=== PATIENT | male | born 1950 | race Caucasian/White ===

== ENCOUNTER → 2020-08-18 09:40 | Outpatient (BNVA) | payer MEDICARE, MEDICAID, SELFPAY | PROVIDERS: PCP Internal Medicine; Visit Provider Urology | DX: N40.1 Benign prostatic hyperplasia with lower urinary tract symptoms (principal); N13.8 Other obstructive and reflux uropathy; R39.14 Feeling of incomplete bladder emptying; R35.1 Nocturia | CPT/HCPCS: 99214 ==

== ENCOUNTER 2020-09-01 07:44 | Outpatient (REF) | payer MEDICARE, MEDICAID, SELFPAY ==
[2020-09-01 11:30] LABS: MANUAL DIFF FLAG NO
[2020-09-01 11:37] LABS: Basophils Percent Auto 0.2 % (0-2); Eosinophils Absolute Auto 0.2 X10*3/uL (0.0-0.4); Eosinophils Percent Auto 1.5 % (0-4); Hematocrit 47.6 % (42-52); Hemoglobin 15.4 g/dl (14.0-18.0); Imm Gran Abs Auto 0.43 X10*3/uL (0.00-0.03); Imm Gran Pct Auto 3.2 % (0.0-0.4); Lymphocytes Absolute Auto 1.4 X10*3/uL (1.2-4.9); Lymphocytes Percent Auto 10.8 % (20-40); Mean Corpuscular HGB Conc 32.4 g/dl (31.0-36.0); Mean Corpuscular Hemoglobin 28.8 pg (27.0-33.0); Mean Platelet Volume 10.9 fL (9.4-12.4); Monocytes Absolute Auto 0.8 X10*3/uL (0.1-1.2); Monocytes Percent Auto 5.9 % (2-11); Neutrophils Absolute Auto 10.5 X10*3/uL (2.0-8.3); Neutrophils Percent Auto 78.4 % (45-73); Platelet Count 184 X10*3/uL (160-400); Red Blood Count 5.35 X10*6/uL (4.60-5.80); Red Cell Distribution Width 16.2 % (11.0-16.0); White Blood Count 13.3 X10*3/uL (4.8-10.8)
[2020-09-01 11:54] LABS: Anion Gap 16 (12-20); Blood Urea Nitrogen 24 mg/dL (9-16); Calcium 8.4 mg/dL (8.4-10.2); Carbon Dioxide 27 mmol/L (22-29); Chloride 99 mmol/L (96-108); Estimated Glomerular Filt Rate > 60; Glucose Random 73 mg/dL (60-115); Potassium 4.4 mmol/l (3.3-5.1); Sodium 138 mmol/L (135-145)
== END 2020-09-01 07:45 | disposition home or self-care (01) ==
LOC: HO.HMGCLDS 07:44
PROVIDERS: PCP Internal Medicine; Visit Provider Psychiatry & Neurology Neurology
DX: G70.00 Myasthenia gravis without (acute) exacerbation (principal)
CPT/HCPCS: 36415; 80048; 85025

== ENCOUNTER → 2020-09-21 08:36 | Outpatient (BNVA) | payer MEDICARE, MEDICAID, SELFPAY | PROVIDERS: PCP Internal Medicine; Referring Provider Internal Medicine; Visit Provider Internal Medicine | DX: E03.9 Hypothyroidism, unspecified (principal); E04.2 Nontoxic multinodular goiter; E27.49 Other adrenocortical insufficiency; Z79.899 Other long term (current) drug therapy | CPT/HCPCS: Q3014 ==

== ENCOUNTER 2020-09-23 10:43 | Outpatient (REF) | payer MEDICARE, MEDICAID, SELFPAY ==
[2020-09-23 14:48] LABS: Free T4 (Free Thyroxine) 0.86 ng/dL (0.71-1.85); Thyroid Stimulating Hormone 1.26 uIU/mL (0.32-4.0)
== END 2020-09-23 10:44 | disposition home or self-care (01) ==
LOC: HO.HMGCLDS 10:43
PROVIDERS: PCP Internal Medicine; Visit Provider Internal Medicine
DX: E03.9 Hypothyroidism, unspecified (principal); E04.2 Nontoxic multinodular goiter; I10 Essential (primary) hypertension; E78.5 Hyperlipidemia, unspecified
CPT/HCPCS: 84439; 84443

== ENCOUNTER 2020-09-29 07:49 | Outpatient (REF) | payer MEDICARE, MEDICAID, SELFPAY ==
--- NOTE | 2020-09-29 07:56 | CT_ITS ---
EXAMINATION: CT CHEST WITH CONTRAST CLINICAL INFORMATION: Myasthenia gravis COMPARISON: Previous chest x-rays most recent August 2018 TECHNIQUE: Multidetector volumetric CT imaging of the chest was obtained after the administration of 65mL of Omnipaque 350 intravenous contrast without immediate adverse reactions. Axial MIP volume rendering provided. Sagittal and coronal reformatted images were obtained. This CT examination was performed using dose optimization techniques as appropriate, variously including the following: *Automated exposure control *Adjustment of mA and/or kV according to patient size (this includes techniques or standardized protocols for targeted exams where dose is matched to indication/reason for exam; i.e. extremities or head) *Use of iterative reconstruction technique DLP: 218 mGy-cm FINDINGS: LUNGS: There is a 1.8 x 1.3 cm peripheral or subpleural right lower lobe nodule axial image 441 series 7. This has slightly spiculated margins and adjacent pleural thickening. There is a 2 mm peripheral or subpleural left lower lobe nodule axial image 289 series 7. There is a 2 mm right lower lobe nodule axial image 354 series 7. There is a 4 mm left lower lobe nodule axial image 457 series 7. There is linear scarring or subsegmental atelectasis at the lung bases. MEDIASTINUM: The thyroid gland is normal. No mediastinal mass is seen. There are small bilateral hilar and mediastinal lymph nodes. No enlarged hilar or mediastinal lymph nodes are seen. The heart does not appear enlarged. There is minimal coronary artery calcification. There is no pericardial effusion. The thoracic aorta is normal in caliber. PLEURA: There is no pleural effusion. There is minimal right pleural thickening adjacent to the right lower lobe nodule. AXILLA: No lymphadenopathy. UPPER ABDOMEN: The liver is low in attenuation suggestive of fatty infiltration. There is a calcification in the spleen. OSSEOUS STRUCTURES: There are degenerative changes of the spine. There is curvature of the upper lumbar spine to the right. CT/CT chest w con IMPRESSION: No mediastinal mass seen. 1.8 x 1.3 cm right lower lobe nodule suspicious for malignancy. PET/CT scan or tissue sampling should be considered. Small bilateral hilar and mediastinal lymph nodes. Mild coronary artery calcification. Fatty liver.
[2020-09-29] MEDS: iohexoL 350 MG/ML 100 ML INFUS..BTL IV (08:51)
== END 2020-09-29 07:50 | disposition home or self-care (01) ==
LOC: HO.CT 07:49
PROVIDERS: Visit Provider Psychiatry & Neurology Neurology
DX: G70.00 Myasthenia gravis without (acute) exacerbation (principal)
CPT/HCPCS: 71260

== ENCOUNTER 2020-10-08 09:03 | Outpatient (REF) | payer MEDICARE, MEDICAID, SELFPAY ==
[2020-10-08 12:04] LABS: Prostate Specific Antigen 0.49 ng/mL (<0.05-4.0)
[2020-10-08 12:15] LABS: Alanine Aminotransferase 76 U/L (0-40); Albumin Level 3.9 g/dL (3.5-5.0); Alkaline Phosphatase 65 U/L (39-117); Anion Gap 10 (12-20); Aspartate Amino Transferase 44 U/L (5-37); Bilirubin Total 0.6 mg/dL (0.0-1.0); Blood Urea Nitrogen 25 mg/dL (9-16); Calcium 8.6 mg/dL (8.4-10.2); Carbon Dioxide 28 mmol/L (22-29); Chloride 103 mmol/L (96-108); Estimated Glomerular Filt Rate > 60; Glucose Fasting 94 mg/dL (60-99); Potassium 4.4 mmol/l (3.3-5.1); Sodium 137 mmol/L (135-145); Total Protein 6.2 g/dL (6.5-8.0)
== END 2020-10-08 09:04 | disposition home or self-care (01) ==
LOC: HO.HMGCLDS 09:03
PROVIDERS: PCP Internal Medicine; Referring Provider Psychiatry & Neurology Neurology; Visit Provider Urology
DX: G70.00 Myasthenia gravis without (acute) exacerbation (principal); E03.9 Hypothyroidism, unspecified; I10 Essential (primary) hypertension; E04.2 Nontoxic multinodular goiter; E78.5 Hyperlipidemia, unspecified
CPT/HCPCS: 80048; 80053; 84153

== ENCOUNTER 2020-10-12 09:20 | Outpatient (REF) | payer MEDICARE, MEDICAID, SELFPAY ==
--- NOTE | 2020-10-12 09:34 | XR_ITS ---
EXAMINATION: XR PELVIS CLINICAL INFORMATION: Pain left hip. COMPARISON: AP pelvis 02/21/2019 TECHNIQUE: AP view of the pelvis. FINDINGS: There is a total right hip arthroplasty with prosthetic components in satisfactory alignment. There is mild loss of left hip joint space with periarticular spurring. No bony erosive changes. The SI joints are symmetrical and normal. The soft tissues are normal. XR/XR pelvis 1-2V IMPRESSION: Total right hip arthroplasty with prosthetic components in satisfactory alignment. Unremarkable left hip joint exam.
== END 2020-10-12 09:21 | disposition home or self-care (01) ==
LOC: HO.HOSX 09:20
PROVIDERS: PCP Internal Medicine; Referring Provider Internal Medicine; Visit Provider Orthopaedic Surgery
DX: M70.62 Trochanteric bursitis, left hip (principal); M25.559 Pain in unspecified hip; G70.00 Myasthenia gravis without (acute) exacerbation; Z96.641 Presence of right artificial hip joint
CPT/HCPCS: 72170; 99212

== ENCOUNTER → 2020-10-23 10:07 | Outpatient (BNVA) | payer MEDICARE, MEDICAID, SELFPAY | PROVIDERS: PCP Internal Medicine; Visit Provider Surgery | DX: R91.1 Solitary pulmonary nodule (principal); G70.00 Myasthenia gravis without (acute) exacerbation | CPT/HCPCS: 99205 ==

== ENCOUNTER 2020-10-26 08:14 | Outpatient (REF) | payer MEDICARE, MEDICAID, SELFPAY ==
--- NOTE | 2020-10-26 13:29 | PFT_ITS ---
Forced vital capacity moderately reduced. FEV1 and [id number] are markedly reduced and MVV slightly reduced. Bronchodilator challenge was not given as the patient had used the bronchodilator inhaler just before coming. Total lung capacity and residual volume are normal. Diffusion capacity moderately decreased. CONCLUSION: Moderately severe obstructive airway disorder. Compared to the results of 08/31/2018, FVC, FEV1, and [id number] are all slightly decreased. Diffusion capacity is also moderately decreased. Clinical correlation recommended. David Vizcaino MD MSB/MODL / [id number]
== END 2020-10-26 08:15 | disposition home or self-care (01) ==
LOC: HO.RESP 08:14
PROVIDERS: Visit Provider Surgery
DX: Z01.818 Encounter for other preprocedural examination (principal); R91.1 Solitary pulmonary nodule
CPT/HCPCS: 94010; 94727; 94729

== ENCOUNTER 2020-11-12 08:55 | Outpatient (REF) | payer MEDICARE, MEDICAID, SELFPAY ==
--- NOTE | 2020-11-12 09:00 | XR_ITS ---
EXAMINATION: XR CHEST CLINICAL INFORMATION: Unspecified abdominal pain. Right lower lobe nodule on CT. COMPARISON: Chest CT 09/29/2020, chest radiographs 08/16/2018 TECHNIQUE: Frontal and lateral views of the chest. FINDINGS: There is linear subsegmental atelectasis left lateral base. The lateral view also shows pleural-based density posteriorly in area previously noted nodule on CT 09/29/2020. Current finding may represent pleural-parenchymal scarring/postsurgical change. The vascularity is normal. The heart is normal in size. There is no lobar or segmental airspace consolidation or definite groundglass opacity. There are multilevel degenerative changes thoracic spine. No free air beneath the diaphragms. No pneumothorax. XR/XR chest 2V IMPRESSION: 1. Pleural-based postoperative scarring versus persistent pleural-based density right posterior lower lobe as noted on prior CT 09/29/2020. 2. Disc atelectasis left lateral base. 3. No pneumothorax. No pneumoperitoneum beneath the diaphragms.
--- NOTE | 2020-11-12 09:00 | XR_ITS ---
EXAMINATION: XR ABDOMEN COMPLETE CLINICAL INDICATION: Unspecified abdominal pain COMPARISON: Pelvic radiographs 10/12/2020 TECHNIQUE: Supine and upright views of the abdomen are obtained for a total of 4 views. FINDINGS: There is subcutaneous emphysema is suggested at the right lateral upper abdominal soft tissues near the thoracoabdominal junction. No pneumothorax demonstrated on today's chest radiograph. There is no free air beneath the diaphragm. There is no gaseous dilatation of bowel or differential air-fluid levels. No visible urinary tract calculi. There are multilevel degenerative changes thoracic and lumbosacral spine. Right hip replacement. XR/XR abdomen min 2V IMPRESSION: 1. Subcutaneous gas suggested upper right lateral abdominal wall near thoracoabdominal junction. 2. No bowel obstruction or pneumoperitoneum. No pneumothorax on today's chest x-ray.
[2020-11-12 11:36] LABS: Estimated Average Glucose 117 mg/dL; Hemoglobin A1c % 5.7 %
[2020-11-12 11:55] LABS: Creatinine Urine 69.05 mg/dL; Microalbum/Creatinine Ratio Ur 52.1 ug/mg cr
[2020-11-12 12:10] LABS: Alanine Aminotransferase 63 U/L (0-40); Albumin Level 4.2 g/dL (3.5-5.0); Alkaline Phosphatase 75 U/L (39-117); Anion Gap 15 (12-20); Aspartate Amino Transferase 48 U/L (5-37); Bilirubin Total 0.6 mg/dL (0.0-1.0); Blood Urea Nitrogen 26 mg/dL (9-16); Calcium 8.8 mg/dL (8.4-10.2); Carbon Dioxide 25 mmol/L (22-29); Chloride 102 mmol/L (96-108); Cholesterol 140 mg/dL; Estimated Glomerular Filt Rate > 60; Glucose Fasting 92 mg/dL (60-99); HDL Cholesterol 57 mg/dL; LDL Cholesterol Calculated 38 mg/dl; Potassium 4.4 mmol/l (3.3-5.1); Sodium 138 mmol/L (135-145); Total Protein 6.8 g/dL (6.5-8.0); Triglycerides 227 mg/dL
== END 2020-11-12 08:56 | disposition home or self-care (01) ==
LOC: HO.HMGCX 08:55
PROVIDERS: PCP Internal Medicine; Visit Provider Surgery
DX: R10.9 Unspecified abdominal pain (principal); R91.1 Solitary pulmonary nodule; E78.5 Hyperlipidemia, unspecified; I10 Essential (primary) hypertension; E03.9 Hypothyroidism, unspecified; E04.2 Nontoxic multinodular goiter
CPT/HCPCS: 36415; 71046; 74019; 80053; 80061; 82043; 83036

== ENCOUNTER → 2020-11-23 09:17 | Outpatient (BNVA) | payer MEDICARE, MEDICAID, SELFPAY | LOC: CF 15:47 | PROVIDERS: Absent Provider Internal Medicine; PCP Internal Medicine; Visit Provider Internal Medicine | DX: J44.9 Chronic obstructive pulmonary disease, unspecified (principal); R91.1 Solitary pulmonary nodule; G70.00 Myasthenia gravis without (acute) exacerbation | CPT/HCPCS: 99212 ==

== ENCOUNTER → 2020-11-24 08:22 | Outpatient (BNVA) | payer MEDICARE, MEDICAID, SELFPAY | PROVIDERS: PCP Internal Medicine; Visit Provider Urology | DX: N40.1 Benign prostatic hyperplasia with lower urinary tract symptoms (principal); R35.1 Nocturia | CPT/HCPCS: 81002; 99212 ==

== ENCOUNTER → 2020-11-27 09:06 | Outpatient (BNVA) | payer MEDICARE, MEDICAID, SELFPAY | PROVIDERS: PCP Internal Medicine; Visit Provider Surgery | DX: R91.1 Solitary pulmonary nodule (principal); Z09 Encounter for follow-up examination after completed treatment for conditions other than malignant neoplasm | CPT/HCPCS: 99212 ==

== ENCOUNTER 2020-12-30 09:16 | Outpatient (REF) | payer MEDICARE, MEDICAID, SELFPAY ==
--- NOTE | ~2020-12-30 | CT_ITS ---
EXAMINATION: CT CHEST WITHOUT CONTRAST CLINICAL INFORMATION: Follow-up pulmonary nodule COMPARISON: Previous chest CT September 2020 TECHNIQUE: Multidetector volumetric CT imaging of the chest was done. Axial MIP volume rendering provided. Sagittal and coronal reformatted images were obtained. This CT examination was performed using dose optimization techniques as appropriate, variously including the following: *Automated exposure control *Adjustment of mA and/or kV according to patient size (this includes techniques or standardized protocols for targeted exams where dose is matched to indication/reason for exam; i.e. extremities or head) *Use of iterative reconstruction technique DLP: 297 mGy-cm FINDINGS: LUNGS: There is a 2 mm peripheral calcified right upper lobe nodule axial image 204 series 7 that is stable. There is a irregularly-shaped 5 mm right middle lobe nodule axial image 329 series 7 that is stable. The previously identified peripheral or subpleural 1.5 cm right lower lobe nodule is no longer seen. There are postsurgical changes with surgical staple line in the right lower lobe and adjacent scarring or subsegmental atelectasis that is new. There is a 3 mm left lower lobe nodule axial image 113 series 8 that appears slightly decreased in size from 4 mm on previous exam. MEDIASTINUM: There is mild coronary artery calcification. The mediastinum is otherwise normal. PLEURA: There is no pleural effusion. No pleural mass or thickening. AXILLA: No lymphadenopathy. UPPER ABDOMEN: Unremarkable OSSEOUS STRUCTURES: There is scoliosis and degenerative change of the spine. CT/CT chest wo con IMPRESSION: New postsurgical change to the right lower lobe. Small pulmonary nodules are stable.
== END 2020-12-30 09:17 | disposition home or self-care (01) ==
LOC: HO.CT 09:16
PROVIDERS: PCP Internal Medicine; Visit Provider Surgery
DX: R91.1 Solitary pulmonary nodule (principal)
CPT/HCPCS: 71250

== ENCOUNTER → 2021-01-06 13:16 | Outpatient (BNVA) | payer MEDICARE, MEDICAID, SELFPAY | PROVIDERS: PCP Internal Medicine; Visit Provider Anesthesiology | DX: M51.36 Other intervertebral disc degeneration, lumbar region (principal); M47.817 Spondylosis without myelopathy or radiculopathy, lumbosacral region; G89.4 Chronic pain syndrome; Z79.899 Other long term (current) drug therapy | CPT/HCPCS: Q3014 ==

== ENCOUNTER → 2021-01-15 09:03 | Outpatient (BNVA) | payer MEDICARE, MEDICAID, SELFPAY | PROVIDERS: PCP Internal Medicine; Visit Provider Surgery | DX: R91.1 Solitary pulmonary nodule (principal); G35 Multiple sclerosis; Z79.899 Other long term (current) drug therapy | CPT/HCPCS: 99212 ==

== ENCOUNTER → 2021-01-27 09:34 | Outpatient (BNVA) | payer MEDICARE, MEDICAID, SELFPAY | PROVIDERS: PCP Internal Medicine; Visit Provider Internal Medicine Cardiovascular Disease | DX: I45.2 Bifascicular block (principal); R06.00 Dyspnea, unspecified | CPT/HCPCS: 93005; 99212 ==

== ENCOUNTER → 2021-02-18 09:28 | Outpatient (BNVA) | payer MEDICARE, MEDICAID, SELFPAY | PROVIDERS: PCP Internal Medicine; Visit Provider Internal Medicine | DX: R91.1 Solitary pulmonary nodule (principal); J44.9 Chronic obstructive pulmonary disease, unspecified; R06.00 Dyspnea, unspecified; Z79.899 Other long term (current) drug therapy | CPT/HCPCS: 99212 ==

== ENCOUNTER 2021-02-19 11:39 | Day surgery (SDC) | payer MEDICARE, MEDICAID, SELFPAY ==
[2021-02-17 10:08] VITALS: BMI 33.9
--- NOTE | 2021-02-17 13:08 | P.CONAN_ITS ---
Documented by User: Alexandria Cox 02/18/21 09:13 HPI - Anesthesia Eval Consult details Narrative: 71yo M for Lumbar Spinal Cord Simulation Trial *Myesthenia Gravis - daily pyridostigmine and prednisone* Cardiac cleared at [facility] without pending ECHO and 30 day YOLANDA (w/u for new l eft posterior fasicular block) s/p Davinci right lower lobe wedge resection on 11/10/2020 for a spiculated nodule at the base of the right lower lobe Case reviewed with Dr Namrata STANLEY Active Problems Active Problems: All Active Problems (Updated 02/17/21 @ 10:23 by Cece Maddox) BPH loc w urin obs/LUTS (Acute) Nocturia associated with benign prostatic hyperplasia (Acute) Incomplete emptying of bladder due to benign prostatic hyperplasia (Acute) Pulmonary nodule (Acute) Bifascicular block (Acute) JULIEN (dyspnea on exertion) (Acute) Chronic pain syndrome (Acute) Spondylosis of lumbosacral region (Acute) Disc degeneration, lumbar (Acute) Hyperglycemia (Acute) Abdominal pain (Acute) Myasthenia gravis (Acute) Hyperlipidemia (Acute) Hypertension (Acute) Toe ulcer (Acute) Iatrogenic adrenal insufficiency (Acute) Multinodular thyroid (Acute) Hypothyroid (Acute) COPD (chronic obstructive pulmonary disease) (Acute) Past Medical History Medical History Abdominal pain Arthritis Back pain Chronic pain syndrome COPD (chronic obstructive pulmonary disease) Degenerative disc disease, lumbar Diastolic dysfunction Disc degeneration, lumbar JULIEN (dyspnea on exertion) Emphysema of lung GERD (gastroesophageal reflux disease) Hyperglycemia Hyperlipidemia Hypertension Hypothyroid Iatrogenic adrenal insufficiency Iron deficiency anemia Leg cramps Lung nodule Multinodular thyroid Myasthenia gravis Osteoarthritis 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 Mother No problems noted. Surgical History Surgical History History of hydrocelectomy History of lung surgery History of total right hip arthroplasty Hx of colonoscopy Hx of tonsillectomy Social History Social History Are you a primary caregivers non medical to a significant other at home: No Do you presently have visiting nurse or other home services: No Smoking Status: Never smoker Second Hand Smoke Exposure: No Use of substances other than those prescribed or required for medical reasons: No Have you been hit, kicked, punched, or otherwise hurt by someone within the past year? If so, by whom?: No Advance Directives: No Advance Directives Information Provided: No Advance Directives on File: No Recently lost weight without trying: No Current occupational status: retired Current occupation: right handed Meds Allergies Allergy/AdvReac Type Severity Reaction Status Date / Time No Known Allergies Allergy Verified 02/17/21 09:49 [No Known Allergies*] Home Medications Medication Instructions Recorded Confirmed Last Taken Type albuterol sulfate 90 mcg/actuation 2 puff INHALATION Q4-6H PRN 08/18/20 02/17/21 Unknown History aerosol inhaler atorvastatin 20 mg tablet 20 mg PO DAILY 08/18/20 02/17/21 Unknown History clotrimazole-betamethasone 1 1 applic TOPICAL DAILY 08/18/20 02/17/21 Unknown History %-0.05 % topical cream levothyroxine 50 mcg tablet 50 mcg PO DAILY 08/18/20 02/17/21 02/19/21 History tamsulosin 0.4 mg capsule 0.4 mg PO DAILY 08/18/20 02/17/21 Unknown History acetaminophen [Tylenol] 650 mg PO Q6H PRN 08/28/20 02/17/21 02/19/21 History multivitamin 1 cap PO DAILY 08/28/20 02/17/21 Unknown History lisinopril 20 mg tablet 20 mg PO DAILY 09/21/20 02/17/21 Unknown History prednisone 10 mg tablet 5 mg PO TID tab 01/27/21 02/17/21 02/19/21 History pyridostigmine bromide 60 mg tablet 60 mg PO TID tab 01/27/21 02/17/21 02/19/21 History guaifenesin 600 mg tablet, 600 mg PO ONCE tab 02/18/21 Unknown History extended release 12 hr Exam Exam Date and Time: February 17, 2021 1308 Height,Weight and Vital Signs: Height 6 ft Weight 113.398 kg Pertinent Lab Results Pertinent Lab Results: Laboratory Tests 09/01/20 11/12/20 07:54 09:00 WBC 13.3 H Hgb 15.4 Hct 47.6 Plt Count 184 Sodium 138 Potassium 4.4 Chloride 102 Carbon Dioxide 25 BUN 26 H Creatinine 0.97 Narrative Narrative: EKG 01/2021 Sinus rhythm at 70 beats per minute, left posterior fascicular block, right bundle-branch block, PVC, poor R-wave progression. Inferior T-wave inversions (chronic). ECHO 2017 LV systolic function is normal EF 65-70% Mod increased LV wall thickness Grade 1-2 DD No obvious valve pathology Assessment and Plan Assessment Anesthesia Assessment: Chart Reviewed Documented by User: Zhanna Morgan 02/19/21 14:30 [facility] Past Medical History Medical History Abdominal pain Arthritis Back pain Chronic pain syndrome COPD (chronic obstructive pulmonary disease) Degenerative disc disease, lumbar Diastolic dysfunction Disc degeneration, lumbar JULIEN (dyspnea on exertion) Emphysema of lung GERD (gastroesophageal reflux disease) Hyperglycemia Hyperlipidemia Hypertension Hypothyroid Iatrogenic adrenal insufficiency Iron deficiency anemia Leg cramps Lung nodule Multinodular thyroid Myasthenia gravis Osteoarthritis 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 Mother No problems noted. Surgical History Surgical History History of hydrocelectomy History of lung surgery History of total right hip arthroplasty Hx of colonoscopy Hx of tonsillectomy Social History Social History Are you a primary caregivers non medical to a significant other at home: No Do you presently have visiting nurse or other home services: No Smoking Status: Never smoker Second Hand Smoke Exposure: No Use of substances other than those prescribed or required for medical reasons: No Have you been hit, kicked, punched, or otherwise hurt by someone within the past year? If so, by whom?: No Advance Directives: No Advance Directives Information Provided: No Advance Directives on File: No Recently lost weight without trying: No Current occupational status: retired Current occupation: right handed Meds Allergies Allergy/AdvReac Type Severity Reaction Status Date / Time No Known Allergies Allergy Verified 02/17/21 09:49 [No Known Allergies*] Home Medications Medication Instructions Recorded Confirmed Last Taken Type albuterol sulfate 90 mcg/actuation 2 puff INHALATION Q4-6H PRN 08/18/20 02/17/21 Unknown History aerosol inhaler atorvastatin 20 mg tablet 20 mg PO DAILY 08/18/20 02/17/21 Unknown History clotrimazole-betamethasone 1 1 applic TOPICAL DAILY 08/18/20 02/17/21 Unknown History %-0.05 % topical cream levothyroxine 50 mcg tablet 50 mcg PO DAILY 08/18/20 02/17/21 02/19/21 History tamsulosin 0.4 mg capsule 0.4 mg PO DAILY 08/18/20 02/17/21 Unknown History acetaminophen [Tylenol] 650 mg PO Q6H PRN 08/28/20 02/17/21 02/19/21 History multivitamin 1 cap PO DAILY 08/28/20 02/17/21 Unknown History lisinopril 20 mg tablet 20 mg PO DAILY 09/21/20 02/17/21 Unknown History prednisone 10 mg tablet 5 mg PO TID tab 01/27/21 02/17/21 02/19/21 History pyridostigmine bromide 60 mg tablet 60 mg PO TID tab 01/27/21 02/17/21 02/19/21 History guaifenesin 600 mg tablet, 600 mg PO ONCE tab 02/18/21 Unknown History extended release 12 hr Exam Airway Mallampati Class: III TM Dist: >3cm Neck ROM: Limited Heart: RRR Lungs: CTA Assessment and Plan Assessment Anesthesia Assessment: Anesthesia Plan Discussed and Chart Reviewed Final Anesthetic Review NPO: Yes ASA Class: III Final Preanesthetic Review: Meds/Allgs Chart Reviewed, Consent Obtained/Reviewed and Anes Risks/Benef Reviewed Patient Risk: Intermediate Procedure Risk: Intermediate Anesthetic Plan Anesthetic Plan: MAC: Disposition: Standard PACU
--- NOTE | ~2021-02-19 | FL_ITS ---
EXAMINATION: XR FLUOROSCOPY WITH IMAGES CLINICAL INFORMATION: Spinal stimulator trial COMPARISON: CT chest 12/30/2020, abdomen radiographs 11/12/2020 TECHNIQUE: Fluoroscopy performed by Dr. Fernie Bernstein. Fluoroscopy time: 7.1 minutes DAP: 72.2 Gycm2 Images: 2 FINDINGS: There is spinal stimulator electrode seen overlying the posterior thoracic spinal canal with electrode tip at level of T9. There are degenerative changes lower thoracic and upper lumbar spine with disc narrowing and asymmetric lateral bridging osteophytes. FL/FL guidance in OR IMPRESSION: Fluoroscopy for pain management procedure.
[2021-02-19 13:08] VITALS: BP 150/87; PULSE 68; RESP 19; TEMP 36.6; O2SAT 98; BMI 33.2
[2021-02-19] MEDS: Lactated Ringers 1,000 ML 50 ML IV (13:12)
--- NOTE | 2021-02-19 13:17 | PC.NURSE ---
question of cardiac clearance per Dr Morgan. Patient was seen by cardiology on 01/27/21
--- NOTE | 2021-02-19 13:20 | PC.NURSE ---
Per Dr Morgan she spoke to Dr Lares and mary to proceed with stimulator procedure
--- NOTE | 2021-02-19 13:52 | MHC.SHP ---
Pre-Procedural Eval Section A The patient is an INPATIENT: No Changes since office visit: Yes Patient answered all questions The History & Physical has been completed within 30 days and I have reviewed it.: No Section B Chief Complaint: Spondylosis of lubosacral region,disc degeneration Details of Present Illness: as above Relevant Family History (Specify if Yes): No Relevant Social History: None Present Medications: see Short Stay Collaborative assessment Medical History: Significant History History of Previous Operations: No relevant previous surgery Allergies: Allergies Allergy/AdvReac Type Severity Reaction Status Date / Time No Known Allergies Allergy Verified 02/17/21 09:49 [No Known Allergies*] Review of Systems Sugical H&P ROS: Negative: Cardiovascular, Respiratory, Neurological, Psychiatric, Hem-Onc, Allergic/Immunologic, Gastrointestinal, Genitourinary, Integumentary, Endocrine and Eyes/Ears/Nose/Throat and Yes, Specify: Constitution (morbid obesity) and Musculoskeletal (miastenia gravis) Exam Surgical H&P Exam: Normal: HEENT, Normal: Heart, Normal: Lungs, Normal: Extremities, Normal: Abdomen, Normal: Skin and Normal: Neurological Plan Diagnosis/Plan: Unchanged I have reviewed the history and physical and performed a pertinent physical examination on my patient. No changes have occurred unless specified.
--- NOTE | 2021-02-19 15:34 | PM.OP ---
Brief Operative Note Date of Service: 02/19/21 Pre-op diagnosis: Spondylosis lumbar spine disc degeneration scoliosis lumbar spine intractable lower back pain. Post-op diagnosis: same Procedure: Trial of Nevro spinal cord stimulator 1 lead only. Implants: None firm Surgeon: Fernie Bernstein MD Anesthesia: MAC Estimated blood loss (mL): 5 Pathology: none sent Condition: stable Disposition: PACU
--- NOTE | 2021-02-19 15:36 | W.PM.OPN ---
Operative Note Operative Note Date of Service: 02/19/21 Narrative: Mr. Leonard is very pleasant 71 years old gentleman who came today into the operating room for trial of spinal cord stimulator for the treatment of pain related to degenerative disc disease and chronic pain syndrome. Preoperatively patient received 2 g cefazolin _approximately 30 minutes before the procedure. After obtaining informed consent patient was brought to the operating room, he was positioned prone on operating table, [employer] [employer] monitors were applied and patient was deeply sedated. Time-out was performed delineating correct site, side, the nature of the procedure, patient's allergy, preoperative antibiotic. All operating room staff was participating in OR time-out procedure. Patient's entire back was prepped with ChloraPrep twice and draped with full body drape. Sterilely draped C-arm was brought over operating field and square picture of T12, L1, L2 vertebrae as were demonstrated on the screen. Severe scoliosis and severe spondylosis with multiple osteophytes some of those were kissing osteophytes were noted on the screen. . Attention FIRST was concentrated on the RIGHT T12-L1 epidural interspace. Very narrow distance between the vertebra is at L1-L2 levels and kissing osteophytes at this level were making impossible to advanced the needle into the epidural space at L1-L2. The same picture short of kissing osteophytes was at L2-L3 level. Most likely there were significant epidural adhesions at those levels which would prevent me to advance the electrode arrays to the thoracic level. The location of the projection of the right pedicle center of the L2 vertebra was found on the skin using C-arm. This location was injected with mixture of lidocaine 2% and Marcaine 0.5% 5 cc in approximate direction of needle advancement.. After that 10 cm 14 gauge straight introducer epidural needle was inserted through the fascia and advanced toward T12-L1 epidural interspace. The advancement of the needle was performed on anterior posterior and lateral views. Guitar wire and loss of resistance technique were used to locate epidural space. When guitar wire was spread in the epidural fashion, epidural lead was inserted through the skin and it was attempted to advance in the epidural space however unfortunately it deviated into the anterior epidural space and severe adhesions were preventing it to go to the right epidural space few mm above the needle tip. The decision was made to attempt insertion of the epidural needle on the left side and use the right side as a guide for the right epidural leads. Locationf the projection of the LEFT pedicle center of the L2 vertebra was found -using C-arm. This location was injected with mixture of lidocaine 2% and Marcaine 0.5% 5 cc.. . 10 cm 14 gauge curved introducer epidural needle was inserted through the skin and advanced to T12-L1 epidural interspace. The advancement of the needle was performed on anterior posterior and lateral views. Guitar wire and loss of resistance technique were used to locate epidural space. When guitar wire was spread in the epidural fashion, epidural lead was inserted through the needle and advanced to the T9 POSTERIOR EPIDURAL SPACE SLIGHTLY left to the midline. I was unable to advance the epidural leads any further T9 midlevel the epidural lead was bumping into the adhesions and looping inside of the epidural space patient was moving and he was clearly uncomfortable. The decision was made to keep this epidural lead at T9 level. After that 10 cm needle was removed from the projection of the L2 pedicle on the right and replaced with 15 cm coude needle. Attempts were made to advance this needle to the epidural space at T11-T12 level however the distance between the lamina as at this level was so small that I could not squeeze the needle through this interlaminar space. The decision made to remove the needle and attend the trial on 1 epidural lead. The lead was connected to the testing device and impedance was found appropriate. After that testing device was disconnected epidural needle was removed and anchoring device was dislodged on the needle. It was stitched to the skin with 2 silk sutures. Bacitracin ointment was applied to the level of the skin. Sterile dressing was applied. At this moment patient was awaken and transferred to the bed. He was recovering uneventfully in PACU.
[2021-02-19 15:40] VITALS: BP 123/79; PULSE 68; RESP 14; TEMP 36.7; O2SAT 94
[2021-02-19 15:55] VITALS: BP 142/84; PULSE 66; RESP 18; O2SAT 96
[2021-02-19 16:10] VITALS: BP 144/84; PULSE 64; RESP 17; O2SAT 95
== END 2021-02-19 16:50 | disposition home or self-care (01) ==
PROVIDERS: PCP Internal Medicine; Visit Provider Anesthesiology
PROC: (CPT 63650; principal; 2021-02-19 13:40)
DX: M47.817 Spondylosis without myelopathy or radiculopathy, lumbosacral region (principal); M51.36 Other intervertebral disc degeneration, lumbar region; G89.4 Chronic pain syndrome; G96.12 Meningeal adhesions (cerebral) (spinal); M25.78 Osteophyte, vertebrae; M48.26 Kissing spine, lumbar region; M41.9 Scoliosis, unspecified; G70.00 Myasthenia gravis without (acute) exacerbation; J44.9 Chronic obstructive pulmonary disease, unspecified; I10 Essential (primary) hypertension; E27.3 Drug-induced adrenocortical insufficiency; D50.9 Iron deficiency anemia, unspecified; Z79.52 Long term (current) use of systemic steroids; Z79.899 Other long term (current) drug therapy
CPT/HCPCS: 63650; C1897; J0690; J2250; J3010

== ENCOUNTER → 2021-02-25 10:23 | Outpatient (BNVA) | payer MEDICARE, MEDICAID, SELFPAY | PROVIDERS: PCP Internal Medicine; Visit Provider Anesthesiology | DX: M51.36 Other intervertebral disc degeneration, lumbar region (principal); M47.817 Spondylosis without myelopathy or radiculopathy, lumbosacral region; G89.4 Chronic pain syndrome | CPT/HCPCS: 99212 ==

== ENCOUNTER → 2021-03-15 12:55 | Outpatient (REF) | payer MEDICARE, MEDICAID, SELFPAY ==
--- NOTE | 2021-03-15 12:58 | HM_ITS ---
ENROLLMENT PERIOD: 03/15/2021 to 04/14/2021. Total period of 30 days. REASON FOR TEST: Other specified heart block. FINDINGS: Baseline rhythm is normal sinus rhythm with heart rate varying from 71 beats per minute to 81 beats per minute. Baseline IVCD was noted. Rare isolated PVCs were noted. The patient reported symptoms of dizziness and shortness of breath correlated with sinus rhythm. CONCLUSION: Cardiac event monitor is remarkable for: 1. Baseline normal sinus rhythm with isolated PVCs. 2. No significant tachy or bradyarrhythmias. 3. The patient reported events correlated with sinus rhythm. Magnus Avalos MD NRS/MODL / [id number]
== END ==
LOC: HO.CARD 12:55
PROVIDERS: PCP Internal Medicine; Visit Provider Internal Medicine Cardiovascular Disease
DX: I45.2 Bifascicular block (principal)
CPT/HCPCS: 93270; 93272

== ENCOUNTER → 2021-03-23 08:23 | Outpatient (REF) | payer MEDICARE, MEDICAID, SELFPAY ==
--- NOTE | 2021-03-23 08:28 | CA_ITS ---
Transthoracic Echocardiogram Patient (Last, First, Middle): Olegario Leonard C Gender: Male Date of : 1950 Age: 71 Procedure Date: 03/23/2021 Procedure Type: Transthoracic Echocardiogram Location: OP Height: 182. cm Weight: 113.4 kg BSA: 2.33 m2 Heart Rate: bpm BP: 124 / 80 mmHg Medical Support Assistant: Referring MD: Giorgio Lares MD Symptoms: R06.00 - Dyspnea, unspecified Study Quality: Good ECG Rhythm: Sinus Conclusions: - 1. Normal LV systolic function with moderate LVH with impaired relaxation filling pattern 2. Moderately dilated left atrium 3. Normal cardiac valvular Doppler 4. Normal RV systolic pressure 5. No pericardial effusion Findings Left Ventricle Normal left ventricular size and systolic function. There is moderately increased left ventricular wall thickness. The visually estimated ejection fraction is between 60-65%. Spectral Doppler is indicative of an impaired relaxation filling pattern. E/E prime ratio is between 8 and 15 consistent with indeterminate filling pressures. Right Ventricle Normal right ventricular cavity size and systolic function. Atria The left atrium is moderately dilated. There is no evidence of interatrial shunt. The right atrium is normal in size. Aortic Valve Normal aortic valve structure and function. There is no aortic valve stenosis. There is no aortic valve regurgitation. Mitral Valve Normal mitral valve structure and function. There is trace mitral valve regurgitation. There is no mitral valve stenosis. Pulmonic Valve The pulmonic valve is likely normal. Tricuspid Valve Normal tricuspid valve structure. There is trace tricuspid valve regurgitation. The right ventricular systolic pressure is normal. The right ventricular systolic pressure is 17 mmHg. Normal right atrial pressure. There is no evidence of pulmonary hypertension. Great Vessels All visible segments of the aorta are normal in size. The pulmonary artery was not well visualized. Venous The inferior vena cava is normal in size and collapses greater than 50% with inspiration. Pericardium/Pleural There is no evidence of pericardial effusion. Prior Study Comparison No significant change compared to prior study dated: 06/11/2018. Measurements 2D Linear Measurements IVSd: 1.49 0.6-0.9/0.6-1.0 cm LVIDd: 4.02 3.9-5.3/4.2-5.9 cm LVIDd Index: 1.73 2.4-3.2/2.2-3.1 cm/m2 LVIDs: 2.61 2.0-3.6 cm LVPWd: 1.53 0.7-1.1 cm Ao Root: 3.40 2.1-3.5 cm LA Diam: 4.40 2.7-3.8/3.0-4.0 cm LAIDs Index: 1.89 1.5-2.3 cm/m2 LV Mass: 332.05 67-162/88-224 g LV Mass Index: 142.51 43-95/49-115 g/m2 LVOT Diam: 2.10 3.0+(-)1.3 cm Mitral Valve MV Pk E: 0.64 MV PK A: 0.90 MV Decel Time: 165.00 E/A: 0.70 E'Lateral: 5.42 E'Medial: 3.96 E/E' Med: 16.00 E/E' Lat: 11.70 PHT: 48.00 MVA PHT: 4.58 Decel Bath: 3.84 Aortic Valve AoV Pk Van: 1.58 AoV Mn Van: 1.11 AoV VTI: 0.33 AoV Pk Grad: 10.00 Aov Mn Grad: 6.00 KATHIA Cont.VTI: 3.00 LVOT LVOT Pk Van: 1.53 LVOT Mn Van: 0.96 LVOT VTI: 0.29 LVOT Pk Grad: 9.00 LVOT Mn Grad: 5.00 LVOT Diam: 2.10 LVOT Area: 3.46 Diastolic Function MV Pk E: 0.64 MV Pk A: 0.90 E/A: 0.70 E'Medial: 3.96 E/E' Med: 16.00 E' Laterial: 5.42 E/E' Lat: 11.70 Tricuspid Valve TR Pk Van: 1.89 TR Pk Grad: 14.00 RA Press: 3.00 RVSP: 17.00 Great Vessels Aorta Ao Root-2D: 3.40 2.0-3.7 cm Ao Asc: 3.30 2.1-3.4 cm Pulmonary Valve PV Pk Van: 1.50 Peak PV Grad: 9.00 Updated in Other Vendor System with Status of Final Magnus Avalos MD electronically signed on 03/24/2021 9:13:13 AM with status of Final
== END ==
LOC: HO.CARD 08:23
PROVIDERS: Visit Provider Internal Medicine Cardiovascular Disease
DX: I45.2 Bifascicular block (principal); R06.00 Dyspnea, unspecified
CPT/HCPCS: 93306

== ENCOUNTER → 2021-03-26 08:20 | Day surgery (SDC) | payer MEDICARE, MEDICAID, SELFPAY ==
--- NOTE | 2021-03-25 09:14 | HO.ANESPROP2 ---
Documented by User: Alexandria Esquivelney 03/25/21 09:38 HPI - Anesthesia Eval Consult details Narrative: 71yo M for Lumbar Spinal Cord Simulation Implant s/p stim trial 02/19/21 with MAC *Myesthenia Gravis - daily pyridostigmine and prednisone* Cardiac cleared at [facility] without pending ECHO and 30 day YOLANDA (w/u for new left posterior fasicular block) - ECHO done s/p Davinci right lower lobe wedge resection on 11/10/2020 for a spiculated nodule at the base of the right lower lobe Case reviewed with Dr Ott / T/C between Dr Morgan and ZAY Jeronimo to proceed per cardiology [facility] Active Problems Active Problems: All Active Problems (Updated 02/18/21 @ 10:24 by David Vizcaino MD) GERD (gastroesophageal reflux disease) (Acute) BPH loc w urin obs/LUTS (Acute) Nocturia associated with benign prostatic hyperplasia (Acute) Incomplete emptying of bladder due to benign prostatic hyperplasia (Acute) Pulmonary nodule (Acute) Bifascicular block (Acute) JULIEN (dyspnea on exertion) (Acute) Chronic pain syndrome (Acute) Spondylosis of lumbosacral region (Acute) Disc degeneration, lumbar (Acute) Hyperglycemia (Acute) Abdominal pain (Acute) Myasthenia gravis (Acute) Hyperlipidemia (Acute) Hypertension (Acute) Toe ulcer (Acute) Iatrogenic adrenal insufficiency (Acute) Multinodular thyroid (Acute) Hypothyroid (Acute) COPD (chronic obstructive pulmonary disease) (Acute) Past Medical History Medical History Abdominal pain Arthritis Back pain Chronic pain syndrome COPD (chronic obstructive pulmonary disease) Degenerative disc disease, lumbar Diastolic dysfunction Disc degeneration, lumbar JULIEN (dyspnea on exertion) Emphysema of lung GERD (gastroesophageal reflux disease) Hyperglycemia Hyperlipidemia Hypertension Hypothyroid Iatrogenic adrenal insufficiency Iron deficiency anemia Leg cramps Lung nodule Multinodular thyroid Myasthenia gravis Osteoarthritis 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 Mother No problems noted. Surgical History Surgical History History of hydrocelectomy History of lung surgery History of total right hip arthroplasty Hx of colonoscopy Hx of tonsillectomy Social History Social History Smoking Status: Never smoker Second Hand Smoke Exposure: No Use of substances other than those prescribed or required for medical reasons: No Are you DNR?: No Advance Directives: No Advance Directives Information Provided: Yes Current occupational status: retired Current occupation: right handed Meds Allergies Allergy/AdvReac Type Severity Reaction Status Date / Time No Known Allergies Allergy Verified 03/08/21 11:54 [No Known Allergies*] Home Medications Medication Instructions Recorded Confirmed Last Taken Type albuterol sulfate 90 mcg/actuation 2 puff INHALATION Q4-6H PRN 08/18/20 03/08/21 Unknown History aerosol inhaler atorvastatin 20 mg tablet 20 mg PO DAILY 08/18/20 03/08/21 Unknown History clotrimazole-betamethasone 1 1 applic TOPICAL DAILY 08/18/20 03/08/21 Unknown History %-0.05 % topical cream levothyroxine 50 mcg tablet 50 mcg PO DAILY 08/18/20 03/08/21 02/19/21 History tamsulosin 0.4 mg capsule 0.4 mg PO DAILY 08/18/20 03/08/21 Unknown History acetaminophen [Tylenol] 650 mg PO Q6H PRN 08/28/20 03/08/21 02/19/21 History multivitamin 1 cap PO DAILY 08/28/20 03/08/21 Unknown History lisinopril 20 mg tablet 20 mg PO DAILY 09/21/20 03/08/21 Unknown History prednisone 10 mg tablet 5 mg PO TID tab 01/27/21 03/08/21 03/26/21 History pyridostigmine bromide 60 mg tablet 60 mg PO TID tab 01/27/21 03/08/21 03/26/21 History guaifenesin 600 mg tablet, 600 mg PO ONCE tab 02/18/21 03/08/21 Unknown History extended release 12 hr Exam Exam Date and Time: March 25, 2021 0914 Narrative Narrative: ECHO 03/2021 Conclusions: - 1. Normal LV systolic function with moderate LVH with impaired relaxation filling pattern 2. Moderately dilated left atrium 3. Normal cardiac valvular Doppler 4. Normal RV systolic pressure 5. No pericardial effusion EKG 01/2021 Sinus rhythm at 70 beats per minute, left posterior fascicular block, right bundle-branch block, PVC, poor R-wave progression. Inferior T-wave inversions (chronic). Stress MIBI 2017 Negative for ischemia Assessment and Plan Assessment Anesthesia Assessment: Chart Reviewed Documented by User: Awilda Winchester 03/26/21 10:13 [facility] Past Medical History Medical History Abdominal pain Arthritis Back pain Chronic pain syndrome COPD (chronic obstructive pulmonary disease) Degenerative disc disease, lumbar Diastolic dysfunction Disc degeneration, lumbar JULIEN (dyspnea on exertion) Emphysema of lung GERD (gastroesophageal reflux disease) Hyperglycemia Hyperlipidemia Hypertension Hypothyroid Iatrogenic adrenal insufficiency Iron deficiency anemia Leg cramps Lung nodule Multinodular thyroid Myasthenia gravis Osteoarthritis 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 Mother No problems noted. Family history of problems with anesthesia: No Surgical History Surgical History History of hydrocelectomy History of lung surgery History of total right hip arthroplasty Hx of colonoscopy Hx of tonsillectomy History of Problems with Anesthesia: No Social History Social History Smoking Status: Never smoker Second Hand Smoke Exposure: No Use of substances other than those prescribed or required for medical reasons: No Are you DNR?: No Advance Directives: No Advance Directives Information Provided: Yes Current occupational status: retired Current occupation: right handed Meds Allergies Allergy/AdvReac Type Severity Reaction Status Date / Time No Known Allergies Allergy Verified 03/08/21 11:54 [No Known Allergies*] Home Medications Medication Instructions Recorded Confirmed Last Taken Type albuterol sulfate 90 mcg/actuation 2 puff INHALATION Q4-6H PRN 08/18/20 03/08/21 Unknown History aerosol inhaler atorvastatin 20 mg tablet 20 mg PO DAILY 08/18/20 03/08/21 Unknown History clotrimazole-betamethasone 1 1 applic TOPICAL DAILY 08/18/20 03/08/21 Unknown History %-0.05 % topical cream levothyroxine 50 mcg tablet 50 mcg PO DAILY 08/18/20 03/08/21 02/19/21 History tamsulosin 0.4 mg capsule 0.4 mg PO DAILY 08/18/20 03/08/21 Unknown History acetaminophen [Tylenol] 650 mg PO Q6H PRN 08/28/20 03/08/21 02/19/21 History multivitamin 1 cap PO DAILY 08/28/20 03/08/21 Unknown History lisinopril 20 mg tablet 20 mg PO DAILY 09/21/20 03/08/21 Unknown History prednisone 10 mg tablet 5 mg PO TID tab 01/27/21 03/08/21 03/26/21 History pyridostigmine bromide 60 mg tablet 60 mg PO TID tab 01/27/21 03/08/21 03/26/21 History guaifenesin 600 mg tablet, 600 mg PO ONCE tab 02/18/21 03/08/21 Unknown History extended release 12 hr Exam Height,Weight and Vital Signs: Vital Signs Temp Pulse Resp BP Pulse Ox 03/26/21 08:50 98.7 F 68 16 140/89 H 96 Airway Mallampati Class: III TM Dist: >3cm Neck ROM: Full Heart: RRR Lungs: CTAB Assessment and Plan Assessment Anesthesia Assessment: Anesthesia Plan Discussed and Chart Reviewed Final Anesthetic Review NPO: Yes ASA Class: III Final Preanesthetic Review: No Changes in Pt Med Stat, Meds/Allgs Chart Reviewed, Consent Obtained/Reviewed and Anes Risks/Benef Reviewed Patient Risk: Intermediate Procedure Risk: Intermediate Assessment/Block/Sedation in SS: Assess/Block/Sedation-SS Anesthetic Plan Anesthetic Plan: GA (Patient with myasthenia gravis. Symptoms seem under control on daily meds. No recent change in meidcation or symptoms. No problems with anesthesia in the past. ? Difficult airway- Mallampati 3. Will intubate with a reduced dose of non-depolarizing muscle relaxant. Also dose of steroids) Disposition: Extended PACU
[2021-03-26] VITALS (11 sets, daily range): BP systolic 115–146; BP diastolic 63–89; PULSE 63–82; RESP 16–20; TEMP 36.7–37.1; O2SAT 94–99; BMI 33.9
--- NOTE | ~2021-03-26 | FL_ITS ---
EXAMINATION: XR FLUOROSCOPY WITH IMAGES CLINICAL INFORMATION: Spinal stimulator implant COMPARISON: Fluoroscopic spot images 02/19/2021, CT chest 12/30/2020 TECHNIQUE: Fluoroscopy performed by Dr. Fernie Bernstein. Fluoroscopy time: 0.9 minutes DAP: 16.2 Gycm2 Images: 2 FINDINGS: There is a spinal stimulator electrode seen overlying the posterior spinal canal with tip at approximately lateral lower aspect T9. There are multilevel degenerative changes with bridging osteophytes lower thoracic spine. FL/FL guidance in OR IMPRESSION: Fluoroscopy for pain management procedure.
[2021-03-26] MEDS: ceFAZolin Sodium/Dextrose,Iso 2 GM/50 ML PIGGYBACK IV (09:12)
--- NOTE | 2021-03-26 09:25 | MHC.SHP ---
Pre-Procedural Eval Section A The patient is an INPATIENT: No Changes since office visit: Yes Patient answered all questions The History & Physical has been completed within 30 days and I have reviewed it.: No Section B Chief Complaint: spondylosis Details of Present Illness: as above Relevant Family History (Specify if Yes): No Relevant Social History: None Present Medications: None Medical History: Significant History (miastenia gravis) History of Previous Operations: No relevant previous surgery Allergies: Allergies Allergy/AdvReac Type Severity Reaction Status Date / Time No Known Allergies Allergy Verified 03/08/21 11:54 [No Known Allergies*] Review of Systems Sugical H&P ROS: Negative: Cardiovascular, Respiratory, Neurological, Psychiatric, Hem-Onc, Allergic/Immunologic, Gastrointestinal, Genitourinary, Integumentary, Endocrine and Eyes/Ears/Nose/Throat and Yes, Specify: Constitution (morbid obesity) and Musculoskeletal (miastenia gravis) Exam Surgical H&P Exam: Normal: HEENT, Normal: Heart, Normal: Lungs, Normal: Extremities, Normal: Abdomen, Normal: Skin and Normal: Neurological Plan Diagnosis/Plan: Unchanged I have reviewed the history and physical and performed a pertinent physical examination on my patient. No changes have occurred unless specified.
--- NOTE | 2021-03-26 12:12 | PM.OP ---
Brief Operative Note Date of Service: 03/26/21 Pre-op diagnosis: spondylosis Lumbar spine, scolioisis thoracolumbar spine. Post-op diagnosis: same Procedure: implant of the SCS Nevro Implants: nevro epidural lead and a battery Surgeon: Fernie Bernstein MD Anesthesia: GETA Was an Welfare Eligibility Worker used for this Procedure?: No Estimated blood loss (mL): 16 Pathology: none sent Condition: stable Disposition: PACU
--- NOTE | 2021-03-26 12:19 | W.PM.OPN ---
Operative Note Operative Note Date of Service: 03/26/21 Narrative: Mr. Leonard is very pleasant 71 years old gentleman who came today into the operating room for implant of spinal cord stimulator for the treatment of pain related to degenerative disc disease, spondylosis and scoliosis of lumbar spine as well as chronic pain syndrome. Preoperatively patient received 2 g cefazolin _approximately 30 minutes before the procedure. After obtaining informed consent patient was brought to the operating room, he was positioned supine on the stretcher, [place] [employer] monitors were applied and patient was given general endotracheal anesthesia. After that the patient was transferred to operating table prone, all pressure points were protected. Time-out was performed delineating correct site, side, the nature of the procedure, patient's allergy, preoperative antibiotic. All operating room staff was participating in OR time-out procedure. Patient's entire back was prepped with ChloraPrep twice and draped with full body drape including Ioban film. Sterilely draped C-arm was brought over operating field and square picture of T12, L1, L2 vertebrae were demonstrated on the screen. Severe scoliosis and severe spondylosis with multiple osteophytes some of those were kissing osteophytes were again noted on the screen. Attention FIRST was concentrated on the T12-L1 epidural interspace. Very narrow distance between the vertebra is at L1-L2 levels and kissing osteophytes at this level were making impossible to advanced the needle into the epidural space at L1-L2. The same picture was at L2-L3 level. Most likely there were significant epidural adhesions at those levels which would prevent me to advance the electrode arrays to the thoracic level. The location of the projection of the left pedicle center of the L2 vertebra was found on the skin using C-arm. This location was injected with mixture of lidocaine 2% and Marcaine 0.5% 5 cc in approximate direction of needle advancement.. Small skin marya was made with a scalpel in the projection of the point of interest after that 14 gauge 10 cm coude needle was inserted through the scalpel marya and advanced toward T11-T12 epidural interspace under anterior posterior and lateral views. Guitar wire and loss of resistance technique were used to locate epidural space. When guitar wire was spread in the epidural fashion, epidural lead was inserted through the skin and it was advanced in the epidural space however it made resistance due to epidural adhesions in the epidural space. The epidural needle was withdrawn and blue sheath introducer was dislodged on the body of the catheter and that allowed me to advance the epidural lead to the bottom of T 9 vertebra. I was not able to advance it any further due to resistance the catheter would meet with advancement. We decided to keep this lead as it is. The decision was made to attempt insertion of the epidural needle on the left side and use the already inserted alactrode as a guide for the right epidural leads. Location the projection of the LEFT lowest point of the pedicle pedicle center of the L2 vertebra was found -using C-arm. This location was was attempted to advance toward T12-L1 epidural interspace. The epidural space was reached by using loss of resistance technique and on anterior posterior and lateral views. When loss of resistance felt guitar wire was inserted through the needle but it was failing to advance further than few mm beyond the needle tip. The introducer bougie was attempted to get inserted through the needle however it went inadvertently into the intrathecal space, the introducer bougie and coude needle were withdrawn at once. After that the decision was made to continue with 1 epidural lead at bottom T9 position. This epidural lead appeared to be in the center of the posterior epidural space. The wound in the projection of the L2 vertebra was extended and thorough hemostasis was obtained. Blue sheath introducer was withdrawn and care was taken not to dislodge the epidural lead. The anchoring device was dislodged on the body of the epidural lead and advanced to the level of the prevertebral fascia. It was stitched to the prevertebral fascia with 2 1.0 Tycron sutures and the anchoring screw was tight. Thorough hemostasis was checked and irrigation was performed in the wound. After that attention was concentrated on the left buttock were patient wanted to implant the battery. Local anesthetic was injected 3 cm below the top of the iliac crest in linear horizontal fashion. After that 6.5 cm incision was made on the skin using 10 blade scalpel. Thorough hemostasis was performed and after that using the dull and sharp dissection the pocket for the battery was formed and thorough hemostasis in the pocket was obtained. Thorough irrigation was performed after hemostasis. After that the tunneling device was used to connect the 2 wounds. The epidural lead was dislodged from midline wound to the side pocket wound and connected to the port in the battery. Anchoring sutures Tycron 1.0 were applied in most superior lateral and most superior medial corners of the wound. They were connected to the orifices on the body of the battery. After that the epidural lead was gathered benign the body of the battery and the battery and the leads were inserted into the pocket an mass. Thorough irrigation was repeated on both wounds, after that 0 Vicryl was used to close both wounds, and 2 0 Vicryl was used to approximate the level of the skin. Several skin mary alice were applied to both wounds. Bacitracin ointment was applied to the staple lines. After that sterile dressing using 4 sterile 4x4s were applied. Patient was taking outside of the operating room to PACU. His pacemaker defibrillator was interrogated by the [employer] novelties sales representative while the Nevro spinal cord stimulator is turned on. No malfunctioning of pacemaker/defibrillator was noted while interrogation. Bacitracin ointment was applied to the level of the skin. Sterile dressing was applied. At this moment patient was awaken and transferred to the bed. He was recovering uneventfully in PACU. Patient denied headache postoperative however he admitted pain radiating from the lumbar spine to the left lower extremity going into the pinky toe. He he denied any weakness or numbness in the lower extremity. He was able to urinate. He was released from PACU care and went home. He was instructed to go to an ER if any of the complications would progress or appear anew.
[2021-03-26] MEDS: Acetaminophen 325 MG TABLET 650 MG PO (12:48)
[2021-03-26] MEDS: oxyCODONE HCl Immed Release 5 MG TABLET PO (12:49)
--- NOTE | 2021-03-26 13:29 | PC.NURSE ---
VENDOR CAME TO BEDSIDE TO TURN OFF SIMULATOR TO SEE IF SIMULATOR HAS ANYTHING TO DO WITH PATIENT'S RIGHT 5TH TOE PAIN.
[2021-03-26] MEDS: dexAMETHasone sod phosphate/NS 12 MG/50 ML PIGGYBACK 200 MG IV (14:27)
--- NOTE | 2021-03-26 14:32 | PC.NURSE ---
PATIENT ASSISTED UP TO BATHROOM. PT VOIDED WITHOUT DIFFICULTY. PATIENT GIVEN DECADRON IV PER ORDER AT THIS TIME.
== END ==
PROVIDERS: PCP Internal Medicine; Visit Provider Anesthesiology
PROC: (CPT 63685; principal; 2021-03-26 09:40)
DX: M47.816 Spondylosis without myelopathy or radiculopathy, lumbar region (principal); M51.36 Other intervertebral disc degeneration, lumbar region; M41.85 Other forms of scoliosis, thoracolumbar region; M48.20 Kissing spine, site unspecified; G96.12 Meningeal adhesions (cerebral) (spinal); G95.89 Other specified diseases of spinal cord; Z95.810 Presence of automatic (implantable) cardiac defibrillator
CPT/HCPCS: 63685; 63650 ×2; C1713; C1778; C1816; J0690; J1100; J2250; J2405; J3010; J3370

== ENCOUNTER → 2021-03-31 13:28 | Outpatient (BNVA) | payer MEDICARE, MEDICAID, SELFPAY | PROVIDERS: PCP Internal Medicine; Visit Provider Anesthesiology | DX: M51.36 Other intervertebral disc degeneration, lumbar region (principal); M47.817 Spondylosis without myelopathy or radiculopathy, lumbosacral region; G89.4 Chronic pain syndrome | CPT/HCPCS: 99212 ==

== ENCOUNTER → 2021-04-08 12:40 | Outpatient (BNVA) | payer MEDICARE, MEDICAID, SELFPAY | PROVIDERS: PCP Internal Medicine; Visit Provider Anesthesiology | DX: M51.36 Other intervertebral disc degeneration, lumbar region (principal); M47.817 Spondylosis without myelopathy or radiculopathy, lumbosacral region; G89.4 Chronic pain syndrome | CPT/HCPCS: 99212 ==

== ENCOUNTER → 2021-04-21 10:50 | Outpatient (BNVA) | payer MEDICARE, MEDICAID, SELFPAY | PROVIDERS: PCP Internal Medicine; Visit Provider Internal Medicine Cardiovascular Disease | DX: I45.2 Bifascicular block (principal); I10 Essential (primary) hypertension; R06.00 Dyspnea, unspecified | CPT/HCPCS: 99212 ==

== ENCOUNTER → 2021-05-04 07:47 | Outpatient (REF) | payer MEDICARE, MEDICAID, SELFPAY ==
--- NOTE | ~2021-05-04 | NM_ITS ---
Lexiscan Myocardial perfusion study Indication: Shortness of breath, abnormal EKG, assess for coronary disease and ischemia Technique: The patient was brought in for a Lexiscan perfusion study on 05/04/2021 and was injected 0.4 mg of Lexiscan intravenously. Within a minute of this injection 35 mCi of sestamibi was given intravenously. Images were obtained using the SPECT gamma camera interlaced with the gating device. Images were obtained in supine position. Resting perfusion study was performed on 05/05/2021. Patient was administered 35 mCi of sestamibi intravenously at rest. Images were then obtained in supine position. Total DLP 151mGy-cm. Images were processed with the software and compared side to side in short axis, horizontal long axis and vertical long axis views. Findings: Raw acquisition was reviewed. Arms by the patient's side. The stress perfusion study showed mildly diminished tracer uptake along the basal inferior wall. With CT attenuation correction, there is improvement and hence suggestive of diaphragmatic attenuation artifact. The gated study shows mildly diminished LV systolic function with calculated LVEF of 48%. LV cavity is normal in size. Normal wall thickening. Resting study shows mildly diminished tracer uptake in the basal inferior wall. With CT attenuation correction, there is improvement suggesting diaphragmatic attenuation artifact. Gating at rest reveals normal wall motion with ejection fraction at 47%. The findings are consistent with no reversible defects. Fixed basal inferior defect suspected to be from diaphragmatic artifact. NM/NM cardiolite stress test Impression: 1. Myocardial perfusion imaging study shows no evidence of any ischemia or infarction. Likely normal perfusion. 2. Gated LVEF is 48% during stress and 47% during rest. Correlate with echocardiogram. 3. Transient ischemic dilatation not present. EKG component of the test reported separately.
--- NOTE | 2021-05-04 07:52 | CA_ITS ---
Acquisition Time: 2021-05-04 07:59:29 Total Exercise Time: 00:02:00 Test Indications: Dyspnea Medications: FUROSEMIDE OSOSORBIDE LEVOTHYROXINE LISINOPRIL PREDNISONE ATORVASTATIN FINASTERIDE ALBUTEROL STIOLTO RESPIMAT Protocol: LEXISCAN Max HR: 080 BPM 53% of Pred: 150 BPM Max BP: 130/080 mmHG Max Work Load: 1.0 METS Pharmacological stress test with Lexiscan injection, while sitting and kicking his legs, without anginal symptoms, without arrythmia, with normotensive response to injection, with nondiagnostic EKG for ischemia. Nuclear images pending. Test reviewed with Dr Avalos. Referred By: Giorgio Lares Overread By: BEATRIS DE LEON
== END ==
LOC: HO.CARD 07:47
PROVIDERS: Visit Provider Internal Medicine Cardiovascular Disease
DX: R06.00 Dyspnea, unspecified (principal)
CPT/HCPCS: 78452; 93017; A9500; J0280; J2785

== ENCOUNTER 2021-06-04 10:17 | Outpatient (REF) | payer MEDICARE, MEDICAID, SELFPAY ==
--- NOTE | ~2021-06-04 | CT_ITS ---
EXAMINATION: CT PELVIS WITHOUT CONTRAST CLINICAL INFORMATION: Inguinal hernia COMPARISON: None TECHNIQUE: Helical scanning was performed with submillimeter collimation through the pelvis. Sagittal and coronal multiplanar 2-D reconstructions were obtained. This CT examination was performed using dose optimization techniques as appropriate, variously including the following: *Automated exposure control *Adjustment of mA and/or kV according to patient size (this includes techniques or standardized protocols for targeted exams where dose is matched to indication/reason for exam; i.e. extremities or head) *Use of iterative reconstruction technique DLP: 738 mGy-cm FINDINGS: There is a small left inguinal hernia containing fat. There is fat in the right inguinal canal. There is a small umbilical hernia containing fat. There is left hydronephrosis versus peripelvic cysts. There is a 1.7 cm cyst in the lower pole the left kidney. There is diverticulosis of the colon. The appendix is normal appearing. The bladder and prostate gland are normal. No ascites or adenopathy is seen. Vascular structures are unremarkable. There is a right hip replacement. There is mild arthritis at the left hip joint. There is scoliosis and severe degenerative changes of the lower lumbar spine. There is a battery and lead seen in the left buttock. CT/CT pelvis wo con IMPRESSION: Small left inguinal hernia containing fat. Fat in the right inguinal canal. Small umbilical hernia containing fat.
== END 2021-06-04 10:18 | disposition home or self-care (01) ==
LOC: HO.CT 10:17
PROVIDERS: Visit Provider Hospitalist
DX: K40.90 Unilateral inguinal hernia, without obstruction or gangrene, not specified as recurrent (principal)
CPT/HCPCS: 72192

== ENCOUNTER 2021-06-16 08:00 | Outpatient (REF) | payer MEDICARE, MEDICAID, SELFPAY ==
[2021-06-16 12:25] LABS: Cholesterol 144 mg/dL; HDL Cholesterol 10 mg/dL; LDL Cholesterol Calculated 67 mg/dl; Triglycerides 337 mg/dL
[2021-06-16 12:30] LABS: Estimated Average Glucose 108 mg/dL; Hemoglobin A1c % 5.4 %
[2021-06-16 12:45] LABS: TSH reflex Free T4 2.67 uIU/mL (0.32-4.0)
[2021-06-16 13:54] LABS: Creatinine Urine 82.38 mg/dL; Microalbum/Creatinine Ratio Ur 20.6 ug/mg cr
== END 2021-06-16 08:01 | disposition home or self-care (01) ==
LOC: HO.HMGCLDS 08:00
PROVIDERS: PCP Internal Medicine; Visit Provider Internal Medicine
DX: R73.9 Hyperglycemia, unspecified (principal); E78.5 Hyperlipidemia, unspecified; G70.00 Myasthenia gravis without (acute) exacerbation; I10 Essential (primary) hypertension; E03.9 Hypothyroidism, unspecified
CPT/HCPCS: 36415; 80061; 82043; 83036; 84443

== ENCOUNTER → 2021-06-22 09:30 | Outpatient (BNVA) | payer MEDICARE, MEDICAID, SELFPAY | PROVIDERS: PCP Internal Medicine; Visit Provider Internal Medicine | DX: J44.9 Chronic obstructive pulmonary disease, unspecified (principal); G70.00 Myasthenia gravis without (acute) exacerbation; R06.00 Dyspnea, unspecified; R91.1 Solitary pulmonary nodule | CPT/HCPCS: 99212 ==

== ENCOUNTER → 2021-06-24 08:43 | Outpatient (BNVA) | payer MEDICARE, MEDICAID, SELFPAY | PROVIDERS: PCP Internal Medicine; Visit Provider Urology | DX: N40.1 Benign prostatic hyperplasia with lower urinary tract symptoms (principal) | CPT/HCPCS: 51798; 99212 ==

== ENCOUNTER → 2021-07-07 13:36 | Outpatient (BNVA) | payer MEDICARE, MEDICAID, SELFPAY | PROVIDERS: PCP Internal Medicine; Referring Provider Internal Medicine; Visit Provider Surgery | DX: K40.90 Unilateral inguinal hernia, without obstruction or gangrene, not specified as recurrent (principal); J44.9 Chronic obstructive pulmonary disease, unspecified; G89.4 Chronic pain syndrome; M51.36 Other intervertebral disc degeneration, lumbar region; I10 Essential (primary) hypertension; E78.5 Hyperlipidemia, unspecified; Z96.82 Presence of neurostimulator; Z79.52 Long term (current) use of systemic steroids; Z79.899 Other long term (current) drug therapy | CPT/HCPCS: 99202 ==

== ENCOUNTER → 2021-07-14 09:10 | Outpatient (BNVA) | payer MEDICARE, MEDICAID, SELFPAY | PROVIDERS: PCP Internal Medicine; Referring Provider Internal Medicine; Visit Provider Internal Medicine Cardiovascular Disease | DX: Z01.810 Encounter for preprocedural cardiovascular examination (principal); I10 Essential (primary) hypertension; R06.00 Dyspnea, unspecified | CPT/HCPCS: 99212 ==

== ENCOUNTER 2021-07-15 08:23 | Outpatient (REF) | payer MEDICARE, MEDICAID, SELFPAY ==
--- NOTE | ~2021-07-15 | CT_ITS ---
EXAMINATION: CT CHEST WITHOUT CONTRAST CLINICAL INFORMATION: Solitary pulmonary nodule COMPARISON: 12/30/2020 TECHNIQUE: Multidetector volumetric CT imaging of the chest was done. Axial MIP volume rendering provided. Sagittal and coronal reformatted images were obtained. This CT examination was performed using dose optimization techniques as appropriate, variously including the following: *Automated exposure control *Adjustment of mA and/or kV according to patient size (this includes techniques or standardized protocols for targeted exams where dose is matched to indication/reason for exam; i.e. extremities or head) *Use of iterative reconstruction technique DLP: 230 mGy-cm FINDINGS: LUNGS: A 5 mm basilar left lower lobe nodule on image [id number] is unchanged from prior. Redemonstrated right middle lobe nodule on image [id number] measuring up to 7 mm, without significant change from prior. Redemonstrated right lower lobe suture line. Interlobular septal thickening is noted, consistent with mild interstitial edema. MEDIASTINUM: The visualized thyroid gland is unremarkable. There are subcentimeter mediastinal lymph nodes within the range of normal variation. Cardiac size is within normal limits; trace pericardial effusion, increased from prior. Coronary artery calcifications are present. PLEURA: Small right pleural effusion, new from prior. AXILLA: No lymphadenopathy. UPPER ABDOMEN: Unremarkable. OSSEOUS STRUCTURES: Redemonstrated postoperative changes of the right ribs. There are changes of diffuse idiopathic skeletal hyperostosis in the spine. CT/CT chest wo con IMPRESSION: 1. Mild interstitial edema. Small right pleural effusion. 2. Trace pericardial fluid, increased from prior. 3. Stable appearance of previously identified lung nodules. 4. Coronary artery calcifications. Correlation with cardiac risk factors is recommended.
== END 2021-07-15 08:24 | disposition home or self-care (01) ==
LOC: HO.CT 08:23
PROVIDERS: Visit Provider Surgery
DX: R91.1 Solitary pulmonary nodule (principal)
CPT/HCPCS: 71250

== ENCOUNTER → 2021-07-23 08:57 | Outpatient (BNVA) | payer MEDICARE, MEDICAID, SELFPAY | PROVIDERS: PCP Internal Medicine; Visit Provider Surgery | DX: R91.8 Other nonspecific abnormal finding of lung field (principal); Z79.899 Other long term (current) drug therapy; Z90.2 Acquired absence of lung [part of] | CPT/HCPCS: 99212 ==

== ENCOUNTER 2021-09-20 11:00 | Outpatient (REF) | payer MEDICARE, MEDICAID, SELFPAY ==
[2021-09-20 13:16] LABS: Free T4 (Free Thyroxine) 1.03 ng/dL (0.71-1.85); Thyroid Stimulating Hormone 1.43 uIU/mL (0.32-4.0)
== END 2021-09-20 11:01 | disposition home or self-care (01) ==
LOC: HO.LAB 11:00
PROVIDERS: PCP Internal Medicine; Visit Provider Internal Medicine
DX: E03.9 Hypothyroidism, unspecified (principal); E04.2 Nontoxic multinodular goiter
CPT/HCPCS: 36415; 84439; 84443; 99212

== ENCOUNTER → 2021-10-18 09:24 | Outpatient (BNVA) | payer MEDICARE, MEDICAID, SELFPAY | PROVIDERS: PCP Internal Medicine; Referring Provider Internal Medicine; Visit Provider Internal Medicine Cardiovascular Disease | DX: Z01.810 Encounter for preprocedural cardiovascular examination (principal); I45.2 Bifascicular block; R06.00 Dyspnea, unspecified; J44.9 Chronic obstructive pulmonary disease, unspecified | CPT/HCPCS: 93005; 99212 ==

== ENCOUNTER → 2021-10-25 09:05 | Outpatient (BNVA) | payer MEDICARE, MEDICAID, SELFPAY | PROVIDERS: PCP Internal Medicine; Visit Provider Internal Medicine | DX: Z01.818 Encounter for other preprocedural examination (principal); J44.9 Chronic obstructive pulmonary disease, unspecified; R06.00 Dyspnea, unspecified; G70.00 Myasthenia gravis without (acute) exacerbation | CPT/HCPCS: 99212 ==

== ENCOUNTER 2021-10-26 08:57 | Day surgery (SDC) | payer MEDICARE, MEDICAID, SELFPAY ==
[2021-10-18 19:15] VITALS: BMI 32.5
--- NOTE | 2021-10-25 11:54 | P.CONAN_ITS ---
Documented by User: Alexandria Cox NP 10/25/21 12:43 HPI - Anesthesia Eval Consult details Narrative: 71yo M for Left Hernia Repair Inguinal with Mesh Pulmonary cleared FROM PULMONARY POINT OF VIEW HE IS STABLE AND, FIT TO UNDERGO SURGERY, WITH AVERAGE SURGICAL RISK. POSTOPERATIVELY SHOULD BE WATCH FOR ANY RESPIRATORY DISTRESS OR HYPOXEMIA. Cardiac cleared at intermediate risk Myesthenia Gravis - daily prednisone, pyridostigmine (to hold AM preop per Dr Ott) PMFSH Active Problems Active Problems: All Active Problems (Updated 10/25/21 @ 10:11 by David jara MD) BPH loc w urin obs/LUTS (Acute) Nocturia associated with benign prostatic hyperplasia (Acute) Incomplete emptying of bladder due to benign prostatic hyperplasia (Acute) Bifascicular block (Acute) JULIEN (dyspnea on exertion) (Acute) Preop cardiovascular exam (Acute) Pulmonary nodule (Acute) COPD (chronic obstructive pulmonary disease) (Acute) Vasovagal episode (Acute) Left inguinal hernia (Acute) GERD (gastroesophageal reflux disease) (Acute) Chronic pain syndrome (Acute) Spondylosis of lumbosacral region (Acute) Disc degeneration, lumbar (Acute) Hyperglycemia (Acute) Abdominal pain (Acute) Myasthenia gravis (Acute) Hyperlipidemia (Acute) Hypertension (Acute) Toe ulcer (Acute) Iatrogenic adrenal insufficiency (Acute) Multinodular thyroid (Acute) Hypothyroid (Acute) COPD (chronic obstructive pulmonary disease) (Acute) Past Medical History Medical History Abdominal pain Arthritis Back pain Chronic pain syndrome COPD (chronic obstructive pulmonary disease) COPD (chronic obstructive pulmonary disease) Degenerative disc disease, lumbar Diastolic dysfunction Disc degeneration, lumbar JULIEN (dyspnea on exertion) Emphysema of lung GERD (gastroesophageal reflux disease) Hyperglycemia Hyperlipidemia Hypertension Hypothyroid Iatrogenic adrenal insufficiency Iron deficiency anemia Left inguinal hernia Leg cramps Multinodular thyroid Myasthenia gravis Osteoarthritis Preop cardiovascular exam Pulmonary nodule 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 Mother No problems noted. Family history of problems with anesthesia: No Surgical History Surgical History History of colonoscopy History of hydrocelectomy History of lung surgery (~11/2020) History of total right hip arthroplasty (~02/2018) Hx of tonsillectomy S/P insertion of spinal cord stimulator History of Problems with Anesthesia: No Social History Social History Housing: House Are you a primary career transition specialist to a significant other at home: No Do you presently have visiting nurse or other home services: No Patient Tobacco Use Status: Never used Tobacco e-Cigarette/Vaping Use: Never Used Second Hand Smoke Exposure: No Use of substances other than those prescribed or required for medical reasons: No Are you DNR?: No Advance Directives: No Advance Directives Information Provided: No Advance Directives on File: No Recently lost weight without trying: No Nutrition Risks: No Nutritional Risk Current occupational status: retired Current occupation: right handed Meds Allergies Allergy/AdvReac Type Severity Reaction Status Date / Time No Known Allergies Allergy Verified 10/25/21 09:24 [No Known Allergies*] Home Medications Medication Instructions Recorded Confirmed Last Taken Type clotrimazole-betamethasone 1 1 applic TOPICAL DAILY 08/18/20 10/18/21 Unknown History %-0.05 % topical cream acetaminophen 325 mg tablet 650 mg PO Q6H PRN 08/28/20 10/18/21 02/19/21 History (Tylenol) multivitamin 1 cap PO DAILY 08/28/20 10/18/21 Unknown History pyridostigmine bromide 60 mg tablet 60 mg PO TID tab 01/27/21 10/18/21 03/26/21 History prednisone 10 mg tablet 7.5 mg PO DAILY tab 07/14/21 10/18/21 Unknown History lisinopril 5 mg tablet 7.5 mg PO DAILY tab 09/20/21 10/18/21 Unknown History docosahexaenoic acid (dha)-epa 1 cap PO DAILY 10/18/21 10/18/21 Unknown History capsule omeprazole 20 mg capsule,delayed 20 mg PO DAILY 10/18/21 10/18/21 Unknown History release Exam Exam Date and Time: October 25, 2021 1154 Height,Weight and Vital Signs: Height 6 ft Weight 108.862 kg Narrative Narrative: EKG 10/2021 NSR 78/min, RBBB, LPFB, inferior T-wave inversions, cannot rule out septal infarct, QTc 460 msec. NM cardiolite stress test 04/2021 Impression: ? 1.? Myocardial perfusion imaging study shows no evidence of any ischemia or infarction. Likely normal perfusion. 2.? Gated LVEF is 48% during stress and 47% during rest. Correlate with echocardiogram. 3. Transient ischemic dilatation not present. ? EKG component of the test reported separately. (nondiagnostc) ECHO 03/2021 Conclusions: - 1. Normal LV systolic function with moderate LVH with impaired relaxation filling pattern ? 2. Moderately dilated left atrium? 3. Normal cardiac valvular Doppler ? 4. Normal RV systolic pressure ? 5. No pericardial effusion ? ?? YOLANDA 30 day 03/2021 CONCLUSION:? Cardiac event monitor is remarkable for: 1. Baseline normal sinus rhythm with isolated PVCs. 2. No significant tachy or bradyarrhythmias. 3. The patient reported events correlated with sinus rhythm. Assessment and Plan Assessment Anesthesia Assessment: Chart Reviewed Final Anesthetic Review Family History of Problems with Anesthesia: No History of Problems with Anesthesia: No Documented by User: Nayeli Bowden MD 10/26/21 10:29 [facility]LY [facility], [facility] Past Medical History Medical History Abdominal pain Arthritis Back pain Chronic pain syndrome COPD (chronic obstructive pulmonary disease) COPD (chronic obstructive pulmonary disease) Degenerative disc disease, lumbar Diastolic dysfunction Disc degeneration, lumbar UJLIEN (dyspnea on exertion) Emphysema of lung GERD (gastroesophageal reflux disease) Hyperglycemia Hyperlipidemia Hypertension Hypothyroid Iatrogenic adrenal insufficiency Iron deficiency anemia Left inguinal hernia Leg cramps Multinodular thyroid Myasthenia gravis Osteoarthritis Preop cardiovascular exam Pulmonary nodule 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 Mother No problems noted. Surgical History Surgical History History of colonoscopy History of hydrocelectomy History of lung surgery (~11/2020) History of total right hip arthroplasty (~02/2018) Hx of tonsillectomy S/P insertion of spinal cord stimulator Social History Social History Housing: House Are you a primary career transition specialist to a significant other at home: No Do you presently have visiting nurse or other home services: No Patient Tobacco Use Status: Never used Tobacco e-Cigarette/Vaping Use: Never Used Second Hand Smoke Exposure: No Use of substances other than those prescribed or required for medical reasons: No Are you DNR?: No Advance Directives: No Advance Directives Information Provided: No Advance Directives on File: No Recently lost weight without trying: No Nutrition Risks: No Nutritional Risk Current occupational status: retired Current occupation: right handed Meds Allergies Allergy/AdvReac Type Severity Reaction Status Date / Time No Known Allergies Allergy Verified 10/25/21 09:24 [No Known Allergies*] Home Medications Medication Instructions Recorded Confirmed Last Taken Type clotrimazole-betamethasone 1 1 applic TOPICAL DAILY 08/18/20 10/18/21 Unknown History %-0.05 % topical cream acetaminophen 325 mg tablet 650 mg PO Q6H PRN 08/28/20 10/18/21 02/19/21 History (Tylenol) multivitamin 1 cap PO DAILY 08/28/20 10/18/21 Unknown History pyridostigmine bromide 60 mg tablet 60 mg PO TID tab 01/27/21 10/18/21 03/26/21 History prednisone 10 mg tablet 7.5 mg PO DAILY tab 07/14/21 10/18/21 Unknown History lisinopril 5 mg tablet 7.5 mg PO DAILY tab 09/20/21 10/18/21 Unknown History docosahexaenoic acid (dha)-epa 1 cap PO DAILY 10/18/21 10/18/21 Unknown History capsule omeprazole 20 mg capsule,delayed 20 mg PO DAILY 10/18/21 10/18/21 Unknown History release Exam Airway Mallampati Class: III TM Dist: >3cm Neck ROM: Full Heart: RRR Lungs: CTA Assessment and Plan Final Anesthetic Review NPO: Yes ASA Class: III Final Preanesthetic Review: No Changes in Pt Med Stat, Meds/Allgs Chart Re viewed, Consent Obtained/Reviewed and Anes Risks/Benef Reviewed Patient Risk: Intermediate Procedure Risk: Low Anesthetic Plan Anesthetic Plan: GA Disposition: Standard PACU
[2021-10-26] VITALS (15 sets, daily range): BP systolic 103–124; BP diastolic 54–67; PULSE 61–72; RESP 13–17; TEMP 36.4–37.2; O2SAT 94–96
[2021-10-26 09:44] LABS: Hemoglobin 14.4 g/dl (14.0-18.0); Mean Corpuscular Hemoglobin 27.2 pg (27.0-33.0); Mean Corpuscular Volume 85.1 fL (80.0-98.0); Mean Platelet Volume 10.2 fL (9.4-12.4); Platelet Count 231 X10*3/uL (160-400); Red Blood Count 5.29 X10*6/uL (4.60-5.80); Red Cell Distribution Width 15.3 % (11.0-16.0); White Blood Count 10.7 X10*3/uL (4.8-10.8)
[2021-10-26 10:06] LABS: Anion Gap 12 (12-20); Blood Urea Nitrogen 21 mg/dL (9-16); Calcium 9.1 mg/dL (8.4-10.2); Carbon Dioxide 25 mmol/L (22-29); Chloride 107 mmol/L (96-108); Creatinine Clr Calc Pharmacy 99.5; Estimated Glomerular Filt Rate > 60; Glucose Fasting 93 mg/dL (60-99); Potassium 4.4 mmol/L (3.3-5.1); Sodium 140 mmol/L (135-145)
[2021-10-26] MEDS: Lactated Ringers 1,000 ML 50 ML IVCONT (10:39)
--- NOTE | 2021-10-26 11:26 | MHC.SHP ---
Pre-Procedural Eval Section A Date of Service: 10/26/21 Section B Chief Complaint: Left Inguinal Hernia Details of Present Illness: He has the tubal left inguinal hernia and he wants to proceed with repair in view of discomfort Relevant Family History (Specify if Yes): No Relevant Social History: None Present Medications: see Short Stay Collaborative assessment Medical History: Significant History ( COPD, history of what resection of the lung, myasthenia gravis, hypothyroidism, BPH, bifascicular block) History of Previous Operations: Relevant previous surgery/procedure and date(s) Allergies: Allergies Allergy/AdvReac Type Severity Reaction Status Date / Time No Known Allergies Allergy Verified 10/25/21 09:24 [No Known Allergies*] Review of Systems Sugical H&P ROS: Negative: Constitution, Cardiovascular, Respiratory, Neurological, Psychiatric, Hem-Onc, Allergic/Immunologic, Gastrointestinal, Genitourinary, Musculoskeletal, Integumentary, Endocrine and Eyes/Ears/Nose/Throat Exam Surgical H&P Exam: Normal: HEENT, Normal: Heart, Normal: Lungs, Normal: Extremities, Normal: Skin and Normal: Neurological and Significant Findings: Abdomen ( left inguinal hernia) Plan Diagnosis/Plan: Unchanged I have reviewed the history and physical and performed a pertinent physical examination on my patient. No changes have occurred unless specified.
--- NOTE | 2021-10-26 12:27 | W.PM.OPN ---
Operative Note Operative Note Date of Service: 10/26/21 Narrative: Preop diagnosis: left Inguinal,hernia Postop diagnosis: Left inguinal hernia, indirect Procedure: Repair of left inguinal hernia with mesh Surgeon: Ludwin Romero MD rehabilitation assistant: SWATI Staples The patient is a 71-year-old male note of a reducible mass on the left groin consistent with a left inguinal hernia. In view of symptoms, he wanted to proceed with repair. He understood the technique of repair with mesh. He was aware of the risks, benefits, and alternatives . He was brought to the operating room and placed supine on the table under general anesthesia via laryngeal mask airway. The left groin was prepped and draped in the usual sterile fashion. A surgical time-out was done. The patient received cefazolin 2 g IV preoperatively. I infiltrated the planned line of incision with lidocaine 1%. I made a short incision on the skin near the inguinal clinically he is along an imaginary line from the superior iliac spine to the pubic ramus using blade 15. This was carried down through the full-thickness of the skin and subcutaneous fat with electrocautery until was able to reach the renal oblique aponeurosis. I bluntly dissected the external oblique aponeurosis using gauze to define the external ring. Once this was identified, opened up the roof of the inguinal canal by dividing the overlying external oblique aponeurosis with electrocautery. I applied hemostats on both edges of the divided aponeurosis. I bluntly dissected the underside with a finger to create a pocket for the mesh. I proceeded bluntly dissect the spermatic cord and its contents using my index finger until I was able to pass a Marielena drain around this. This Marielena drain was used for traction. I identified the vas deferens and accompanying vessels. I saw fat containing hernia anteromedial to this. I carefully dissected this off of the rest of the cord contents until was able to completely reduce this through the internal ring. This was therefore an indirect hernia. I reinforced this with a plug. The plug was secured with Prolene 2-0 sutures to the shelving edge of the inguinal laterally, and the internal oblique superiorly medially Prolene using the inner leaves of the plug . I reinforced the floor of the canal with a keyhole mesh. The tails of the mesh were passed around the cord at the level of the internal ring and were secured together using Prolene 2 sutures. I flattened the mesh on the floor of the canal. I secured this mesh with Prolene to suture to shelving edge of the inguinal ligament laterally, the internal oblique superiorly and medially as well as the pubic ramus inferomedially. I observed for hemostasis. Once hemostasis was ensured I proceeded to then remove the [place] drain. I closed the divided external oblique aponeurosis with a running Dexon 2-0 stitch to re-create the external ring. The subcutaneous layer was reapposed with Dexon 3-0 interrupted sutures. Skin closure was achieved with Dexon 4-0 subcuticular running stitch. Steri-Strips and dressings were applied. The incision was infiltrated with Marcaine 0.5% for postop analgesia. The procedure was then completed. The patient tolerated the procedure well. There were no complications noted. Initial and finalcounts of sponges and instruments were correct. Estimated blood loss was about 20 cc . The patient was extubated without difficulty and transferred to the recovery room with stable vital signs.
--- NOTE | 2021-10-26 12:35 | P.BOP_ITS ---
Brief Operative Note Date of Service: 10/26/21 Pre-op diagnosis: left inguinal hernia Post-op diagnosis: same Procedure: repair of left inguinal hernia Implants: mesh Surgeon: Ludwin Romero MD Anesthesia: GLMA Was an Facility Service Associate used for this Procedure?: No Facility Service Associate: Lelo Staples Estimated blood loss (mL): 25 Pathology: none sent Condition: stable Disposition: PACU
[2021-10-26] MEDS: oxyCODONE HCl Immed Release 5 MG TABLET PO (13:00)
[2021-10-26] MEDS: fentaNYL citrate/PF 100 MCG/2 ML VIAL 25 MCG IVPUSH ×4 (13:01→13:25)
[2021-10-26] MEDS: HYDROmorphone HCl 0.5 MG/0.5 ML SYRINGE 0.25 MG IVPUSH ×2 (13:30→13:38)
== END 2021-10-26 14:45 | disposition home or self-care (01) ==
PROVIDERS: Nurse Practitioner; PCP Internal Medicine; Visit Provider Surgery
PROC: (CPT 49505; principal; 2021-10-26 11:10)
DX: K40.90 Unilateral inguinal hernia, without obstruction or gangrene, not specified as recurrent (principal); G89.29 Other chronic pain; M51.36 Other intervertebral disc degeneration, lumbar region; J44.9 Chronic obstructive pulmonary disease, unspecified; I45.2 Bifascicular block; I45.10 Unspecified right bundle-branch block; Z79.899 Other long term (current) drug therapy; Z79.52 Long term (current) use of systemic steroids; Z79.51 Long term (current) use of inhaled steroids
CPT/HCPCS: 49505; 36415; 80048; 85027; C1781; J0131; J0690; J1100; J1170; J2250; J2370; J2405; J3010

== ENCOUNTER → 2021-11-08 09:10 | Outpatient (BNVA) | payer MEDICARE, MEDICAID, SELFPAY | PROVIDERS: PCP Internal Medicine; Referring Provider Internal Medicine; Visit Provider Surgery | DX: Z48.815 Encounter for surgical aftercare following surgery on the digestive system (principal); Z87.19 Personal history of other diseases of the digestive system | CPT/HCPCS: 99212 ==

== ENCOUNTER 2021-12-07 08:43 | Outpatient (REF) | payer MEDICARE, MEDICAID, SELFPAY ==
--- NOTE | ~2021-12-07 | US_ITS ---
EXAMINATION: US THYROID CLINICAL INFORMATION: Nontoxic multinodular goiter. COMPARISON: Thyroid ultrasound 05/18/2020 and 06/13/2019. Ultrasound-guided thyroid biopsy 11/29/2018. TECHNIQUE: Linear transducer grayscale and color Doppler examination with attention to the region of the thyroid. FINDINGS: SIZE: Measurements of the thyroid lobes and nodules are given in sagittal, anteroposterior and transverse dimensions respectively. Right Thyroid Lobe: 4.2 x 1.6 x 1.9 cm, volume 6.7 mL. Previously 4.8 x 2.0 x 1.9 cm, volume 9.0 mL. Parenchyma: The gland echotexture is heterogeneous. Thyroid vascularity is normal. Left Thyroid Lobe: 3.5 x 1.5 x 1.8 cm, volume 5.0 mL. Previously 4.1 x 1.7 x 1.8 cm, volume 6.3 mL. Parenchyma: The gland echotexture is heterogeneous. Thyroid vascularity is normal. Isthmus: 0.4 cm in maximum AP dimension. Previously 0.5 cm. Estimated total number of nodules greater than or equal to 1 cm: 1. Bilingual [employer] nodules are described as follows: 1. Location: Left mid pole. Size: 1.2 x 1.0 x 1.0 cm, volume 0.60 mL. Previously: 1.5 x 1.3 x 1.1 cm, volume 1.12 mL. Nodule characteristics: Composition: Solid (2). Echogenicity: Isoechoic (1). Shape: Taller than wide (3). Margins: Smooth (0). Echogenic Foci: Macrocalcifications (1). ACR TI-RADS total points: 7 ACR TI-RADS category: 5 Significant change in size (>/= 20% in 2 dimensions and minimal increase of 2 mm or 50% or greater increase in volume): Change in features: Change in ACR TI-RADS risk category: NODES: No lymphadenopathy is seen in the tissue surrounding the thyroid gland. US/US thyroid IMPRESSION: Heterogeneous thyroid gland decrease in size from previous exam. 1.2 x 1 x 1 cm left thyroid nodule with suspicious ultrasound features. Fine-needle aspiration recommended. Other previously identified nodules not appreciated. ACR TI-RADS RECOMMENDATION REFERENCE: Ultrasound-guided fine-needle aspiration, followup ultrasound, no further follow up. * TR1 (0 point) and TR 2 (2 points): No FNA or follow up * TR3 (3 points): FNA if more than or equal to 2.5 cm in maximum dimension, followup ultrasound in 1, 3 and 5 years if 1.5 to 2.4 cm in maximum dimension. * TR4 (4-6 points): FNA if more than or equal to 1.5 cm in maximum dimension, followup ultrasound in 1, 2, 3 and 5 years if 1 to 1.4 cm in maximum dimension. * TR5 (more than or equal to 7 points): FNA if more than or equal to 1 cm in maximum dimension, followup ultrasound every year for 5 years if 0.5 to 0.9 cm in maximum dimension. * TR3, TR4 or TR5 nodules that are below the size threshold for follow up receive no follow up.
== END 2021-12-07 08:44 | disposition home or self-care (01) ==
LOC: HO.US 08:43
PROVIDERS: Visit Provider Internal Medicine
DX: E04.2 Nontoxic multinodular goiter (principal)
CPT/HCPCS: 76536

== ENCOUNTER → 2021-12-30 09:03 | Outpatient (BNVA) | payer MEDICARE, MEDICAID, SELFPAY | PROVIDERS: PCP Internal Medicine; Visit Provider Urology | DX: N40.1 Benign prostatic hyperplasia with lower urinary tract symptoms (principal); N13.8 Other obstructive and reflux uropathy; N28.1 Cyst of kidney, acquired | CPT/HCPCS: 51798; 99212 ==

== ENCOUNTER → 2022-01-12 08:52 | Outpatient (BNVA) | payer MEDICARE, MEDICAID, SELFPAY | PROVIDERS: PCP Internal Medicine; Visit Provider Orthopaedic Surgery | DX: G56.01 Carpal tunnel syndrome, right upper limb (principal) | CPT/HCPCS: 99202 ==

== ENCOUNTER 2022-01-13 10:27 | Outpatient (REF) | payer MEDICARE, MEDICAID, SELFPAY ==
--- NOTE | ~2022-01-13 | US_ITS ---
EXAMINATION: US RETROPERITONEAL LIMITED (RENAL ONLY) CLINICAL INFORMATION: Cyst of kidney, acquired. COMPARISON: Pelvic CT 06/04/2021. X-ray abdomen 11/12/2020. Ultrasound kidneys and bladder 07/11/2018. TECHNIQUE: Real-time imaging of the kidneys. FINDINGS: RIGHT KIDNEY: 12.5 x 6.2 x 6.4 cm (SAG x AP x TRV). The kidney is normal in size, contour, and echogenicity. Renal cortical thickness is normal. No renal calculi or hydronephrosis. Midpole simple cyst measures 1.5 cm . Upper pole simple cyst measures 1.2 cm. LEFT KIDNEY: 11.7 x 6.2 x 5.5 cm (SAG x AP x TRV). The kidney is normal in size, contour, and echogenicity. Renal cortical thickness is normal. No renal calculi or hydronephrosis. Multiple parapelvic cysts are present. In addition there is a lateral midpole 2.4 cm cyst with thin internal septations. No Doppler vascularity. Adjacent to the left kidney there is possible small area of fluid. Cannot exclude a small hematoma. US/US renal BI IMPRESSION: Bilateral simple renal cysts for which no follow-up is recommended. On the left, there is abnormal echogenicity along the periphery of the kidney which could represent a small hematoma.
== END 2022-01-13 10:28 | disposition home or self-care (01) ==
LOC: HO.HMGCX 10:27
PROVIDERS: Visit Provider Urology
DX: N28.1 Cyst of kidney, acquired (principal)
CPT/HCPCS: 76775

== ENCOUNTER → 2022-01-26 08:58 | Outpatient (BNVA) | payer MEDICARE, MEDICAID, SELFPAY | PROVIDERS: PCP Internal Medicine; Visit Provider Urology | DX: N32.81 Overactive bladder (principal) | CPT/HCPCS: 52000; 99212 ==

== ENCOUNTER 2022-02-03 07:05 | Day surgery (SDC) | payer MEDICARE, MEDICAID, SELFPAY ==
[2022-02-03 07:49] VITALS: BMI 32.5
[2022-02-03 07:53] VITALS: BP 149/74; PULSE 69; RESP 18; TEMP 36.6; O2SAT 97
[2022-02-03 08:00] VITALS: BP 149/74; PULSE 69; RESP 18; TEMP 36.6; O2SAT 97
--- NOTE | 2022-02-03 08:34 | W.PM.OPN ---
Operative Note Operative Note Date of Service: 02/03/22 Narrative: Preop diagnosis: 1. Right Carpal tunnel syndrome Postop diagnosis: same Procedure: 1. Right Carpal tunnel release Surgeon: Catrina Collins MD Anesthesia: local block using 1% lidocaine with epinephrine Findings: Thickened transverse carpal ligament. EBL: Less than 5 mL Specimens: None Complications: None Disposition: Brought to recovery room in stable condition Plan: Follow-up for 10-14 days for wound check and suture removal Indications: The patient is 72 years old, with right carpal tunnel syndrome that has been unresponsive to nonoperative management. The risks and benefits of operative treatment including but not limited to risk of damage to blood vessels, nerves, tendons, infection, persistent pain, persistent symptoms, or possible need for additional surgery were discussed with the patient and the patient wishes to proceed with surgery. Procedure: Once consent was obtained a local block was performed using a combination of 1% lidocaine with epinephrine. The patient was then brought back to the operating suite and placed on the operative table in supine position. A tourniquet was applied to the proximal aspect of the right upper extremity and the limb was prepped and draped in a standard surgical fashion. Once assured that we had a good block, a 1.5 cm longitudinal incision was made centered over the carpal tunnel. The incision was made through the skin to the subcutaneous tissues using a #15 blade. Dissection was made down to the level of the transverse carpal ligament with care being taken to protect the palmar cutaneous nerve. Once the transverse carpal ligament was clearly visualized, a longitudinal incision was made in the transverse carpal ligament 1st using a #15 blade, then using tenotomy scissors under direct visualization. Care was taken to look for and protect the motor branch of the median nerve when seen in this area. Once satisfied with our carpal tunnel release the wound was copiously irrigated with normal saline and hemostasis was obtained with a brief period of local pressure. The skin edges were reapproximated with some 5.0 nylon suture material and a sterile dressing was applied. The patient appears to have tolerated the procedure well and with no complications. All digits were well vascularized at the conclusion of the case.
--- NOTE | 2022-02-03 09:54 | MHC.SHP ---
Pre-Procedural Eval Section A Date of Service: 02/03/22 The patient is an INPATIENT: No Changes since office visit: No Cold of Flu in the past 2 weeks, No New Medical Problems, No Changes in Medication and No Patient answered all questions The History & Physical has been completed within 30 days and I have reviewed it.: Yes Section B Chief Complaint: Carpal tunnel syndrome, right upper limb Allergies: Allergies Allergy/AdvReac Type Severity Reaction Status Date / Time No Known Allergies Allergy Verified 01/26/22 09:23 [No Known Allergies*] Plan I have reviewed the history and physical and performed a pertinent physical examination on my patient. No changes have occurred unless specified.
[2022-02-03 09:58] VITALS: BP 128/65; PULSE 60; RESP 16; TEMP 36.4; O2SAT 95
== END 2022-02-03 10:05 | disposition home or self-care (01) ==
PROVIDERS: PCP Internal Medicine; Visit Provider Orthopaedic Surgery
PROC: (CPT 64721; principal; 2022-02-03 10:10)
DX: G56.01 Carpal tunnel syndrome, right upper limb (principal); M79.641 Pain in right hand; G89.4 Chronic pain syndrome; R20.0 Anesthesia of skin; J44.9 Chronic obstructive pulmonary disease, unspecified; I10 Essential (primary) hypertension; R73.9 Hyperglycemia, unspecified; R55 Syncope and collapse; Z79.51 Long term (current) use of inhaled steroids; Z79.899 Other long term (current) drug therapy; Z96.641 Presence of right artificial hip joint; Z98.890 Other specified postprocedural states
CPT/HCPCS: 64721; J0171

== ENCOUNTER → 2022-02-07 09:11 | Outpatient (BNVA) | payer MEDICARE, MEDICAID, SELFPAY | PROVIDERS: PCP Internal Medicine; Referring Provider Internal Medicine; Visit Provider Internal Medicine Cardiovascular Disease | DX: I45.2 Bifascicular block (principal); R06.00 Dyspnea, unspecified; I11.9 Hypertensive heart disease without heart failure; J44.9 Chronic obstructive pulmonary disease, unspecified; G70.00 Myasthenia gravis without (acute) exacerbation | CPT/HCPCS: 99212 ==

== ENCOUNTER 2022-02-15 07:50 | Outpatient (REF) | payer MEDICARE, MEDICAID, SELFPAY ==
[2022-02-15 11:37] LABS: Hematocrit 47.2 % (42.0-52.0); Hemoglobin 15.2 g/dl (14.0-18.0); Mean Corpuscular HGB Conc 32.2 g/dl (31.0-36.0); Mean Corpuscular Volume 86.9 fL (80.0-98.0); Mean Platelet Volume 11.3 fL (9.4-12.4); Platelet Count 220 X10*3/uL (160-400); Red Blood Count 5.43 X10*6/uL (4.60-5.80); Red Cell Distribution Width 14.6 % (11.0-16.0); White Blood Count 8.7 X10*3/uL (4.8-10.8)
[2022-02-15 11:42] LABS: Estimated Average Glucose 114 mg/dL; Hemoglobin A1c % 5.6 %
[2022-02-15 11:59] LABS: Alanine Aminotransferase 27 U/L (0-40); Albumin Level 4.1 g/dL (3.5-5.0); Alkaline Phosphatase 95 U/L (39-117); Anion Gap 14 (12-20); Aspartate Amino Transferase 27 U/L (5-37); Bilirubin Total 0.6 mg/dL (0.0-1.0); Blood Urea Nitrogen 23 mg/dL (9-16); Calcium 9.3 mg/dL (8.4-10.2); Carbon Dioxide 21 mmol/L (22-29); Chloride 107 mmol/L (96-108); Cholesterol 130 mg/dL; Estimated Glomerular Filt Rate > 60; Glucose Fasting 96 mg/dL (60-99); HDL Cholesterol 38 mg/dL; LDL Cholesterol Calculated 63 mg/dl; Potassium 4.4 mmol/L (3.3-5.1); Sodium 138 mmol/L (135-145); Total Protein 6.9 g/dL (6.5-8.0); Triglycerides 148 mg/dL
[2022-02-15 12:02] LABS: TSH reflex Free T4 3.46 uIU/mL (0.32-4.0)
== END 2022-02-15 07:51 | disposition home or self-care (01) ==
LOC: HO.HMGCLDS 07:50
PROVIDERS: Visit Provider Internal Medicine
DX: I10 Essential (primary) hypertension (principal); R73.9 Hyperglycemia, unspecified; E03.9 Hypothyroidism, unspecified; E78.5 Hyperlipidemia, unspecified
CPT/HCPCS: 36415; 80053; 80061; 83036; 84443; 85027

== ENCOUNTER → 2022-02-16 13:41 | Outpatient (BNVA) | payer MEDICARE, MEDICAID, SELFPAY | PROVIDERS: PCP Internal Medicine; Visit Provider Orthopaedic Surgery | DX: Z47.89 Encounter for other orthopedic aftercare (principal); Z86.69 Personal history of other diseases of the nervous system and sense organs | CPT/HCPCS: 99212 ==

== ENCOUNTER 2022-03-24 12:24 | Outpatient (REF) | payer MEDICARE, MEDICAID, SELFPAY ==
--- NOTE | ~2022-03-24 | XR_ITS ---
EXAMINATION: XR HIP, LEFT CLINICAL INFORMATION: Pain left hip. COMPARISON: None TECHNIQUE: Two views of the left hip. 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 The left hip joint space is maintained normal. SI joints are symmetrical and normal. No visible acute fracture or dislocation seen. There is degenerative disc changes L3-L4, L4-L5 and L5/S1 disc levels. There is no visible acute fracture, dislocation or subluxation seen. There is a posterior epidural electrodes with the generator overlying the left pelvis. XR/XR hip LT w PEL1V IMPRESSION: Total right hip prosthesis in satisfactory alignment. No periprosthetic loosening or fracture seen. The left hip joint space is unremarkable.
== END 2022-03-24 12:25 | disposition home or self-care (01) ==
LOC: HO.HOSX 12:24
PROVIDERS: PCP Internal Medicine; Visit Provider Physician Assistant
DX: M70.62 Trochanteric bursitis, left hip (principal)
CPT/HCPCS: 20610; 73502; 99202; J1040

== ENCOUNTER → 2022-03-29 08:26 | Outpatient (BNVA) | payer MEDICARE, MEDICAID, SELFPAY | PROVIDERS: PCP Internal Medicine; Visit Provider Urology | DX: N40.1 Benign prostatic hyperplasia with lower urinary tract symptoms (principal); N32.81 Overactive bladder | CPT/HCPCS: 99212 ==

== ENCOUNTER → 2022-04-21 09:26 | Outpatient (BNVA) | payer MEDICARE, MEDICAID, SELFPAY | PROVIDERS: PCP Internal Medicine; Visit Provider Internal Medicine | DX: J44.9 Chronic obstructive pulmonary disease, unspecified (principal); R91.1 Solitary pulmonary nodule; R06.00 Dyspnea, unspecified; Z79.899 Other long term (current) drug therapy | CPT/HCPCS: 99212 ==

== ENCOUNTER → 2022-05-12 08:39 | Outpatient (BNVA) | payer MEDICARE, MEDICAID, SELFPAY | PROVIDERS: PCP Internal Medicine; Visit Provider Urology | DX: N32.81 Overactive bladder (principal); N39.41 Urge incontinence; R35.1 Nocturia; N28.1 Cyst of kidney, acquired | CPT/HCPCS: Q3014 ==

== ENCOUNTER → 2022-05-16 09:04 | Outpatient (BNVA) | payer MEDICARE, MEDICAID, SELFPAY | PROVIDERS: PCP Internal Medicine; Referring Provider Internal Medicine; Visit Provider Internal Medicine Cardiovascular Disease | DX: R06.00 Dyspnea, unspecified (principal) | CPT/HCPCS: 93005; 99212 ==

== ENCOUNTER → 2022-07-15 08:54 | Outpatient (BNVA) | payer MEDICARE, MEDICAID, SELFPAY | PROVIDERS: PCP Internal Medicine; Visit Provider Urology | DX: R35.1 Nocturia (principal); N32.81 Overactive bladder; Z79.899 Other long term (current) drug therapy | CPT/HCPCS: 99212; Q3014 ==

== ENCOUNTER 2022-08-01 09:13 | Outpatient (REF) | payer MEDICARE, MEDICAID, SELFPAY ==
--- NOTE | ~2022-08-01 | US_ITS ---
EXAMINATION: US THYROID CLINICAL INFORMATION: Nontoxic multinodular goiter. COMPARISON: Thyroid ultrasound 12/07/2021 and 05/18/2020. Ultrasound-guided thyroid biopsy 11/29/2018. TECHNIQUE: Linear transducer grayscale and color Doppler examination with attention to the region of the thyroid. FINDINGS: SIZE: Measurements of the thyroid lobes and nodules are given in sagittal, anteroposterior and transverse dimensions respectively. Right Thyroid Lobe: 4.4 x 1.7 x 1.9 cm, volume 7.4 mL. Previously 4.2 x 1.6 x 1.9 cm, volume 6.7 mL. Parenchyma: The gland echotexture is homogeneous. Thyroid vascularity is normal. Left Thyroid Lobe: 4.0 x 1.5 x 1.4 cm, volume 4.4 mL. Previously 3.5 x 1.5 x 1.8 cm, volume 5.0 mL. Parenchyma: The gland echotexture is homogeneous. Thyroid vascularity is normal. Isthmus: 0.3 cm in maximum AP dimension. Previously 0.4 cm. Estimated total number of nodules greater than or equal to 1 cm: 1. [employer] nodules are described as follows: 1. Location: Left mid pole. Size: 1.1 x 0.7 x 0.8 cm, volume 0.365 mL. Previously: 1.2 x 1.0 x 1.0 cm, volume 0.60 mL. Nodule characteristics: Composition: Solid (2). Echogenicity: Isoechoic (1). Shape: Taller than wide (3). Margins: Smooth (0). Echogenic Foci: Macrocalcifications (1). ACR TI-RADS total points: 7 Previous: 7 ACR TI-RADS category: 5 Previous: 5 Significant change in size (>/= 20% in 2 dimensions and minimal increase of 2 mm or 50% or greater increase in volume): No Change in features: No Change in ACR TI-RADS risk category: No 2. Location: Right upper pole. Size: 0.6 x 0.7 x 0.6 cm, volume 0.130 mL. Previously: 0.8 x 0.8 x 0.8 cm, volume 0.278 mL (May 2020). Nodule characteristics: Composition: Solid (2). Echogenicity: Isoechoic (1). Shape: Not taller than wide (0). Margins: Smooth (0). Echogenic Foci: None (0). ACR TI-RADS total points: 3 ACR TI-RADS category: 3 NODES: No lymphadenopathy is seen in the tissue surrounding the thyroid gland. US/US thyroid IMPRESSION: A 1.1 cm TR 5 left thyroid nodule slightly decreased in size. This was previously sampled in 2019, recommend correlation with prior pathology. A 0.7 cm TR 3 right thyroid nodule does not meet criteria for follow-up. ACR TI-RADS RECOMMENDATION REFERENCE: Ultrasound-guided fine-needle aspiration, followup ultrasound, no further follow up. * TR1 (0 point) and TR 2 (2 points): No FNA or follow up * TR3 (3 points): FNA if more than or equal to 2.5 cm in maximum dimension, followup ultrasound in 1, 3 and 5 years if 1.5 to 2.4 cm in maximum dimension. * TR4 (4-6 points): FNA if more than or equal to 1.5 cm in maximum dimension, followup ultrasound in 1, 2, 3 and 5 years if 1 to 1.4 cm in maximum dimension. * TR5 (more than or equal to 7 points): FNA if more than or equal to 1 cm in maximum dimension, followup ultrasound every year for 5 years if 0.5 to 0.9 cm in maximum dimension. * TR3, TR4 or TR5 nodules that are below the size threshold for follow up receive no follow up.
== END 2022-08-01 09:14 | disposition home or self-care (01) ==
LOC: HO.US 09:13
PROVIDERS: Visit Provider Internal Medicine
DX: E04.2 Nontoxic multinodular goiter (principal)
CPT/HCPCS: 76536

== ENCOUNTER → 2022-08-23 08:43 | Outpatient (BNVA) | payer MEDICARE, MEDICAID, SELFPAY | PROVIDERS: PCP Internal Medicine; Visit Provider Orthopaedic Surgery | DX: G56.02 Carpal tunnel syndrome, left upper limb (principal); Z98.890 Other specified postprocedural states | CPT/HCPCS: 99212 ==

== ENCOUNTER → 2022-09-01 09:04 | Outpatient (BNVA) | payer MEDICARE, MEDICAID, SELFPAY | PROVIDERS: PCP Internal Medicine; Referring Provider Internal Medicine; Visit Provider Internal Medicine Cardiovascular Disease | DX: I10 Essential (primary) hypertension (principal); R06.00 Dyspnea, unspecified | CPT/HCPCS: 99212 ==

== ENCOUNTER 2022-09-15 11:49 | Outpatient (REF) | payer MEDICARE, MEDICAID, SELFPAY ==
[2022-09-15 14:13] LABS: Anion Gap 18 (12-20); Blood Urea Nitrogen 22 mg/dL (9-16); Calcium 9.2 mg/dL (8.4-10.2); Carbon Dioxide 21 mmol/L (22-29); Chloride 104 mmol/L (96-108); Estimated Glomerular Filt Rate > 60; Glucose Random 96 mg/dL (60-115); Potassium 4.7 mmol/L (3.3-5.1); Sodium 138 mmol/L (135-145)
[2022-09-15 14:36] LABS: Thyroid Stimulating Hormone 3.57 uIU/mL (0.32-4.0)
[2022-09-15 14:37] LABS: Free T4 (Free Thyroxine) 0.99 ng/dL (0.71-1.85)
== END 2022-09-15 11:50 | disposition home or self-care (01) ==
LOC: HO.HMGCLDS 11:49
PROVIDERS: Absent Provider Internal Medicine Cardiovascular Disease; PCP Internal Medicine; Visit Provider Internal Medicine
DX: R06.00 Dyspnea, unspecified (principal); E04.2 Nontoxic multinodular goiter
CPT/HCPCS: 36415; 80048; 84439; 84443

== ENCOUNTER 2022-10-05 13:44 | Observation (INO) | payer MEDICARE, MEDICAID, SELFPAY ==
--- NOTE | ~2022-10-05 | CT_ITS ---
CT head/brain wo IV con CLINICAL INFORMATION: Reason for Exam Fall, head strike, on aspirin, rule out fracture, COMPARISON: Prior CT from 2019 TECHNIQUE: Department standard protocol. This CT examination was performed using dose optimization techniques as appropriate, variously including the following: *Automated exposure control *Adjustment of mA and/or kV according to patient size (this includes techniques or standardized protocols for targeted exams where dose is matched to indication/reason for exam; i.e. extremities or head) *Use of iterative reconstruction technique DLP: 1451 mGy-cm FINDINGS: CEREBRAL HEMISPHERES: There is no evidence of intra-axial or extra-axial mass, hemorrhage or acute infarct. BRAIN PARENCHYMA: Normal castanon-white matter differentiation. SUBDURAL SPACE: No bleed. BASAL GANGLIA AND PINEAL GLAND: Unremarkable VENTRICLES: Symmetric and normal in size. CEREBELLUM AND BRAINSTEM: No space-occupying mass, hemorrhage or acute infarct. CEREBELLOPONTINE ANGLES: No lesion found. ORBITS: No intraorbital mass. VESSELS: Unremarkable SKULL BASE: Unremarkable INCLUDED SINUSES AT SKULL BASE: Clear SKULL AND SKIN: Extracalvarial subcutaneous small hematoma along the right parietal measure roughly 1.3 x 0.5 cm underlying skull is intact. No associated intracranial hemorrhage. CT/CT head/brain wo IV con IMPRESSION: * Extracalvarial subcutaneous small hematoma along the right parietal bone. * No intracranial bleed. * No CT evidence of intracranial space-occupying mass, bleed or infarct.
--- NOTE | ~2022-10-05 | XR_ITS ---
EXAMINATION: XR CHEST CLINICAL INFORMATION: Cough COMPARISON: None TECHNIQUE: Frontal view of the chest was obtained. FINDINGS: No significant abnormality is noted involving the heart, lungs, mediastinum, bony thorax or soft tissues. XR/XR chest 1V IMPRESSION: Unremarkable examination.
--- NOTE | ~2022-10-05 | CT_ITS ---
EXAMINATION: CT CERVICAL SPINE WITHOUT CONTRAST CLINICAL INFORMATION: Fall. Neck pain. COMPARISON: None TECHNIQUE: Axial images obtained through cervical spine. Coronal and sagittal reformatted images are performed at CT scanner This CT examination was performed using dose optimization techniques as appropriate, variously including the following: *Automated exposure control *Adjustment of mA and/or kV according to patient size (this includes techniques or standardized protocols for targeted exams where dose is matched to indication/reason for exam; i.e. extremities or head) *Use of iterative reconstruction technique DLP: 588.43 mGy-cm FINDINGS: Cervical vertebrae have normal height and alignment. No fracture. No prevertebral soft tissue swelling. Advanced multilevel degenerative spondylosis. Significant disc height narrowing with vertebral endplate spurs C4-C5, C5-C6 and C6-C7. Moderate disc height narrowing and vertebral endplate spur at C3-C4 and C7-T1. Multilevel facet joint arthrosis. CT/CT cervical spine wo IV con IMPRESSION: 1. No acute abnormality. 2. Advanced multilevel degenerative spondylosis of cervical spine. Fleischner guidelines were followed.
[2022-10-05 16:31] VITALS: BP 118/66; PULSE 65; RESP 18; TEMP 36.2; O2SAT 99; BMI 31.1
--- NOTE | 2022-10-05 16:36 | ECG_ITS ---
Test Reason : CP Blood Pressure : / mmHG Vent. Rate : 065 BPM Atrial Rate : 065 BPM P-R Int : 206 ms QRS Dur : 136 ms QT Int : 464 ms P-R-T Axes : 015 115 -40 degrees QTc Int : 482 ms Normal sinus rhythm Non-specific intra-ventricular conduction block T wave abnormality, consider inferior ischemia Left posterior fascicular block Abnormal ECG When compared with ECG of 04-JAN-2018 10:24, Non-specific intra-ventricular conduction block has replaced Right bundle branch block Referred By: Emerson Palomino Electronically Signed By:Giorgio Lares
--- NOTE | 2022-10-05 16:36 | ED.FALL ---
HPI - Fall General Chief Complaint: Syncope <Emerson Palomino MD - Last Filed: 10/05/22 16:41> Stated Complaint: Fall 10/05/22 <Emerson Palomino MD - Last Filed: 10/05/22 16:41> Time Seen by Provider: 10/05/22 21:18 <Emerson Palomino MD - Last Filed: 10/05/22 16:41> Source: patient <Zhanna Bright MD - Last Filed: 10/05/22 22:29> Mode of arrival: ambulatory <Zhanna Bright MD - Last Filed: 10/05/22 22:29> History of Present Illness HPI Narrative: 72-year-old male who presents for near syncopal episode that he states occurred wall at home, he had taken his home blood pressure medication and was laying in bed when the home health person arrived and knocked on the door causing him to ?jump up and get out of bed and walk over to the door and then the patient states the next thing he knew he was on the ground but he was aware of everything that was going on at the time. Patient states that the incident was noted by the home health person. Patient states that he did not pass out and denies any prodrome symptoms such as dizziness/headache/shortness of breath/chest pain/palpitations and states that he had eaten breakfast but has not drank a lot of water. <Zhanna Bright MD - Last Filed: 10/05/22 22:29> Related Data Home Medications: Home Medications Medication Instructions Recorded Confirmed clotrimazole-betamethasone 1 1 applic topical DAILY 08/18/20 09/23/22 %-0.05 % topical cream acetaminophen 325 mg tablet 650 mg PO Q6H PRN Pain 08/28/20 09/23/22 (Tylenol) multivitamin 1 cap PO DAILY 08/28/20 09/23/22 pyridostigmine bromide 60 mg tablet 60 mg PO TID 01/27/21 09/23/22 docosahexaenoic acid (dha)-epa 1 cap PO DAILY 10/18/21 09/23/22 capsule prednisone 2.5 mg tablet mg PO 05/12/22 09/23/22 tolterodine 4 mg capsule,extended 4 mg PO DAILY 06/09/22 09/23/22 release 24 hr Previous Rx's Medication Instructions Recorded nitroglycerin 0.4 mg sublingual 0.4 mg sublingual Q5M PRN chest 09/30/20 tablet pain #30 tabs Ventolin HFA 90 mcg/actuation 2 puff inhalation Q4-6H PRN 06/01/21 aerosol inhaler (albuterol sulfate) Wheezing #18 grams ibuprofen 600 mg tablet 600 mg PO Q6H PRN pain #25 tabs 10/26/21 finasteride 5 mg tablet 5 mg PO DAILY 90 days #90 tabs 11/04/21 isosorbide mononitrate 30 mg 30 mg PO DAILY #90 tabs 01/17/22 tablet,extended release 24 hr levothyroxine 50 mcg tablet 50 mcg PO DAILY 30 days #30 tabs 06/16/22 cyclobenzaprine 10 mg tablet 10 mg PO BID PRN muscle spasm #20 06/20/22 tabs lisinopril 20 mg tablet 20 mg PO DAILY #90 tabs 06/21/22 imipramine HCl 25 mg tablet 25 mg PO BEDTIME 90 days #90 tabs 07/15/22 atorvastatin 20 mg tablet 20 mg PO DAILY #90 tabs 07/25/22 Stiolto Respimat 2.5 mcg-2.5 2 puff PO DAILY #4 grams 09/02/22 mcg/actuation solution for inhalation (tiotropium-olodaterol) omeprazole 20 mg capsule,delayed 20 mg PO DAILY #90 caps 09/06/22 release oxycodone 5 mg tablet 5 mg PO Q6H PRN pain #10 tabs 09/16/22 <Emerson Palomino MD - Last Filed: 10/05/22 16:41> Allergies/Adverse Reactions: Allergies Allergy/AdvReac Type Severity Reaction Status Date / Time No Known Allergies Allergy Verified 09/23/22 12:05 [No Known Allergies*] <Emerson Palomino MD - Last Filed: 10/05/22 16:41> Review of Systems Review of Systems: Pertinent positives and negatives as stated in HPI 10 point review of systems is otherwise negative. <Zhanna Bright MD - Last Filed: 10/05/22 22:29> PMFSH Past Medical History Source: nursing notes reviewed <Zhanna Bright MD - Last Filed: 10/05/22 22:29> Medical History: Medical History Abdominal pain Arthritis Back pain Chronic pain syndrome COPD (chronic obstructive pulmonary disease) COPD (chronic obstructive pulmonary disease) Degenerative disc disease, lumbar Diastolic dysfunction Disc degeneration, lumbar JULIEN (dyspnea on exertion) Emphysema of lung GERD (gastroesophageal reflux disease) Hyperglycemia Hyperlipidemia Hypertension Hypothyroid Iatrogenic adrenal insufficiency Iron deficiency anemia Left inguinal hernia Leg cramps Multinodular thyroid Myasthenia gravis Osteoarthritis Preop cardiovascular exam Pulmonary nodule 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 Mother No problems noted. <Emerson Palomino MD - Last Filed: 10/05/22 16:41> Social History Social History: Social History Housing: House Are you a primary primary care nurse practitioner to a significant other at home: No Do you presently have visiting nurse or other home services: No Alcohol intake: never Patient Tobacco Use Status: Never used Tobacco e-Cigarette/Vaping Use: Never Used Second Hand Smoke Exposure: No Advance Directives: No Advance Directives Information Provided: No Current occupational status: retired Current occupation: right handed <Emerson Palomino MD - Last Filed: 10/05/22 16:41> Physical Exam Vital Signs: Vital Signs: Last Vital Signs Temp 97.2 F 10/05/22 16:31 Pulse 67 11/30/22 21:41 Resp 16 10/05/22 21:13 BP 118/72 10/05/22 21:41 Pulse Ox 97 10/05/22 21:13 O2 Del Method 10/05/22 21:13 BMI result Body Mass Index 31.1 <Emerson Palomino MD - Last Filed: 10/05/22 16:41> Vital Signs: Last Vital Signs Temp 97.2 F 10/05/22 16:31 Pulse 67 10/05/22 21:41 Resp 16 10/05/22 21:13 BP 118/72 10/05/22 21:41 Pulse Ox 97 10/05/22 21:13 O2 Del Method 10/05/22 21:13 BMI result Body Mass Index 31.1 VITAL SIGNS: Reviewed. GENERAL: Well developed, well nourished, in no acute distress. HEAD: Normocephalic/atraumatic EYES: PERRLA, EOMI EARS: Ext canals without abnormality OROPHARYNX: no oral lesions noted, posterior pharynx clear NECK: Supple, no adenopathy LUNGS: Normal breath sounds. No adventitious sounds or accessory muscle use. SpO2<97> CARDIOVASCULAR: Regular rate and rhythm without noted murmurs, no JVD or lower extremity edema. ABDOMEN: Soft, non-tender, non-distended with bowel sounds. MUSCULOSKELETAL: No tenderness, deformities, or effusions noted on gross inspection. EXTREMITIES: No cyanosis, clubbing or edema. SKIN: Inspection of the skin reveals no rashes NEUROLOGIC: Alert and oriented x 4. Strength and sensation to light touch were grossly intact x 4, cranial nerves 2-12 are grossly intact <Zhanna Bright MD - Last Filed: 10/05/22 22:29> Course Course Course Narrative: RME: 72-year-old male with a history of COPD, degenerative disc disease lumbar area, hyperglycemia, myasthenia gravis, hyperlipidemia, hypertension, hypothyroidism presents emergency department for evaluation of injuries from fall. Patient states that he was at home and his 's visiting nurse came to the door. The patient got up to answer the door, he felt a little off balance, he then stumbled and struck his head on the door and and fell to the ground. Patient does not remember the event and is not certain if he had loss of consciousness. The visiting nurse told him that his blood pressure was low and that he should go to the emergency department for evaluation. Patient is on aspirin, denies headache, he is complaining of lower back pain. Vital signs were normal. Head is normal cephalic, he does have some tenderness palpation over the forehead but no hematoma. Pupils were equal round reactive light, sclera contact however normal, mouth revealed moist membranes, neck: Supple, he does have tenderness palpation of his cervical spine, lungs: Clear to auscultation breath sounds symmetric bilaterally. Heart: Regular rate rhythm, normal S1-S2, no murmurs rubs gallops. Abdomen: Soft, nontender, nondistended with normoactive bowel sounds. Extremities: No trauma. Neuro nonfocal. I ordered a CBC, CMP, COVID-19, influenza, PT INR, PTT, troponin, urinalysis, [address] scan of the patient's head and cervical spine. <Emerson Palomino MD - Last Filed: 10/05/22 16:41> RME: 72-year-old male with a history of COPD, degenerative disc disease lumbar area, hyperglycemia, myasthenia gravis, hyperlipidemia, hypertension, hypothyroidism presents emergency department for evaluation of injuries from fall. Patient states that he was at home and his 's visiting nurse came to the door. The patient got up to answer the door, he felt a little off balance, he then stumbled and struck his head on the door and and fell to the ground. Patient does not remember the event and is not certain if he had loss of consciousness. The visiting nurse told him that his blood pressure was low and that he should go to the emergency department for evaluation. Patient is on aspirin, denies headache, he is complaining of lower back pain. Vital signs were normal. Head is normal cephalic, he does have some tenderness palpation over the forehead but no hematoma. Pupils were equal round reactive light, sclera contact however normal, mouth revealed moist membranes, neck: Supple, he does have tenderness palpation of his cervical spine, lungs: Clear to auscultation breath sounds symmetric bilaterally. Heart: Regular rate rhythm, normal S1-S2, no murmurs rubs gallops. Abdomen: Soft, nontender, nondistended with normoactive bowel sounds. Extremities: No trauma. Neuro nonfocal. I ordered a CBC, CMP, COVID-19, influenza, PT INR, PTT, troponin, urinalysis, [address] scan of the patient's head and cervical spine. On review of all investigations after history and prior incident noted last year in June everything is consistent with syncopal likely vasovagal, but on review of cardiology notes patient has been having complaints of dyspnea on exertion and although he is noted to have a history of COPD the mild leukocytosis is felt to be attributed to the stress/reactive incident that occurred today with a syncopal episode. There is no evidence to suggest acute infection, anemia, electrolyte abnormality. In addition, although there is no comparison to serial troponins are mildly elevated and given patient's heart score and the syncopal episode feel that this patient should be admitted. I discussed the case with the inpatient hospitalist who accepts admission. All results, plans were discussed with the patient. <Zhanna Bright MD - Last Filed: 10/05/22 22:29> MDM - Fall Lab Data Result diagrams: : 10/05/22 17:04 10/05/22 17:04 <Emerson Palomino MD - Last Filed: 10/05/22 16:41> Labs: Lab Results 10/05/22 10/05/22 10/05/22 Range/Units 17:04 17:04 17:04 WBC 11.0 H (4.8-10.8) X10*3/uL RBC 5.12 (4.60-5.80) X10*6/uL Hgb 14.0 (14.0-18.0) g/dl Hct 42.8 (42.0-52.0) % MCV 83.6 (80.0-98.0) fL MCH 27.3 (27.0-33.0) pg MCHC 32.7 (31.0-36.0) g/dl RDW 14.2 (11.0-16.0) % Plt Count 262 (160-400) X10*3/uL MPV 10.2 (9.4-12.4) fL Immature Gran % (Auto) 0.5 H (0.0-0.4) % Neut % (Auto) 74.8 H (45-73) % Lymph % (Auto) 12.6 L (20-40) % [place] % (Auto) 7.9 (2-11) % Eos % (Auto) 3.7 (0-4) % Baso % (Auto) 0.5 (0-2) % Lymph # (Auto) 1.4 (1.2-4.9) X10*3/uL [place] # (Auto) 0.9 (0.1-1.2) X10*3/uL Eos # (Auto) 0.4 (0.0-0.4) X10*3/uL Baso # (Auto) 0.1 (0.0-0.2) X10*3/uL Abs Immat Gran (auto) 0.05 H (0.00-0.03) X10*3/uL Absolute Neuts (auto) 8.2 (2.0-8.3) x10*3/uL Absolute Nucleated RBC 0.000 (0.0-0.012) X10*3/uL Nucleated RBC % (auto) 0.0 (0.0-0.2) /100WBC PT 13.8 H (10.0-13.1) SEC INR 1.2 H (0.9-1.1) APTT 29.5 (26.0-36.4) SEC Sodium 133 L (135-145) mmol/L Potassium 4.5 (3.3-5.1) mmol/L Chloride 101 (96-108) mmol/L Carbon Dioxide 22 (22-29) mmol/L Anion Gap 15 (12-20) BUN 26 H (9-16) mg/dL Creatinine 1.14 (0.5-1.4) mg/dL Estim Creat Clear Calc 74.2 Estimated GFR > 60 Random Glucose 97 (60-115) mg/dL Calcium 9.0 (8.4-10.2) mg/dL Total Bilirubin 0.5 (0.0-1.0) mg/dL AST 27 (5-37) U/L ALT 23 (0-40) U/L Alkaline Phosphatase 115 (39-117) U/L Troponin I High Sens (<3.5-35.0) ng/L Total Protein 6.8 (6.5-8.0) g/dL Albumin 4.1 (3.5-5.0) g/dL Urine Color Urine Appearance Urine pH (5.0-9.0) Ur Specific [place] (1.005-1.025) Urine Protein (Neg-Trace) mg/dL Urine Glucose (UA) (Negative) mg/dL Urine Ketones (Negative) mg/dL Urine Blood (Negative) Urine Nitrite (Negative) Ur Leukocyte Esterase (Negative) COVID-19 (ZAKI) (Negative) COVID-19 Clin Com Influenza Type A (PARKER) (Negative) Influenza Type B (PARKER) (Negative) Influenza A & B Note 10/05/22 10/05/22 10/05/22 Range/Units 17:04 17:04 17:04 WBC (4.8-10.8) X10*3/uL RBC (4.60-5.80) X10*6/uL Hgb (14.0-18.0) g/dl Hct (42.0-52.0) % MCV (80.0-98.0) fL MCH (27.0-33.0) pg MCHC (31.0-36.0) g/dl RDW (11.0-16.0) % Plt Count (160-400) X10*3/uL MPV (9.4-12.4) fL Immature Gran % (Auto) (0.0-0.4) % Neut % (Auto) (45-73) % Lymph % (Auto) (20-40) % [place] % (Auto) (2-11) % Eos % (Auto) (0-4) % Baso % (Auto) (0-2) % Lymph # (Auto) (1.2-4.9) X10*3/uL [place] # (Auto) (0.1-1.2) X10*3/uL Eos # (Auto) (0.0-0.4) X10*3/uL Baso # (Auto) (0.0-0.2) X10*3/uL Abs Immat Gran (auto) (0.00-0.03) X10*3/uL Absolute Neuts (auto) (2.0-8.3) x10*3/uL Absolute Nucleated RBC (0.0-0.012) X10*3/uL Nucleated RBC % (auto) (0.0-0.2) /100WBC PT (10.0-13.1) SEC INR (0.9-1.1) APTT (26.0-36.4) SEC Sodium (135-145) mmol/L Potassium (3.3-5.1) mmol/L Chloride (96-108) mmol/L Carbon Dioxide (22-29) mmol/L Anion Gap (12-20) BUN (9-16) mg/dL Creatinine (0.5-1.4) mg/dL Estim Creat Clear Calc Estimated GFR Random Glucose (60-115) mg/dL Calcium (8.4-10.2) mg/dL Total Bilirubin (0.0-1.0) mg/dL AST (5-37) U/L ALT (0-40) U/L Alkaline Phosphatase (39-117) U/L Troponin I High Sens 57.0 H (<3.5-35.0) ng/L Total Protein (6.5-8.0) g/dL Albumin (3.5-5.0) g/dL Urine Color Urine Appearance Urine pH (5.0-9.0) Ur Specific [place] (1.005-1.025) Urine Protein (Neg-Trace) mg/dL Urine Glucose (UA) (Negative) mg/dL Urine Ketones (Negative) mg/dL Urine Blood (Negative) Urine Nitrite (Negative) Ur Leukocyte Esterase (Negative) COVID-19 (ZAKI) Negative (Negative) COVID-19 Clin Com See Note Influenza Type A (PARKER) Negative (Negative) Influenza Type B (PARKER) Negative (Negative) Influenza A & B Note See Note 10/05/22 10/05/22 Range/Units 21:09 21:41 WBC (4.8-10.8) X10*3/uL RBC (4.60-5.80) X10*6/uL Hgb (14.0-18.0) g/dl Hct (42.0-52.0) % MCV (80.0-98.0) fL MCH (27.0-33.0) pg MCHC (31.0-36.0) g/dl RDW (11.0-16.0) % Plt Count (160-400) X10*3/uL MPV (9.4-12.4) fL Immature Gran % (Auto) (0.0-0.4) % Neut % (Auto) (45-73) % Lymph % (Auto) (20-40) % [place] % (Auto) (2-11) % Eos % (Auto) (0-4) % Baso % (Auto) (0-2) % Lymph # (Auto) (1.2-4.9) X10*3/uL [place] # (Auto) (0.1-1.2) X10*3/uL Eos # (Auto) (0.0-0.4) X10*3/uL Baso # (Auto) (0.0-0.2) X10*3/uL Abs Immat Gran (auto) (0.00-0.03) X10*3/uL Absolute Neuts (auto) (2.0-8.3) x10*3/uL Absolute Nucleated RBC (0.0-0.012) X10*3/uL Nucleated RBC % (auto) (0.0-0.2) /100WBC PT (10.0-13.1) SEC INR (0.9-1.1) APTT (26.0-36.4) SEC Sodium (135-145) mmol/L Potassium (3.3-5.1) mmol/L Chloride (96-108) mmol/L Carbon Dioxide (22-29) mmol/L Anion Gap (12-20) BUN (9-16) mg/dL Creatinine (0.5-1.4) mg/dL Estim Creat Clear Calc Estimated GFR Random Glucose (60-115) mg/dL Calcium (8.4-10.2) mg/dL Total Bilirubin (0.0-1.0) mg/dL AST (5-37) U/L ALT (0-40) U/L Alkaline Phosphatase (39-117) U/L Troponin I High Sens 68.8 H (<3.5-35.0) ng/L Total Protein (6.5-8.0) g/dL Albumin (3.5-5.0) g/dL Urine Color Yellow Urine Appearance Clear Urine pH 5.5 (5.0-9.0) Ur Specific [place] 1.025 (1.005-1.025) Urine Protein Negative (Neg-Trace) mg/dL Urine Glucose (UA) Negative (Negative) mg/dL Urine Ketones Negative (Negative) mg/dL Urine Blood Negative (Negative) Urine Nitrite Negative (Negative) Ur Leukocyte Esterase Negative (Negative) COVID-19 (ZAKI) (Negative) COVID-19 Clin Com Influenza Type A (PARKER) (Negative) Influenza Type B (PARKER) (Negative) Influenza A & B Note <Emerson Palomino MD - Last Filed: 10/05/22 16:41> Lab Results 10/05/22 10/05/22 10/05/22 Range/Units 17:04 17:04 17:04 WBC 11.0 H (4.8-10.8) X10*3/uL RBC 5.12 (4.60-5.80) X10*6/uL Hgb 14.0 (14.0-18.0) g/dl Hct 42.8 (42.0-52.0) % MCV 83.6 (80.0-98.0) fL MCH 27.3 (27.0-33.0) pg MCHC 32.7 (31.0-36.0) g/dl RDW 14.2 (11.0-16.0) % Plt Count 262 (160-400) X10*3/uL MPV 10.2 (9.4-12.4) fL Immature Gran % (Auto) 0.5 H (0.0-0.4) % Neut % (Auto) 74.8 H (45-73) % Lymph % (Auto) 12.6 L (20-40) % [place] % (Auto) 7.9 (2-11) % Eos % (Auto) 3.7 (0-4) % Baso % (Auto) 0.5 (0-2) % Lymph # (Auto) 1.4 (1.2-4.9) X10*3/uL [place] # (Auto) 0.9 (0.1-1.2) X10*3/uL Eos # (Auto) 0.4 (0.0-0.4) X10*3/uL Baso # (Auto) 0.1 (0.0-0.2) X10*3/uL Abs Immat Gran (auto) 0.05 H (0.00-0.03) X10*3/uL Absolute Neuts (auto) 8.2 (2.0-8.3) x10*3/uL Absolute Nucleated RBC 0.000 (0.0-0.012) X10*3/uL Nucleated RBC % (auto) 0.0 (0.0-0.2) /100WBC PT 13.8 H (10.0-13.1) SEC INR 1.2 H (0.9-1.1) APTT 29.5 (26.0-36.4) SEC Sodium 133 L (135-145) mmol/L Potassium 4.5 (3.3-5.1) mmol/L Chloride 101 (96-108) mmol/L Carbon Dioxide 22 (22-29) mmol/L Anion Gap 15 (12-20) BUN 26 H (9-16) mg/dL Creatinine 1.14 (0.5-1.4) mg/dL Estim Creat Clear Calc 74.2 Estimated GFR > 60 Random Glucose 97 (60-115) mg/dL Calcium 9.0 (8.4-10.2) mg/dL Total Bilirubin 0.5 (0.0-1.0) mg/dL AST 27 (5-37) U/L ALT 23 (0-40) U/L Alkaline Phosphatase 115 (39-117) U/L Troponin I High Sens (<3.5-35.0) ng/L Total Protein 6.8 (6.5-8.0) g/dL Albumin 4.1 (3.5-5.0) g/dL Urine Color Urine Appearance Urine pH (5.0-9.0) Ur Specific [place] (1.005-1.025) Urine Protein (Neg-Trace) mg/dL Urine Glucose (UA) (Negative) mg/dL Urine Ketones (Negative) mg/dL Urine Blood (Negative) Urine Nitrite (Negative) Ur Leukocyte Esterase (Negative) COVID-19 (ZAKI) (Negative) COVID-19 Clin Com Influenza Type A (PARKER) (Negative) Influenza Type B (PARKER) (Negative) Influenza A & B Note 10/05/22 10/05/22 10/05/22 Range/Units 17:04 17:04 17:04 WBC (4.8-10.8) X10*3/uL RBC (4.60-5.80) X10*6/uL Hgb (14.0-18.0) g/dl Hct (42.0-52.0) % MCV (80.0-98.0) fL MCH (27.0-33.0) pg MCHC (31.0-36.0) g/dl RDW (11.0-16.0) % Plt Count (160-400) X10*3/uL MPV (9.4-12.4) fL Immature Gran % (Auto) (0.0-0.4) % Neut % (Auto) (45-73) % Lymph % (Auto) (20-40) % [place] % (Auto) (2-11) % Eos % (Auto) (0-4) % Baso % (Auto) (0-2) % Lymph # (Auto) (1.2-4.9) X10*3/uL [place] # (Auto) (0.1-1.2) X10*3/uL Eos # (Auto) (0.0-0.4) X10*3/uL Baso # (Auto) (0.0-0.2) X10*3/uL Abs Immat Gran (auto) (0.00-0.03) X10*3/uL Absolute Neuts (auto) (2.0-8.3) x10*3/uL Absolute Nucleated RBC (0.0-0.012) X10*3/uL Nucleated RBC % (auto) (0.0-0.2) /100WBC PT (10.0-13.1) SEC INR (0.9-1.1) APTT (26.0-36.4) SEC Sodium (135-145) mmol/L Potassium (3.3-5.1) mmol/L Chloride (96-108) mmol/L Carbon Dioxide (22-29) mmol/L Anion Gap (12-20) BUN (9-16) mg/dL Creatinine (0.5-1.4) mg/dL Estim Creat Clear Calc Estimated GFR Random Glucose (60-115) mg/dL Calcium (8.4-10.2) mg/dL Total Bilirubin (0.0-1.0) mg/dL AST (5-37) U/L ALT (0-40) U/L Alkaline Phosphatase (39-117) U/L Troponin I High Sens 57.0 H (<3.5-35.0) ng/L Total Protein (6.5-8.0) g/dL Albumin (3.5-5.0) g/dL Urine Color Urine Appearance Urine pH (5.0-9.0) Ur Specific [place] (1.005-1.025) Urine Protein (Neg-Trace) mg/dL Urine Glucose (UA) (Negative) mg/dL Urine Ketones (Negative) mg/dL Urine Blood (Negative) Urine Nitrite (Negative) Ur Leukocyte Esterase (Negative) COVID-19 (ZAKI) Negative (Negative) COVID-19 Clin Com See Note Influenza Type A (PARKER) Negative (Negative) Influenza Type B (PARKER) Negative (Negative) Influenza A & B Note See Note 10/05/22 10/05/22 Range/Units 21:09 21:41 WBC (4.8-10.8) X10*3/uL RBC (4.60-5.80) X10*6/uL Hgb (14.0-18.0) g/dl Hct (42.0-52.0) % MCV (80.0-98.0) fL MCH (27.0-33.0) pg MCHC (31.0-36.0) g/dl RDW (11.0-16.0) % Plt Count (160-400) X10*3/uL MPV (9.4-12.4) fL Immature Gran % (Auto) (0.0-0.4) % Neut % (Auto) (45-73) % Lymph % (Auto) (20-40) % [place] % (Auto) (2-11) % Eos % (Auto) (0-4) % Baso % (Auto) (0-2) % Lymph # (Auto) (1.2-4.9) X10*3/uL [place] # (Auto) (0.1-1.2) X10*3/uL Eos # (Auto) (0.0-0.4) X10*3/uL Baso # (Auto) (0.0-0.2) X10*3/uL Abs Immat Gran (auto) (0.00-0.03) X10*3/uL Absolute Neuts (auto) (2.0-8.3) x10*3/uL Absolute Nucleated RBC (0.0-0.012) X10*3/uL Nucleated RBC % (auto) (0.0-0.2) /100WBC PT (10.0-13.1) SEC INR (0.9-1.1) APTT (26.0-36.4) SEC Sodium (135-145) mmol/L Potassium (3.3-5.1) mmol/L Chloride (96-108) mmol/L Carbon Dioxide (22-29) mmol/L Anion Gap (12-20) BUN (9-16) mg/dL Creatinine (0.5-1.4) mg/dL Estim Creat Clear Calc Estimated GFR Random Glucose (60-115) mg/dL Calcium (8.4-10.2) mg/dL Total Bilirubin (0.0-1.0) mg/dL AST (5-37) U/L ALT (0-40) U/L Alkaline Phosphatase (39-117) U/L Troponin I High Sens 68.8 H (<3.5-35.0) ng/L Total Protein (6.5-8.0) g/dL Albumin (3.5-5.0) g/dL Urine Color Yellow Urine Appearance Clear Urine pH 5.5 (5.0-9.0) Ur Specific [place] 1.025 (1.005-1.025) Urine Protein Negative (Neg-Trace) mg/dL Urine Glucose (UA) Negative (Negative) mg/dL Urine Ketones Negative (Negative) mg/dL Urine Blood Negative (Negative) Urine Nitrite Negative (Negative) Ur Leukocyte Esterase Negative (Negative) COVID-19 (ZAKI) (Negative) COVID-19 Clin Com Influenza Type A (PARKER) (Negative) Influenza Type B (PARKER) (Negative) Influenza A & B Note <Zhanna Bright MD - Last Filed: 10/05/22 22:29> Discharge Plan Discharge Clinical Impression: Syncope, Elevated troponin <Emerson Palomino MD - Last Filed: 10/05/22 16:41> Patient Disposition: Admitted As Inpatient <Emerson Palomino MD - Last Filed: 10/05/22 16:41> Prescriptions: No Action nitroglycerin 0.4 mg tablet, sublingual 0.4 mg sublingual Q5M PRN (Reason: chest pain) Qty: 30 0RF Rx Instructions: do not exceed 3 doses per episode albuterol sulfate [Ventolin HFA] 90 mcg/actuation HFA aerosol inhaler 2 puff inhalation Q4-6H PRN (Reason: Wheezing) Qty: 18 0RF finasteride 5 mg tablet 5 mg PO DAILY 90 Days Qty: 90 2RF isosorbide mononitrate 30 mg tablet extended release 24 hr 30 mg PO DAILY Qty: 90 3RF levothyroxine 50 mcg tablet 50 mcg PO DAILY 30 Days Qty: 30 3RF lisinopril 20 mg tablet 20 mg PO DAILY Qty: 90 1RF atorvastatin 20 mg tablet 20 mg PO DAILY Qty: 90 3RF Stiolto Respimat 2.5-2.5 mcg/actuation mist 2 puff PO DAILY Qty: 4 3RF omeprazole 20 mg capsule,delayed release(DR/EC) 20 mg PO DAILY Qty: 90 1RF acetaminophen [Tylenol] 325 mg Tablet 650 mg PO Q6H PRN (Reason: Pain) multivitamin Capsule 1 cap PO DAILY Fish Oil (with DHA-EPA) Capsule 1 cap PO DAILY ibuprofen 600 mg tablet 600 mg PO Q6H PRN (Reason: pain) Qty: 25 0RF tolterodine 4 mg capsule,extended release 24hr 4 mg PO DAILY cyclobenzaprine 10 mg tablet 10 mg PO BID PRN (Reason: muscle spasm) Qty: 20 0RF oxycodone 5 mg tablet 5 mg PO Q6H MDD 20 mg PRN (Reason: pain) Qty: 10 0RF Rx Instructions: Partial Fill upon patient request. clotrimazole-betamethasone 1-0.05 % cream 1 applic topical DAILY pyridostigmine bromide 60 mg tablet 60 mg PO TID imipramine HCl 25 mg tablet 25 mg PO BEDTIME 90 Days Qty: 90 1RF prednisone 2.5 mg tablet PO <Emerson Palomino MD - Last Filed: 10/05/22 16:41>
[2022-10-05 17:13] LABS: MANUAL DIFF FLAG NO
[2022-10-05 17:19] LABS: Basophils Absolute Auto 0.1 X10*3/uL (0.0-0.2); Basophils Percent Auto 0.5 % (0-2); Eosinophils Absolute Auto 0.4 X10*3/uL (0.0-0.4); Eosinophils Percent Auto 3.7 % (0-4); Hematocrit 42.8 % (42.0-52.0); Imm Gran Abs Auto 0.05 X10*3/uL (0.00-0.03); Imm Gran Pct Auto 0.5 % (0.0-0.4); Lymphocytes Absolute Auto 1.4 X10*3/uL (1.2-4.9); Lymphocytes Percent Auto 12.6 % (20-40); Mean Corpuscular HGB Conc 32.7 g/dl (31.0-36.0); Mean Corpuscular Hemoglobin 27.3 pg (27.0-33.0); Mean Corpuscular Volume 83.6 fL (80.0-98.0); Mean Platelet Volume 10.2 fL (9.4-12.4); Monocytes Absolute Auto 0.9 X10*3/uL (0.1-1.2); Monocytes Percent Auto 7.9 % (2-11); Neutrophils Absolute Auto 8.2 x10*3/uL (2.0-8.3); Neutrophils Percent Auto 74.8 % (45-73); Platelet Count 262 X10*3/uL (160-400); Red Blood Count 5.12 X10*6/uL (4.60-5.80); Red Cell Distribution Width 14.2 % (11.0-16.0)
[2022-10-05 17:29] LABS: COVID-19 Test Negative (Negative); IDNOW Serial# 16C4AD1C; IDNOW Serial# BCCEAD1C; Influenza A Negative (Negative); Influenza B2 Negative (Negative)
[2022-10-05 17:37] LABS: Alanine Aminotransferase 23 U/L (0-40); Albumin Level 4.1 g/dL (3.5-5.0); Anion Gap 15 (12-20); Aspartate Amino Transferase 27 U/L (5-37); Bilirubin Total 0.5 mg/dL (0.0-1.0); Blood Urea Nitrogen 26 mg/dL (9-16); Carbon Dioxide 22 mmol/L (22-29); Chloride 101 mmol/L (96-108); Creatinine Clr Calc Pharmacy 74.2; Estimated Glomerular Filt Rate > 60; Glucose Random 97 mg/dL (60-115); Potassium 4.5 mmol/L (3.3-5.1); Sodium 133 mmol/L (135-145); Total Protein 6.8 g/dL (6.5-8.0)
[2022-10-05 17:38] LABS: Alkaline Phosphatase 115 U/L (39-117)
[2022-10-05 17:55] LABS: INTERNATIONAL NORM RATIO 1.2 (0.9-1.1); Prothrombin Time 13.8 SEC (10.0-13.1)
[2022-10-05 17:57] LABS: Partial Thromboplastin Time 29.5 SEC (26.0-36.4)
[2022-10-05 21:13] VITALS: BP 99/59; PULSE 68; RESP 16; O2SAT 97
[2022-10-05 21:35] VITALS: BP 107/69; PULSE 62
[2022-10-05 21:36] LABS: Troponin-I High Sensitivity 68.8 ng/L (<3.5-35.0)
[2022-10-05 21:39] VITALS: BP 110/69; PULSE 69
[2022-10-05 21:41] VITALS: BP 118/72; PULSE 67
[2022-10-05 21:53] LABS: Appearance Urine Clear; Color Urine Yellow; Glucose Urine UA Negative (Negative); Leukocyte Esterase Urine Negative (Negative); Nitrite Urine Negative (Negative); PH 5.5 (5.0-9.0); Specific Gravity - Urine 1.025 (1.005-1.025); Urine Blood Negative (Negative); Urine Ketones Negative (Negative); Urine Protein Negative (Neg-Trace)
[2022-10-05 22:38] VITALS: O2SAT 97
--- NOTE | 2022-10-05 22:39 | PM.IMHP ---
History of Present Illness Date of Service: 10/05/22 Chief Complaint: Syncope 72-year-old male with past medical history of COPD, diastolic heart failure, dyspnea on exertion, hyperlipidemia, HTN, hypothyroidism, myasthenia gravis, GERD presents to the hospital after syncopal episode witnessed by home health nurse. Patient reports that he takes care of his after she had a stroke, he reports that he has a visiting nurse that comes to evaluate his , he was laying in bed waiting for the nurse to arrive. On arrival of the nurse, patient got up out of bed to open the door for her and after taking about 10-12 steps collapsed. Patient reports that he was completely unconscious for probably 2nd, regained full consciousness after that, with no confusion. This syncopal episode was witnessed by the nurse on the other side of the door. Eighty reports no recollection of hitting his head although he was told by the visiting nurse that he did hit his head. Patient denies any headache at this time, no change in vision, no palpitations, no chest pain, reports no prodromal or postictal symptoms. Reports 1 similar episode about a year ago, he reports that he was evaluated at an outside hospital and no etiology was found. Patient denies any recent acute infection or illness. He reports good oral intake. Patient has chronic dyspnea on exertion which was 1 of the reasons he is being evaluated by Cardiology for underlying coronary artery disease. On arrival to the ED patient hemodynamically stable with a slightly low blood pressure of 99/59 Labs are significant for WBC count of 11, labs otherwise unremarkable, he had a troponin of 57 that increased to 60.8, UA negative EKG showed nonspecific ST T wave abnormalities, patient has T-wave inversions on that lead 3 which was present on previous EKG Chest x-ray is unremarkable exam Head CT shows extricate the calvaria subcutaneous small hematoma along the right parietal bone No intracranial bleed, no CT evidence of intracranial space-occupying mass, bleed, or infarct Patient does report that he has plans with his lithographic proofer Dr. Lares, to be evaluated for coronary artery disease but has not had an appointment yet. Review of Systems Review of Systems: Yes all other systems are reviewed and are negative [facility] Medical History Abdominal pain Arthritis Back pain Chronic pain syndrome COPD (chronic obstructive pulmonary disease) COPD (chronic obstructive pulmonary disease) Degenerative disc disease, lumbar Diastolic dysfunction Disc degeneration, lumbar JULIEN (dyspnea on exertion) Emphysema of lung GERD (gastroesophageal reflux disease) Hyperglycemia Hyperlipidemia Hypertension Hypothyroid Iatrogenic adrenal insufficiency Iron deficiency anemia Left inguinal hernia Leg cramps Multinodular thyroid Myasthenia gravis Osteoarthritis Preop cardiovascular exam Pulmonary nodule 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 Mother No problems noted. Surgical History History of colonoscopy History of hydrocelectomy History of left inguinal hernia repair History of lung surgery (~11/2020) History of total right hip arthroplasty (~02/2018) Hx of tonsillectomy S/P insertion of spinal cord stimulator Social History Housing: House Are you a primary professional healthcare representative to a significant other at home: No Do you presently have visiting nurse or other home services: No Alcohol intake: never Patient Tobacco Use Status: Never used Tobacco Smoked in Last 30 Days: No e-Cigarette/Vaping Use: Never Used Second Hand Smoke Exposure: No Use of substances other than those prescribed or required for medical reasons: No Advance Directives: No Advance Directives Information Provided: No Current occupational status: retired Current occupation: right handed Meds Allergies Allergy/AdvReac Type Severity Reaction Status Date / Time No Known Allergies Allergy Verified 09/23/22 12:05 [No Known Allergies*] Active Medications: Current Medications Sodium Chloride (0.9 % Sodium Chloride Flush 3 Ml Syringe) [facility] Medication Instructions Recorded Confirmed Last Taken Type clotrimazole-betamethasone 1 1 applic topical DAILY 08/18/20 10/05/22 Unknown History %-0.05 % topical cream acetaminophen 325 mg tablet 650 mg PO Q6H PRN Pain 08/28/20 10/05/22 10/04/22 History (Tylenol) multivitamin 1 cap PO DAILY 08/28/20 10/05/22 10/04/22 History pyridostigmine bromide 60 mg tablet 60 mg PO TID 01/27/21 10/05/22 10/04/22 History docosahexaenoic acid (dha)-epa 1 cap PO DAILY 10/18/21 10/05/22 10/04/22 History capsule prednisone 2.5 mg tablet mg PO 05/12/22 09/23/22 Unknown History tolterodine 4 mg capsule,extended 4 mg PO DAILY 06/09/22 09/23/22 10/04/22 History release 24 hr lisinopril 20 mg tablet 1 tab PO DAILY 10/05/22 10/05/22 10/04/22 History Physical Exam Vital Signs and Narrative: Vital Signs: Last Vital Signs Temp 97.2 F 10/05/22 16:31 Pulse 67 10/05/22 21:41 Resp 16 10/05/22 21:13 BP 118/72 10/05/22 21:41 Pulse Ox 97 10/05/22 22:38 O2 Del Method 10/05/22 22:38 BMI result Body Mass Index 31.1 Const: Other: Patient alert oriented x3, General: cooperative and no acute distress Orientation/consciousness: patient oriented x3 HEENT: Other: No evidence of large hematoma on exam of the head and neck Eyes: General: appearance normal, both eyes and all related structures Resp: Effort & Inspection: normal respiratory effort Auscultation: clear to auscultation bilaterally Cardio: Rate: regular rate Rhythm: regular rhythm GI: Palpation (GI): Soft to palpation Auscultation: normal bowel sounds Skin: General skin exam: no rashes or lesions noted Neuro: General: patient oriented x3 Cognition (Neuro): normal cognition Extrem: General: Yes normal to inspection and Yes no pedal edema Results Labs CBC and Chem 7: 10/06/22 06:30 10/05/22 17:04 Labs: Laboratory Results - last 24 hr 10/05/22 10/05/22 10/05/22 17:04 17:04 17:04 MCV 83.6 MCH 27.3 MCHC 32.7 RDW 14.2 Plt Count 262 MPV 10.2 Immature Gran % (Auto) 0.5 H Neut % (Auto) 74.8 H Lymph % (Auto) 12.6 L [place] % (Auto) 7.9 Eos % (Auto) 3.7 Baso % (Auto) 0.5 Lymph # (Auto) 1.4 [place] # (Auto) 0.9 Eos # (Auto) 0.4 Baso # (Auto) 0.1 Abs Immat Gran (auto) 0.05 H Absolute Neuts (auto) 8.2 Absolute Nucleated RBC 0.000 Nucleated RBC % (auto) 0.0 PT 13.8 H INR 1.2 H APTT 29.5 Anion Gap 15 Estim Creat Clear Calc 74.2 Estimated GFR > 60 Random Glucose 97 Calcium 9.0 Total Bilirubin 0.5 AST 27 ALT 23 Alkaline Phosphatase 115 Troponin I High Sens Total Protein 6.8 Albumin 4.1 Urine Color Urine Appearance Urine pH Ur Specific [place] Urine Protein Urine Glucose (UA) Urine Ketones Urine Blood Urine Nitrite Ur Leukocyte Esterase COVID-19 (ZAKI) COVID-19 Clin Com Influenza Type A (PARKER) Influenza Type B (PARKER) Influenza A & B Note 10/05/22 10/05/22 10/05/22 17:04 17:04 17:04 MCV MCH MCHC RDW Plt Count MPV Immature Gran % (Auto) Neut % (Auto) Lymph % (Auto) [place] % (Auto) Eos % (Auto) Baso % (Auto) Lymph # (Auto) [place] # (Auto) Eos # (Auto) Baso # (Auto) Abs Immat Gran (auto) Absolute Neuts (auto) Absolute Nucleated RBC Nucleated RBC % (auto) PT INR APTT Anion Gap Estim Creat Clear Calc Estimated GFR Random Glucose Calcium Total Bilirubin AST ALT Alkaline Phosphatase Troponin I High Sens 57.0 H Total Protein Albumin Urine Color Urine Appearance Urine pH Ur Specific [place] Urine Protein Urine Glucose (UA) Urine Ketones Urine Blood Urine Nitrite Ur Leukocyte Esterase COVID-19 (ZAKI) Negative COVID-19 Clin Com See Note Influenza Type A (PARKER) Negative Influenza Type B (PARKER) Negative Influenza A & B Note See Note 10/05/22 10/05/22 21:09 21:41 MCV MCH MCHC RDW Plt Count MPV Immature Gran % (Auto) Neut % (Auto) Lymph % (Auto) [place] % (Auto) Eos % (Auto) Baso % (Auto) Lymph # (Auto) [place] # (Auto) Eos # (Auto) Baso # (Auto) Abs Immat Gran (auto) Absolute Neuts (auto) Absolute Nucleated RBC Nucleated RBC % (auto) PT INR APTT Anion Gap Estim Creat Clear Calc Estimated GFR Random Glucose Calcium Total Bilirubin AST ALT Alkaline Phosphatase Troponin I High Sens 68.8 H Total Protein Albumin Urine Color Yellow Urine Appearance Clear Urine pH 5.5 Ur Specific [place] 1.025 Urine Protein Negative Urine Glucose (UA) Negative Urine Ketones Negative Urine Blood Negative Urine Nitrite Negative Ur Leukocyte Esterase Negative COVID-19 (ZAKI) COVID-19 Clin Com Influenza Type A (PARKER) Influenza Type B (PARKER) Influenza A & B Note Imaging Radiologist's Impressions: Impressions Cervical Spine CT 10/05/22 19:43 IMPRESSION: 1. No acute abnormality. 2. Advanced multilevel degenerative spondylosis of cervical spine. Fleischner guidelines were followed. Head CT 10/05/22 19:44 IMPRESSION: * Extracalvarial subcutaneous small hematoma along the right parietal bone. * No intracranial bleed. * No CT evidence of intracranial space-occupying mass, bleed or infarct. Chest X-Ray 10/05/22 21:25 IMPRESSION: Unremarkable examination. Assessment and Plan (1) Syncope: Status: Acute (2) Elevated troponin: Status: Acute Plan This is a 72-year-old with past medical history as mentioned above presents to the hospital with syncopal episode # syncope - cardiogenic versus neurogenic - no prodromal or postictal symptoms making cardiogenic cause a more likely etiology - will obtain echocardiogram - cardiology consulted - admit to telemetry # elevated troponin - possibly type 2 - no evidence of acute changes on EKG - no delta change - denies any chest pain - admit to telemetry # hypertension - stable - hold antihypertensives given soft BP # hypothyroidism - continue levothyroxine # myasthenia gravis - continue pyridostigmaine DVT prophylaxis: Early ambulation Quality Stroke Does the patient have a stroke diagnosis?: No VTE Prior VTE?: No VTE Risk Level:: Medical - low VTE Device Contraindication: Treatment Not Indicated VTE Drug Contraindication: Treatment Not Indicated
[2022-10-06 00:04] VITALS: BP 104/51; PULSE 64; RESP 18; TEMP 36.9; O2SAT 94
--- NOTE | 2022-10-06 03:29 | PC.NURSE ---
assumed care of this patient. patient is sleeping. chest rise and fall equal and unlabored. NSR on the release engineer. call abraham within reach
[2022-10-06 05:18] VITALS: BP 121/67; PULSE 67; RESP 18; TEMP 37; O2SAT 94
[2022-10-06 06:34] LABS: MANUAL DIFF FLAG NO
[2022-10-06 06:37] LABS: Basophils Absolute Auto 0.1 X10*3/uL (0.0-0.2); Basophils Percent Auto 0.5 % (0-2); Eosinophils Absolute Auto 0.5 X10*3/uL (0.0-0.4); Eosinophils Percent Auto 5.2 % (0-4); Hemoglobin 13.9 g/dl (14.0-18.0); Imm Gran Abs Auto 0.03 X10*3/uL (0.00-0.03); Imm Gran Pct Auto 0.3 % (0.0-0.4); Lymphocytes Absolute Auto 1.5 X10*3/uL (1.2-4.9); Lymphocytes Percent Auto 14.7 % (20-40); Mean Corpuscular HGB Conc 32.3 g/dl (31.0-36.0); Mean Corpuscular Hemoglobin 27.2 pg (27.0-33.0); Mean Corpuscular Volume 84.1 fL (80.0-98.0); Mean Platelet Volume 10.3 fL (9.4-12.4); Monocytes Percent Auto 9.3 % (2-11); Neutrophils Absolute Auto 7.1 x10*3/uL (2.0-8.3); Platelet Count 236 X10*3/uL (160-400); Red Blood Count 5.11 X10*6/uL (4.60-5.80); Red Cell Distribution Width 14.2 % (11.0-16.0); White Blood Count 10.2 X10*3/uL (4.8-10.8)
--- NOTE | 2022-10-06 06:43 | PC.NURSE ---
nurse to nurse report given to [facility]
[2022-10-06 06:57] LABS: Anion Gap 12 (12-20); Blood Urea Nitrogen 25 mg/dL (9-16); Calcium 8.9 mg/dL (8.4-10.2); Carbon Dioxide 23 mmol/L (22-29); Chloride 103 mmol/L (96-108); Creatinine Clr Calc Pharmacy 103.1; Estimated Glomerular Filt Rate > 60; Glucose Random 92 mg/dL (60-115); Sodium 134 mmol/L (135-145)
--- NOTE | 2022-10-06 07:49 | PHA.MEDREC ---
Pharmacy Consult ? Medication Reconciliation Pharmacy has completed the medication reconciliation.
--- NOTE | 2022-10-06 09:33 | MHC.CM.PN ---
CM met with Patient at bedside and addressed MORENO with him, providing him with the original and placing a copy on the chart. Patient lives with his Girlfriend on the first floor of a 2 family house, with his Girlfriend's family living on the second floor. Patient uses a cane to assist with mobility and home, self care is the goal. CM has initiated and will follow for dc planning. 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 Patient has received Moderna/Covid vax 3 and his PCP is Dr. Gifty Frankel.
[2022-10-06 09:37] VITALS: BP 127/72; PULSE 78; RESP 17; TEMP 36.8; O2SAT 99
[2022-10-06 10:39] VITALS: BP 120/68; PULSE 88; RESP 17; TEMP 37.1; O2SAT 99
[2022-10-06] MEDS: Atorvastatin Calcium 20 MG TABLET PO (10:52)
[2022-10-06] MEDS: lisinopriL 20 MG TABLET PO (10:52)
[2022-10-06] MEDS: Omeprazole 20 MG CAPSULE.DR PO (10:52)
[2022-10-06] MEDS: Isosorbide Mononitrate 30 MG TAB.ER.24H PO (10:52)
[2022-10-06] MEDS: Finasteride 5 MG TABLET PO (10:53)
[2022-10-06] MEDS: Multivitamin TABLET 1 TAB PO (10:53)
[2022-10-06] MEDS: pyRIDostigmine bromide 60 MG TABLET PO (10:53)
[2022-10-06 11:00] VITALS: BP 124/70; PULSE 57
[2022-10-06 11:06] VITALS: BP 120/73; BP 123/77; PULSE 62; PULSE 65
--- NOTE | 2022-10-06 12:10 | P.CONCA_ITS ---
History of Present Illness History of Present Illness Date of Service: 10/06/22 Requesting physician: Ruben Conde Chief complaint: syncope Narrative: 72-year-old gentleman presenting with syncope. He has known history of orthostasis in the past. He has complexes she will otherwise including COPD, hypertension, hyperlipidemia, gastroesophageal reflux disease as well as myasthenia gravis. He had bifascicular block on his EKG previously and was complaining of dyspnea on exertion for which he underwent stress testing which did not reveal any issues. Our plan was to do invasive testing but he was more in favor of noninvasive workup and we decided to a coronary CTA which is still pending. Unfortunately his had a stroke and has been completely dependent on him for care. He has not been taking care of himself and not eating and drinking normally. Yesterday visiting nurse was coming to see his . When she rang the abraham he ran to the door and as he got up quickly he started feeling dizzy and lightheaded and while walking to the door he passed out for few seconds. He said the nurse checked his blood pressure and it was initially low at 100 systolic and improved afterwards. He was able to walk and was not dizzy and was advised to go to the ER. He came to the emergency department and was admitted for further care. Here orthostatic vital signs done today and they are normal. He is denying any symptoms. [facility] Past Medical History Medical History Abdominal pain Arthritis Back pain Chronic pain syndrome COPD (chronic obstructive pulmonary disease) COPD (chronic obstructive pulmonary disease) Degenerative disc disease, lumbar Diastolic dysfunction Disc degeneration, lumbar JULIEN (dyspnea on exertion) Emphysema of lung GERD (gastroesophageal reflux disease) Hyperglycemia Hyperlipidemia Hypertension Hypothyroid Iatrogenic adrenal insufficiency Iron deficiency anemia Left inguinal hernia Leg cramps Multinodular thyroid Myasthenia gravis Osteoarthritis Preop cardiovascular exam Pulmonary nodule 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 Mother No problems noted. Surgical History Surgical History History of colonoscopy History of hydrocelectomy History of left inguinal hernia repair History of lung surgery (~11/2020) History of total right hip arthroplasty (~02/2018) Hx of tonsillectomy S/P insertion of spinal cord stimulator Social History Social History Household Members: Spouse Housing: House Are you a primary hospice spiritual care coordinator to a significant other at home: No Do you presently have visiting nurse or other home services: Yes Alcohol intake: never Patient Tobacco Use Status: Never used Tobacco e-Cigarette/Vaping Use: Never Used Second Hand Smoke Exposure: No service: No Current occupational status: retired Current occupation: right handed Meds Allergies Allergy/AdvReac Type Severity Reaction Status Date / Time No Known Allergies Allergy Verified 09/23/22 12:05 [No Known Allergies*] Active Medications: Current Medications Acetaminophen (Acetaminophen 325 Mg Tablet) 650 mg PO Q6H PRN PRN Reason: Pain, Mild (Pain Scale 1-3) Albuterol Sulfate (Albuterol Sulfate 90 Mcg 8 Gm Inhaler) 2 puff INHALE Q4H PRN PRN Reason: Wheezing Atorvastatin Calcium (Atorvastatin Calcium 20 Mg Tablet) 20 mg PO DAILY [facility] Last Admin: 10/06/22 10:52 Dose: 20 mg Cyclobenzaprine HCl (Cyclobenzaprine Hcl 10 Mg Tablet) 10 mg PO BID PRN PRN Reason: muscle spasm Docusate Sodium (Docusate Sodium 100 Mg Capsule) 100 mg PO DAILY PRN PRN Reason: Constipation Finasteride (Finasteride 5 Mg Tablet) 5 mg PO DAILY [facility] Last Admin: 10/06/22 10:53 Dose: 5 mg Imipramine HCl (Imipramine Hcl 50 Mg Tablet) 25 mg PO BEDTIME [facility] Isosorbide Mononitrate (Isosorbide Mononitrate 30 Mg Tab.Er.24h) 30 mg PO DAILY [facility]; Protocol Last Admin: 10/06/22 10:52 Dose: 30 mg Levothyroxine Sodium (Levothyroxine Sodium 50 Mcg Tablet) 50 mcg PO DAILY@0600 [facility] Last Admin: 10/06/22 10:53 Dose: Not Given Lisinopril (Lisinopril 20 Mg Tablet) 20 mg PO DAILY [facility]; Protocol Last Admin: 10/06/22 10:52 Dose: 20 mg Multivitamins/Vitamin C (Multivitamin Tablet) 1 tab PO DAILY [facility] Last Admin: 10/06/22 10:53 Dose: 1 tab Nitroglycerin (Nitroglycerin 0.4 Mg Tab.Subl) 0.4 mg SUBLINGUAL Q5M PRN PRN Reason: chest pain Non-Formulary Medication (Tiotropium-Olodaterol [Stiolto Respimat]) 2 puff PO DAILY [facility] Nystatin/Triamcinolone Acetonide (Nystatin/Triamcinolone Cream 15 Gm Tube) 1 appl TOPICAL DAILY [facility] Omeprazole (Omeprazole 20 Mg Capsule.Dr) 20 mg PO DAILY@0630 [facility] Last Admin: 10/06/22 10:52 Dose: 20 mg Ondansetron HCl (Ondansetron Hcl 4 Mg/2 Ml Vial) 4 mg IVPUSH Q8H PRN PRN Reason: Nausea and Vomiting Pyridostigmine [place] (Pyridostigmine [place] 60 Mg Tablet) 60 mg PO TID [facility] Last Admin: 10/06/22 10:53 Dose: 60 mg Sodium Chloride (0.9 % Sodium Chloride Flush 3 Ml Syringe) [facility] Last Admin: 10/06/22 10:17 Dose: Not Given Home Medications Medication Instructions Recorded Confirmed Last Taken Type clotrimazole-betamethasone 1 1 applic topical DAILY 08/18/20 10/05/22 Unknown History %-0.05 % topical cream acetaminophen 325 mg tablet 650 mg PO Q6H PRN Pain 08/28/20 10/05/22 10/04/22 History (Tylenol) multivitamin 1 cap PO DAILY 08/28/20 10/05/22 10/04/22 History pyridostigmine bromide 60 mg tablet 60 mg PO TID 01/27/21 10/05/22 10/04/22 History docosahexaenoic acid (dha)-epa 1 cap PO DAILY 10/18/21 10/05/22 10/04/22 History capsule prednisone 2.5 mg tablet mg PO 05/12/22 09/23/22 Unknown History lisinopril 20 mg tablet 1 tab PO DAILY 10/05/22 10/05/22 10/04/22 History Physical Exam Vital Signs: Vital Signs: Last Vital Signs Temp 98.7 F 10/06/22 10:39 Pulse 65 10/06/22 11:06 Resp 17 10/06/22 10:39 BP 123/77 10/06/22 11:06 Pulse Ox 99 10/06/22 10:39 O2 Del Method 10/06/22 10:39 BMI result Body Mass Index 31.1 GENERAL APPEARANCE: in no acute distress, pleasant. NECK: no carotid bruit, no jugular venous distention. SKIN: no suspicious lesions, warm and dry. HEART: no murmurs, regular rate and rhythm. LUNGS: clear to auscultation bilaterally. ABDOMEN: soft, nontender. EXTREMITIES: no edema. PERIPHERAL PULSES: equal. NEUROLOGIC: No gross deficits, AAO X 3 Objective Labs and Meds Result diagrams: 10/06/22 06:30 10/06/22 06:30 Lab results: Laboratory Results - last 24 hr 10/05/22 10/05/22 10/05/22 17:04 17:04 17:04 WBC 11.0 H RBC 5.12 Hgb 14.0 Hct 42.8 MCV 83.6 MCH 27.3 MCHC 32.7 RDW 14.2 Plt Count 262 MPV 10.2 Immature Gran % (Auto) 0.5 H Neut % (Auto) 74.8 H Lymph % (Auto) 12.6 L [place] % (Auto) 7.9 Eos % (Auto) 3.7 Baso % (Auto) 0.5 Lymph # (Auto) 1.4 [place] # (Auto) 0.9 Eos # (Auto) 0.4 Baso # (Auto) 0.1 Abs Immat Gran (auto) 0.05 H Absolute Neuts (auto) 8.2 Absolute Nucleated RBC 0.000 Nucleated RBC % (auto) 0.0 PT 13.8 H INR 1.2 H APTT 29.5 Sodium 133 L Potassium 4.5 Chloride 101 Carbon Dioxide 22 Anion Gap 15 BUN 26 H Creatinine 1.14 Estim Creat Clear Calc 74.2 Estimated GFR > 60 Random Glucose 97 Calcium 9.0 Total Bilirubin 0.5 AST 27 ALT 23 Alkaline Phosphatase 115 Troponin I High Sens Total Protein 6.8 Albumin 4.1 Urine Color Urine Appearance Urine pH Ur Specific [place] Urine Protein Urine Glucose (UA) Urine Ketones Urine Blood Urine Nitrite Ur Leukocyte Esterase COVID-19 (ZAKI) COVID-19 Clin Com Influenza Type A (PARKER) Influenza Type B (PARKER) Influenza A & B Note 10/05/22 10/05/22 10/05/22 17:04 17:04 17:04 WBC RBC Hgb Hct MCV MCH MCHC RDW Plt Count MPV Immature Gran % (Auto) Neut % (Auto) Lymph % (Auto) [place] % (Auto) Eos % (Auto) Baso % (Auto) Lymph # (Auto) [place] # (Auto) Eos # (Auto) Baso # (Auto) Abs Immat Gran (auto) Absolute Neuts (auto) Absolute Nucleated RBC Nucleated RBC % (auto) PT INR APTT Sodium Potassium Chloride Carbon Dioxide Anion Gap BUN Creatinine Estim Creat Clear Calc Estimated GFR Random Glucose Calcium Total Bilirubin AST ALT Alkaline Phosphatase Troponin I High Sens 57.0 H Total Protein Albumin Urine Color Urine Appearance Urine pH Ur Specific [place] Urine Protein Urine Glucose (UA) Urine Ketones Urine Blood Urine Nitrite Ur Leukocyte Esterase COVID-19 (ZAKI) Negative COVID-19 Clin Com See Note Influenza Type A (PARKER) Negative Influenza Type B (PARKER) Negative Influenza A & B Note See Note 10/05/22 10/05/22 10/06/22 21:09 21:41 06:30 WBC 10.2 RBC 5.11 Hgb 13.9 L Hct 43.0 MCV 84.1 MCH 27.2 MCHC 32.3 RDW 14.2 Plt Count 236 MPV 10.3 Immature Gran % (Auto) 0.3 Neut % (Auto) 70.0 Lymph % (Auto) 14.7 L [place] % (Auto) 9.3 Eos % (Auto) 5.2 H Baso % (Auto) 0.5 Lymph # (Auto) 1.5 [place] # (Auto) 1.0 Eos # (Auto) 0.5 H Baso # (Auto) 0.1 Abs Immat Gran (auto) 0.03 Absolute Neuts (auto) 7.1 Absolute Nucleated RBC 0.000 Nucleated RBC % (auto) 0.0 PT INR APTT Sodium Potassium Chloride Carbon Dioxide Anion Gap BUN Creatinine Estim Creat Clear Calc Estimated GFR Random Glucose Calcium Total Bilirubin AST ALT Alkaline Phosphatase Troponin I High Sens 68.8 H Total Protein Albumin Urine Color Yellow Urine Appearance Clear Urine pH 5.5 Ur Specific [place] 1.025 Urine Protein Negative Urine Glucose (UA) Negative Urine Ketones Negative Urine Blood Negative Urine Nitrite Negative Ur Leukocyte Esterase Negative COVID-19 (ZAKI) COVID-19 Clin Com Influenza Type A (PARKER) Influenza Type B (PARKER) Influenza A & B Note 10/06/22 06:30 WBC RBC Hgb Hct MCV MCH MCHC RDW Plt Count MPV Immature Gran % (Auto) Neut % (Auto) Lymph % (Auto) [place] % (Auto) Eos % (Auto) Baso % (Auto) Lymph # (Auto) [place] # (Auto) Eos # (Auto) Baso # (Auto) Abs Immat Gran (auto) Absolute Neuts (auto) Absolute Nucleated RBC Nucleated RBC % (auto) PT INR APTT Sodium 134 L Potassium 4.0 Chloride 103 Carbon Dioxide 23 Anion Gap 12 BUN 25 H Creatinine 0.82 Estim Creat Clear Calc 103.1 Estimated GFR > 60 Random Glucose 92 Calcium 8.9 Total Bilirubin AST ALT Alkaline Phosphatase Troponin I High Sens Total Protein Albumin Urine Color Urine Appearance Urine pH Ur Specific [place] Urine Protein Urine Glucose (UA) Urine Ketones Urine Blood Urine Nitrite Ur Leukocyte Esterase COVID-19 (ZAKI) COVID-19 Clin Com Influenza Type A (PARKER) Influenza Type B (PARKER) Influenza A & B Note Imaging Radiologist's impression: Impressions Cervical Spine CT 10/05/22 19:43 IMPRESSION: 1. No acute abnormality. 2. Advanced multilevel degenerative spondylosis of cervical spine. Fleischner guidelines were followed. Head CT 10/05/22 19:44 IMPRESSION: * Extracalvarial subcutaneous small hematoma along the right parietal bone. * No intracranial bleed. * No CT evidence of intracranial space-occupying mass, bleed or infarct. Chest X-Ray 10/05/22 21:25 IMPRESSION: Unremarkable examination. Assessment and Plan (1) Syncope: Status: Acute Plan [age] gentleman with bifascicular block and chronic dyspnea on exertion was here with syncope. It appears he changes posture quickly and developed lightheadedness and then passed out. He previously had orthostatic hypotension. There is no arrhythmia noticed. He is denying chest pain or shortness of breath currently. His biomarkers are minimally abnormal but there is no rise and fall in troponin level. I think he can return home. I thing isosorbide mononitrate should be discontinued for now. I have advised him that he needs to eat and drink normally and take care of himself as he has to be available for his unfortunately after her stroke and disability. Our plan was to do a coronary CTA on him as outpatient and we will still pursue the same plan. Thank you for allowing me to participate in the care of your patient. Please feel free to contact me if you have any questions. Procedures Date of Service Date of Service: 10/06/22
--- NOTE | 2022-10-06 13:04 | P.DS_ITS ---
DS: Providers Provider Date of Service: 10/06/22 Date of admission: 10/05/22 22:33 Primary care physician: Gifty Frankel MD Consults: 10/06/22 06:44 Consult to Cardiology Routine Consulting Provider: Giorgio Lares Reason for consultation: Syncope Has provider been notified: No DS: Diagnosis Discharge Diagnosis (1) Syncope: Status: Acute (2) Bifascicular block: Status: Acute (3) Chronic dyspnea: Status: Acute (4) Myasthenia gravis: Status: Acute DS: Summary Hospital Course Hospital Course: HPI: 72-year-old male with past medical history of COPD, diastolic heart failure, dyspnea on exertion, hyperlipidemia, HTN, hypothyroidism, myasthenia gravis, GERD presents to the hospital after syncopal episode witnessed by home health nurse.? Patient reports that he takes care of his after she had a stroke, he reports that he has a visiting nurse that comes to evaluate his , he was laying in bed waiting for the nurse to arrive.? On arrival of the nurse, patient got up out of bed to open the door for her and after taking about 10-12 steps collapsed.? Patient reports that he was completely unconscious for probably 2nd, regained full consciousness after that, with no confusion.? This syncopal episode was witnessed by the nurse on the other side of the door.? Eighty reports no recollection of hitting his head although he was told by the visiting nurse that he did hit his head.? Patient denies any headache at this time, no change in vision, no palpitations, no chest pain, reports no prodromal or postictal symptoms.? Reports 1 similar episode about a year ago, he reports that he was evaluated at an outside hospital and no etiology was found. Patient denies any recent acute infection or illness.? He reports good oral intake.? Patient has chronic dyspnea on exertion which was 1 of the reasons he is being evaluated by Cardiology for underlying coronary artery disease. On arrival to the ED patient hemodynamically stable with a slightly low blood pressure of 99/59 Labs are significant for WBC count of 11, labs otherwise unremarkable, he had a troponin of 57 that increased to 60.8, UA negative EKG showed nonspecific ST T wave abnormalities, patient has T-wave inversions on that lead 3 which was present on previous EKG Chest x-ray is unremarkable exam Head CT shows extricate the calvaria subcutaneous small hematoma along the right parietal bone No intracranial bleed, no CT evidence of intracranial space-occupying mass, bleed, or infarct Hospital course: Patient was admitted with telemonitor. Evaluated by cardiology in am with the following assessment: [age] gentleman with bifascicular block and chronic dyspnea on exertion was here with syncope.? It appears he changes posture quickly and developed lightheadedness and then passed out.? He previously had orthostatic hypotension.? There is no arrhythmia noticed.? He is denying chest pain or shortness of breath currently.? His biomarkers are minimally abnormal but there is no rise and fall in troponin level.? I think he can return home.? I thing isosorbide mononitrate should be discontinued for now.? I have advised him that he needs to eat and drink normally and take care of himself as he has to be available for his unfortunately after her stroke and disability.? Our plan was to do a coronary CTA on him as outpatient and we will still pursue the same plan Patient was given 500cc normal saline prior to discharge. Will d/c imdur. Time Spent with Patient Time attestation: Total time spent providing and/or coordinating discharge services: Discharge coordination time: Less than 30 minutes Quality: Safe Use of Opioids Does Pt have an Active Cancer Diagnosis on the Problem List?: No Quality: Stroke Does the patient have a stroke diagnosis?: No Physical Exam Vital Signs: Vital Signs: Last Vital Signs Temp 98.7 F 10/06/22 10:39 Pulse 65 10/06/22 11:06 Resp 17 10/06/22 10:39 BP 123/77 10/06/22 11:06 Pulse Ox 99 10/06/22 10:39 O2 Del Method 10/06/22 10:39 BMI result Body Mass Index 31.1 Const:?? Other: Patient popeye rt oriented x3,? G eneral: cooperativ e and no acute dis tress? Orientation /consciousness: pa tient oriented x3 HEENT:?? Other: No evidence of large hematoma on exam of the he ad and neck Eyes:?? General: appearanc e normal, both eye s and all related structures Resp:?? Effort & Inspectio n: normal respirat ory effort? Auscul tation: clear to a uscultation bilate rally Cardio:?? Rate: regular rate ? Rhythm: regular rhythm GI:?? Palpation (GI): So ft to palpation? A uscultation: liam l bowel sounds Skin:?? General skin exam: no rashes or lesi ons noted Neuro:?? General: patient o riented x3? Cognit ion (Neuro): liam l cognition Extrem:?? General: Yes liam l to inspection an d Yes no pedal estella theo DS: Data Data Completed and Pending Labs on day of discharge: Laboratory Results - last 24 hr 10/05/22 10/05/22 10/05/22 17:04 17:04 17:04 WBC 11.0 H RBC 5.12 Hgb 14.0 Hct 42.8 MCV 83.6 MCH 27.3 MCHC 32.7 RDW 14.2 Plt Count 262 MPV 10.2 Immature Gran % (Auto) 0.5 H Neut % (Auto) 74.8 H Lymph % (Auto) 12.6 L [place] % (Auto) 7.9 Eos % (Auto) 3.7 Baso % (Auto) 0.5 Lymph # (Auto) 1.4 [place] # (Auto) 0.9 Eos # (Auto) 0.4 Baso # (Auto) 0.1 Abs Immat Gran (auto) 0.05 H Absolute Neuts (auto) 8.2 Absolute Nucleated RBC 0.000 Nucleated RBC % (auto) 0.0 PT 13.8 H INR 1.2 H APTT 29.5 Sodium 133 L Potassium 4.5 Chloride 101 Carbon Dioxide 22 Anion Gap 15 BUN 26 H Creatinine 1.14 Estim Creat Clear Calc 74.2 Estimated GFR > 60 Random Glucose 97 Calcium 9.0 Total Bilirubin 0.5 AST 27 ALT 23 Alkaline Phosphatase 115 Troponin I High Sens Total Protein 6.8 Albumin 4.1 Urine Color Urine Appearance Urine pH Ur Specific [place] Urine Protein Urine Glucose (UA) Urine Ketones Urine Blood Urine Nitrite Ur Leukocyte Esterase COVID-19 (ZAKI) COVID-19 Clin Com Influenza Type A (PARKER) Influenza Type B (PARKER) Influenza A & B Note 10/05/22 10/05/22 10/05/22 17:04 17:04 17:04 WBC RBC Hgb Hct MCV MCH MCHC RDW Plt Count MPV Immature Gran % (Auto) Neut % (Auto) Lymph % (Auto) [place] % (Auto) Eos % (Auto) Baso % (Auto) Lymph # (Auto) [place] # (Auto) Eos # (Auto) Baso # (Auto) Abs Immat Gran (auto) Absolute Neuts (auto) Absolute Nucleated RBC Nucleated RBC % (auto) PT INR APTT Sodium Potassium Chloride Carbon Dioxide Anion Gap BUN Creatinine Estim Creat Clear Calc Estimated GFR Random Glucose Calcium Total Bilirubin AST ALT Alkaline Phosphatase Troponin I High Sens 57.0 H Total Protein Albumin Urine Color Urine Appearance Urine pH Ur Specific [place] Urine Protein Urine Glucose (UA) Urine Ketones Urine Blood Urine Nitrite Ur Leukocyte Esterase COVID-19 (ZAKI) Negative COVID-19 Clin Com See Note Influenza Type A (PARKER) Negative Influenza Type B (PARKER) Negative Influenza A & B Note See Note 10/05/22 10/05/22 10/06/22 21:09 21:41 06:30 WBC 10.2 RBC 5.11 Hgb 13.9 L Hct 43.0 MCV 84.1 MCH 27.2 MCHC 32.3 RDW 14.2 Plt Count 236 MPV 10.3 Immature Gran % (Auto) 0.3 Neut % (Auto) 70.0 Lymph % (Auto) 14.7 L [place] % (Auto) 9.3 Eos % (Auto) 5.2 H Baso % (Auto) 0.5 Lymph # (Auto) 1.5 [place] # (Auto) 1.0 Eos # (Auto) 0.5 H Baso # (Auto) 0.1 Abs Immat Gran (auto) 0.03 Absolute Neuts (auto) 7.1 Absolute Nucleated RBC 0.000 Nucleated RBC % (auto) 0.0 PT INR APTT Sodium Potassium Chloride Carbon Dioxide Anion Gap BUN Creatinine Estim Creat Clear Calc Estimated GFR Random Glucose Calcium Total Bilirubin AST ALT Alkaline Phosphatase Troponin I High Sens 68.8 H Total Protein Albumin Urine Color Yellow Urine Appearance Clear Urine pH 5.5 Ur Specific [place] 1.025 Urine Protein Negative Urine Glucose (UA) Negative Urine Ketones Negative Urine Blood Negative Urine Nitrite Negative Ur Leukocyte Esterase Negative COVID-19 (ZAKI) COVID-19 Clin Com Influenza Type A (PARKER) Influenza Type B (PARKER) Influenza A & B Note 10/06/22 06:30 WBC RBC Hgb Hct MCV MCH MCHC RDW Plt Count MPV Immature Gran % (Auto) Neut % (Auto) Lymph % (Auto) [place] % (Auto) Eos % (Auto) Baso % (Auto) Lymph # (Auto) [place] # (Auto) Eos # (Auto) Baso # (Auto) Abs Immat Gran (auto) Absolute Neuts (auto) Absolute Nucleated RBC Nucleated RBC % (auto) PT INR APTT Sodium 134 L Potassium 4.0 Chloride 103 Carbon Dioxide 23 Anion Gap 12 BUN 25 H Creatinine 0.82 Estim Creat Clear Calc 103.1 Estimated GFR > 60 Random Glucose 92 Calcium 8.9 Total Bilirubin AST ALT Alkaline Phosphatase Troponin I High Sens Total Protein Albumin Urine Color Urine Appearance Urine pH Ur Specific [place] Urine Protein Urine Glucose (UA) Urine Ketones Urine Blood Urine Nitrite Ur Leukocyte Esterase COVID-19 (ZAKI) COVID-19 Clin Com Influenza Type A (PARKER) Influenza Type B (PARKER) Influenza A & B Note Imaging Chest x-ray: Radiologist's impression: ITS Impressions Cervical Spine CT 10/05/22 19:43 IMPRESSION: 1. No acute abnormality. 2. Advanced multilevel degenerative spondylosis of cervical spine. Fleischner guidelines were followed. Head CT 10/05/22 19:44 IMPRESSION: * Extracalvarial subcutaneous small hematoma along the right parietal bone. * No intracranial bleed. * No CT evidence of intracranial space-occupying mass, bleed or infarct. Chest X-Ray 10/05/22 21:25 IMPRESSION: Unremarkable examination. Discharge Plan Discharge Anticipated Discharge Date/Time: 10/06/22 14:11 Patient Disposition: Home, Self-Care Discharge Diagnosis: Syncope, likely orthostatic Referrals: Gifty Frankel MD [Primary Care Provider] - 1 Week Discharge Medications: Continued nitroglycerin 0.4 mg tablet, sublingual 0.4 mg sublingual Q5M PRN (Reason: chest pain) Qty: 30 0RF Rx Instructions: do not exceed 3 doses per episode albuterol sulfate [Ventolin HFA] 90 mcg/actuation HFA aerosol inhaler 2 puff inhalation Q4-6H PRN (Reason: Wheezing) Qty: 18 0RF finasteride 5 mg tablet 5 mg PO DAILY 90 Days Qty: 90 2RF levothyroxine 50 mcg tablet 50 mcg PO DAILY 30 Days Qty: 30 3RF atorvastatin 20 mg tablet 20 mg PO DAILY Qty: 90 3RF Stiolto Respimat 2.5-2.5 mcg/actuation mist 2 puff PO DAILY Qty: 4 3RF omeprazole 20 mg capsule,delayed release(DR/EC) 20 mg PO DAILY Qty: 90 1RF acetaminophen [Tylenol] 325 mg Tablet 650 mg PO Q6H PRN (Reason: Pain) multivitamin Capsule 1 cap PO DAILY docosahexaenoic acid-epa Capsule 1 cap PO DAILY ibuprofen 600 mg tablet 600 mg PO Q6H PRN (Reason: pain) Qty: 25 0RF lisinopril 20 mg tablet 1 tab PO DAILY cyclobenzaprine 10 mg tablet 10 mg PO BID PRN (Reason: muscle spasm) Qty: 20 0RF clotrimazole-betamethasone 1-0.05 % cream 1 applic topical DAILY pyridostigmine bromide 60 mg tablet 60 mg PO TID imipramine HCl 25 mg tablet 25 mg PO BEDTIME 90 Days Qty: 90 1RF prednisone 2.5 mg tablet PO Discontinued isosorbide mononitrate 30 mg tablet extended release 24 hr 30 mg PO DAILY Qty: 90 3RF Discharge Orders: Discharge Order (Routine); Ordered 10/06/22 Ordered By: Ruben Conde Diet: Low salt diet Activity on Discharge: As tolerated Stand Alone Forms: Patient Portal Discharge page Care Plan Goals: Follow up with cardiology Health Concerns: Orthostatic hypotension Bifascicular block Plan of Treatment: Discontinue imdur Maintain adequate po intake Assessment: as per summary
[2022-10-06] MEDS: 0.9 % Sodium Chloride 500 ML IV (13:22)
--- NOTE | 2022-10-06 13:44 | MHC.CM.PN ---
Patient has been medically cleared for dc to home today, self care.
== END 2022-10-06 16:06 | disposition home or self-care (01) ==
LOC: HO.ED 22:29 → HO.EDOVER 22:42 → HO.IMC 10-06 06:52
PROVIDERS: Emergency Medicine Emergency Medical Services; Admitting Provider Internal Medicine; Emergency Provider Student in an Organized Health Care Education/Training Program; PCP Internal Medicine; Visit Provider Student in an Organized Health Care Education/Training Program
DX: R77.8 Other specified abnormalities of plasma proteins (principal); G70.00 Myasthenia gravis without (acute) exacerbation; R06.09 Other forms of dyspnea; I45.2 Bifascicular block; R55 Syncope and collapse; R51.9 Headache, unspecified; M54.2 Cervicalgia; R06.02 Shortness of breath; Z20.822 Contact with and (suspected) exposure to COVID-19; Z79.899 Other long term (current) drug therapy; Z79.61 Long term (current) use of immunomodulator; Z79.82 Long term (current) use of aspirin
CPT/HCPCS: 36415; 70450; 71045; 72125; 80048; 80053; 81003; 84484; 85025; 85610; 85730; 87502; 87635; 93005; 96374; 99219; 99285; Q9957

== ENCOUNTER → 2022-10-13 09:02 | Outpatient (BNVA) | payer MEDICARE, MEDICAID, SELFPAY | PROVIDERS: PCP Internal Medicine; Referring Provider Internal Medicine; Visit Provider Surgery | DX: R10.32 Left lower quadrant pain (principal) | CPT/HCPCS: 99212 ==

== ENCOUNTER 2022-10-24 11:35 | Day surgery (SDC) | payer MEDICARE, MEDICAID, SELFPAY ==
[2022-10-24 11:59] VITALS: BMI 30.9
--- NOTE | 2022-10-24 13:24 | MHC.SHP ---
Pre-Procedural Eval Section A Date of Service: 10/24/22 The patient is an INPATIENT: No Changes since office visit: No Cold of Flu in the past 2 weeks, No New Medical Problems, No Changes in Medication and No Patient answered all questions The History & Physical has been completed within 30 days and I have reviewed it.: Yes Section B Chief Complaint: Carpal tunnel syndrome, left upper limb Allergies: Allergies Allergy/AdvReac Type Severity Reaction Status Date / Time No Known Allergies Allergy Verified 10/20/22 10:27 [No Known Allergies*] Plan I have reviewed the history and physical and performed a pertinent physical examination on my patient. No changes have occurred unless specified. Time Spent With Patient Time: Total time managing care of this patient today ____ minutes.
--- NOTE | 2022-10-24 13:42 | W.PM.OPN ---
Operative Note Operative Note Date of Service: 10/24/22 Narrative: Preop diagnosis: 1. Left Carpal tunnel syndrome Postop diagnosis: same Procedure: 1. Left Carpal tunnel release Surgeon: Catrina Collins MD Anesthesia: local block using 1% lidocaine with epinephrine Findings: Thickened transverse carpal ligament. EBL: Less than 5 mL Specimens: None Complications: None Disposition: Brought to recovery room in stable condition Plan: Follow-up for 10-14 days for wound check and suture removal Indications: The patient is 72 years old, with left carpal tunnel syndrome that has been unresponsive to nonoperative management. The risks and benefits of operative treatment including but not limited to risk of damage to blood vessels, nerves, tendons, infection, persistent pain, persistent symptoms, or possible need for additional surgery were discussed with the patient and the patient wishes to proceed with surgery. Procedure: Once consent was obtained a local block was performed using a combination of 1% lidocaine with epinephrine. The patient was then brought back to the operating suite and placed on the operative table in supine position. A tourniquet was applied to the proximal aspect of the left upper extremity and the limb was prepped and draped in a standard surgical fashion. Once assured that we had a good block, a 2.0 cm longitudinal incision was made centered over the carpal tunnel. The incision was made through the skin to the subcutaneous tissues using a #15 blade. Dissection was made down to the level of the transverse carpal ligament with care being taken to protect the palmar cutaneous nerve. Once the transverse carpal ligament was clearly visualized, a longitudinal incision was made in the transverse carpal ligament 1st using a #15 blade, then using tenotomy scissors under direct visualization. Care was taken to look for and protect the motor branch of the median nerve when seen in this area. Once satisfied with our carpal tunnel release the wound was copiously irrigated with normal saline and hemostasis was obtained with a brief period of local pressure. The skin edges were reapproximated with some 5.0 nylon suture material and a sterile dressing was applied. The patient appears to have tolerated the procedure well and with no complications. All digits were well vascularized at the conclusion of the case.
[2022-10-24 13:44] VITALS: BP 106/52; PULSE 63; RESP 16; O2SAT 97
== END 2022-10-24 13:58 | disposition home or self-care (01) ==
PROVIDERS: PCP Internal Medicine; Visit Provider Orthopaedic Surgery
PROC: (CPT 64721; principal; 2022-10-24 14:20)
DX: G56.02 Carpal tunnel syndrome, left upper limb (principal); R20.0 Anesthesia of skin; R20.2 Paresthesia of skin; G89.4 Chronic pain syndrome; J44.9 Chronic obstructive pulmonary disease, unspecified
CPT/HCPCS: 64721; J0171

== ENCOUNTER → 2022-11-08 09:11 | Outpatient (BNVA) | payer MEDICARE, MEDICAID, SELFPAY | PROVIDERS: PCP Internal Medicine; Visit Provider Orthopaedic Surgery | DX: M65.312 Trigger thumb, left thumb (principal); G56.02 Carpal tunnel syndrome, left upper limb; Z98.890 Other specified postprocedural states | CPT/HCPCS: 20550; 99212; J1100 ==

== ENCOUNTER → 2022-11-10 14:06 | Outpatient (BNVA) | payer MEDICARE, MEDICAID, SELFPAY | PROVIDERS: PCP Internal Medicine; Visit Provider Nurse Practitioner Family | DX: R55 Syncope and collapse (principal); J44.9 Chronic obstructive pulmonary disease, unspecified; R06.00 Dyspnea, unspecified; I10 Essential (primary) hypertension | CPT/HCPCS: 99212 ==

== ENCOUNTER → 2022-12-07 07:35 | Outpatient (BNVA) | payer MEDICARE, MEDICAID, SELFPAY | PROVIDERS: PCP Internal Medicine; Visit Provider Internal Medicine | DX: J44.9 Chronic obstructive pulmonary disease, unspecified (principal); R91.1 Solitary pulmonary nodule; R06.00 Dyspnea, unspecified; E04.2 Nontoxic multinodular goiter; E03.9 Hypothyroidism, unspecified | CPT/HCPCS: 99212 ==

== ENCOUNTER 2022-12-12 11:56 | Outpatient (REF) | payer MEDICARE, MEDICAID, SELFPAY ==
--- NOTE | ~2022-12-12 | XR_ITS ---
EXAMINATION: XR BILATERAL HIPS WITH AP PELVIS CLINICAL INFORMATION: Left lower quadrant pain. COMPARISON: None. TECHNIQUE: 2 views of each hip. FINDINGS: Right Hip: There is a total hip prosthesis with prosthetic components in satisfactory alignment. No periprosthetic loosening or fracture seen. The soft tissues are normal. Left Hip: The left hip joint space is maintained normal. No acute fracture or dislocation. There is no sclerotic or lytic process seen. No bony erosive changes. The soft tissues are normal. XR/XR hips FRIDA min 3V IMPRESSION: 1. Total right hip prosthesis in satisfactory alignment. No periprosthetic loosening or fracture seen. 2. Unremarkable left hip exam. Total right hip prosthesis in satisfactory alignment. 3. Normal left hip exam.
== END 2022-12-12 11:57 | disposition home or self-care (01) ==
LOC: HO.HMGCX 11:56
PROVIDERS: PCP Internal Medicine; Visit Provider Internal Medicine
DX: R10.32 Left lower quadrant pain (principal)
CPT/HCPCS: 73522

== ENCOUNTER 2022-12-13 08:37 | Outpatient (REF) | payer MEDICARE, MEDICAID, SELFPAY ==
[2022-12-13 11:27] LABS: MANUAL DIFF FLAG NO
[2022-12-13 11:36] LABS: Basophils Absolute Auto 0.1 X10*3/uL (0.0-0.2); Basophils Percent Auto 0.7 % (0-2); Eosinophils Absolute Auto 0.6 X10*3/uL (0.0-0.4); Eosinophils Percent Auto 5.8 % (0-4); Hematocrit 45.1 % (42.0-52.0); Hemoglobin 14.4 g/dl (14.0-18.0); Imm Gran Abs Auto 0.06 X10*3/uL (0.00-0.03); Imm Gran Pct Auto 0.6 % (0.0-0.4); Lymphocytes Absolute Auto 1.6 X10*3/uL (1.2-4.9); Lymphocytes Percent Auto 15.3 % (20-40); Mean Corpuscular HGB Conc 31.9 g/dl (31.0-36.0); Mean Corpuscular Hemoglobin 27.6 pg (27.0-33.0); Mean Corpuscular Volume 86.6 fL (80.0-98.0); Monocytes Absolute Auto 0.9 X10*3/uL (0.1-1.2); Monocytes Percent Auto 8.4 % (2-11); Neutrophils Absolute Auto 7.1 x10*3/uL (2.0-8.3); Neutrophils Percent Auto 69.2 % (45-73); Platelet Count 242 X10*3/uL (160-400); Red Blood Count 5.21 X10*6/uL (4.60-5.80); Red Cell Distribution Width 14.9 % (11.0-16.0); White Blood Count 10.3 X10*3/uL (4.8-10.8)
[2022-12-13 12:10] LABS: Alanine Aminotransferase 23 U/L (0-40); Alkaline Phosphatase 119 U/L (39-117); Anion Gap 16 (12-20); Aspartate Amino Transferase 24 U/L (5-37); Bilirubin Total 0.6 mg/dL (0.0-1.0); Blood Urea Nitrogen 18 mg/dL (9-16); Calcium 9.2 mg/dL (8.4-10.2); Carbon Dioxide 22 mmol/L (22-29); Chloride 106 mmol/L (96-108); Cholesterol 132 mg/dL; Estimated Glomerular Filt Rate > 60; Glucose Fasting 91 mg/dL (60-99); HDL Cholesterol 40 mg/dL; LDL Cholesterol Calculated 66 mg/dl; Potassium 4.6 mmol/L (3.3-5.1); Sodium 139 mmol/L (135-145); Total Protein 6.6 g/dL (6.5-8.0); Triglycerides 130 mg/dL
[2022-12-13 12:13] LABS: Estimated Average Glucose 114 mg/dL; Hemoglobin A1c % 5.6 %
== END 2022-12-13 08:38 | disposition home or self-care (01) ==
LOC: HO.HMGCLDS 08:37
PROVIDERS: PCP Internal Medicine; Visit Provider Internal Medicine
DX: G70.00 Myasthenia gravis without (acute) exacerbation (principal); I10 Essential (primary) hypertension; J44.9 Chronic obstructive pulmonary disease, unspecified; R10.32 Left lower quadrant pain; R73.9 Hyperglycemia, unspecified; E78.5 Hyperlipidemia, unspecified
CPT/HCPCS: 36415; 80053; 80061; 83036; 85025

== ENCOUNTER → 2022-12-20 08:57 | Outpatient (BNVA) | payer MEDICARE, MEDICAID, SELFPAY | PROVIDERS: PCP Internal Medicine; Visit Provider Orthopaedic Surgery | DX: M65.312 Trigger thumb, left thumb (principal); M65.351 Trigger finger, right little finger | CPT/HCPCS: 99212 ==

== ENCOUNTER 2023-01-09 09:44 | Day surgery (SDC) | payer MEDICARE, MEDICAID, SELFPAY ==
[2023-01-09 10:25] VITALS: BMI 30.9
--- NOTE | 2023-01-09 12:55 | MHC.SHP ---
Pre-Procedural Eval Section A Date of Service: 01/09/23 The patient is an INPATIENT: No Changes since office visit: No Cold of Flu in the past 2 weeks, No New Medical Problems, No Changes in Medication and No Patient answered all questions The History & Physical has been completed within 30 days and I have reviewed it.: Yes Section B Chief Complaint: Trigger thumb, left thumb Allergies: Allergies Allergy/AdvReac Type Severity Reaction Status Date / Time No Known Allergies Allergy Verified 01/09/23 12:42 [No Known Allergies*] Plan I have reviewed the history and physical and performed a pertinent physical examination on my patient. No changes have occurred unless specified. Time Spent With Patient Time: Total time managing care of this patient today ____ minutes.
--- NOTE | 2023-01-09 12:55 | W.PM.OPN ---
Operative Note Operative Note Date of Service: 01/09/23 Narrative: Operative Note Preop diagnosis: 1. Left thumb Trigger finger Postop diagnosis: 1. Left thumb Trigger finger Procedure: 1. Left thumb A1 erin release Surgeon: Catrina Collins MD Anesthesia: local block using 1% lidocaine with epinephrine Findings: No locking or catching after A1 erin release EBL: Less than 5 mL Tourniquet time: None Specimens: None Complications: None Disposition: Brought to recovery room in stable condition Plan: Follow-up for 10-14 days for wound check and suture removal Indications: The patient is 72 years old, with a left thumb trigger finger that has been unresponsive to nonoperative management. The risks and benefits of operative treatment including but not limited to risk of damage to blood vessels, nerves, tendons, infection, persistent pain, persistent symptoms, recurrence or possible need for additional surgery were discussed with the patient and the patient wishes to proceed with surgery. Procedure: Once consent was obtained a local block was performed in the preop area using a combination of 1% lidocaine with epinephrine. The patient was then brought back to the operating suite and placed on the operative table in supine position. The left upper extremity was prepped and draped in a standard surgical fashion. Once assured that we had a good block, a 1.5 cm oblique incision was made centered over the A1 erin of the left thumb . The incision was made through the skin to the subcutaneous tissues using a #15 blade. Careful dissection was made down to the level of the A1 erin using tenotomy scissors, with care being taken to protect the nearby neurovascular structures. A longitudinal incision was made in the A1 erin 1st using a #15 blade, then using tenotomy scissors under direct visualization. The A1 erin was noted to be thickened. Following our A1 erin release, we no longer saw any locking or catching of the digit with flexion and extension. Once satisfied with our A1 erin release the wound was copiously irrigated with normal saline and hemostasis was obtained with a brief period of local pressure. The skin edges were reapproximated with some 5.0 nylon suture material and a sterile dressing was applied. The patient appears to have tolerated the procedure well and with no complications. All digits were well vascularized at the conclusion of the case.
[2023-01-09 15:08] VITALS: BP 118/71; PULSE 65; RESP 16; O2SAT 96
== END 2023-01-09 15:14 | disposition home or self-care (01) ==
PROVIDERS: PCP Internal Medicine; Visit Provider Orthopaedic Surgery
PROC: (CPT 26055; principal; 2023-01-09 12:10)
DX: M65.312 Trigger thumb, left thumb (principal); J44.9 Chronic obstructive pulmonary disease, unspecified; G89.4 Chronic pain syndrome; M47.27 Other spondylosis with radiculopathy, lumbosacral region; M51.36 Other intervertebral disc degeneration, lumbar region; M19.90 Unspecified osteoarthritis, unspecified site; I10 Essential (primary) hypertension; D50.9 Iron deficiency anemia, unspecified; Z98.890 Other specified postprocedural states
CPT/HCPCS: 26055; J0171

== ENCOUNTER → 2023-01-17 10:58 | Outpatient (BNVA) | payer MEDICARE, MEDICAID, SELFPAY | PROVIDERS: PCP Internal Medicine; Visit Provider Urology | DX: N32.81 Overactive bladder (principal); R35.1 Nocturia | CPT/HCPCS: 51798; 99212 ==

== ENCOUNTER → 2023-01-24 09:34 | Outpatient (BNVA) | payer MEDICARE, MEDICAID, SELFPAY | PROVIDERS: PCP Internal Medicine; Visit Provider Orthopaedic Surgery | DX: Z47.89 Encounter for other orthopedic aftercare (principal); M65.351 Trigger finger, right little finger; Z87.39 Personal history of other diseases of the musculoskeletal system and connective tissue; Z98.890 Other specified postprocedural states | CPT/HCPCS: 99212 ==

== ENCOUNTER 2023-02-01 10:00 | Outpatient (RCR) | payer MEDICARE, MEDICAID, SELFPAY ==
--- NOTE | 2023-01-05 11:33 | MHC.PT.EP ---
[facility] [place] Office [place] Office [place] Office [address] Carlos A Becerra [address] [phone] F: [phone] F: [phone] F: [phone] F: [phone] Physical Therapy Plan of Care Date of Evaluation: Date of Surgery: NA Diagnosis: L lower quadrant pain Assessment: Olegario is a 72 year old male with a h/o myasthenia gravis is referred to PT for L lower quadrant pain . He reports of having pain in L groin region following repair for inguinal hernia and per pt he was told by the surgeon that his pain is coming from the the vas deferens piercing through the mesh. He stated that his pain in L groin is better and would like to address R sided low back pain only today. On PT examination he reports of having 3-4 falls over the last 6 months, TTP over R SI, 8/10 pain over R SI with sitting to have a BM and sitting unsupported, decreased lumbar ROM, decreased R hip ROM, decreased strength, impaired posture, balance and gait. Due to these impairments he has pain with ADLS requiring him to sit unsupported. He would benefit from skilled PT to address the aforementioned impairments and improve tolerance to functional activities. Frequency and Duration: The patient will be seen 2/week for 4 weeks Short Term Goals: 1. Pt will have 50% decrease in pain which will enable him to have a BM without pain in 2 weeks. 2. Pt will be able to move his trunk through all planes of motion without pain which will enable him to dress his lower body without pain in 3 weeks Metaphysicist Goals: 1. Pt will present with increase in muscle strength by 1 grade which will enable to him to tolerate sitting, sit to standing and standing without pain in 4 weeks. 2. Pt will be independent with HEP for symptom management and maintenance following d/c in 4 weeks. Treatment Plan: Modalities to reduce pain, spasms and effusion. Manual therapy to restore motion and function. Therapeutic exercise to improve strength and flexibility. Neuromuscular re-education for posture and balance. Therapeutic activities to return to functional activities of daily living. Electronically signed by: Cecilia Eden PT DPT Please sign and return to therapist. Thank you for your referral.
--- NOTE | 2023-02-01 15:37 | MHC.PT.DC ---
[facility] [place] Office [place] Office [place] Office [address] Carlos A Becerra [address] [phone] F: [phone] F: [phone] F: [phone] F: [phone] Physical Therapy Discharge Report Diagnosis: L lower quadrant pain Date of Surgery: NA Date of Evaluation: 01/05/23 Date of Discharge: 02/01/23 Treatments to Date: 9 Cancellations to Date: 0 No Shows to Date: 0 Discharge Status: Improved Function Independent with HEP Discharge Summary: Olegario has completed 9 PT visit. He has made significant improvements and achieved all goals set for him. He is independent with his HEP as well. He is therefore being d/c PT. Olegario was in agreement with the plan. Electronically signed by: Cecilia Eden PT DPT Please sign and return to therapist. Thank you for your referral.
== END 2023-02-01 15:38 | disposition home or self-care (01) ==
LOC: HO.PT 10:00
PROVIDERS: PCP Internal Medicine; Visit Provider Urology
DX: R10.32 Left lower quadrant pain (principal)
CPT/HCPCS: 97110; 97112; 97140; 97162; 97530

== ENCOUNTER → 2023-03-17 08:50 | Outpatient (BNVA) | payer MEDICARE, MEDICAID, SELFPAY | PROVIDERS: PCP Internal Medicine; Visit Provider Urology | DX: N32.89 Other specified disorders of bladder (principal) | CPT/HCPCS: 52000; 99212 ==

== ENCOUNTER 2023-03-27 13:44 | Outpatient (REF) | payer MEDICARE, MEDICAID, SELFPAY | END 2023-03-27 13:45 | disposition home or self-care (01) | LOC: HO.LAB 13:44 | PROVIDERS: PCP Internal Medicine; Referring Provider Internal Medicine; Visit Provider Internal Medicine Cardiovascular Disease | DX: E78.5 Hyperlipidemia, unspecified (principal); I10 Essential (primary) hypertension; I45.2 Bifascicular block; R06.00 Dyspnea, unspecified; Z79.899 Other long term (current) drug therapy | CPT/HCPCS: 36415; 82550; 93005; 99212 ==

== ENCOUNTER 2023-05-15 11:38 | Outpatient (REF) | payer MEDICARE, MEDICAID, SELFPAY | END 2023-05-15 11:39 | disposition home or self-care (01) | LOC: HO.HMGCLDS 11:38 | PROVIDERS: PCP Internal Medicine; Visit Provider Internal Medicine Cardiovascular Disease | DX: E78.5 Hyperlipidemia, unspecified (principal) | CPT/HCPCS: 36415; 82550 ==

== ENCOUNTER 2023-05-25 09:10 | Outpatient (AMB) | payer MEDICARE, MEDICAID, SELFPAY ==
--- NOTE | 2023-05-25 09:59 | A.OFFVIS_ITS ---
Intake Intake Visit Reasons: 2m follow up Allergies No Known Allergies [No Known Allergies*] Allergy (Verified 03/27/23 14:09) Medication List - Last Reconciled 05/25/23 by Syed Adams MD acetaminophen (Tylenol) 650 mg PO Q6H PRN aspirin (Enteric Coated Aspirin) 81 mg PO DAILY clotrimazole-betamethasone 1-0.05 % 1 appl topical DAILY imipramine HCl 25 mg PO BEDTIME 90 days levothyroxine 50 mcg PO DAILY 30 days lisinopril 20 mg PO DAILY mirabegron ER 25 mg PO DAILY 30 days multivitamin 1 cap PO DAILY nitroglycerin 0.4 mg sublingual Q5M PRN omeprazole 20 mg PO DAILY oxycodone-acetaminophen 5-325 mg 1 tab PO Q6H PRN prednisone 2.5 mg PO Q OTHER DAY pyridostigmine bromide 60 mg PO TID rosuvastatin (Crestor) 5 mg PO DAILY Stiolto Respimat 2.5-2.5 mcg/actuation (tiotropium-olodaterol) 2 puffs PO DAILY NS Ventolin HFA 90 mcg/actuation (albuterol sulfate) 2 puffs inhalation Q4-6H PRN NS HPI HPI Comments History of Present Illness Details Olegario is a very pleasant male. He is a patient of Dr. Suazo. He is seen for the following urologic conditions - lower urinary tract symptoms - renal cyst Telemedicine Evaluation 15 min Consultation [employer] Gabriel Video attempted Follow-up trial Myrbetriq - nocturia x3 Had upset stomach so recommend BRAT diet with reintroduction Left orchalgia secondary to hernia repair Overactive bladder Cystoscopy 02/25 trabeculation with reduced stability open bladder neck Failed trial of tolterodine and oxybutynin, toviaz secondary to dry mouth and dry eyes Nocturia stabilized with imipramine over still getting up 5 times at night Effective response to meds Lower urinary tract symptoms Current encounter for the follow-up of lower urinary tract symptoms - good response with finasteride daily for effective stream and emptying Current treatment includes medication - none Prostate Symptom Score 8/18 , Moderate (9-19), Bother 3. Symptoms include 8/18 , incomplete emptying, weak stream, nocturia (>2), and are progressing. Results from testing include cystoscopy high riding bladder neck (median bar) 9/, 01/25 median bar with mild trabeculation renal/bladder us Yes date 07/04/2018 PVR 35 prostate size 45 PSA 02/22 1.2, 11/26 0.5 Prostate volume 30-50gm. Renal cyst Imaging - 12/28 renal ultrasound with bilateral renal cyst 1.5 cm [facility] Medical History (Updated 03/17/23 @ 09:38 by Syed Adams MD) Abdominal pain Arthritis Back pain Chronic pain syndrome COPD (chronic obstructive pulmonary disease) Degenerative disc disease, lumbar Diastolic dysfunction Disc degeneration, lumbar JULIEN (dyspnea on exertion) Elevated troponin Emphysema of lung GERD (gastroesophageal reflux disease) Hyperglycemia Hyperlipidemia Hypertension Hypothyroid Iatrogenic adrenal insufficiency Iron deficiency anemia Left inguinal hernia Left inguinal pain Leg cramps Multinodular thyroid Myasthenia gravis Osteoarthritis Preop cardiovascular exam Pulmonary nodule 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 Mother No problems noted. Social History Household Members: Spouse Housing: House Are you a primary nurse care manager to a significant other at home: No Do you presently have visiting nurse or other home services: Yes Alcohol intake: never Patient Tobacco Use Status: Never used Tobacco e-Cigarette/Vaping Use: Never Used Second Hand Smoke Exposure: No service: No Current occupational status: retired Current occupation: right handed Cognitive needs: No Hearing needs: No Vision needs: No Assessment & Plan Assessment & Plan (1) Bladder instability: Code(s): N32.89 - Other specified disorders of bladder (2) BPH loc w urin obs/LUTS: Comment: Finasteride Code(s): N40.1 - Benign prostatic hyperplasia with lower urinary tract symptoms Plan Six month follow-up Medications: Changed From mirabegron ER 25 mg PO DAILY 30 days 30 tabs 1RF To mirabegron ER 25 mg PO DAILY 90 days 90 tabs 1RF Patient Instructions: Imaging studies, laboratory and physical exam results were discussed and reviewed in detail. No major barriers to patient understanding were identified. An opportunity to ask questions regarding the treatment plan was provided. All questions were answered. The patient expressed understanding and agreement with the above treatment plan. The patient is aware they should contact our office by phone for worsening of their current condition or the appearance of new urologic symptoms. Compliance is encouraged with any medications and followup testing that is ordered. It is a privilege to participate in the urologic care of your patient. If you have any questions or concerns regarding treatment for the above conditions, or other urologic issues, please do not hesitate to contact me. The office telephone contact is [phone]. This note is constructed using voice recognition software. While every effort has been made to ensure accuracy home teaching grades 7 and 8 teacher errors may have been included. Yours sincerely, Dr Syed Adams MD, [facility] - Urology Providers of Expert, Compassionate Care for the Genitourinary System Telehealth Telehealth Location of provider rendering services: practice address Location of patient: address on file Patient Identification confirmed using: Name, : Yes Telehealth method: video Patient verbally consented to treatment: Yes Patient verbally consented to billing insurance company: Yes Patient informed of any privacy concerns related to visit: Yes Coding Level of Care Code Tele Est Pt Level 3 (50276) Diagnoses Bladder instability N32.89 BPH loc w urin obs/LUTS N40.1
== END 2023-05-25 10:17 | disposition home or self-care (01) ==
LOC: HO.HUSH 09:10
PROVIDERS: PCP Internal Medicine; Visit Provider Urology
DX: N32.89 Other specified disorders of bladder (principal); N40.1 Benign prostatic hyperplasia with lower urinary tract symptoms
CPT/HCPCS: 99213

== ENCOUNTER → 2023-05-25 09:10 | Outpatient (BNVA) | payer MEDICARE, MEDICAID, SELFPAY | PROVIDERS: PCP Internal Medicine; Visit Provider Urology | DX: N40.1 Benign prostatic hyperplasia with lower urinary tract symptoms (principal); N13.8 Other obstructive and reflux uropathy; N32.89 Other specified disorders of bladder | CPT/HCPCS: Q3014 ==

== ENCOUNTER 2023-06-12 11:18 | Outpatient (AMB) | payer MEDICARE, MEDICAID, SELFPAY ==
[2023-06-12 11:34] VITALS: BP 118/66; PULSE 62; O2SAT 97; BMI 27.9
--- NOTE | 2023-06-12 11:34 | A.OFFVIS_ITS ---
Intake Vital Signs 06/12/23 11:34 Height 5 ft 11 in Weight 200 lb BMI 27.9 BP 118/66 Blood Pressure Location Lt brachial Position Sitting Pulse 62 Pulse Source Pulse Oximeter Pulse Oximetry (%) 97 Oxygen Delivery Method Room Air Intake Visit Reasons: AWV Intake Note: Pt is here today for AWV. Allergies No Known Allergies [No Known Allergies*] Allergy (Verified 06/12/23 11:46) Medication List - Last Reconciled 06/12/23 by Gifty Frankel MD acetaminophen (Tylenol) 650 mg PO Q6H PRN aspirin (Enteric Coated Aspirin) 81 mg PO DAILY clotrimazole-betamethasone 1-0.05 % 1 appl topical DAILY levothyroxine 50 mcg PO DAILY 30 days lisinopril 20 mg PO DAILY mirabegron ER 25 mg PO DAILY multivitamin 1 cap PO DAILY nitroglycerin 0.4 mg sublingual Q5M PRN omeprazole 20 mg PO DAILY oxycodone-acetaminophen 5-325 mg 1 tab PO Q6H PRN prednisone 2.5 mg PO Q OTHER DAY pyridostigmine bromide 60 mg PO TID rosuvastatin (Crestor) 5 mg PO DAILY Stiolto Respimat 2.5-2.5 mcg/actuation (tiotropium-olodaterol) 2 puffs PO DAILY NS Ventolin HFA 90 mcg/actuation (albuterol sulfate) 2 puffs inhalation Q4-6H PRN NS HPI AWV HPI Details Pt presents for annual visit. Patient complains of chronic right shoulder pain worse when trying to lift or reach overhead. 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 Patient reports chronic postnasal drip and intermittent cough with clear sputum. Initiated the conversation about Advanced Directives. Advanced Directives help? patients prepare for current and future decisions about their medical treatment? and place of care. Discussed with patient that it is a process where a patients? current condition and prognosis are reviewed, their wishes for information? regarding their illness are elicited, and likely medical dilemmas are presented? and options discussed. The form can be amended as needed, reviewed yearly and? make changes as needed IPPE/AWV ? year old presents? for her ? Annual? Wellness Visit, initial visit.? Medical / Social History Reviewed? Past Medical History ?Yes? . ? [place]? of Care / Care Team list updated ?Yes . ? Surgical/Hospitalization? History ?Yes . ? Current Medications? (including OTC and supplements) ?Yes . ? Family History ?Yes? . ? Tobacco? Control form ?Yes . ? AUDIT-C (Alcohol use) form? ?Yes . ? Illicit drug use in Social? History ?Yes . ? Current diagnosis of? depression? ?No ? Appropriate PHQ2/PHQ9? completed ?Yes . ? Data entered by ?Medical? [employer] and reviewed by provider ? Fall Risk ? Fall? History? Have you had any falls with? injury in the past year? ?No . ? Have you had two or more? falls in the past year? ?No . ? Fall Risk Assessment: ?No? falls in the past year . ? HRA filled out by? the patient, reviewed by Provider and scanned. ? IPPE/AWV ? Balance? [place]? ?Yes . ? Tandem? walk ?Yes . ? Walk and? Turn ?Yes . ? Rise from? sit to stand ?Yes . ?Vision? Corrective? lens ?Yes ? Vision? screen ? Up-to-date, has an appointment [] for vision? screening and glaucoma screening ?Hearing? Whisper? test ?pass .? Initiated the conversation about Advanced Directives. Advanced Directives help? patients prepare for current and future decisions about their medical treatment? and place of care. Discussed with patient that it is a process where a patients? current condition and prognosis are reviewed, their wishes for information? regarding their illness are elicited, and likely medical dilemmas are presented? and options discussed. The form can be amended as needed, reviewed yearly and? make changes as needed Written? Plan?Completed. See Patient? Documents. 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 Mother No problems noted. Social History Household Members: Spouse Housing: House Are you a primary pet caretaker to a significant other at home: No Do you presently have visiting nurse or other home services: Yes Alcohol intake: never Patient Tobacco Use Status: Never used Tobacco e-Cigarette/Vaping Use: Never Used Second Hand Smoke Exposure: No service: No Current occupational status: retired Current occupation: right handed Cognitive needs: No Hearing needs: No Vision needs: No Questionnaire Medicare Wellness Checkup [age] What gender do you identify with?: male During the past 4 weeks, how much have you been bothered by emotional problems such as feeling anxious, depressed, irritable, sad or downhearted, and blue?: slightly During the past 4 weeks, has your physical & emotional health limited your social activities with family, friends, neighbors, or groups?: not at all During the past 4 weeks, how much bodily pain have you generally had?: mild pain During the past 4 weeks, was someone available to help you if you needed & wanted help?: yes, some During the past 4 weeks, what was the hardest physical activity you could do for at least 2 minutes?: moderate Can you get to places out of walking distance without help? (For eg., can you travel alone on buses, taxis or drive your car?): Yes Can you go shopping for groceries or clothes without someone's help?: Yes Can you prepare your own meals?: Yes Can you do your housework without help?: Yes Because of any health problems, do you need the help of another person with your personal care needs such as eating, bathing, dressing or getting around the house?: No Can you handle your own money without help?: Yes During the past 4 weeks, how would you rate your health in general?: fair During the past 4 weeks how have things been going for you?: good & bad parts about equal Are you having difficulties driving your car?: no Do you always fasten your seat belt when you are in a car?: yes, usually During past 4 weeks, have you been bothered by the following: never: Falling or dizzy when standing up, Sexual problems? and Problems using the telephone?, seldom: Teeth or denture problems? and sometimes: Trouble eating well? and Tiredness or fatigue? Have you fallen 2 or more times in the past year?: No Are you afraid of falling?: No Are you a smoker?: no During the past 4 weeks, how many drinks of wine, beer, or other alcoholic beverages did you have?: no alcohol at all Do you exercise for about 20 minutes 3 or more times a week?: yes, most of the time Have you been given information to help with the following?: yes: Hazards in your house that might hurt you? and yes: Keeping track of your medications? How often do you have trouble taking medicines the way you have been told to take them?: I always take medicine as prescribed How confident are you that you can control & manage most of your health problems?: very confident What is your race?: White Mini Mental State Exam (MMSE) Orientation What is the (year) (season) (date) (day) (month)?: year, season, date, day and month Where are we (state) (county) (town or city) (hospital) (floor)?: state, county, town or city, hospital/clinic and floor Registration Name of 3 unrelated objects clearly and slowly, then ask patient to repeat all 3 of them. (1st repeat determines score. Make sure they can repeat all three): object 1, object 2 and object 3 Attention & Calculation (CHOOSE ONE) Ask pt to begin with 100 & count backward by 7. Stop after 5 repeats. If pt cannot ask them to spell the word WORLD backward.: 93 Spell WORLD backwards (DLROW): 5 letters Recall Ask patient to repeat the 3 items from question #3.: object 1, object 2 and object 3 Language Show patient a wristwatch & ask what it is. Repeat for pencil.: watch and pencil Ask the patient to repeat the phrase 'No ifs, ands, or buts' after you.: correct Ask the patient to 'take a piece of paper with their right hand' 'fold paper in half' 'place paper on floor': take paper in right hand, fold paper in half and place paper on floor Print the sentence 'CLOSE YOUR EYES' on a piece. If patient actually closes eyes then score.: followed written direction Give patient a blank piece of paper & ask to write a sentence. Score if it contains a noun & verb.: sentence contains subject and verb Ask patient to copy figure of intersecting pentagons exactly. Score if all 10 angles & 2 intersects are included.: all 10 angles present & 2 are intersected Score Score: 31 Activity of Daily Living Bathing - sponge bath, tub bath or shower: receives no assistance (gets in/out by self, if usual bathing means Dressing - getting clothes from closets & drawers, including inner/outer garments & fasteners.: gets clothes & gets completely dressed without help Toileting - going to the 'toilet room' for urine/bowel elimination & cleaning self/arranging clothes: goes to toilet room, cleans self, arranges clothes without help Transfer: moves in & out of bed and chair without help (may use support object) Continence: controls urination/bowel movements completely by self Feeding: feeds self without help Total Score: 0 Information obtained from: patient Using telephone: independent Traveling: independent Shopping: independent Preparing meals: independent Housework: independent Taking medicine: independent Managing money: independent PHQ-9 Over the last 2 weeks, how often have you been bothered by any of the following problems? 1. Little interest or pleasure in doing things: not at all 2. Feeling down, depressed, or hopeless: not at all 3. Trouble falling or staying asleep, or sleeping too much: more than half the days 4. Feeling tired or having little energy: several days 5. Poor appetite or overeating: more than half the days 6. Feeling bad about yourself - or that you are a failure or have let yourself or your family down: not at all 7. Trouble concentrating on things, such as reading the newspaper or watching television: not at all 8. Moving or speaking so slowly that other people could have noticed. Or the opposite - being so fidgety or restless that you have been moving around a lot more than usual: not at all 9. Thoughts that you would be better off or of hurting yourself in some way: not at all Total score: 5 Depression Screening Interpretation: Negative Source: Developed by Drs. Patrice Kay, Lesley Calderón, Duran Barrios and colleagues, with an educational danica from [employer]. Review of Systems Const All systems reviewed & are unremarkable except as noted in HPI and below Reports no additional complaints Eyes Reports no additional complaints ENT Reports no additional complaints Card Reports no additional complaints Resp Reports no additional complaints GI Reports no additional complaints Reports no additional complaints Physical Exam Vital Signs: Last Vital Signs Pulse 62 06/12/23 11:34 BP 118/66 06/12/23 11:34 Pulse Ox 97 06/12/23 11:34 Oxygen Delivery Method Room Air 06/12/23 11:34 BMI result Body Mass Index 27.9 Const General: no acute distress HEENT Head: Yes normal to inspection Eyes General: appearance normal, both eyes and all related structures Neck Neck: Yes no lymphadenopathy and Yes supple Resp Effort & Inspection: normal respiratory effort Auscultation: clear to auscultation bilaterally Cardio Rhythm: regular rhythm Heart sounds: S1 normal heart sound present and S2 normal heart sound present GI Inspection: Yes normal to inspection Palpation (GI): Soft to palpation Percussion: Yes normal to percussion Auscultation: normal bowel sounds Extrem Other: Decreased range of motion right shoulder General: Yes no clubbing, cyanosis or edema Assessment & Plan Assessment & Plan (1) Shoulder pain, right: Code(s): M25.511 - Pain in right shoulder Plan: Check x-ray patient was advised to have physical therapy but he declined. If the symptoms persist he will be referred to ortho for cortisone injection (2) Myasthenia gravis: Comment: Patient has chronic myasthenia gravis, involving the eyelids, right facial muscles, and lower extremities. He is on prednisone 7.5 mg daily at this time, and is remaining quite stable. Code(s): G70.00 - Myasthenia gravis without (acute) exacerbation Plan: Follow-up with neurology (3) Hyperlipidemia: Code(s): E78.5 - Hyperlipidemia, unspecified Plan: Continue statin (4) Hypertension: Code(s): I10 - Essential (primary) hypertension Plan: Continue current medications (5) Hypothyroid: Code(s): E03.9 - Hypothyroidism, unspecified Qualifiers: Hypothyroidism type: unspecified Qualified Code(s): E03.9 - Hypothyroidism, unspecified Plan: Continue levothyroxine check TSH (6) Multinodular thyroid: Comment: Annual ultrasound Code(s): E04.2 - Nontoxic multinodular goiter Orders: Orders XR shoulder RT min 2V Today M25.511 - Pain in right shoulder Comprehensive Webb. Panel Fast Today E03.9 - Hypothyroidism, unspecified, E04.2 - Nontoxic multinodular goiter, E78.5 - Hyperlipidemia, unspecified, G70.00 - Myasthenia gravis without (acute) exacerbation, I10 - Essential (primary) hypertension Complete Blood Count Auto Diff Today E03.9 - Hypothyroidism, unspecified, E04.2 - Nontoxic multinodular goiter, E78.5 - Hyperlipidemia, unspecified, G70.00 - Myasthenia gravis without (acute) exacerbation, I10 - Essential (primary) hypertension Lipid Panel Today E03.9 - Hypothyroidism, unspecified, E04.2 - Nontoxic multinodular goiter, E78.5 - Hyperlipidemia, unspecified, G70.00 - Myasthenia gravis without (acute) exacerbation, I10 - Essential (primary) hypertension Hemoglobin A1c Today E03.9 - Hypothyroidism, unspecified, E04.2 - Nontoxic multinodular goiter, E78.5 - Hyperlipidemia, unspecified, G70.00 - Myasthenia gravis without (acute) exacerbation, I10 - Essential (primary) hypertension TSH reflex Free T4 Today E03.9 - Hypothyroidism, unspecified, E04.2 - Nontoxic multinodular goiter Medications: Changed From mirabegron ER 25 mg PO DAILY 90 days 90 tabs 1RF To mirabegron ER 25 mg PO DAILY Quality Reporting (2019) Depression/Bipolar (159/160/161/177) PHQ-9: Total score: 5 Coding Level of Care Code Medicare Subsequent (G0439) Diagnoses Shoulder pain, right M25.511 Myasthenia gravis G70.00 Hyperlipidemia E78.5 Hypertension I10 Hypothyroid E03.9 Hypothyroidism type: unspecified Multinodular thyroid E04.2 CPT Codes Advance Care Planning - Time spent: 1-15 minutes, not on file ([id number]) Advance Care Planning Advance Care Planning discussion: Exists, not on file Date of discussion: 06/12/23 Forms completed: Health Care Proxy Time spent: 1-15 minutes, not on file
== END 2023-06-12 12:39 | disposition home or self-care (01) ==
PROVIDERS: PCP Internal Medicine; Visit Provider Internal Medicine
DX: Z00.00 Encounter for general adult medical examination without abnormal findings (principal); G70.00 Myasthenia gravis without (acute) exacerbation; I10 Essential (primary) hypertension; E03.9 Hypothyroidism, unspecified; E04.2 Nontoxic multinodular goiter; M25.511 Pain in right shoulder; E78.5 Hyperlipidemia, unspecified
CPT/HCPCS: 1124F; G0439

== ENCOUNTER 2023-06-12 13:21 | Outpatient (REF) | payer MEDICARE, MEDICAID, SELFPAY ==
--- NOTE | ~2023-06-12 | XR_ITS ---
EXAMINATION: XR SHOULDER, RIGHT CLINICAL INFORMATION: Pain. COMPARISON: None available. TECHNIQUE: AP external rotation, Grashey, scapular Y, and axillary views of the right shoulder. FINDINGS: Bony alignment and mineralization are normal. The glenohumeral joint is intact and shows mild osteoarthritic change. There is superior subluxation of the right humeral head relative to the glenoid, with narrowing of the rotator cuff interval. There is a distal acromial undersurface osteophyte, and cortical irregularity is seen of the greater tuberosity of the proximal right humerus. No fracture or dislocation is seen. There is no soft tissue calcification or foreign body. No right pneumothorax is seen. There are right pulmonary surgical mary alice. XR/XR shoulder RT min 2V IMPRESSION: 1. There is mild osteoarthritic change of the right glenohumeral joint. 2. Findings suggest right rotator cuff impingement, without christina calcific tendinitis.
== END 2023-06-12 13:22 | disposition home or self-care (01) ==
LOC: HO.HMGCX 13:21
PROVIDERS: PCP Internal Medicine; Visit Provider Internal Medicine
DX: M25.511 Pain in right shoulder (principal)
CPT/HCPCS: 73030

== ENCOUNTER 2023-06-20 09:39 | Outpatient (AMB) | payer MEDICARE, MEDICAID, SELFPAY ==
[2023-06-20 09:43] VITALS: BP 120/70; PULSE 60; O2SAT 99; BMI 28.3
--- NOTE | 2023-06-20 09:43 | A.OFFVIS_ITS ---
Intake Vital Signs 06/20/23 09:43 Height 5 ft 11 in Weight 203 lb BMI 28.3 BP 120/70 Blood Pressure Location Lt brachial Position Sitting Pulse 60 Pulse Source Pulse Oximeter Pulse Oximetry (%) 99 Oxygen Delivery Method Room Air Intake Visit Reasons: COPD Intake Note: pt is here for follow up and states he is having a lot of trouble with post nasal drip at night, which wakes him up at night, this is worse during the day, but at night time unbearable. pt did mention he had blurry vision last night. Allergies No Known Allergies [No Known Allergies*] Allergy (Verified 06/20/23 09:54) Medication List - Last Reconciled 06/20/23 by David Vizcaino MD acetaminophen (Tylenol) 650 mg PO Q6H PRN aspirin (Enteric Coated Aspirin) 81 mg PO DAILY clotrimazole-betamethasone 1-0.05 % 1 appl topical DAILY levothyroxine 50 mcg PO DAILY 30 days lisinopril 20 mg PO DAILY mirabegron ER 25 mg PO DAILY multivitamin 1 cap PO DAILY nitroglycerin 0.4 mg sublingual Q5M PRN omeprazole 20 mg PO DAILY oxycodone-acetaminophen 5-325 mg 1 tab PO Q6H PRN prednisone 1 mg PO DAILY prednisone 1 mg PO DAILY pyridostigmine bromide 60 mg PO TID rosuvastatin (Crestor) 5 mg PO DAILY Stiolto Respimat 2.5-2.5 mcg/actuation (tiotropium-olodaterol) 2 puffs PO DAILY NS Ventolin HFA 90 mcg/actuation (albuterol sulfate) 2 puffs inhalation Q4-6H PRN NS Do you need a note to return to daycare/school/sports/work: No HPI COPD HPI Details This 73 years old very pleasant gentleman is here for his 6 months fo.llow-up Breathing long he has been doi,ng fairly well just using Stiolto 1 inhalation b.i.d.. He hardly uses the rescue inhaler. His main complaint is postnasal drip and cough at nighttime and he feels congested. Denies any sneezing or runny nose during the daytime. He has CBC in December of this year did show elevated eosinophil count 0.6 ( 600 ) which goes along with allergy issue, Keagan is being treated for myasthenia gravis, use to be on prednisone 2.5 mg daily which is now lowered down to 1 mg daily. This may have resulted in aggr.avated respiratory symptoms. During the daytime he gill.s no cough or wheezing PFSH Medical History (Updated 06/20/23 @ 10:16 by David Vizcaino MD) Abdominal pain Allergic rhinitis Arthritis Back pain Chronic pain syndrome COPD (chronic obstructive pulmonary disease) Degenerative disc disease, lumbar Diastolic dysfunction Disc degeneration, lumbar JULIEN (dyspnea on exertion) Elevated troponin Emphysema of lung GERD (gastroesophageal reflux disease) Hyperglycemia Hyperlipidemia Hypertension Hypothyroid Iatrogenic adrenal insufficiency Iron deficiency anemia Left inguinal hernia Left inguinal pain Leg cramps Multinodular thyroid Myasthenia gravis Osteoarthritis Preop cardiovascular exam Pulmonary nodule 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 Mother No problems noted. Social History Household Members: Spouse Housing: House Are you a primary patient centered care specialist to a significant other at home: No Do you presently have visiting nurse or other home services: Yes Alcohol intake: never Patient Tobacco Use Status: Never used Tobacco e-Cigarette/Vaping Use: Never Used Second Hand Smoke Exposure: No service: No Current occupational status: retired Current occupation: right handed Cognitive needs: No Hearing needs: No Vision needs: No Review of Systems Const All systems reviewed & are unremarkable except as noted in HPI and below Eyes Reports no additional complaints ENT Reports no additional complaints Card Denies chest pain, Denies irregular heart rhythm and Reports dyspnea on exertion Resp Reports as per HPI and Reports dyspnea on exertion GI Reports no additional complaints Reports no additional complaints Musc Reports back pain (Mild) Skin/Breast Reports system reviewed and no additional complaints, except as documented Psych Reports no additional complaints Endo Reports no additional complaints De/Lymph Reports no additional complaints Physical Exam Vital Signs: Last Vital Signs Pulse 60 06/20/23 09:43 BP 120/70 06/20/23 09:43 Pulse Ox 99 06/20/23 09:43 Oxygen Delivery Method Room Air 06/20/23 09:43 BMI result Body Mass Index 28.3 Const General: comfortable, no acute distress, alert and awake Orientation/consciousness: patient oriented x3 HEENT Head: Yes normal to inspection General nose exam: No nasal polyps present, No nasal discharge present and Other nasal findings present ( mild nasal congestion is noted) Face and sinus: Yes sinuses nontender Mouth: oropharynx normal Throat: Yes posterior oropharynx normal Eyes General: appearance normal, both eyes and all related structures Neck Neck: Yes normal visual inspection, Yes no lymphadenopathy, Yes trachea midline and Yes no JVD Thyroid: Thyroid normal Chest Chest palpation & inspection: normal inspection of the chest, normal palpation of entire chest wall and no tenderness Resp Other: Percussion note resonant, breath sounds are slightly diminished over the basilar areas. No wheezes , CREPS or rhonchi are heard. Cardio Palpation: PMI not normal (Not palpable) Rate: regular rate Rhythm: regular rhythm Heart sounds: no gallops and no murmurs GI Palpation (GI): Soft to palpation, nontender, No hepatosplenomegaly present, no masses and Other GI palpation findings present (Abdomen is moderately obese) Auscultation: normal bowel sounds Back/Spine/Pelvis Thoracic/Lumbar Spine: thoracic and lumbar spine normal to inspection Skin General skin exam: no rashes or lesions noted Neuro General: patient oriented x3 and no focal motor deficits Cranial nerves: Yes CN's II-XII intact bilaterally Extrem General: Yes normal to inspection, Yes no clubbing, cyanosis or edema and Yes no calf tenderness Psych Appearance: grossly normal and well kempt Speech and movement: Normal speech and movement present Results Reviewed Results Reviewed: SPIROMETRY fvc=97 % fev1= 82 % fef 25-75 = 58 % c/w Mild Obstructive Lung Disorder Assessment & Plan Assessment & Plan (1) COPD (chronic obstructive pulmonary disease): Comment: HE HAS MODERATELY SEVERE CHRONIC OBSTRUCTIVE PULMONARY DISORDER. WITH HIS CURRENT MEDICAL REGIMEN HIS PULMONARY STATUS IS STAYING STABLE. * SPIROMETRY IN THE OFFICE TODAY BUT COMPARED TO 2018 HIS NUMBERS ARE ACTUALLY SIZE SLIGHTLY BETTER. TX :CONTINUE TO USE STIOLTO INHALOR 2 INH DAILY . DOES NOT NEED ICS , HE IS ON ORAL PREDNISONE ADVISED TO CHECK HIS PEAK FLOWS REGULARLY . ALSO ADVISED TO KEEP ON DOING DEEP BREATHING EXERCISES 2 OR 3 TIMES A DAY. Code(s): J44.9 - Chronic obstructive pulmonary disease, unspecified (2) Myasthenia gravis: Comment: Patient has chronic myasthenia gravis, involving the eyelids, right facial muscles, and lower extremities. He has been treated with tapering down, dose of prednisone. currently he is doing well with 1 mg a day. Code(s): G70.00 - Myasthenia gravis without (acute) exacerbation (3) Allergic rhinitis: Comment: he presents with symptoms of nasal congestion postnasal drip and cough. at nighttime this seems to be secondary to allergic rhinitis. in December 2022, use in fill count was 0.6 ( 600 ) treatment advised: Flonase 2 spray and he should nostril daily at bedtime. cetirizine are Claritin 10 mg may take 1 at bedtime. Code(s): J30.9 - Allergic rhinitis, unspecified Coding Level of Care Code Est Pt Level 3 (07152) Diagnoses COPD (chronic obstructive pulmonary disease) J44.9 Myasthenia gravis G70.00 Allergic rhinitis J30.9
== END 2023-06-20 10:23 | disposition home or self-care (01) ==
PROVIDERS: PCP Internal Medicine; Visit Provider Internal Medicine
DX: J44.9 Chronic obstructive pulmonary disease, unspecified (principal); G70.00 Myasthenia gravis without (acute) exacerbation; J30.9 Allergic rhinitis, unspecified
CPT/HCPCS: 99213

== ENCOUNTER → 2023-06-20 09:39 | Outpatient (BNVA) | payer MEDICARE, MEDICAID, SELFPAY | PROVIDERS: PCP Internal Medicine; Visit Provider Internal Medicine | DX: J44.9 Chronic obstructive pulmonary disease, unspecified (principal); G70.00 Myasthenia gravis without (acute) exacerbation; J30.9 Allergic rhinitis, unspecified | CPT/HCPCS: 99212 ==

== ENCOUNTER 2023-06-22 08:06 | Outpatient (REF) | payer MEDICARE, MEDICAID, SELFPAY ==
[2023-06-22 11:08] LABS: MANUAL DIFF FLAG NO
[2023-06-22 11:31] LABS: Basophils Absolute Auto 0.1 X10*3/uL (0.0-0.2); Basophils Percent Auto 0.7 % (0-2); Eosinophils Absolute Auto 0.5 X10*3/uL (0.0-0.4); Eosinophils Percent Auto 6.6 % (0-4); Hemoglobin 13.4 g/dl (14.0-18.0); Imm Gran Abs Auto 0.01 X10*3/uL (0.00-0.03); Imm Gran Pct Auto 0.1 % (0.0-0.4); Lymphocytes Absolute Auto 1.4 X10*3/uL (1.2-4.9); Lymphocytes Percent Auto 18.5 % (20-40); Mean Corpuscular HGB Conc 32.7 g/dl (31.0-36.0); Mean Corpuscular Hemoglobin 28.5 pg (27.0-33.0); Mean Corpuscular Volume 87.2 fL (80.0-98.0); Mean Platelet Volume 11.6 fL (9.4-12.4); Monocytes Absolute Auto 0.8 X10*3/uL (0.1-1.2); Monocytes Percent Auto 10.6 % (2-11); Neutrophils Absolute Auto 4.8 x10*3/uL (2.0-8.3); Neutrophils Percent Auto 63.5 % (45-73); Platelet Count 246 X10*3/uL (160-400); Red Cell Distribution Width 15.4 % (11.0-16.0); White Blood Count 7.5 X10*3/uL (4.8-10.8)
[2023-06-22 11:41] LABS: Estimated Average Glucose 108 mg/dL; Hemoglobin A1c % 5.4 %
[2023-06-22 12:07] LABS: Alanine Aminotransferase 21 U/L (0-40); Albumin Level 4.2 g/dL (3.5-5.0); Alkaline Phosphatase 93 U/L (39-117); Anion Gap 13 (12-20); Aspartate Amino Transferase 26 U/L (5-37); Bilirubin Total 0.6 mg/dL (0.0-1.0); Blood Urea Nitrogen 15 mg/dL (9-16); Calcium 9.3 mg/dL (8.4-10.2); Carbon Dioxide 24 mmol/L (22-29); Chloride 106 mmol/L (96-108); Cholesterol 104 mg/dL; Estimated Glomerular Filt Rate > 60; Glucose Fasting 91 mg/dL (60-99); HDL Cholesterol 45 mg/dL; LDL Cholesterol Calculated 47 mg/dl; Potassium 4.3 mmol/L (3.3-5.1); Sodium 139 mmol/L (135-145); Total Protein 7.2 g/dL (6.5-8.0); Triglycerides 60 mg/dL
[2023-06-22 12:08] LABS: TSH reflex Free T4 3.62 uIU/mL (0.32-4.0)
== END 2023-06-22 08:07 | disposition home or self-care (01) ==
LOC: HO.HMGCLDS 08:06
PROVIDERS: PCP Internal Medicine; Visit Provider Internal Medicine
DX: E03.9 Hypothyroidism, unspecified (principal); E04.2 Nontoxic multinodular goiter; E78.5 Hyperlipidemia, unspecified; G70.00 Myasthenia gravis without (acute) exacerbation; I10 Essential (primary) hypertension
CPT/HCPCS: 36415; 80053; 80061; 83036; 84443; 85025

== ENCOUNTER 2023-07-05 15:28 | Outpatient (REF) | payer MEDICARE, MEDICAID, SELFPAY ==
--- NOTE | ~2023-07-05 | US_ITS ---
EXAMINATION: US THYROID CLINICAL INFORMATION: Nontoxic multinodular goiter. COMPARISON: Ultrasound thyroid 08/01/2022 and 12/07/2021. TECHNIQUE: Linear transducer castanon-scale and color Doppler examination with attention to the region of the thyroid. FINDINGS: SIZE: Measurements of the thyroid lobes and nodules are given in sagittal, anteroposterior and transverse dimensions respectively. Right Thyroid Lobe: 4.8 x 1.9 x 1.8 cm, volume 8.6 mL. Previously 4.4 x 1.7 x 1.9 cm, volume 7.4 mL. Parenchyma: The gland echotexture is homogeneous. Thyroid vascularity is normal. Left Thyroid Lobe: 4.3 x 1.5 x 1.3 cm, volume 4.4 mL. Previously 4.0 x 1.5 x 1.4 cm, volume 4.4 mL. Parenchyma: The gland echotexture is mildly heterogeneous. Thyroid vascularity is normal. Isthmus: 0.3 cm in maximum AP dimension. Previously 0.3 cm. Estimated total number of nodules greater than or equal to 1 cm: 2. Plate Grainer nodules are described as follows: 1. Location: Left mid/inferior. Size: 1.1 x 0.8 x 0.8 cm, volume 0.32 mL. Previously: 1.1 x 0.7 x 0.8 cm, volume 0.32 mL. Nodule characteristics: Composition: Solid (2). Echogenicity: Isoechoic (1). Shape: Taller than wide (3). Margins: Smooth (0). Echogenic Foci: Macrocalcifications (1). ACR TI-RADS total points: 7 Previous: 6 ACR TI-RADS category: 5 Previous: 4 Significant change in size (>/= 20% in 2 dimensions and minimal increase of 2 mm or 50% or greater increase in volume): None Change in features: Olegario calcific patient is evident Change in ACR TI-RADS risk category: 5 2. Location: Right superior. Size: 1.3 x 0.7 x 1.0 cm, volume 0.49 mL. Previously: 0.6 x 0.7 x 0.6 cm, volume 0.13 mL. Nodule characteristics: Composition: Solid (2). Echogenicity: Isoechoic (1). Shape: Not taller than wide (0). Margins: Smooth (0). Echogenic Foci: None (0). ACR TI-RADS total points: 3 Previous: 3 ACR TI-RADS category: 3 Previous: 3 Significant change in size (>/= 20% in 2 dimensions and minimal increase of 2 mm or 50% or greater increase in volume): 1 Change in features: None Change in ACR TI-RADS risk category: None NODES: No lymphadenopathy is seen in the tissue surrounding the thyroid gland. US/US thyroid IMPRESSION: Dominant left-sided thyroid nodule with macrocalcifications. This is a TR 5 lesion. This has been previously biopsied. Continue surveillance imaging recommended.
== END 2023-07-05 15:29 | disposition home or self-care (01) ==
LOC: HO.HMGCX 15:28
PROVIDERS: PCP Internal Medicine; Visit Provider Internal Medicine
DX: E04.2 Nontoxic multinodular goiter (principal); E03.9 Hypothyroidism, unspecified
CPT/HCPCS: 76536

== ENCOUNTER 2023-07-17 14:01 | Inpatient (IN) | payer MEDICARE, MEDICAID, SELFPAY ==
--- NOTE | ~2023-07-17 | CT_ITS ---
EXAMINATION: CT HIP WITHOUT CONTRAST, LEFT CLINICAL INFORMATION: Worsening pain COMPARISON: Previous hip x-ray most recent December 2022 TECHNIQUE: Multidetector volumetric imaging was obtained through the left hip without contrast material. Multiplanar reformatted images were submitted in coronal and sagittal planes. This CT examination was performed using dose optimization techniques as appropriate, variously including the following: *Automated exposure control *Adjustment of mA and/or kV according to patient size (this includes techniques or standardized protocols for targeted exams where dose is matched to indication/reason for exam; i.e. extremities or head) *Use of iterative reconstruction technique DLP: 193 mGy-cm FINDINGS: Bone alignment is normal. No fracture or dislocation. Mild arthritis with small osteophytes and joint space narrowing. Soft tissues are unremarkable. CT/CT hip LT wo IV con IMPRESSION: Mild left hip osteoarthritis.
--- NOTE | ~2023-07-17 | XR_ITS ---
EXAMINATION: XR CHEST CLINICAL INFORMATION: Shortness of breath COMPARISON: Previous chest x-ray most recent September 2022 TECHNIQUE: 2 views of the chest were obtained. FINDINGS: The cardiac and mediastinal contours are stable. There is chronic scarring or subsegmental atelectasis at the left lung base. The lungs are otherwise clear. No pleural effusion or pneumothorax. Degenerative changes of the spine. Spinal stimulator projects over the lower thoracic spinal canal. XR/XR chest 2V IMPRESSION: No evidence for acute disease in the chest.
--- NOTE | ~2023-07-17 | CT_ITS ---
EXAMINATION: CT CHEST WITHOUT CONTRAST CLINICAL INFORMATION: Lung mass COMPARISON: Previous chest x-ray from yesterday and chest CT July 2021 TECHNIQUE: Multidetector volumetric CT imaging of the chest was done. Axial MIP volume rendering provided. Sagittal and coronal reformatted images were obtained. This CT examination was performed using dose optimization techniques as appropriate, variously including the following: *Automated exposure control *Adjustment of mA and/or kV according to patient size (this includes techniques or standardized protocols for targeted exams where dose is matched to indication/reason for exam; i.e. extremities or head) *Use of iterative reconstruction technique DLP: 262 mGy-cm FINDINGS: LUNGS: 2 mm calcified right upper lobe nodule axial image 148 series 5 is stable. Triangular-shaped 5 mm right middle lobe nodule axial image 302 series 5 is stable. 4 mm left lower lobe nodule axial image 382 series 5 is stable. Surgical suture line and scarring or chronic subsegmental atelectasis in the right lower lobe is unchanged. MEDIASTINUM: Normal heart size. Trace pericardial effusion similar to previous exams. Normal caliber thoracic aorta. No enlarged lymph nodes. CORONARY ARTERY CALCIFICATION: Mild PLEURA: Trace right pleural effusion decreased from 2020 exam. Trace left Pleural effusion. AXILLA: No lymphadenopathy. UPPER ABDOMEN: Unremarkable. OSSEOUS STRUCTURES: Degenerative changes of the thoracic spine. Final stimulator in the lower thoracic spinal canal. CT/CT chest wo IV con IMPRESSION: No lung mass. Stable small pulmonary nodules. CT follow-up as per protocol. Stable postsurgical changes to the right lower lobe. Interval decrease in the right pleural effusion. Fleischner guidelines were followed.
[2023-07-17 08:00] VITALS: BMI 26.8
[2023-07-17 14:09] VITALS: BP 135/69; PULSE 64; RESP 18; TEMP 36.5; O2SAT 98; BMI 26.9
--- NOTE | 2023-07-17 14:10 | ED.SOB ---
HPI - SOB/Dyspnea General Chief Complaint: Dyspnea Stated Complaint: diff breathing Time Seen by Provider: 07/17/23 17:31 Source: patient Mode of arrival: ambulatory Limitations: no limitations History of Present Illness HPI Narrative: Patient comes in the emergency room complaining of worsening myasthenia gravis symptoms. Patient states that for about a month, he has gradually been becoming more weak. However, 2 weeks ago patient started noticing worsening weakness in his arms legs. One week ago he went to see his neurologist, Dr. Saez, patient has been taking. The stick mean and his prednisone was increased. However, patient has been on his new dose for over a week, and the symptoms keep getting worse. Today, the patient states that he can barely lift his arms up, has drooping on the left eyelid and for the last 2 days, patient has become scared because says that sometimes he feels that he can not breathe. Related Data Home Medications Medication Instructions Recorded Confirmed clotrimazole-betamethasone 1 1 applic topical DAILY 08/18/20 06/20/23 %-0.05 % topical cream acetaminophen 325 mg tablet 650 mg PO Q6H PRN Pain 08/28/20 06/20/23 (Tylenol) multivitamin 1 cap PO DAILY 08/28/20 06/20/23 pyridostigmine bromide 60 mg tablet 60 mg PO TID 01/27/21 06/20/23 mirabegron 25 mg tablet,extended 25 mg PO DAILY 06/12/23 06/20/23 release 24 hr prednisone 1 mg tablet 1 mg PO DAILY 06/20/23 06/20/23 prednisone 2.5 mg tablet 1 mg PO DAILY 06/20/23 06/20/23 Previous Rx's Medication Instructions Recorded nitroglycerin 0.4 mg sublingual 0.4 mg sublingual Q5M PRN chest 09/30/20 tablet pain #30 tabs Ventolin HFA 90 mcg/actuation 2 puff inhalation Q4-6H PRN 06/01/21 aerosol inhaler (albuterol sulfate) Wheezing #18 grams levothyroxine 50 mcg tablet 50 mcg PO DAILY 30 days #90 tabs 10/18/22 aspirin 81 mg tablet,delayed 81 mg PO DAILY #90 tabs 12/16/22 release (Enteric Coated Aspirin) oxycodone-acetaminophen 5 mg-325 1 tab PO Q6H PRN pain #5 tabs 01/09/23 mg tablet Stiolto Respimat 2.5 mcg-2.5 2 puff PO DAILY #4 grams 02/21/23 mcg/actuation solution for inhalation (tiotropium-olodaterol) lisinopril 20 mg tablet 20 mg PO DAILY #90 tabs 03/07/23 omeprazole 20 mg capsule,delayed 20 mg PO DAILY #90 caps 03/22/23 release rosuvastatin 5 mg tablet (Crestor) 5 mg PO DAILY #60 tabs 05/17/23 Allergies Allergy/AdvReac Type Severity Reaction Status Date / Time No Known Allergies Allergy Verified 06/20/23 09:54 [No Known Allergies*] Review of Systems Review of Systems: Constitutional : No Weight loss, No Fever, No Chills, No Night Sweats, No Fatigue, No Malaise ENT/Mouth : No Hearing loss, No Ear Pain, No Nasal Congestion, No Sinus Pain, No Hoarseness, No sore throat, No Rhinorrhea, No Swallowing Difficulty Eyes: No Eye Pain, No Swelling, No Redness, No Foreign Body, No Discharge, No Vision Changes Cardiovascular : No Chest Pain, No SOB, No Dyspnea on Exertion, No Orthopnea, No Edema, No Palpitations Respiratory : No Cough, No Sputum, No Wheezing, No Smoke Exposure, No Dyspnea Gastrointestinal : No Nausea, No Vomiting, No Diarrhea, No Constipation, No abdominal Pain, No Hematochezia, No Melena Genitourinary : no irregular bleeding, No Dysuria, No Urinary Frequency, No Hematuria, No Urinary Incontinence, No Urgency, No Flank Pain, No Urinary Flow Changes, No Hesitancy Musculoskeletal : Complaining of worsening musculoskeletal weakness upper lower extremities and left eyelid and even starting to have difficulty breathing Skin : No Skin Lesions, No rash Neuro : No Weakness, No Numbness, No Paresthesias, No Loss of Consciousness, No Dizziness, No Headache Psych : No Anxiety/Panic, No Depression, No SI/HI/AH/VH, No Social Issues, Heme/Lymph: No Bruising, No Bleeding,No Lymphadenopathy Endocrine : No Polyuria, No Polydipsia, No Temperature Intolerance PMFSH Past Medical History Medical History Allergic rhinitis Left inguinal pain Elevated troponin Syncope Preop cardiovascular exam Vasovagal episode Left inguinal hernia 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) Back pain Arthritis Chronic pain syndrome Spondylosis of lumbosacral region Disc degeneration, lumbar Hyperglycemia Abdominal pain Pulmonary nodule Hyperlipidemia Toe ulcer Iatrogenic adrenal insufficiency Multinodular thyroid COPD (chronic obstructive pulmonary disease) Myasthenia gravis Scoliosis Spondylosis of lumbosacral spine with radiculopathy Degenerative disc disease, lumbar Hypothyroid Leg cramps Emphysema of lung Iron deficiency anemia Osteoarthritis GERD (gastroesophageal reflux disease) JULIEN (dyspnea on exertion) Diastolic dysfunction Hypertension Surgical History Hx of hand surgery History of carpal tunnel surgery History of left inguinal hernia repair S/P insertion of spinal cord stimulator History of colonoscopy History of lung surgery (~11/2020) History of total right hip arthroplasty (~02/2018) History of hydrocelectomy Hx of tonsillectomy Family History Family History Father No problems noted. Mother No problems noted. Social History Social History Household Members: Spouse Housing: House Are you a primary care administrative tech to a significant other at home: No Do you presently have visiting nurse or other home services: Yes Alcohol intake: never Patient Tobacco Use Status: Never used Tobacco Smoked in Last 30 Days: No e-Cigarette/Vaping Use: Never Used Second Hand Smoke Exposure: No Use of substances other than those prescribed or required for medical reasons: No Advance Directives: No Advance Directives Information Provided: Yes service: No Current occupational status: retired Current occupation: right handed Cognitive needs: No Hearing needs: No Vision needs: No Physical Exam Vital Signs: Vital Signs: Last Vital Signs Temp 98.1 F 07/17/23 18:00 Pulse 51 07/17/23 18:00 Resp 13 07/17/23 18:00 BP 126/87 07/17/23 18:00 Pulse Ox 100 07/17/23 18:00 O2 Del Method Room Air 07/17/23 18:00 BMI result Body Mass Index 26.9 Const: Other: Appearance: Alert. Oriented X3. No acute distress. Eyes: Pupils equal, round and reactive to light. ENT: Pharynx normal. Left eyelid drooping Neck: Normal inspection. Neck supple. No lymph nodes noted. No crepitus CVS: Normal heart rate and rhythm. Pulses normal. Normal S1 and S2 Respiratory: No respiratory distress. Breath sounds normal. No Wheezing. No rales Abdomen: Soft and nontender. No rigidity. No distention. Skin: Skin warm and dry. Normal skin color. Normal skin turgor. Extremities: Patient is unable to lift his arms beyond 30 degrees due to weakness, patient able to lift legs from bed bugs difficulty doing so. Neuro: Oriented X 3. No slurred speech. CN 2 through 12 grossly intact Psych: calm, cooperative, normal affect Course Course Course Narrative: RME - 73 yo male with history of myasthenia gravis (follows w/ Dr. Saez), COPD, HTN, HLD, chronic pain syndrome, GERD who presents to the ER for evaluation of progressive generalized weakness and SOB for the last [address] Saez increased his prednisone from 1mg to 20mg with no improvement. He is also on pyridostigmine. Cannot lift his arms above his head. Feels like he can't catch his breath. No fever or chills but reports body aches. Plan: lab workup, CXR, viral studies Medical Decision Making Medical Decision Making [facility] Narrative: -my interpretation of labs: Hematology and chemistry unremarkable. -patient is significantly symptomatic. Am trying to get in touch with Dr. Saez from Neurology to discuss starting steroids and/or IVIG -also, patient is on a cardiac and O2 monitor, discussed with the patient's nurse to keep a very close eye on the patient as the patient is at high risk of respiratory failure -I discussed the patient with Dr. Saez, patient to be started on IVIG, which will be the 1st infusion for the patient. Patient will be premedicated. -patient signed the blood consent form for IV infusion, risks versus benefits were explained to the patient, patient agreeable. -I discussed the patient with Dr. Sutherland, patient will be going to the ICU for monitoring Differential Diagnosis Differential Diagnoses: The differential diagnosis associated with the presentation includes (Myasthenia gravis, Guillain-Pride, UTI) Admission/Observation Consideration of admission/observation: Escalation of care including admission/observation considered Consult Healthcare Provider Management of the patient was discussed with: Hospitalist and Manager Assurance Lab Data MDM Lab Attestation statement: I reviewed the patient's lab results. 07/17/23 14:20 07/17/23 14:20 Labs: Lab Results 07/17/23 07/17/23 07/17/23 Range/Units 14:17 14:20 18:54 WBC 10.0 (4.8-10.8) X10*3/uL RBC 4.95 (4.60-5.80) X10*6/uL Hgb 14.3 (14.0-18.0) g/dl Hct 43.0 (42.0-52.0) % MCV 86.9 (80.0-98.0) fL MCH 28.9 (27.0-33.0) pg MCHC 33.3 (31.0-36.0) g/dl RDW 15.0 (11.0-16.0) % Plt Count 232 (160-400) X10*3/uL MPV 10.5 (9.4-12.4) fL Immature Gran % (Auto) 0.4 (0.0-0.4) % Neut % (Auto) 68.6 (45-73) % Lymph % (Auto) 19.2 L (20-40) % [place] % (Auto) 8.5 (2-11) % Eos % (Auto) 2.8 (0-4) % Baso % (Auto) 0.5 (0-2) % Lymph # (Auto) 1.9 (1.2-4.9) X10*3/uL [place] # (Auto) 0.9 (0.1-1.2) X10*3/uL Eos # (Auto) 0.3 (0.0-0.4) X10*3/uL Baso # (Auto) 0.1 (0.0-0.2) X10*3/uL Abs Immat Gran (auto) 0.04 H (0.00-0.03) X10*3/uL Absolute Neuts (auto) 6.9 (2.0-8.3) x10*3/uL Absolute Nucleated RBC 0.000 (0.0-0.012) X10*3/uL Nucleated RBC % (auto) 0.0 (0.0-0.2) /100WBC VBG pH (7.32-7.43) VBG pCO2 mmHg VBG pO2 mmHg VBG HCO3 (22-26) mmol/L VBG O2 Saturation % VBG Base Excess mmol/L Sodium 141 (135-145) mmol/L Potassium 4.2 (3.3-5.1) mmol/L Chloride 107 (96-108) mmol/L Carbon Dioxide 24 (22-29) mmol/L Anion Gap 14 (12-20) BUN 21 H (9-16) mg/dL Creatinine 0.83 (0.5-1.4) mg/dL Estim Creat Clear Calc 88.2 Estimated GFR > 60 Random Glucose 116 H (60-115) mg/dL Calcium 9.5 (8.4-10.2) mg/dL Magnesium 2.0 (1.6-2.6) mg/dL Total Bilirubin 0.4 (0.0-1.0) mg/dL Direct Bilirubin 0.2 (0.0-0.5) mg/dL AST 24 (5-37) U/L ALT 31 (0-40) U/L Alkaline Phosphatase 88 (39-117) U/L Total Protein 7.0 (6.5-8.0) g/dL Albumin 4.1 (3.5-5.0) g/dL Urine Color Yellow Urine Appearance Clear Urine pH 6.0 (5.0-9.0) Ur Specific [place] 1.025 (1.005-1.025) Urine Protein Negative (Neg-Trace) mg/dL Urine Glucose (UA) Negative (Negative) mg/dL Urine Ketones Negative (Negative) mg/dL Urine Blood Negative (Negative) Urine Nitrite Negative (Negative) Ur Leukocyte Esterase Negative (Negative) Influenza Type A (PCR) NEGATIVE (Negative) Influenza Type B (PCR) NEGATIVE (Negative) RSV RNA Qual (PCR) NEGATIVE (Negative) SARS-CoV-2 RNA (RT-PCR) NEGATIVE (Negative) 07/17/23 Range/Units 19:02 WBC (4.8-10.8) X10*3/uL RBC (4.60-5.80) X10*6/uL Hgb (14.0-18.0) g/dl Hct (42.0-52.0) % MCV (80.0-98.0) fL MCH (27.0-33.0) pg MCHC (31.0-36.0) g/dl RDW (11.0-16.0) % Plt Count (160-400) X10*3/uL MPV (9.4-12.4) fL Immature Gran % (Auto) (0.0-0.4) % Neut % (Auto) (45-73) % Lymph % (Auto) (20-40) % [place] % (Auto) (2-11) % Eos % (Auto) (0-4) % Baso % (Auto) (0-2) % Lymph # (Auto) (1.2-4.9) X10*3/uL [place] # (Auto) (0.1-1.2) X10*3/uL Eos # (Auto) (0.0-0.4) X10*3/uL Baso # (Auto) (0.0-0.2) X10*3/uL Abs Immat Gran (auto) (0.00-0.03) X10*3/uL Absolute Neuts (auto) (2.0-8.3) x10*3/uL Absolute Nucleated RBC (0.0-0.012) X10*3/uL Nucleated RBC % (auto) (0.0-0.2) /100WBC VBG pH 7.41 (7.32-7.43) VBG pCO2 47 mmHg VBG pO2 33 mmHg VBG HCO3 30 H (22-26) mmol/L VBG O2 Saturation 46.0 % VBG Base Excess 5.1 mmol/L Sodium (135-145) mmol/L Potassium (3.3-5.1) mmol/L Chloride (96-108) mmol/L Carbon Dioxide (22-29) mmol/L Anion Gap (12-20) BUN (9-16) mg/dL Creatinine (0.5-1.4) mg/dL Estim Creat Clear Calc Estimated GFR Random Glucose (60-115) mg/dL Calcium (8.4-10.2) mg/dL Magnesium (1.6-2.6) mg/dL Total Bilirubin (0.0-1.0) mg/dL Direct Bilirubin (0.0-0.5) mg/dL AST (5-37) U/L ALT (0-40) U/L Alkaline Phosphatase (39-117) U/L Total Protein (6.5-8.0) g/dL Albumin (3.5-5.0) g/dL Urine Color Urine Appearance Urine pH (5.0-9.0) Ur Specific [place] (1.005-1.025) Urine Protein (Neg-Trace) mg/dL Urine Glucose (UA) (Negative) mg/dL Urine Ketones (Negative) mg/dL Urine Blood (Negative) Urine Nitrite (Negative) Ur Leukocyte Esterase (Negative) Influenza Type A (PCR) (Negative) Influenza Type B (PCR) (Negative) RSV RNA Qual (PCR) (Negative) SARS-CoV-2 RNA (RT-PCR) (Negative) Critical Care Time Critical Care Time Critical Care Time: Yes Total Critical Care Time: 60 Attestation: I have personally provided critical care time. Time includes review of lab data, radiology results, discussion with consultants, and monitoring for potential decompensation. Intervention performed as documented. Discharge Plan Discharge Clinical Impression: Myasthenia gravis with exacerbation Patient Disposition: Admitted As Inpatient Prescriptions: No Action nitroglycerin 0.4 mg tablet, sublingual 0.4 mg sublingual Q5M PRN (Reason: chest pain) Qty: 30 0RF Rx Instructions: do not exceed 3 doses per episode albuterol sulfate [Ventolin HFA] 90 mcg/actuation HFA aerosol inhaler 2 puff inhalation Q4-6H PRN (Reason: Wheezing) Qty: 18 0RF levothyroxine 50 mcg tablet 50 mcg PO DAILY 30 Days Qty: 90 3RF aspirin [Enteric Coated Aspirin] 81 mg tablet,delayed release (DR/EC) 81 mg PO DAILY Qty: 90 3RF Stiolto Respimat 2.5-2.5 mcg/actuation mist 2 puff PO DAILY Qty: 4 3RF lisinopril 20 mg tablet 20 mg PO DAILY Qty: 90 2RF omeprazole 20 mg capsule,delayed release(DR/EC) 20 mg PO DAILY Qty: 90 1RF rosuvastatin [Crestor] 5 mg tablet 5 mg PO DAILY Qty: 60 3RF acetaminophen [Tylenol] 325 mg Tablet 650 mg PO Q6H PRN (Reason: Pain) multivitamin Capsule 1 cap PO DAILY oxycodone-acetaminophen 5-325 mg tablet 1 tab PO Q6H PRN (Reason: pain) Qty: 5 0RF Rx Instructions: Partial Fill upon patient request. mirabegron 25 mg tablet extended release 24 hr 25 mg PO DAILY clotrimazole-betamethasone 1-0.05 % cream 1 applic topical DAILY pyridostigmine bromide 60 mg tablet 60 mg PO TID prednisone 1 mg tablet 1 mg PO DAILY prednisone 2.5 mg tablet 1 mg PO DAILY
--- NOTE | 2023-07-17 14:12 | ECG_ITS ---
Test Reason : weakness Blood Pressure : / mmHG Vent. Rate : 061 BPM Atrial Rate : 061 BPM P-R Int : 214 ms QRS Dur : 142 ms QT Int : 468 ms P-R-T Axes : 025 120 -44 degrees QTc Int : 471 ms Sinus rhythm with 1st degree A-V block Non-specific intra-ventricular conduction block T wave abnormality, consider inferior ischemia Abnormal ECG When compared with ECG of 05-OCT-2022 16:56, No significant change was found Referred By: Tere Goodman Electronically Signed By:OLIVE WYMAN
[2023-07-17 14:26] LABS: MANUAL DIFF FLAG NO
[2023-07-17 14:28] LABS: Basophils Absolute Auto 0.1 X10*3/uL (0.0-0.2); Basophils Percent Auto 0.5 % (0-2); Eosinophils Absolute Auto 0.3 X10*3/uL (0.0-0.4); Eosinophils Percent Auto 2.8 % (0-4); Hemoglobin 14.3 g/dl (14.0-18.0); Imm Gran Abs Auto 0.04 X10*3/uL (0.00-0.03); Imm Gran Pct Auto 0.4 % (0.0-0.4); Lymphocytes Absolute Auto 1.9 X10*3/uL (1.2-4.9); Lymphocytes Percent Auto 19.2 % (20-40); Mean Corpuscular HGB Conc 33.3 g/dl (31.0-36.0); Mean Corpuscular Hemoglobin 28.9 pg (27.0-33.0); Mean Corpuscular Volume 86.9 fL (80.0-98.0); Mean Platelet Volume 10.5 fL (9.4-12.4); Monocytes Absolute Auto 0.9 X10*3/uL (0.1-1.2); Monocytes Percent Auto 8.5 % (2-11); Neutrophils Absolute Auto 6.9 x10*3/uL (2.0-8.3); Neutrophils Percent Auto 68.6 % (45-73); Platelet Count 232 X10*3/uL (160-400); Red Blood Count 4.95 X10*6/uL (4.60-5.80)
[2023-07-17 14:43] LABS: Alanine Aminotransferase 31 U/L (0-40); Albumin Level 4.1 g/dL (3.5-5.0); Alkaline Phosphatase 88 U/L (39-117); Anion Gap 14 (12-20); Aspartate Amino Transferase 24 U/L (5-37); Bilirubin Direct 0.2 mg/dL (0.0-0.5); Bilirubin Total 0.4 mg/dL (0.0-1.0); Blood Urea Nitrogen 21 mg/dL (9-16); Calcium 9.5 mg/dL (8.4-10.2); Carbon Dioxide 24 mmol/L (22-29); Chloride 107 mmol/L (96-108); Creatinine Clr Calc Pharmacy 88.2; Estimated Glomerular Filt Rate > 60; Glucose Random 116 mg/dL (60-115); Potassium 4.2 mmol/L (3.3-5.1); Sodium 141 mmol/L (135-145)
[2023-07-17 15:28] LABS: Influenza A PCR NEGATIVE (Negative); Influenza B PCR NEGATIVE (Negative); Resp Syncy Virus RNA Qual PCR NEGATIVE (Negative); SARS COV2 PCR INHOUSE NEGATIVE (Negative)
[2023-07-17 18:00] VITALS: BP 126/87; PULSE 51; RESP 13; TEMP 36.7; O2SAT 100
--- NOTE | 2023-07-17 18:39 | PC.NURSE ---
pt talking, +o2 sat on RA. hr 40s- no edema/cp/dizziness/sob. +CMS. 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
[2023-07-17 19:00] LABS: Appearance Urine Clear; Color Urine Yellow; Glucose Urine UA Negative (Negative); Leukocyte Esterase Urine Negative (Negative); Nitrite Urine Negative (Negative); Specific Gravity - Urine 1.025 (1.005-1.025); Urine Blood Negative (Negative); Urine Ketones Negative (Negative); Urine Protein Negative (Neg-Trace)
[2023-07-17 19:06] LABS: Venous Blood Gas Refer to POC result
[2023-07-17 19:07] LABS: VBG Base Excess 5.1 mmol/L; VBG HCO3 30 mmol/L (22-26); VBG pCO2 47 mmHg; VBG pH 7.41 (7.32-7.43); VBG pO2 33 mmHg
--- NOTE | 2023-07-17 19:31 | PC.NURSE ---
per DNP ED RN not admin pre-IV IG meds orIV IG- will be given in ICU when brought to floor once pt gets bed. airway remains intact, able to talk, +CMS. +bp.
--- NOTE | 2023-07-17 19:39 | P.HPCC_ITS ---
History of Present Illness Date of Service: 07/17/23 Attending physician on admission: Mel Sutherland Chief Complaint: Dyspnea The patient is a 73-year-old male with a past medical history of myasthenia gravis,? hypertension, diastolic dysfunction, COPD, Spondylosis of lumbosacral spine with radiculopathy,? hypothyroidism, hyperlipidemia, and adrenal insufficiency who presented to the emergency room with difficulty breathing. Patient reports worsening myasthenia gravis symptoms for about a month, he has gradually been becoming more weak. However, 2 weeks ago patient started noticing worsening weakness in his arms and legs. One week ago he went to see his neurologist, Dr. Saez, and prednisone dose from 10mg to 20mg was increased. Today, the patient states that he can barely lift his arms up, has drooping on the left eyelid and for the last 2 days, and worsening dyspnea.? ?In the emergency room vital signs stable,? laboratory data? unremarkable.? Chest x-ray with no acute findings.? On exam reports not able to lift his arms above his head, and some dyspnea.? ? Neurology was consulted by ED? physician, Dr Saez, patient to be started on IVIG, which will be the 1st infusion for the patient. Patient will be premedicated. ? Patient jm admitted to ICU for hemodynamic the monitoring? 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) Back pain Arthritis Chronic pain syndrome Spondylosis of lumbosacral region Disc degeneration, lumbar Hyperglycemia Abdominal pain Pulmonary nodule Hyperlipidemia Toe ulcer Iatrogenic adrenal insufficiency Multinodular thyroid COPD (chronic obstructive pulmonary disease) Myasthenia gravis Scoliosis Spondylosis of lumbosacral spine with radiculopathy Degenerative disc disease, lumbar Hypothyroid Leg cramps Emphysema of lung Iron deficiency anemia Osteoarthritis GERD (gastroesophageal reflux disease) JULIEN (dyspnea on exertion) Diastolic dysfunction Hypertension Family History Family History Father No problems noted. Mother No problems noted. Surgical History Surgical History Hx of hand surgery History of carpal tunnel surgery History of left inguinal hernia repair S/P insertion of spinal cord stimulator History of colonoscopy History of lung surgery (~11/2020) History of total right hip arthroplasty (~02/2018) History of hydrocelectomy Hx of tonsillectomy Social History Social History Household Members: Spouse Housing: House Are you a primary technical healthcare consultant to a significant other at home: No Do you presently have visiting nurse or other home services: No Alcohol intake: never Patient Tobacco Use Status: Never used Tobacco Smoked in Last 30 Days: No e-Cigarette/Vaping Use: Never Used Second Hand Smoke Exposure: No Use of substances other than those prescribed or required for medical reasons: No Currently Displaying Signs/Symptoms of Drug Intoxication Withdrawal: No Have you been hit, kicked, punched, or otherwise hurt by someone within the past year? If so, by whom?: No Do you feel safe in your current relationship?: Yes Is there a partner from a previous relationship who is making you feel unsafe now?: No Are you made to feel afraid or neglected: No Advance Directives: No Advance Directives Information Provided: Yes Do you have thoughts of harming others: None Do you have a plan to hurt others: No Plan Recently lost weight without trying: No Nutrition Risks: No Nutritional Risk Poor oral hygiene: No service: No Current occupational status: retired Current occupation: right handed Cognitive needs: No Hearing needs: No Vision needs: No Meds Allergies Allergy/AdvReac Type Severity Reaction Status Date / Time No Known Allergies Allergy Verified 06/20/23 09:54 [No Known Allergies*] Active Medications: Current Medications Acetaminophen (Acetaminophen 325 Mg Tablet) 650 mg PO DAILY@2029 [facility] Stop: 07/21/23 20:31 Diphenhydramine HCl (Diphenhydramine Hcl 50 Mg/Ml Vial) 25 mg IVPUSH DAILY@2029 [facility] Stop: 07/21/23 20:31 Enoxaparin Sodium (Enoxaparin Sodium 40 Mg/0.4 Ml Syringe) 40 mg SUBCUT Q24H [facility] Immune Globulin (Gammagard 10%) 50 mls @ 45 mls/hr IV DAILY@2099 [facility] Stop: 07/21/23 22:07 Immune Globulin (Gammagard 10%) 200 mls @ 45 mls/hr IV DAILY@0030 [facility] Stop: 07/22/23 04:57 Immune Globulin (Gammagard 10%) 100 mls @ 45 mls/hr IV DAILY@2210 [facility] Stop: 07/22/23 00:24 Methylprednisolone Sodium Succinate (Methylprednisolone Sod Succ 40 Mg/Ml Vial) 40 mg IVPUSH DAILY@2030 [facility] Stop: 07/21/23 20:31 Home Medications Medication Instructions Recorded Confirmed Last Taken Type clotrimazole-betamethasone 1 1 applic topical DAILY PRN Rash 08/18/20 07/17/23 Unknown History %-0.05 % topical cream acetaminophen 325 mg tablet 650 mg PO Q6H PRN Pain 08/28/20 07/17/23 10/04/22 History (Tylenol) multivitamin 1 cap PO DAILY 08/28/20 07/17/23 07/17/23 History pyridostigmine bromide 60 mg tablet 60 mg PO TID 01/27/21 07/17/23 07/17/23 History mirabegron 25 mg tablet,extended 25 mg PO DAILY 06/12/23 07/17/23 07/17/23 History release 24 hr prednisone 20 mg tablet 20 mg PO DAILY 07/17/23 07/17/23 07/17/23 History Physical Exam 2 Vital Signs: Vital Signs: Last Vital Signs Temp 98.1 F 07/17/23 18:00 Pulse 51 07/17/23 18:00 Resp 13 07/17/23 18:00 BP 126/87 07/17/23 18:00 Pulse Ox 100 07/17/23 18:00 O2 Del Method Room Air 07/17/23 18:00 BMI result Body Mass Index 26.9 Constitutional: No acute distress, well-developed, alert and oriented x 3 HEENT: No hearing loss, sneezing, congestion, runny nose or sore throat. No vision change or blurred vision/ double vision Respiratory:? Lung CTA bilaterally, no wheezes, rhonchi, or rales Cardiac: RRR, +S1/S2, no murmurs/rubs, pulses palpable and equal in all extremities Gastrointestinal: +BS, non-tender to palpation, non-distended Neurologic:? Neurological exam,? The patient is alert, attentive, and oriented. Speech is clear and fluent with good repetition, comprehension, and naming. There is slight ptosis of the left eye. No facial droop. ? Motor: slight Left arm weakness compared to the left. Muscle bulk and tone are normal. Sensory: Sensation intact bilaterally Coordination:Rapid alternating movements and fine finger movements are intact. There are no abnormal or extraneous movements.? Skin: No rashes or lesions. No petechiae or purpura. ] Musculoskeletal: Chronic back pain Heme/Lymphatics/Immun: Palpation of neck reveals no swelling or tenderness of neck nodes. Psychiatric: Normal mood and affect Results Labs 07/18/23 04:27 07/18/23 04:27 Labs: Laboratory Results - last 24 hr 07/17/23 07/17/23 07/17/23 14:17 14:20 18:54 MCV 86.9 MCH 28.9 MCHC 33.3 RDW 15.0 Plt Count 232 MPV 10.5 Immature Gran % (Auto) 0.4 Neut % (Auto) 68.6 Lymph % (Auto) 19.2 L [place] % (Auto) 8.5 Eos % (Auto) 2.8 Baso % (Auto) 0.5 Lymph # (Auto) 1.9 [place] # (Auto) 0.9 Eos # (Auto) 0.3 Baso # (Auto) 0.1 Abs Immat Gran (auto) 0.04 H Absolute Neuts (auto) 6.9 Absolute Nucleated RBC 0.000 Nucleated RBC % (auto) 0.0 VBG pH VBG pCO2 VBG pO2 VBG HCO3 VBG O2 Saturation VBG Base Excess Anion Gap 14 Estim Creat Clear Calc 88.2 Estimated GFR > 60 Random Glucose 116 H Calcium 9.5 Magnesium 2.0 Total Bilirubin 0.4 Direct Bilirubin 0.2 AST 24 ALT 31 Alkaline Phosphatase 88 Total Protein 7.0 Albumin 4.1 Urine Color Yellow Urine Appearance Clear Urine pH 6.0 Ur Specific [place] 1.025 Urine Protein Negative Urine Glucose (UA) Negative Urine Ketones Negative Urine Blood Negative Urine Nitrite Negative Ur Leukocyte Esterase Negative Influenza Type A (PCR) NEGATIVE Influenza Type B (PCR) NEGATIVE RSV RNA Qual (PCR) NEGATIVE SARS-CoV-2 RNA (RT-PCR) NEGATIVE 07/17/23 19:02 MCV MCH MCHC RDW Plt Count MPV Immature Gran % (Auto) Neut % (Auto) Lymph % (Auto) [place] % (Auto) Eos % (Auto) Baso % (Auto) Lymph # (Auto) [place] # (Auto) Eos # (Auto) Baso # (Auto) Abs Immat Gran (auto) Absolute Neuts (auto) Absolute Nucleated RBC Nucleated RBC % (auto) VBG pH 7.41 VBG pCO2 47 VBG pO2 33 VBG HCO3 30 H VBG O2 Saturation 46.0 VBG Base Excess 5.1 Anion Gap Estim Creat Clear Calc Estimated GFR Random Glucose Calcium Magnesium Total Bilirubin Direct Bilirubin AST ALT Alkaline Phosphatase Total Protein Albumin Urine Color Urine Appearance Urine pH Ur Specific [place] Urine Protein Urine Glucose (UA) Urine Ketones Urine Blood Urine Nitrite Ur Leukocyte Esterase Influenza Type A (PCR) Influenza Type B (PCR) RSV RNA Qual (PCR) SARS-CoV-2 RNA (RT-PCR) Imaging Radiologist's Impressions: Impressions Chest X-Ray 07/17/23 14:49 IMPRESSION: No evidence for acute disease in the chest. Assessment and Plan (1) Myasthenia gravis with exacerbation: Status: Acute Plan 73-year-old with extensive medical history pertinent diagnosis of myasthenia gravis being admitted to ICU for myasthenia gravis exacerbation requiring IVIG ? Myasthenia gravis exacerbation:? patient has been having worsening myasthenia gravis symptoms for x 1 month,? On Pyridostigmine 60 TID, seen by a neurologist 1 week ago and prednisone was increased but continued to have worsening symptoms.? On assessment patient only has slight left eye ptosis and mild weakness of left arm.? Neurology advised initiation of IVIG,? this was reviewed with pharmacy? and patient will be premedicated.? Will add Nif and vital cap test prior to infusion. Also add ? Acetylcholine ab.? Prophylaxis:? Lovenox Code status:? FULL CODE? Critical care? time: x? 30 minutes of critical care Case discussed with attending physician Dr Sutherland Time Spent With Patient Time: Total time managing care of this patient today ____ minutes.
--- NOTE | 2023-07-17 19:52 | PHA.MEDREC ---
Pharmacy Consult ? Medication Reconciliation Pharmacy has completed the medication reconciliation. Patient confirmed medicaitons, reports he is only on once medicaiton from Dr. Adams, rejiertriq is more recent than imipramine. Siena Sheldon, PharmD
--- NOTE | 2023-07-17 20:27 | PC.NURSE ---
gave report to agricultural equipment salesperson- contacting transport w dry pan charger
[2023-07-17 20:33] VITALS: BP 130/63; PULSE 53; RESP 17; TEMP 36.6; O2SAT 97
[2023-07-17] MEDS: methylPREDNISolone Sod Succ 40 MG/ML VIAL IVPUSH (20:55)
[2023-07-17] MEDS: diphenhydrAMINE HCL 50 MG/ML VIAL 25 MG IVPUSH (20:55)
[2023-07-17] MEDS: Acetaminophen 325 MG TABLET 650 MG PO (20:55)
[2023-07-17 21:00] VITALS: BP 124/91; PULSE 52; RESP 12; TEMP 36.6; O2SAT 98
--- NOTE | 2023-07-17 21:00 | PC.RT ---
NIF & VC results as follows; 2049 VC x2 attempts with good effort 2.85L and 2.5L 2054 NIF x2 attempts with good effort >[id number]
[2023-07-17 22:00] VITALS: BP 128/70; PULSE 52; RESP 13; O2SAT 97
[2023-07-17] MEDS: Immun Glob G(IgG)/Gly/IGA Ov50 100 ML IV (22:40)
[2023-07-17 23:00] VITALS: BP 120/78; PULSE 55; RESP 17; TEMP 36.6; O2SAT 96
[2023-07-18] VITALS (28 sets, daily range): BP systolic 97–141; BP diastolic 57–84; PULSE 52–75; RESP 12–22; TEMP 36.4–36.9; O2SAT 93–99; BMI 26.9
[2023-07-18] MEDS: Immun Glob G(IgG)/Gly/IGA Ov50 200 ML IV ×2 (00:55→23:53)
--- NOTE | 2023-07-18 03:31 | PC.RT ---
NIF & VC results as follows; 0328 VC x3 attempts with fair effort 2.53L 0331 NIF x2 attempts with fair effort >[id number]
[2023-07-18 04:31] LABS: VBG Base Excess 0.5 mmol/L; VBG HCO3 23 mmol/L (22-26); VBG pCO2 32 mmHg; VBG pH 7.46 (7.32-7.43); VBG pO2 77 mmHg
[2023-07-18 04:33] LABS: MANUAL DIFF FLAG NO
[2023-07-18 04:38] LABS: Basophils Percent Auto 0.3 % (0-2); Eosinophils Percent Auto 0.1 % (0-4); Hematocrit 42.9 % (42.0-52.0); Hemoglobin 14.2 g/dl (14.0-18.0); Imm Gran Abs Auto 0.02 X10*3/uL (0.00-0.03); Imm Gran Pct Auto 0.3 % (0.0-0.4); Lymphocytes Absolute Auto 0.6 X10*3/uL (1.2-4.9); Lymphocytes Percent Auto 7.7 % (20-40); Mean Corpuscular HGB Conc 33.1 g/dl (31.0-36.0); Mean Corpuscular Hemoglobin 28.9 pg (27.0-33.0); Mean Corpuscular Volume 87.4 fL (80.0-98.0); Mean Platelet Volume 11.1 fL (9.4-12.4); Monocytes Absolute Auto 0.1 X10*3/uL (0.1-1.2); Monocytes Percent Auto 1.7 % (2-11); Neutrophils Absolute Auto 6.9 x10*3/uL (2.0-8.3); Neutrophils Percent Auto 89.9 % (45-73); Platelet Count 224 X10*3/uL (160-400); Red Blood Count 4.91 X10*6/uL (4.60-5.80); Red Cell Distribution Width 14.9 % (11.0-16.0); White Blood Count 7.6 X10*3/uL (4.8-10.8)
[2023-07-18 04:45] LABS: Venous Blood Gas Refer to POC result
[2023-07-18 05:06] LABS: Alanine Aminotransferase 26 U/L (0-40); Albumin Level 3.7 g/dL (3.5-5.0); Alkaline Phosphatase 83 U/L (39-117); Anion Gap 11 (12-20); Aspartate Amino Transferase 21 U/L (5-37); Bilirubin Total 0.6 mg/dL (0.0-1.0); Blood Urea Nitrogen 21 mg/dL (9-16); Calcium 8.8 mg/dL (8.4-10.2); Carbon Dioxide 24 mmol/L (22-29); Chloride 106 mmol/L (96-108); Creatinine Clr Calc Pharmacy 100.3; Estimated Glomerular Filt Rate > 60; Glucose Random 124 mg/dL (60-115); Magnesium 2.2 mg/dL (1.6-2.6); Phosphorus 4.7 mg/dL (2.7-4.5); Potassium 4.5 mmol/L (3.3-5.1); Sodium 136 mmol/L (135-145); Total Protein 7.1 g/dL (6.5-8.0)
[2023-07-18 05:21] LABS: Thyroid Stimulating Hormone 1.09 uIU/mL (0.32-4.0)
[2023-07-18] MEDS: Levothyroxine Sodium 50 MCG TABLET PO (06:13)
[2023-07-18] MEDS: pyRIDostigmine bromide 60 MG TABLET PO ×3 (08:44→21:04)
--- NOTE | 2023-07-18 10:51 | PM.NEUROCN ---
History of Present Illness Data of Consult Service Date: 07/18/23 Primary Care Provider: Gifty Frankel MD [facility] Reason for consult: Myasthenia gravis 73 years old man with hypertension hyperlipidemia coronary artery disease low back pain treated with a spinal cord stimulator and antibody positive myasthenia gravis that initially presented with double vision in 2019. Recently his overall situation with myasthenia was getting worse and he was complaining of weakness, lethargy, worsening double vision and blurred vision. His dose of prednisone was increased to 20 mg a day with pyridostigmine. He continued to complain of worsening problem and came to emergency room and then was admitted for myasthenia gravis axis or base haile. Last night he received 1st dose of IVIG. He was feeling somewhat better but still weak. He was also under stress related to his 's illness was suffered from dementia. 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) Back pain Arthritis Chronic pain syndrome Spondylosis of lumbosacral region Disc degeneration, lumbar Hyperglycemia Abdominal pain Pulmonary nodule Hyperlipidemia Toe ulcer Iatrogenic adrenal insufficiency Multinodular thyroid COPD (chronic obstructive pulmonary disease) Myasthenia gravis Scoliosis Spondylosis of lumbosacral spine with radiculopathy Degenerative disc disease, lumbar Hypothyroid Leg cramps Emphysema of lung Iron deficiency anemia Osteoarthritis GERD (gastroesophageal reflux disease) JULIEN (dyspnea on exertion) Diastolic dysfunction Hypertension Family History Family History Father No problems noted. Mother No problems noted. Surgical History Surgical History Hx of hand surgery History of carpal tunnel surgery History of left inguinal hernia repair S/P insertion of spinal cord stimulator History of colonoscopy History of lung surgery (~11/2020) History of total right hip arthroplasty (~02/2018) History of hydrocelectomy Hx of tonsillectomy Social History Social History Household Members: Spouse Housing: House Are you a primary home care and home health aides teacher to a significant other at home: No Do you presently have visiting nurse or other home services: No Alcohol intake: never Patient Tobacco Use Status: Never used Tobacco Smoked in Last 30 Days: No e-Cigarette/Vaping Use: Never Used Second Hand Smoke Exposure: No Use of substances other than those prescribed or required for medical reasons: No Currently Displaying Signs/Symptoms of Drug Intoxication Withdrawal: No Have you been hit, kicked, punched, or otherwise hurt by someone within the past year? If so, by whom?: No Do you feel safe in your current relationship?: Yes Is there a partner from a previous relationship who is making you feel unsafe now?: No Are you made to feel afraid or neglected: No Advance Directives: No Advance Directives Information Provided: Yes Do you have thoughts of harming others: None Do you have a plan to hurt others: No Plan Recently lost weight without trying: No Nutrition Risks: No Nutritional Risk Poor oral hygiene: No service: No Current occupational status: retired Current occupation: right handed Cognitive needs: No Hearing needs: No Vision needs: No Meds Allergies Allergy/AdvReac Type Severity Reaction Status Date / Time No Known Allergies Allergy Verified 06/20/23 09:54 [No Known Allergies*] Active Medications: Current Medications Acetaminophen (Acetaminophen 325 Mg Tablet) 650 mg PO DAILY@2029 [facility] Stop: 07/21/23 20:31 Last Admin: 07/17/23 20:55 Dose: 650 mg Diphenhydramine HCl (Diphenhydramine Hcl 50 Mg/Ml Vial) 25 mg IVPUSH DAILY@2029 [facility] Stop: 07/21/23 20:31 Last Admin: 07/17/23 20:55 Dose: 25 mg Enoxaparin Sodium (Enoxaparin Sodium 40 Mg/0.4 Ml Syringe) 40 mg SUBCUT Q24H [facility] Last Admin: 07/17/23 23:08 Dose: Not Given Immune Globulin (Gammagard 10%) 50 mls @ 45 mls/hr IV DAILY@2099 [facility] Stop: 07/21/23 22:07 Last Infusion: 07/17/23 22:40 Dose: Infused Immune Globulin (Gammagard 10%) 200 mls @ 45 mls/hr IV DAILY@0030 [facility] Stop: 07/22/23 04:57 Last Infusion: 07/18/23 05:48 Dose: Infused Immune Globulin (Gammagard 10%) 100 mls @ 45 mls/hr IV DAILY@2210 [facility] Stop: 07/22/23 00:24 Last Infusion: 07/18/23 00:54 Dose: Infused Levothyroxine Sodium (Levothyroxine Sodium 50 Mcg Tablet) 50 mcg PO DAILY@0600 [facility] Last Admin: 07/18/23 06:13 Dose: 50 mcg Methylprednisolone Sodium Succinate (Methylprednisolone Sod Succ 40 Mg/Ml Vial) 40 mg IVPUSH DAILY@2030 [facility] Stop: 07/21/23 20:31 Last Admin: 07/17/23 20:55 Dose: 40 mg Oxycodone HCl (Oxycodone Hcl Immed Release 5 Mg Tablet) 5 mg PO Q6H PRN PRN Reason: pain Pyridostigmine Ducor (Pyridostigmine Ducor 60 Mg Tablet) 60 mg PO TID [facility] Last Admin: 07/18/23 08:44 Dose: 60 mg Home Medications Medication Instructions Recorded Confirmed Last Taken Type clotrimazole-betamethasone 1 1 applic topical DAILY PRN Rash 08/18/20 07/17/23 Unknown History %-0.05 % topical cream acetaminophen 325 mg tablet 650 mg PO Q6H PRN Pain 08/28/20 07/17/23 10/04/22 History (Tylenol) multivitamin 1 cap PO DAILY 08/28/20 07/17/23 07/17/23 History pyridostigmine bromide 60 mg tablet 60 mg PO TID 01/27/21 07/17/23 07/17/23 History mirabegron 25 mg tablet,extended 25 mg PO DAILY 06/12/23 07/17/23 07/17/23 History release 24 hr prednisone 20 mg tablet 20 mg PO DAILY 07/17/23 07/17/23 07/17/23 History Physical Exam Vital Signs: Vital Signs: Last Vital Signs Temp 98.2 F 07/18/23 08:00 Pulse 61 07/18/23 10:00 Resp 16 07/18/23 10:00 BP 97/57 L 07/18/23 10:00 Pulse Ox 95 07/18/23 10:00 O2 Del Method Room Air 07/18/23 10:00 BMI result Body Mass Index 26.9 Neuro: Other: He is alert and awake with normal spontaneity of speech fluency comprehension and somewhat flat affect. There is mild left-sided ptosis. Face is symmetrical. Giveaway type of weakness is noted in upper extremities. His pulmonary test have not reveal an of severity to suggest possibility of intubation. Results Labs 07/18/23 04:27 07/18/23 04:27 Labs: Short CBC 07/17/23 07/18/23 Range/Units 14:20 04:27 WBC 10.0 7.6 (4.8-10.8) X10*3/uL Hgb 14.3 14.2 (14.0-18.0) g/dl Hct 43.0 42.9 (42.0-52.0) % Plt Count 232 224 (160-400) X10*3/uL BMP 07/17/23 07/18/23 14:20 04:27 Sodium 141 136 Potassium 4.2 4.5 Chloride 107 106 Carbon Dioxide 24 24 BUN 21 H 21 H Creatinine 0.83 0.73 Calcium 9.5 8.8 D Liver Function 07/17/23 07/18/23 Range/Units 14:20 04:27 Total Bilirubin 0.4 0.6 (0.0-1.0) mg/dL Direct Bilirubin 0.2 (0.0-0.5) mg/dL AST 24 21 (5-37) U/L ALT 31 26 (0-40) U/L Alkaline Phosphatase 88 83 (39-117) U/L Albumin 4.1 3.7 (3.5-5.0) g/dL Urine 07/17/23 Range/Units 18:54 Urine Color Yellow Urine Appearance Clear Urine pH 6.0 (5.0-9.0) Ur Specific [place] 1.025 (1.005-1.025) Urine Protein Negative (Neg-Trace) mg/dL Urine Glucose (UA) Negative (Negative) mg/dL Assessment and Plan (1) Myasthenia gravis with exacerbation: Status: Acute 73 years old man with hypertension, coronary artery disease, back pain treated with spinal cord stimulator, depression and stress related to his 's illness, and antibody positive myasthenia gravis. His myasthenia symptoms recently worsened and he was in ICU and received 1st dose of IVIG yesterday. At this time he seems stable, and my recommendation is to continue IVIG for 5 days and prednisone 20 mg daily with pyridostigmine. Appropriate DVT prophylaxis in PT OT consultation is recommended. Finally, his previous chest CT 3 years ago had shown right lower lung mass with adenopathy, which might need re-evaluation. Time Spent With Patient Time: Total time managing care of this patient today ____ minutes. Procedures Date of Service Date of Service: 07/18/23
--- NOTE | 2023-07-18 11:31 | MHC.CM.PN ---
Met with pt to discuss d/c planning: pt resides with spouse who has dementia per pt and is unable to remain alone. She is staying w/her sister at this time. Pt states he has no DME or services. He drove self to [facility] and his vehicle is in the ED lot. Discussed HCP, pt declined to complete stating, I would normally choose my but she isn't able to make her own decisions. Pt states he will think about proxy completion. No additional services are anticiapted at this time - pt to drive self to home and f/u w/Dr. Frankel as an outpt.
--- NOTE | 2023-07-18 15:38 | PM.CCPN ---
Subjective Subjective Date of Service: 07/18/23 Interval History: 73-year-old male diagnosis of myasthenia gravis which was receptor antibody positive made 3 years ago since been on pyridostigmine 60 mg t.i.d. and maintenance prednisone recently raised from 10-20 mg daily but with worsening diplopia recently increasing dyspnea as well as left-sided ptosis and some left upper extremity weakness we obtained a baseline blood gas with pCO2 of 32 and baseline vital capacities which are greater than 20 cc/kilos 0 and negative inspiratory force all exceeding my -30 cm of water and and that is been consistent even on repetitive testing he does not seem to prematurely fatigue he can swallow he has no dysphagia it was decided that he would receive IV immunoglobulin 1st dose without consequence yesterday and he will have a 2nd of a series of 5 doses beginning tonight bedside echo shows globally normal left ventricular systolic wall motion with no primary valve or pericardial disease Critical Care Time (minutes): 45 Physical Exam Vital Signs: Vital Signs: Last Vital Signs Temp 98.2 F 07/18/23 08:00 Pulse 55 07/18/23 15:00 Resp 20 07/18/23 15:00 BP 112/67 07/18/23 15:00 Pulse Ox 95 07/18/23 15:00 O2 Del Method Room Air 07/18/23 15:00 BMI result Body Mass Index 26.9 awake alert with good cognitive function and nonfocal neurologically but he does have been an occasional eye bedolla diplopia cardiac exam by echo as I mentioned chest without adventitious sounds certainly no wheezing no accessory muscle effort abdomen benign with no organomegaly nontender and no peripheral edema and excellent peripheral pulses Objective Data Labs 07/18/23 04:27 07/18/23 04:27 Labs: Laboratory Results - last 24 hr 07/17/23 07/17/23 07/18/23 18:54 19:02 04:26 WBC RBC Hgb Hct MCV MCH MCHC RDW Plt Count MPV Immature Gran % (Auto) Neut % (Auto) Lymph % (Auto) [place] % (Auto) Eos % (Auto) Baso % (Auto) Lymph # (Auto) [place] # (Auto) Eos # (Auto) Baso # (Auto) Abs Immat Gran (auto) Absolute Neuts (auto) Absolute Nucleated RBC Nucleated RBC % (auto) VBG pH 7.41 7.46 H VBG pCO2 47 32 VBG pO2 33 77 VBG HCO3 30 H 23 VBG O2 Saturation 46.0 96.0 VBG Base Excess 5.1 0.5 Sodium Potassium Chloride Carbon Dioxide Anion Gap BUN Creatinine Estim Creat Clear Calc Estimated GFR Random Glucose Calcium Phosphorus Magnesium Total Bilirubin AST ALT Alkaline Phosphatase Total Protein Albumin TSH Urine Color Yellow Urine Appearance Clear Urine pH 6.0 Ur Specific [place] 1.025 Urine Protein Negative Urine Glucose (UA) Negative Urine Ketones Negative Urine Blood Negative Urine Nitrite Negative Ur Leukocyte Esterase Negative 07/18/23 04:27 WBC 7.6 RBC 4.91 Hgb 14.2 Hct 42.9 MCV 87.4 MCH 28.9 MCHC 33.1 RDW 14.9 Plt Count 224 MPV 11.1 Immature Gran % (Auto) 0.3 Neut % (Auto) 89.9 H Lymph % (Auto) 7.7 L [place] % (Auto) 1.7 L Eos % (Auto) 0.1 Baso % (Auto) 0.3 Lymph # (Auto) 0.6 L [place] # (Auto) 0.1 Eos # (Auto) 0.0 Baso # (Auto) 0.0 Abs Immat Gran (auto) 0.02 Absolute Neuts (auto) 6.9 Absolute Nucleated RBC 0.000 Nucleated RBC % (auto) 0.0 VBG pH VBG pCO2 VBG pO2 VBG HCO3 VBG O2 Saturation VBG Base Excess Sodium 136 Potassium 4.5 Chloride 106 Carbon Dioxide 24 Anion Gap 11 L BUN 21 H Creatinine 0.73 Estim Creat Clear Calc 100.3 Estimated GFR > 60 Random Glucose 124 H Calcium 8.8 D Phosphorus 4.7 H Magnesium 2.2 Total Bilirubin 0.6 AST 21 ALT 26 Alkaline Phosphatase 83 Total Protein 7.1 Albumin 3.7 TSH 1.09 Urine Color Urine Appearance Urine pH Ur Specific [place] Urine Protein Urine Glucose (UA) Urine Ketones Urine Blood Urine Nitrite Ur Leukocyte Esterase Progress Note: A&P Assessment and plan (1) Myasthenia gravis with exacerbation: Status: Acute (2) Allergic rhinitis: Status: Acute (3) Shoulder pain, right: Status: Acute (4) Bladder instability: Status: Acute (5) History of carpal tunnel surgery of left wrist: Status: Acute (6) Syncope: Status: Acute (7) Chronic dyspnea: Status: Acute (8) Bifascicular block: Status: Acute (9) BPH loc w urin obs/LUTS: Status: Acute (10) Nocturia associated with benign prostatic hyperplasia: Status: Acute (11) Incomplete emptying of bladder due to benign prostatic hyperplasia: Status: Acute (12) JULIEN (dyspnea on exertion): Status: Acute (13) Pulmonary nodule: Status: Acute (14) GERD (gastroesophageal reflux disease): Status: Acute (15) Hyperlipidemia: Status: Acute (16) Hypertension: Status: Acute (17) Hypothyroid: Status: Acute (18) Multinodular thyroid: Status: Acute (19) COPD (chronic obstructive pulmonary disease): Status: Acute Plan so we have evidence of worsening myasthenia gravis symptoms known acetylcholine receptor antibody positivity and thus far he is not demonstrating any in insufficiency of his Sylvie strength and no sense of premature fatigue there but he does have some cranial nerve involvement because of the diplopia and ptosis and for that it was recommended that we give him a 5 day course of IV immunoglobulin and just increases steroid at least temporarily but pyridostigmine is to remain as is Quality Stroke Does the patient have a stroke diagnosis?: No VTE Prior VTE?: No VTE Risk Level:: Medical - moderate - high VTE Device Contraindication: N/A - Device Ordered VTE Drug Contraindication: N/A - Med Ordered
[2023-07-18] MEDS: diphenhydrAMINE HCL 50 MG/ML VIAL 25 MG IVPUSH (20:38)
[2023-07-18] MEDS: methylPREDNISolone Sod Succ 40 MG/ML VIAL IVPUSH (20:38)
[2023-07-18] MEDS: Acetaminophen 325 MG TABLET 650 MG PO (20:39)
[2023-07-18] MEDS: Immun Glob G(IgG)/Gly/IGA Ov50 100 ML IV (22:05)
[2023-07-19] VITALS (13 sets, daily range): BP systolic 102–137; BP diastolic 57–83; PULSE 53–70; RESP 12–18; TEMP 36–36.9; O2SAT 95–98; BMI 26.0
[2023-07-19] MEDS: Levothyroxine Sodium 50 MCG TABLET PO (05:02)
[2023-07-19 05:12] LABS: VBG Base Excess 0.5 mmol/L; VBG HCO3 23 mmol/L (22-26); VBG pCO2 31 mmHg; VBG pH 7.47 (7.32-7.43); VBG pO2 204 mmHg
[2023-07-19 05:13] LABS: Venous Blood Gas Refer to POC result
[2023-07-19 05:31] LABS: Basophils Percent Auto 0.1 % (0-2); Hematocrit 42.5 % (42.0-52.0); Hemoglobin 14.1 g/dl (14.0-18.0); Imm Gran Abs Auto 0.06 X10*3/uL (0.00-0.03); Imm Gran Pct Auto 0.6 % (0.0-0.4); Lymphocytes Absolute Auto 0.5 X10*3/uL (1.2-4.9); Lymphocytes Percent Auto 5.3 % (20-40); MANUAL DIFF FLAG SCAN; Mean Corpuscular HGB Conc 33.2 g/dl (31.0-36.0); Mean Corpuscular Hemoglobin 28.8 pg (27.0-33.0); Mean Corpuscular Volume 86.7 fL (80.0-98.0); Mean Platelet Volume 10.8 fL (9.4-12.4); Monocytes Absolute Auto 0.2 X10*3/uL (0.1-1.2); Monocytes Percent Auto 2.1 % (2-11); Neutrophils Absolute Auto 9.2 x10*3/uL (2.0-8.3); Neutrophils Percent Auto 91.9 % (45-73); Platelet Count 219 X10*3/uL (160-400); SCAN SMEAR FLAG 1
[2023-07-19 05:45] LABS: Alanine Aminotransferase 29 U/L (0-40); Albumin Level 3.5 g/dL (3.5-5.0); Alkaline Phosphatase 75 U/L (39-117); Anion Gap 10 (12-20); Aspartate Amino Transferase 22 U/L (5-37); Bilirubin Total 0.4 mg/dL (0.0-1.0); Blood Urea Nitrogen 20 mg/dL (9-16); Carbon Dioxide 23 mmol/L (22-29); Chloride 108 mmol/L (96-108); Creatinine Clr Calc Pharmacy 90.4; Estimated Glomerular Filt Rate > 60; Glucose Random 150 mg/dL (60-115); Magnesium 2.1 mg/dL (1.6-2.6); Phosphorus 3.5 mg/dL (2.7-4.5); Potassium 4.4 mmol/L (3.3-5.1); Sodium 137 mmol/L (135-145); Total Protein 7.6 g/dL (6.5-8.0)
[2023-07-19 05:48] LABS: SLIDE REVIEW VERIFIED
--- NOTE | 2023-07-19 06:35 | PM.CCPN ---
Subjective Subjective Date of Service: 07/19/23 Interval History: 73-year-old male presents with increasing dyspnea and a degree of of like subacute increase in weakness most particularly the left-sided lid droop and the diplopia and has a known diagnosis of receptor antibody positive myasthenia gravis made 3 years ago and has been on low-dose maintenance prednisone as well as pyridostigmine we checked blood gas and there was no evidence of respiratory acidosis and we did multiple vital capacity and negative inspiratory force maneuvers number in a row and there was noted demonstration of fatigue and all numbers represented adequate strength in reserve and he has done very well and has now received 2 out of the 5 doses of IV immunoglobulin which was the recommendation by Neurology along with an increase from 10 mg of prednisone as a maintenance to 40 mg of Solu-Medrol daily probably also for the 4 days and then maybe weaning from a 40 mg prednisone dose gradually no precipitating issue and bedside echo demonstrated normal LV and RV function with no evidence of valve or pericardial disease he has a sinus bradycardia which is been hit chronically consistent and on his EKG he has got a right bundle branch block and right axis implying a right posterior hemiblock but we see no evidence on 2 days of monitoring for second-degree block Critical Care Time (minutes): 30 Physical Exam Vital Signs: Vital Signs: Last Vital Signs Temp 98.1 F 07/19/23 05:01 Pulse 54 07/19/23 06:00 Resp 14 07/19/23 06:00 BP 126/65 07/19/23 06:00 Pulse Ox 95 07/19/23 06:00 O2 Del Method Room Air 07/19/23 06:00 BMI result Body Mass Index 26.0 normal cognitive function and no particular focality on neurologic but he does have with certain areas of gaze inducible diplopia as well as left-sided ptosis abdomen benign no organomegaly chest no adventitious sounds no respiratory effort no adventitious sounds bedside echo showing normal cardiac function skin is intact Objective Data Labs 07/19/23 04:59 07/19/23 04:59 Labs: Laboratory Results - last 24 hr 07/19/23 07/19/23 04:59 05:07 WBC 10.0 RBC 4.90 Hgb 14.1 Hct 42.5 MCV 86.7 MCH 28.8 MCHC 33.2 RDW 15.0 Plt Count 219 MPV 10.8 Immature Gran % (Auto) 0.6 H Neut % (Auto) 91.9 H Lymph % (Auto) 5.3 L [place] % (Auto) 2.1 Eos % (Auto) 0.0 Baso % (Auto) 0.1 Lymph # (Auto) 0.5 L [place] # (Auto) 0.2 Eos # (Auto) 0.0 Baso # (Auto) 0.0 Abs Immat Gran (auto) 0.06 H Absolute Neuts (auto) 9.2 H Absolute Nucleated RBC 0.000 Nucleated RBC % (auto) 0.0 Smear Tech's Comments VERIFIED VBG pH 7.47 H VBG pCO2 31 VBG pO2 204 VBG HCO3 23 VBG O2 Saturation 100.0 VBG Base Excess 0.5 Sodium 137 Potassium 4.4 Chloride 108 Carbon Dioxide 23 Anion Gap 10 L BUN 20 H Creatinine 0.81 Estim Creat Clear Calc 90.4 Estimated GFR > 60 Random Glucose 150 H Calcium 9.0 Phosphorus 3.5 Magnesium 2.1 Total Bilirubin 0.4 AST 22 ALT 29 Alkaline Phosphatase 75 Total Protein 7.6 Albumin 3.5 Progress Note: A&P Assessment and plan (1) Myasthenia gravis with exacerbation: Status: Acute (2) Allergic rhinitis: Status: Acute (3) Shoulder pain, right: Status: Acute (4) Bladder instability: Status: Acute (5) Syncope: Status: Acute (6) Left inguinal pain: Status: Acute (7) Chronic dyspnea: Status: Acute (8) Bifascicular block: Status: Acute (9) Nocturia more than twice per night: Status: Acute (10) BPH loc w urin obs/LUTS: Status: Acute (11) Nocturia associated with benign prostatic hyperplasia: Status: Acute (12) JULIEN (dyspnea on exertion): Status: Acute (13) Pulmonary nodule: Status: Acute (14) GERD (gastroesophageal reflux disease): Status: Acute (15) Spondylosis of lumbosacral region: Status: Acute (16) Disc degeneration, lumbar: Status: Acute (17) Chronic pain syndrome: Status: Acute (18) Hyperlipidemia: Status: Acute (19) Hypertension: Status: Acute (20) COPD (chronic obstructive pulmonary disease): Status: Acute (21) Hypothyroid: Status: Acute (22) Multinodular thyroid: Status: Acute Plan so the plan is to continue the IV IG in the high-dose Solu-Medrol and after the last 3 treatments of IVIG possibly start the weaning process on the Solu-Medrol by switching to prednisone potentially at 40 mg and slowly taper Quality Stroke Does the patient have a stroke diagnosis?: No VTE Prior VTE?: No VTE Risk Level:: Medical - moderate - high VTE Device Contraindication: N/A - Device Ordered VTE Drug Contraindication: N/A - Med Ordered
[2023-07-19] MEDS: lisinopriL 20 MG TABLET PO (09:18)
[2023-07-19] MEDS: pyRIDostigmine bromide 60 MG TABLET PO ×3 (09:18→21:41)
[2023-07-19] MEDS: Oxymetazoline HCl 0.05 % Nasal 15 ML SPRAY 2 SPRAY NOSTRIL-B (14:22)
--- NOTE | 2023-07-19 15:40 | MHC.CM.PN ---
CM met with Patient at bedside to discuss Patient's questions regarding IVIG and the possibility of receiving that care at home.CM will follow.
--- NOTE | 2023-07-19 18:41 | PC.NURSE ---
Pt transferred from ICU this am. A&OX4 speech clear. Denies headache, dizziness or vision changes pupils PERRL 2B. RODRIGUEZ to command 5/5 pt reports decreased ROM to right shoulder. Sensation intact, +pp bilat no edema noted. LSCTA denies SOB or CP, NS 1st HB on tele. BS+X4 abdomen soft non-tender denies nausea/vomiting. OOB to chair up to bathroom with stand by assist. Will continue to monitor and report changes
[2023-07-19] MEDS: diphenhydrAMINE HCL 50 MG/ML VIAL 25 MG IVPUSH (21:33)
[2023-07-19] MEDS: methylPREDNISolone Sod Succ 40 MG/ML VIAL IVPUSH (21:39)
[2023-07-19] MEDS: Acetaminophen 325 MG TABLET 650 MG PO (21:41)
[2023-07-19] MEDS: Immun Glob G(IgG)/Gly/IGA Ov50 100 ML IV (23:36)
[2023-07-20] VITALS (7 sets, daily range): BP systolic 107–147; BP diastolic 57–81; PULSE 54–81; RESP 14–18; TEMP 36.4–37.1; O2SAT 98–99; BMI 26.5
[2023-07-20] MEDS: Immun Glob G(IgG)/Gly/IGA Ov50 200 ML IV (02:10)
[2023-07-20] MEDS: Levothyroxine Sodium 50 MCG TABLET PO (06:28)
[2023-07-20] MEDS: Omeprazole 20 MG CAPSULE.DR PO (06:28)
[2023-07-20] MEDS: pyRIDostigmine bromide 60 MG TABLET PO ×3 (09:35→19:55)
[2023-07-20] MEDS: lisinopriL 20 MG TABLET PO (09:35)
[2023-07-20] MEDS: Atorvastatin Calcium 20 MG TABLET PO (09:35)
[2023-07-20] MEDS: Mirabegron 25 MG TAB.ER.24H PO (09:35)
[2023-07-20] MEDS: Aspirin Enteric Coated 81 MG TABLET.DR PO (09:35)
[2023-07-20] MEDS: polyethylene glycoL 3350 17 GM POWD.PACK PO (09:52)
--- NOTE | 2023-07-20 11:44 | HO.PM.IMPN ---
Subjective Subjective Date of Service: 07/20/23 [facility]val [facility] Physical Exam Vital Signs: Vital Signs: Last Vital Signs Temp 98.2 F 07/20/23 11:40 Pulse 54 07/20/23 11:40 Resp 18 07/20/23 11:40 BP 118/66 07/20/23 11:40 Pulse Ox 98 07/20/23 11:40 O2 Del Method Room Air 07/20/23 11:40 BMI result Body Mass Index 26.5 General: AO X 3, no acute distress Resp: CTA bilateral, no accessory muscles used CVS: S1,S2,RRR GI: soft, non tender, non distended Neuro: motor grossly intact, alert Psych: appropriate affect, appropriate insight Objective Data Active Medications Acetaminophen (Acetaminophen 325 Mg Tablet) 650 mg PO DAILY@2029 [facility] Stop: 07/21/23 20:31 Last Admin: 07/19/23 21:41 Dose: 650 mg Documented By: ELVIA Aspirin (Aspirin Enteric Coated 81 Mg Tablet.Dr) 81 mg PO DAILY [facility] Last Admin: 07/20/23 09:35 Dose: 81 mg Documented By: PETE Atorvastatin Calcium (Atorvastatin Calcium 20 Mg Tablet) 20 mg PO DAILY [facility] Last Admin: 07/20/23 09:35 Dose: 20 mg Documented By: PETE Diphenhydramine HCl (Diphenhydramine Hcl 50 Mg/Ml Vial) 25 mg IVPUSH DAILY@2029 [facility] Stop: 07/21/23 20:31 Last Admin: 07/19/23 21:33 Dose: 25 mg Documented By: ELVIA Enoxaparin Sodium (Enoxaparin Sodium 40 Mg/0.4 Ml Syringe) 40 mg SUBCUT Q24H [facility] Last Admin: 07/19/23 21:44 Dose: Not Given Documented By: ELVIA Non-Admin Reason: Patient Refused Immune Globulin (Gammagard 10%) 50 mls @ 45 mls/hr IV DAILY@2100 [facility] Stop: 07/21/23 22:07 Last Infusion: 07/19/23 23:10 Dose: 0 mls/hr Documented By: ELVIA Immune Globulin (Gammagard 10%) 200 mls @ 45 mls/hr IV DAILY@0030 [facility] Stop: 07/22/23 04:57 Last Infusion: 07/20/23 06:30 Dose: 0 mls/hr Documented By: ELVIA Immune Globulin (Gammagard 10%) 100 mls @ 45 mls/hr IV DAILY@2210 [facility] Stop: 07/22/23 00:24 Last Infusion: 07/20/23 01:50 Dose: Infused Documented By: ELVIA Levothyroxine Sodium (Levothyroxine Sodium 50 Mcg Tablet) 50 mcg PO DAILY@0600 [facility] Last Admin: 07/20/23 06:28 Dose: 50 mcg Documented By: ELVIA Lisinopril (Lisinopril 20 Mg Tablet) 20 mg PO DAILY [facility]; Protocol Last Admin: 07/20/23 09:35 Dose: 20 mg Documented By: PETE Mirabegron (Mirabegron 25 Mg Tab.Er.24h) 25 mg PO DAILY [facility] Last Admin: 07/20/23 09:35 Dose: 25 mg Documented By: PETE Omeprazole (Omeprazole 20 Mg Capsule.Dr) 20 mg PO DAILY@0630 [facility] Last Admin: 07/20/23 06:28 Dose: 20 mg Documented By: ELVIA Oxycodone HCl (Oxycodone Hcl Immed Release 5 Mg Tablet) 5 mg PO Q6H PRN PRN Reason: pain Prednisone (Prednisone 20 Mg Tablet) 20 mg PO DAILY [facility] Pyridostigmine [place] (Pyridostigmine [place] 60 Mg Tablet) 60 mg PO TID [facility] Last Admin: 07/20/23 09:35 Dose: 60 mg Documented By: PETE Labs 07/19/23 04:59 07/19/23 04:59 Assessment and Plan (1) Myasthenia gravis with exacerbation: Status: Acute Plan 73-year-old male with a past medical history of myasthenia gravis, hypertension, diastolic dysfunction, COPD, Spondylosis of lumbosacral spine with radiculopathy, hypothyroidism, hyperlipidemia, and adrenal insufficiency peresented with sob, was admitted to icu for close monitoring in MG exacerbation, received ivig, steroids, pryidostigmine, symptoms improved and downgraded acute decompensation of myasthenia gravis Continue IVIG until 07/22/2023 Prednisone 20 mg daily pryidostigmine COPD Stable Hypertension Lisinopril Hypothyroid Synthroid Adrenal insufficiency Prednisone DVT prophylaxis with Lovenox Full code Reason for continued hospitalization: Completing course of IVIG Time Spent With Patient Time: Total time managing care of this patient today ____ minutes. Quality Stroke Does the patient have a stroke diagnosis?: No VTE Prior VTE?: No VTE Risk Level:: Medical - moderate - high VTE Device Contraindication: N/A - Device Ordered VTE Drug Contraindication: N/A - Med Ordered
--- NOTE | 2023-07-20 14:33 | MHC.CM.PN ---
Per pt request (wanting to go home), CM attempted to set pt up with short stay outpatient IV IG for Monday and Monday. Short stay unable to accommodate pt due to no coverage on Monday. CM also pursued [facility] and they are also unable to accommodate pt with short notice, they state they could see pt in 48 hours at home. MD aware, and pt aware that he will remain here to finish IV IG.
[2023-07-20] MEDS: Acetaminophen 325 MG TABLET 650 MG PO (19:55)
[2023-07-20] MEDS: diphenhydrAMINE HCL 50 MG/ML VIAL 25 MG IVPUSH (19:56)
[2023-07-20] MEDS: Immun Glob G(IgG)/Gly/IGA Ov50 100 ML IV (22:35)
[2023-07-21] MEDS: Enoxaparin Sodium 40 MG/0.4 ML SYRINGE SUBCUT ×2 (01:12→23:49)
[2023-07-21] MEDS: Immun Glob G(IgG)/Gly/IGA Ov50 200 ML IV ×2 (01:12→23:49)
[2023-07-21 03:54] VITALS: BP 142/81; PULSE 52; RESP 18; TEMP 36.6; O2SAT 98
[2023-07-21] MEDS: Levothyroxine Sodium 50 MCG TABLET PO (05:17)
[2023-07-21] MEDS: Omeprazole 20 MG CAPSULE.DR PO (05:17)
[2023-07-21 05:57] LABS: Hematocrit 42.9 % (42.0-52.0); Hemoglobin 13.7 g/dl (14.0-18.0); Mean Corpuscular HGB Conc 31.9 g/dl (31.0-36.0); Mean Corpuscular Hemoglobin 28.2 pg (27.0-33.0); Mean Corpuscular Volume 88.3 fL (80.0-98.0); Platelet Count 196 X10*3/uL (160-400); Red Blood Count 4.86 X10*6/uL (4.60-5.80); Red Cell Distribution Width 15.2 % (11.0-16.0); White Blood Count 9.8 X10*3/uL (4.8-10.8)
[2023-07-21 06:00] VITALS: BMI 26.6
[2023-07-21 06:11] LABS: Anion Gap 9 (12-20); Blood Urea Nitrogen 18 mg/dL (9-16); Calcium 8.6 mg/dL (8.4-10.2); Carbon Dioxide 27 mmol/L (22-29); Chloride 105 mmol/L (96-108); Creatinine Clr Calc Pharmacy 85.2; Estimated Glomerular Filt Rate > 60; Glucose Fasting 86 mg/dL (60-99); Potassium 3.8 mmol/L (3.3-5.1); Sodium 137 mmol/L (135-145)
--- NOTE | 2023-07-21 07:00 | CA_ITS ---
Transthoracic Echocardiogram Patient (Last, First, Middle): Olegario Leonard C Gender: Male Date of : 1950 Age: 73 Procedure Date: 07/21/2023 Procedure Type: Transthoracic Echocardiogram Location: [facility] Height: 182.88 cm Weight: 88.45 kg BSA: 2.11 m2 Heart Rate: 54 bpm BP: 138 / 68 mmHg Director Card: SB Referring MD: Reza Benedict MD Symptoms: nsvt Study Quality: Adequate ECG Rhythm: Bradycardia Conclusions: - The left ventricular systolic function is normal. The calculated ejection fraction is 57% by biplane method. - There is moderately increased left ventricular wall thickness. - There is severe septal asymmetric hypertrophy. - Evidence suggests grade II (moderate) diastolic dysfunction. - There is mild calcification of the aortic valve. - There is mild mitral annular calcification. Findings Left Ventricle Normal left ventricular cavity size. There is moderately increased left ventricular wall thickness. The left ventricular systolic function is normal. The calculated ejection fraction is 57% by biplane method. There is no evidence of regional wall motion abnormalities. E/E prime ratio is >15, consistent with elevated filling pressures. Evidence suggests grade II (moderate) diastolic dysfunction. There is severe septal asymmetric hypertrophy. Right Ventricle Normal right ventricular cavity size and systolic function. Atria The left atrium is moderately dilated. The right atrium is normal in size. Aortic Valve There is a normal trileaflet aortic valve. There is mild calcification of the aortic valve. There is no aortic valve stenosis. There is no aortic valve regurgitation. Mitral Valve There is mild mitral annular calcification. There is no mitral valve regurgitation. There is no mitral valve stenosis. Pulmonic Valve The pulmonic valve is likely normal. Tricuspid Valve Normal tricuspid valve structure. There is no tricuspid valve regurgitation. Tricuspid regurgitation envelope is inadequate for calculation of right ventricular systolic pressure. Great Vessels The asc aorta is normal in size. Venous The inferior vena cava is normal in size and collapses greater than 50% with inspiration. Pericardium/Pleural There is no evidence of pericardial effusion. Prior Study Comparison Changes noted compared to prior study dated: 03/23/2021. progression of diastolic dysfunction. Measurements 2D Linear Measurements IVSd: 1.63 0.6-0.9/0.6-1.0 cm LVIDd: 4.23 3.9-5.3/4.2-5.9 cm LVIDd Index: 2.00 2.4-3.2/2.2-3.1 cm/m2 LVIDs: 2.52 2.0-3.6 cm LVPWd: 1.31 0.7-1.1 cm LA Diam: 5.40 2.7-3.8/3.0-4.0 cm LAIDs Index: 2.56 1.5-2.3 cm/m2 LV Mass: 304.63 67-162/88-224 g LV Mass Index: 144.38 43-95/49-115 g/m2 LVOT Diam: 2.10 3.0+(-)1.3 cm 2D Systolic Function EF 4C: 68.80 >55% EF 2C: 35.60 >55% EF BiP: 56.60 >55% Mitral Valve MV Pk E: 0.78 MV PK A: 0.45 MV Decel Time: 214.00 E/A: 1.70 E'Lateral: 2.93 E'Medial: 3.21 E/E' Med: 24.40 E/E' Lat: 26.80 PHT: 63.00 MVA PHT: 3.49 Decel [place]: 3.66 Aortic Valve AoV Pk Van: 1.42 AoV Pk Grad: 8.00 KATHIA: 3.34 LVOT LVOT Pk Van: 1.37 LVOT Mn Van: 0.93 LVOT VTI: 0.26 LVOT Pk Grad: 8.00 LVOT Mn Grad: 4.00 LVOT Diam: 2.10 LVOT Area: 3.46 Diastolic Function MV Pk E: 0.78 MV Pk A: 0.45 E/A: 1.70 E'Medial: 3.21 E/E' Med: 24.40 E' Laterial: 2.93 E/E' Lat: 26.80 Right Ventricle TAPSE (mm): 19.30 TVS' Van: 14.50 Tricuspid Valve RA Press: 3.00 Great Vessels Aorta Sinus of Valsalva: 3.00 2.0-3.5 cm Ao Asc: 3.30 2.1-3.4 cm Pulmonary Valve PV Pk Van: 1.16 Peak PV Grad: 5.00 Updated in Other Vendor System with Status of Final Colt Beltre MD electronically signed on 07/21/2023 11:59:23 AM with status of Final
[2023-07-21 08:00] VITALS: BP 138/69; PULSE 53; RESP 18; TEMP 36.7; O2SAT 98
[2023-07-21] MEDS: pyRIDostigmine bromide 60 MG TABLET PO ×3 (08:36→20:44)
[2023-07-21] MEDS: Aspirin Enteric Coated 81 MG TABLET.DR PO (08:36)
[2023-07-21] MEDS: Mirabegron 25 MG TAB.ER.24H PO (08:36)
[2023-07-21] MEDS: Atorvastatin Calcium 20 MG TABLET PO (08:37)
[2023-07-21] MEDS: predniSONE 20 MG TABLET PO (08:37)
[2023-07-21] MEDS: lisinopriL 20 MG TABLET PO (08:37)
[2023-07-21] MEDS: polyethylene glycoL 3350 17 GM POWD.PACK PO (09:07)
--- NOTE | 2023-07-21 10:25 | P.PNIM_ITS ---
Subjective Subjective Date of Service: 07/21/23 Interval History: stable, had 10 beat nsvt asymptomatic Physical Exam 2 Vital Signs: Vital Signs: Last Vital Signs Temp 98.0 F 07/21/23 08:00 Pulse 53 07/21/23 08:00 Resp 18 07/21/23 08:00 BP 138/69 07/21/23 08:00 Pulse Ox 98 07/21/23 08:00 O2 Del Method Room Air 07/21/23 08:00 BMI result Body Mass Index 26.6 General: AO X 3, no acute distress Resp: CTA bilateral, no accessory muscles used CVS: S1,S2,RRR GI: soft, non tender, non distended Neuro: motor grossly intact, alert Psych: appropriate affect, appropriate insight Objective Data Active Medications Acetaminophen (Acetaminophen 325 Mg Tablet) 650 mg PO DAILY@2029 [facility] Stop: 07/21/23 20:31 Last Admin: 07/20/23 19:55 Dose: 650 mg Documented By: LINSEY Aspirin (Aspirin Enteric Coated 81 Mg Tablet.) 81 mg PO DAILY [facility] Last Admin: 07/21/23 08:36 Dose: 81 mg Documented By: DORA Atorvastatin Calcium (Atorvastatin Calcium 20 Mg Tablet) 20 mg PO DAILY [facility] Last Admin: 07/21/23 08:37 Dose: 20 mg Documented By: DORA Diphenhydramine HCl (Diphenhydramine Hcl 50 Mg/Ml Vial) 25 mg IVPUSH DAILY@2029 [facility] Stop: 07/21/23 20:31 Last Admin: 07/20/23 19:56 Dose: 25 mg Documented By: LINSEY Enoxaparin Sodium (Enoxaparin Sodium 40 Mg/0.4 Ml Syringe) 40 mg SUBCUT Q24H [facility] Last Admin: 07/21/23 01:12 Dose: 40 mg Documented By: LINSEY Immune Globulin (Gammagard 10%) 50 mls @ 45 mls/hr IV DAILY@2100 [facility] Stop: 07/21/23 22:07 Last Infusion: 07/20/23 22:22 Dose: Infused Documented By: LINSEY Immune Globulin (Gammagard 10%) 200 mls @ 45 mls/hr IV DAILY@0030 [facility] Stop: 07/22/23 04:57 Last Infusion: 07/21/23 05:17 Dose: Infused Documented By: LINSEY Immune Globulin (Gammagard 10%) 100 mls @ 45 mls/hr IV DAILY@2210 [facility] Stop: 07/22/23 00:24 Last Infusion: 07/21/23 00:58 Dose: Infused Documented By: LINSEY Levothyroxine Sodium (Levothyroxine Sodium 50 Mcg Tablet) 50 mcg PO DAILY@0600 [facility] Last Admin: 07/21/23 05:17 Dose: 50 mcg Documented By: LINSEY Lisinopril (Lisinopril 20 Mg Tablet) 20 mg PO DAILY [facility]; Protocol Last Admin: 07/21/23 08:37 Dose: 20 mg Documented By: DORA Mirabegron (Mirabegron 25 Mg Tab.Er.24h) 25 mg PO DAILY [facility] Last Admin: 07/21/23 08:36 Dose: 25 mg Documented By: DORA Omeprazole (Omeprazole 20 Mg Capsule.Dr) 20 mg PO DAILY@0630 [facility] Last Admin: 07/21/23 05:17 Dose: 20 mg Documented By: LINSEY Oxycodone HCl (Oxycodone Hcl Immed Release 5 Mg Tablet) 5 mg PO Q6H PRN PRN Reason: pain Prednisone (Prednisone 20 Mg Tablet) 20 mg PO DAILY [facility] Last Admin: 07/21/23 08:37 Dose: 20 mg Documented By: DORA Pyridostigmine [place] (Pyridostigmine [place] 60 Mg Tablet) 60 mg PO TID [facility] Last Admin: 07/21/23 08:36 Dose: 60 mg Documented By: DORA Labs 07/21/23 05:33 07/21/23 05:33 Labs: Laboratory Results - last 24 hr 07/21/23 05:33 MCV 88.3 MCH 28.2 MCHC 31.9 RDW 15.2 Plt Count 196 MPV 11.0 Absolute Nucleated RBC 0.000 Nucleated RBC % (auto) 0.0 Anion Gap 9 L Estim Creat Clear Calc 85.2 Estimated GFR > 60 Fasting Glucose 86 Calcium 8.6 Assessment and Plan (1) Myasthenia gravis with exacerbation: Status: Acute Plan 73-year-old male with a past medical history of myasthenia gravis, hypertension, diastolic dysfunction, COPD, Spondylosis of lumbosacral spine with radiculopathy, hypothyroidism, hyperlipidemia, and adrenal insufficiency peresented with sob, was admitted to icu for close monitoring in [place] exacerbation, received ivig, steroids, pryidostigmine, symptoms improved and downgraded acute decompensation of myasthenia gravis Continue IVIG until 07/22/2023 Prednisone 20 mg daily pryidostigmine NSVT check mag echo COPD Stable Hypertension Lisinopril Hypothyroid Synthroid Adrenal insufficiency Prednisone DVT prophylaxis with Lovenox Full code Reason for continued hospitalization: Completing course of IVIG Time Spent With Patient Time: Total time managing care of this patient today ____ minutes. Quality Stroke Does the patient have a stroke diagnosis?: No VTE Prior VTE?: No VTE Risk Level:: Medical - moderate - high VTE Device Contraindication: N/A - Device Ordered VTE Drug Contraindication: N/A - Med Ordered
--- NOTE | 2023-07-21 10:31 | MHC.CM.PN ---
Per ROUNDS discussion, Patient requires another day r/t IVIG; home is the goal and CM will continue to follow.
[2023-07-21 12:00] VITALS: BP 116/70; PULSE 56; RESP 20; TEMP 36.6; O2SAT 97
[2023-07-21 16:00] VITALS: BP 111/55; PULSE 62; RESP 18; TEMP 37.1; O2SAT 96
[2023-07-21 19:50] VITALS: BP 114/62; PULSE 55; RESP 17; TEMP 37; O2SAT 98
[2023-07-21] MEDS: diphenhydrAMINE HCL 50 MG/ML VIAL 25 MG IVPUSH (20:09)
[2023-07-21] MEDS: Acetaminophen 325 MG TABLET 650 MG PO (20:09)
[2023-07-21] MEDS: Immun Glob G(IgG)/Gly/IGA Ov50 100 ML IV (21:44)
[2023-07-22] VITALS: BP 155/81; PULSE 54; RESP 18; TEMP 37; O2SAT 98
[2023-07-22 04:00] VITALS: BP 136/76; PULSE 52; RESP 18; TEMP 36.5; O2SAT 99
[2023-07-22] MEDS: Levothyroxine Sodium 50 MCG TABLET PO (05:59)
[2023-07-22] MEDS: Omeprazole 20 MG CAPSULE.DR PO (05:59)
[2023-07-22 06:00] VITALS: BMI 26.6
[2023-07-22 07:27] VITALS: BP 138/78; PULSE 54; RESP 18; TEMP 36.8; O2SAT 96
[2023-07-22] MEDS: Aspirin Enteric Coated 81 MG TABLET.DR PO (08:58)
[2023-07-22] MEDS: Atorvastatin Calcium 20 MG TABLET PO (08:58)
[2023-07-22] MEDS: lisinopriL 20 MG TABLET PO (08:59)
[2023-07-22] MEDS: Mirabegron 25 MG TAB.ER.24H PO (08:59)
[2023-07-22] MEDS: pyRIDostigmine bromide 60 MG TABLET PO (08:59)
[2023-07-22] MEDS: predniSONE 20 MG TABLET PO (08:59)
--- NOTE | 2023-07-22 11:01 | PM.DS ---
DS: Providers Provider Date of Service: 07/22/23 Date of admission: 07/17/23 19:33 Primary care physician: Gifty Frankel MD DS: Diagnosis Discharge Diagnosis (1) Myasthenia gravis with exacerbation: Status: Acute DS: Summary Hospital Course Hospital Course: Admission note HPI The patient is a 73-year-old male with a past medical history of myasthenia gravis,? hypertension, diastolic dysfunction, COPD, Spondylosis of lumbosacral spine with radiculopathy,? hypothyroidism, hyperlipidemia, and adrenal insufficiency who presented to the emergency room with difficulty breathing. Patient reports worsening myasthenia gravis symptoms for about a month, he has gradually been becoming more weak. However, 2 weeks ago patient started noticing worsening weakness in his arms and legs. One week ago he went to see his neurologist, Dr. Saez, and prednisone dose from 10mg to 20mg was increased. Today, the patient states that he can barely lift his arms up, has drooping on the left eyelid and for the last 2 days, and worsening dyspnea.? ?In the emergency room vital signs stable,? laboratory data? unremarkable.? Chest x-ray with no acute findings.? On exam reports not able to lift his arms above his head, and some dyspnea.? Neurology was consulted by ED? physician, Dr Saez, patient to be started on IVIG, which will be the 1st infusion for the patient. Patient will be premedicated. Patient jm admitted to ICU for hemodynamic the monitoring? Hospital course The patient was admitted to icu for close monitoring in MG exacerbation, received IVIG, steroids, pryidostigmine, symptoms improved and he was downgraded to Telemetry unit were he finished total of 5 days of IVIG with resolution of his symptoms. was able to ambulate and watch TV with no reported weakness or double vision. Seen by neurologist who recommended to continue with Prednisone 20 mg daily at discharge until he sees him back in the office in 2-3 weeks. Continue pryidostigmine. Noted to have a run of NSVT on Tele. Asymptomatic. Echo showed EF 57% with LVH and diastolic dysfuction grade II. Magnesium and Potassium within normal. no recurrence of NSVT for the rest of the stay. Continue home medications as prescribed Prednisone 20 mg daily until you see dr Saez in 2-3 weeks To follow with Neurology as outpatient Time Spent with Patient Time attestation: Total time managing care of this patient today ____ minutes. Discharge coordination time: Greater than 30 minutes Quality: Safe Use of Opioids Does Pt have an Active Cancer Diagnosis on the Problem List?: No Quality: Stroke Does the patient have a stroke diagnosis?: No Physical Exam Vital Signs: Vital Signs: Last Vital Signs Temp 98.3 F 07/22/23 07:27 Pulse 54 07/22/23 07:27 Resp 18 07/22/23 07:27 BP 138/78 07/22/23 07:27 Pulse Ox 96 07/22/23 07:27 O2 Del Method Room Air 07/22/23 07:27 BMI result Body Mass Index 26.6 Const: Other: Constitutional : Awake, interactive, not in distress Neck : Normal inspection, Supple Cardiovascular : RRR, no JVP, no lower extremity edema Respiratory : good bilateral air entry, no crackles, wheezes or rhonchi Gastrointestinal: soft, lax, Normal bowel sounds, Non tender Skin : Warm, Dry Neurological : Alert & oriented x3, No focal deficit DS: Data Data Completed and Pending Labs on day of discharge: Laboratory Results - last 24 hr 07/21/23 05:33 Magnesium 2.0 Imaging Chest x-ray: Radiologist's impression: ITS Impressions Chest X-Ray 07/17/23 14:49 IMPRESSION: No evidence for acute disease in the chest. Chest CT 07/18/23 17:08 IMPRESSION: No lung mass. Stable small pulmonary nodules. CT follow-up as per protocol. Stable postsurgical changes to the right lower lobe. Interval decrease in the right pleural effusion. Fleischner guidelines were followed. Hip CT 07/18/23 17:09 IMPRESSION: Mild left hip osteoarthritis. Discharge Plan Discharge Anticipated Discharge Date/Time: 07/22/23 10:52 Patient Disposition: Home, Self-Care Discharge Diagnosis: Myasthenia gravis exacerbation Referrals: Gifty Frankel MD [Primary Care Provider] - 1 Week Discharge Medications: Continued nitroglycerin 0.4 mg tablet, sublingual 0.4 mg sublingual Q5M PRN (Reason: chest pain) Qty: 30 0RF Rx Instructions: do not exceed 3 doses per episode albuterol sulfate [Ventolin HFA] 90 mcg/actuation HFA aerosol inhaler 2 puff inhalation Q4-6H PRN (Reason: Wheezing) Qty: 18 0RF levothyroxine 50 mcg tablet 50 mcg PO DAILY 30 Days Qty: 90 3RF aspirin [Enteric Coated Aspirin] 81 mg tablet,delayed release (DR/EC) 81 mg PO DAILY Qty: 90 3RF Stiolto Respimat 2.5-2.5 mcg/actuation mist 2 puff PO DAILY Qty: 4 3RF lisinopril 20 mg tablet 20 mg PO DAILY Qty: 90 2RF omeprazole 20 mg capsule,delayed release(DR/EC) 20 mg PO DAILY Qty: 90 1RF rosuvastatin [Crestor] 5 mg tablet 5 mg PO DAILY Qty: 60 3RF acetaminophen [Tylenol] 325 mg Tablet 650 mg PO Q6H PRN (Reason: Pain) multivitamin Capsule 1 cap PO DAILY oxycodone-acetaminophen 5-325 mg tablet 1 tab PO Q6H PRN (Reason: pain) Qty: 5 0RF Rx Instructions: Partial Fill upon patient request. prednisone 20 mg tablet 20 mg PO DAILY Qty: 30 0RF mirabegron 25 mg tablet extended release 24 hr 25 mg PO DAILY clotrimazole-betamethasone 1-0.05 % cream 1 applic topical DAILY PRN (Reason: Rash) pyridostigmine bromide 60 mg tablet 60 mg PO TID Discharge Orders: Discharge Order (Routine); Ordered 07/22/23 Ordered By: Soham Cary Diet: Advance to usual diet Activity on Discharge: As tolerated Stand Alone Forms: Patient Portal Discharge page Care Plan Goals: Read below Health Concerns: Read below Plan of Treatment: Read below Assessment: You were admitted for Myasthenia gravise exacerbation requiring monitoring in ICU, IVIG and steroids with good response over the course of hospital stay as you were evaluated by a neurologist. Continue home medications as prescribed Prednisone 20 mg daily until you see dr Saez in 2-3 weeks To follow with Neurology as outpatient
[2023-07-22 11:16] VITALS: BP 109/63; PULSE 57; RESP 18; TEMP 36.7; O2SAT 97
[2023-07-22 13:20] VITALS: BP 109/63; PULSE 57; O2SAT 97
--- NOTE | 2023-07-22 13:47 | MHC.CM.PN ---
DP: PT HAS BEEN MEDICALLY CLEARED FOR DC HOME, NO SERVICES. PT HAS CAR IN LOT AND WILL SELF TRANSPORT.
[2023-07-28 20:08] LABS: Acetylcholine Recept. Blocking 19 (<15)
[2023-08-05 16:39] LABS: Acetylcholine Receptor Binding 37.83 nmol/L
[2023-08-05 20:03] LABS: Acetylcholine Recep Modulating 93
== END 2023-07-22 14:08 | disposition home or self-care (01) | DRG 57 ==
LOC: HO.ED 19:43 → HO.EDOVER 19:56 → HO.ICU 20:02 → HO.IMC 07-19 08:36
PROVIDERS: Internal Medicine; Internal Medicine Cardiovascular Disease; Physician Assistant; Admitting Provider Registered Nurse Community Health; Emergency Provider Emergency Medicine; PCP Internal Medicine; Visit Provider Student in an Organized Health Care Education/Training Program
DX: G70.01 Myasthenia gravis with (acute) exacerbation (principal); E27.40 Unspecified adrenocortical insufficiency; I47.20 Ventricular tachycardia, unspecified; E03.9 Hypothyroidism, unspecified; G89.4 Chronic pain syndrome; E78.5 Hyperlipidemia, unspecified; N40.1 Benign prostatic hyperplasia with lower urinary tract symptoms; R35.1 Nocturia; I25.10 Atherosclerotic heart disease of native coronary artery without angina pectoris; Z20.822 Contact with and (suspected) exposure to COVID-19; Z96.82 Presence of neurostimulator; Z90.2 Acquired absence of lung [part of]; Z79.890 Hormone replacement therapy; Z79.899 Other long term (current) drug therapy
CPT/HCPCS: 0241U; 36415; 71046; 71250; 73700; 80048; 80053; 80076; 81003; 82803; 83519; 83735; 84100; 84443; 85025; 85027; 93005; 93306; 94010; 97161; 99285; J1200; J1569; J1650; J2920

== ENCOUNTER 2023-07-17 19:33 | Outpatient (BNV) | payer MEDICARE, MEDICAID, SELFPAY | END 2023-07-21 07:00 | PROVIDERS: Admitting Provider Registered Nurse Community Health; Emergency Provider Emergency Medicine; PCP Internal Medicine; Visit Provider Internal Medicine | DX: I51.7 Cardiomegaly (principal) | CPT/HCPCS: 93306 ==

== ENCOUNTER → 2023-07-17 19:33 | Outpatient (BNV) | payer MEDICARE, MEDICAID, SELFPAY | PROVIDERS: Admitting Provider Registered Nurse Community Health; Emergency Provider Emergency Medicine; PCP Internal Medicine; Visit Provider Registered Nurse Community Health | DX: G70.01 Myasthenia gravis with (acute) exacerbation (principal); J30.9 Allergic rhinitis, unspecified; M25.511 Pain in right shoulder; N32.89 Other specified disorders of bladder; R55 Syncope and collapse; R10.32 Left lower quadrant pain; R06.09 Other forms of dyspnea; I45.2 Bifascicular block; R35.1 Nocturia; N40.1 Benign prostatic hyperplasia with lower urinary tract symptoms; R06.00 Dyspnea, unspecified; R91.1 Solitary pulmonary nodule | CPT/HCPCS: 99291 ==

== ENCOUNTER → 2023-07-17 19:33 | Outpatient (BNV) | payer MEDICARE, MEDICAID, SELFPAY | PROVIDERS: Admitting Provider Registered Nurse Community Health; Emergency Provider Emergency Medicine; PCP Internal Medicine; Visit Provider Internal Medicine | DX: G70.01 Myasthenia gravis with (acute) exacerbation (principal) | CPT/HCPCS: 99232; 99239 ==

== ENCOUNTER 2023-07-25 09:48 | Outpatient (REF) | payer MEDICARE, MEDICAID, SELFPAY ==
[2023-07-25 13:51] LABS: C Reactive Protein 0.15 mg/dL (< or = 0.50)
== END 2023-07-25 09:49 | disposition home or self-care (01) ==
LOC: HO.HMGCLDS 09:48
PROVIDERS: PCP Internal Medicine; Visit Provider Internal Medicine Cardiovascular Disease
DX: E78.5 Hyperlipidemia, unspecified (principal)
CPT/HCPCS: 36415; 86140

== ENCOUNTER 2023-07-27 12:23 | Outpatient (AMB) | payer MEDICARE, MEDICAID, SELFPAY ==
[2023-07-27 12:40] VITALS: BMI 26.6
--- NOTE | 2023-07-27 12:40 | MHC.OFFVIS ---
Intake Vital Signs 07/27/23 12:40 Height 6 ft Weight 196 lb BMI 26.6 Intake Visit Reasons: Newprob- RT shoulder pain Intake Note: Olegario is a 73 year old right hand dominant male who presents today for a evaluation for his right shoulder pain for the last 4-5 months. No injury he can recall. States he is lifting heavy items very often. States he is limited ROM and is painful to do daily activities such as caring fo his friend. Patient reports his pain is worse when he tries to lift his right arm up. Hx of right NAREN. Allergies No Known Allergies [No Known Allergies*] Allergy (Verified 07/27/23 12:44) HPI Newprob- RT shoulder pain HPI Details 73-year-old right hand dominant male who presents in the office today for an evaluation of right shoulder pain. The patient reports pain for 4-5 months. He does not recall any injury. He states that he lifts heavy items often. He claims he has limited ROM that is painful when doing daily activities, such as caring for a friend. He states his pain is worse when he tries to lift his right upper extremity up. He reports a crunching in the right shoulder. He reports his pain is along the impingement arc. Patient denies a history of diabetes mellitus. Patient has a history of a right total hip arthroplasty. 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) Back pain Arthritis Chronic pain syndrome Spondylosis of lumbosacral region Disc degeneration, lumbar Hyperglycemia Abdominal pain Pulmonary nodule Hyperlipidemia Toe ulcer Iatrogenic adrenal insufficiency Multinodular thyroid COPD (chronic obstructive pulmonary disease) Myasthenia gravis Scoliosis Spondylosis of lumbosacral spine with radiculopathy Degenerative disc disease, lumbar Hypothyroid Leg cramps Emphysema of lung Iron deficiency anemia Osteoarthritis GERD (gastroesophageal reflux disease) JULIEN (dyspnea on exertion) Diastolic dysfunction Hypertension Surgical History Hx of hand surgery History of carpal tunnel surgery History of left inguinal hernia repair S/P insertion of spinal cord stimulator History of colonoscopy History of lung surgery (~11/2020) History of total right hip arthroplasty (~02/2018) History of hydrocelectomy Hx of tonsillectomy Family History Father No problems noted. Mother No problems noted. Social History Household Members: Spouse Housing: House Are you a primary healthcare corporate account director to a significant other at home: No Do you presently have visiting nurse or other home services: No Alcohol intake: never Patient Tobacco Use Status: Never used Tobacco e-Cigarette/Vaping Use: Never Used Second Hand Smoke Exposure: No service: No Current occupational status: retired Current occupation: right handed Cognitive needs: No Hearing needs: No Vision needs: No Review of Systems Const All systems reviewed & are unremarkable except as noted in HPI and below Physical Exam Vital Signs: BMI result Body Mass Index 26.6 Const General: cooperative and no acute distress Orientation/consciousness: patient oriented x3 Resp Effort & Inspection: normal respiratory effort and able to speak in complete sentences Cardio Peripheral pulses: Peripheral pulses 2+ throughout Skin General skin exam: no rashes or lesions noted Neuro General: patient oriented x3 Extrem Other: Right shoulder: Forward flexion and abduction to 90 degrees. External rotation to neutral. 2/5 strength with empty can. Negative drop arm. NVI. Office Procedures Joint Injection/Drain Joint Injection/Drain Primary Site: right shoulder Prep: site was prepped using aseptic technique, ethochloride spray was applied and injection warnings given Injected: 80 mg of, DepoMedrol, with 8 mL of (2% plain lidocaine ) and in the subcromial space Procedure: The patient tolerated the procedure well, but had some pain with the injection and there was some relief with the local anesthesia Coding 18284 - Large joint Procedure code (CPT) selection complete Results Reviewed Results Reviewed: 07/27/23 12:59 Lidocaine HCl 2 % MPF [Xylocaine 2 % MPF] 5 ml .ROUTE .STK-MED ONE methylPREDNISolone acetate [DEPO-MedroL] 80 mg .ROUTE .STK-MED ONE Assessment & Plan Assessment & Plan (1) Rotator cuff arthropathy of right shoulder: Code(s): M12.811 - Other specific arthropathies, not elsewhere classified, right shoulder (2) Arthritis of right glenohumeral joint: Code(s): M19.011 - Primary osteoarthritis, right shoulder Plan Mr. Leonard is a 73-year-old right hand dominant male who presents in the office today for an evaluation of right shoulder pain. The patient reports pain for 4-5 months. He does not recall any injury. He states that he lifts heavy items often. He claims he has limited ROM that is painful when doing daily activities, such as caring for a friend. He states his pain is worse when he tries to lift his right upper extremity up. He reports a crunching in the right shoulder. He reports his pain is along the impingement arc. Patient denies a history of diabetes mellitus. Patient has a history of a right total hip arthroplasty. I discussed the possibility of a right rotator cuff tear. I educated the patient about conservative treatments (cortisone injections and physical therapy) verses surgical intervention. I do not feel the patient is a good surgical candidate at this time due to the length of time he has had his symptoms. I offered the patient a referral to physical therapy. He states he is not willing to consider physical therapy at this time. He states he has attended physical therapy in the past for other body parts and reports he did not get relief and states it took to much time. The patient was offered a cortisone injection in the right shoulder with 80 mg of DepoMedrol. The patient was explained the risk, benefits, and alternatives to receiving this injection. After receiving consent for the injection, the patient had the procedure done while in office today. The patient tolerated the procedure well with no complications. I educated the patient that the injection could increase him pain temporarily and it could take a week before he gets relief. In the event the injection in the office does not give him pain relief he can call the office and we will consider moving forward with a cortisone injection under ultrasound guidance at the [facility]. Follow up will be PRN, or sooner if needed. X-rays of the right shoulder, obtained on 06/12/2023, revealed: 1. There is mild osteoarthritic change of the right glenohumeral joint. 2. Findings suggest right rotator cuff impingement, without christina calcific tendinitis. Patient Instructions: Scribed for Samantha Hernandez PA-C by Tere Carmona vice president medical affairs, on 07/27/2023 at 12:35 pm, EST. Coding Level of Care Code New Pt Level 4 (53072) Diagnoses Rotator cuff arthropathy of right shoulder M12.811 Arthritis of right glenohumeral joint M19.011 CPT Codes Coding - 49986 Large joint: 65638 - Large joint ([id number])
== END 2023-07-27 13:11 | disposition home or self-care (01) ==
PROVIDERS: PCP Internal Medicine; Visit Provider Physician Assistant
DX: M19.011 Primary osteoarthritis, right shoulder (principal)
CPT/HCPCS: 20610; 99214

== ENCOUNTER → 2023-07-27 12:23 | Outpatient (BNVA) | payer MEDICARE, MEDICAID, SELFPAY | PROVIDERS: PCP Internal Medicine; Visit Provider Physician Assistant | DX: M12.811 Other specific arthropathies, not elsewhere classified, right shoulder (principal) | CPT/HCPCS: 20610; 99212; J1040 ==

== ENCOUNTER 2023-08-03 10:55 | Outpatient (AMB) | payer MEDICARE, MEDICAID, SELFPAY ==
--- NOTE | 2023-08-03 11:00 | A.OFFVIS_ITS ---
Intake Intake Visit Reasons: New Prob - left hip pain Intake Note: Olegario is a 73 year old male who presents today for a evaluation for his left hip pain. Patient reports pain started about 3-4 months ago. He states that he had a right NAREN on 02/20/18 [place]. Pain is on the lateral aspect of the hip, and stays in that area per patient. He states that his pain is worse when walking and during bad weather. Allergies No Known Allergies [No Known Allergies*] Allergy (Verified 08/03/23 11:04) HPI New Prob - left hip pain HPI Details 73-year-old male who presents in the off ice today for an evaluation of left hip pain. The patient reports pain in the left hip which began about 3-4 months ago. He claims his pain is on the lateral aspect of the hip and does not radiate. He reports an increase in pain when ambulating and during bad weather. Patient has a surgical history of a right total hip arthroplasty on 02/20/[address] Craig. 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) Back pain Arthritis Chronic pain syndrome Spondylosis of lumbosacral region Disc degeneration, lumbar Hyperglycemia Abdominal pain Pulmonary nodule Hyperlipidemia Toe ulcer Iatrogenic adrenal insufficiency Multinodular thyroid COPD (chronic obstructive pulmonary disease) Myasthenia gravis Scoliosis Spondylosis of lumbosacral spine with radiculopathy Degenerative disc disease, lumbar Hypothyroid Leg cramps Emphysema of lung Iron deficiency anemia Osteoarthritis GERD (gastroesophageal reflux disease) JULIEN (dyspnea on exertion) Diastolic dysfunction Hypertension Surgical History (Updated 07/30/23 @ 00:02 by Shimon Rivas) History of carpal tunnel surgery of left wrist Hx of hand surgery History of carpal tunnel surgery History of left inguinal hernia repair S/P insertion of spinal cord stimulator History of colonoscopy History of lung surgery (~11/2020) History of total right hip arthroplasty (~02/2018) History of hydrocelectomy Hx of tonsillectomy Family History Father No problems noted. Mother No problems noted. Social History Household Members: Spouse Housing: House Are you a primary dialysis patient care technician to a significant other at home: No Do you presently have visiting nurse or other home services: No Alcohol intake: never Patient Tobacco Use Status: Never used Tobacco e-Cigarette/Vaping Use: Never Used Second Hand Smoke Exposure: No service: No Current occupational status: retired Current occupation: right handed Cognitive needs: No Hearing needs: No Vision needs: No Review of Systems Const All systems reviewed & are unremarkable except as noted in HPI and below Physical Exam Const General: cooperative, healthy appearing and no acute distress Resp Effort & Inspection: normal respiratory effort and able to speak in complete sentences Cardio Rate: regular rate Peripheral pulses: Peripheral pulses 2+ throughout GI Palpation (GI): Soft to palpation Skin Lesions: no lesions Rashes: no rashes Extrem Other: Left hip: Normal to inspection. No ecchymosis, erythema, or edema. Full hip ROM in all planes. Tenderness to palpation over the greater trochanteric bursa. 5/5 strength with resisted hip flexion, knee extension, abduction, and abduction. Able to perform straight leg raise. NVI. Office Procedures Joint Injection/Drain Joint Injection/Drain Primary Site: other (left greater troch bursa) Prep: site was prepped using aseptic technique, ethochloride spray was applied and injection warnings given Injected: 80 mg of, DepoMedrol, with 8 mL of (2% plain lido ) and other (greater troch bursa) Approach Used: other (lateral) Procedure: The patient tolerated the procedure well, but had some pain with the injection and there was some relief with the local anesthesia Coding 52319 - Large joint Procedure code (CPT) selection complete Results Reviewed Results Reviewed: 08/03/23 11:10 Lidocaine HCl 2 % MPF [Xylocaine 2 % MPF] 5 ml .ROUTE .STK-MED ONE methylPREDNISolone acetate [DEPO-MedroL] 80 mg .ROUTE .STK-MED ONE Assessment & Plan Assessment & Plan (1) Greater trochanteric bursitis of left hip: Code(s): M70.62 - Trochanteric bursitis, left hip Plan Mr. Leonard is a 73-year-old male who presents in the office today for an evaluation of left hip pain. The patient reports pain in the left hip which began about 3-4 months ago. He claims his pain is on the lateral aspect of the hip and does not radiate. He reports an increase in pain when ambulating and during bad weather. Patient has a surgical history of a right total hip arthroplasty on 02/20/[address] Craig. The patient was offered a cortisone injection in the left hip with 80 mg of DepoMedrol. The patient was explained the risk, benefits, and alternatives to receiving this injection. After receiving consent for the injection, the patient had the procedure done while in office today. The patient tolerated the procedure well with no complications. Follow up will be PRN, or sooner if needed. Patient Instructions: Scribed for Samantha Hernandez PA-C by Tere Carmona medical transcriber, on 08/03/2023 at 11:01 am, EST. Coding Level of Care Code Est Pt Level 3 (54169) Diagnoses Greater trochanteric bursitis of left hip M70.62 CPT Codes Coding - 80696 Large joint: 81031 - Large joint ([id number])
== END 2023-08-03 11:34 | disposition home or self-care (01) ==
PROVIDERS: PCP Internal Medicine; Visit Provider Physician Assistant
DX: M70.62 Trochanteric bursitis, left hip (principal)
CPT/HCPCS: 20610; 99213

== ENCOUNTER → 2023-08-03 10:55 | Outpatient (BNVA) | payer MEDICARE, MEDICAID, SELFPAY | PROVIDERS: PCP Internal Medicine; Visit Provider Physician Assistant | DX: M70.62 Trochanteric bursitis, left hip (principal) | CPT/HCPCS: 20610; 99212; J1040 ==

== ENCOUNTER 2023-08-07 10:03 | Outpatient (AMB) | payer MEDICARE, MEDICAID, SELFPAY ==
[2023-08-07 10:19] VITALS: BP 136/66; PULSE 64; RESP 14; O2SAT 96; BMI 27.0
--- NOTE | 2023-08-07 10:19 | A.OFFVIS_ITS ---
Intake Vital Signs 08/07/23 10:19 Height 6 ft Weight 199 lb 2 oz BMI 27.0 BP 136/66 Blood Pressure Location Rt brachial Position Sitting Respiration 14 Pulse 64 Pulse Source Pulse Oximeter Pulse Oximetry (%) 96 Oxygen Delivery Method Room Air Intake Visit Reasons: Primary Osteoarthritis, Right Shoulder/Confirmed Allergies No Known Allergies [No Known Allergies*] Allergy (Verified 08/07/23 10:21) HPI HPI Comments History of Present Illness Details Olegario is back in my office after 2 years of absence with complains on new pain which is not covered by his spinal cord stimulator. He reports pain in the projection of the posterior lumbar area on the right side with radiation into the right anterior abdomen and associated with severe nausea and dry heaves. I suspected that this patient might suffer from new condition, I feel I have to rule out posterior abdominal wall hernias such is petitt hernia or leshaft hernia. To rule out or confirm this condition I would like to perform CT of the abdomen and pelvis with oral contrast only. I also would like to see appropriate position of the patient's single epidural lead of Nevro SCS. I will send him for thoracic spine x-ray anterior posterior and lateral. If the CT will result in no source of pain from the abdominal cavity or retroperitoneal space I probably will send him for an MRI of the lumbar spine. There is a possibility that this pain is coming from ureter and or kidneys as well. Prior: pleasant 70 y.o. status post a implant of the SCS Nevro. He reported very good help with the pain with single lead he has in his lumbar spine. The implant was very difficult. The patient has severe DDD, severe narrowing of the intalaminar spaces and abundant epidural adhesions. I have managed to insert only one epidural electrode array lead. 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) Back pain Arthritis Chronic pain syndrome Spondylosis of lumbosacral region Disc degeneration, lumbar Hyperglycemia Abdominal pain Pulmonary nodule Hyperlipidemia Toe ulcer Iatrogenic adrenal insufficiency Multinodular thyroid COPD (chronic obstructive pulmonary disease) Myasthenia gravis Scoliosis Spondylosis of lumbosacral spine with radiculopathy Degenerative disc disease, lumbar Hypothyroid Leg cramps Emphysema of lung Iron deficiency anemia Osteoarthritis GERD (gastroesophageal reflux disease) JULIEN (dyspnea on exertion) Diastolic dysfunction Hypertension Surgical History (Updated 07/30/23 @ 00:02 by Shimon Rivas) History of carpal tunnel surgery of left wrist Hx of hand surgery History of carpal tunnel surgery History of left inguinal hernia repair S/P insertion of spinal cord stimulator History of colonoscopy History of lung surgery (~11/2020) History of total right hip arthroplasty (~02/2018) History of hydrocelectomy Hx of tonsillectomy Family History Father No problems noted. Mother No problems noted. Social History Household Members: Spouse Housing: House Are you a primary wound care nurse to a significant other at home: No Do you presently have visiting nurse or other home services: No Alcohol intake: never Patient Tobacco Use Status: Never used Tobacco e-Cigarette/Vaping Use: Never Used Second Hand Smoke Exposure: No service: No Current occupational status: retired Current occupation: right handed Cognitive needs: No Hearing needs: No Vision needs: No Review of Systems Const All systems reviewed & are unremarkable except as noted in HPI and below Physical Exam Vital Signs: Last Vital Signs Pulse 64 08/07/23 10:19 Resp 14 08/07/23 10:19 BP 136/66 08/07/23 10:19 Pulse Ox 96 08/07/23 10:19 Oxygen Delivery Method Room Air 08/07/23 10:19 BMI result Body Mass Index 27.0 Const General: comfortable, no acute distress, alert and awake HEENT Head: Yes normal to inspection Eyes General: appearance normal, both eyes and all related structures Neck Neck: Yes normal visual inspection and Yes no JVD Resp Effort & Inspection: able to speak in complete sentences and no audible wheezes Cardio Jugular venous distension: no JVD GI Other: There is tenderness on palpation in the projection of the right iliac crest and right pelvis. Sacroiliac joint provocative tests are negative. Inspection: Yes normal to inspection Back/Spine/Pelvis Other: Bending forward with ease a and bending backwards causes him severe pain agg ravation. Able to walk on the tip toes with a limp in the left, antalgic gait on the left was walking on the heels as well. Objective weakness of the left lower extremity. Straight leg rising is negative for pain increase in the back, and dorsiflexion of the foot does not cause pain aggravation in the back. Lateral rotation of the foot does not cause pain in the hip, does not cause pain in the groin. Provocative test of the sacroiliac joint on the right are negative Extrem Other: no clubbing, no edema, no sign of phlebitis, PT pulse bilaterally is very easily operate handed, regular rate and rhythm. Dorsalis pedis is non sensed on physical exam,. Assessment & Plan Assessment & Plan (1) Petit triangle hernia: Code(s): K45.8 - Other specified abdominal hernia without obstruction or gangrene (2) Other specified abdominal hernia without obstruction or gangrene: Code(s): K45.8 - Other specified abdominal hernia without obstruction or gangrene (3) Myasthenia gravis: Code(s): G70.00 - Myasthenia gravis without (acute) exacerbation (4) Abdominal pain: Code(s): R10.9 - Unspecified abdominal pain (5) Renal cyst: Code(s): N28.1 - Cyst of kidney, acquired Plan I will schedule this patient for CT with oral contrast. That should demonstrate or rule out posterior abdominal wall hernias. This may also demonstrate some changes in the right ureter and or kidney pelvis which could cause pain like the patient presents today with. I also will schedule him for plain x-ray of the thoracic spine to evaluate proper position of the epidural lead from spinal cord stimulator NevroCarisa Ibrahim, the Nevro rep, will get into contact with the patient and tried to adjust the stimulation to cover patient's pain. It is unlikely that this pain if it is coming from the ureter or hernia will be covered by stimulation. I will see this patient for an appointment in 3 weeks. Orders: Orders CT abdomen pelvis wo IV con Today K45.8 - Other specified abdominal hernia without obstruction or gangrene Coding Level of Care Code Est Pt Level 4 (63606) Diagnoses Petit triangle hernia K45.8 Other specified abdominal hernia without obstruction or gangrene K45.8 Myasthenia gravis G70.00 Abdominal pain R10.9 Renal cyst N28.1
== END 2023-08-07 10:44 | disposition home or self-care (01) ==
PROVIDERS: PCP Internal Medicine; Visit Provider Anesthesiology
DX: K45.8 Other specified abdominal hernia without obstruction or gangrene (principal); G70.00 Myasthenia gravis without (acute) exacerbation; R10.9 Unspecified abdominal pain; N28.1 Cyst of kidney, acquired
CPT/HCPCS: 99213

== ENCOUNTER → 2023-08-07 10:03 | Outpatient (BNVA) | payer MEDICARE, MEDICAID, SELFPAY | PROVIDERS: PCP Internal Medicine; Visit Provider Anesthesiology | DX: M19.011 Primary osteoarthritis, right shoulder (principal); M47.27 Other spondylosis with radiculopathy, lumbosacral region; M51.36 Other intervertebral disc degeneration, lumbar region; G89.4 Chronic pain syndrome; G70.00 Myasthenia gravis without (acute) exacerbation; K45.8 Other specified abdominal hernia without obstruction or gangrene; R10.9 Unspecified abdominal pain; N28.1 Cyst of kidney, acquired; Z96.82 Presence of neurostimulator | CPT/HCPCS: 99212 ==

== ENCOUNTER 2023-08-09 09:17 | Outpatient (AMB) | payer MEDICARE, MEDICAID, SELFPAY ==
--- NOTE | 2023-08-09 09:18 | A.OFFPC_ITS ---
Vital Signs 08/09/23 09:20 Height 6 ft Weight 202 lb BMI 27.4 BP 112/62 Blood Pressure Location Rt brachial Position Sitting Pulse 65 Pulse Source Pulse Oximeter Pulse Oximetry (%) 98 Oxygen Delivery Method Room Air Intake Visit Reasons: [facility] ED fu Intake Note: Pt is here today for Hospital follow up visit. Allergies No Known Allergies [No Known Allergies*] Allergy (Verified 08/07/23 10:21) Tobacco use date assessed: 08/09/23 Dental Screening Dental Screen Date: 08/09/23 Did you have a dental visit in the last 12 months?: No Did you have a dental problem in the last 6 months where you did not have access to dental care?: Yes Was dental information given to patient?: Yes HPI [facility] ED fu HPI0 Details Pt presents for f/u hospitalization for myasthenia gravis s/p IVIG therapy for 5 days, and f/u with neurology and tapering the dose of Prednisone. HTN, hypothroid, COPD, stable on meds. Patient follows up with pain management for lumbar spine stenosis and is contemplating a stimulator implantation [facility] Medical History (Updated 08/09/23 @ 10:28 by Gifty Frankel MD) Hyperlipidemia COPD (chronic obstructive pulmonary disease) Hypothyroid Shoulder pain, right Bladder instability Syncope Chronic dyspnea Bifascicular block Nocturia more than twice per night JULIEN (dyspnea on exertion) Incomplete emptying of bladder due to benign prostatic hyperplasia Nocturia associated with benign prostatic hyperplasia BPH loc w urin obs/LUTS Allergic rhinitis Left inguinal pain Elevated troponin Syncope Preop cardiovascular exam Vasovagal episode Left inguinal hernia 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) Back pain Arthritis Chronic pain syndrome Spondylosis of lumbosacral region Disc degeneration, lumbar Hyperglycemia Abdominal pain Pulmonary nodule Toe ulcer Iatrogenic adrenal insufficiency Multinodular thyroid Myasthenia gravis Scoliosis Spondylosis of lumbosacral spine with radiculopathy Degenerative disc disease, lumbar Leg cramps Emphysema of lung Iron deficiency anemia Osteoarthritis GERD (gastroesophageal reflux disease) JULIEN (dyspnea on exertion) Diastolic dysfunction Hypertension Surgical History (Updated 07/30/23 @ 00:02 by Shimon Rivas) History of carpal tunnel surgery of left wrist Hx of hand surgery History of carpal tunnel surgery History of left inguinal hernia repair S/P insertion of spinal cord stimulator History of colonoscopy History of lung surgery (~11/2020) History of total right hip arthroplasty (~02/2018) History of hydrocelectomy Hx of tonsillectomy Family History Father No problems noted. Mother No problems noted. Social History Household Members: Spouse Housing: House Are you a primary vocational childcare teacher to a significant other at home: No Do you presently have visiting nurse or other home services: No Alcohol intake: never Patient Tobacco Use Status: Never used Tobacco e-Cigarette/Vaping Use: Never Used Second Hand Smoke Exposure: No service: No Current occupational status: retired Current occupation: right handed Cognitive needs: No Hearing needs: No Vision needs: No Questionnaire Thrive Questionnaire Date Thrive assessed: 07/18/23 AUDIT C Alcohol Use Questionnaire (AUDIT-C) 1. How often do you have a drink containing alcohol?: Never 3. How often do you have six or more drinks on one occasion?: Never Total Score: 0 GAETANO-7 AMB Questionnaire GAETANO-7 Date GAETANO - 7 assessed: 01/19/22 Source: Developed by Drs. Patrice Kay, Lesley Calderón, Duran Barrios and colleagues, with an educational danica from [email or web address]. Review of Systems Const All systems reviewed & are unremarkable except as noted in HPI and below Reports no additional complaints Eyes Reports no additional complaints ENT Reports no additional complaints Card Reports no additional complaints Resp Reports no additional complaints GI Reports no additional complaints Reports no additional complaints Physical exam (Primary Care) Vital Signs: Last Vital Signs Pulse 65 08/09/23 09:20 BP 112/62 08/09/23 09:20 Pulse Ox 98 08/09/23 09:20 Oxygen Delivery Method Room Air 08/09/23 09:20 BMI result Body Mass Index 27.4 Tobacco/Smoking Status: Tobacco use Status Tobacco use date assessed 08/09/23 08/09/23 09:27 Patient Tobacco Use Status Never used Tobacco 08/09/23 09:18 e-Cigarette/Vaping Use Never Used 08/09/23 09:18 Thrive Assessment: Date of Thrive Assessment Date Thrive assessed 07/18/23 08/09/23 09:18 Const General: no acute distress HENMT Face and sinus: Yes normal facial exam Neck Neck: Yes supple Resp Effort & Inspection: normal respiratory effort Auscultation: clear to auscultation bilaterally Cardio Rhythm: regular rhythm Heart sounds: S1 normal heart sound present and S2 normal heart sound present GI Inspection: Yes normal to inspection Palpation (GI): Soft to palpation Percussion: Yes normal to percussion Assessment and Plan Assessment & Plan (1) Myasthenia gravis: Code(s): G70.00 - Myasthenia gravis without (acute) exacerbation Plan: cont current tx, f/u with neurology (2) COPD (chronic obstructive pulmonary disease): Comment: HE HAS MODERATELY SEVERE CHRONIC OBSTRUCTIVE PULMONARY DISORDER. WITH HIS CURRENT MEDICAL REGIMEN HIS PULMONARY STATUS IS STAYING STABLE. * SPIROMETRY IN THE OFFICE TODAY BUT COMPARED TO 2018 HIS NUMBERS ARE ACTUALLY SIZE SLIGHTLY BETTER. TX :CONTINUE TO USE STIOLTO INHALOR 2 INH DAILY . DOES NOT NEED ICS , HE IS ON ORAL PREDNISONE ADVISED TO CHECK HIS PEAK FLOWS REGULARLY . ALSO ADVISED TO KEEP ON DOING DEEP BREATHING EXERCISES 2 OR 3 TIMES A DAY. Code(s): J44.9 - Chronic obstructive pulmonary disease, unspecified Plan: cont inhalers (3) Hypothyroid: Code(s): E03.9 - Hypothyroidism, unspecified Qualifiers: Hypothyroidism type: unspecified Qualified Code(s): E03.9 - Hypothyroidism, unspecified Plan: cont Levothyroxine (4) Hyperlipidemia: Code(s): E78.5 - Hyperlipidemia, unspecified Plan: cont Crestor Coding Level of Care Code Est Pt Level 4 (00394) Diagnoses Myasthenia gravis G70.00 COPD (chronic obstructive pulmonary disease) J44.9 Hypothyroidism, unspecified type E03.9 Hypothyroidism type: unspecified Hyperlipidemia E78.5
[2023-08-09 09:20] VITALS: BP 112/62; PULSE 65; O2SAT 98; BMI 27.4
== END 2023-08-09 10:00 | disposition home or self-care (01) ==
PROVIDERS: PCP Internal Medicine; Visit Provider Internal Medicine
DX: G70.00 Myasthenia gravis without (acute) exacerbation (principal); J44.9 Chronic obstructive pulmonary disease, unspecified; E03.9 Hypothyroidism, unspecified; E78.5 Hyperlipidemia, unspecified
CPT/HCPCS: 99214

== ENCOUNTER 2023-08-15 09:55 | Outpatient (AMB) | payer MEDICARE, MEDICAID, SELFPAY ==
--- NOTE | 2023-08-15 11:40 | MHC.OFFWIV ---
Intake Vital Signs 08/15/23 11:44 Height 6 ft Weight 204 lb BMI 27.7 BP 110/62 Blood Pressure Location Lt brachial Position Sitting Pulse 76 Pulse Source Pulse Oximeter Temp 97.8 F Temp Source Temporal Artery Scan Pulse Oximetry (%) 97 Intake Visit Reasons: EP, left hand wound [phone] Intake Note: pt is here for c/o left hand wound, states was in hospital last month and has infection where IV was Patient Tobacco Use Status: Never used Tobacco Allergies No Known Allergies [No Known Allergies*] Allergy (Verified 08/15/23 11:45) Do you need a note to return to daycare/school/sports/work: Yes HPI HPI Comments History of Present Illness Details 71-year-old male history of myasthenia gravis that presents for hand wound. Patient was recently in hospital to receive IVIG infusions an IV in his left hand. After discharge Balderrama fine but the device week week and half he noticed a dark spot growing with the IV site was is concern for infection. He denies any pain, itching, swelling, fever or chills. 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) Back pain Arthritis Chronic pain syndrome Spondylosis of lumbosacral region Disc degeneration, lumbar Hyperglycemia Abdominal pain Pulmonary nodule Toe ulcer Iatrogenic adrenal insufficiency Multinodular thyroid Myasthenia gravis Scoliosis Spondylosis of lumbosacral spine with radiculopathy Degenerative disc disease, lumbar Leg cramps Emphysema of lung Iron deficiency anemia Osteoarthritis GERD (gastroesophageal reflux disease) JULIEN (dyspnea on exertion) Diastolic dysfunction Hypertension Surgical History (Updated 07/30/23 @ 00:02 by Shimon Rivas) History of carpal tunnel surgery of left wrist Hx of hand surgery History of carpal tunnel surgery History of left inguinal hernia repair S/P insertion of spinal cord stimulator History of colonoscopy History of lung surgery (~11/2020) History of total right hip arthroplasty (~02/2018) History of hydrocelectomy Hx of tonsillectomy Family History Father No problems noted. Mother No problems noted. Social History Household Members: Spouse Housing: House Are you a primary care advocate to a significant other at home: No Do you presently have visiting nurse or other home services: No Alcohol intake: never Patient Tobacco Use Status: Never used Tobacco e-Cigarette/Vaping Use: Never Used Second Hand Smoke Exposure: No service: No Current occupational status: retired Current occupation: right handed Cognitive needs: No Hearing needs: No Vision needs: No Review of Systems Skin/Breast Reports new lesions Physical Exam Vital Signs: Last Vital Signs Temp 97.8 F 08/15/23 11:44 Pulse 76 08/15/23 11:44 BP 110/62 08/15/23 11:44 Pulse Ox 97 08/15/23 11:44 BMI result Body Mass Index 27.7 Const General: healthy appearing, comfortable, no acute distress and alert Orientation/consciousness: patient oriented x3 Limitations: no limitations HEENT Head: Yes normal to inspection Ears: hearing grossly normal bilaterally Resp Effort & Inspection: normal respiratory effort and able to speak in complete sentences Cardio Rate: regular rate Skin Other: small circular lesion on the dorsal surface of the left hand proximal to the base of the 1st metacarpal. No erythema, more likely crusty or scaling Neuro General: patient oriented x3 Extrem General: Yes normal to inspection Assessment & Plan Assessment & Plan (1) Skin lesion: Code(s): L98.9 - Disorder of the skin and subcutaneous tissue, unspecified Plan: VSS. Exam patient presents alert and oriented no acute distress exam is notable for small circular lesion on the dorsal surface of the left hand proximal to the base of the 1st metacarpal. No erythema, more likely crusty or scaling. unclear etiology of patient's lesion. Could be healing from IV insertion low suspicion for dermal bite is her acute cellulitis given no warmth erythema low suspicion for fungal given no scaling or a pureed is. At this time will recommend watchful waiting and following up with PCP. Discharge instructions, follow up and treatment are discussed with patient in my usual fashion. Alternatives in treatment are also discussed. The patient will return for worsening symptoms or as needed. Advised that any labs/imaging ordered will be followed up on and contact made if further treatment needed. Counseled that patient's condition may require further evaluation and/or treatment. Symptoms of concern for worsening disorder discussed in detail in my customary manner. Patient does verbalize understanding of the plan, there are no apparent barriers to communication. The patient is given the opportunity to ask questions and have them answered to his/her satisfaction Coding Level of Care Code Est Pt Level 2 (97547) Diagnoses Skin lesion L98.9
[2023-08-15 11:44] VITALS: BP 110/62; PULSE 76; TEMP 36.6; O2SAT 97; BMI 27.7
== END 2023-08-15 12:21 | disposition home or self-care (01) ==
PROVIDERS: PCP Internal Medicine; Visit Provider Physician Assistant
DX: L98.9 Disorder of the skin and subcutaneous tissue, unspecified (principal)
CPT/HCPCS: 99212

== ENCOUNTER 2023-08-18 12:59 | Outpatient (REF) | payer MEDICARE, MEDICAID, SELFPAY ==
--- NOTE | ~2023-08-18 | CT_ITS ---
EXAMINATION: CT ABDOMEN AND PELVIS WITHOUT CONTRAST CLINICAL INFORMATION: Abdominal hernia. COMPARISON: None. TECHNIQUE: Multidetector volumetric imaging was performed from the superior aspect of the liver through the pubic symphysis. Sagittal and coronal reformatted images were obtained on the technologist's workstation. This CT examination was performed using dose optimization techniques as appropriate, variously including the following: *Automated exposure control *Adjustment of mA and/or kV according to patient size (this includes techniques or standardized protocols for targeted exams where dose is matched to indication/reason for exam; i.e. extremities or head) *Use of iterative reconstruction technique DLP: 556 mGy-cm FINDINGS: LUNG BASES: Surgical changes right lower lobe. Right coronary calcium. LIVER, GALLBLADDER, AND BILIARY TREE: The liver is normal in size, shape, and attenuation. No focal hepatic lesion or biliary ductal dilatation is present. The gallbladder is unremarkable with no evidence of radiopaque gallstones, gallbladder wall thickening, or obvious pericholecystic inflammatory changes. PANCREAS: No discrete mass. No ductal dilatation. SPLEEN: Coarse calcification in the upper pole the spleen may reflect a granuloma or remote trauma. ADRENAL GLANDS: No adrenal mass. KIDNEYS AND URETERS: Parapelvic cysts bilaterally. Small simple cyst in the lower left kidney posteriorly. No follow-up imaging is recommended. No nephrolithiasis or hydronephrosis. BLADDER: Unremarkable. GASTROINTESTINAL TRACT: The small bowel is normal in caliber. The large bowel is normal in caliber. The appendix appears normal. There is mild sigmoid diverticulosis without evidence of diverticulitis. ABDOMINAL WALL: Tiny fat-containing periumbilical hernia. Question left inguinal hernia repair. The previously seen fat-containing hernia is there is no evidence of recurrence. There is fat in the right inguinal canal without a discrete fascial defect. LYMPH NODES: No lymphadenopathy. VASCULAR: Tortuous aorta due to scoliosis. There is no aneurysm. Mild atherosclerosis. PELVIC VISCERA: The prostate obscured by artifact from the hip replacement. OSSEOUS STRUCTURES: Scoliosis. Severe degenerative changes in the spine. Right hip replacement. CT/CT abdomen pelvis wo IV con IMPRESSION: Tiny fat-containing periumbilical hernia. Suspect left inguinal hernia repair. Fat in the right inguinal canal without a discrete fascial defect. This could represent an indirect hernia. This is stable compared to CT pelvis 05/08/2021. Fleischner guidelines were followed.
[2023-08-18] MEDS: Barium Sulfate Oral (Vanilla) 450 ML ORAL.SUSP 900 ML PO (15:12)
== END 2023-08-18 13:00 | disposition home or self-care (01) ==
LOC: HO.CT 12:59
PROVIDERS: PCP Internal Medicine; Visit Provider Anesthesiology
DX: K45.8 Other specified abdominal hernia without obstruction or gangrene (principal)
CPT/HCPCS: 74176

== ENCOUNTER 2023-08-28 08:21 | Outpatient (AMB) | payer MEDICARE, MEDICAID, SELFPAY ==
--- NOTE | 2023-08-28 08:23 | A.OFFVIS_ITS ---
Intake Vital Signs 08/28/23 08:33 Height 6 ft Weight 202 lb BMI 27.4 BP 134/90 H Blood Pressure Location Lt brachial Position Sitting Respiration 16 Pulse 70 Pulse Source Pulse Oximeter Pulse Oximetry (%) 98 Oxygen Delivery Method Room Air Intake Visit Reasons: 3 WEEK FOLLOW UP/Nevro Allergies No Known Allergies [No Known Allergies*] Allergy (Verified 08/28/23 08:34) HPI HPI Comments History of Present Illness Details Olegario is back in my office after CT scan I sent him to evaluate the pain on the right abdomen which radiates to the right flank with nausea and dry heaves. He is patient of Dr. Romero in he was operated on left inguinal hernia in the past. CT scan demonstrated possible hernia track the right. He has an appointment with Dr. Romero. As of his Nevro SCS the position of the lead is changed compared to it original position on the CT scan it looks like that lead migrated down to the T10-T11 area. Patient reports that it helps better with his sciatica however it fails to help axial back pain. We agreed today that he will go to Dr. Romero and he will discuss the surgery and whether not it is indicated for him. After that he will come back and we will discuss possibility of treatment of his pain with different modalities. I currently think about intrathecal pain pump he is not on any opioids so the pain pump with Dilaudid might be a good way of treating his pain. Because he is suffering from myasthenia gravis I am not sure that addition of any medications to the pump which provide muscular relaxation such as bupivacaine and or baclofen would be a good idea to consider but the time only will show what we can do about it. Never cordage sales representative Alexandria Lew was working today with the patient in trying to provide stimulations which could be helpful for his axial back pain as well as pain in the sciatica. Prior: pleasant 70 y.o. status post a implant of the SCS Nevro. He reported very good help with the pain with single lead he has in his lumbar spine. The implant was very difficult. The patient has severe DDD, severe narrowing of the intalaminar spaces and abundant epidural adhesions. I have managed to insert only one epidural electrode array lead originally to T9 level. The 2nd lead was not possible to insert. Currently suffering from myasthenia gravis. 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) Back pain Arthritis Chronic pain syndrome Spondylosis of lumbosacral region Disc degeneration, lumbar Hyperglycemia Abdominal pain Pulmonary nodule Toe ulcer Iatrogenic adrenal insufficiency Multinodular thyroid Myasthenia gravis Scoliosis Spondylosis of lumbosacral spine with radiculopathy Degenerative disc disease, lumbar Leg cramps Emphysema of lung Iron deficiency anemia Osteoarthritis GERD (gastroesophageal reflux disease) JULIEN (dyspnea on exertion) Diastolic dysfunction Hypertension Surgical History (Updated 07/30/23 @ 00:02 by Shimon Rivas) History of carpal tunnel surgery of left wrist Hx of hand surgery History of carpal tunnel surgery History of left inguinal hernia repair S/P insertion of spinal cord stimulator History of colonoscopy History of lung surgery (~11/2020) History of total right hip arthroplasty (~02/2018) History of hydrocelectomy Hx of tonsillectomy Family History Father No problems noted. Mother No problems noted. Social History Household Members: Spouse Housing: House Are you a primary continuum of care manager to a significant other at home: No Do you presently have visiting nurse or other home services: No Alcohol intake: never Patient Tobacco Use Status: Never used Tobacco e-Cigarette/Vaping Use: Never Used Second Hand Smoke Exposure: No service: No Current occupational status: retired Current occupation: right handed Cognitive needs: No Hearing needs: No Vision needs: No Review of Systems Const All systems reviewed & are unremarkable except as noted in HPI and below Physical Exam Vital Signs: Last Vital Signs Pulse 70 08/28/23 08:33 Resp 16 08/28/23 08:33 BP 134/90 H 08/28/23 08:33 Pulse Ox 98 08/28/23 08:33 Oxygen Delivery Method Room Air 08/28/23 08:33 BMI result Body Mass Index 27.4 Const General: comfortable, no acute distress, alert and awake HEENT Head: Yes normal to inspection Eyes General: appearance normal, both eyes and all related structures Neck Neck: Yes normal visual inspection and Yes no JVD Resp Effort & Inspection: able to speak in complete sentences and no audible wheezes Cardio Jugular venous distension: no JVD GI Other: There is tenderness on palpation in the projection of the right iliac crest and right pelvis. Sacroiliac joint provocative tests are negative. Inspection: Yes normal to inspection Back/Spine/Pelvis Other: Bending forward with ease a and bending backwards causes him severe pain aggravation. Able to walk on the tip toes with a limp in the left, antalgic gait on the left was walking on the heels as well. Objective weakness of the left lower extremity. Straight leg rising is negative for pain increase in the back, and dorsiflexion of the foot does not cause pain aggravation in the back. Lateral rotation of the foot does not cause pain in the hip, does not cause pain in the groin. Provocative test of the sacroiliac joint on the right are negative Extrem Other: no clubbing, no edema, no sign of phlebitis, PT pulse bilaterally is very easily operate handed, regular rate and rhythm. Dorsalis pedis is non sensed on physical exam,. Assessment & Plan Assessment & Plan (1) Petit triangle hernia: Code(s): K45.8 - Other specified abdominal hernia without obstruction or gangrene (2) Other specified abdominal hernia without obstruction or gangrene: Code(s): K45.8 - Other specified abdominal hernia without obstruction or gangrene (3) Myasthenia gravis: Code(s): G70.00 - Myasthenia gravis without (acute) exacerbation (4) Abdominal pain: Code(s): R10.9 - Unspecified abdominal pain (5) Renal cyst: Code(s): N28.1 - Cyst of kidney, acquired Plan On the CT scan there is evidence of right indirect hernia inguinal. Referral to General surgery was made. The electrode is shifted down 2. vertebral intervals and now positioned around mid body of T10 vertebra while originally it was positioned top of T9. Alexandria, the [facility] , worked with the patient today trying to help his pain testing electrode position. He reports good coverage with his sciatica pain. I will see this patient after he is done with general surgery. He will give us a call and we will schedule an appointment. If he still complains on significant pain syndrome I will offer him pain pump. Patient Instructions: I here by testify that I spent 45 minutes discussing the patient's condition evaluating the images presented in the chart evaluating x-ray reports in the chart as well as planning his care, discussing his case with Nevro cordage sales representative and organizing his note. Coding Level of Care Code Est Pt Level 5 (33403) Diagnoses Petit triangle hernia K45.8 Other specified abdominal hernia without obstruction or gangrene K45.8 Myasthenia gravis G70.00 Abdominal pain R10.9 Renal cyst N28.1
[2023-08-28 08:33] VITALS: BP 134/90; PULSE 70; RESP 16; O2SAT 98; BMI 27.4
== END 2023-08-28 09:09 | disposition home or self-care (01) ==
PROVIDERS: PCP Internal Medicine; Visit Provider Anesthesiology
DX: K45.8 Other specified abdominal hernia without obstruction or gangrene (principal); G70.00 Myasthenia gravis without (acute) exacerbation; R10.9 Unspecified abdominal pain; N28.1 Cyst of kidney, acquired
CPT/HCPCS: 99215

== ENCOUNTER → 2023-08-28 08:21 | Outpatient (BNVA) | payer MEDICARE, MEDICAID, SELFPAY | PROVIDERS: PCP Internal Medicine; Visit Provider Anesthesiology | DX: K45.8 Other specified abdominal hernia without obstruction or gangrene (principal); G70.00 Myasthenia gravis without (acute) exacerbation; R10.9 Unspecified abdominal pain; N28.1 Cyst of kidney, acquired | CPT/HCPCS: 99212 ==

== ENCOUNTER 2023-09-12 08:23 | Outpatient (AMB) | payer MEDICARE, MEDICAID, SELFPAY ==
--- NOTE | 2023-09-12 08:29 | A.OFFVIS_ITS ---
Intake Vital Signs 09/12/23 08:30 Height 6 ft Weight 202 lb 6.15 oz BMI 27.4 BP 114/62 Blood Pressure Location Lt brachial Position Sitting Pulse 69 Pulse Source Pulse Oximeter Intake Visit Reasons: Follow Up Community Administrator: Community Administrator Present Accompanied by: Significant Other Allergies No Known Allergies [No Known Allergies*] Allergy (Verified 09/12/23 08:32) Medication List - Last Reconciled 09/12/23 by LANIE RolleC acetaminophen (Tylenol) 650 mg PO Q6H PRN aspirin (Enteric Coated Aspirin) 81 mg PO DAILY clotrimazole-betamethasone 1-0.05 % 1 appl topical DAILY PRN levothyroxine 50 mcg PO DAILY 30 days lisinopril 20 mg PO DAILY mirabegron ER 25 mg PO DAILY multivitamin 1 cap PO DAILY nitroglycerin 0.4 mg sublingual Q5M PRN omeprazole 20 mg PO DAILY prednisone 15 mg PO DAILY pyridostigmine bromide 60 mg PO TID rosuvastatin (Crestor) 5 mg PO DAILY Stiolto Respimat 2.5-2.5 mcg/actuation (tiotropium-olodaterol) 2 puffs PO DAILY NS Ventolin HFA 90 mcg/actuation (albuterol sulfate) 2 puffs inhalation Q4-6H PRN NS HPI Follow Up HPI Details Olegario is a 73 yo male with PMH of HTN, HLD, LVH, COPD, chronic reports of shortness of breath, syncope, nonobstructive coronary artery disease who presents for follow-up. Today he reports that he continues to have some shortness of breath with activity. He says his symptom is unchanged from prior reports. He denies any chest discomfort at rest or with activity. No palpitations, presyncope, syncope, falls. No PND, orthopnea or edema. He does report some muscle and joint discomfort. Currently having issues with his right shoulder. Following last visit his statin was changed to Crestor which he believes has made his muscles feel better. He tells me he had an admission for a myasthenia gravis exacerbation and was hospitalized for 6 days. His symptoms have since fully resolved. He is taking his medications as directed. 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) Back pain Arthritis Chronic pain syndrome Spondylosis of lumbosacral region Disc degeneration, lumbar Hyperglycemia Abdominal pain Pulmonary nodule Toe ulcer Iatrogenic adrenal insufficiency Multinodular thyroid Myasthenia gravis Scoliosis Spondylosis of lumbosacral spine with radiculopathy Degenerative disc disease, lumbar Leg cramps Emphysema of lung Iron deficiency anemia Osteoarthritis GERD (gastroesophageal reflux disease) JULIEN (dyspnea on exertion) Diastolic dysfunction Hypertension Surgical History History of carpal tunnel surgery of left wrist Hx of hand surgery History of carpal tunnel surgery History of left inguinal hernia repair S/P insertion of spinal cord stimulator History of colonoscopy History of lung surgery (~11/2020) History of total right hip arthroplasty (~02/2018) History of hydrocelectomy Hx of tonsillectomy Family History Father No problems noted. Mother No problems noted. Social History Household Members: Spouse Housing: House Are you a primary chronic care nurse to a significant other at home: No Do you presently have visiting nurse or other home services: No Alcohol intake: never Patient Tobacco Use Status: Never used Tobacco e-Cigarette/Vaping Use: Never Used Second Hand Smoke Exposure: No service: No Current occupational status: retired Current occupation: right handed Cognitive needs: No Hearing needs: No Vision needs: No Review of Systems Const All systems reviewed & are unremarkable except as noted in HPI and below ENT Denies dizziness Card Denies chest pain, Denies chest pain at rest, Denies chest pain with activity, Denies rapid heart rate, Denies pedal edema, Denies edema, Denies leg edema, Denies lightheadedness, Denies palpitations, Denies dyspnea, Reports dyspnea on exertion and Denies orthopnea Resp Denies cough, Denies dyspnea and Reports dyspnea on exertion GI Denies hematochezia and Denies change in stool character Musc Denies abnormal gait, Reports limited range of motion (shoulder), Denies muscle cramps, Denies muscle weakness, Denies numbness, Denies radiating pain into limb, Denies stiffness and Denies tingling Neuro Denies abnormal gait, Denies dizziness, Denies numbness and Denies tingling Endo Denies palpitations Physical Exam Vital Signs: Last Vital Signs Pulse 69 09/12/23 08:30 BP 114/62 09/12/23 08:30 BMI result Body Mass Index 27.4 Const General: cooperative, healthy appearing, comfortable and no acute distress Orientation/consciousness: patient oriented x3 Neck Neck: Yes normal visual inspection Resp Effort & Inspection: normal respiratory effort Auscultation: clear to auscultation bilaterally, no crackles, no rales, no rhonchi and no wheezes Cardio Jugular venous distension: no JVD Rate: regular rate Rhythm: regular rhythm Heart sounds: S1 normal heart sound present, S2 normal heart sound present, no murmurs and no rubs Neuro General: patient oriented x3 Extrem General: Yes normal to inspection Psych Appearance: grossly normal Mental Status: mental status grossly normal Speech and movement: Normal speech and movement present Assessment & Plan Assessment & Plan (1) JULIEN (dyspnea on exertion): Comment: Dyspnea on exertion is mild, as long as he does not climb stairs or walk up [place]. Code(s): R06.00 - Dyspnea, unspecified Plan: History of COPD. Reports of chronic shortness of breath with exertion. He was evaluated for any cardiac reason contributing to his shortness of breath. A pharmacological nuclear stress test was done 05/04/2021 showing no evidence of infarct or ischemia, EF mildly reduced. An echocardiogram done 03/23/2021 shows normal EF, moderate LVH, moderate dilated left atrium, normal valves. He continued to have symptoms and then underwent a CTA of the coronary arteries on 11/16/2022 which showed nonobstructive coronary artery disease, moderate proximal LAD stenosis 50-60%, mid LAD 25%, 1st OM less than 50%. This degree of coronary artery disease is not the cause of his shortness of breath. Most recent echo 950 %, moderate LVH, severe septal asymmetric hypertrophy he does not have any signs of heart failure/fluid overload. His blood pressure is well controlled. There is no mention of outflow obstruction with his septal hypertrophy. Not likely to be causing his shortness of breath symptom. He tells me he is active with his gardening. He may still have some deconditioning which can contribute. His shortness of breath symptom is most likely related to his COPD and deconditioning. Recommended he continue physical activity as tolerated. Signs and symptoms of angina reviewed. Cardiology follow-up in 6 months, sooner if needed (2) COPD (chronic obstructive pulmonary disease): Comment: He does have chronic obstructive pulmonary disease for past many years, it is staying very stable. TX: Stiolto 2 inhalation ONCE A DAY and albuterol HFA 2 puffs Q 4-6 hours only p.r.n.. Code(s): J44.9 - Chronic obstructive pulmonary disease, unspecified Plan: Follows with pulmonology (3) Hypertension: Code(s): I10 - Essential (primary) hypertension Plan: His echo shows moderate LVH, severe septal asymmetric hypertrophy. The importance of very good blood pressure control reviewed with him. Blood pressure good at present time. Will continue on current lisinopril. Labs done 07/21/2023 showed potassium 3.8, creatinine 0.86. (4) CAD (coronary artery disease): Code(s): I25.10 - Atherosclerotic heart disease of [place] coronary artery without angina pectoris Plan: CTA of the coronary arteries done early this year, details as above. Mild to at most moderate degree of CAD. No reports of anginal sounding symptoms. Diagnosis CAD reviewed with him. Continue management for stable CAD including aspirin, rosuvastatin with LDL goal less than 70. Continue lisinopril for blood pressure control. Emergency care if ever needed for any concerning symptoms. (5) LVH (left ventricular hypertrophy): Code(s): I51.7 - Cardiomegaly Plan: Moderate LVH on last echo (6) Asymmetric septal hypertrophy: Code(s): I42.2 - Other hypertrophic cardiomyopathy Plan: Severe asymmetric septal hypertrophy seen on last echo. No mention of outflow obstruction on echocardiogram. Blood pressure is well controlled. He has some shortness of breath which has been chronic. No signs of heart failure on exam. (7) Vasovagal episode: Code(s): R55 - Syncope and collapse Plan: Early this year he had a witnessed syncopal event. Patient jose quickly off the couch and then fell to the ground with brief loss of consciousness. ER evaluation without significant findings. Blood pressure mildly low. His isosorbide was stopped. He was continued on lisinopril. Today blood pressure 114/62. No recurrent events. Reviewed need for good hydration, rising slowly from sitting to standing position. Instructed to sit down if he feels lightheaded with standing. Medications: Refilled aspirin (Enteric Coated Aspirin) 81 mg PO DAILY 90 tabs 3RF Coding Level of Care Code Est Pt Level 4 (13003) Diagnoses JULIEN (dyspnea on exertion) R06.00 COPD (chronic obstructive pulmonary disease) J44.9 Hypertension I10 CAD (coronary artery disease) I25.10 LVH (left ventricular hypertrophy) I51.7 Asymmetric septal hypertrophy I42.2 Vasovagal episode R55 Time Spent (min) 28
[2023-09-12 08:30] VITALS: BP 114/62; PULSE 69; BMI 27.4
== END 2023-09-12 09:00 | disposition home or self-care (01) ==
LOC: HO.HCS 08:23
PROVIDERS: PCP Internal Medicine; Visit Provider Nurse Practitioner Family
DX: R06.00 Dyspnea, unspecified (principal); J44.9 Chronic obstructive pulmonary disease, unspecified; I10 Essential (primary) hypertension; I25.10 Atherosclerotic heart disease of native coronary artery without angina pectoris; I51.7 Cardiomegaly; I42.2 Other hypertrophic cardiomyopathy; R55 Syncope and collapse
CPT/HCPCS: 99214

== ENCOUNTER → 2023-09-12 08:23 | Outpatient (BNVA) | payer MEDICARE, MEDICAID, SELFPAY | PROVIDERS: PCP Internal Medicine; Visit Provider Nurse Practitioner Family | DX: Z01.818 Encounter for other preprocedural examination (principal); R06.00 Dyspnea, unspecified; J44.9 Chronic obstructive pulmonary disease, unspecified; I10 Essential (primary) hypertension; I25.10 Atherosclerotic heart disease of native coronary artery without angina pectoris; I51.7 Cardiomegaly; I42.2 Other hypertrophic cardiomyopathy; R55 Syncope and collapse | CPT/HCPCS: 99212 ==

== ENCOUNTER 2023-09-14 10:10 | Outpatient (AMB) | payer MEDICARE, MEDICAID, SELFPAY ==
[2023-09-14 10:14] VITALS: BMI 28.2
--- NOTE | 2023-09-14 10:14 | A.OFFVIS_ITS ---
Intake Vital Signs 09/14/23 10:14 Height 6 ft Weight 208 lb BMI 28.2 Intake Visit Reasons: unilateral inguinal hernia Intake Note: This patient presents for an assessment for right inguinal hernia. Patient c/o; reports occasional bilateral groin pain more on the right. Buildings And Grounds Director Required: No Accompanied by: Other Relationship Allergies No Known Allergies [No Known Allergies*] Allergy (Verified 09/14/23 10:21) Medication List - Last Reconciled 09/14/23 by Ludwin Romero MD acetaminophen (Tylenol) 650 mg PO Q6H PRN aspirin (Enteric Coated Aspirin) 81 mg PO DAILY clotrimazole-betamethasone 1-0.05 % 1 appl topical DAILY PRN levothyroxine 50 mcg PO DAILY 30 days lisinopril 20 mg PO DAILY mirabegron ER 25 mg PO DAILY multivitamin 1 cap PO DAILY nitroglycerin 0.4 mg sublingual Q5M PRN omeprazole 20 mg PO DAILY prednisone 15 mg PO DAILY pyridostigmine bromide 60 mg PO TID rosuvastatin (Crestor) 5 mg PO DAILY Stiolto Respimat 2.5-2.5 mcg/actuation (tiotropium-olodaterol) 2 puffs PO DAILY NS Ventolin HFA 90 mcg/actuation (albuterol sulfate) 2 puffs inhalation Q4-6H PRN NS HPI unilateral inguinal hernia HPI Details 71-year-old male referred for a right in guinal hernia. He describes having pain on the right groin on and off for several months now. He really does not notice an obvious mass He had a CAT scan ordered by his pain management physician recently and this showed a right inguinal hernia containing fat. Review of his previous CT scans also showed this hernia. He has a history of a repair of a left inguinal hernia in the past. He also has a history of coronary disease and left ventricular hypertrophy and is being followed by [facility]. He says he was just seen yesterday by the cardiology service. [facility] Medical History (Updated 09/14/23 @ 10:31 by Ludwin Romero MD) Right inguinal hernia Hyperlipidemia COPD (chronic obstructive pulmonary disease) Hypothyroid Shoulder pain, right Bladder instability Syncope Chronic dyspnea Bifascicular block Nocturia more than twice per night JULIEN (dyspnea on exertion) Incomplete emptying of bladder due to benign prostatic hyperplasia Nocturia associated with benign prostatic hyperplasia BPH loc w urin obs/LUTS Allergic rhinitis Left inguinal pain Elevated troponin Syncope Preop cardiovascular exam Vasovagal episode Left inguinal hernia 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) Back pain Arthritis Chronic pain syndrome Spondylosis of lumbosacral region Disc degeneration, lumbar Hyperglycemia Abdominal pain Pulmonary nodule Toe ulcer Iatrogenic adrenal insufficiency Multinodular thyroid Myasthenia gravis Scoliosis Spondylosis of lumbosacral spine with radiculopathy Degenerative disc disease, lumbar Leg cramps Emphysema of lung Iron deficiency anemia Osteoarthritis GERD (gastroesophageal reflux disease) JULIEN (dyspnea on exertion) Diastolic dysfunction Hypertension Surgical History History of carpal tunnel surgery of left wrist Hx of hand surgery History of carpal tunnel surgery History of left inguinal hernia repair S/P insertion of spinal cord stimulator History of colonoscopy History of lung surgery (~11/2020) History of total right hip arthroplasty (~02/2018) History of hydrocelectomy Hx of tonsillectomy Family History Father No problems noted. Mother No problems noted. Household Members: Spouse Housing: House Are you a primary emergency care tech to a significant other at home: No Do you presently have visiting nurse or other home services: No Alcohol intake: never Patient Tobacco Use Status: Never used Tobacco e-Cigarette/Vaping Use: Never Used Second Hand Smoke Exposure: No service: No Current occupational status: retired Current occupation: right handed Cognitive needs: No Hearing needs: No Vision needs: No Review of Systems Const Denies chills and Denies fever(s) Card Denies chest pain, Denies dyspnea and Reports dyspnea on exertion Resp Denies cough, Denies dyspnea and Reports dyspnea on exertion GI Denies hematochezia and Denies change in bowel habits Denies hematuria, Denies difficulty urinating and Reports urinary frequency Musc Reports back pain and Denies limited range of motion Neuro Denies focal weakness and Denies convulsions Psych Denies depression and Denies mood swings Physical Exam Vital Signs: BMI result Body Mass Index 28.2 Const Other: walks with a cane General: comfortable and no acute distress Orientation/consciousness: patient oriented x3 Neck Neck: Yes no lymphadenopathy Resp Auscultation: clear to auscultation bilaterally Cardio Rhythm: regular rhythm GI Other: Right inguinal hernia, obvious with Valsalva, with some tenderness Palpation (GI): Soft to palpation, nontender and no guarding Neuro General: patient oriented x3 Assessment & Plan Assessment & Plan (1) Right inguinal hernia: Code(s): K40.90 - Unilateral inguinal hernia, without obstruction or gangrene, not specified as recurrent Plan: He has a right inguinal hernia and complains of discomfort on the area. This contains fat on CT scan. I explained to him the technique of repair of the inguinal hernia with mesh. I reviewed risks including but not limited to bleeding, infections, injury to the bowel, vas deferens, testicle, recurrence, chronic postop pain, as well as the benefits and alternatives. I also reviewed with him what to expect postoperatively. He understands and wants to proceed. I reviewed with him what to expect postoperatively. We will have him cleared by his cable repairer as well prior to the surgery. He will also be seen by the preadmission testing nurse. Coding Level of Care Code New Pt Level 4 (38446) Diagnoses Right inguinal hernia K40.90
== END 2023-09-14 10:32 | disposition home or self-care (01) ==
PROVIDERS: PCP Internal Medicine; Referring Provider Anesthesiology; Visit Provider Surgery
DX: K40.90 Unilateral inguinal hernia, without obstruction or gangrene, not specified as recurrent (principal)
CPT/HCPCS: 99214

== ENCOUNTER → 2023-09-14 10:10 | Outpatient (BNVA) | payer MEDICARE, MEDICAID, SELFPAY | PROVIDERS: PCP Internal Medicine; Referring Provider Anesthesiology; Visit Provider Surgery | DX: K40.90 Unilateral inguinal hernia, without obstruction or gangrene, not specified as recurrent (principal) | CPT/HCPCS: 99212 ==

== ENCOUNTER 2023-10-23 13:12 | Outpatient (AMB) | payer MEDICARE, MEDICAID, SELFPAY ==
--- NOTE | 2023-10-23 13:13 | MHC.OFFVIS ---
Intake Intake Visit Reasons: left inguinal pain, surgery 10/31/23 [facility] Intake Note: This patient presents for an assessment for left inguinal pain, surgery 10/31/23 for [facility]. Patient c/o; reports left groin pain last several days. 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 Accompanied by: Self / Same As Patient Allergies No Known Allergies [No Known Allergies*] Allergy (Verified 10/23/23 13:18) Medication List - Last Reconciled 10/23/23 by Ludwin Romero MD acetaminophen (Tylenol) 650 mg PO Q6H PRN aspirin (Enteric Coated Aspirin) 81 mg PO DAILY clotrimazole-betamethasone 1-0.05 % 1 appl topical DAILY PRN levothyroxine 50 mcg PO DAILY lisinopril 20 mg PO DAILY multivitamin 1 cap PO DAILY nitroglycerin 0.4 mg sublingual Q5M PRN omeprazole 20 mg PO DAILY prednisone 10 mg PO DAILY pyridostigmine bromide 60 mg PO TID rosuvastatin (Crestor) 5 mg PO DAILY Stiolto Respimat 2.5-2.5 mcg/actuation (tiotropium-olodaterol) 2 puffs PO DAILY NS Ventolin HFA 90 mcg/actuation (albuterol sulfate) 2 puffs inhalation Q4-6H PRN NS HPI left inguinal pain, surgery 10/31/23 [facility] HPI Details He is scheduled to have right inguinal repair next week. He has had occasional sharp mild pain on the groin and lower quadrant the past few days any wanted this checked. He denies any palpable mass. He denies GI complaints. 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) Back pain Arthritis JULIEN (dyspnea on exertion) Chronic pain syndrome Disc degeneration, lumbar Hyperglycemia Abdominal pain Pulmonary nodule Hyperlipidemia Toe ulcer Iatrogenic adrenal insufficiency Multinodular thyroid COPD (chronic obstructive pulmonary disease) Myasthenia gravis Scoliosis Spondylosis of lumbosacral spine with radiculopathy Degenerative disc disease, lumbar Hypothyroid Leg cramps Emphysema of lung Iron deficiency anemia Osteoarthritis Diastolic dysfunction Hypertension Incomplete emptying of bladder due to benign prostatic hyperplasia Nocturia associated with benign prostatic hyperplasia BPH loc w urin obs/LUTS Surgical History History of carpal tunnel surgery Hx of hand surgery History of left inguinal hernia repair S/P insertion of spinal cord stimulator History of colonoscopy History of lung surgery (~11/2020) History of total right hip arthroplasty (~02/2018) History of hydrocelectomy Hx of tonsillectomy Family History Father No problems noted. Mother No problems noted. Social History Household Members: Spouse Household Members Other:: spouse has dementia Housing: House Are you a primary child care director to a significant other at home: Yes (-has dementia) Do you presently have visiting nurse or other home services: No Alcohol intake: never Comment: HX MYASTHENIA GRAVIS, RISK TRIP FELL A MONTH AGO Patient Tobacco Use Status: Never used Tobacco e-Cigarette/Vaping Use: Never Used Second Hand Smoke Exposure: No service: No Current occupational status: retired Current occupation: right handed Cognitive needs: No Hearing needs: No Vision needs: No Review of Systems Const Denies chills and Denies fever(s) Card Denies chest pain, Denies dyspnea and Reports dyspnea on exertion Resp Denies cough, Denies dyspnea and Reports dyspnea on exertion GI Denies hematochezia and Denies change in bowel habits Denies hematuria and Denies difficulty urinating Musc Reports abnormal gait, Reports back pain, Reports myalgias, Reports arthralgias and Reports limited range of motion Neuro Reports abnormal gait, Denies focal weakness and Denies convulsions Psych Denies depression and Denies mood swings Physical Exam Const Other: Walks with a cane General: comfortable and no acute distress Resp Effort & Inspection: normal respiratory effort GI Other: Small right inguinal hernia on Valsalva, no palpable mass on the left groin, no hernia on this side, no skin changes Assessment & Plan Assessment & Plan (1) Left groin pain: Code(s): R10.32 - Left lower quadrant pain Plan: He describes occasional sharp pains on the left groin area. He wanted the old hernia repair site checked before going ahead with surgery for the right inguinal hernia next week. Current exam does not reveal any palpable mass or any suggestion of a recurrent hernia. He has had repair of a hernia on the left groin in the past so his pain may be secondary to scarring in the area or postop changes We will proceed with repair of the right inguinal hernia next week. He understands the plan and is comfortable with this. Coding Level of Care Code Est Pt Level 3 (02681) Diagnoses Left groin pain R10.32
== END 2023-10-23 13:29 | disposition home or self-care (01) ==
PROVIDERS: PCP Internal Medicine; Visit Provider Surgery
DX: R10.32 Left lower quadrant pain (principal)
CPT/HCPCS: 99213

== ENCOUNTER → 2023-10-23 13:12 | Outpatient (BNVA) | payer MEDICARE, MEDICAID, SELFPAY | PROVIDERS: PCP Internal Medicine; Visit Provider Surgery | DX: R10.32 Left lower quadrant pain (principal) | CPT/HCPCS: 99212 ==

== ENCOUNTER 2023-10-31 05:48 | Day surgery (SDC) | payer MEDICARE, MEDICAID, SELFPAY ==
[2023-10-23 12:17] VITALS: BMI 27.4
[2023-10-23 12:23] VITALS: BP 125/60; PULSE 65; RESP 20; O2SAT 97
--- NOTE | 2023-10-23 12:28 | P.CONAN_ITS ---
Documented by User: Alexandria Cox NP 10/23/23 13:03 HPI - Anesthesia Eval Consult details Narrative: 73yo M for OPEN Hernia Repair Inguinal with mesh Cardiac optimized Follows [facility] pulmo - Last office visit 06/2023: COPD stable, c/o PND [facility] admit for exac of MG. Resolved with IVIG x 5 days. No recent illness No CP. JULIEN at baseline. Pt attributes to COPD. No need for ventolin for years. 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 Myesthenia dx'd 2019 - prednisone 10mg daily, pyridostigmine 60mg TID COPD - stable [facility] Active Problems Active Problems: All Active Problems (Updated 10/23/23 @ 12:11 by Emely Frankel RN) Asymmetric septal hypertrophy (Acute) LVH (left ventricular hypertrophy) (Acute) CAD (coronary artery disease) (Acute) Inguinal hernia (Acute) Skin lesion (Acute) Other specified abdominal hernia without obstruction or gangrene (Acute) Petit triangle hernia (Acute) Arthritis of right glenohumeral joint (Acute) Rotator cuff arthropathy of right shoulder (Acute) Trigger finger, right little finger (Acute) Left groin pain (Acute) Trigger finger of left thumb (Acute) History of carpal tunnel surgery of left wrist (Acute) Carpal tunnel syndrome of left wrist (Acute) History of carpal tunnel surgery of right wrist (Acute) Annual physical exam (Acute) Greater trochanteric bursitis of left hip (Acute) Overactive bladder (Acute) Carpal tunnel syndrome of right wrist (Acute) Renal cyst (Acute) Preop cardiovascular exam (Acute) Bifascicular block (Acute) Right inguinal hernia (Acute) Hyperlipidemia (Acute) Hypothyroid (Acute) COPD (chronic obstructive pulmonary disease) (Acute) Vasovagal episode (Acute) Left inguinal hernia (Acute) Hyperglycemia (Acute) Abdominal pain (Acute) Myasthenia gravis (Acute) Toe ulcer (Acute) Iatrogenic adrenal insufficiency (Acute) Past Medical History Medical History GERD (gastroesophageal reflux disease) Right inguinal hernia Allergic rhinitis Shoulder pain, right Bladder instability Syncope Chronic dyspnea Bifascicular block Elevated troponin Preop cardiovascular exam Vasovagal episode Left inguinal hernia 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) Back pain Arthritis JULIEN (dyspnea on exertion) Chronic pain syndrome Disc degeneration, lumbar Hyperglycemia Abdominal pain Pulmonary nodule Hyperlipidemia Toe ulcer Iatrogenic adrenal insufficiency Multinodular thyroid COPD (chronic obstructive pulmonary disease) Myasthenia gravis Scoliosis Spondylosis of lumbosacral spine with radiculopathy Degenerative disc disease, lumbar Hypothyroid Leg cramps Emphysema of lung Iron deficiency anemia Osteoarthritis Diastolic dysfunction Hypertension Incomplete emptying of bladder due to benign prostatic hyperplasia Nocturia associated with benign prostatic hyperplasia BPH loc w urin obs/LUTS Family History Family History Father No problems noted. Mother No problems noted. Family history of problems with anesthesia: No Surgical History Surgical History History of carpal tunnel surgery Hx of hand surgery History of left inguinal hernia repair S/P insertion of spinal cord stimulator History of colonoscopy History of lung surgery (~11/2020) History of total right hip arthroplasty (~02/2018) History of hydrocelectomy Hx of tonsillectomy History of Problems with Anesthesia: No Social History Social History Household Members: Spouse Household Members Other:: spouse has dementia Housing: House Are you a primary critical care technician to a significant other at home: Yes (-has dementia) Do you presently have visiting nurse or other home services: No Alcohol intake: never Comment: HX MYASTHENIA GRAVIS, RISK TRIP FELL A MONTH AGO Patient Tobacco Use Status: Never used Tobacco e-Cigarette/Vaping Use: Never Used Second Hand Smoke Exposure: No Use of substances other than those prescribed or required for medical reasons: No Have you been hit, kicked, punched, or otherwise hurt by someone within the past year? If so, by whom?: No Are you DNR?: No Advance Directives Information Provided: Yes (as above noted) Advance Directives on File: No Recently lost weight without trying: No Eating poorly because of decreased appetite: No Nutrition Risks: No Nutritional Risk Poor oral hygiene: No service: No Current occupational status: retired Current occupation: right handed Cognitive needs: No Hearing needs: No Vision needs: No Meds Allergies Allergy/AdvReac Type Severity Reaction Status Date / Time No Known Allergies Allergy Verified 10/31/23 06:12 [No Known Allergies*] Home Medications Medication Instructions Recorded Confirmed Last Taken Type clotrimazole-betamethasone 1 1 applic topical DAILY PRN Rash 08/18/20 10/23/23 Unknown History %-0.05 % topical cream acetaminophen 325 mg tablet 650 mg PO Q6H PRN Pain 08/28/20 10/23/23 10/04/22 History (Tylenol) multivitamin 1 cap PO DAILY 08/28/20 10/23/23 07/17/23 History pyridostigmine bromide 60 mg tablet 60 mg PO TID 01/27/21 10/23/23 10/31/23 05:15 History prednisone 5 mg tablet 10 mg PO DAILY 08/09/23 10/23/23 10/31/23 05:15 History Exam Height,Weight and Vital Signs: Height 6 ft Weight 91.626 kg Last Vital Signs Pulse 65 10/23/23 12:23 Resp 20 10/23/23 12:23 BP 125/60 10/23/23 12:23 Pulse Ox 97 10/23/23 12:23 O2 Del Method Room Air 10/23/23 12:23 Pertinent Lab Results Pertinent Lab Results: Laboratory Tests 07/21/23 05:33 WBC 9.8 Hgb 13.7 L Hct 42.9 Plt Count 196 Sodium 137 Potassium 3.8 Chloride 105 Carbon Dioxide 27 BUN 18 H Creatinine 0.86 Narrative Narrative: EKG 07/2023 Vent. Rate : 061 BPM Atrial Rate : 061 BPM P-R Int : 214 ms QRS Dur : 142 ms QT Int : 468 ms P-R-T Axes : 025 120 -44 degrees QTc Int : 471 ms Sinus rhythm with 1st degree A-V block Non-specific intra-ventricular conduction block T wave abnormality, consider inferior ischemia Abnormal ECG When compared with ECG of 05-OCT-2022 16:56, No significant change was found ECHO 07/2023 Conclusions: - The left ventricular systolic function is normal. The calculated ejection fraction is 57% by biplane method. - There is moderately increased left ventricular wall thickness. - There is severe septal asymmetric hypertrophy. - Evidence suggests grade II (moderate) diastolic dysfunction. - There is mild calcification of the aortic valve. - There is mild mitral annular calcification. Spirometry, in office, 06/2023 Mild obstructive disorder with slight improvement from 2018. Report on chart. Airway Mallampati Class: III TM Dist: >3cm Neck ROM: Full (Right shoulder pain) Heart: RRR Lungs: CTAB Assessment and Plan Assessment Anesthesia Assessment: Anesthesia Plan Discussed and PAT Visit Final Anesthetic Review Family History of Problems with Anesthesia: No History of Problems with Anesthesia: No Documented by User: Anil Barber MD 10/31/23 08:05 [facility] Past Medical History Medical History GERD (gastroesophageal reflux disease) Right inguinal hernia Allergic rhinitis Shoulder pain, right Bladder instability Syncope Chronic dyspnea Bifascicular block Elevated troponin Preop cardiovascular exam Vasovagal episode Left inguinal hernia 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) Back pain Arthritis JULIEN (dyspnea on exertion) Chronic pain syndrome Disc degeneration, lumbar Hyperglycemia Abdominal pain Pulmonary nodule Hyperlipidemia Toe ulcer Iatrogenic adrenal insufficiency Multinodular thyroid COPD (chronic obstructive pulmonary disease) Myasthenia gravis Scoliosis Spondylosis of lumbosacral spine with radiculopathy Degenerative disc disease, lumbar Hypothyroid Leg cramps Emphysema of lung Iron deficiency anemia Osteoarthritis Diastolic dysfunction Hypertension Incomplete emptying of bladder due to benign prostatic hyperplasia Nocturia associated with benign prostatic hyperplasia BPH loc w urin obs/LUTS Narrative: Had surgery w GA a year ago w no problem. Back to baseline after his MG crisis this past July. Good qualitative FVC on my testing at the bedside. Family History Family History Father No problems noted. Mother No problems noted. Surgical History Surgical History History of carpal tunnel surgery Hx of hand surgery History of left inguinal hernia repair S/P insertion of spinal cord stimulator History of colonoscopy History of lung surgery (~11/2020) History of total right hip arthroplasty (~02/2018) History of hydrocelectomy Hx of tonsillectomy Social History Social History Household Members: Spouse Household Members Other:: spouse has dementia Housing: House Are you a primary critical care technician to a significant other at home: Yes (-has dementia) Do you presently have visiting nurse or other home services: No Alcohol intake: never Comment: HX MYASTHENIA GRAVIS, RISK TRIP FELL A MONTH AGO Patient Tobacco Use Status: Never used Tobacco e-Cigarette/Vaping Use: Never Used Second Hand Smoke Exposure: No Use of substances other than those prescribed or required for medical reasons: No Have you been hit, kicked, punched, or otherwise hurt by someone within the past year? If so, by whom?: No Are you DNR?: No Advance Directives Information Provided: Yes (as above noted) Advance Directives on File: No Recently lost weight without trying: No Eating poorly because of decreased appetite: No Nutrition Risks: No Nutritional Risk Poor oral hygiene: No service: No Current occupational status: retired Current occupation: right handed Cognitive needs: No Hearing needs: No Vision needs: No Meds Allergies Allergy/AdvReac Type Severity Reaction Status Date / Time No Known Allergies Allergy Verified 10/31/23 06:12 [No Known Allergies*] Home Medications Medication Instructions Recorded Confirmed Last Taken Type clotrimazole-betamethasone 1 1 applic topical DAILY PRN Rash 08/18/20 10/23/23 Unknown History %-0.05 % topical cream acetaminophen 325 mg tablet 650 mg PO Q6H PRN Pain 08/28/20 10/23/23 10/04/22 History (Tylenol) multivitamin 1 cap PO DAILY 08/28/20 10/23/23 07/17/23 History pyridostigmine bromide 60 mg tablet 60 mg PO TID 01/27/21 10/23/23 10/31/23 05:15 History prednisone 5 mg tablet 10 mg PO DAILY 08/09/23 10/23/23 10/31/23 05:15 History Exam Airway Mallampati Class: II Loose/Missing/Broken Teeth: No Assessment and Plan Assessment Anesthesia Assessment: Chart Reviewed Final Anesthetic Review NPO: Yes ASA Class: III Final Preanesthetic Review: No Changes in Pt Med Stat, Meds/Allgs Chart Reviewed, Consent Obtained/Reviewed and Anes Risks/Benef Reviewed Patient Risk: Intermediate Procedure Risk: Low Anesthetic Plan Anesthetic Plan: GA and Agree w/ Assess. and Plan Disposition: Standard PACU
[2023-10-31] VITALS (11 sets, daily range): BP systolic 105–131; BP diastolic 53–78; PULSE 53–62; RESP 16; TEMP 36.7–36.8; O2SAT 96–98; BMI 29.5
[2023-10-31] MEDS: Lactated Ringers 1,000 ML 50 ML IVCONT (07:20)
--- NOTE | 2023-10-31 07:21 | P.HPSUR_ITS ---
Pre-Procedural Eval Section A Date of Service: 10/31/23 Section B Chief Complaint: Unilateral inguinal hernia, without obstruction Details of Present Illness: Reducible mass on the right groin, with CAT scan showing a fat containing hernia Relevant Family History (Specify if Yes): No Relevant Social History: None Present Medications: see Short Stay Collaborative assessment (Coronary artery disease, arthritis, COPD, hyperlipidemia) Allergies: Allergies Allergy/AdvReac Type Severity Reaction Status Date / Time No Known Allergies Allergy Verified 10/31/23 06:12 [No Known Allergies*] Review of Systems Sugical H&P ROS: Negative: Constitution, Cardiovascular, Respiratory, Ne urological, Psychiatric, Hem-Onc, Allergic/Immunologic, Gastrointestinal, Genitourinary, Musculoskeletal, Integumentary, Endocrine and Eyes/Ears/Nose/Throat Exam Surgical H&P Exam: Normal: HEENT, Normal: Heart, Normal: Lungs, Normal: Extremities, Normal: Skin and Normal: Neurological and Significant Findings: Abdomen (Right inguinal hernia on Valsalva) Plan Diagnosis/Plan: Unchanged I have reviewed the history and physical and performed a pertinent physical examination on my patient. No changes have occurred unless specified. Time Spent With Patient Time: Total time managing care of this patient today ____ minutes.
--- NOTE | 2023-10-31 08:19 | P.OP_ITS ---
Operative Note Operative Note Date of Service: 10/31/23 Narrative: Preop diagnosis: Right inguinal hernia Postop diagnosis: Right inguinal hernia, indirect Procedure: Repair of a right inguinal hernia with mesh Surgeon: Ludwin Romero MD The patient is a 73-year-old male, with a right inguinal hernia containing fat. He understood the technique of repair with mesh. He was aware of the risks, benefits, and alternatives. He was brought to the operating room. Was placed supine under general anesthesia via laryngeal mask airway. The right groin was prepped and draped in the usual sterile fashion. A surgical time-out was done. The patient received cefazolin 2 g IV preoperatively . I infiltrated the planned line of incision with lidocaine 1%. I made a short incision along an imaginary line from the anterior superior iliac spine to the pubic ramus using a blade 15. This was carried down through the full-thickness of the skin and subcutaneous fat with electrocautery. I visualized the external oblique aponeurosis. I bluntly dissected this with a gauze to expose the external ring. I then made an incision on the external oblique aponeurosis using a blade 15 and extended this inferomedially to connect with the external ring. The inguinal canal was therefore entered I bluntly dissected the spermatic cord and its contents with an index finger until was able to pass a Marielena drain around this. This Marielena drain was used for retraction. I identified the vas deferens and its accompanying vessels. I was able to visualized the fat containing hernia. I this gently from the rest of the cord contents until I was able to reduce this thr ough the internal ring. This was therefore an indirect hernia. I reinforced internal ring with a small-sized Prolene plug. The plug was secured with Prolene 2 sutures to the shelving edge of the inguinal laterally and the internal oblique superiorly and medially using the inner leaves of the block.. I then used a keyhole mesh to reinforce the entire floor. The tails of the mesh were passed around the cord at the level of the internal ring. I secured these together with Prolene 2 sutures. I then secured the mesh to the shelving edge of the inguinal ligament laterally and the internal oblique superiorly and medially as well as the pubic ramus inferomedially with Prolene 2-0 sutures . I observed for hemostasis. I then irrigated. Once hemostasis was confirmed, I closed the external oblique aponeurosis with a running Polysorb 2-0 stitch to re-create the external ring. The subcutaneous layer was reapposed with Polysorb 3-0 interrupted sutures. Skin closure was achieved with Polysorb 4-0 subcuticular running stitch. The area was then infiltrated with Marcaine 0.5% for postop analgesia. Dressings were applied. The procedure was completed . The patient tolerated procedure well. There were no immediate complications. Initial and final counts of sponges and instruments were correct. Estimated blood loss was 10 cc. The patient was extubated without difficulty and transferred to the recovery room with stable vital signs.
[2023-10-31] MEDS: oxyCODONE HCl Immed Release 5 MG TABLET PO (08:44)
[2023-10-31] MEDS: Acetaminophen 325 MG TABLET 650 MG PO (09:04)
[2023-10-31] MEDS: fentaNYL citrate/PF 100 MCG/2 ML VIAL 50 MCG IVPUSH ×2 (09:08→09:23)
== END 2023-10-31 12:28 | disposition home or self-care (01) ==
PROVIDERS: PCP Internal Medicine; Visit Provider Surgery
PROC: (CPT 49505; principal; 2023-10-31 07:30)
DX: K40.90 Unilateral inguinal hernia, without obstruction or gangrene, not specified as recurrent (principal); K21.9 Gastro-esophageal reflux disease without esophagitis; J44.9 Chronic obstructive pulmonary disease, unspecified; E78.5 Hyperlipidemia, unspecified; I45.10 Unspecified right bundle-branch block; G89.4 Chronic pain syndrome; N40.1 Benign prostatic hyperplasia with lower urinary tract symptoms; R39.14 Feeling of incomplete bladder emptying; R35.1 Nocturia; Z79.82 Long term (current) use of aspirin; Z79.899 Other long term (current) drug therapy; Z79.52 Long term (current) use of systemic steroids; Z98.890 Other specified postprocedural states
CPT/HCPCS: 49505; C1781; J0690; J1885; J2704; J2795; J3010

== ENCOUNTER → 2023-10-31 05:48 | Outpatient (BNV) | payer MEDICARE, MEDICAID, SELFPAY | PROVIDERS: PCP Internal Medicine; Visit Provider Surgery | DX: K40.90 Unilateral inguinal hernia, without obstruction or gangrene, not specified as recurrent (principal) | CPT/HCPCS: 49505 ==

== ENCOUNTER 2023-11-13 10:32 | Outpatient (AMB) | payer MEDICARE, MEDICAID, SELFPAY ==
[2023-11-13 10:43] VITALS: BP 128/72; PULSE 68
--- NOTE | 2023-11-13 10:43 | ...WebTmpl.AM.BPCHK ---
Intake Intake Visit Reasons: S/P RIH w/mesh Allergies No Known Allergies [No Known Allergies*] Allergy (Verified 10/31/23 06:12) Vital Signs 11/13/23 10:43 Weight 213 lb BP 128/72 Blood Pressure Location Rt brachial Position Sitting Pulse 68 Coding
--- NOTE | 2023-11-13 10:43 | MHC.OFFVIS ---
Intake Vital Signs 11/13/23 10:43 Weight 213 lb BP 128/72 Blood Pressure Location Rt brachial Position Sitting Pulse 68 Intake Visit Reasons: S/P RIH w/mesh Intake Note: This patient presents for a post-op assessment status post right inguinal hernia repair with mesh. (10/31/23) Patient c/o; reports pain. 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 He tolerated procedure well. He says he is doing well right now. He denies any significant pain or other discomfort. 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) Back pain Arthritis JULIEN (dyspnea on exertion) Chronic pain syndrome Disc degeneration, lumbar Hyperglycemia Abdominal pain Pulmonary nodule Hyperlipidemia Toe ulcer Iatrogenic adrenal insufficiency Multinodular thyroid COPD (chronic obstructive pulmonary disease) Myasthenia gravis Scoliosis Spondylosis of lumbosacral spine with radiculopathy Degenerative disc disease, lumbar Hypothyroid Leg cramps Emphysema of lung Iron deficiency anemia Osteoarthritis Diastolic dysfunction Hypertension Incomplete emptying of bladder due to benign prostatic hyperplasia Nocturia associated with benign prostatic hyperplasia BPH loc w urin obs/LUTS Surgical History History of right inguinal hernia repair (~10/31/23) History of carpal tunnel surgery Hx of hand surgery History of left inguinal hernia repair S/P insertion of spinal cord stimulator History of colonoscopy History of lung surgery (~11/2020) History of total right hip arthroplasty (~02/2018) History of hydrocelectomy Hx of tonsillectomy Family History Father No problems noted. Mother No problems noted. Social History Household Members: Spouse Household Members Other:: spouse has dementia Housing: House Are you a primary childcare attendant to a significant other at home: Yes (-has dementia) Do you presently have visiting nurse or other home services: No Alcohol intake: never Patient Tobacco Use Status: Never used Tobacco e-Cigarette/Vaping Use: Never Used Second Hand Smoke Exposure: No service: No Current occupational status: retired Current occupation: right handed Cognitive needs: No Hearing needs: No Vision needs: No Review of Systems Const Denies chills and Denies fever(s) Card Denies chest pain Resp Denies cough Physical Exam Vital Signs: Last Vital Signs Pulse 68 11/13/23 10:43 BP 128/72 11/13/23 10:43 Const General: comfortable and no acute distress Resp Effort & Inspection: normal respiratory effort GI Other: Right inguinal hernia repair site is well healed, not infected, repair site is intact Assessment & Plan Assessment & Plan (1) Inguinal hernia: Code(s): K40.90 - Unilateral inguinal hernia, without obstruction or gangrene, not specified as recurrent Plan: Status post repair of a right inguinal hernia with mesh. He is doing very well. The incision is well healed. The repair site is intact. I advised him to avoid any lifting more than 20 lb for a full month after the surgery. He can otherwise follow up with me on a p.r.n. basis. Coding Level of Care Code Global (55562) Diagnoses Inguinal hernia K40.90
== END 2023-11-13 11:09 | disposition home or self-care (01) ==
PROVIDERS: PCP Internal Medicine; Visit Provider Surgery
DX: K40.90 Unilateral inguinal hernia, without obstruction or gangrene, not specified as recurrent (principal)
CPT/HCPCS: 99024

== ENCOUNTER → 2023-11-13 10:36 | Outpatient (BNVA) | payer MEDICARE, MEDICAID, SELFPAY | PROVIDERS: PCP Internal Medicine; Visit Provider Surgery | DX: Z48.815 Encounter for surgical aftercare following surgery on the digestive system (principal); Z98.890 Other specified postprocedural states | CPT/HCPCS: 99212 ==

== ENCOUNTER 2023-11-28 09:50 | Outpatient (AMB) | payer MEDICARE, MEDICAID, SELFPAY ==
--- NOTE | 2023-11-28 09:51 | A.OFFVIS_ITS ---
Intake Intake Visit Reasons: 6M PVR/Med Review(Myrbetriq)(set confirmed) Intake Note: Patient presents today for a follow up: PVR and medication review Blood thinners: none Allergies to antibiotics: none PVR: 0 Patient stated he has not been taking Myrbetriq. [employer] Operator Required: No Accompanied by: Significant Other Allergies No Known Allergies [No Known Allergies*] Allergy (Verified 12/07/23 10:10) HPI HPI Comments History of Present Illness Details Olegario is a very pleasant male. He is a patient of Dr. Suazo. He is seen for the following urologic conditions - lower urinary tract symptoms - renal cyst Discussed possible InterStim Has stimulator for sciatica Would like to review in 6 months Is relatively stable currently Overactive bladder Cystoscopy 02/25 trabeculation with reduced stability open bladder neck Failed trial of tolterodine and oxybutynin, toviaz secondary to dry mouth and dry eyes Nocturia stabilized with imipramine over still getting up 5 times at night Effective response to meds Lower urinary tract symptoms Current encounter for the follow-up of lower urinary tract symptoms - good response with finasteride daily f or effective stream and emptying Current treatment includes medication - none Prostate Symptom Score 8/18 , Moderate (9-19), Bother 3. Symptoms include 8/18 , incomplete emptying, weak stream, nocturia (>2), and are progressing. Results from testing include cystoscopy high riding bladder neck (median bar) 07/24, 01/25 median bar with mild trabeculation renal/bladder us Yes date 07/04/2018 PVR 35 prostate size 45 PSA 02/22 1.2, 11/26 0.5 Prostate volume 30-50gm. 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) Back pain Arthritis JULIEN (dyspnea on exertion) Disc degeneration, lumbar Hyperglycemia Abdominal pain Pulmonary nodule Hyperlipidemia Toe ulcer Iatrogenic adrenal insufficiency Multinodular thyroid COPD (chronic obstructive pulmonary disease) Myasthenia gravis Scoliosis Spondylosis of lumbosacral spine with radiculopathy Degenerative disc disease, lumbar Hypothyroid Leg cramps Emphysema of lung Iron deficiency anemia Osteoarthritis Diastolic dysfunction Hypertension Incomplete emptying of bladder due to benign prostatic hyperplasia Nocturia associated with benign prostatic hyperplasia BPH loc w urin obs/LUTS Surgical History History of right inguinal hernia repair (~10/31/23) History of carpal tunnel surgery Hx of hand surgery History of left inguinal hernia repair S/P insertion of spinal cord stimulator History of colonoscopy History of lung surgery (~11/2020) History of total right hip arthroplasty (~02/2018) History of hydrocelectomy Hx of tonsillectomy Family History Father No problems noted. Mother No problems noted. Social History Household Members: Spouse Household Members Other:: spouse has dementia Housing: House Are you a primary critical care physician to a significant other at home: Yes (-has dementia) Do you presently have visiting nurse or other home services: No Alcohol intake: never Patient Tobacco Use Status: Never used Tobacco e-Cigarette/Vaping Use: Never Used Second Hand Smoke Exposure: No service: No Current occupational status: retired Current occupation: right handed Cognitive needs: No Hearing needs: No Vision needs: No Review of Systems Const Denies chills and Denies fever(s) Card Reports no additional complaints and Denies syncope Resp Denies cough GI Denies abdominal pain and Denies heartburn Reports as per HPI and Denies change in libido Neuro Denies syncope Psych Denies change in libido Endo Denies change in libido Physical Exam Const General: cooperative, healthy appearing, comfortable and no acute distress Orientation/consciousness: patient oriented x3 HEENT Face and sinus: Yes normal facial exam Mouth: moist mucous membranes Neck Neck: Yes normal visual inspection, Yes full ROM and Yes trachea midline Chest Chest palpation & inspection: normal inspection of the chest Resp Effort & Inspection: normal respiratory effort, able to speak in complete sentences and no respiratory distress GI Inspection: Yes normal to inspection Back/Spine/Pelvis Cervical Spine: normal cervical lordosis Thoracic/Lumbar Spine: thoracic and lumbar spine normal to inspection Skin General skin exam: no rashes or lesions noted Neuro General: patient oriented x3, gait normal, tone normal and moves all extremities Extrem General: Yes normal to inspection and Yes capillary refill normal Office Procedures Post Void Residual Post Residual Void Post Void Residual (PVR): 0 [id number] Void Residual by ultrasound Assessment & Plan Assessment & Plan (1) Overactive bladder: Code(s): N32.81 - Overactive bladder Plan Six-month follow-up telephone Orders: Orders AMB Post Void Residual by ultrasound 11/28/23 R33.9 - Retention of urine, unspecified Patient Instructions: Imaging studies, laboratory and physical exam results were discussed and reviewed in detail. No major barriers to patient understanding were identified. An opportunity to ask questions regarding the treatment plan was provided. All questions were answered. The patient expressed understanding and agreement with the above treatment plan. The patient is aware they should contact our office by phone for worsening of their current condition or the appearance of new urologic symptoms. Compliance is encouraged with any medications and followup testing that is ordered. It is a privilege to participate in the urologic care of your patient. If you gill ve any questions or concerns regarding treatment for the above conditions, or other urologic issues, please do not hesitate to contact me. The office telephone contact is [phone]. This note is constructed using voice recognition software. While every effort has been made to ensure accuracy soiled linen distributor errors may have been included. Yours sincerely, Dr Syed Adams MD, [facility] - Urology Providers of Expert, Compassionate Care for the Genitourinary System Coding Level of Care Code Est Pt Level 3 (02788) Diagnoses Overactive bladder N32.81 CPT Codes Post Residual Void - PVR CPT Code: 60529-Jsjr Void Residual by ultrasound ([id number])
== END 2023-11-28 10:37 | disposition home or self-care (01) ==
LOC: HO.HUSH 09:50
PROVIDERS: PCP Internal Medicine; Visit Provider Urology
DX: N32.81 Overactive bladder (principal)
CPT/HCPCS: 99213

== ENCOUNTER → 2023-11-28 09:50 | Outpatient (BNVA) | payer MEDICARE, MEDICAID, SELFPAY | PROVIDERS: PCP Internal Medicine; Visit Provider Urology | DX: N32.81 Overactive bladder (principal) | CPT/HCPCS: 51798; 99212 ==

== ENCOUNTER 2023-11-30 09:19 | Outpatient (AMB) | payer MEDICARE, MEDICAID, SELFPAY ==
--- NOTE | 2023-11-30 09:35 | A.OFFVIS_ITS ---
Intake Vital Signs 11/30/23 09:42 Height 6 ft Weight 211 lb 2 oz BMI 28.6 BP 90/90 H Blood Pressure Location Rt brachial Position Sitting Respiration 14 Pulse 67 Pulse Source Pulse Oximeter Pulse Oximetry (%) 98 Oxygen Delivery Method Room Air Intake Visit Reasons: Low Back Pain Intake Note: Patient comes in for low back pain. Reports pain 6.5/10. Allergies No Known Allergies [No Known Allergies*] Allergy (Verified 11/30/23 09:42) HPI HPI Comments History of Present Illness Details Olegario is back in my office again with multiple pain generators. At least 1 of them he had very good control over. Dr. Romero operated on his right inguinal hernia and he now does not complain on pain in the right groin. He also reports that spinal cord stimulator Nevro single lead which is positioned in the T10-T11 vertebral projection after the dislodgement still helps him in very significant extent for the right radicular lower leg pain. However this device does not help him with axial back pain. He appears to be interested in pain pump. Pain pump was explained to the patient previously. He has not taking any opioids. He would be a good candidate for opioid and non opioid pain pump. He also complained today on pain in the right shoulder. He was diagnosed with rotator cuff tear by Orthopedic surgery. Considering the length of his chronic symptoms the rotator cuff repair was not offered to the patient. The only thing which patient could potentially have is pain management. I explained to him PNS curonix. To try him on this procedure I need him to go for psychological evaluation. He does not have computer at home so he needs to go for psychological evaluation here. If he would consider pain pump trials he also needs to go for psychological evaluation. Meanwhile I can schedule him for interscalene brachial plexus block on the right diagnostic to prove or dismiss possibility of treating his pain in his shoulder with the interscalene electrode position. Prior: Vicenta MOCTEZUMA the position of the lead is changed compared to it original position on the CT scan it looks like that lead migrated down to the T10-T11 area. Patient reports that it helps better with his sciatica however it fails to help axial back pain. We agreed today that he will go to Dr. Romero and he will discuss the surgery and whether not it is indicated for him. After that he will come back and we will discuss possibility of treatment of his pain with different modalities. I currently think about intrathecal pain pump he is not on any opioids so the pain pump with Dilaudid might be a good way of treating his pain. Because he is suffering from myasthenia gravis I am not sure that addition of any medications to the pump which provide muscular relaxation such as bupivacaine and or baclofen would be a good idea to consider but the time only will show what we can do about it. Prior: pleasant 70 y.o. status post a implant of the SCS Nevro. He reported very good help with the pain with single lead he has in his lumbar spine. The implant was very difficult. The patient has severe DDD, severe narrowing of the intalaminar spaces and abundant epidural adhesions. I have managed to insert only one epidural electrode array lead originally to T9 level. The 2nd lead was not possible to insert. He is also suffering from myasthenia gravis. 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) Back pain Arthritis JULIEN (dyspnea on exertion) Disc degeneration, lumbar Hyperglycemia Abdominal pain Pulmonary nodule Hyperlipidemia Toe ulcer Iatrogenic adrenal insufficiency Multinodular thyroid COPD (chronic obstructive pulmonary disease) Myasthenia gravis Scoliosis Spondylosis of lumbosacral spine with radiculopathy Degenerative disc disease, lumbar Hypothyroid Leg cramps Emphysema of lung Iron deficiency anemia Osteoarthritis Diastolic dysfunction Hypertension Incomplete emptying of bladder due to benign prostatic hyperplasia Nocturia associated with benign prostatic hyperplasia BPH loc w urin obs/LUTS Surgical History History of right inguinal hernia repair (~10/31/23) History of carpal tunnel surgery Hx of hand surgery History of left inguinal hernia repair S/P insertion of spinal cord stimulator History of colonoscopy History of lung surgery (~11/2020) History of total right hip arthroplasty (~02/2018) History of hydrocelectomy Hx of tonsillectomy Family History Father No problems noted. Mother No problems noted. Social History Household Members: Spouse Household Members Other:: spouse has dementia Housing: House Are you a primary outdoor emergency care technician to a significant other at home: Yes (-has dementia) Do you presently have visiting nurse or other home services: No Alcohol intake: never Patient Tobacco Use Status: Never used Tobacco e-Cigarette/Vaping Use: Never Used Second Hand Smoke Exposure: No service: No Current occupational status: retired Current occupation: right handed Cognitive needs: No Hearing needs: No Vision needs: No Review of Systems Const All systems reviewed & are unremarkable except as noted in HPI and below Physical Exam Vital Signs: Last Vital Signs Pulse 67 11/30/23 09:42 Resp 14 11/30/23 09:42 BP 90/90 H 11/30/23 09:42 Pulse Ox 98 11/30/23 09:42 Oxygen Delivery Method Room Air 11/30/23 09:42 BMI result Body Mass Index 28.6 Const General: comfortable, no acute distress, alert and awake HEENT Head: Yes normal to inspection Eyes General: appearance normal, both eyes and all related structures Neck Neck: Yes normal visual inspection and Yes no JVD Resp Effort & Inspection: able to speak in complete sentences and no audible wheezes Cardio Jugular venous distension: no JVD GI Other: There is tenderness on palpation in the projection of the right iliac crest and right pelvis. Sacroiliac joint provocative tests are negative. Inspection: Yes normal to inspection Back/Spine/Pelvis Other: Bending forward with ease a and bending backwards causes him severe pain aggravation. Able to walk on the tip toes with a limp in the left, antalgic gait on the left was walking on the heels as well. Objective weakness of the left lower extremity. Straight leg rising is negative for pain increase in the back, and dorsiflexion of the foot does not cause pain aggravation in the back. Lateral rotation of the foot does not cause pain in the hip, does not cause pain in the groin. Provocative test of the sacroiliac joint on the right are negative Extrem Other: no clubbing, no edema, no sign of phlebitis, PT pulse bilaterally is very easily operate handed, regular rate and rhythm. Dorsalis pedis is non sensed on physical exam,. Assessment & Plan Assessment & Plan (1) Myasthenia gravis: Comment: involving eyelids, right facial muscles & lower extremities-follows w/Dr. Saez Code(s): G70.00 - Myasthenia gravis without (acute) exacerbation (2) Rotator cuff tear arthropathy of right shoulder: Code(s): M75.101 - Unspecified rotator cuff tear or rupture of right shoulder, not specified as traumatic; M12.811 - Other specific arthropathies, not elsewhere classified, right shoulder (3) Postlaminectomy syndrome, lumbar: Code(s): M96.1 - Postlaminectomy syndrome, not elsewhere classified (4) Chronic pain syndrome: Code(s): G89.4 - Chronic pain syndrome Plan 1. Successful surgery with Dr. Romero to fix right inguinal hernia. Groin pain is absent. 2. Single lead Nevro SCS even dislodged down to T10-T9 position still helps the patient with radicular symptoms on the right. 3. Patient still complains on axial back pain for which Nevro is not very effective. Revision of the spinal cord stimulator is not very feasible, his epidural space is full of adhesions and the procedure of Nevro insertion was very difficult. [employer] was offered to the patient , patient agreed. He needs to go for psychological evaluation. 4. He complains on pain in the right shoulder. Orthopedics diagnose him with rotator cuff tear but due to length of the symptoms did not offer RCR. I offered this patient for pain control to try interscalene nerve block, with positive results curonix PNS could be offered to the patient for this he also needs to go for psychological evaluation. 5. His psychological evaluation needs to be done in the office because he does not have computer at home. Patient Instructions: I here by testify that I spent 38 minutes in conversation with this patient as well as evaluation of prior records of this patient, prior images of this patient and organizing this note. Coding Level of Care Code Est Pt Level 4 (90343) Diagnoses Myasthenia gravis G70.00 Rotator cuff tear arthropathy of right shoulder M75.101; M12.811 Postlaminectomy syndrome, lumbar M96.1 Chronic pain syndrome G89.4
[2023-11-30 09:42] VITALS: BP 90/90; PULSE 67; RESP 14; O2SAT 98; BMI 28.6
== END 2023-11-30 10:15 | disposition home or self-care (01) ==
PROVIDERS: PCP Internal Medicine; Visit Provider Anesthesiology
DX: G70.00 Myasthenia gravis without (acute) exacerbation (principal); M75.101 Unspecified rotator cuff tear or rupture of right shoulder, not specified as traumatic; M12.811 Other specific arthropathies, not elsewhere classified, right shoulder; M96.1 Postlaminectomy syndrome, not elsewhere classified; G89.4 Chronic pain syndrome
CPT/HCPCS: 99214

== ENCOUNTER → 2023-11-30 09:19 | Outpatient (BNVA) | payer MEDICARE, MEDICAID, SELFPAY | PROVIDERS: PCP Internal Medicine; Visit Provider Anesthesiology | DX: G70.00 Myasthenia gravis without (acute) exacerbation (principal); M75.101 Unspecified rotator cuff tear or rupture of right shoulder, not specified as traumatic; M12.811 Other specific arthropathies, not elsewhere classified, right shoulder; M96.1 Postlaminectomy syndrome, not elsewhere classified; G89.4 Chronic pain syndrome | CPT/HCPCS: 99212 ==

== ENCOUNTER → 2023-12-07 10:02 | Outpatient (BNVA) | payer MEDICARE, MEDICAID, SELFPAY | PROVIDERS: PCP Internal Medicine; Visit Provider Anesthesiology ==

== ENCOUNTER 2023-12-19 06:06 | Outpatient (REF) | payer MEDICARE, MEDICAID, SELFPAY | END 2023-12-19 06:07 | disposition home or self-care (01) | LOC: CF 06:06 | PROVIDERS: Visit Provider Anesthesiology | DX: M75.101 Unspecified rotator cuff tear or rupture of right shoulder, not specified as traumatic (principal); M12.811 Other specific arthropathies, not elsewhere classified, right shoulder; G89.4 Chronic pain syndrome | CPT/HCPCS: 64415; J2795 ==

== ENCOUNTER 2023-12-21 08:58 | Outpatient (AMB) | payer MEDICARE, MEDICAID, SELFPAY ==
--- NOTE | 2023-12-21 09:28 | A.OFFVIS_ITS ---
Intake Vital Signs 12/21/23 09:43 Height 6 ft Weight 211 lb BMI 28.6 BP 136/71 Blood Pressure Location Lt brachial Position Sitting Respiration 16 Pulse 63 Pulse Source Pulse Oximeter Pulse Oximetry (%) 97 Oxygen Delivery Method Room Air Intake Visit Reasons: Dx right interscalene/brachial plexus NB/conf Intake Note: Patient came in for post-op appointment. Reports pain 0/10. Allergies No Known Allergies [No Known Allergies*] Allergy (Verified 12/21/23 09:44) HPI HPI Comments History of Present Illness Details Olegario is back in my office regarding to the complains on pain in the right shoulder. He was diagnosed with rotator cuff tear by Orthopedic surgery. Considering the length of his chronic symptoms the rotator cuff repair was not offered to the patient. The only thing which patient could potentially have is pain management. I explained to him PNS curonix. He went 2 days ago for the interscalene nerve block in preparation for the PNS. 2 days after the injection he reports absence of pain in the right shoulder. He reported appropriate paralysis of the right upper arm and absence of pain immediately after the procedure. The pain relief is still lasting. He participated today with [facility] point psychologist in psychological evaluation. As soon as psychological evaluation will be done and no contraindications-I will schedule him for the trial of PNS curonix. The access to the brachial plexus was somewhat difficult due to the massive shoulder, very strong and maybe even hypertrophied right sternocleidomastoid muscle. Special positioning is needed for the trial. T Dr. Romero operated on his right inguinal hernia and he now does not complain on pain in the right groin. He also reports that spinal cord stimulator Nevro single lead which is positioned in the T10-T11 vertebral projection after the dislodgement still helps him in very significant extent for the right radicular lower leg pain. However this device does not help him with axial back pain. He appears to be interested in pain pump. Pain pump was explained to the patient previously. He has not taking any opioids. He would be a good candidate for opioid and non opioid pain pump. Prior: Nevro SCS the position of the lead is changed compared to it original position on the CT scan it looks like that lead migrated down to the T10-T11 area. Patient reports that it helps better with his sciatica however it fails to help axial back pain. We agreed today that he will go to Dr. Romero and he will discuss the surgery and whether not it is indicated for him. After that he will come back and we will discuss possibility of treatment of his pain with different modalities. I currently think about intrathecal pain pump he is not on any opioids so the pain pump with Dilaudid might be a good way of treating his pain. Because he is suffering from myasthenia gravis I am not sure that addition of any medications to the pump which provide muscular relaxation such as bupivacaine and or baclofen would be a good idea to consider but the time only will show what we can do about it. Prior: pleasant 70 y.o. status post a implant of the SCS Nevro. He reported very good help with the pain with single lead he has in his lumbar spine. The implant was very difficult. The patient has severe DDD, severe narrowing of the intalaminar spaces and abundant epidural adhesions. I have managed to insert only one epidural electrode array lead originally to T9 level. The 2nd lead was not possible to insert. He is also suffering from myasthenia gravis. 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) Back pain Arthritis JULIEN (dyspnea on exertion) Disc degeneration, lumbar Hyperglycemia Abdominal pain Pulmonary nodule Hyperlipidemia Toe ulcer Iatrogenic adrenal insufficiency Multinodular thyroid COPD (chronic obstructive pulmonary disease) Myasthenia gravis Scoliosis Spondylosis of lumbosacral spine with radiculopathy Degenerative disc disease, lumbar Hypothyroid Leg cramps Emphysema of lung Iron deficiency anemia Osteoarthritis Diastolic dysfunction Hypertension Incomplete emptying of bladder due to benign prostatic hyperplasia Nocturia associated with benign prostatic hyperplasia BPH loc w urin obs/LUTS Surgical History History of right inguinal hernia repair (~10/31/23) History of carpal tunnel surgery Hx of hand surgery History of left inguinal hernia repair S/P insertion of spinal cord stimulator History of colonoscopy History of lung surgery (~11/2020) History of total right hip arthroplasty (~02/2018) History of hydrocelectomy Hx of tonsillectomy Family History Father No problems noted. Mother No problems noted. Social History Household Members: Spouse Household Members Other:: spouse has dementia Housing: House Are you a primary acute care clinical nurse specialist to a significant other at home: Yes (-has dementia) Do you presently have visiting nurse or other home services: No Alcohol intake: never Patient Tobacco Use Status: Never used Tobacco e-Cigarette/Vaping Use: Never Used Second Hand Smoke Exposure: No service: No Current occupational status: retired Current occupation: right handed Cognitive needs: No Hearing needs: No Vision needs: No Review of Systems Const All systems reviewed & are unremarkable except as noted in HPI and below Physical Exam Vital Signs: Last Vital Signs Pulse 63 12/21/23 09:43 Resp 16 12/21/23 09:43 BP 136/71 12/21/23 09:43 Pulse Ox 97 12/21/23 09:43 Oxygen Delivery Method Room Air 12/21/23 09:43 BMI result Body Mass Index 28.6 Const General: comfortable, no acute distress, alert and awake HEENT Head: Yes normal to inspection Eyes General: appearance normal, both eyes and all related structures Neck Neck: Yes normal visual inspection and Yes no JVD Resp Effort & Inspection: able to speak in complete sentences and no audible wheezes Cardio Jugular venous distension: no JVD GI Other: There is tenderness on palpation in the projection of the right iliac crest and right pelvis. Sacroiliac joint provocative tests are negative. Inspection: Yes normal to inspection Back/Spine/Pelvis Other: Bending forward with ease a and bending backwards causes him severe pain aggravation. Able to walk on the tip toes with a limp in the left, antalgic gait on the left was walking on the heels as well. Objective weakness of the left lower extremity. Straight leg rising is negative for pain increase in the back, and dorsiflexion of the foot does not cause pain aggravation in the back. Lateral rotation of the foot does not cause pain in the hip, does not cause pain in the groin. Provocative test of the sacroiliac joint on the right are negative Extrem Other: no clubbing, no edema, no sign of phlebitis, PT pulse bilaterally is very easily operate handed, regular rate and rhythm. Dorsalis pedis is non sensed on physical exam,. Assessment & Plan Assessment & Plan (1) Myasthenia gravis: Comment: involving eyelids, right facial muscles & lower extremities-follows w/Dr. Saez Code(s): G70.00 - Myasthenia gravis without (acute) exacerbation (2) Rotator cuff tear arthropathy of right shoulder: Code(s): M75.101 - Unspecified rotator cuff tear or rupture of right shoulder, not specified as traumatic; M12.811 - Other specific arthropathies, not elsewhere classified, right shoulder (3) Postlaminectomy syndrome, lumbar: Code(s): M96.1 - Postlaminectomy syndrome, not elsewhere classified (4) Chronic pain syndrome: Code(s): G89.4 - Chronic pain syndrome Plan 1. Successful surgery with Dr. Romero to fix right inguinal hernia. Groin pain is absent. 2. Single lead Nevro SCS even dislodged down to T10-T9 position still helps the patient with radicular symptoms on the right. 3. Patient still complains on axial back pain for which Nevro is not very effective. Revision of the spinal cord stimulator is not very feasible, his epidural space is full of adhesions and the procedure of Nevro insertion was very difficult. [employer] was offered to the patient , patient agreed. He needs to go for psychological evaluation. 4. Good results of the interscalene brachial plexus block on the right, patient had 2. days of almost complete pain relief. In preparation for Curonix PNS trial patient had today psychological evaluation with [facility]. As soon as it is done I will schedule him for the trial of PNS curonix interscalene position. Special positioning is needed for the trial as well as for implant if decision will be made to go for the implant because of the massive shoulder and very strong enlarged sternocleidomastoid muscle on the right. Probable positioning of the patient on the wedge inserted from the right could be contemplated for the trial. Coding Level of Care Code Est Pt Level 3 (75997) Diagnoses Myasthenia gravis G70.00 Rotator cuff tear arthropathy of right shoulder M75.101; M12.811 Postlaminectomy syndrome, lumbar M96.1 Chronic pain syndrome G89.4
[2023-12-21 09:43] VITALS: BP 136/71; PULSE 63; RESP 16; O2SAT 97; BMI 28.6
== END 2023-12-21 10:15 | disposition home or self-care (01) ==
PROVIDERS: PCP Internal Medicine; Visit Provider Anesthesiology
DX: G70.00 Myasthenia gravis without (acute) exacerbation (principal); M75.101 Unspecified rotator cuff tear or rupture of right shoulder, not specified as traumatic; M12.811 Other specific arthropathies, not elsewhere classified, right shoulder; M96.1 Postlaminectomy syndrome, not elsewhere classified; G89.4 Chronic pain syndrome
CPT/HCPCS: 99213

== ENCOUNTER → 2023-12-21 08:58 | Outpatient (BNVA) | payer MEDICARE, MEDICAID, SELFPAY | PROVIDERS: PCP Internal Medicine; Visit Provider Anesthesiology | DX: G70.00 Myasthenia gravis without (acute) exacerbation (principal); M75.101 Unspecified rotator cuff tear or rupture of right shoulder, not specified as traumatic; M12.811 Other specific arthropathies, not elsewhere classified, right shoulder; M96.1 Postlaminectomy syndrome, not elsewhere classified; G89.4 Chronic pain syndrome | CPT/HCPCS: 99212 ==

== ENCOUNTER 2023-12-29 08:59 | Outpatient (AMB) | payer MEDICARE, MEDICAID, SELFPAY ==
[2023-12-29 09:03] VITALS: BP 130/72; PULSE 63; BMI 29.1
--- NOTE | 2023-12-29 09:03 | MHC.OFFVIS ---
Intake Vital Signs 12/29/23 09:03 Height 6 ft Weight 214 lb 4.629 oz BMI 29.1 BP 130/72 Blood Pressure Location Lt brachial Pulse 63 Pulse Source Monitor Intake Visit Reasons: follow up/ chest pain Frame Stylist Required: No Allergies No Known Allergies [No Known Allergies*] Allergy (Verified 12/29/23 09:06) Medication List - Last Reconciled 12/29/23 by Valarie López NP-C acetaminophen (Tylenol) 650 mg PO Q6H PRN aspirin (Enteric Coated Aspirin) 81 mg PO DAILY azathioprine 50 mg PO DAILY clotrimazole-betamethasone 1-0.05 % 1 appl topical DAILY PRN glycopyrrolate-formoterol 9-4.8 mcg (Bevespi Aerosphere) 2 puffs inhalation BID 30 days levothyroxine 50 mcg PO DAILY lisinopril 20 mg PO DAILY multivitamin 1 cap PO DAILY nitroglycerin 0.4 mg sublingual Q5M PRN omeprazole 20 mg PO DAILY prednisone 10 mg PO DAILY pyridostigmine bromide 60 mg PO TID rosuvastatin (Crestor) 5 mg PO DAILY Stiolto Respimat 2.5-2.5 mcg/actuation (tiotropium-olodaterol) 2 puffs PO DAILY NS Ventolin HFA 90 mcg/actuation (albuterol sulfate) 2 puffs inhalation Q4-6H PRN NS HPI follow up/ chest pain HPI Details Olegario is a 73 yo male with PMH of HTN, HLD, LVH, COPD, chronic reports of shortness of breath, syncope, nonobstructive coronary artery disease who presents for follow-up. Today he reports that he has been getting a mild ache/pressure in his left chest region when he is at rest. He notices it more in the evening. He does not get chest discomfort during the day or with physical activity. He says it feels like he is breathing shallow and needs to take deep breaths in consciously. Ongoing issues with shortness of breath with exertional activities. No PND, orthopnea or edema. No lightheadedness, presyncope, syncope, falls. Taking meds as directed. Takes care of his significant other who has chronic illness. 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) Back pain Arthritis JLUIEN (dyspnea on exertion) Disc degeneration, lumbar Hyperglycemia Abdominal pain Pulmonary nodule Hyperlipidemia Toe ulcer Iatrogenic adrenal insufficiency Multinodular thyroid COPD (chronic obstructive pulmonary disease) Myasthenia gravis Scoliosis Spondylosis of lumbosacral spine with radiculopathy Degenerative disc disease, lumbar Hypothyroid Leg cramps Emphysema of lung Iron deficiency anemia Osteoarthritis Diastolic dysfunction Hypertension Incomplete emptying of bladder due to benign prostatic hyperplasia Nocturia associated with benign prostatic hyperplasia BPH loc w urin obs/LUTS Surgical History History of right inguinal hernia repair (~10/31/23) History of carpal tunnel surgery Hx of hand surgery History of left inguinal hernia repair S/P insertion of spinal cord stimulator History of colonoscopy History of lung surgery (~11/2020) History of total right hip arthroplasty (~02/2018) History of hydrocelectomy Hx of tonsillectomy Family History Father No problems noted. Mother No problems noted. Social History Household Members: Spouse Household Members Other:: spouse has dementia Housing: House Are you a primary family day care provider to a significant other at home: Yes (-has dementia) Do you presently have visiting nurse or other home services: No Alcohol intake: never Patient Tobacco Use Status: Never used Tobacco e-Cigarette/Vaping Use: Never Used Second Hand Smoke Exposure: No service: No Current occupational status: retired Current occupation: right handed Cognitive needs: No Hearing needs: No Vision needs: No Review of Systems Const All systems reviewed & are unremarkable except as noted in HPI and below ENT Reports dizziness Card Details: left chest ache at rest Reports chest pain, Reports chest pain at rest, Denies chest pain with activity, Denies rapid heart rate, Denies pedal edema, Denies edema, Denies leg edema, Denies lightheadedness, Denies palpitations, Reports dyspnea, Denies dyspnea on exertion and Denies orthopnea Resp Details: shallow breathing at times Denies cough, Reports dyspnea and Denies dyspnea on exertion GI Denies hematochezia and Denies change in stool character Musc Denies abnormal gait, Denies limited range of motion, Denies muscle cramps, Denies muscle weakness, Denies numbness, Denies radiating pain into limb, Denies stiffness and Denies tingling Neuro Denies abnormal gait, Reports dizziness, Denies numbness and Denies tingling Endo Denies palpitations Physical Exam Vital Signs: Last Vital Signs Pulse 63 12/29/23 09:03 BP 130/72 12/29/23 09:03 BMI result Body Mass Index 29.1 Const General: cooperative, healthy appearing, comfortable and no acute distress Orientation/consciousness: patient oriented x3 Neck Neck: Yes normal visual inspection Resp Effort & Inspection: normal respiratory effort Auscultation: clear to auscultation bilaterally, no crackles, no rales, no rhonchi and no wheezes Cardio Jugular venous distension: no JVD Rate: regular rate Rhythm: regular rhythm Heart sounds: S1 normal heart sound present, S2 normal heart sound present, no murmurs and no rubs Neuro General: patient oriented x3 Extrem General: Yes normal to inspection Psych Appearance: grossly normal Mental Status: mental status grossly normal Speech and movement: Normal speech and movement present Office Procedures EKG Details: Today, read by me, sinus rhythm with first-degree AV block, nonspecific intraventricular conduction delay, likely LVH with repolarization abnormality, rate 63, QTC 480 milliseconds [id number], Complete Assessment & Plan Assessment & Plan (1) Chest discomfort: Code(s): R07.89 - Other chest pain Plan: Patient reports an intermittent mild ache/pressure in his left chest region occurring at rest, mostly in the evenings. No chest discomfort during the day or with physical activity. Overall this sounds atypical for angina. He is concerned this may be his heart. He does have a known history of nonobstructive coronary artery disease. EKG done today showing sinus rhythm with first-degree AV block, nonspecific intraventricular conduction delay, LVH with repolarization abnormality, rate 63, overall no change from prior EKG. He is on aspirin and rosuvastatin. He has not on beta-amrik as his resting heart rate runs low. Will try a low-dose amlodipine to see if this helps relieve any of his symptom- amlodipine can act as an antianginal agent. He does have nitroglycerin sublingual that he can use p.r.n.. With his known degree of coronary artery disease I would not expect him to have significant angina. Emergency care if needed for symptoms. Cardiology follow-up 6 weeks, sooner if needed. (2) JULIEN (dyspnea on exertion): Comment: Dyspnea on exertion is mild, as long as he does not climb stairs or walk up [place]. Code(s): R06.00 - Dyspnea, unspecified Plan: History of COPD. Prior reports of chronic shortness of breath with exertion. He was evaluated for any cardiac reason contributing to his shortness of breath. A pharmacological nuclear stress test was done 05/04/2021 showing no evidence of infarct or ischemia, EF mildly reduced. An echocardiogram done 03/23/2021 shows normal EF, moderate LVH, moderate dilated left atrium, normal valves. He continued to have symptoms and then underwent a CTA of the coronary arteries on 11/16/2022 which showed nonobstructive coronary artery disease, moderate proximal LAD stenosis 50-60%, mid LAD 25%, 1st OM less than 50%. This degree of coronary artery disease should not cause his shortness of breath. Most recent echo 07/21/23 showed EF 57%, moderate LVH, severe septal asymmetric hypertrophy without mention of LV outflow obstruction or gradient. On exam he does not have any signs of heart failure/fluid overload. His blood pressure is well controlled. He tells me he is active during the day and does gardening when the weather permits. His shortness of breath symptom is most likely related to his COPD and deconditioning. Signs and symptoms of angina reviewed. (3) COPD (chronic obstructive pulmonary disease): Comment: He does have chronic obstructive pulmonary disease for past many years, it is staying very stable. TX: Stiolto 2 inhalation ONCE A DAY and albuterol HFA 2 puffs Q 4-6 hours only p.r.n.. Code(s): J44.9 - Chronic obstructive pulmonary disease, unspecified Plan: Follows with pulmonology (4) Hypertension: Code(s): I10 - Essential (primary) hypertension Plan: His echo shows moderate LVH, severe septal asymmetric hypertrophy. The importance of very good blood pressure control reviewed with him. Blood pressure good at present time. Will continue on current lisinopril. Labs done 07/21/2023 showed potassium 3.8, creatinine 0.86. (5) CAD (coronary artery disease): Code(s): I25.10 - Atherosclerotic heart disease of burns paiute coronary artery without angina pectoris Plan: CTA of the coronary arteries done last year, details as above. Mild to at most moderate degree of CAD. Adding low-dose amlodipine as antianginal. Continue aspirin, rosuvastatin with LDL goal less than 70. Continue lisinopril for blood pressure control. Emergency care if ever needed for any concerning symptoms. (6) LVH (left ventricular hypertrophy): Code(s): I51.7 - Cardiomegaly Plan: Moderate LVH on last echo (7) Asymmetric septal hypertrophy: Code(s): I42.2 - Other hypertrophic cardiomyopathy Plan: Severe asymmetric septal hypertrophy seen on last echo. No mention of outflow obstruction on echocardiogram. Blood pressure is well controlled. He has some shortness of breath which has been chronic. No signs of heart failure on exam. Plan Time spent on chart review, documentation, interview and assessment Medications: New amlodipine 2.5 mg PO DAILY 30 tabs 1RF Coding Level of Care Code Est Pt Level 4 (47091) Diagnoses Chest discomfort R07.89 JULIEN (dyspnea on exertion) R06.00 COPD (chronic obstructive pulmonary disease) J44.9 Hypertension I10 CAD (coronary artery disease) I25.10 LVH (left ventricular hypertrophy) I51.7 Asymmetric septal hypertrophy I42.2 CPT Codes EKG - CPT: [id number], Complete ([id number]) Time Spent (min) 30
== END 2023-12-29 09:43 | disposition home or self-care (01) ==
PROVIDERS: PCP Internal Medicine; Visit Provider Nurse Practitioner Family
DX: R07.89 Other chest pain (principal); R06.00 Dyspnea, unspecified; J44.9 Chronic obstructive pulmonary disease, unspecified; I10 Essential (primary) hypertension; I25.10 Atherosclerotic heart disease of native coronary artery without angina pectoris; I51.7 Cardiomegaly; I42.2 Other hypertrophic cardiomyopathy
CPT/HCPCS: 93010; 99214

== ENCOUNTER → 2023-12-29 08:59 | Outpatient (BNVA) | payer MEDICARE, MEDICAID, SELFPAY | PROVIDERS: PCP Internal Medicine; Visit Provider Nurse Practitioner Family | DX: R07.89 Other chest pain (principal); R06.00 Dyspnea, unspecified; I10 Essential (primary) hypertension; I25.10 Atherosclerotic heart disease of native coronary artery without angina pectoris; J44.9 Chronic obstructive pulmonary disease, unspecified; I51.7 Cardiomegaly; I42.2 Other hypertrophic cardiomyopathy | CPT/HCPCS: 93005; 99212 ==

== ENCOUNTER 2024-01-22 10:05 | Outpatient (AMB) | payer MEDICARE, MEDICAID, SELFPAY ==
[2024-01-22 10:12] VITALS: BP 110/60; PULSE 65; O2SAT 97; BMI 29.0
--- NOTE | 2024-01-22 10:12 | A.OFFVIS_ITS ---
Intake Vital Signs 01/22/24 10:12 Height 6 ft Weight 213 lb 13.574 oz BMI 29.0 BP 110/60 Blood Pressure Location Lt brachial Position Sitting Pulse 65 Pulse Source Pulse Oximeter Pulse Oximetry (%) 97 Oxygen Delivery Method Room Air Intake Visit Reasons: copd Intake Note: pt is here for follow up and states he has trouble walking long distances, and sometimes when at rest, he has to remind himself to breath. 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 Required: No Allergies No Known Allergies [No Known Allergies*] Allergy (Verified 01/22/24 10:18) Medication List - Last Reconciled 01/22/24 by David Vizcaino MD acetaminophen (Tylenol) 650 mg PO Q6H PRN amlodipine 2.5 mg PO DAILY aspirin (Enteric Coated Aspirin) 81 mg PO DAILY azathioprine 50 mg PO DAILY clotrimazole-betamethasone 1-0.05 % 1 appl topical DAILY PRN glycopyrrolate-formoterol 9-4.8 mcg (Bevespi Aerosphere) 2 puffs inhalation BID 30 days levothyroxine 50 mcg PO DAILY lisinopril 20 mg PO DAILY multivitamin 1 cap PO DAILY nitroglycerin 0.4 mg sublingual Q5M PRN omeprazole 20 mg PO DAILY prednisone 10 mg PO DAILY pyridostigmine bromide 60 mg PO TID rosuvastatin (Crestor) 5 mg PO DAILY Ventolin HFA 90 mcg/actuation (albuterol sulfate) 2 puffs inhalation Q4-6H PRN NS Do you need a note to return to daycare/school/sports/work: No HPI copd HPI Details Olegario is 74 years old gentleman comes for his 6 months follow-up, mainly for allergic rhinitis and mild COPD. Breathing long has been doing well except in the past few weeks he started having somewhat increased nasal congestion, and a feeling that he has to take some deep breaths. Luckily he has had no respiratory infection. For his myasthenia gravis he is on azathioprine 50 mg and prednisone 10 mg a day. This does of prednisone keeps his lungs clear . He uses Bevespi in place of Stiolto, Not using. Flonase these days He does have Ventolin on hand but he is afraid to use it thinking that it may affect his hard. 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) Back pain Arthritis JULIEN (dyspnea on exertion) Disc degeneration, lumbar Hyperglycemia Abdominal pain Pulmonary nodule Hyperlipidemia Toe ulcer Iatrogenic adrenal insufficiency Multinodular thyroid COPD (chronic obstructive pulmonary disease) Myasthenia gravis Scoliosis Spondylosis of lumbosacral spine with radiculopathy Degenerative disc disease, lumbar Hypothyroid Leg cramps Emphysema of lung Iron deficiency anemia Osteoarthritis Diastolic dysfunction Hypertension Incomplete emptying of bladder due to benign prostatic hyperplasia Nocturia associated with benign prostatic hyperplasia BPH loc w urin obs/LUTS Surgical History History of right inguinal hernia repair (~10/31/23) History of carpal tunnel surgery Hx of hand surgery History of left inguinal hernia repair S/P insertion of spinal cord stimulator History of colonoscopy History of lung surgery (~11/2020) History of total right hip arthroplasty (~02/2018) History of hydrocelectomy Hx of tonsillectomy Family History Father No problems noted. Mother No problems noted. Social History Household Members: Spouse Household Members Other:: spouse has dementia Housing: House Are you a primary progressive care manager to a significant other at home: Yes (-has dementia) Do you presently have visiting nurse or other home services: No Alcohol intake: never Patient Tobacco Use Status: Never used Tobacco e-Cigarette/Vaping Use: Never Used Second Hand Smoke Exposure: No service: No Current occupational status: retired Current occupation: right handed Cognitive needs: No Hearing needs: No Vision needs: No Physical Exam Vital Signs: Last Vital Signs Pulse 65 01/22/24 10:12 BP 110/60 01/22/24 10:12 Pulse Ox 97 01/22/24 10:12 Oxygen Delivery Method Room Air 01/22/24 10:12 BMI result Body Mass Index 29.0 Const General: comfortable, no acute distress, alert and awake Orientation/consciousness: patient oriented x3 HEENT Head: Yes normal to inspection General nose exam: No nasal polyps present, No nasal discharge present and Other nasal findings present ( mild nasal congestion is noted) Face and sinus: Yes sinuses nontender Mouth: oropharynx normal Throat: Yes posterior oropharynx normal Eyes General: appearance normal, both eyes and all related structures Neck Neck: Yes normal visual inspection, Yes no lymphadenopathy, Yes trachea midline and Yes no JVD Thyroid: Thyroid normal Chest Chest palpation & inspection: normal inspection of the chest, normal palpation of entire chest wall and no tenderness Resp Other: Percussion note resonant, breath sounds are slightly diminished over the basilar areas. No wheezes , CREPS or rhonchi are heard. Cardio Palpation: PMI not normal (Not palpable) Rate: regular rate Rhythm: regular rhythm Heart sounds: no gallops and no murmurs GI Palpation (GI): Soft to palpation, nontender, No hepatosplenomegaly present, no masses and Other GI palpation findings present (Abdomen is moderately obese) Auscultation: normal bowel sounds Back/Spine/Pelvis Thoracic/Lumbar Spine: thoracic and lumbar spine normal to inspection Skin General skin exam: no rashes or lesions noted Neuro General: patient oriented x3 and no focal motor deficits Cranial nerves: Yes CN's II-XII intact bilaterally Extrem General: Yes normal to inspection, Yes no clubbing, cyanosis or edema and Yes no calf tenderness Psych Appearance: grossly normal and well kempt Speech and movement: Normal speech and movement present Assessment & Plan Assessment & Plan (1) COPD (chronic obstructive pulmonary disease): Comment: HE HAS MODERATELY SEVERE CHRONIC OBSTRUCTIVE PULMONARY DISORDER. WITH HIS CURRENT MEDICAL REGIMEN HIS PULMONARY STATUS IS STAYING STABLE. Code(s): J44.9 - Chronic obstructive pulmonary disease, unspecified Plan: TX :CONTINUE TO USE BEVESPI INHALATIONS DAILY . DOES NOT NEED ICS , HE IS ON ORAL PREDNISONE ADVISED TO CHECK HIS PEAK FLOWS REGULARLY AND NOTE DOWN GOAL IS TO KEEP ABOVE 350 - 400 ALSO ADVISED TO KEEP ON DOING DEEP BREATHING EXERCISES 2 OR 3 TIMES A DAY. (2) Allergic rhinitis: Comment: He presents with symptoms of nasal congestion postnasal drip and cough. at nighttime This seems to be secondary to allergic rhinitis. in December 2022, EIOSINOPHIL count was 0.6 ( 600 ) Code(s): J30.9 - Allergic rhinitis, unspecified Plan: Treatment advised: Flonase 2 spray and he should nostril daily at bedtime. Cetirizine OR Claritin 10 mg may take 1 at bedtime. Coding Level of Care Code Est Pt Level 3 (97290) Diagnoses COPD (chronic obstructive pulmonary disease) J44.9 Allergic rhinitis J30.9
== END 2024-01-22 10:38 | disposition home or self-care (01) ==
PROVIDERS: PCP Internal Medicine; Visit Provider Internal Medicine
DX: J44.9 Chronic obstructive pulmonary disease, unspecified (principal); J30.9 Allergic rhinitis, unspecified
CPT/HCPCS: 99213

== ENCOUNTER → 2024-01-22 10:05 | Outpatient (BNVA) | payer MEDICARE, MEDICAID, SELFPAY | PROVIDERS: PCP Internal Medicine; Visit Provider Internal Medicine | DX: J44.9 Chronic obstructive pulmonary disease, unspecified (principal); J30.9 Allergic rhinitis, unspecified | CPT/HCPCS: 99212 ==

== ENCOUNTER 2024-02-12 08:06 | Outpatient (AMB) | payer MEDICARE, MEDICAID, SELFPAY ==
--- NOTE | 2024-02-12 08:16 | A.OFFVIS_ITS ---
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 Allergies No Known Allergies [No Known Allergies*] Allergy (Verified 02/12/24 08:19) Medication List - Last Reconciled 02/12/24 by EVA Rolle acetaminophen (Tylenol) 650 mg PO Q6H PRN amlodipine 2.5 mg PO DAILY aspirin (Enteric Coated Aspirin) 81 mg PO DAILY azathioprine 50 mg PO DAILY clotrimazole-betamethasone 1-0.05 % 1 appl topical DAILY PRN glycopyrrolate-formoterol 9-4.8 mcg (Bevespi Aerosphere) 2 puffs inhalation BID 30 days levothyroxine 50 mcg PO DAILY lisinopril 20 mg PO DAILY multivitamin 1 cap PO DAILY nitroglycerin 0.4 mg sublingual Q5M PRN omeprazole 20 mg PO DAILY prednisone 10 mg PO DAILY pyridostigmine bromide 60 mg PO TID rosuvastatin (Crestor) 5 mg PO DAILY Ventolin HFA 90 mcg/actuation (albuterol sulfate) 2 puffs inhalation Q4-6H PRN NS HPI 6 wk f/up HPI Details Olegario is a 74 yo male with PMH of HTN, HLD, LVH, COPD, chronic reports of shortness of breath, syncope, nonobstructive coronary artery disease who had a chest aching on last visit and low-dose amlodipine was added. He now presents for follow-up. Today he reports that his mild aching/pressure in his left chest region has improved with the addition of amlodipine. He was mostly noticing his symptom at rest and during the evenings. He has not been getting any chest discomfort with physical activity. Overall he feels better on his new medication. He does have some shortness of breath with physical activity which he relates to his COPD. No PND, orthopnea or edema. No lightheadedness, presyncope, syncope, falls. Taking meds as directed. Takes care of his significant other who has chronic illness. Wakes up 4-5 times per night to urinate. States he follows with Dr. Adams in his going to ask him about further treatments for this. 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) Back pain Arthritis JULIEN (dyspnea on exertion) Disc degeneration, lumbar Hyperglycemia Abdominal pain Pulmonary nodule Hyperlipidemia Toe ulcer Iatrogenic adrenal insufficiency Multinodular thyroid COPD (chronic obstructive pulmonary disease) Myasthenia gravis Scoliosis Spondylosis of lumbosacral spine with radiculopathy Degenerative disc disease, lumbar Hypothyroid Leg cramps Emphysema of lung Iron deficiency anemia Osteoarthritis Diastolic dysfunction Hypertension Incomplete emptying of bladder due to benign prostatic hyperplasia Nocturia associated with benign prostatic hyperplasia BPH loc w urin obs/LUTS Surgical History History of right inguinal hernia repair (~10/31/23) History of carpal tunnel surgery Hx of hand surgery History of left inguinal hernia repair S/P insertion of spinal cord stimulator History of colonoscopy History of lung surgery (~11/2020) History of total right hip arthroplasty (~02/2018) History of hydrocelectomy Hx of tonsillectomy Family History Father No problems noted. Mother No problems noted. Social History Household Members: Spouse Household Members Other:: spouse has dementia Housing: House Are you a primary health care specialist to a significant other at home: Yes (-has dementia) Do you presently have visiting nurse or other home services: No Alcohol intake: never Patient Tobacco Use Status: Never used Tobacco e-Cigarette/Vaping Use: Never Used Second Hand Smoke Exposure: No service: No Current occupational status: retired Current occupation: right handed Cognitive needs: No Hearing needs: No Vision needs: No Review of Systems Const All systems reviewed & are unremarkable except as noted in HPI and below ENT Denies dizziness Card Details: chest feeling better Denies chest pain, Denies chest pain at rest, Denies chest pain with activity, Denies rapid heart rate, Denies pedal edema, Denies edema, Denies leg edema, Denies lightheadedness, Denies palpitations, Denies dyspnea, Denies dyspnea on exertion and Denies orthopnea Resp Denies cough, Denies dyspnea and Denies dyspnea on exertion GI Denies hematochezia and Denies change in stool character Musc Denies abnormal gait, Reports limited range of motion, Reports muscle cramps, Denies muscle weakness, Denies numbness, Denies radiating pain into limb, Denies stiffness and Denies tingling Neuro Denies abnormal gait, Denies dizziness, Denies numbness and Denies tingling Endo Denies palpitations Physical Exam Vital Signs: Last Vital Signs Pulse 64 02/12/24 08:17 BP 130/74 02/12/24 08:17 BMI result Body Mass Index 28.8 Const General: cooperative, healthy appearing, comfortable and no acute distress Orientation/consciousness: patient oriented x3 Neck Neck: Yes normal visual inspection Resp Effort & Inspection: normal respiratory effort Auscultation: clear to auscultation bilaterally, no crackles, no rales, no rhonchi and no wheezes Cardio Jugular venous distension: no JVD Rate: regular rate Rhythm: regular rhythm Heart sounds: S1 normal heart sound present, S2 normal heart sound present, no murmurs and no rubs Neuro General: patient oriented x3 Extrem General: Yes normal to inspection Psych Appearance: grossly normal Mental Status: mental status grossly normal Speech and movement: Normal speech and movement present Assessment & Plan Assessment & Plan (1) Chest discomfort: Code(s): R07.89 - Other chest pain Plan: On last visit patient reported intermittent mild ache/pressure in his left chest region occurring at rest, mostly in the evenings. No chest discomfort during the day or with physical activity. Overall this sounds atypical for angina. He does have a known history of nonobstructive coronary artery disease. EKG done last visit showed sinus rhythm with first-degree AV block, nonspecific intraventricular conduction delay, LVH with repolarization abnormality, rate 63, overall no change from prior EKG. He is on aspirin and rosuvastatin. He has not on beta-amrik as his resting heart rate runs low. He was started on low- dose amlodipine to see if this helps relieve any of his symptom. Today he reports that his left chest aching/pressure has improved. He continues to deny any exertional symptoms. He believes the amlodipine has helped him. It is possible that this was mild atypical angina or it could have been musculoskeletal discomfort that has since resolved. Will continue on current med management. Signs and symptoms of angina reviewed with him. Emergency care if ever needed for symptoms. Cardiology follow-up 3-4 months, sooner if needed. (2) JULIEN (dyspnea on exertion): Comment: Dyspnea on exertion is mild, as long as he does not climb stairs or walk up [place]. Code(s): R06.00 - Dyspnea, unspecified Plan: History of COPD. Patient reports chronic shortness of breath with exertion. He was evaluated for any cardiac reason contributing to his shortness of breath. A pharmacological nuclear stress test was done 05/04/2021 showing no evidence of infarct or ischemia, EF mildly reduced. An echocardiogram done 03/23/2021 shows normal EF, moderate LVH, moderate dilated left atrium, normal valves. He continued to have symptoms and then underwent a CTA of the coronary arteries on 11/16/2022 which showed nonobstructive coronary artery disease, moderate proximal LAD stenosis 50-60%, mid LAD 25%, 1st OM less than 50%. This degree of coronary artery disease should not cause his shortness of breath. Most recent echo 07/21/23 showed EF 57%, moderate LVH, severe septal asymmetric hypertrophy without mention of LV outflow obstruction or gradient. On exam he does not have any signs of heart failure/fluid overload. His blood pressure is well controlled. He tells me he is active during the day and does gardening when the weather permits. His shortness of breath symptom is most likely related to his COPD and deconditioning. Signs and symptoms of angina reviewed. (3) COPD (chronic obstructive pulmonary disease): Comment: He does have chronic obstructive pulmonary disease for past many years, it is staying very stable. TX: Stiolto 2 inhalation ONCE A DAY and albuterol HFA 2 puffs Q 4-6 hours only p.r.n.. Code(s): J44.9 - Chronic obstructive pulmonary disease, unspecified Plan: Follows with pulmonology (4) Hypertension: Code(s): I10 - Essential (primary) hypertension Plan: His echo shows moderate LVH, severe septal asymmetric hypertrophy. The importance of very good blood pressure control reviewed with him. Blood pressure good at present time. Will continue on current lisinopril. Labs done 07/21/2023 showed potassium 3.8, creatinine 0.86. (5) CAD (coronary artery disease): Code(s): I25.10 - Atherosclerotic heart disease of [place] coronary artery without angina pectoris Plan: CTA of the coronary arteries done last year, details as above. Mild to at most moderate degree of CAD. No anginal symptoms at this time. Continue aspirin, rosuvastatin with LDL goal less than 70, amlodipine. Continue lisinopril for blood pressure control. Emergency care if ever needed for any concerning symptoms. (6) LVH (left ventricular hypertrophy): Code(s): I51.7 - Cardiomegaly Plan: Moderate LVH on last echo (7) Asymmetric septal hypertrophy: Code(s): I42.2 - Other hypertrophic cardiomyopathy Plan: Severe asymmetric septal hypertrophy seen on last echo. No mention of outflow obstruction on echocardiogram. Blood pressure is well controlled. He has some shortness of breath which has been chronic. No signs of heart failure on exam. Plan Time spent on chart review, documentation, interview and assessment Medications: Refilled amlodipine 2.5 mg PO DAILY 90 tabs 1RF Coding Level of Care Code Est Pt Level 4 (06940) Diagnoses Chest discomfort R07.89 JULIEN (dyspnea on exertion) R06.00 COPD (chronic obstructive pulmonary disease) J44.9 Hypertension I10 CAD (coronary artery disease) I25.10 LVH (left ventricular hypertrophy) I51.7 Asymmetric septal hypertrophy I42.2 Time Spent (min) 28
[2024-02-12 08:17] VITALS: BP 130/74; PULSE 64; BMI 28.8
== END 2024-02-12 08:43 | disposition home or self-care (01) ==
PROVIDERS: PCP Internal Medicine; Visit Provider Nurse Practitioner Family
DX: R07.89 Other chest pain (principal); R06.00 Dyspnea, unspecified; J44.9 Chronic obstructive pulmonary disease, unspecified; I10 Essential (primary) hypertension; I25.10 Atherosclerotic heart disease of native coronary artery without angina pectoris; I51.7 Cardiomegaly; I42.2 Other hypertrophic cardiomyopathy
CPT/HCPCS: 99214

== ENCOUNTER → 2024-02-12 08:06 | Outpatient (BNVA) | payer MEDICARE, MEDICAID, SELFPAY | PROVIDERS: PCP Internal Medicine; Visit Provider Nurse Practitioner Family | DX: R07.89 Other chest pain (principal); R06.00 Dyspnea, unspecified; J44.9 Chronic obstructive pulmonary disease, unspecified; I25.10 Atherosclerotic heart disease of native coronary artery without angina pectoris; I10 Essential (primary) hypertension; I51.7 Cardiomegaly; I42.2 Other hypertrophic cardiomyopathy | CPT/HCPCS: 99212 ==

== ENCOUNTER 2024-04-05 08:17 | Outpatient (AMB) | payer MEDICARE, MEDICAID, SELFPAY ==
--- NOTE | 2024-04-05 08:29 | A.OFFVIS_ITS ---
Intake Visit Reasons: discuss potential procedure/nocturia Intake Note: Patient is Present for PVR/ Urology Med: None Antibiotic Allergy: None Blood Thinner:Aspirin Last PVR: 0ml Todays PVR: 34ml Allergies No Known Allergies [No Known Allergies*] Allergy (Verified 06/21/24 10:47) HPI Comments Details: Olegario is a very pleasant male. He is a patient of Dr. Suazo. He is seen for the following urologic conditions - lower urinary tract symptoms - renal cyst Discussed possible InterStim Has stimulator for sciatica Discussed Botox Interested in trialing Overactive bladder Cystoscopy 02/25 trabeculation with reduced stability open bladder neck Failed trial of tolterodine and oxybutynin, toviaz secondary to dry mouth and dry eyes Nocturia stabilized with imipramine over still getting up 5 times at night Effective response to meds Lower urinary tract symptoms Current encounter for the follow-up of lower urinary tract symptoms - good response with finasteride daily for effective stream and emptying Current treatment includes medication - none Prostate Symptom Score 8/18 , Moderate (9-19), Bother 3. Symptoms include 8/18 , incomplete emptying, weak stream, nocturia (>2), and are progressing. Results from testing include cystoscopy high riding bladder neck (median bar) 07/24, 01/25 median bar with mild trabeculation renal/bladder us Yes date 07/04/2018 PVR 35 prostate size 45 PSA 02/22 1.2, 11/26 0.5 Prostate volume 30-50gm. 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) Back pain Arthritis JULIEN (dyspnea on exertion) Disc degeneration, lumbar Hyperglycemia Abdominal pain Pulmonary nodule Hyperlipidemia COPD (chronic obstructive pulmonary disease) Myasthenia gravis Scoliosis Spondylosis of lumbosacral spine with radiculopathy Degenerative disc disease, lumbar Hypothyroid Leg cramps Emphysema of lung Iron deficiency anemia Osteoarthritis Diastolic dysfunction Hypertension Incomplete emptying of bladder due to benign prostatic hyperplasia Nocturia associated with benign prostatic hyperplasia BPH loc w urin obs/LUTS Surgical History History of right inguinal hernia repair (~10/31/23) History of carpal tunnel surgery Hx of hand surgery History of left inguinal hernia repair S/P insertion of spinal cord stimulator History of colonoscopy History of lung surgery (~11/2020) History of total right hip arthroplasty (~02/2018) History of hydrocelectomy Hx of tonsillectomy Family History Father No problems noted. Mother No problems noted. Social History Household Members: Spouse Household Members Other:: spouse has dementia Housing: House Are you a primary career development consultant to a significant other at home: Yes (-has dementia) Do you presently have visiting nurse or other home services: No Alcohol intake: never Patient Tobacco Use Status: Never used Tobacco e-Cigarette/Vaping Use: Never Used Second Hand Smoke Exposure: No service: No Current occupational status: retired Current occupation: right handed Cognitive needs: No Hearing needs: No Vision needs: No Review of Systems Const Denies chills and Denies fever(s) Card Reports no additional complaints and Denies syncope Resp Denies cough GI Denies abdominal pain and Denies heartburn Reports as per HPI and Denies change in libido Neuro Denies syncope Psych Denies change in libido Endo Denies change in libido Physical Exam Const General: cooperative, healthy appearing, comfortable and no acute distress Orientation/consciousness: patient oriented x3 HEENT Face and sinus: Yes normal facial exam Mouth: moist mucous membranes Neck Neck: Yes normal visual inspection, Yes full ROM and Yes trachea midline Chest Chest palpation & inspection: normal inspection of the chest Resp Effort & Inspection: normal respiratory effort, able to speak in complete sentences and no respiratory distress GI Inspection: Yes normal to inspection Back/Spine/Pelvis Cervical Spine: normal cervical lordosis Thoracic/Lumbar Spine: thoracic and lumbar spine normal to inspection Skin General skin exam: no rashes or lesions noted Neuro General: patient oriented x3, gait normal, tone normal and moves all extremities Extrem General: Yes normal to inspection and Yes capillary refill normal Office Procedures Post Void Residual Post Residual Void Post Void Residual (PVR): 34 [id number] Void Residual by ultrasound Assessment & Plan Assessment & Plan (1) Chronic pain syndrome: Code(s): G89.4 - Chronic pain syndrome Category: Medical (2) Overactive bladder: Code(s): N32.81 - Overactive bladder Category: Medical Plan OR Botox Risks, benefits and alternatives to therapy were discussed. These include but are not limited to infection, bleeding, damage to local organs and tissues, need for further interventions. Anesthetic risks regarding cardiac arrhythmia, blood clots, and potential mortality were discussed. The patient understands the typical recovery time and the outpatient nature of the procedure. After consideration of these risks the patient gives full informed consent and they wish to move ahead with the procedure. Orders: Orders AMB Post Void Residual by ultrasound 04/05/24 N32.81 - Overactive bladder Patient Instructions: Imaging studies, laboratory and physical exam results were discussed and reviewed in detail. No major barriers to patient understanding were identified. An opportunity to ask questions regarding the treatment plan was provided. All questions were answered. The patient expressed understanding and agreement with the above treatment plan. The patient is aware they should contact our office by phone for worsening of their current condition or the appearance of new urologic symptoms. Compliance is encouraged with any medications and followup testing that is ordered. It is a privilege to participate in the urologic care of your patient. If you have any questions or concerns regarding treatment for the above conditions, or other urologic issues, please do not hesitate to contact me. The office telephone contact is [phone]. This note is constructed using voice recognition software. While every effort has been made to ensure accuracy pet care associate errors may have been included. Yours sincerely, Dr Syed Adams MD, [facility] - Urology Providers of Expert, Compassionate Care for the Genitourinary System Coding Level of Care Code Est Pt Level 4 (25796) Diagnoses Chronic pain syndrome G89.4 Overactive bladder N32.81 CPT Codes Post Residual Void - PVR CPT Code: 81845-[id number] Void Residual by ultrasound ([id number])
== END 2024-04-05 09:32 | disposition home or self-care (01) ==
PROVIDERS: PCP Internal Medicine; Visit Provider Urology
DX: G89.4 Chronic pain syndrome (principal); N32.81 Overactive bladder
CPT/HCPCS: 99214

== ENCOUNTER → 2024-04-05 08:17 | Outpatient (BNVA) | payer MEDICARE, MEDICAID, SELFPAY | PROVIDERS: PCP Internal Medicine; Visit Provider Urology | DX: N32.81 Overactive bladder (principal); G89.4 Chronic pain syndrome | CPT/HCPCS: 51798; 99212 ==

== ENCOUNTER 2024-05-06 06:27 | Day surgery (SDC) | payer MEDICARE, MEDICAID, SELFPAY ==
[2024-05-02 14:29] VITALS: BMI 28.7
--- NOTE | 2024-05-02 15:28 | P.CONAN_ITS ---
Documented by User: Alexandria Cox NP 05/03/24 13:01 HPI - Anesthesia Eval Consult details Narrative: 74yo M for Cystoscopy Botox Injection s/p OPEN Hernia Repair Inguinal with mesh 10/2023 [place] [facility] [place] Stable, asymptomatic, euvolemic at 02/2024 office visit. [place] [facility] [place] - Last office visit 01/2024: COPD stable Myesthenia dx'd 2019 - prednisone 10mg daily, pyridostigmine 60mg TID PMFSH Active Problems Active Problems: All Active Problems Allergic rhinitis (Acute) Chest discomfort (Acute) Chronic pain syndrome (Acute) Postlaminectomy syndrome, lumbar (Acute) Rotator cuff tear arthropathy of right shoulder (Acute) Asymmetric septal hypertrophy (Acute) LVH (left ventricular hypertrophy) (Acute) CAD (coronary artery disease) (Acute) Inguinal hernia (Acute) Skin lesion (Acute) Other specified abdominal hernia without obstruction or gangrene (Acute) Petit triangle hernia (Acute) Arthritis of right glenohumeral joint (Acute) Rotator cuff arthropathy of right shoulder (Acute) Trigger finger, right little finger (Acute) Left groin pain (Acute) Trigger finger of left thumb (Acute) History of carpal tunnel surgery of left wrist (Acute) Carpal tunnel syndrome of left wrist (Acute) History of carpal tunnel surgery of right wrist (Acute) Annual physical exam (Acute) Greater trochanteric bursitis of left hip (Acute) Overactive bladder (Acute) Carpal tunnel syndrome of right wrist (Acute) Renal cyst (Acute) Preop cardiovascular exam (Acute) Bifascicular block (Acute) Right inguinal hernia (Acute) Hyperlipidemia (Acute) Hypothyroid (Acute) COPD (chronic obstructive pulmonary disease) (Acute) Vasovagal episode (Acute) Left inguinal hernia (Acute) Hyperglycemia (Acute) Abdominal pain (Acute) Myasthenia gravis (Acute) Toe ulcer (Acute) Iatrogenic adrenal insufficiency (Acute) Past Medical History Medical History Allergic rhinitis Chronic pain syndrome GERD (gastroesophageal reflux disease) Right inguinal hernia Shoulder pain, right Bladder instability Syncope Chronic dyspnea Bifascicular block Elevated troponin Preop cardiovascular exam Vasovagal episode Left inguinal hernia 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) Back pain Arthritis JULIEN (dyspnea on exertion) Disc degeneration, lumbar Hyperglycemia Abdominal pain Pulmonary nodule Hyperlipidemia Toe ulcer Iatrogenic adrenal insufficiency Multinodular thyroid COPD (chronic obstructive pulmonary disease) Myasthenia gravis Scoliosis Spondylosis of lumbosacral spine with radiculopathy Degenerative disc disease, lumbar Hypothyroid Leg cramps Emphysema of lung Iron deficiency anemia Osteoarthritis Diastolic dysfunction Hypertension Incomplete emptying of bladder due to benign prostatic hyperplasia Nocturia associated with benign prostatic hyperplasia BPH loc w urin obs/LUTS Family History Family History Father No problems noted. Mother No problems noted. Family history of problems with anesthesia: No Surgical History Surgical History History of right inguinal hernia repair (~10/31/23) History of carpal tunnel surgery Hx of hand surgery History of left inguinal hernia repair S/P insertion of spinal cord stimulator History of colonoscopy History of lung surgery (~11/2020) History of total right hip arthroplasty (~02/2018) History of hydrocelectomy Hx of tonsillectomy History of Problems with Anesthesia: No Social History Social History Household Members: Spouse Household Members Other:: spouse has dementia Housing: House Are you a primary multi care technician to a significant other at home: Yes (-has dementia) Do you presently have visiting nurse or other home services: No Alcohol intake: never Patient Tobacco Use Status: Never used Tobacco e-Cigarette/Vaping Use: Never Used Second Hand Smoke Exposure: No Use of substances other than those prescribed or required for medical reasons: No Are you DNR?: No Advance Directives: No Advance Directives Information Provided: Yes service: No Current occupational status: retired Current occupation: right handed Cognitive needs: No Hearing needs: No Vision needs: No Meds Allergies Allergy/AdvReac Type Severity Reaction Status Date / Time No Known Allergies Allergy Verified 04/05/24 08:32 [No Known Allergies*] Home Medications ?Medication ?Instructions ?Recorded ?Confirmed ?Last Taken ?Type clotrimazole-betamethasone 1 1 applic topical DAILY PRN Rash 08/18/20 05/02/24 Unknown History %-0.05 % topical cream acetaminophen 325 mg tablet 650 mg PO Q6H PRN Pain 08/28/20 05/02/24 10/04/22 History (Tylenol) multivitamin 1 cap PO DAILY 08/28/20 05/02/24 07/17/23 History pyridostigmine bromide 60 mg tablet 60 mg PO TID 01/27/21 05/02/24 10/31/23 05:15 History prednisone 5 mg tablet 5 mg PO DAILY 08/09/23 05/06/24 05/06/24 History azathioprine 50 mg tablet 50 mg PO DAILY 12/07/23 05/02/24 Unknown History sertraline 25 mg tablet 25 mg PO DAILY 04/05/24 05/02/24 Unknown History prednisone 2.5 mg tablet 2.5 mg PO BEDTIME 05/06/24 05/06/24 Unknown History Exam Height,Weight and Vital Signs: Height 6 ft Weight 96.162 kg Narrative Narrative: EKG 12/2023 sinus rhythm with first-degree AV block, nonspecific intraventricular conduction delay, likely LVH with repolarization abnormality, rate 63, QTC 480 milliseconds Per 02/2024 Cardiac office visit A pharmacological nuclear stress test was done 05/04/2021 showing no evidence of infarct or ischemia, EF mildly reduced. An echocardiogram done 03/23/2021 shows normal EF, moderate LVH, moderate dilated left atrium, normal valves. He continued to have symptoms and then underwent a CTA of the coronary arteries on 11/16/2022 which showed nonobstructive coronary artery disease, moderate proximal LAD stenosis 50-60%, mid LAD 25%, 1st OM less than 50%. This degree of coronary artery disease should not cause his shortness of breath. Most recent echo 07/21/23 showed EF 57%, moderate LVH, severe septal asymmetric hypertrophy without mention of LV outflow obstruction or gradient. 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) Back pain Arthritis JULIEN (dyspnea on exertion) Disc degeneration, lumbar Hyperglycemia Abdominal pain Pulmonary nodule Hyperlipidemia Toe ulcer Iatrogenic adrenal insufficiency Multinodular thyroid COPD (chronic obstructive pulmonary disease) Myasthenia gravis Scoliosis Spondylosis of lumbosacral spine with radiculopathy Degenerative disc disease, lumbar Hypothyroid Leg cramps Emphysema of lung Iron deficiency anemia Osteoarthritis Diastolic dysfunction Hypertension Incomplete emptying of bladder due to benign prostatic hyperplasia Nocturia associated with benign prostatic hyperplasia BPH loc w urin obs/LUTS Family History Family History Father No problems noted. Mother No problems noted. Surgical History Surgical History History of right inguinal hernia repair (~10/31/23) History of carpal tunnel surgery Hx of hand surgery History of left inguinal hernia repair S/P insertion of spinal cord stimulator History of colonoscopy History of lung surgery (~11/2020) History of total right hip arthroplasty (~02/2018) History of hydrocelectomy Hx of tonsillectomy Social History Social History Household Members: Spouse Household Members Other:: spouse has dementia Housing: House Are you a primary multi care technician to a significant other at home: Yes (-has dementia) Do you presently have visiting nurse or other home services: No Alcohol intake: never Patient Tobacco Use Status: Never used Tobacco e-Cigarette/Vaping Use: Never Used Second Hand Smoke Exposure: No Use of substances other than those prescribed or required for medical reasons: No Are you DNR?: No Advance Directives: No Advance Directives Information Provided: Yes service: No Current occupational status: retired Current occupation: right handed Cognitive needs: No Hearing needs: No Vision needs: No Meds Allergies Allergy/AdvReac Type Severity Reaction Status Date / Time No Known Allergies Allergy Verified 04/05/24 08:32 [No Known Allergies*] Home Medications ?Medication ?Instructions ?Recorded ?Confirmed ?Last Taken ?Type clotrimazole-betamethasone 1 1 applic topical DAILY PRN Rash 08/18/20 05/02/24 Unknown History %-0.05 % topical cream acetaminophen 325 mg tablet 650 mg PO Q6H PRN Pain 08/28/20 05/02/24 10/04/22 History (Tylenol) multivitamin 1 cap PO DAILY 08/28/20 05/02/24 07/17/23 History pyridostigmine bromide 60 mg tablet 60 mg PO TID 01/27/21 05/02/24 10/31/23 05:15 History prednisone 5 mg tablet 5 mg PO DAILY 08/09/23 05/06/24 05/06/24 History azathioprine 50 mg tablet 50 mg PO DAILY 12/07/23 05/02/24 Unknown History sertraline 25 mg tablet 25 mg PO DAILY 04/05/24 05/02/24 Unknown History prednisone 2.5 mg tablet 2.5 mg PO BEDTIME 05/06/24 05/06/24 Unknown History Exam Airway Mallampati Class: III TM Dist: >3cm Neck ROM: Limited Heart: rrr Lungs: cta Assessment and Plan Assessment Anesthesia Assessment: Anesthesia Plan Discussed Final Anesthetic Review ASA Class: III Final Preanesthetic Review: No Changes in Pt Med Stat, Meds/Allgs Chart Reviewed, Consent Obtained/Reviewed and Anes Risks/Benef Reviewed Patient Risk: Intermediate Procedure Risk: Low Anesthetic Plan Anesthetic Plan: GA and MAC: Disposition: Standard PACU
[2024-05-06 06:47] VITALS: BMI 27.8
[2024-05-06 06:50] VITALS: BMI 27.8
[2024-05-06 06:57] VITALS: BP 144/74; PULSE 54; RESP 18; TEMP 36.1; O2SAT 100
[2024-05-06] MEDS: Lactated Ringers 1,000 ML 100 ML IVCONT (07:29)
[2024-05-06] MEDS: levoFLOXacin 500 MG TABLET PO (09:00)
--- NOTE | 2024-05-06 09:18 | MHC.SHP ---
Pre-Procedural Eval Section A - 24 Hr Update-Section A only Date of Service: 05/06/24 The patient is an INPATIENT: No Changes since office visit: No Cold of Flu in the past 2 weeks, No New Medical Problems, No Changes in Medication and No Patient answered all questions The patient has been examined within 24 hours of the surgical procedure. The History & Physical has been completed within 30 days and I have reviewed it.: No Section B - Complete if H&P > 30 days Chief Complaint: Overactive bladder Details of Present Illness: Persistent overactive bladder plan for Botox trial Relevant Family History (Specify if Yes): No Relevant Social History: None Present Medications: see Short Stay Collaborative assessment Medical History: Significant History (Failed multiple oral overactive bladder medications) History of Previous Operations: No relevant previous surgery Allergies: Allergies Allergy/AdvReac Type Severity Reaction Status Date / Time No Known Allergies Allergy Verified 04/05/24 08:32 [No Known Allergies*] Review of Systems Sugical H&P ROS: Negative: Constitution, Cardiovascular, Respiratory, Neurological, Psychiatric, Hem-Onc, Allergic/Immunologic, Gastrointestinal, Genitourinary, Musculoskeletal, Integumentary, Endocrine and Eyes/Ears/Nose/Throat Exam Surgical H&P Exam: Normal: HEENT, Normal: Heart, Normal: Lungs, Normal: Extremities, Normal: Abdomen, Normal: Skin and Normal: Neurological Plan Diagnosis/Plan: Unchanged (Cystoscopy with Botox injection) I have reviewed the history and physical and performed a pertinent physical examination on my patient. No changes have occurred unless specified. Time Spent With Patient Time: Total time managing care of this patient today ____ minutes.
--- NOTE | 2024-05-06 09:57 | W.PM.OPN ---
Operative Note Operative Note Date of Service: 05/06/24 Narrative: PreOperative Diagnosis: Overactive bladder with failure of medications Post Operative Diagnosis: Overactive bladder with failure of medications Procedure: Cystoscopy with injection 100 units Botox intra detrusor muscle Surgeon: Dr Syed Adams Anesthesia: Sedation Indications for procedure: Has persistent urgency and frequency. Has failed oral medications. Is aware of the risks and benefits particularly related to urinary retention and possible infection. Procedure: After informed consent was verified the patient was brought to the operating room and placed in a supine position. Anesthesia was administered per protocol. Cystoscopy performed with 22 Kazakh cystoscope. Open bladder neck from prior TURP. Bladder was emptied of urine. Bladder was refilled with injection of bladder. Using 100 units of Botox mixed in 10 cc of normal saline injections were placed at the back wall of the bladder. 0.5cc placed at each injection site. Injections were placed in a grid 5 across and for high. Injections were placed from the inferior to superior position. Trabeculations on the bladder wall with targeted for each injection site. Procedure was tolerated well. Patient was extubated and transferred in stable condition to the recovery area. Pathology: None Drains: None
[2024-05-06 10:05] VITALS: BP 85/41; PULSE 47; RESP 16; TEMP 36.2; O2SAT 92
[2024-05-06 10:10] VITALS: BP 87/45; PULSE 48; RESP 16; O2SAT 93
[2024-05-06 10:15] VITALS: BP 87/50; PULSE 50; RESP 18; O2SAT 95
[2024-05-06] MEDS: Phenazopyridine HCL 100 MG TABLET PO (10:16)
[2024-05-06 10:20] VITALS: BP 90/48; PULSE 47; RESP 18; O2SAT 96
[2024-05-06 10:35] VITALS: BP 101/56; PULSE 50; RESP 20; TEMP 36.6; O2SAT 98
== END 2024-05-06 12:07 | disposition home or self-care (01) ==
PROVIDERS: PCP Internal Medicine; Visit Provider Urology
PROC: 3E0K8GC Introduction of Other Therapeutic Substance into Genitourinary Tract, Via Natural or Artificial Opening Endoscopic (ICD-10-PCS; CPT 52287; principal; 2024-05-06 08:50)
DX: N32.81 Overactive bladder (principal); N40.1 Benign prostatic hyperplasia with lower urinary tract symptoms; R35.1 Nocturia; R39.15 Urgency of urination; R35.0 Frequency of micturition; N32.89 Other specified disorders of bladder; I10 Essential (primary) hypertension; I45.2 Bifascicular block; E27.3 Drug-induced adrenocortical insufficiency; E78.5 Hyperlipidemia, unspecified; E03.9 Hypothyroidism, unspecified; G70.00 Myasthenia gravis without (acute) exacerbation; G89.4 Chronic pain syndrome; M51.36 Other intervertebral disc degeneration, lumbar region; D50.9 Iron deficiency anemia, unspecified; J44.9 Chronic obstructive pulmonary disease, unspecified; J43.9 Emphysema, unspecified; Z79.82 Long term (current) use of aspirin; Z79.899 Other long term (current) drug therapy
CPT/HCPCS: 52287; J0585; J2704; J3010

== ENCOUNTER → 2024-05-06 06:27 | Outpatient (BNV) | payer MEDICARE, MEDICAID, SELFPAY | PROVIDERS: PCP Internal Medicine; Visit Provider Urology | DX: N32.81 Overactive bladder (principal) | CPT/HCPCS: 52287 ==

== ENCOUNTER 2024-05-20 08:53 | Outpatient (AMB) | payer MEDICARE, MEDICAID, SELFPAY ==
--- NOTE | 2024-05-20 09:16 | AM.OFFVISNUR ---
Intake Visit Reasons: PVR (Botox) Allergies No Known Allergies [No Known Allergies*] Allergy (Verified 04/05/24 08:32) Office Procedures Post Void Residual Post Residual Void Details: Patient presents to office for bladder scan PVR s/p botox procedure. Patient able to urinate but had complaints of difficulty with urination, feelings of weak stream of urine and nocturia. Urinalysis run- unremarkable. Patient aware. Bladder scanned for 20mls. Patient reporting not much improvement with symptoms of OAB at this time, more concerned with nocturia but endorses drinking lots of fluids before bed . Patient educated on limiting fluids before bed to help reduce nocturia, to call office with any other issues or concerns. Patient has follow up with provider scheduled Post Void Residual (PVR): [id number] Void Residual by ultrasound Results AMB Urinalysis, Automated UA Leukoctes 0 Deepak/uL Last Edit by Dilan Taylor LPN on 05/20/24 09:27 UA Nitrite Negative Last Edit by Dilan Taylor LPN on 05/20/24 09:27 UA Urobilinogen 0.2 mg/dL Last Edit by Dilan Taylor LPN on 05/20/24 09:27 UA Protein 0 mg/dL Last Edit by Dilan Taylor LPN on 05/20/24 09:27 UA pH 6.5 Last Edit by Dilan Taylor LPN on 05/20/24 09:27 UA Blood 0 Michael/uL Last Edit by Dilan Taylor LPN on 05/20/24 09:27 UA Specific Niotaze 1.010 Last Edit by Dilan Taylor LPN on 05/20/24 09:27 UA Ketone Negative Last Edit by Dilan Taylor LPN on 05/20/24 09:27 UA Bilirubin 0 mg/dL Last Edit by Dilan Taylor LPN on 05/20/24 09:27 UA Glucose 0 mg/dL Last Edit by Dilan Taylor LPN on 05/20/24 09:27 Assessment & Plan Assessment & Plan Orders: Orders AMB Post Void Residual by ultrasound Today N32.81 - Overactive bladder AMB Urinalysis Automated Today N32.81 - Overactive bladder
== END 2024-05-20 09:31 | disposition home or self-care (01) ==
PROVIDERS: PCP Internal Medicine; Visit Provider Urology
DX: N32.81 Overactive bladder (principal)

== ENCOUNTER → 2024-05-20 08:53 | Outpatient (BNVA) | payer MEDICARE, MEDICAID, SELFPAY | PROVIDERS: PCP Internal Medicine; Visit Provider Urology | DX: N32.81 Overactive bladder (principal) | CPT/HCPCS: 51798; 81003 ==

== ENCOUNTER 2024-06-10 08:07 | Outpatient (AMB) | payer MEDICARE, MEDICAID, SELFPAY ==
[2024-06-10 08:14] VITALS: BP 114/60; PULSE 68; BMI 27.3
--- NOTE | 2024-06-10 08:14 | A.OFFVIS_ITS ---
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 Allergies No Known Allergies [No Known Allergies*] Allergy (Verified 06/10/24 08:16) Medication List - Last Reconciled 06/10/24 by EVA Rolle acetaminophen (Tylenol) 650 mg PO Q6H PRN amlodipine 2.5 mg PO DAILY aspirin (Enteric Coated Aspirin) 81 mg PO DAILY azathioprine 50 mg PO DAILY clotrimazole-betamethasone 1-0.05 % 1 appl topical DAILY PRN glycopyrrolate-formoterol 9-4.8 mcg (Bevespi Aerosphere) 2 puffs inhalation BID 30 days levothyroxine 50 mcg PO DAILY lisinopril 20 mg PO DAILY multivitamin 1 cap PO DAILY nitroglycerin 0.4 mg sublingual Q5M PRN omeprazole 20 mg PO DAILY prednisone 2.5 mg PO BEDTIME prednisone 5 mg PO DAILY pyridostigmine bromide 60 mg PO TID rosuvastatin 5 mg PO DAILY 90 days sulfamethoxazole-trimethoprim 400-80 mg (Bactrim) 1 tab PO BID 2 days Ventolin HFA 90 mcg/actuation (albuterol sulfate) 2 puffs inhalation Q4-6H PRN NS HPI HPI 4mth f/up: Details: Olegario is a 74 yo male with PMH of HTN, HLD, LVH, COPD, chronic reports of shortness of breath, syncope, nonobstructive coronary artery disease who presents for follow-up. Today he reports that he has some shortness breath with exertional activities. He feels this symptom is overall unchanged from prior reports. He says he has to stop once when walking from the parking lot into the facility where his resides. He has been doing this right along. He has no chest pain pressure, heaviness. No PND, orthopnea or edema. No lightheadedness, presyncope, syncope, falls. Taking meds as directed. Has been working in his large garden. Does 8bit twice weekly. When sweating in the outdoors he drinks Gatorade as replacement. 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) Back pain Arthritis JULIEN (dyspnea on exertion) Disc degeneration, lumbar Hyperglycemia Abdominal pain Pulmonary nodule Hyperlipidemia Toe ulcer Iatrogenic adrenal insufficiency Multinodular thyroid COPD (chronic obstructive pulmonary disease) Myasthenia gravis Scoliosis Spondylosis of lumbosacral spine with radiculopathy Degenerative disc disease, lumbar Hypothyroid Leg cramps Emphysema of lung Iron deficiency anemia Osteoarthritis Diastolic dysfunction Hypertension Incomplete emptying of bladder due to benign prostatic hyperplasia Nocturia associated with benign prostatic hyperplasia BPH loc w urin obs/LUTS Surgical History History of right inguinal hernia repair (~10/31/23) History of carpal tunnel surgery Hx of hand surgery History of left inguinal hernia repair S/P insertion of spinal cord stimulator History of colonoscopy History of lung surgery (~11/2020) History of total right hip arthroplasty (~02/2018) History of hydrocelectomy Hx of tonsillectomy Family History Father No problems noted. Mother No problems noted. Social History Household Members: Spouse Household Members Other:: spouse has dementia Housing: House Are you a primary health care technician to a significant other at home: Yes (-has dementia) Do you presently have visiting nurse or other home services: No Alcohol intake: never Patient Tobacco Use Status: Never used Tobacco e-Cigarette/Vaping Use: Never Used Second Hand Smoke Exposure: No service: No Current occupational status: retired Current occupation: right handed Cognitive needs: No Hearing needs: No Vision needs: No Review of Systems Const All systems reviewed & are unremarkable except as noted in HPI and below ENT Denies dizziness Card Denies chest pain, Denies chest pain at rest, Denies chest pain with activity, Denies rapid heart rate, Denies pedal edema, Denies edema, Denies leg edema, Denies lightheadedness, Denies palpitations, Reports dyspnea, Reports dyspnea on exertion and Denies orthopnea Resp Denies cough, Reports dyspnea and Reports dyspnea on exertion GI Denies hematochezia and Denies change in stool character Musc Denies abnormal gait, Denies muscle cramps, Denies muscle weakness, Denies numbness, Denies radiating pain into limb, Denies stiffness and Denies tingling Neuro Denies abnormal gait, Denies dizziness, Denies numbness and Denies tingling Endo Denies palpitations Physical Exam Vital Signs: Last Vital Signs Pulse 68 06/10/24 08:14 BP 114/60 06/10/24 08:14 BMI result Body Mass Index 27.3 Const General: cooperative, healthy appearing, comfortable and no acute distress Orientation/consciousness: patient oriented x3 Neck Neck: Yes normal visual inspection Resp Effort & Inspection: normal respiratory effort Auscultation: clear to auscultation bilaterally, no crackles, no rales, no rhonchi and no wheezes Cardio Jugular venous distension: no JVD Rate: regular rate Rhythm: regular rhythm Heart sounds: S1 normal heart sound present, S2 normal heart sound present, no murmurs and no rubs Neuro General: patient oriented x3 Extrem General: Yes normal to inspection Psych Appearance: grossly normal Mental Status: mental status grossly normal Speech and movement: Normal speech and movement present Assessment & Plan Assessment & Plan (1) JULIEN (dyspnea on exertion): Comment: Dyspnea on exertion is mild, as long as he does not climb stairs or walk up [place]. Code(s): R06.00 - Dyspnea, unspecified Category: Medical Plan: History of COPD. Patient reports chronic shortness of breath with exertion. He was evaluated for any cardiac reason contributing to his shortness of breath. A pharmacological nuclear stress test was done 05/04/2021 showing no evidence of infarct or ischemia, EF mildly reduced. An echocardiogram done 03/23/2021 shows normal EF, moderate LVH, moderate dilated left atrium, normal valves. He continued to have symptoms and then underwent a CTA of the coronary arteries on 11/16/2022 which showed nonobstructive coronary artery disease, moderate proximal LAD stenosis 50-60%, mid LAD 25%, 1st OM less than 50%. This degree of coronary artery disease should not cause his shortness of breath. Most recent echo 07/21/23 showed EF 57%, moderate LVH, severe septal asymmetric hypertrophy without mention of LV outflow obstruction or gradient. On exam he does not have any signs of heart failure/fluid overload. His blood pressure is well cont rolled. He tells me he is active during the day and does gardening when the weather permits. His shortness of breath symptom is most likely related to his COPD and deconditioning. Signs and symptoms of angina reviewed. Cardiology follow-up for re-evaluation in 4-5 months, sooner if needed. (2) COPD (chronic obstructive pulmonary disease): Comment: He does have chronic obstructive pulmonary disease for past many years, it is staying very stable. TX: Stiolto 2 inhalation ONCE A DAY and albuterol HFA 2 puffs Q 4-6 hours only p.r.n.. Code(s): J44.9 - Chronic obstructive pulmonary disease, unspecified Category: Medical Plan: Follows with pulmonology (3) Hypertension: Code(s): I10 - Essential (primary) hypertension Category: Medical Plan: His echo shows moderate LVH, severe septal asymmetric hypertrophy. The importance of very good blood pressure control reviewed with him. Blood pressure good at present time. Will continue on current lisinopril. Labs done 07/21/2023 showed potassium 3.8, creatinine 0.86. Orders for fasting labs entered. Instructed to obtain with in the next few weeks. (4) CAD (coronary artery disease): Code(s): I25.10 - Atherosclerotic heart disease of [place] coronary artery without angina pectoris Category: Medical Plan: CTA of the coronary arteries done last year, details as above. Mild to at most moderate degree of CAD. No clear anginal symptoms at this time. Continue aspirin, rosuvastatin with LDL goal less than 70, amlodipine. Continue lisinopril for blood pressure control. Emergency care if ever needed for any concerning symptoms. (5) LVH (left ventricular hypertrophy): Code(s): I51.7 - Cardiomegaly Category: Medical Plan: Moderate LVH on last echo (6) Asymmetric septal hypertrophy: Code(s): I42.2 - Other hypertrophic cardiomyopathy Category: Medical Plan: Severe asymmetric septal hypertrophy seen on last echo. No mention of outflow obstruction on echocardiogram. Blood pressure is well controlled. He has some shortness of breath which has been chronic. No signs of heart failure on exam. Plan Time spent on chart review, documentation, interview and assessment Orders: Orders Comprehensive [place]. Panel Fast Today I25.10 - Atherosclerotic heart disease of [place] coronary artery without angina pectoris Lipid Panel Today I25.10 - Atherosclerotic heart disease of [place] coronary artery without angina pectoris Complete Blood Count Auto Diff Today I25.10 - Atherosclerotic heart disease of [place] coronary artery without angina pectoris Coding Level of Care Code Est Pt Level 4 (32452) Diagnoses JULIEN (dyspnea on exertion) R06.00 COPD (chronic obstructive pulmonary disease) J44.9 Hypertension I10 CAD (coronary artery disease) I25.10 LVH (left ventricular hypertrophy) I51.7 Asymmetric septal hypertrophy I42.2 Time Spent (min) 30
== END 2024-06-10 08:45 | disposition home or self-care (01) ==
PROVIDERS: PCP Internal Medicine; Visit Provider Nurse Practitioner Family
DX: R06.00 Dyspnea, unspecified (principal); J44.9 Chronic obstructive pulmonary disease, unspecified; I10 Essential (primary) hypertension; I25.10 Atherosclerotic heart disease of native coronary artery without angina pectoris; I51.7 Cardiomegaly; I42.2 Other hypertrophic cardiomyopathy
CPT/HCPCS: 99214

== ENCOUNTER → 2024-06-10 08:07 | Outpatient (BNVA) | payer MEDICARE, MEDICAID, SELFPAY | PROVIDERS: PCP Internal Medicine; Visit Provider Nurse Practitioner Family | DX: I10 Essential (primary) hypertension (principal); I25.10 Atherosclerotic heart disease of native coronary artery without angina pectoris; I51.7 Cardiomegaly; I42.2 Other hypertrophic cardiomyopathy; E78.5 Hyperlipidemia, unspecified; R06.00 Dyspnea, unspecified; J44.9 Chronic obstructive pulmonary disease, unspecified | CPT/HCPCS: 99212 ==

== ENCOUNTER 2024-06-14 08:14 | Outpatient (AMB) | payer MEDICARE, MEDICAID, SELFPAY ==
[2024-06-14 08:16] VITALS: BP 118/74; PULSE 72; O2SAT 97; BMI 27.7
--- NOTE | 2024-06-14 08:16 | A.OFFVIS_ITS ---
Intake Vital Signs 06/14/24 08:16 Height 6 ft Weight 204 lb BMI 27.7 BP 118/74 Blood Pressure Location Rt brachial Position Sitting Pulse 72 Pulse Source Pulse Oximeter Pulse Oximetry (%) 97 Oxygen Delivery Method Room Air Intake Visit Reasons: SWV Allergies No Known Allergies [No Known Allergies*] Allergy (Verified 06/14/24 08:17) Medication List - Last Reconciled 06/14/24 by Gifty Frankel MD acetaminophen (Tylenol) 650 mg PO Q6H PRN amlodipine 2.5 mg PO DAILY aspirin (Enteric Coated Aspirin) 81 mg PO DAILY azathioprine 50 mg PO DAILY clotrimazole-betamethasone 1-0.05 % 1 appl topical DAILY PRN glycopyrrolate-formoterol 9-4.8 mcg (Bevespi Aerosphere) 2 puffs inhalation BID 30 days levothyroxine 50 mcg PO DAILY lisinopril 20 mg PO DAILY multivitamin 1 cap PO DAILY nitroglycerin 0.4 mg sublingual Q5M PRN omeprazole 20 mg PO DAILY prednisone 2.5 mg PO BEDTIME pyridostigmine bromide 60 mg PO TID rosuvastatin 5 mg PO DAILY 90 days Ventolin HFA 90 mcg/actuation (albuterol sulfate) 2 puffs inhalation Q4-6H PRN NS HPI SWV HPI Details Initiated the conversation about Advanced Directives. Advanced Directives help? patients prepare for current and future decisions about their medical treatment? and place of care. Discussed with patient that it is a process where a patients? current condition and prognosis are reviewed, their wishes for information? regarding their illness are elicited, and likely medical dilemmas are presented? and options discussed. The form can be amended as needed, reviewed yearly and? make changes as needed IPPE/AWV ? year old presents? for her ? Annual? Wellness Visit, initial visit.? Medical / Social History Reviewed? Past Medical History ?Yes? . ? [place]? of Care / Care Team list updated ?Yes . ? Surgical/Hospitalization? History ?Yes . ? Current Medications? (including OTC and supplements) ?Yes . ? Family History ?Yes? . ? Tobacco? Control form ?Yes . ? AUDIT-C (Alcohol use) form? ?Yes . ? Illicit drug use in Social? History ?Yes . ? Current diagnosis of? depression? ?No ? Appropriate PHQ2/PHQ9? completed ?Yes . ? Data entered by ?Medical? Drum Dyeing Machine Operator and reviewed by provider ? Fall Risk ? Fall? History? Have you had any falls with? injury in the past year? ?No . ? Have you had two or more? falls in the past year? ?No . ? Fall Risk Assessment: ?No? falls in the past year . ? HRA filled out by? the patient, reviewed by Provider and scanned. ? IPPE/AWV ? Balance? [place]? ?Yes . ? Tandem? walk ?Yes . ? Walk and? Turn ?Yes . ? Rise from? sit to stand ?Yes . ?Vision? Corrective? lens ?Yes ? Vision? screen ? Up-to-date, has an appointment [] for vision? screening and glaucoma screening ?Hearing? Whisper? test ?pass .? Initiated the conversation about Advanced Directives. Advanced Directives help? patients prepare for current and future decisions about their medical treatment? and place of care. Discussed with patient that it is a process where a patients? current condition and prognosis are reviewed, their wishes for information? regarding their illness are elicited, and likely medical dilemmas are presented? and options discussed. The form can be amended as needed, reviewed yearly and? make changes as needed Written? Plan?Completed. See Patient? Documents. 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) Back pain Arthritis JULIEN (dyspnea on exertion) Disc degeneration, lumbar Hyperglycemia Abdominal pain Pulmonary nodule Hyperlipidemia Multinodular thyroid COPD (chronic obstructive pulmonary disease) Myasthenia gravis Scoliosis Spondylosis of lumbosacral spine with radiculopathy Degenerative disc disease, lumbar Hypothyroid Leg cramps Emphysema of lung Iron deficiency anemia Osteoarthritis Diastolic dysfunction Hypertension Incomplete emptying of bladder due to benign prostatic hyperplasia Nocturia associated with benign prostatic hyperplasia BPH loc w urin obs/LUTS Surgical History History of right inguinal hernia repair (~10/31/23) History of carpal tunnel surgery Hx of hand surgery History of left inguinal hernia repair S/P insertion of spinal cord stimulator History of colonoscopy History of lung surgery (~11/2020) History of total right hip arthroplasty (~02/2018) History of hydrocelectomy Hx of tonsillectomy Family History Father No problems noted. Mother No problems noted. Social History Household Members: Spouse Household Members Other:: spouse has dementia Housing: House Are you a primary career development coordinator/teacher to a significant other at home: Yes (-has dementia) Do you presently have visiting nurse or other home services: No Alcohol intake: never Patient Tobacco Use Status: Never used Tobacco e-Cigarette/Vaping Use: Never Used Second Hand Smoke Exposure: No service: No Current occupational status: retired Current occupation: right handed Cognitive needs: No Hearing needs: No Vision needs: No Questionnaire Medicare Wellness Checkup [age] What gender do you identify with?: male During the past 4 weeks, how much have you been bothered by emotional problems such as feeling anxious, depressed, irritable, sad or downhearted, and blue?: slightly During the past 4 weeks, has your physical & emotional health limited your social activities with family, friends, neighbors, or groups?: slightly During the past 4 weeks, how much bodily pain have you generally had?: moderate pain During the past 4 weeks, was someone available to help you if you needed & wanted help?: yes, some During the past 4 weeks, what was the hardest physical activity you could do for at least 2 minutes?: moderate Can you get to places out of walking distance without help? (For eg., can you travel alone on buses, taxis or drive your car?): No Can you go shopping for groceries or clothes without someone's help?: Yes Can you prepare your own meals?: Yes Can you do your housework without help?: Yes Because of any health problems, do you need the help of another person with your personal care needs such as eating, bathing, dressing or getting around the house?: No Can you handle your own money without help?: Yes During the past 4 weeks, how would you rate your health in general?: fair During the past 4 weeks how have things been going for you?: good & bad parts about equal Are you having difficulties driving your car?: no Do you always fasten your seat belt when you are in a car?: yes, usually During past 4 weeks, have you been bothered by the following: never: Falling or dizzy when standing up and Problems using the telephone?, seldom: Trouble eating well? and sometimes: Sexual problems?, Teeth or denture problems? and Tiredness or fatigue? Have you fallen 2 or more times in the past year?: No Are you afraid of falling?: No Are you a smoker?: no During the past 4 weeks, how many drinks of wine, beer, or other alcoholic beverages did you have?: no alcohol at all Do you exercise for about 20 minutes 3 or more times a week?: yes, most of the time Have you been given information to help with the following?: yes: Hazards in your house that might hurt you? and yes: Keeping track of your medications? How often do you have trouble taking medicines the way you have been told to take them?: I always take medicine as prescribed How confident are you that you can control & manage most of your health problems?: somewhat confident What is your race?: White Mini Mental State Exam (MMSE) Orientation What is the (year) (season) (date) (day) (month)?: year, season, date, day and month Where are we (state) (county) (town or city) (hospital) (floor)?: state, county, town or city, hospital/clinic and floor Attention & Calculation (CHOOSE ONE) Spell WORLD backwards (DLROW): 5 letters Recall Ask patient to repeat the 3 items from question #3.: object 1, object 2 and object 3 Language Show patient a wristwatch & ask what it is. Repeat for pencil.: watch and pencil Ask the patient to repeat the phrase 'No ifs, ands, or buts' after you.: correct Ask the patient to 'take a piece of paper with their right hand' 'fold paper in half' 'place paper on floor': take paper in right hand and fold paper in half Print the sentence 'CLOSE YOUR EYES' on a piece. If patient actually closes eyes then score.: followed written direction Give patient a blank piece of paper & ask to write a sentence. Score if it contains a noun & verb.: sentence contains subject and verb Score Score: 25 Activity of Daily Living Bathing - sponge bath, tub bath or shower: receives no assistance (gets in/out by self, if usual bathing means Dressing - getting clothes from closets & drawers, including inner/outer g arments & fasteners.: gets clothes & gets completely dressed without help Toileting - going to the 'toilet room' for urine/bowel elimination & cleaning self/arranging clothes: goes to toilet room, cleans self, arranges clothes without help Transfer: moves in & out of bed and chair without help (may use support object) Continence: controls urination/bowel movements completely by self Feeding: feeds self without help Total Score: 0 Information obtained from: patient Using telephone: independent Traveling: independent Shopping: independent Preparing meals: independent Housework: independent Taking medicine: independent Managing money: independent PHQ-9 Over the last 2 weeks, how often have you been bothered by any of the following problems? 1. Little interest or pleasure in doing things: not at all 2. Feeling down, depressed, or hopeless: not at all 3. Trouble falling or staying asleep, or sleeping too much: several days 4. Feeling tired or having little energy: several days 5. Poor appetite or overeating: not at all 6. Feeling bad about yourself - or that you are a failure or have let yourself or your family down: not at all 7. Trouble concentrating on things, such as reading the newspaper or watching television: not at all 8. Moving or speaking so slowly that other people could have noticed. Or the opposite - being so fidgety or restless that you have been moving around a lot more than usual: not at all 9. Thoughts that you would be better off or of hurting yourself in some way: not at all Total score: 2 Depression Screening Interpretation: Negative Depression Screening Done: Yes 94207 - PHQ-9 Billing: Yes Source: Developed by Drs. Patrice Kay, Lesley Calderón, Duran Barrios and colleagues, with an educational danica from [employer]. Review of Systems Const All systems reviewed & are unremarkable except as noted in HPI and below Reports no additional complaints Eyes Reports no additional complaints ENT Reports no additional complaints Card Reports no additional complaints GI Reports no additional complaints Reports no additional complaints Physical Exam Vital Signs: Last Vital Signs Pulse 72 06/14/24 08:16 BP 118/74 06/14/24 08:16 Pulse Ox 97 06/14/24 08:16 Oxygen Delivery Method Room Air 06/14/24 08:16 BMI result Body Mass Index 27.7 Const General: no acute distress HEENT Head: Yes normal to inspection Ears: hearing grossly normal bilaterally Neck Neck: Yes no lymphadenopathy and Yes supple Resp Effort & Inspection: normal respiratory effort Auscultation: clear to auscultation bilaterally Cardio Rhythm: regular rhythm Heart sounds: S1 normal heart sound present and S2 normal heart sound present GI Inspection: Yes normal to inspection Palpation (GI): Soft to palpation Percussion: Yes normal to percussion Auscultation: normal bowel sounds Extrem General: Yes no clubbing, cyanosis or edema Assessment & Plan Assessment & Plan (1) Hypothyroid: Code(s): E03.9 - Hypothyroidism, unspecified Qualifiers: Hypothyroidism type: unspecified Qualified Code(s): E03.9 - Hypothyroidism, unspecified Plan: Continue levothyroxine patient will have a fasting blood work today including TSH (2) COPD (chronic obstructive pulmonary disease): Comment: HE HAS MODERATELY SEVERE CHRONIC OBSTRUCTIVE PULMONARY DISORDER. WITH HIS CURRENT MEDICAL REGIMEN HIS PULMONARY STATUS IS STAYING STABLE. Code(s): J44.9 - Chronic obstructive pulmonary disease, unspecified Plan: Continue current inhalers follow-up with pulmonology (3) Hyperlipidemia: Code(s): E78.5 - Hyperlipidemia, unspecified Plan: cont Crestor (4) Annual physical exam: Code(s): Z00.00 - Encounter for general adult medical examination without abnormal findings Plan: Well-balanced diet regular physical activity discussed with the patient. He is up-to-date with colonoscopy. (5) Myasthenia gravis: Comment: involving eyelids, right facial muscles & lower extremities-follows w/Dr. Saez Code(s): G70.00 - Myasthenia gravis without (acute) exacerbation Plan: This has follow-up with Neurology continue current medications Orders: Orders Lipid Panel Today E03.9 - Hypothyroidism, unspecified, E78.5 - Hyperlipidemia, unspecified, J44.9 - Chronic obstructive pulmonary disease, unspecified, Z00.00 - Encounter for general adult medical examination without abnormal findings Comprehensive [place]. Panel Fast Today E03.9 - Hypothyroidism, unspecified, E78.5 - Hyperlipidemia, unspecified, J44.9 - Chronic obstructive pulmonary disease, unspecified, Z00.00 - Encounter for general adult medical examination without abnormal findings Complete Blood Count Auto Diff Today E03.9 - Hypothyroidism, unspecified, E78.5 - Hyperlipidemia, unspecified, J44.9 - Chronic obstructive pulmonary disease, unspecified, Z00.00 - Encounter for general adult medical examination without abnormal findings TSH reflex Free T4 Today E03.9 - Hypothyroidism, unspecified, E78.5 - Hyperlipidemia, unspecified, J44.9 - Chronic obstructive pulmonary disease, unspecified, Z00.00 - Encounter for general adult medical examination without abnormal findings Quality Reporting (2019) Depression/Bipolar (159/160/161/177) PHQ-9: Total score: 2 Coding Level of Care Code Medicare Subsequent (G0439) Diagnoses Hypothyroidism, unspecified type E03.9 Hypothyroidism type: unspecified COPD (chronic obstructive pulmonary disease) J44.9 Hyperlipidemia E78.5 Annual physical exam Z00.00 Myasthenia gravis G70.00 CPT Codes Advance Care Planning - Advance Care Planning discussion: On file, no changes ([id number]) Advance Care Planning - Time spent: 1-15 minutes, on File ([id number]) Advance Care Planning Advance Care Planning discussion: On file, no changes Forms completed: Health Care Proxy Time spent: 1-15 minutes, on File
== END 2024-06-14 09:25 | disposition home or self-care (01) ==
PROVIDERS: PCP Internal Medicine; Visit Provider Internal Medicine
DX: Z00.00 Encounter for general adult medical examination without abnormal findings (principal); J44.9 Chronic obstructive pulmonary disease, unspecified; G70.00 Myasthenia gravis without (acute) exacerbation; E03.9 Hypothyroidism, unspecified; E78.5 Hyperlipidemia, unspecified
CPT/HCPCS: 1123F; G0439

== ENCOUNTER 2024-06-14 08:52 | Outpatient (REF) | payer MEDICARE, MEDICAID, SELFPAY ==
[2024-06-14 10:02] LABS: MANUAL DIFF FLAG NO
[2024-06-14 10:05] LABS: Basophils Percent Auto 0.5 % (0-2); Eosinophils Absolute Auto 0.1 X10*3/uL (0.0-0.4); Eosinophils Percent Auto 1.6 % (0-4); Hematocrit 41.8 % (42.0-52.0); Imm Gran Abs Auto 0.02 X10*3/uL (0.00-0.03); Imm Gran Pct Auto 0.3 % (0.0-0.4); Lymphocytes Absolute Auto 0.8 X10*3/uL (1.2-4.9); Lymphocytes Percent Auto 10.6 % (20-40); Mean Corpuscular HGB Conc 33.5 g/dl (31.0-36.0); Mean Corpuscular Volume 89.7 fL (80.0-98.0); Mean Platelet Volume 10.4 fL (9.4-12.4); Monocytes Absolute Auto 0.6 X10*3/uL (0.1-1.2); Monocytes Percent Auto 7.3 % (2-11); Neutrophils Absolute Auto 6.2 x10*3/uL (2.0-8.3); Neutrophils Percent Auto 79.7 % (45-73); Platelet Count 223 X10*3/uL (160-400); Red Blood Count 4.66 X10*6/uL (4.60-5.80); Red Cell Distribution Width 13.3 % (11.0-16.0); White Blood Count 7.7 X10*3/uL (4.8-10.8)
[2024-06-14 11:08] LABS: Alanine Aminotransferase 26 U/L (0-40); Albumin Level 4.2 g/dL (3.5-5.0); Alkaline Phosphatase 73 U/L (39-117); Anion Gap 13 (12-20); Aspartate Amino Transferase 28 U/L (5-37); Bilirubin Total 0.5 mg/dL (0.0-1.0); Blood Urea Nitrogen 19 mg/dL (9-16); Calcium 9.3 mg/dL (8.4-10.2); Carbon Dioxide 22 mmol/L (22-29); Chloride 108 mmol/L (96-108); Cholesterol 92 mg/dL (<200); Estimated Glomerular Filt Rate > 60; Glucose Fasting 97 mg/dL (60-99); HDL Cholesterol 50 mg/dL (>40); LDL Cholesterol Calculated 35 mg/dL (<100); Potassium 4.2 mmol/L (3.3-5.1); Sodium 139 mmol/L (135-145); Total Protein 6.9 g/dL (6.5-8.0); Triglycerides 37 mg/dL (<150)
[2024-06-14 11:16] LABS: TSH reflex Free T4 2.14 uIU/mL (0.32-4.0)
== END 2024-06-14 08:53 | disposition home or self-care (01) ==
LOC: HO.HMGCLDS 08:52
PROVIDERS: PCP Internal Medicine; Referring Provider Nurse Practitioner Family; Visit Provider Internal Medicine
DX: Z00.00 Encounter for general adult medical examination without abnormal findings (principal); I25.10 Atherosclerotic heart disease of native coronary artery without angina pectoris; J44.9 Chronic obstructive pulmonary disease, unspecified; E03.9 Hypothyroidism, unspecified; E78.5 Hyperlipidemia, unspecified
CPT/HCPCS: 36415; 80053; 80061; 84443; 85025

== ENCOUNTER 2024-06-21 10:43 | Outpatient (AMB) | payer MEDICARE, MEDICAID, SELFPAY ==
[2024-06-21 10:44] VITALS: BP 120/66; PULSE 61; BMI 27.4
--- NOTE | 2024-06-21 10:44 | MHC.OFFVIS ---
Vital Signs 06/21/24 10:44 Height 6 ft Weight 201 lb 11.567 oz BMI 27.4 BP 120/66 Blood Pressure Location Lt brachial Position Sitting Pulse 61 Pulse Source Pulse Oximeter Intake Visit Reasons: NTMNG/CONFIRMED Intake Note: Patient present today for NTMNG office visit. Computer Sciences Professor Required: No Accompanied by: Self / Same As Patient Allergies No Known Allergies [No Known Allergies*] Allergy (Verified 06/21/24 10:47) Medication List - Last Reconciled 06/21/24 by Ashly Montemayor MD acetaminophen (Tylenol) 650 mg PO Q6H PRN amlodipine 2.5 mg PO DAILY aspirin (Enteric Coated Aspirin) 81 mg PO DAILY azathioprine 50 mg PO DAILY clotrimazole-betamethasone 1-0.05 % 1 appl topical DAILY PRN glycopyrrolate-formoterol 9-4.8 mcg (Bevespi Aerosphere) 2 puffs inhalation BID 30 days levothyroxine 50 mcg PO DAILY lisinopril 20 mg PO DAILY multivitamin 1 cap PO DAILY nitroglycerin 0.4 mg sublingual Q5M PRN omeprazole 20 mg PO DAILY prednisone 2.5 mg PO BEDTIME pyridostigmine bromide 60 mg PO TID rosuvastatin 5 mg PO DAILY 90 days Ventolin HFA 90 mcg/actuation (albuterol sulfate) 2 puffs inhalation Q4-6H PRN NS HPI Comments Details: 74 YO Male, who is seen in F/U for a thyroid nodule and hypothyroidism. He was previously seeing Dr. Hanna. He remains on Levothyroxine 50 mcg PO daily. Taking it appropriately. He has a history of a dominant 1.6 cm L sided thyroid nodule and another right 1.3 cm nodule which has increased in size from 0.7 cm maximum dimension to 1.3 cm from July 28 to 06/2023.. He underwent FNA biopsy of his L midpole 1.6 cm nodule 11/29/18. Cytology revealed bethesda category III, atypia of undetermined significance. This was sent for [employer] genomic sequence pest control worker testing, which was benign. He opted for surveillance of this nodule with yearly US. He had a repeat thyroid US yearly since that time with no significant change. No compressive symptoms. Last thyroid ultrasound was from 06/25/2023, I reviewed the images and the results are mentioned below. He denies any other symptoms of hyper or hypothyroidism currently. Review of systems Constitutional: no fevers, chills or weight loss HEENT: no changes in vision Cardiac: No chest pain, discomfort or palpitations. Pulmonary: No SOB GI:No abdominal pain, no nausea or vomiting, no anorexia, no blood in stool Physical exam General: sitting comfortably in bed in no acute distress HEENT: normocephalic/atraumatic Neck: supple, symmetrical, no thyromegaly , no dorsocervical or supraclavicular fat pads Cardiac: normal heart sounds Pulm: normal breath sounds B/L, no added breath sounds Abd: not distended, no tenderness Extremities: no edema, no signs of myxedema Neuro: AAO x3, Speech: normal, no facial droop, moving all 4 extremities . 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) Back pain Arthritis JULIEN (dyspnea on exertion) Disc degeneration, lumbar Hyperglycemia Abdominal pain Pulmonary nodule Hyperlipidemia COPD (chronic obstructive pulmonary disease) Myasthenia gravis Scoliosis Spondylosis of lumbosacral spine with radiculopathy Degenerative disc disease, lumbar Hypothyroid Leg cramps Emphysema of lung Iron deficiency anemia Osteoarthritis Diastolic dysfunction Hypertension Incomplete emptying of bladder due to benign prostatic hyperplasia Nocturia associated with benign prostatic hyperplasia BPH loc w urin obs/LUTS Surgical History History of right inguinal hernia repair (~10/31/23) History of carpal tunnel surgery Hx of hand surgery History of left inguinal hernia repair S/P insertion of spinal cord stimulator History of colonoscopy History of lung surgery (~11/2020) History of total right hip arthroplasty (~02/2018) History of hydrocelectomy Hx of tonsillectomy Family History Father No problems noted. Mother No problems noted. Social History Household Members: Spouse Household Members Other:: spouse has dementia Housing: House Are you a primary health care marketing specialist to a significant other at home: Yes (-has dementia) Do you presently have visiting nurse or other home services: No Alcohol intake: never Patient Tobacco Use Status: Never used Tobacco e-Cigarette/Vaping Use: Never Used Second Hand Smoke Exposure: No service: No Current occupational status: retired Current occupation: right handed Cognitive needs: No Hearing needs: No Vision needs: No Physical Exam Vital Signs: Last Vital Signs Pulse 61 06/21/24 10:44 BP 120/66 06/21/24 10:44 BMI result Body Mass Index 27.4 Results Reviewed Results Reviewed: Laboratory Tests 06/14/24 08:56 TSH 2.14 US THYROID 06/28 CLINICAL INFORMATION: Nontoxic multinodular goiter. COMPARISON: Ultrasound thyroid 08/01/2022 and 12/07/2021. TECHNIQUE: Linear transducer castanon-scale and color Doppler examination with attention to the region of the thyroid. FINDINGS: SIZE: Measurements of the thyroid lobes and nodules are given in sagittal, anteroposterior and transverse dimensions respectively. Right Thyroid Lobe: 4.8 x 1.9 x 1.8 cm, volume 8.6 mL. Previously 4.4 x 1.7 x 1.9 cm, volume 7.4 mL. Parenchyma: The gland echotexture is homogeneous. Thyroid vascularity is normal. Left Thyroid Lobe: 4.3 x 1.5 x 1.3 cm, volume 4.4 mL. Previously 4.0 x 1.5 x 1.4 cm, volume 4.4 mL. Parenchyma: The gland echotexture is mildly heterogeneous. Thyroid vascularity is normal. Isthmus: 0.3 cm in maximum AP dimension. Previously 0.3 cm. Estimated total number of nodules greater than or equal to 1 cm: 2. Foreign Service Teacher nodules are described as follows: 1. Location: Left mid/inferior. Size: 1.1 x 0.8 x 0.8 cm, volume 0.32 mL. Previously: 1.1 x 0.7 x 0.8 cm, volume 0.32 mL. Nodule characteristics: Composition: Solid (2). Echogenicity: Isoechoic (1). Shape: Taller than wide (3). Margins: Smooth (0). Echogenic Foci: Macrocalcifications (1). ACR TI-RADS total points: 7 Previous: 6 ACR TI-RADS category: 5 Previous: 4 Significant change in size (>/= 20% in 2 dimensions and minimal increase of 2 mm or 50% or greater increase in volume): None Change in features: Olegario calcific patient is evident Change in ACR TI-RADS risk category: 5 2. Location: Right superior. Size: 1.3 x 0.7 x 1.0 cm, volume 0.49 mL. Previously: 0.6 x 0.7 x 0.6 cm, volume 0.13 mL. Nodule characteristics: Composition: Solid (2). Echogenicity: Isoechoic (1). Shape: Not taller than wide (0). Margins: Smooth (0). Echogenic Foci: None (0). ACR TI-RADS total points: 3 Previous: 3 ACR TI-RADS category: 3 Previous: 3 Significant change in size (>/= 20% in 2 dimensions and minimal increase of 2 mm or 50% or greater increase in volume): 1 Change in features: None Change in ACR TI-RADS risk category: None NODES: No lymphadenopathy is seen in the tissue surrounding the thyroid gland. US/US thyroid IMPRESSION: Dominant left-sided thyroid nodule with macrocalcifications. This is a TR 5 lesion. This has been previously biopsied. Continue surveillance imaging recommended. Assessment & Plan Assessment & Plan (1) Hypothyroid: Code(s): E03.9 - Hypothyroidism, unspecified Category: Medical Qualifiers: Hypothyroidism type: unspecified Qualified Code(s): E03.9 - Hypothyroidism, unspecified Plan: Biochemically Euthyroid. TSH 2.14 normal from June 29. Plan: -continue levothyroxine 50 mcg daily (2) Multinodular thyroid: Code(s): E04.2 - Nontoxic multinodular goiter Category: Medical Plan: History of thyroid nodules at least dating back to 2019. FNA 11/24 of left dominant in 1.6 cm thyroid nodule was AUS, with benign Afirma. Most recent thyroid ultrasound from 06/25/2023 showed stable size of the left dominant nodule now measuring 1.1 cm in the maximum dimension. However there is another right upper lobe nodule which has increased in size now measuring 1.3 cm in the largest dimension. This does not meet criteria for FNA, however we will repeat ultrasound this year to see if it has grown further in size. Plan: -ordered thyroid ultrasound -if nodules remain stable on this ultrasound, we will see him back in 1 year Orders: Orders TSH reflex Free T4 1 Year E03.9 - Hypothyroidism, unspecified US thyroid Today E04.2 - Nontoxic multinodular goiter Patient Instructions: do thyroid ultrasound Follow up in 1 year, do labs before next appointment Coding Level of Care Code Est Pt Level 4 (61795) Diagnoses Hypothyroidism, unspecified type E03.9 Hypothyroidism type: unspecified Multinodular thyroid E04.2
== END 2024-06-21 11:12 | disposition home or self-care (01) ==
PROVIDERS: PCP Internal Medicine; Visit Provider Student in an Organized Health Care Education/Training Program
DX: E03.9 Hypothyroidism, unspecified (principal); E04.2 Nontoxic multinodular goiter
CPT/HCPCS: 99214

== ENCOUNTER → 2024-06-21 10:43 | Outpatient (BNVA) | payer MEDICARE, MEDICAID, SELFPAY | PROVIDERS: PCP Internal Medicine; Visit Provider Student in an Organized Health Care Education/Training Program | DX: E03.9 Hypothyroidism, unspecified (principal); E04.2 Nontoxic multinodular goiter | CPT/HCPCS: 99212 ==

== ENCOUNTER 2024-07-09 11:08 | Outpatient (REF) | payer MEDICARE, MEDICAID, SELFPAY ==
--- NOTE | ~2024-07-09 | US_ITS ---
EXAMINATION: US THYROID CLINICAL INFORMATION: Nontoxic multinodular goiter. COMPARISON: Thyroid ultrasound 07/05/2023 and 08/01/2022. Ultrasound-guided thyroid biopsy 11/29/2018. TECHNIQUE: Linear transducer grayscale and color Doppler examination with attention to the region of the thyroid. FINDINGS: SIZE: Measurements of the thyroid lobes and nodules are given in sagittal, anteroposterior and transverse dimensions respectively. Right Thyroid Lobe: 4.7 x 1.9 x 1.8 cm, volume 8.4 mL. Previously 4.8 x 1.9 x 1.8 cm, volume 8.6 mL. Parenchyma: The gland echotexture is homogeneous. Thyroid vascularity is normal. Left Thyroid Lobe: 4.4 x 1.4 x 1.7 cm, volume 5.5 mL. Previously 4.3 x 1.5 x 1.3 cm, volume 4.4 mL. Parenchyma: The gland echotexture is homogeneous. Thyroid vascularity is normal. Isthmus: 0.3 cm in maximum AP dimension. Previously 0.3 cm. Estimated total number of nodules greater than or equal to 1 cm: 0. [employer] nodules are described as follows: 1. Location: Left mid/lateral. Size: 0.7 x 0.7 x 0.7 cm, volume 0.2 mL. Previously: 1.1 x 0.8 x 0.8 cm, volume 0.3 mL. Nodule characteristics: Composition: Solid (2). Echogenicity: Very hypoechoic (3). Shape: Taller than wide (3). Margins: Smooth (0). Echogenic Foci: Punctate echogenic foci (3). ACR TI-RADS total points: 11 Previous: 7 ACR TI-RADS category: 5 Previous: 5 Significant change in size (>/= 20% in 2 dimensions and minimal increase of 2 mm or 50% or greater increase in volume): No Change in features: Yes Change in ACR TI-RADS risk category: No 2. Location: Right superior. Size: 0.9 x 0.7 x 0.7 cm, volume 0.3 mL. Previously: 1.3 x 0.7 x 1.0 cm, volume 0.5 mL. Nodule characteristics: Composition: Solid (2). Echogenicity: Isoechoic (1). Shape: Not taller than wide (0). Margins: Smooth (0). Echogenic Foci: None (0). ACR TI-RADS total points: 3 Previous: 3 ACR TI-RADS category: 3 Previous: 3 Significant change in size (>/= 20% in 2 dimensions and minimal increase of 2 mm or 50% or greater increase in volume): No Change in features: No Change in ACR TI-RADS risk category: No NODES: No lymphadenopathy is seen in the tissue surrounding the thyroid gland. US/US thyroid IMPRESSION: Small bilateral thyroid nodules are seen, as detailed. No specific imaging follow-up is recommended. ACR TI-RADS RECOMMENDATION REFERENCE: Ultrasound-guided fine-needle aspiration, follow up ultrasound, no further followup. * TR1 (0 point) and TR2 (2 points): No FNA or followup * TR3 (3 points): FNA if more than or equal to 2.5 cm in maximum dimension, follow up ultrasound in 1, 3 and 5 years if 1.5 to 2.4 cm in maximum dimension. * TR4 (4-6 points): FNA if more than or equal to 1.5 cm in maximum dimension, follow up ultrasound in 1, 2, 3 and 5 years if 1 to 1.4 cm in maximum dimension. * TR5 (more than or equal to 7 points): FNA if more than or equal to 1 cm in maximum dimension, follow up ultrasound every year for 5 years if 0.5 to 0.9 cm in maximum dimension. * TR3, TR4 or TR5 nodules that are below the size threshold for follow up receive no followup. Electronically signed by: Dhruv Reid MD 07/25/2024 03:22 PM EDT
== END 2024-07-09 11:09 | disposition home or self-care (01) ==
LOC: HO.US 11:08
PROVIDERS: PCP Internal Medicine; Visit Provider Student in an Organized Health Care Education/Training Program
DX: E04.2 Nontoxic multinodular goiter (principal)
CPT/HCPCS: 76536

== ENCOUNTER 2024-08-13 10:51 | Outpatient (AMB) | payer MEDICARE, MEDICAID, SELFPAY ==
--- NOTE | 2024-08-13 11:19 | MHC.OFFVIS ---
Intake Visit Reasons: Botox- follow up Intake Note: Patient is Present for Follow Up Botox (Botox 05/06/2024) Urology Medication:None Antibiotic Allergies: None Blood Thinners: Aspirin Patient reports that he does not feel that the Botox procedure was effective for him Reports that after the procedure he has a delayed start to urination PVR: 0 Environmental Compliance Officer Required: No Accompanied by: Self / Same As Patient Allergies No Known Allergies [No Known Allergies*] Allergy (Verified 08/13/24 11:21) HPI Comments Details: Olegario is a very pleasant male. He is a patient of Dr. Suazo. He is seen for the following urologic conditions - lower urinary tract symptoms - renal cyst Discussed possible InterStim Has stimulator for sciatica Underwent Botox 05/29 Does not think this was beneficial Still with nocturia 4-5 Discussed trial of combination amitriptyline and gabapentin Prescription provided 1 month follow-up Overactive bladder Cystoscopy 02/25 trabeculation with reduced stability open bladder neck Failed trial of tolterodine and oxybutynin, toviaz secondary to dry mouth and dry eyes Nocturia stabilized with imipramine over still getting up 5 times at night Lower urinary tract symptoms Current encounter for the follow-up of lower urinary tract symptoms - good response with finasteride daily for effective stream and emptying Current treatment includes medication - none Prostate Symptom Score 8/18 , Moderate (9-19), Bother 3. Symptoms include 8/18 , incomplete emptying, weak stream, nocturia (>2), and are progressing. Results from testing include cystoscopy high riding bladder neck (median bar) 07/24, 01/25 median bar with mild trabeculation renal/bladder us Yes date 07/04/2018 PVR 35 prostate size 45 PSA 02/22 1.2, 11/26 0.5 Prostate volume 30-50gm. 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) Back pain Arthritis JULIEN (dyspnea on exertion) Disc degeneration, lumbar Hyperglycemia Abdominal pain Pulmonary nodule Hyperlipidemia COPD (chronic obstructive pulmonary disease) Myasthenia gravis Scoliosis Spondylosis of lumbosacral spine with radiculopathy Degenerative disc disease, lumbar Hypothyroid Leg cramps Emphysema of lung Iron deficiency anemia Osteoarthritis Diastolic dysfunction Hypertension Incomplete emptying of bladder due to benign prostatic hyperplasia Nocturia associated with benign prostatic hyperplasia BPH loc w urin obs/LUTS Surgical History History of right inguinal hernia repair (~10/31/23) History of carpal tunnel surgery Hx of hand surgery History of left inguinal hernia repair S/P insertion of spinal cord stimulator History of colonoscopy History of lung surgery (~11/2020) History of total right hip arthroplasty (~02/2018) History of hydrocelectomy Hx of tonsillectomy Family History Father No problems noted. Mother No problems noted. Social History Household Members: Spouse Household Members Other:: spouse has dementia Housing: House Are you a primary career coordinator to a significant other at home: Yes (-has dementia) Do you presently have visiting nurse or other home services: No Alcohol intake: never Patient Tobacco Use Status: Never used Tobacco e-Cigarette/Vaping Use: Never Used Second Hand Smoke Exposure: No service: No Current occupational status: retired Current occupation: right handed Cognitive needs: No Hearing needs: No Vision needs: No Review of Systems Const Denies chills and Denies fever(s) Card Reports no additional complaints and Denies syncope Resp Denies cough GI Denies abdominal pain and Denies heartburn Reports as per HPI and Denies change in libido Neuro Denies syncope Psych Denies change in libido Endo Denies change in libido Physical Exam Const General: cooperative, healthy appearing, comfortable and no acute distress Orientation/consciousness: patient oriented x3 HEENT Face and sinus: Yes normal facial exam Mouth: moist mucous membranes Neck Neck: Yes normal visual inspection, Yes full ROM and Yes trachea midline Chest Chest palpation & inspection: normal inspection of the chest Resp Effort & Inspection: normal respiratory effort, able to speak in complete sentences and no respiratory distress GI Inspection: Yes normal to inspection Back/Spine/Pelvis Cervical Spine: normal cervical lordosis Thoracic/Lumbar Spine: thoracic and lumbar spine normal to inspection Skin General skin exam: no rashes or lesions noted Neuro General: patient oriented x3, gait normal, tone normal and moves all extremities Extrem General: Yes normal to inspection and Yes capillary refill normal Office Procedures Post Void Residual Post Residual Void Post Void Residual (PVR): 0 [id number]-[id number] Void Residual by ultrasound Assessment & Plan Assessment & Plan (1) Overactive bladder: Code(s): N32.81 - Overactive bladder Category: Medical Plan 1 month follow-up tele Orders: Orders AMB Post Void Residual by ultrasound Today N32.81 - Overactive bladder Medications: New amitriptyline 25 mg PO BEDTIME 30 days 30 tabs 0RF N32.81 - Overactive bladder gabapentin 300 mg PO BEDTIME 30 days 30 caps 0RF N32.81 - Overactive bladder, R23.2 - Flushing, T50.905A - Adverse effect of unspecified drugs, medicaments and biological substances, initial encounter Patient Instructions: Imaging studies, laboratory and physical exam results were discussed and reviewed in detail. No major barriers to patient understanding were identified. An opportunity to ask questions regarding the treatment plan was provided. All questions were answered. The patient expressed understanding and agreement with the above treatment plan. The patient is aware they should contact our office by phone for worsening of their current condition or the appearance of new urologic symptoms. Compliance is encouraged with any medications and followup testing that is ordered. It is a privilege to participate in the urologic care of your patient. If you have any questions or concerns regarding treatment for the above conditions, or other urologic issues, please do not hesitate to contact me. The office telephone contact is [phone]. This note is constructed using voice recognition software. While every effort has been made to ensure accuracy credit control officer errors may have been included. Yours sincerely, Dr Syed Adams MD, [facility] - Urology Providers of Expert, Compassionate Care for the Genitourinary System Coding Level of Care Code Est Pt Level 4 (98160) Diagnoses Overactive bladder N32.81 CPT Codes Post Residual Void - PVR CPT Code: 49895-Nrhv Void Residual by ultrasound ([id number])
== END 2024-08-13 11:55 | disposition home or self-care (01) ==
PROVIDERS: PCP Internal Medicine; Visit Provider Urology
DX: N32.81 Overactive bladder (principal)
CPT/HCPCS: 99214

== ENCOUNTER → 2024-08-13 10:51 | Outpatient (BNVA) | payer MEDICARE, MEDICAID, SELFPAY | PROVIDERS: PCP Internal Medicine; Visit Provider Urology | DX: N32.81 Overactive bladder (principal) | CPT/HCPCS: 51798; 99212 ==

== ENCOUNTER 2024-08-15 11:07 | Outpatient (AMB) | payer MEDICARE, MEDICAID, SELFPAY ==
[2024-08-15 11:17] VITALS: BP 130/68; PULSE 62; O2SAT 98; BMI 27.9
--- NOTE | 2024-08-15 11:17 | A.OFFVIS_ITS ---
Vital Signs 08/15/24 11:17 Height 6 ft Weight 206 lb BMI 27.9 BP 130/68 Blood Pressure Location Lt brachial Position Sitting Pulse 62 Pulse Source Pulse Oximeter Pulse Oximetry (%) 98 Oxygen Delivery Method Room Air Intake Visit Reasons: copd Intake Note: pt is here for follow up and he is short of breath if he walks over a 100 ft which makes him stop and rest, he had to stop in the parking lot half way through to get into the office, PLEASE SEND IN FOR BEVESPI, AND VENTOLIN. Systems Mechanic Required: No Allergies No Known Allergies [No Known Allergies*] Allergy (Verified 08/15/24 11:38) Medication List - Last Reconciled 08/15/24 by David Vizcaino MD acetaminophen (Tylenol) 650 mg PO Q6H PRN amitriptyline 25 mg PO BEDTIME 30 days amlodipine 2.5 mg PO DAILY aspirin (Enteric Coated Aspirin) 81 mg PO DAILY azathioprine 50 mg PO DAILY clotrimazole-betamethasone 1-0.05 % 1 appl topical DAILY PRN gabapentin 300 mg PO BEDTIME 30 days glycopyrrolate-formoterol 9-4.8 mcg (Bevespi Aerosphere) 2 puffs inhalation BID 30 days levothyroxine 50 mcg PO DAILY lisinopril 20 mg PO DAILY multivitamin 1 cap PO DAILY nitroglycerin 0.4 mg sublingual Q5M PRN omeprazole 20 mg PO DAILY prednisone 2.5 mg PO BEDTIME pyridostigmine bromide 60 mg PO TID rosuvastatin 5 mg PO DAILY 90 days Ventolin HFA 90 mcg/actuation (albuterol sulfate) 2 puffs inhalation Q4-6H PRN NS Do you need a note to return to daycare/school/sports/work: No HPI HPI copd: Details: Olegario Blackwood 74 years old gentleman is here for his follow-up for COPD, dyspnea on exertion, and mild intermittent cough. He say is as long as he uses Bevespi twice a day his cough and wheezing remains under control. However he does have shortness of breath on walking about half a block, and when coming from the parking lot to the office he had to stop 1 time. Olegario is suffers from myasthenia gravis, and treated with azathioprine as well as prednisone. Currently he takes prednisone 5 mg in a.m. and 2.5 mg in the afternoon. That total of 7.5 mg of prednisone keeps his lungs clear. He has multiple other problems such as low back pain sometime radiating into the right lower extremity. And that makes his walking difficult. He does use a cane when he walks outdoors. General muscle weakness due to myasthenia gravis, GERD symptoms,. 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) Back pain Arthritis JULIEN (dyspnea on exertion) Disc degeneration, lumbar Hyperglycemia Abdominal pain Pulmonary nodule Hyperlipidemia COPD (chronic obstructive pulmonary disease) Myasthenia gravis Scoliosis Spondylosis of lumbosacral spine with radiculopathy Degenerative disc disease, lumbar Hypothyroid Leg cramps Emphysema of lung Iron deficiency anemia Osteoarthritis Diastolic dysfunction Hypertension Incomplete emptying of bladder due to benign prostatic hyperplasia Nocturia associated with benign prostatic hyperplasia BPH loc w urin obs/LUTS Surgical History History of right inguinal hernia repair (~10/31/23) History of carpal tunnel surgery Hx of hand surgery History of left inguinal hernia repair S/P insertion of spinal cord stimulator History of colonoscopy History of lung surgery (~11/2020) History of total right hip arthroplasty (~02/2018) History of hydrocelectomy Hx of tonsillectomy Family History Father No problems noted. Mother No problems noted. Social History Household Members: Spouse Household Members Other:: spouse has dementia Housing: House Are you a primary critical care physician to a significant other at home: Yes (-has dementia) Do you presently have visiting nurse or other home services: No Alcohol intake: never Patient Tobacco Use Status: Never used Tobacco e-Cigarette/Vaping Use: Never Used Second Hand Smoke Exposure: No service: No Current occupational status: retired Current occupation: right handed Cognitive needs: No Hearing needs: No Vision needs: No Review of Systems Const All systems reviewed & are unremarkable except as noted in HPI and below Eyes Reports no additional complaints ENT Reports no additional complaints Card Denies chest pain, Denies irregular heart rhythm and Reports dyspnea on exertion Resp Reports as per HPI and Reports dyspnea on exertion GI Reports no additional complaints Reports no additional complaints Musc Reports back pain (Mild) Skin/Breast Reports system reviewed and no additional complaints, except as documented Psych Reports no additional complaints Endo Reports no additional complaints De/Lymph Reports no additional complaints Physical Exam Vital Signs: Last Vital Signs Pulse 62 08/15/24 11:17 BP 130/68 08/15/24 11:17 Pulse Ox 98 08/15/24 11:17 Oxygen Delivery Method Room Air 08/15/24 11:17 BMI result Body Mass Index 27.9 Const General: comfortable, no acute distress, alert and awake Orientation/consciousness: patient oriented x3 HEENT Head: Yes normal to inspection General nose exam: No nasal polyps present, No nasal discharge present and Other nasal findings present ( mild nasal congestion is noted) Face and sinus: Yes sinuses nontender Mouth: oropharynx normal Throat: Yes posterior oropharynx normal Eyes General: appearance normal, both eyes and all related structures Neck Neck: Yes normal visual inspection, Yes no lymphadenopathy, Yes trachea midline and Yes no JVD Thyroid: Thyroid normal Chest Chest palpation & inspection: normal inspection of the chest, normal palpation of entire chest wall and no tenderness Resp Other: Percussion note resonant, breath sounds are slightly diminished over the basilar areas. No wheezes , CREPS or rhonchi are heard. Cardio Palpation: PMI not normal (Not palpable) Rate: regular rate Rhythm: regular rhythm Heart sounds: no gallops and no murmurs GI Palpation (GI): Soft to palpation, nontender, No hepatosplenomegaly present, no masses and Other GI palpation findings present (Abdomen is moderately obese) Auscultation: normal bowel sounds Back/Spine/Pelvis Thoracic/Lumbar Spine: thoracic and lumbar spine normal to inspection Skin General skin exam: no rashes or lesions noted Neuro General: patient oriented x3 and no focal motor deficits Cranial nerves: Yes CN's II-XII intact bilaterally Extrem General: Yes normal to inspection, Yes no clubbing, cyanosis or edema and Yes no calf tenderness Psych Appearance: grossly normal and well kempt Speech and movement: Normal speech and movement present Assessment & Plan Assessment & Plan (1) COPD (chronic obstructive pulmonary disease): Comment: HE HAS MODERATELY SEVERE CHRONIC OBSTRUCTIVE PULMONARY DISORDER. WITH HIS CURRENT MEDICAL REGIMEN HIS PULMONARY STATUS IS STAYING STABLE. COMPLAINS OF INCREASED SHORTNESS OF BREATH AND HAS TO STOP AFTER WALKING ABOUT HALF A BLOCK. Code(s): J44.9 - Chronic obstructive pulmonary disease, unspecified Category: Medical Plan: HIS LUNGS ARE VERY CLEAR AND I EXPLAINED TO HIM THAT THE COPD SEEM TO BE UNDER GOOD CONTROL. I THINK HIS INCREASED SHORTNESS OF BREATH IS DUE TO DECONDITIONING AND MUSCULAR WEAKNESS. ADVISED TO CONTINUE USING BEVESPI INHALER 2 PUFFS B.I.D.. USE VENTOLIN INHALER 2 PUFFS Q 6 HOURS P.R.N. ONLY IF THERE IS AUDIBLE WHEEZING OR PERSISTENT COUGH. TO BUILD HIS CHEST MUSCLE STRENGTH I HAVE GIVEN HIM INCENTIVE SPIROMETRY FROM THE OFFICE, AND ADVISED TO DO DEEP BREATHING [id number] EVERY 2-3 HOURS WHILE AWAKE. (2) Allergic rhinitis: Comment: He presents with symptoms of nasal congestion postnasal drip and cough. at nighttime This seems to be secondary to allergic rhinitis. in December 2022, EIOSINOPHIL count was 0.6 ( 600 ) Code(s): J30.9 - Allergic rhinitis, unspecified Category: Medical Plan: DOES NOT NEED TO USE ANY INHALER ON A REGULAR BASIS. MAY USE OTC ANTIHISTAMINIC AGENT SUCH CLARITIN 10 MG P.R.N. Coding Level of Care Code Est Pt Level 3 (74983) Diagnoses COPD (chronic obstructive pulmonary disease) J44.9 Allergic rhinitis J30.9
== END 2024-08-15 11:53 | disposition home or self-care (01) ==
PROVIDERS: PCP Internal Medicine; Visit Provider Internal Medicine
DX: J44.9 Chronic obstructive pulmonary disease, unspecified (principal); J30.9 Allergic rhinitis, unspecified
CPT/HCPCS: 99213

== ENCOUNTER → 2024-08-15 11:07 | Outpatient (BNVA) | payer MEDICARE, MEDICAID, SELFPAY | PROVIDERS: PCP Internal Medicine; Visit Provider Internal Medicine | DX: J44.9 Chronic obstructive pulmonary disease, unspecified (principal); J30.9 Allergic rhinitis, unspecified | CPT/HCPCS: 99212 ==

== ENCOUNTER 2024-08-21 10:42 | Outpatient (REF) | payer MEDICARE, MEDICAID, SELFPAY ==
[2024-08-21 13:50] LABS: Appearance Urine Clear; Color Urine Yellow; Glucose Urine UA Negative (Negative); Leukocyte Esterase Urine Large (3+) (Negative); Nitrite Urine Negative (Negative); PH 6.5 (5.0-9.0); UMIC TRIGGER UA YES; Urine Blood Moderate (2+) (Negative); Urine Ketones Negative (Negative); Urine Protein 30 (1+) mg/dL (Neg-Trace)
[2024-08-21 13:54] LABS: Bacteria Urine 4+ (None Seen); Hyaline Casts Urine 0-2 /LPF (0-2); Squamous Epithelial Cell Urine 0-2 /HPF (0-2); WBC Urine >50 /HPF (0-5)
== END 2024-08-21 10:43 | disposition home or self-care (01) ==
LOC: HO.HMGCLDS 10:42
PROVIDERS: PCP Internal Medicine; Visit Provider Urology
DX: N32.81 Overactive bladder (principal)
CPT/HCPCS: 81001; 87086; 87088; 87186

== ENCOUNTER 2024-08-22 08:32 | Outpatient (REF) | payer MEDICARE, MEDICAID, SELFPAY ==
[2024-08-22 09:13] LABS: Hematocrit 42.2 % (42.0-52.0); Hemoglobin 13.8 g/dl (14.0-18.0); Mean Corpuscular HGB Conc 32.7 g/dl (31.0-36.0); Mean Corpuscular Hemoglobin 29.2 pg (27.0-33.0); Mean Corpuscular Volume 89.2 fL (80.0-98.0); Mean Platelet Volume 9.9 fL (9.4-12.4); Platelet Count 193 X10*3/uL (160-400); Red Blood Count 4.73 X10*6/uL (4.60-5.80); Red Cell Distribution Width 14.1 % (11.0-16.0); White Blood Count 7.3 X10*3/uL (4.8-10.8)
[2024-08-22 09:42] LABS: Alanine Aminotransferase 50 U/L (0-40); Albumin Level 3.9 g/dL (3.5-5.0); Alkaline Phosphatase 91 U/L (39-117); Anion Gap 11 (12-20); Aspartate Amino Transferase 37 U/L (5-37); Bilirubin Direct 0.3 mg/dL (0.0-0.5); Bilirubin Total 0.5 mg/dL (0.0-1.0); Blood Urea Nitrogen 21 mg/dL (9-16); Carbon Dioxide 24 mmol/L (22-29); Chloride 106 mmol/L (96-108); Estimated Glomerular Filt Rate > 60; Glucose Random 110 mg/dL (60-115); Potassium 4.2 mmol/L (3.3-5.1); Sodium 137 mmol/L (135-145); Total Protein 6.6 g/dL (6.5-8.0)
[2024-08-30 01:49] LABS: Acetylcholine Recept. Blocking 30 (<15)
[2024-08-30 17:34] LABS: Acetylcholine Receptor Binding 32.61 nmol/L
[2024-09-03 10:39] LABS: Acetylcholine Recep Modulating 77
== END 2024-08-22 08:33 | disposition home or self-care (01) ==
LOC: HO.LAB 08:32
PROVIDERS: PCP Internal Medicine; Visit Provider Psychiatry & Neurology Neurology
DX: G70.00 Myasthenia gravis without (acute) exacerbation (principal)
CPT/HCPCS: 36415; 80048; 80076; 85027; 86041; 86042; 86043

== ENCOUNTER 2024-09-09 10:43 | Outpatient (AMB) | payer MEDICARE, MEDICAID, SELFPAY ==
[2024-09-09 11:10] VITALS: BP 120/72; PULSE 57; TEMP 36.6; O2SAT 97; BMI 27.9
--- NOTE | 2024-09-09 11:10 | AM.OFFWIN_ITS ---
Intake Vital Signs 09/09/24 11:10 Height 6 ft Weight 206 lb BMI 27.9 BP 120/72 Blood Pressure Location Rt brachial Position Sitting Pulse 57 Pulse Source Pulse Oximeter Temp 97.9 F Temp Source Oral Pulse Oximetry (%) 97 Oxygen Delivery Method Room Air Intake Visit Reasons: EP pain on RT hip, having trouble waalking Intake Note: pt is here for pain on right hip, having trouble walking Patient Tobacco Use Status: Never used Tobacco Allergies No Known Allergies [No Known Allergies*] Allergy (Verified 09/09/24 11:10) Do you need a note to return to daycare/school/sports/work: No HPI HPI Comments History of Present Illness Details Patient is a 74-year-old male complaining of over 2 weeks of right hip pain. He tells me the pain is worse when he walks and better when he sits. He has not been doing much to try to control the pain besides resting and taking some ibuprofen here and there. He tells me he has had his right hip replaced and he also has a implanted device to control his sciatic nerve pain. He tells me this pain is more like a throbbing aching pain and not a sharp shooting pain. He tells me the pain radiates into his right buttock but does not go down the back of his right leg. He denies any injury. 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) Back pain Arthritis JULIEN (dyspnea on exertion) Disc degeneration, lumbar Hyperglycemia Abdominal pain Pulmonary nodule Hyperlipidemia COPD (chronic obstructive pulmonary disease) Myasthenia gravis Scoliosis Spondylosis of lumbosacral spine with radiculopathy Degenerative disc disease, lumbar Hypothyroid Leg cramps Emphysema of lung Iron deficiency anemia Osteoarthritis Diastolic dysfunction Hypertension Incomplete emptying of bladder due to benign prostatic hyperplasia Nocturia associated with benign prostatic hyperplasia BPH loc w urin obs/LUTS Surgical History History of right inguinal hernia repair (~10/31/23) History of carpal tunnel surgery Hx of hand surgery History of left inguinal hernia repair S/P insertion of spinal cord stimulator History of colonoscopy History of lung surgery (~11/2020) History of total right hip arthroplasty (~02/2018) History of hydrocelectomy Hx of tonsillectomy Family History Father No problems noted. Mother No problems noted. Social History Household Members: Spouse Household Members Other:: spouse has dementia Housing: House Are you a primary medicare compliance auditor to a significant other at home: Yes (-has dementia) Do you presently have visiting nurse or other home services: No Alcohol intake: never Patient Tobacco Use Status: Never used Tobacco e-Cigarette/Vaping Use: Never Used Second Hand Smoke Exposure: No service: No Current occupational status: retired Current occupation: right handed Cognitive needs: No Hearing needs: No Vision needs: No Review of Systems Const All systems reviewed & are unremarkable except as noted in HPI and below Physical Exam Vital Signs: Last Vital Signs Temp 97.9 F 09/09/24 11:10 Pulse 57 09/09/24 11:10 BP 120/72 09/09/24 11:10 Pulse Ox 97 09/09/24 11:10 Oxygen Delivery Method Room Air 09/09/24 11:10 BMI result Body Mass Index 27.9 Const General: cooperative, healthy appearing and comfortable Orientation/consciousness: patient oriented x3 HEENT Head: Yes normal to inspection and Yes normocephalic General nose exam: Normal external nose present Face and sinus: Yes normal facial exam Eyes General: appearance normal, both eyes and all related structures Resp Effort & Inspection: normal respiratory effort and able to speak in complete sentences Back/Spine/Pelvis Cervical Spine: normal cervical lordosis and cervical ROM normal Thoracic/Lumbar Spine: thoracic and lumbar spine normal to inspection and str aight leg raise negative bilaterally Pelvis: no pain with anterior-posterior compression, no pain with lateral compression, no buttock tenderness, no buttock swelling and no sciatic notch tenderness Neuro General: patient oriented x3 Extrem Other: Straight leg raise test negative on right; Straight leg raise test negative on left; Reflexes normal ankle and knee bilaterally; motor strength normal bilaterally Assessment & Plan Assessment & Plan (1) Acute right hip pain: Code(s): M25.551 - Pain in right hip Plan: Physical exam is relatively unremarkable but with the fact that he has hardware in place and the pain is not getting better after 2 weeks, we will get an x-ray. Recommended he take 5 days of meloxicam and see how the pain is, if he needs to do it for another 5 days, he can do so but if the pain is persisting after 10 days, he should follow up with his PCP for possible physical therapy or further workup Plan See above Orders: Orders XR hip RT w PEL1V Today M25.551 - Pain in right hip Medications: New meloxicam 15 mg PO DAILY 10 tabs 0RF Coding Level of Care Code Est Pt Level 4 (31374) Diagnoses Acute right hip pain M25.551
== END 2024-09-09 12:34 | disposition home or self-care (01) ==
PROVIDERS: PCP Internal Medicine; Visit Provider Physician Assistant
DX: M25.551 Pain in right hip (principal)

== ENCOUNTER 2024-09-09 10:43 | Outpatient (REF) | payer MEDICARE, MEDICAID, SELFPAY ==
--- NOTE | ~2024-09-09 | XR_ITS ---
EXAMINATION: XR HIP, RIGHT CLINICAL INFORMATION: Right hip pain. COMPARISON: Most recent pelvic and hip radiographs dated 12/12/2022. TECHNIQUE: AP view of the pelvis as well as AP and frog-leg lateral views of the right hip. FINDINGS: No acute fracture or dislocation. Total right hip arthroplasty in unchanged anatomic alignment. No hardware fracture or dislocation. No evidence of asymmetric wear. No perihardware lucency to suggest loosening or infection. Dystrophic ossification along the medial and lateral joint space with the gap between the medial ossifications measuring up to 0.5 cm in ML dimension. No bridging ossifications. No acute osseous fracture. No left hip dislocation. Mild left hip joint space narrowing with small marginal osteophytes. No evidence of left femoral head avascular necrosis. Partially visualized degenerative disc disease and facet arthropathy within the lower lumbar spine. Neurostimulator overlying the left pelvis. XR/XR hip RT w PEL1V IMPRESSION: 1. Total right hip arthroplasty without evidence of complication. 2. Dystrophic ossification along the medial and lateral joint space with the gap between the ossifications measuring up to 0.5 cm. No bridging ossifications. Findings are unchanged when compared to the radiographs from 2022. 3. Mild left hip osteoarthritis. Electronically signed by: Lucas He MD 09/09/2024 02:32 PM [facility] [place]
== END 2024-09-09 10:44 | disposition home or self-care (01) ==
LOC: HO.HMGCX 10:43
PROVIDERS: PCP Internal Medicine; Visit Provider Physician Assistant
DX: M25.551 Pain in right hip (principal); Z96.641 Presence of right artificial hip joint
CPT/HCPCS: 73502; 99212

== ENCOUNTER 2024-09-13 10:34 | Outpatient (AMB) | payer MEDICARE, MEDICAID, SELFPAY ==
--- NOTE | 2024-09-13 10:35 | A.OFFVIS_ITS ---
Intake Visit Reasons: 1m follow up(Med Review) Intake Note: Patient is present for Telephone Med Review Urology Med: Amitriptyline, Gabapentin Antibiotic Allergy: None Blood Thinner: Aspirin Recent Urine Culture: 08/21/24 was treated with Bactrim Patient states that he is feeling better has had no recent UTI Symptoms Ui Programmer Required: No Accompanied by: Self / Same As Patient Allergies No Known Allergies [No Known Allergies*] Allergy (Verified 09/13/24 10:37) HPI Comments Details: Olegario is a very pleasant male. He is a patient of Dr. Suazo. He is seen for the following urologic conditions - lower urinary tract symptoms - renal cyst Telemedicine Evaluation 15 min Consultation [employer] Video One month follow-up trial of amitriptyline and gabapentin Discussed possible InterStim Has stimulator for sciatica Underwent Botox 05/29 Does not think this was beneficial Baseline nocturia 4-5 Overactive bladder Cystoscopy 02/25 trabeculation with reduced stability open bladder neck Failed trial of tolterodine and oxybutynin, toviaz secondary to dry mouth and dry eyes Nocturia stabilized with imipramine over still getting up 5 times at night Lower urinary tract symptoms Current encounter for the follow-up of lower urinary tract symptoms - good response with finasteride daily for effective stream and emptying Current treatment includes medication - none Prostate Symptom Score 8/18 , Moderate (9-19), Bother 3. Symptoms include 8/18 , incomplete emptying, weak stream, nocturia (>2), and are progressing. Results from testing include cystoscopy high riding bladder neck (median bar) 07/24, 01/25 median bar with mild trabeculation renal/bladder us Yes date 07/04/2018 PVR 35 prostate size 45 PSA 02/22 1.2, 11/26 0.5 Prostate volume 30-50gm. 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) Back pain Arthritis JULIEN (dyspnea on exertion) Disc degeneration, lumbar Hyperglycemia Abdominal pain Pulmonary nodule Hyperlipidemia COPD (chronic obstructive pulmonary disease) Myasthenia gravis Scoliosis Spondylosis of lumbosacral spine with radiculopathy Degenerative disc disease, lumbar Hypothyroid Leg cramps Emphysema of lung Iron deficiency anemia Osteoarthritis Diastolic dysfunction Hypertension Incomplete emptying of bladder due to benign prostatic hyperplasia Nocturia associated with benign prostatic hyperplasia BPH loc w urin obs/LUTS Surgical History History of right inguinal hernia repair (~10/31/23) History of carpal tunnel surgery Hx of hand surgery History of left inguinal hernia repair S/P insertion of spinal cord stimulator History of colonoscopy History of lung surgery (~11/2020) History of total right hip arthroplasty (~02/2018) History of hydrocelectomy Hx of tonsillectomy Family History Father No problems noted. Mother No problems noted. Social History Household Members: Spouse Household Members Other:: spouse has dementia Housing: House Are you a primary residential caregiver to a significant other at home: Yes (-has dementia) Do you presently have visiting nurse or other home services: No Alcohol intake: never Patient Tobacco Use Status: Never used Tobacco e-Cigarette/Vaping Use: Never Used Second Hand Smoke Exposure: No service: No Current occupational status: retired Current occupation: right handed Cognitive needs: No Hearing needs: No Vision needs: No Review of Systems Const All systems reviewed & are unremarkable except as noted in HPI and below Reports no additional complaints Resp Reports no additional complaints GI Reports no additional complaints Reports as per HPI Musc Reports no additional complaints Physical Exam Telemedicine evaluation Appropriate responses Regular breathing rate and rhythm HEENT Head: Yes normal to inspection Ears: hearing grossly normal bilaterally Eyes General: appearance normal, both eyes and all related structures Neck Neck: Yes normal visual inspection Chest Chest palpation & inspection: normal inspection of the chest Resp Effort & Inspection: normal respiratory effort and able to speak in complete sentences Telehealth Telehealth Location of provider rendering services: practice address Location of patient: address on file Patient Identification confirmed using: Name, : Yes Telehealth method: video Patient verbally consented to treatment: Yes Patient verbally consented to billing insurance company: Yes Patient informed of any privacy concerns related to visit: Yes Assessment & Plan Assessment & Plan (1) Renal cyst: Code(s): N28.1 - Cyst of kidney, acquired Category: Medical (2) Overactive bladder: Code(s): N32.81 - Overactive bladder Category: Medical Plan Three-month follow-up office UA Medications: Changed From amitriptyline 25 mg PO BEDTIME 30 days 30 tabs 0RF N32.81 - Overactive bladder To amitriptyline 50 mg PO BEDTIME 90 days 90 tabs 0RF N32.81 - Overactive bladder From gabapentin 300 mg PO BEDTIME 30 days 30 caps 0RF N32.81 - Overactive bladder, R23.2 - [place], T50.905A - Adverse effect of unspecified drugs, medicaments and biological substances, initial encounter To gabapentin 300 mg PO BEDTIME 90 days 90 caps 0RF N32.81 - Overactive bladder, R23.2 - [place], T50.905A - Adverse effect of unspecified drugs, medicaments and biological substances, initial encounter Patient Instructions: Imaging studies, laboratory and physical exam results were discussed and reviewed in detail. No major barriers to patient understanding were identified. An opportunity to ask questions regarding the treatment plan was provided. All questions were answered. The patient expressed understanding and agreement with the above treatment plan. The patient is aware they should contact our office by phone for worsening of their current condition or the appearance of new urologic symptoms. Compliance is encouraged with any medications and followup testing that is ordered. It is a privilege to participate in the urologic care of your patient. If you have any questions or concerns regarding treatment for the above conditions, or other urologic issues, please do not hesitate to contact me. The office telephone contact is [phone]. This note is constructed using voice recognition software. While every effort has been made to ensure accuracy planer setter errors may have been included. Yours sincerely, Dr Syed Adams MD, [facility] - Urology Providers of Expert, Compassionate Care for the Genitourinary System Coding Level of Care Code Tele Est Pt Level 4 (51609) Diagnoses Renal cyst N28.1 Overactive bladder N32.81
== END 2024-09-13 11:05 | disposition home or self-care (01) ==
LOC: HO.HUSH 10:34
PROVIDERS: PCP Internal Medicine; Visit Provider Urology
DX: N28.1 Cyst of kidney, acquired (principal); N32.81 Overactive bladder
CPT/HCPCS: 99214

== ENCOUNTER 2024-11-28 15:09 | Outpatient (AMB) | payer MEDICARE, MEDICAID, SELFPAY ==
[2024-11-28 15:24] VITALS: BP 122/70; PULSE 64; BMI 28.8
--- NOTE | 2024-11-28 15:24 | A.OFFVIS_ITS ---
Vital Signs 11/28/24 15:24 Height 6 ft Weight 212 lb 8.41 oz BMI 28.8 BP 122/70 Blood Pressure Location Lt brachial Position Sitting Pulse 64 Pulse Source Pulse Oximeter Intake Visit Reasons: 4 mth f/up ok per DC Blood Bank Credit Clerk Required: No Allergies No Known Allergies [No Known Allergies*] Allergy (Verified 11/28/24 15:26) Medication List - Last Reconciled 11/28/24 by EVA Rolle acetaminophen (Tylenol) 650 mg PO Q6H PRN amitriptyline 50 mg PO BEDTIME 90 days amlodipine 2.5 mg PO DAILY aspirin (Enteric Coated Aspirin) 81 mg PO DAILY azathioprine 50 mg PO DAILY clotrimazole-betamethasone 1-0.05 % 1 appl topical DAILY PRN glycopyrrolate-formoterol 9-4.8 mcg (Bevespi Aerosphere) 2 puffs inhalation BID 30 days levothyroxine 50 mcg PO DAILY lisinopril 20 mg PO DAILY meloxicam 15 mg PO DAILY multivitamin 1 cap PO DAILY nitroglycerin 0.4 mg sublingual Q5M PRN omeprazole 20 mg PO DAILY prednisone 1 mg PO BEDTIME pyridostigmine bromide 60 mg PO TID rosuvastatin 5 mg PO DAILY 90 days sulfamethoxazole-trimethoprim 800-160 mg (Bactrim DS) 1 tab PO BID 7 days Ventolin HFA 90 mcg/actuation (albuterol sulfate) 2 puffs inhalation Q4-6H PRN NS HPI HPI 4 mth f/up ok per DC: Details: Olegario is a 74 yo male with PMH of HTN, HLD, LVH, COPD, chronic reports of shortness of breath, syncope, nonobstructive coronary artery disease who presents for follow-up. Today he reports that he is having a flare of his myasthenia gravis. He follows with Dr. Saez for Neurology and will be starting on treatment next week. His symptoms are weakness, fatigue and at times some difficulties with his right leg. He has been ambulating with a cane. He denies any cardiac issues. His breathing is unchanged. He does have some shortness of breath with exertion. No chest discomfort at rest or with activity. No PND, orthopnea or edema. No palpitations, lightheadedness, presyncope, syncope, falls. Taking meds as directed. His has dementia and is in a fdc. He visits her several times weekly. He is anxiously waiting for the weather to improve so he can work in his garden. 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) Back pain Arthritis JULIEN (dyspnea on exertion) Disc degeneration, lumbar Hyperglycemia Abdominal pain Pulmonary nodule Hyperlipidemia COPD (chronic obstructive pulmonary disease) Myasthenia gravis Scoliosis Spondylosis of lumbosacral spine with radiculopathy Degenerative disc disease, lumbar Hypothyroid Leg cramps Emphysema of lung Iron deficiency anemia Osteoarthritis Diastolic dysfunction Hypertension Incomplete emptying of bladder due to benign prostatic hyperplasia Nocturia associated with benign prostatic hyperplasia BPH loc w urin obs/LUTS Surgical History History of right inguinal hernia repair (~10/31/23) History of carpal tunnel surgery Hx of hand surgery History of left inguinal hernia repair S/P insertion of spinal cord stimulator History of colonoscopy History of lung surgery (~11/2020) History of total right hip arthroplasty (~02/2018) History of hydrocelectomy Hx of tonsillectomy Family History Father No problems noted. Mother No problems noted. Social History Household Members: Spouse Household Members Other:: spouse has dementia Housing: House Are you a primary day care home mother to a significant other at home: Yes (-has dementia) Do you presently have visiting nurse or other home services: No Alcohol intake: never Patient Tobacco Use Status: Never used Tobacco e-Cigarette/Vaping Use: Never Used Second Hand Smoke Exposure: No service: No Current occupational status: retired Current occupation: right handed Cognitive needs: No Hearing needs: No Vision needs: No Review of Systems Const All systems reviewed & are unremarkable except as noted in HPI and below Reports fatigue and Reports weakness ENT Denies dizziness Card Denies chest pain, Denies chest pain at rest, Denies chest pain with activity, Denies rapid heart rate, Denies pedal edema, Denies edema, Denies leg edema, Denies lightheadedness, Denies palpitations, Denies dyspnea, Denies dyspnea on exertion and Denies orthopnea Resp Denies cough, Denies dyspnea and Denies dyspnea on exertion GI Denies hematochezia and Denies change in stool character Musc Denies abnormal gait (uses cane for balance), Denies limited range of motion, Reports muscle weakness, Denies numbness, Denies radiating pain into limb, Denies stiffness and Denies tingling Neuro Denies abnormal gait (uses cane for balance), Denies dizziness, Denies numbness, Denies tingling and Reports weakness Endo Reports fatigue and Denies palpitations Physical Exam Vital Signs: Last Vital Signs Pulse 64 11/28/24 15:24 BP 122/70 11/28/24 15:24 BMI result Body Mass Index 28.8 Const General: cooperative, healthy appearing, comfortable and no acute distress Orientation/consciousness: patient oriented x3 Neck Neck: Yes normal visual inspection Resp Effort & Inspection: normal respiratory effort Auscultation: clear to auscultation bilaterally, no crackles, no rales, no rhonchi and no wheezes Cardio Jugular venous distension: no JVD Rate: regular rate Rhythm: regular rhythm Heart sounds: S1 normal heart sound present, S2 normal heart sound present, no murmurs and no rubs Neuro General: patient oriented x3 Extrem General: Yes normal to inspection Psych Appearance: grossly normal Mental Status: mental status grossly normal Speech and movement: Normal speech and movement present Assessment & Plan Assessment & Plan (1) JULIEN (dyspnea on exertion): Comment: Dyspnea on exertion is mild, as long as he does not climb stairs or walk up [place]. Code(s): R06.00 - Dyspnea, unspecified Category: Medical Plan: History of COPD. Patient reports chronic shortness of breath with exertion. He was evaluated for any cardiac reason contributing to his shortness of breath. A pharmacological nuclear stress test was done 05/04/2021 showing no evidence of infarct or ischemia, EF mildly reduced. An echocardiogram done 03/23/2021 shows normal EF, moderate LVH, moderate dilated left atrium, normal valves. He continued to have symptoms and then underwent a CTA of the coronary arteries on 11/16/2022 which showed nonobstructive coronary artery disease, moderate proximal LAD stenosis 50-60%, mid LAD 25%, 1st OM less than 50%. This degree of coronary artery disease should not cause his shortness of breath. Most recent echo 07/21/23 showed EF 57%, moderate LVH, severe septal asymmetric hypertrophy without mention of LV outflow obstruction or gradient. Today he reports that his breathing is unchanged from prior reports. He has some shortness of breath with exertion. On exam he does not have any signs of heart failure/fluid overload. His blood pressure is well controlled. His shortness of breath symptom is most likely related to his COPD and deconditioning. (2) CAD (coronary artery disease): Code(s): I25.10 - Atherosclerotic heart disease of [place] coronary artery without angina pectoris Category: Medical Plan: CTA of the coronary arteries done last year, details as above. Mild to at most moderate degree of CAD. No clear anginal symptoms at this time. Continue aspirin, rosuvastatin with LDL goal less than 70. Labs done 06/14/2024 showed LDL 35. Continue amlodipine and lisinopril for blood pressure control. Emergency care if ever needed for any concerning symptoms. Signs and symptoms of angina reviewed with him. Cardiology follow-up 6 months, sooner if needed (3) COPD (chronic obstructive pulmonary disease): Comment: He does have chronic obstructive pulmonary disease for past many years, it is staying very stable. TX: Stiolto 2 inhalation ONCE A DAY and albuterol HFA 2 puffs Q 4-6 hours only p.r.n.. Code(s): J44.9 - Chronic obstructive pulmonary disease, unspecified Category: Medical Plan: Follows with pulmonology (4) Hypertension: Code(s): I10 - Essential (primary) hypertension Category: Medical Plan: His echo shows moderate LVH, severe septal asymmetric hypertrophy. The importance of ongoing very good blood pressure control reviewed with him. Blood pressure good at present time. Will continue on current lisinopril. Labs done 08/22/2024 showed potassium 4.2, creatinine 0.93. (5) LVH (left ventricular hypertrophy): Code(s): I51.7 - Cardiomegaly Category: Medical Plan: Moderate LVH on last echo (6) Asymmetric septal hypertrophy: Code(s): I42.2 - Other hypertrophic cardiomyopathy Category: Medical Plan: Severe asymmetric septal hypertrophy seen on last echo. No mention of outflow obstruction on echocardiogram. Blood pressure is well controlled. He has some shortness of breath which has been chronic. No signs of heart failure on exam. Plan Time spent on chart review, documentation, interview and assessment Coding Level of Care Code Est Pt Level 4 (51904) Complex EM visit Add On G2211 Diagnoses JULIEN (dyspnea on exertion) R06.00 CAD (coronary artery disease) I25.10 COPD (chronic obstructive pulmonary disease) J44.9 Hypertension I10 LVH (left ventricular hypertrophy) I51.7 Asymmetric septal hypertrophy I42.2 Time Spent (min) 32
== END 2024-11-28 15:55 | disposition home or self-care (01) ==
PROVIDERS: PCP Internal Medicine; Visit Provider Nurse Practitioner Family
DX: R06.00 Dyspnea, unspecified (principal); I25.10 Atherosclerotic heart disease of native coronary artery without angina pectoris; J44.9 Chronic obstructive pulmonary disease, unspecified; I10 Essential (primary) hypertension; I51.7 Cardiomegaly; I42.2 Other hypertrophic cardiomyopathy
CPT/HCPCS: 99214; G2211

== ENCOUNTER → 2024-11-28 15:09 | Outpatient (BNVA) | payer MEDICARE, MEDICAID, SELFPAY | PROVIDERS: PCP Internal Medicine; Visit Provider Nurse Practitioner Family | DX: I25.10 Atherosclerotic heart disease of native coronary artery without angina pectoris (principal); I51.7 Cardiomegaly; I10 Essential (primary) hypertension; I42.2 Other hypertrophic cardiomyopathy; R06.00 Dyspnea, unspecified; J44.9 Chronic obstructive pulmonary disease, unspecified | CPT/HCPCS: 99212 ==

== ENCOUNTER 2024-12-09 09:36 | Outpatient (AMB) | payer MEDICARE, MEDICAID, SELFPAY ==
--- NOTE | 2024-12-09 09:38 | A.OFFVIS_ITS ---
Vital Signs 12/09/24 09:39 Height 6 ft Weight 214 lb 4 oz BMI 29.1 Intake Visit Reasons: hernia Intake Note: This patient presents for hernia assessment. Pt c/o; left groin, occasional discomfort, no bulge. Jalousie Installer Required: No Accompanied by: Self / Same As Patient Allergies No Known Allergies [No Known Allergies*] Allergy (Verified 12/09/24 09:44) Medication List - Last Reconciled 12/09/24 by Ludwin Romero MD acetaminophen (Tylenol) 650 mg PO Q6H PRN amitriptyline 50 mg PO BEDTIME 90 days amlodipine 2.5 mg PO DAILY aspirin 81 mg PO DAILY azathioprine 50 mg PO DAILY clotrimazole-betamethasone 1-0.05 % 1 appl topical DAILY PRN glycopyrrolate-formoterol 9-4.8 mcg (Bevespi Aerosphere) 2 puffs inhalation BID 30 days levothyroxine 50 mcg PO DAILY lisinopril 20 mg PO DAILY meloxicam 15 mg PO DAILY multivitamin 1 cap PO DAILY nitroglycerin 0.4 mg sublingual Q5M PRN omeprazole 20 mg PO DAILY prednisone 1 mg PO BEDTIME pyridostigmine bromide 60 mg PO TID rosuvastatin 5 mg PO DAILY 90 days sulfamethoxazole-trimethoprim 800-160 mg (Bactrim DS) 1 tab PO BID 7 days Ventolin HFA 90 mcg/actuation (albuterol sulfate) 2 puffs inhalation Q4-6H PRN NS HPI HPI hernia: Details: He is here for left groin pain. He describes having this sharp pain in the left groin for about 3 weeks now He denies any palpable mass He has a history of a right inguinal hernia and had undergone repair in 2022 for this. He is doing well with in this regard. He has a history of myasthenia gravis and has undergone IVIG treatment last month. He says that his muscle weakness on the lower extremities seemed to be getting worse. 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) Back pain Arthritis JULIEN (dyspnea on exertion) Disc degeneration, lumbar Hyperglycemia Abdominal pain Pulmonary nodule Hyperlipidemia COPD (chronic obstructive pulmonary disease) Myasthenia gravis Scoliosis Spondylosis of lumbosacral spine with radiculopathy Degenerative disc disease, lumbar Hypothyroid Leg cramps Emphysema of lung Iron deficiency anemia Osteoarthritis Diastolic dysfunction Hypertension Incomplete emptying of bladder due to benign prostatic hyperplasia Nocturia associated with benign prostatic hyperplasia BPH loc w urin obs/LUTS Surgical History History of right inguinal hernia repair (~10/31/23) History of carpal tunnel surgery Hx of hand surgery History of left inguinal hernia repair S/P insertion of spinal cord stimulator History of colonoscopy History of lung surgery (~11/2020) History of total right hip arthroplasty (~02/2018) History of hydrocelectomy Hx of tonsillectomy Family History Father No problems noted. Mother No problems noted. Social History Household Members: Spouse Household Members Other:: spouse has dementia Housing: House Are you a primary nursing care attendant to a significant other at home: Yes (-has dementia) Do you presently have visiting nurse or other home services: No Alcohol intake: never Patient Tobacco Use Status: Never used Tobacco e-Cigarette/Vaping Use: Never Used Second Hand Smoke Exposure: No service: No Current occupational status: retired Current occupation: right handed Cognitive needs: No Hearing needs: No Vision needs: No Review of Systems Const Denies chills and Denies fever(s) Card Denies chest pain, Denies dyspnea and Denies dyspnea on exertion Resp Denies cough, Denies dyspnea and Denies dyspnea on exertion GI Denies hematochezia and Denies change in bowel habits Denies hematuria and Denies difficulty urinating Musc Reports abnormal gait, Reports back pain and Reports limited range of motion Neuro Reports abnormal gait, Denies focal weakness and Denies convulsions Psych Denies depression and Denies mood swings Physical Exam Vital Signs: BMI result Body Mass Index 29.1 Const Other: Walks with a cane General: comfortable and no acute distress Orientation/consciousness: patient oriented x3 Neck Neck: Yes no lymphadenopathy Resp Auscultation: clear to auscultation bilaterally Cardio Rhythm: regular rhythm GI Other: No palpable hernia on the left groin, no scrotal mass Right groin inguinal hernia repair site intact Palpation (GI): Soft to palpation, nontender and no guarding Neuro General: patient oriented x3 Assessment & Plan Assessment & Plan (1) Left groin pain: Code(s): R10.32 - Left lower quadrant pain Category: Medical Plan: He describes left groin pain for the past 3 weeks. He does not feel any lump Physical exam does not reveal an obvious hernia. I am going to therefore order for a CAT scan to rule out a hernia in the groin I told him that we will see him again after his CAT scan to discuss the findings. He understands the plan well. Coding Level of Care Code Est Pt Level 3 (61276) Diagnoses Left groin pain R10.32
[2024-12-09 09:39] VITALS: BMI 29.1
--- OUTSIDE RECORDS SUMMARY | 2024-12-09 10:01 | XMS_ITS | Clinical Summary ---
Author Organization [facility] Address [id number] [place] [phone] Care Team Providers Care Equipment Tech Name Role Phone Gifty Frankel MD Primary Care Provider [phone] Social History Tobacco Use Types Packs/Day Years Used Date Smoking Tobacco: Never Assessed Sex and Gender Information Value Date Recorded Sex Assigned at Not on file Gender Identity Not on file Sexual Orientation Not on file Plan of Treatment Health Maintenance Due Date Last Done Comments DTaP,Tdap,and Td Vaccines (1 - Tdap) 1970 Zoster Vaccines (1 of 2) 2001 Pneumococcal Vaccine: 65+ Ye ars (1 of 1 - PCV) 01/15/2016 Abdominal Aortic Aneurysm (A AA) Screen 10/09/2022 Cholesterol Screening (Lipid Panel) 10/09/2022 Colorectal Cancer Screening: Colonoscopy 10/09/2022 Depression Screening 10/09/2022 Falls Risk Assessment 10/09/2022 Hepatitis C Screening 10/09/2022 Social Influencers of Health Screening 10/09/2022 COVID-19 Vaccine (1 - 2023-2 5 season) 2024 Influenza Vaccine (#1) 2024 RSV Immunization Patients 60 + Years Old (1 - 1-dose 75+ series) 2026 HIB Vaccines Aged Out No longer eligi ble based on patient's age to complete this topic HPV Vaccines Aged Out No longer eligi ble based on patient's age to complete this topic Hepatitis A Vaccines Aged Out No long er eligible based on patient's age to complete this topic Hepatitis B Vaccines Aged Out No long er eligible based on patient's age to complete this topic IPV Vaccines Aged Out No longer eligi ble based on patient's age to complete this topic MMR Vaccines Aged Out No longer eligi ble based on patient's age to complete this topic Meningococcal ACWY Vaccine Aged Out N o longer eligible based on patient's age to complete this topic RSV Immunization Patients Un kaleb 20 months Aged Out No longer eligible b ased on patient's age to complete this topic Varicella Vaccines Aged Out No longer eligible based on patient's age to complete this topic Care Teams Equipment Tech Relationship Specialty Start Date End Date Gifty Frankel MD PCP - General Internal Medicine 01/25/21
== END 2024-12-09 09:57 | disposition home or self-care (01) ==
PROVIDERS: PCP Internal Medicine; Visit Provider Surgery
DX: R10.32 Left lower quadrant pain (principal)
CPT/HCPCS: 99213

== ENCOUNTER → 2024-12-09 09:36 | Outpatient (BNVA) | payer MEDICARE, MEDICAID, SELFPAY | PROVIDERS: PCP Internal Medicine; Visit Provider Surgery | DX: R10.32 Left lower quadrant pain (principal) | CPT/HCPCS: 99212 ==

== ENCOUNTER → 2024-12-12 10:15 | Outpatient (BNVA) | payer MEDICARE, MEDICAID, SELFPAY | PROVIDERS: PCP Internal Medicine; Visit Provider Urology | DX: N32.81 Overactive bladder (principal) | CPT/HCPCS: 81003; 99212 ==

== ENCOUNTER 2024-12-13 15:49 | Outpatient (REF) | payer MEDICARE, MEDICAID, SELFPAY | END 2024-12-13 15:50 | disposition home or self-care (01) | LOC: HO.CT 15:49 | PROVIDERS: PCP Internal Medicine; Visit Provider Surgery | DX: R10.32 Left lower quadrant pain (principal) | CPT/HCPCS: 74176 ==

== ENCOUNTER → 2024-12-13 15:52 | Outpatient (BNV) | payer MEDICARE, MEDICAID, SELFPAY | PROVIDERS: PCP Internal Medicine; Visit Provider Specialist | DX: R10.32 Left lower quadrant pain (principal) | CPT/HCPCS: 74176 ==

== ENCOUNTER 2024-12-25 08:13 | Outpatient (AMB) | payer MEDICARE, MEDICAID, SELFPAY ==
[2024-12-25 08:14] VITALS: BP 139/73; PULSE 90; BMI 29.3
--- NOTE | 2024-12-25 08:14 | A.OFFVIS_ITS ---
Vital Signs 12/25/24 08:14 Height 6 ft Weight 216 lb 4 oz BMI 29.3 BP 139/73 Blood Pressure Location Rt brachial Position Sitting Pulse 90 Intake Visit Reasons: s/p CT Abd Pel 12/13/24 Intake Note: This patient presents for Ct-Scan follow-up ( 12/16/2024). Pt c/o; no complaints. Tangible Personal Property Appraiser Required: No Accompanied by: Self / Same As Patient Allergies No Known Allergies [No Known Allergies*] Allergy (Verified 12/25/24 08:14) Medication List - Last Reconciled 12/25/24 by Ludwin Romero MD acetaminophen (Tylenol) 650 mg PO Q6H PRN amitriptyline 50 mg PO BEDTIME 90 days amlodipine 2.5 mg PO DAILY aspirin 81 mg PO DAILY azathioprine 50 mg PO DAILY clotrimazole-betamethasone 1-0.05 % 1 appl topical DAILY PRN glycopyrrolate-formoterol 9-4.8 mcg (Bevespi Aerosphere) 2 puffs inhalation BID 30 days levothyroxine 50 mcg PO DAILY lisinopril 20 mg PO DAILY meloxicam 15 mg PO DAILY multivitamin 1 cap PO DAILY nitroglycerin 0.4 mg sublingual Q5M PRN omeprazole 20 mg PO DAILY prednisone 1 mg PO BEDTIME pyridostigmine bromide 60 mg PO TID rosuvastatin 5 mg PO DAILY 90 days sulfamethoxazole-trimethoprim 800-160 mg (Bactrim DS) 1 tab PO BID 7 days Ventolin HFA 90 mcg/actuation (albuterol sulfate) 2 puffs inhalation Q4-6H PRN NS HPI HPI s/p CT Abd Pel 12/13/24: Details: I had sent him for a CT scan because of his complains of left groin pain. He has a history of a left inguinal hernia repair in the past. He denies GI complaints. He denies any problems with urination. 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) Back pain Arthritis JULIEN (dyspnea on exertion) Disc degeneration, lumbar Hyperglycemia Abdominal pain Pulmonary nodule Hyperlipidemia COPD (chronic obstructive pulmonary disease) Myasthenia gravis Scoliosis Spondylosis of lumbosacral spine with radiculopathy Degenerative disc disease, lumbar Hypothyroid Leg cramps Emphysema of lung Iron deficiency anemia Osteoarthritis Diastolic dysfunction Hypertension Incomplete emptying of bladder due to benign prostatic hyperplasia Nocturia associated with benign prostatic hyperplasia BPH loc w urin obs/LUTS Surgical History History of right inguinal hernia repair (~10/31/23) History of carpal tunnel surgery Hx of hand surgery History of left inguinal hernia repair S/P insertion of spinal cord stimulator History of colonoscopy History of lung surgery (~11/2020) History of total right hip arthroplasty (~02/2018) History of hydrocelectomy Hx of tonsillectomy Family History Father No problems noted. Mother No problems noted. Social History Household Members: Spouse Household Members Other:: spouse has dementia Housing: House Are you a primary campground caretaker to a significant other at home: Yes (-has dementia) Do you presently have visiting nurse or other home services: No Alcohol intake: never Patient Tobacco Use Status: Never used Tobacco e-Cigarette/Vaping Use: Never Used Second Hand Smoke Exposure: No service: No Current occupational status: retired Current occupation: right handed Cognitive needs: No Hearing needs: No Vision needs: No Review of Systems Const Denies chills and Denies fever(s) Card Denies chest pain Resp Denies cough GI Denies abdominal pain Denies hematuria and Denies dysuria Musc Reports abnormal gait, Reports back pain, Reports arthralgias and Reports muscle weakness Neuro Reports abnormal gait Physical Exam Vital Signs: BMI result Body Mass Index 29.1 Const Other: Walks with a cane General: comfortable and no acute distress Resp Effort & Inspection: normal respiratory effort Cardio Rate: regular rate GI Palpation (GI): Soft to palpation Assessment & Plan Assessment & Plan (1) Left groin pain: Code(s): R10.32 - Left lower quadrant pain Category: Medical Plan: His CAT scan does not show any recurrent hernia. However, there is some mild left periureteral and perinephric edema suggestive of recent passage of a stone. I explained this finding to him. I am uncertain if this I explained this left groin pain which is localized. He denies any urinary complaints. I told him that he starts showing symptoms of a kidney stone like pain on the flank area and with urination,he should discuss this with his primary care physician and see if he needs any urology consult. He understands the plan. Coding Level of Care Code Est Pt Level 3 (92114) Diagnoses Left groin pain R10.32
--- OUTSIDE RECORDS SUMMARY | 2024-12-25 08:18 | XMS_ITS | Clinical Summary ---
Author Organization [facility] Address [address] [place] [id number] Care Team Providers Care Hearing Dog Trainer Name Role Phone Gifty Frankel MD Primary Care Provider [phone] Social History Tobacco Use Types Packs/Day Years Used Date Smoking Tobacco: Never Assessed Sex and Gender Information Value Date Recorded Sex Assigned at Not on file Legal Sex Male 8:23 AM EST Gender Identity Not on file Sexual Orientation Not on file Plan of Treatment Health Maintenance Due Date Last Done Comments DTaP,Tdap,and Td Vaccines (1 - Tdap) 1970 Pneumococcal Vaccine: 50+ Ye ars (1 of 1 - PCV) 2001 Zoster Vaccines (1 of 2) 2001 Abdominal Aortic Aneurysm (A AA) Screen 10/09/2022 Cholesterol Screening (Lipid Panel) 10/09/2022 Colorectal Cancer Screening: Colonoscopy 10/09/2022 Depression Screening 10/09/2022 Falls Risk Assessment 10/09/2022 Hepatitis C Screening 10/09/2022 Social Influencers of Health Screening 10/09/2022 COVID-19 Vaccine ( - 2023-2 5 season) 2024 Influenza Vaccine [...] patient's age to complete this topic Meningococcal B Vacine Aged Out No lo nger eligible based on patient's age to complete this topic RSV Immunization Patients Un kaleb 20 months Aged Out No longer eligible b ased on patient's age to complete this topic Varicella Vaccines Aged Out No longer eligible based on patient's age to complete this topic Care Teams Hearing Dog Trainer Relationship Specialty Start Date End Date Gifty Frankel MD PCP - General Internal Medicine 01/25/21
== END 2024-12-25 08:31 | disposition home or self-care (01) ==
PROVIDERS: PCP Internal Medicine; Visit Provider Surgery
DX: R10.32 Left lower quadrant pain (principal)
CPT/HCPCS: 99213

== ENCOUNTER → 2024-12-25 08:13 | Outpatient (BNVA) | payer MEDICARE, MEDICAID, SELFPAY | PROVIDERS: PCP Internal Medicine; Visit Provider Surgery | DX: R10.32 Left lower quadrant pain (principal) | CPT/HCPCS: 99212 ==

== ENCOUNTER 2025-01-03 10:23 | Observation (INO) | payer MEDICARE, MEDICAID, SELFPAY ==
--- NOTE | ~2025-01-03 | XR_ITS ---
EXAMINATION: XR CHEST CLINICAL INFORMATION: chest pain COMPARISON: 07/17/2023, and dating back to 2020. CT chest 07/18/2023. TECHNIQUE: Frontal view of the chest was obtained. FINDINGS: There is mild cardiac enlargement. The mediastinal and hilar contours are normal. Mild aortic calcification. The lungs demonstrate subtle linear and nodular scarring right base with surgical staple line present. Mild volume loss right lung. Lungs otherwise clear. No pneumothorax or effusion. No focal osseous or soft tissue abnormality. Degenerative changes of the spine. Spinal stimulator in place, terminating at the mid T10 level. XR/XR chest 1V IMPRESSION: 1. Mild cardiomegaly. 2. Stable postoperative changes and scarring right lower lobe. 3. No definite active disease. Electronically signed by: Serg Rowe MD 01/03/2025 11:23 AM [facility]
--- NOTE | 2025-01-03 10:26 | ECG_ITS ---
Test Reason : CHEST PAIN Blood Pressure : */* mmHG Vent. Rate : 69 BPM Atrial Rate : 69 BPM P-R Int : 240 ms QRS Dur : 140 ms QT Int : 440 ms P-R-T Axes : 22 133 -33 degrees QTcB Int : 471 ms Sinus rhythm with marked sinus arrhythmia with 1st degree A-V block Right bundle branch block Left posterior fascicular block T wave abnormality, consider inferior ischemia Abnormal ECG When compared with ECG of 17-Jul-2023 14:33, No significant change was found Referred By: Generic ED Physician Electronically Signed By: Giorgio Lares
[2025-01-03 10:29] VITALS: BP 125/73; PULSE 69; RESP 20; TEMP 36.3; O2SAT 98; BMI 28.3
[2025-01-03 11:29] LABS: MANUAL DIFF FLAG NO
[2025-01-03 11:30] LABS: Basophils Absolute Auto 0.1 X10*3/uL (0.0-0.2); Basophils Percent Auto 0.6 % (0-2); Eosinophils Absolute Auto 0.2 X10*3/uL (0.0-0.4); Eosinophils Percent Auto 1.7 % (0-4); Hematocrit 42.6 % (42.0-52.0); Hemoglobin 13.9 g/dl (14.0-18.0); Imm Gran Abs Auto 0.04 X10*3/uL (0.00-0.03); Imm Gran Pct Auto 0.5 % (0.0-0.4); Lymphocytes Absolute Auto 0.6 X10*3/uL (1.2-4.9); Lymphocytes Percent Auto 7.2 % (20-40); Mean Corpuscular HGB Conc 32.6 g/dl (31.0-36.0); Mean Corpuscular Hemoglobin 28.5 pg (27.0-33.0); Mean Corpuscular Volume 87.5 fL (80.0-98.0); Mean Platelet Volume 10.9 fL (9.4-12.4); Monocytes Absolute Auto 0.7 X10*3/uL (0.1-1.2); Neutrophils Absolute Auto 7.1 x10*3/uL (2.0-8.3); Platelet Count 184 X10*3/uL (160-400); Red Blood Count 4.87 X10*6/uL (4.60-5.80); Red Cell Distribution Width 14.4 % (11.0-16.0); White Blood Count 8.7 X10*3/uL (4.8-10.8)
[2025-01-03 11:47] LABS: Alanine Aminotransferase 38 U/L (0-40); Alkaline Phosphatase 87 U/L (39-117); Anion Gap 12 (12-20); Aspartate Amino Transferase 34 U/L (5-37); Bilirubin Direct 0.2 mg/dL (0.0-0.5); Bilirubin Total 0.5 mg/dL (0.0-1.0); Blood Urea Nitrogen 24 mg/dL (9-16); Calcium 9.1 mg/dL (8.4-10.2); Carbon Dioxide 21 mmol/L (22-29); Chloride 110 mmol/L (96-108); Creatinine Clr Calc Pharmacy 93.5; Estimated Glomerular Filt Rate > 60; Glucose Random 93 mg/dL (60-115); Lipase 31 U/L (8-78); Potassium 4.7 mmol/L (3.3-5.1); Sodium 138 mmol/L (135-145); Total Protein 7.8 g/dL (6.5-8.0)
[2025-01-03 12:00] LABS: Troponin-I High Sensitivity 103.9 ng/L (<3.5-35.0)
--- NOTE | 2025-01-03 13:08 | ED_ITS ---
HPI - Chest Pain General Chief Complaint: Chest Pain Stated Complaint: chest pain Time Seen by Provider: 01/03/25 12:50 Source: patient, RN notes reviewed and old records reviewed Mode of arrival: ambulatory Limitations: no limitations History of Present Illness ED Provider: Steph SILVEIRA narrative: Patient is a 74-year-old male with history of HTN, HLD, LVH, COPD, chronic reports of shortness of breath, syncope, nonobstructive coronary artery disease, myasthenia gravis presenting to the emergency department with several days of midsternal chest pain and pressure. Denies any increased shortness of breath from baseline. Denies any nausea or vomiting. States that his of 51 years on Monday and has had chest pain since. Denies palpitations. Denies cough or recent fevers. MD complaint: chest pain Related Data Home Medications ?Medication ?Instructions ?Recorded ?Confirmed clotrimazole-betamethasone 1 1 applic topical DAILY PRN Rash 08/18/20 12/25/24 %-0.05 % topical cream acetaminophen 325 mg tablet 650 mg PO Q6H PRN Pain 08/28/20 12/25/24 (Tylenol) multivitamin 1 cap PO DAILY 08/28/20 12/25/24 pyridostigmine bromide 60 mg tablet 60 mg PO TID 01/27/21 12/25/24 azathioprine 50 mg tablet 50 mg PO DAILY 12/07/23 12/25/24 prednisone 2.5 mg tablet 1 mg PO BEDTIME 11/28/24 12/25/24 Previous Rx's ?Medication ?Instructions ?Recorded nitroglycerin 0.4 mg sublingual 0.4 mg sublingual Q5M PRN chest 09/30/20 tablet pain #30 tabs Ventolin HFA 90 mcg/actuation 2 puff inhalation Q4-6H PRN 06/01/21 aerosol inhaler (albuterol sulfate) Wheezing #18 grams rosuvastatin 5 mg tablet 5 mg PO DAILY 90 days #90 tabs 06/03/24 omeprazole 20 mg capsule,delayed 20 mg PO DAILY #90 caps 07/11/24 release glycopyrrolate 9 mcg-formoterol 2 puff inhalation BID COPD 30 08/15/24 4.8 mcg HFA aerosol inhaler days #10.7 grams (Bevespi Aerosphere) sulfamethoxazole 800 1 tab PO BID 7 days #14 tabs 08/23/24 mg-trimethoprim 160 mg tablet (Bactrim DS) amlodipine 2.5 mg tablet 2.5 mg PO DAILY #90 tabs 09/02/24 lisinopril 20 mg tablet 20 mg PO DAILY #90 tabs 09/05/24 meloxicam 15 mg tablet 15 mg PO DAILY #10 tabs 09/09/24 amitriptyline 50 mg tablet 50 mg PO BEDTIME 90 days #90 tabs 09/13/24 levothyroxine 50 mcg tablet 50 mcg PO DAILY #90 tabs 10/02/24 aspirin 81 mg tablet,delayed 81 mg PO DAILY #90 tabs 11/29/24 release Allergies Allergy/AdvReac Type Severity Reaction Status Date / Time No Known Allergies Allergy Verified 01/03/25 10:34 [No Known Allergies*] Review of Systems 2 Review of Systems: As per HPI. 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) Back pain Arthritis JULIEN (dyspnea on exertion) Disc degeneration, lumbar Hyperglycemia Abdominal pain Pulmonary nodule Hyperlipidemia COPD (chronic obstructive pulmonary disease) Myasthenia gravis Scoliosis Spondylosis of lumbosacral spine with radiculopathy Degenerative disc disease, lumbar Hypothyroid Leg cramps Emphysema of lung Iron deficiency anemia Osteoarthritis Diastolic dysfunction Hypertension Incomplete emptying of bladder due to benign prostatic hyperplasia Nocturia associated with benign prostatic hyperplasia BPH loc w urin obs/LUTS Surgical History History of right inguinal hernia repair (~10/31/23) History of carpal tunnel surgery Hx of hand surgery History of left inguinal hernia repair S/P insertion of spinal cord stimulator History of colonoscopy History of lung surgery (~11/2020) History of total right hip arthroplasty (~02/2018) History of hydrocelectomy Hx of tonsillectomy Family History Family History Father No problems noted. Mother No problems noted. Social History Social History Household Members: Spouse Household Members Other:: spouse has dementia Housing: House Are you a primary ambulatory care coordinator to a significant other at home: Yes (-has dementia) Do you presently have visiting nurse or other home services: No Alcohol intake: never Patient Tobacco Use Status: Never used Tobacco Smoked in Last 30 Days: No e-Cigarette/Vaping Use: Never Used Second Hand Smoke Exposure: No Use of substances other than those prescribed or required for medical reasons: No Advance Directives: Yes Advance Directives on File: Yes Advance Directives Date on File: 11/01/23 Do you have a plan to hurt others: No Plan service: No Current occupational status: retired Current occupation: right handed Cognitive needs: No Hearing needs: No Vision needs: No Physical Exam 2 Vital Signs: Vital Signs: Last Vital Signs Temp 98.2 F 01/03/25 15:49 Pulse 56 01/03/25 15:49 Resp 16 01/03/25 15:49 BP 125/68 01/03/25 15:49 Pulse Ox 98 01/03/25 15:49 O2 Del Method Room Air 01/03/25 15:49 BMI result Body Mass Index 28.3 Vital signs have been reviewed and appear to be correct. Blood pressure normal. Heart rate normal. Respiratory rate normal. Temperature normal. Oxygen saturation normal. Const: General: cooperative, healthy appearing and no acute distress O rientation/consciousness: oriented to person, oriented to place, oriented to time and patient oriented x3 Limitations: no limitations HEENT: Head: Yes normocephalic and Yes atraumatic Ears: external ears normal General nose exam: Normal external nose present Face and sinus: Yes face symmetric Mouth: oropharynx normal and moist mucous membranes Throat: Yes uvula midline Eyes: Pupils: Equal, round and reactive pupils present Neck: Neck: Yes normal visual inspection and Yes supple Resp: Effort & Inspection: normal respiratory effort and able to speak in complete sentences Auscultation: clear to auscultation bilaterally Cardio: Rate: regular rate Rhythm: regular rhythm Heart sounds: S1 normal heart sound present and S2 normal heart sound present GI: Palpation (GI): Soft to palpation and nontender Auscultation: n ormoactive bowel sounds : General: Yes no CVA tenderness Back/Spine/Pelvis: Back: no CVA tenderness Skin: General skin exam: elasticity normal and turgor normal Neuro: General: oriented to person, oriented to place, oriented to time, patient oriented x3, moves all extremities, no focal motor deficits and CN's II- XI intact bilaterally Cranial nerves: Yes Equal, round and reactive pupils present Cognition (Neuro): normal cognition Extrem: General: Yes full ROM, Yes no calf tenderness and Yes edema (1+ non pitting edema to ankles) Psych: Mental Status: mental status grossly normal Affect: normal affect Thought process: Normal thought process present Medical Decision Making Medical Decision Making [facility] Narrative: Patient is a 74-year-old male with history of HTN, HLD, LVH, COPD, chronic reports of shortness of breath, syncope, nonobstructive coronary artery disease, myasthenia gravis presenting to the emergency department with several days of midsternal chest pain and pressure. On exam patient is awake, A+Ox3, VS WNL, afebrile, normal neurological exam without focal deficits, physical exam findings as above. Given reported symptoms and physical exam findings, initial differential includes but is not limited to ACS, GERD, musculoskeletal pain. Low suspicion for myasthenic crisis. Labs notable for elevated troponin, no delta on repeat trop, no other significant abnormalities. X-ray chest notable for mild cardiomegaly. My interpretation is in agreement with the radiologist's interpretation. EKG shows sinus bradycardia with first-degree AV block with premature supraventricular complexes. Case discussed with Dr. Lares who states patient typically does not complain of chest pain, feels he should be admitted for further evaluation. Admission to medicine accepted by Dr. Benedict. Differential Diagnosis Differential Diagnoses: The differential diagnosis associated with the presentation includes As per [facility] Admission/Observation Consideration of admission/observation: Escalation of care including admission/observation considered Consult Healthcare Provider Management of the patient was discussed with: Hospitalist (Dr. Benedict) and Court Bailiff (Dr. Lares) Lab Data [facility] Lab Attestation statement: I reviewed the patient's lab results. As per [facility] 01/03/25 11:23 01/03/25 11:23 Labs: Lab Results 01/03/25 01/03/25 Range/Units 11:23 14:15 WBC 8.7 (4.8-10.8) X10*3/uL RBC 4.87 (4.60-5.80) X10*6/uL Hgb 13.9 L (14.0-18.0) g/dl Hct 42.6 (42.0-52.0) % MCV 87.5 (80.0-98.0) fL MCH 28.5 (27.0-33.0) pg MCHC 32.6 (31.0-36.0) g/dl RDW 14.4 (11.0-16.0) % Plt Count 184 (160-400) X10*3/uL MPV 10.9 (9.4-12.4) fL Immature Gran % (Auto) 0.5 H (0.0-0.4) % Neut % (Auto) 82.0 H (45-73) % Lymph % (Auto) 7.2 L (20-40) % [place] % (Auto) 8.0 (2-11) % Eos % (Auto) 1.7 (0-4) % Baso % (Auto) 0.6 (0-2) % Lymph # (Auto) 0.6 L (1.2-4.9) X10*3/uL [place] # (Auto) 0.7 (0.1-1.2) X10*3/uL Eos # (Auto) 0.2 (0.0-0.4) X10*3/uL Baso # (Auto) 0.1 (0.0-0.2) X10*3/uL Abs Immat Gran (auto) 0.04 H (0.00-0.03) X10*3/uL Absolute Neuts (auto) 7.1 (2.0-8.3) x10*3/uL Absolute Nucleated RBC 0.000 (0.0-0.012) X10*3/uL Nucleated RBC % (auto) 0.0 (0.0-0.2) /100WBC Sodium 138 (135-145) mmol/L Potassium 4.7 (3.3-5.1) mmol/L Chloride 110 H (96-108) mmol/L Carbon Dioxide 21 L (22-29) mmol/L Anion Gap 12 (12-20) BUN 24 H (9-16) mg/dL Creatinine 0.84 (0.5-1.4) mg/dL Estim Creat Clear Calc 93.5 Estimated GFR > 60 Random Glucose 93 (60-115) mg/dL Calcium 9.1 (8.4-10.2) mg/dL Total Bilirubin 0.5 (0.0-1.0) mg/dL Direct Bilirubin 0.2 (0.0-0.5) mg/dL AST 34 (5-37) U/L ALT 38 (0-40) U/L Alkaline Phosphatase 87 (39-117) U/L Troponin I High Sens 103.9 H* D 112.4 H* (<3.5-35.0) ng/L Total Protein 7.8 (6.5-8.0) g/dL Albumin 4.0 (3.5-5.0) g/dL Lipase 31 (8-78) U/L Independent Interpretation I performed an independent interpretation of an: EKG (EKG shows sinus bradycardia with first-degree AV block with premature supraventricular complexes, rate 58, slightly prolonged QT) and Plain X-Ray Interpretation: Mild cardiomegaly on chest x-ray Radiology Impression Discussion of test interpretation with radiology: I have reviewed the radiologist's reading. Radiologist Impression: XR/XR chest 1V IMPRESSION: 1. Mild cardiomegaly. 2. Stable postoperative changes and scarring right lower lobe. 3. No definite active disease. External Record Review External record reviewed: Inpatient record, Office record and Outpatient record Discharge Plan Discharge Prescriptions: No Action nitroglycerin 0.4 mg tablet, sublingual 0.4 mg sublingual Q5M PRN (Reason: chest pain) Qty: 30 0RF Rx Instructions: do not exceed 3 doses per episode albuterol sulfate [Ventolin HFA] 90 mcg/actuation HFA aerosol inhaler 2 puff inhalation Q4-6H PRN (Reason: Wheezing) Qty: 18 0RF rosuvastatin 5 mg tablet 5 mg PO DAILY 90 Days Qty: 90 3RF omeprazole 20 mg capsule,delayed release(DR/EC) 20 mg PO DAILY Qty: 90 1RF sulfamethoxazole-trimethoprim [Bactrim DS] 800-160 mg tablet 1 tab PO BID 7 Days Qty: 14 0RF amlodipine 2.5 mg tablet 2.5 mg PO DAILY Qty: 90 1RF lisinopril 20 mg tablet 20 mg PO DAILY Qty: 90 3RF levothyroxine 50 mcg tablet 50 mcg PO DAILY Qty: 90 3RF aspirin 81 mg tablet,delayed release (DR/EC) 81 mg PO DAILY Qty: 90 3RF acetaminophen [Tylenol] 325 mg Tablet 650 mg PO Q6H PRN (Reason: Pain) multivitamin Capsule 1 cap PO DAILY prednisone 2.5 mg tablet 1 mg PO BEDTIME clotrimazole-betamethasone 1-0.05 % cream 1 applic topical DAILY PRN (Reason: Rash) pyridostigmine bromide 60 mg tablet 60 mg PO TID amitriptyline 50 mg tablet 50 mg PO BEDTIME 90 Days Qty: 90 0RF azathioprine 50 mg tablet 50 mg PO DAILY Bevespi Aerosphere 9-4.8 mcg HFA aerosol inhaler 2 puff inhalation BID 30 Days Qty: 10.7 5RF meloxicam 15 mg tablet 15 mg PO DAILY Qty: 10 0RF Print Language: Lao
[2025-01-03 13:09] VITALS: BP 124/76; PULSE 59; PULSE 60; RESP 16; O2SAT 98
--- NOTE | 2025-01-03 13:16 | PC.NURSE ---
Pt reports left sided CP x 1 1/2 weeks, intermittent, non rad, and states he thinks after eating pain is worse. Pt rates 4/10 at this time. Denies increased SOB from baseline or dizziness. Skin pink warm and dry. NS on tele. Pt does reports approx 2 weeks ago and increased depression, no SI or HI. Tearful. Awaitis repeat Trop
--- NOTE | 2025-01-03 13:59 | ECG_ITS ---
Test Reason : CHEST PAIN Blood Pressure : */* mmHG Vent. Rate : 58 BPM Atrial Rate : 58 BPM P-R Int : 270 ms QRS Dur : 148 ms QT Int : 496 ms P-R-T Axes : -17 127 -43 degrees QTcB Int : 486 ms Sinus bradycardia with 1st degree A-V block with Premature supraventricular complexes Right axis deviation Right bundle branch block Abnormal ECG When compared with ECG of 03-Jan-2025 10:28, Premature supraventricular complexes are now Present Referred By: Tova Choi Electronically Signed By: Giorgio Lares
[2025-01-03 14:58] LABS: Troponin-I High Sensitivity 112.4 ng/L (<3.5-35.0)
--- OUTSIDE RECORDS SUMMARY | 2025-01-03 15:12 | XMS_ITS | Clinical Summary ---
Author Organization [facility] Address [address] [place] [phone] Care Team Providers Care Ore Grader Name Role Phone Gifty Frankel MD Primary Care Provider [phone] Social History Tobacco Use Types Packs/Day Years [...] age to complete this topic Care Teams Ore Grader Relationship Specialty Start Date End Date Gifty Frankel MD PCP - General Internal Medicine 01/25/21
[2025-01-03 15:49] VITALS: BP 125/68; PULSE 56; RESP 16; TEMP 36.8; O2SAT 98
[2025-01-03] MEDS: Nitroglycerin 0.4 MG TAB.SUBL SUBLINGUAL (18:26)
[2025-01-03 18:27] VITALS: BP 111/70; PULSE 57; RESP 16; O2SAT 98
[2025-01-03 18:32] VITALS: BP 115/68; PULSE 56; RESP 16; O2SAT 96
--- NOTE | 2025-01-03 18:32 | PC.NURSE ---
CP 4/10 prior to Nitro and states pain has resolved s/p one dose of Nitro, Tova BLOW PIT HELPER aware
--- NOTE | 2025-01-03 18:50 | P.HPHOSP_ITS ---
History of Present Illness Date of Service: 01/03/25 Attending physician on admission: Ruben Conde Chief Complaint: Chest pain Pt is a 74-year-old male with a PMH significant for?HTN, HLD, myasthenia gravis, HFpEF, non-obstructive CAD, COPD, spondylolysis lumbosacral spine with radiculopathy, hypothyroidism, and adrenal insufficiency who presents to the ED for evaluation of left-sided chest pain x2 days. Pt reports that his of over 50 years 2 days prior on Monday. had a significant hx of dementia and two previous strokes. Pt reports later that day developed left- sided, nonradiating, and constant chest pressure. Reports worsens after eating. Has had increased anxiety, but no nausea, vomiting, or diaphoresis. Pt with chronic SOB and weakness secondary to myasthenia gravis, both around baseline. Denies cough. No headache. Denies left arm, jaw, or neck pain. Chest pain was not alleviated by home nitroglycerin, though pt notes his prescription was many years old. Was given nitroglycerin sublingual in the ED which he reports alleviated symptoms. Pt states is no longer currently experiencing chest pain or pressure. In the ED pt's vitals were stable and WNL, satting at 98% on RA. Labs were significant for initial troponin 103.9 with repeat flat at 112.4, otherwise grossly unremarkable and around baseline for pt. No leukocytosis. Stable H&H. No significant electrolyte abnormalities. Renal and hepatic function WNL. CXR negative for active disease, but showed mild cardiomegaly with stable postoperative changes and scarring to right lower lobe. EKG demonstrated sinus rhythm with sinus arrhythmia and 1st degree AV block but no significant ST elevations or depressions. Repeat EKG with sinus bradycardia of 58, first- degree AV block, and premature supraventricular complexes. Pt was treated with nitrogylcerin. Pt will be admitted to the hospital under observation for further evaluation of atypical left-sided chest pain in the setting of elevated troponins. 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 Mother No problems noted. Surgical History History of right inguinal hernia repair (~10/31/23) History of carpal tunnel surgery Hx of hand surgery History of left inguinal hernia repair S/P insertion of spinal cord stimulator History of colonoscopy History of lung surgery (~11/2020) History of total right hip arthroplasty (~02/2018) History of hydrocelectomy Hx of tonsillectomy Social History Household Members: Spouse Household Members Other:: spouse has dementia Housing: House Are you a primary special needs child caregiver to a significant other at home: Yes (-has dementia) Do you presently have visiting nurse or other home services: No Alcohol intake: never Patient Tobacco Use Status: Never used Tobacco Smoked in Last 30 Days: No e-Cigarette/Vaping Use: Never Used Second Hand Smoke Exposure: No Use of substances other than those prescribed or required for medical reasons: No Advance Directives: Yes Advance Directives on File: Yes Advance Directives Date on File: 11/01/23 Do you have a plan to hurt others: No Plan Nutrition Risks: No Nutritional Risk service: No Current occupational status: retired Current occupation: right handed Cognitive needs: No Hearing needs: No Vision needs: No Meds Allergies Allergy/AdvReac Type Severity Reaction Status Date / Time No Known Allergies Allergy Verified 01/03/25 10:34 [No Known Allergies*] Active Medications: Current Medications Nitroglycerin (Nitroglycerin 0.4 Mg Tab.Subl) 0.4 mg SUBLINGUAL Q5MX3 PRN PRN Reason: Chest Pain Last Admin: 01/03/25 18:26 Dose: 0.4 mg Home Medications ?Medication ?Instructions ?Recorded ?Confirmed ?Last Taken ?Type clotrimazole-betamethasone 1 1 applic topical DAILY PRN Rash 08/18/20 01/03/25 Unknown History %-0.05 % topical cream acetaminophen 325 mg tablet 650 mg PO Q6H PRN Pain 08/28/20 01/03/25 10/04/22 History (Tylenol) azathioprine 50 mg tablet 50 mg PO DAILY 12/07/23 01/03/25 01/03/25 History glycopyrrolate 9 mcg-formoterol 2 puff inhalation BID 01/03/25 01/03/25 01/03/25 History 4.8 mcg HFA aerosol inhaler (Bevespi Aerosphere) levothyroxine 50 mcg tablet 50 mcg PO DAILY@0600 01/03/25 01/03/25 01/03/25 History multivitamin 1 tab PO DAILY 01/03/25 01/03/25 01/03/25 History omeprazole 20 mg capsule,delayed 20 mg PO DAILY@0630 01/03/25 01/03/25 01/03/25 History release prednisone 5 mg tablet 5 mg PO DAILY 01/03/25 01/03/25 01/03/25 History pyridostigmine bromide 60 mg tablet 60 - 120 mg PO TID 01/03/25 01/03/25 01/03/25 09:00 History Physical Exam 2 Vital Signs and Narrative: Vital Signs: Last Vital Signs Temp 98.2 F 01/03/25 15:49 Pulse 56 01/03/25 18:32 Resp 16 01/03/25 18:32 BP 115/68 01/03/25 18:32 Pulse Ox 96 01/03/25 18:32 O2 Del Method Room Air 01/03/25 18:27 BMI result Body Mass Index 28.3 General: AOx3, no acute distress Resp: CTA bilaterally CVS: S1, S2, RRR GI: +BS, NT, no distention Skin: Warm, dry Neuro: Cranial nerves II-XII grossly intact bilaterally. Motor grossly intact bilaterally Extremities: No edema Psych: Appropriate affect Results Labs 01/03/25 11:23 01/03/25 11:23 Labs: Laboratory Results - last 24 hr 01/03/25 11:23 MCV 87.5 MCH 28.5 MCHC 32.6 RDW 14.4 Plt Count 184 MPV 10.9 Immature Gran % (Auto) 0.5 H Neut % (Auto) 82.0 H Lymph % (Auto) 7.2 L [place] % (Auto) 8.0 Eos % (Auto) 1.7 Baso % (Auto) 0.6 Lymph # (Auto) 0.6 L [place] # (Auto) 0.7 Eos # (Auto) 0.2 Baso # (Auto) 0.1 Abs Immat Gran (auto) 0.04 H Absolute Neuts (auto) 7.1 Absolute Nucleated RBC 0.000 Nucleated RBC % (auto) 0.0 Anion Gap 12 Estim Creat Clear Calc 93.5 Estimated GFR > 60 Random Glucose 93 Calcium 9.1 Total Bilirubin 0.5 Direct Bilirubin 0.2 AST 34 ALT 38 Alkaline Phosphatase 87 Total Protein 7.8 Albumin 4.0 Lipase 31 Imaging Radiologist's Impressions: Impressions Chest X-Ray 01/03/25 11:06 IMPRESSION: 1. Mild cardiomegaly. 2. Stable postoperative changes and scarring right lower lobe. 3. No definite active disease. Electronically signed by: Serg Rowe MD 01/03/2025 11:23 AM [facility] Assessment and Plan (1) Chest pain: Status: Acute Plan Pt is a 74-year-old male with a PMH significant for?HTN, HLD, myasthenia gravis, HFpEF, non-obstructive CAD, COPD, spondylolysis lumbosacral spine with radiculopathy, hypothyroidism, and adrenal insufficiency who presents to the ED for evaluation of left-sided chest pain x2 days. Pt was treated with nitrogylcerin. Pt will be admitted to the hospital under observation for further evaluation of atypical left-sided chest pain in the setting of elevated troponins. Atypical chest pain Pt experiencing left-sided, nonradiating, constant chest pressure x2 days after of 50 years passed Reports worsens after eating, was alleviated by nitroglycerin in the ED Initial troponin 103.9 with repeat flat at 112.4 Serial EKGs without significant ischemic changes Nitroglycerin p.r.n. Unlikely NSTEMI, but will give aspirin, therapeutic Lovenox x1 Cardiology consult Repeat troponin in the morning Monitor on telemetry Nonobstructive CAD Continue aspirin, statin Myasthenia gravis Continue azathioprine, pyridostigmine, prednisone Hypothyroid his Continue levothyroxine GERD PPI HTN Continue amlodipine and lisinopril COPD Not in acute exacerbation Continue home inhalers Full Code Attending:?Dr. Conde DVT Prophylaxis: Lovenox Pt will be admitted to the hospital under observation for treatment and further evaluation of left sided atypical chest pain in the setting of elevated troponins. Pt will require hospitalization for close monitoring of cardiac function, trending of troponins, and and specialist consultation Cardiology. Quality Stroke Does the patient have a stroke diagnosis?: No VTE Prior VTE?: No VTE Risk Level:: Medical - moderate - high VTE Device Contraindication: Treatment Not Indicated VTE Drug Contraindication: N/A - Med Ordered
--- NOTE | 2025-01-03 18:59 | PHA.MEDREC ---
Addendum entered by Jules Rodriguez 01/03/25 19:05: reviewed Original Note: Pharmacy Consult ? Medication Reconciliation Pharmacy has completed the medication reconciliation. Spoke to patient to confirm med list. Patient states he is not taking Amitriptyline 50 mg, Gabapentin 300 mg, Meloxicam 15 mg. Patient confirmed Prednisone 5 mg daily (from 5 mg QAM and 2.5 Mg QPM). Patient states he only took his morning medications today.
[2025-01-03] MEDS: Enoxaparin Sodium 100 MG/ML SYRINGE SUBCUT (19:44)
[2025-01-03] MEDS: Aspirin Enteric Coated 325 MG TABLET.DR PO (19:44)
[2025-01-03] MEDS: Lidocaine 4 % Patch ADH..PATCH 1 PATCH TRANSDERMA (21:23)
[2025-01-03] MEDS: pyRIDostigmine bromide 60 MG TABLET PO (21:24)
[2025-01-03 21:28] VITALS: BP 112/66; PULSE 59; RESP 20; TEMP 36.8; O2SAT 97
[2025-01-04] VITALS: BP 107/59; PULSE 61; RESP 20; TEMP 36.2; O2SAT 97
[2025-01-04 04:00] VITALS: BP 124/74; PULSE 57; RESP 16; TEMP 36.9; O2SAT 97
[2025-01-04] MEDS: Omeprazole 20 MG CAPSULE.DR PO (06:39)
[2025-01-04] MEDS: Levothyroxine Sodium 50 MCG TABLET PO (06:39)
[2025-01-04 07:08] LABS: Hematocrit 41.7 % (42.0-52.0); Hemoglobin 13.4 g/dl (14.0-18.0); Mean Corpuscular HGB Conc 32.1 g/dl (31.0-36.0); Mean Corpuscular Hemoglobin 28.2 pg (27.0-33.0); Mean Corpuscular Volume 87.8 fL (80.0-98.0); Mean Platelet Volume 11.1 fL (9.4-12.4); Platelet Count 182 X10*3/uL (160-400); Red Blood Count 4.75 X10*6/uL (4.60-5.80); Red Cell Distribution Width 14.4 % (11.0-16.0)
[2025-01-04 07:21] LABS: Anion Gap 12 (12-20); Blood Urea Nitrogen 21 mg/dL (9-16); Carbon Dioxide 24 mmol/L (22-29); Chloride 107 mmol/L (96-108); Creatinine Clr Calc Pharmacy 79.4; Estimated Glomerular Filt Rate > 60; Glucose Random 87 mg/dL (60-115); Potassium 4.4 mmol/L (3.3-5.1); Sodium 139 mmol/L (135-145)
[2025-01-04 07:31] VITALS: BP 121/76; PULSE 57; RESP 18; TEMP 37.5; O2SAT 96
[2025-01-04 07:38] LABS: Troponin-I High Sensitivity 165.7 ng/L (<3.5-35.0)
[2025-01-04] MEDS: predniSONE 5 MG TABLET PO (08:23)
[2025-01-04] MEDS: pyRIDostigmine bromide 60 MG TABLET PO ×3 (08:23→20:41)
[2025-01-04] MEDS: Aspirin Enteric Coated 81 MG TABLET.DR PO (08:23)
[2025-01-04] MEDS: azaTHIOprine 50 MG TABLET PO (08:23)
[2025-01-04] MEDS: Multivitamin TABLET 1 TAB PO (08:23)
[2025-01-04] MEDS: Atorvastatin Calcium 10 MG TABLET PO (08:23)
[2025-01-04] MEDS: amLODIPine Besylate 2.5 MG TABLET PO (08:23)
[2025-01-04] MEDS: Lidocaine 4 % Patch ADH..PATCH 1 PATCH TRANSDERMA (08:24)
[2025-01-04] MEDS: lisinopriL 20 MG TABLET PO (08:24)
[2025-01-04] MEDS: 0.9 % Sodium Chloride Flush 3 ML SYRINGE IVFLUSH ×4 (08:27→20:44)
[2025-01-04] MEDS: Acetaminophen 325 MG TABLET 650 MG PO ×2 (08:50→20:42)
[2025-01-04 11:36] VITALS: BP 109/69; PULSE 74; RESP 16; TEMP 36.9; O2SAT 97
--- NOTE | 2025-01-04 12:31 | P.PNIM_ITS ---
Subjective Subjective Date of Service: 01/04/25 Interval History: f/u on chest pain no more chest pain, enzymes flat Physical Exam 2 Const: Other: General: AO X 3, no acute distress Resp: CTA bilateral CVS: S1,S2,RRR GI: +BS, NT, no distention Skin: No rash Neuro: motor grossly intact Psych: appropriate affect Objective Data Active Medications Acetaminophen (Acetaminophen 325 Mg Tablet) 650 mg PO Q6H PRN PRN Reason: Pain, Mild 1-3,fever,headache Last Admin: 01/04/25 20:42 Dose: 650 mg Documented By: ALLAN Albuterol Sulfate (Albuterol Sulfate 90 Mcg 8 Gm Inhaler) 2 puff INHALE Q4H PRN PRN Reason: Wheezing Amlodipine Besylate (Amlodipine Besylate 2.5 Mg Tablet) 2.5 mg PO DAILY [facility]; Protocol Last Admin: 01/05/25 09:16 Dose: 2.5 mg Documented By: MARLENE Aspirin (Aspirin Enteric Coated 81 Mg Tablet.) 81 mg PO DAILY [facility] Last Admin: 01/05/25 09:16 Dose: 81 mg Documented By: MARLENE Atorvastatin Calcium (Atorvastatin Calcium 10 Mg Tablet) 10 mg PO DAILY [facility] Last Admin: 01/05/25 09:16 Dose: 10 mg Documented By: MARLENE Azathioprine (Azathioprine 50 Mg Tablet) 50 mg PO DAILY [facility] Last Admin: 01/05/25 09:16 Dose: 50 mg Documented By: MARLENE Calcium Carbonate (Calcium Carbonate 750 Mg Tab.Chew) 750 mg PO Q4H PRN PRN Reason: Heartburn Levothyroxine Sodium (Levothyroxine Sodium 50 Mcg Tablet) 50 mcg PO DAILY@0600 [facility] Last Admin: 01/05/25 05:56 Dose: 50 mcg Documented By: ALLAN Lidocaine (Lidocaine 4 % Patch Adh..Patch) 1 patch TRANSDERMA DAILY [facility]; Protocol Last Admin: 01/05/25 09:17 Dose: 1 patch Documented By: MARLENE Lisinopril (Lisinopril 20 Mg Tablet) 20 mg PO DAILY [facility]; Protocol Last Admin: 01/05/25 09:16 Dose: 20 mg Documented By: MARLENE Magnesium Hydroxide (Milk Of Magnesia 30 Ml Oral.Susp) 30 ml PO DAILY PRN PRN Reason: Constipation Last Admin: 01/05/25 09:22 Dose: 30 ml Documented By: MARLENE Melatonin (Melatonin 3 Mg Tablet) 6 mg PO BEDTIME PRN PRN Reason: Insomnia Multivitamins/Vitamin C (Multivitamin Tablet) 1 tab PO DAILY [facility] Last Admin: 01/05/25 09:16 Dose: 1 tab Documented By: MARLENE Nitroglycerin (Nitroglycerin 0.4 Mg Tab.Subl) 0.4 mg SUBLINGUAL Q5MX3 PRN PRN Reason: Chest Pain Last Admin: 01/03/25 18:26 Dose: 0.4 mg Documented By: VENKATA Nitroglycerin (Nitroglycerin 0.4 Mg Tab.Subl) 0.4 mg SUBLINGUAL Q5MX3 PRN PRN Reason: Chest Pain Omeprazole (Omeprazole 20 Mg Capsule.Dr) 20 mg PO DAILY@0630 [facility] Last Admin: 01/05/25 05:56 Dose: 20 mg Documented By: ALLAN Ondansetron HCl (Ondansetron Hcl 4 Mg/2 Ml Vial) 4 mg IVPUSH Q8H PRN PRN Reason: Nausea and Vomiting Prednisone (Prednisone 5 Mg Tablet) 5 mg PO DAILY [facility] Last Admin: 01/05/25 09:16 Dose: 5 mg Documented By: MARLENE Pyridostigmine [place] (Pyridostigmine [place] 60 Mg Tablet) 60 - 120 mg PO TID [facility] Last Admin: 01/05/25 09:16 Dose: 60 mg Documented By: MARLENE Sodium Chloride (0.9 % Sodium Chloride Flush 3 Ml Syringe) 3 ml IVFLUSH QSHIFT [facility] Last Admin: 01/05/25 09:16 Dose: 3 ml Documented By: MARLENE Labs 01/04/25 06:29 01/04/25 06:29 Assessment and Plan (1) LVH (left ventricular hypertrophy): Status: Acute (2) CAD (coronary artery disease): Status: Acute (3) Chest discomfort: Status: Acute Plan Pt is a 74-year-old male with a PMH significant for?HTN, HLD, myasthenia gravis, HFpEF, non-obstructive CAD, COPD, spondylolysis lumbosacral spine with radiculopathy, hypothyroidism, and adrenal insufficiency who presents to the ED for evaluation of left-sided chest pain x2 days. Pt was treated with nitrogylcerin. Pt will be admitted to the hospital under observation for further evaluation of atypical left-sided chest pain in the setting of elevated troponins. Atypical chest pain, h/o nonobstructive CAD, with mild increase in troponin. cardiology advises stress on monday nitro PRN continue ASA, statin h/o Myasthenia gravis Continue azathioprine, pyridostigmine, prednisone Hypothyroid his Continue levothyroxine GERD PPI HTN Continue amlodipine and lisinopril COPD Not in acute exacerbation Continue home inhalers Full Code Attending:?Dr. Conde DVT Prophylaxis: Lovenox Awaiting stress late enty note from 01/04 Quality Stroke Does the patient have a stroke diagnosis?: No VTE Prior VTE?: No VTE Risk Level:: Medical - moderate - high VTE Device Contraindication: Treatment Not Indicated VTE Drug Contraindication: N/A - Med Ordered
--- NOTE | 2025-01-04 12:34 | P.CONCA_ITS ---
History of Present Illness History of Present Illness Date of Service: 01/04/25 Requesting physician: Jorge Luis Villalobos Chief complaint: Chest Pain Narrative: [age] year gentleman presenting with chest pain. He has known history of hypertension, hyperlipidemia, left ventricular hypertrophy, COPD and chronic dyspnea on exertion and nonobstructive coronary artery disease. He had a coronary CTA done in November of 2022 which showed moderate proximal LAD stenosis of 50 60%, mid LAD 25% and 1st OM proximally 50% stenosis. At that time we discussed about diagnostic angiography but after some discussion patient decided to not do any further testing. He also has myasthenia gravis. His was sick and on Monday. Yesterday he started feeling left- sided pressure-like feeling. This lasted for 1-1/2 hours. He took an nitroglycerin at home which did not work but when he came to the emergency department nitroglycerin was given to him which improved his symptoms. His high sensitivity troponin levels were 103, 112 and 165. He is quite emotional about of his . He has known acid reflux but it has been stable and he has been taking omeprazole. 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) Back pain Arthritis JULIEN (dyspnea on exertion) Disc degeneration, lumbar Hyperglycemia Abdominal pain Pulmonary nodule Hyperlipidemia COPD (chronic obstructive pulmonary disease) Myasthenia gravis Scoliosis Spondylosis of lumbosacral spine with radiculopathy Degenerative disc disease, lumbar Hypothyroid Leg cramps Emphysema of lung Iron deficiency anemia Osteoarthritis Diastolic dysfunction Hypertension Incomplete emptying of bladder due to benign prostatic hyperplasia Nocturia associated with benign prostatic hyperplasia BPH loc w urin obs/LUTS Family History Family History Father No problems noted. Mother No problems noted. Surgical History Surgical History History of right inguinal hernia repair (~10/31/23) History of carpal tunnel surgery Hx of hand surgery History of left inguinal hernia repair S/P insertion of spinal cord stimulator History of colonoscopy History of lung surgery (~11/2020) History of total right hip arthroplasty (~02/2018) History of hydrocelectomy Hx of tonsillectomy Social History Social History Household Members: None Household Members Other:: spouse has dementia Housing: House Are you a primary resident care provider to a significant other at home: Yes (-has dementia) Do you presently have visiting nurse or other home services: No Alcohol intake: never Patient Tobacco Use Status: Never used Tobacco e-Cigarette/Vaping Use: Never Used Second Hand Smoke Exposure: No Advance Directives Date on File: 11/01/23 service: No Current occupational status: retired Current occupation: right handed Cognitive needs: No Hearing needs: No Vision needs: No Meds Allergies Allergy/AdvReac Type Severity Reaction Status Date / Time No Known Allergies Allergy Verified 01/03/25 10:34 [No Known Allergies*] Active Medications: Current Medications Acetaminophen (Acetaminophen 325 Mg Tablet) 650 mg PO Q6H PRN PRN Reason: Pain, Mild 1-3,fever,headache Last Admin: 01/04/25 08:50 Dose: 650 mg Albuterol Sulfate (Albuterol Sulfate 90 Mcg 8 Gm Inhaler) 2 puff INHALE Q4H PRN PRN Reason: Wheezing Amlodipine Besylate (Amlodipine Besylate 2.5 Mg Tablet) 2.5 mg PO DAILY [facility]; Protocol Last Admin: 01/04/25 08:23 Dose: 2.5 mg Aspirin (Aspirin Enteric Coated 81 Mg Tablet.Dr) 81 mg PO DAILY [facility] Last Admin: 01/04/25 08:23 Dose: 81 mg Atorvastatin Calcium (Atorvastatin Calcium 10 Mg Tablet) 10 mg PO DAILY [facility] Last Admin: 01/04/25 08:23 Dose: 10 mg Azathioprine (Azathioprine 50 Mg Tablet) 50 mg PO DAILY [facility] Last Admin: 01/04/25 08:23 Dose: 50 mg Calcium Carbonate (Calcium Carbonate 750 Mg Tab.Chew) 750 mg PO Q4H PRN PRN Reason: Heartburn Levothyroxine Sodium (Levothyroxine Sodium 50 Mcg Tablet) 50 mcg PO DAILY@0600 [facility] Last Admin: 01/04/25 06:39 Dose: 50 mcg Lidocaine (Lidocaine 4 % Patch Adh..Patch) 1 patch TRANSDERMA DAILY [facility]; Protocol Last Admin: 01/04/25 08:24 Dose: 1 patch Lisinopril (Lisinopril 20 Mg Tablet) 20 mg PO DAILY [facility]; Protocol Last Admin: 01/04/25 08:24 Dose: 20 mg Magnesium Hydroxide (Milk Of Magnesia 30 Ml Oral.Susp) 30 ml PO DAILY PRN PRN Reason: Constipation Melatonin (Melatonin 3 Mg Tablet) 6 mg PO BEDTIME PRN PRN Reason: Insomnia Multivitamins/Vitamin C (Multivitamin Tablet) 1 tab PO DAILY [facility] Last Admin: 01/04/25 08:23 Dose: 1 tab Nitroglycerin (Nitroglycerin 0.4 Mg Tab.Subl) 0.4 mg SUBLINGUAL Q5MX3 PRN PRN Reason: Chest Pain Last Admin: 01/03/25 18:26 Dose: 0.4 mg Nitroglycerin (Nitroglycerin 0.4 Mg Tab.Subl) 0.4 mg SUBLINGUAL Q5MX3 PRN PRN Reason: Chest Pain Omeprazole (Omeprazole 20 Mg Capsule.Dr) 20 mg PO DAILY@0630 [facility] Last Admin: 01/04/25 06:39 Dose: 20 mg Ondansetron HCl (Ondansetron Hcl 4 Mg/2 Ml Vial) 4 mg IVPUSH Q8H PRN PRN Reason: Nausea and Vomiting Prednisone (Prednisone 5 Mg Tablet) 5 mg PO DAILY [facility] Last Admin: 01/04/25 08:23 Dose: 5 mg Pyridostigmine [place] (Pyridostigmine [place] 60 Mg Tablet) 60 - 120 mg PO TID [facility] Last Admin: 01/04/25 08:23 Dose: 60 mg Sodium Chloride (0.9 % Sodium Chloride Flush 3 Ml Syringe) 3 ml IVFLUSH QSHIFT [facility] Last Admin: 01/04/25 08:27 Dose: 3 ml Home Medications ?Medication ?Instructions ?Recorded ?Confirmed ?Last Taken ?Type clotrimazole-betamethasone 1 1 applic topical DAILY PRN Rash 08/18/20 01/03/25 Unknown History %-0.05 % topical cream acetaminophen 325 mg tablet 650 mg PO Q6H PRN Pain 08/28/20 01/03/25 10/04/22 History (Tylenol) azathioprine 50 mg tablet 50 mg PO DAILY 02/11/2901/03/25 01/03/25 History glycopyrrolate 9 mcg-formoterol 2 puff inhalation BID 01/03/25 01/03/25 01/03/25 History 4.8 mcg HFA aerosol inhaler (Bevespi Aerosphere) levothyroxine 50 mcg tablet 50 mcg PO DAILY@0600 01/03/25 01/03/25 01/03/25 History multivitamin 1 tab PO DAILY 01/03/25 01/03/25 01/03/25 History omeprazole 20 mg capsule,delayed 20 mg PO DAILY@0630 01/03/25 01/03/25 01/03/25 History release prednisone 5 mg tablet 5 mg PO DAILY 01/03/25 01/03/25 01/03/25 History pyridostigmine bromide 60 mg tablet 60 - 120 mg PO TID 01/03/25 01/03/25 01/03/25 09:00 History Physical Exam 2 Vital Signs: Vital Signs: Last Vital Signs Temp 98.5 F 01/04/25 11:36 Pulse 74 01/04/25 11:36 Resp 16 01/04/25 11:36 BP 109/69 01/04/25 11:36 Pulse Ox 97 01/04/25 11:36 O2 Del Method Room Air 01/04/25 11:36 BMI result Body Mass Index 28.3 GENERAL APPEARANCE: in no acute distress, pleasant. NECK: no carotid bruit, no jugular venous distention. SKIN: no suspicious lesions, warm and dry. HEART: no murmurs, regular rate and rhythm. LUNGS: clear to auscultation bilaterally. ABDOMEN: soft, nontender. EXTREMITIES: no edema. PERIPHERAL PULSES: equal. NEUROLOGIC: No gross deficits, AAO X 3 Objective Labs and Meds 01/04/25 06:29 01/04/25 06:29 Lab results: Laboratory Results - last 24 hr 01/03/25 01/04/25 14:15 06:29 WBC 7.0 RBC 4.75 Hgb 13.4 L Hct 41.7 L MCV 87.8 MCH 28.2 MCHC 32.1 RDW 14.4 Plt Count 182 MPV 11.1 Absolute Nucleated RBC 0.000 Nucleated RBC % (auto) 0.0 Sodium 139 Potassium 4.4 Chloride 107 Carbon Dioxide 24 Anion Gap 12 BUN 21 H Creatinine 0.99 Estim Creat Clear Calc 79.4 Estimated GFR > 60 Random Glucose 87 Calcium 9.0 Troponin I High Sens 112.4 H* 165.7 H* Assessment and Plan (1) Chest pain: Status: Acute Plan [age] gentleman presenting with chest pain on background of [id number] coronary artery disease by coronary CTA. He had a stressful event in his couple of days ago. He has known history of myasthenia gravis and has chronic dyspnea on exertion and previously was unable to exercise on treadmill. We discussed about doing stress testing and he is saying he may not be able to exercise on treadmill. We will arrange a Lexiscan for him. He does have a bifascicular block and we have to observe him closely during regadenoson injection for any block. Hemodynamically stable otherwise. We will arrange stress testing and based on that go forward with discharge versus diagnostic angiography if there is any significant issues noted. Thank you for allowing me to participate in the care of your patient. Please feel free to contact me if you have any questions. Procedures Date of Service Date of Service: 01/04/25
--- NOTE | 2025-01-04 14:57 | MHC.CM.PN ---
Addendum entered by Hafsa Muhammad 01/04/25 15:02: Patient requested a MOLST form. Notified MD. Place form at bedside. Original Note: JOSH 01/04/25 DX Chest pain. Patient lived with his . She 3 days ago. He states that he is independent with ADLs. He uses a cane. no services in place. DP home self care. [place] [facility] [place] He will self transport home.
[2025-01-04 15:54] VITALS: BP 108/62; PULSE 57; RESP 16; TEMP 37.2; O2SAT 97
[2025-01-04 20:38] VITALS: BP 113/70; PULSE 55; RESP 16; TEMP 37; O2SAT 96
[2025-01-05] VITALS: BP 107/67; PULSE 56; RESP 20; TEMP 36.5; O2SAT 97
[2025-01-05 04:00] VITALS: BP 106/69; PULSE 58; RESP 20; TEMP 36.6; O2SAT 99
[2025-01-05] MEDS: Levothyroxine Sodium 50 MCG TABLET PO (05:56)
[2025-01-05] MEDS: Omeprazole 20 MG CAPSULE.DR PO (05:56)
[2025-01-05 08:00] VITALS: BP 129/79; PULSE 57; RESP 18; TEMP 36.8; O2SAT 98
[2025-01-05] MEDS: lisinopriL 20 MG TABLET PO (09:16)
[2025-01-05] MEDS: amLODIPine Besylate 2.5 MG TABLET PO (09:16)
[2025-01-05] MEDS: pyRIDostigmine bromide 60 MG TABLET PO ×3 (09:16→20:20)
[2025-01-05] MEDS: predniSONE 5 MG TABLET PO (09:16)
[2025-01-05] MEDS: Aspirin Enteric Coated 81 MG TABLET.DR PO (09:16)
[2025-01-05] MEDS: Atorvastatin Calcium 10 MG TABLET PO (09:16)
[2025-01-05] MEDS: azaTHIOprine 50 MG TABLET PO (09:16)
[2025-01-05] MEDS: Multivitamin TABLET 1 TAB PO (09:16)
[2025-01-05] MEDS: 0.9 % Sodium Chloride Flush 3 ML SYRINGE IVFLUSH (09:16)
[2025-01-05] MEDS: Lidocaine 4 % Patch ADH..PATCH 1 PATCH TRANSDERMA (09:17)
[2025-01-05] MEDS: Milk of Magnesia 30 ML ORAL.SUSP PO (09:22)
[2025-01-05 11:41] VITALS: BP 107/62; PULSE 61; RESP 16; TEMP 37.2; O2SAT 97
--- NOTE | 2025-01-05 12:26 | HO.PM.IMPN ---
Subjective Subjective Date of Service: 01/05/25 Interval History: f/u on chest pain no chest pain or sob hemodynamically stable Physical Exam Vital Signs: Vital Signs: Last Vital Signs Temp 98.9 F 01/05/25 11:41 Pulse 61 01/05/25 11:41 Resp 16 01/05/25 11:41 BP 107/62 01/05/25 11:41 Pulse Ox 97 01/05/25 11:41 O2 Del Method Room Air 01/05/25 11:41 BMI result Body Mass Index 28.3 Const: Other: General: AO X 3, no acute distress Resp: CTA bilateral CVS: S1,S2,RRR GI: +BS, NT, no distention Skin: No rash Neuro: motor grossly intact Psych: appropriate affect Objective Data Active Medications Acetaminophen (Acetaminophen 325 Mg Tablet) 650 mg PO Q6H PRN PRN Reason: Pain, Mild 1-3,fever,headache Last Admin: 01/04/25 20:42 Dose: 650 mg Documented By: ALLAN Albuterol Sulfate (Albuterol Sulfate 90 Mcg 8 Gm Inhaler) 2 puff INHALE Q4H PRN PRN Reason: Wheezing Amlodipine Besylate (Amlodipine Besylate 2.5 Mg Tablet) 2.5 mg PO DAILY [facility]; Protocol Last Admin: 01/05/25 09:16 Dose: 2.5 mg Documented By: MARLENE Aspirin (Aspirin Enteric Coated 81 Mg Tablet.Dr) 81 mg PO DAILY [facility] Last Admin: 01/05/25 09:16 Dose: 81 mg Documented By: MARLENE Atorvastatin Calcium (Atorvastatin Calcium 10 Mg Tablet) 10 mg PO DAILY [facility] Last Admin: 01/05/25 09:16 Dose: 10 mg Documented By: MARLENE Azathioprine (Azathioprine 50 Mg Tablet) 50 mg PO DAILY [facility] Last Admin: 01/05/25 09:16 Dose: 50 mg Documented By: MARLENE Calcium Carbonate (Calcium Carbonate 750 Mg Tab.Chew) 750 mg PO Q4H PRN PRN Reason: Heartburn Levothyroxine Sodium (Levothyroxine Sodium 50 Mcg Tablet) 50 mcg PO DAILY@0600 [facility] Last Admin: 01/05/25 05:56 Dose: 50 mcg Documented By: ALLAN Lidocaine (Lidocaine 4 % Patch Adh..Patch) 1 patch TRANSDERMA DAILY [facility]; Protocol Last Admin: 01/05/25 09:17 Dose: 1 patch Documented By: MARLENE Lisinopril (Lisinopril 20 Mg Tablet) 20 mg PO DAILY [facility]; Protocol Last Admin: 01/05/25 09:16 Dose: 20 mg Documented By: MARLENE Magnesium Hydroxide (Milk Of Magnesia 30 Ml Oral.Susp) 30 ml PO DAILY PRN PRN Reason: Constipation Last Admin: 01/05/25 09:22 Dose: 30 ml Documented By: MARLENE Melatonin (Melatonin 3 Mg Tablet) 6 mg PO BEDTIME PRN PRN Reason: Insomnia Multivitamins/Vitamin C (Multivitamin Tablet) 1 tab PO DAILY [facility] Last Admin: 01/05/25 09:16 Dose: 1 tab Documented By: MARLENE Nitroglycerin (Nitroglycerin 0.4 Mg Tab.Subl) 0.4 mg SUBLINGUAL Q5MX3 PRN PRN Reason: Chest Pain Last Admin: 01/03/25 18:26 Dose: 0.4 mg Documented By: VENKATA Nitroglycerin (Nitroglycerin 0.4 Mg Tab.Subl) 0.4 mg SUBLINGUAL Q5MX3 PRN PRN Reason: Chest Pain Omeprazole (Omeprazole 20 Mg Capsule.Dr) 20 mg PO DAILY@0630 [facility] Last Admin: 01/05/25 05:56 Dose: 20 mg Documented By: ALLAN Ondansetron HCl (Ondansetron Hcl 4 Mg/2 Ml Vial) 4 mg IVPUSH Q8H PRN PRN Reason: Nausea and Vomiting Prednisone (Prednisone 5 Mg Tablet) 5 mg PO DAILY [facility] Last Admin: 01/05/25 09:16 Dose: 5 mg Documented By: MARLENE Pyridostigmine [place] (Pyridostigmine [place] 60 Mg Tablet) 60 - 120 mg PO TID [facility] Last Admin: 01/05/25 09:16 Dose: 60 mg Documented By: MARLENE Sodium Chloride (0.9 % Sodium Chloride Flush 3 Ml Syringe) 3 ml IVFLUSH QSHIFT [facility] Last Admin: 01/05/25 09:16 Dose: 3 ml Documented By: MARLENE Labs 01/04/25 06:29 01/04/25 06:29 Assessment and Plan (1) LVH (left ventricular hypertrophy): Status: Acute (2) CAD (coronary artery disease): Status: Acute (3) Chest discomfort: Status: Acute Plan Pt is a 74-year-old male with a PMH significant for?HTN, HLD, myasthenia gravis, HFpEF, non-obstructive CAD, COPD, spondylolysis lumbosacral spine with radiculopathy, hypothyroidism, and adrenal insufficiency who presents to the ED for evaluation of left-sided chest pain x2 days. Pt was treated with nitrogylcerin. Pt will be admitted to the hospital under observation for further evaluation of atypical left-sided chest pain in the setting of elevated troponins. Atypical chest pain, h/o nonobstructive CAD, with mild increase in troponin. cardiology advises stress tommorrow nitro PRN continue ASA, statin h/o Myasthenia gravis Continue azathioprine, pyridostigmine, prednisone Hypothyroid his Continue levothyroxine GERD PPI HTN Continue amlodipine and lisinopril COPD Not in acute exacerbation Continue home inhalers Full Code Attending:?Dr. Conde DVT Prophylaxis: Lovenox Awaiting stress Quality Stroke Does the patient have a stroke diagnosis?: No VTE Prior VTE?: No VTE Risk Level:: Medical - moderate - high VTE Device Contraindication: Treatment Not Indicated VTE Drug Contraindication: N/A - Med Ordered
[2025-01-05 15:46] VITALS: BP 105/62; PULSE 58; RESP 18; TEMP 37.3; O2SAT 95
[2025-01-05 20:00] VITALS: BP 105/65; PULSE 58; RESP 20; TEMP 36.8; O2SAT 97
[2025-01-06] VITALS (7 sets, daily range): BP systolic 100–123; BP diastolic 57–77; PULSE 52–60; RESP 16–20; TEMP 36.6–37.2; O2SAT 96–98; BMI 27.6
--- NOTE | 2025-01-06 07:00 | CA_ITS ---
Transthoracic Echocardiogram Patient (Last, First, Middle): Olegario Leonard C Gender: Male Date of : 1950 Age: 74 Procedure Date: 01/06/2025 Procedure Type: Transthoracic Echocardiogram Location: [facility] [place] Height: 182.88 cm Weight: 94.35 kg BSA: 2.17 m2 Heart Rate: bpm BP: 101 / 58 mmHg Debt Collector: MABEL Referring MD: Ruben Conde MD Hog Worker: Magnus Avalos MD Symptoms: acute coronary syndrome Study Quality: Adequate ECG Rhythm: Sinus Conclusions: - 1. Normal LV ejection fraction of 60-65% with mild LVH with grade 2 diastolic dysfunction 2. Mild calcific aortic and mitral annulus changes noted 3. No gross pericardial effusion Findings Left Ventricle Normal left ventricular size and systolic function. There is mildly increased left ventricular wall thickness. The visually estimated ejection fraction is between 60-65%. Spectral Doppler is indicative of a pseudonormal filling pattern. E/E prime ratio is >15, consistent with elevated filling pressures. Evidence suggests grade II (moderate) diastolic dysfunction. Right Ventricle Normal right ventricular cavity size. There is normal right ventricular systolic function. Atria The left atrium is moderately dilated. Interatrial shunt cannot be excluded. The right atrium is mildly dilated. Aortic Valve The aortic valve was not well visualized. There is mild calcification of the aortic valve. There is no aortic valve stenosis. There is no aortic valve regurgitation. Mitral Valve There is mild posterior mitral leaflet thickening. There is mild mitral annular calcification. There is trace mitral valve regurgitation. There is no mitral valve stenosis. Pulmonic Valve The pulmonic valve was not well visualized. Tricuspid Valve Likely normal tricuspid valve structure and function. Tricuspid regurgitation envelope is inadequate for calculation of right ventricular systolic pressure. Great Vessels The aorta was not well visualized. The pulmonary artery was not well visualized. Venous The inferior vena cava is mildly dilated and collapses greater than 50% with inspiration. Pericardium/Pleural There is no evidence of pericardial effusion. Prior Study Comparison No significant change compared to prior study dated: 07/21/2023. Measurements 2D Linear Measurements IVSd: 1.39 0.6-0.9/0.6-1.0 cm LVIDd: 5.13 3.9-5.3/4.2-5.9 cm LVIDd Index: 2.36 2.4-3.2/2.2-3.1 cm/m2 LVIDs: 2.89 2.0-3.6 cm LVPWd: 1.31 0.7-1.1 cm LA Diam: 5.30 2.7-3.8/3.0-4.0 cm LAIDs Index: 2.44 1.5-2.3 cm/m2 LV Mass: 358.84 67-162/88-224 g LV Mass Index: 165.37 43-95/49-115 g/m2 LVOT Diam: 2.10 3.0+(-)1.3 cm 2D Systolic Function EF 4C: 67.40 >55% EF 2C: 58.70 >55% EF BiP: 62.70 >55% Mitral Valve MV Pk E: 0.98 MV PK A: 0.31 MV Decel Time: 223.00 E/A: 3.20 E'Lateral: 3.06 E'Medial: 2.50 E/E' Med: 39.10 E/E' Lat: 31.90 PHT: 65.00 MVA PHT: 3.38 Decel Emmet: 4.37 Aortic Valve AoV Pk Van: 1.61 AoV Mn Van: 1.12 AoV VTI: 0.33 AoV Pk Grad: 10.00 Aov Mn Grad: 6.00 KATHIA Cont.VTI: 2.28 LVOT LVOT Pk Van: 1.23 LVOT Mn Van: 0.74 LVOT VTI: 0.22 LVOT Pk Grad: 6.00 LVOT Mn Grad: 3.00 LVOT Diam: 2.10 LVOT Area: 3.46 Diastolic Function MV Pk E: 0.98 MV Pk A: 0.31 E/A: 3.20 E'Medial: 2.50 E/E' Med: 39.10 E' Laterial: 3.06 E/E' Lat: 31.90 Right Ventricle TAPSE (mm): 19.80 TVS' Van: 12.50 Tricuspid Valve RA Press: 8.00 Great Vessels Aorta Ao Asc: 3.10 2.1-3.4 cm Updated in Other Vendor System with Status of Final Magnus Avalos MD electronically signed on 01/06/2025 11:59:37 AM with status of Final
[2025-01-06] MEDS: azaTHIOprine 50 MG TABLET PO (09:19)
[2025-01-06] MEDS: Lidocaine 4 % Patch ADH..PATCH 1 PATCH TRANSDERMA (09:20)
[2025-01-06] MEDS: 0.9 % Sodium Chloride Flush 3 ML SYRINGE IVFLUSH (09:21)
[2025-01-06] MEDS: lisinopriL 20 MG TABLET PO (09:22)
[2025-01-06] MEDS: Atorvastatin Calcium 10 MG TABLET PO (09:22)
[2025-01-06] MEDS: amLODIPine Besylate 2.5 MG TABLET PO (09:22)
[2025-01-06] MEDS: Aspirin Enteric Coated 81 MG TABLET.DR PO (09:22)
[2025-01-06] MEDS: pyRIDostigmine bromide 60 MG TABLET PO ×3 (09:22→21:37)
[2025-01-06] MEDS: Multivitamin TABLET 1 TAB PO (09:22)
[2025-01-06] MEDS: predniSONE 5 MG TABLET PO (09:22)
--- NOTE | 2025-01-06 09:36 | P.PNCA_ITS ---
Subjective Subjective Date of Service: 01/06/25 Principal diagnosis: Acute coronary syndrome Interval history: patient is currently not having any active chest pain. Blood pressure is well controlled. Troponins were not checked after the last troponin of 160 yesterday. No other active symptoms. No overnight arrhythmias Review of Systems Review of Systems Yes all other systems are reviewed and are negative Physical Exam Vital Signs: Last Vital Signs Temp 98.6 F 01/06/25 07:46 Pulse 54 01/06/25 07:46 Resp 20 01/06/25 07:46 BP 123/77 01/06/25 07:46 Pulse Ox 98 01/06/25 07:46 O2 Del Method Room Air 01/06/25 07:46 BMI result Body Mass Index 28.3 Const General: cooperative, comfortable, no acute distress, alert and awake Nutritional Appearance: overweight Orientation/consciousness: patient oriented x3 Neck Neck: Yes trachea midline, Yes supple and Yes no JVD Resp Effort & Inspection: normal respiratory effort Auscultation: clear to auscultation bilaterally and diminished lung sounds Cardio Jugular venous distension: no JVD Rate: regular rate Rhythm: regular rhythm Heart sounds: S1 normal heart sound present, S2 normal heart sound present, no click, no gallops, no murmurs and no rubs GI Auscultation: normal bowel sounds Skin General skin exam: no rashes or lesions noted Neuro General: patient oriented x3 and no focal motor deficits Extrem General: Yes no clubbing, cyanosis or edema Objective Labs and Meds 01/04/25 06:29 01/04/25 06:29 Progress Note: A&P Assessment and plan (1) Acute coronary syndrome: Status: Acute Assessment and Plan: acute coronary syndrome symptoms as well as EKG changes with elevated troponin in the patient with prior coronary disease although nonobstructive. Potential etiologies include change in plaque morphology with either rupture or erosion and/or stress-induced cardiomyopathy given the recent tragedy in his life. Patient was currently chest pain-free. Would start him on IV heparin. Discussed with him about pursuing invasive route versus stress testing. Given his symptoms as well as elevated troponin I would suggest him to undergo cardiac catheterization. We discussed the risks, benefits, alternatives. He understands and agrees. Will transfer to [facility] for the same. Message has been called to the team at [facility]. Continue high-intensity statin therapy as well as aspirin. Continue blood pressure control with lisinopril and amlodipine. Heart rate is on low side and avoid metoprolol. P.r.n. nitroglycerin. Will follow up if patient was not transferred. Time Spent With Patient Time: Total time managing care of this patient today ____ minutes. Progress Note: Quality Stroke Does the patient have a stroke diagnosis?: No Procedures Date of Service Date of Service: 01/06/25
[2025-01-06 09:59] LABS: Hematocrit 45.4 % (42.0-52.0); Hemoglobin 14.9 g/dl (14.0-18.0); Mean Corpuscular HGB Conc 32.8 g/dl (31.0-36.0); Mean Corpuscular Hemoglobin 28.7 pg (27.0-33.0); Mean Corpuscular Volume 87.3 fL (80.0-98.0); Mean Platelet Volume 10.5 fL (9.4-12.4); Platelet Count 197 X10*3/uL (160-400); Red Cell Distribution Width 14.2 % (11.0-16.0); White Blood Count 7.6 X10*3/uL (4.8-10.8)
[2025-01-06] MEDS: Heparin Sodium,Porcine 5,000 UNIT/ML VIAL 4000 UNIT IVPUSH (10:24)
[2025-01-06] MEDS: Heparin Sodium,Porcine/1/2NS 25,000 UNIT/250 ML IV.SOLN 10 UNIT IVCONT (10:25)
[2025-01-06 11:42] LABS: INTERNATIONAL NORM RATIO 1.1 (0.9-1.1); Prothrombin Time 12.9 SEC (10.9-12.4)
[2025-01-06 11:45] LABS: PTT Heparin Drip 29.4 SEC (53-77.9)
--- NOTE | 2025-01-06 13:54 | MHC.CM.PN ---
Pt is transferring to [facility].
[2025-01-06 16:56] LABS: PTT Heparin Drip 53.4 SEC (53-77.9)
--- NOTE | 2025-01-06 21:07 | HO.PM.IMPN ---
Subjective Subjective Date of Service: 01/06/25 Interval History: No chest pain or sob Physical Exam Vital Signs: Vital Signs: Last Vital Signs Temp 98.3 F 01/06/25 20:00 Pulse 58 01/06/25 20:00 Resp 16 01/06/25 20:00 BP 109/61 01/06/25 20:00 Pulse Ox 97 01/06/25 20:00 O2 Del Method Room Air 01/06/25 20:00 BMI result Body Mass Index 27.6 Const: Other: General: AO X 3, no acute distress Resp: CTA bilateral CVS: S1,S2,RRR GI: +BS, NT, no distention Skin: No rash Neuro: motor grossly intact Psych: appropriate affect Objective Data Active Medications Acetaminophen (Acetaminophen 325 Mg Tablet) 650 mg PO Q6H PRN PRN Reason: Pain, Mild 1-3,fever,headache Last Admin: 01/04/25 20:42 Dose: 650 mg Documented By: ALLAN Albuterol Sulfate (Albuterol Sulfate 90 Mcg 8 Gm Inhaler) 2 puff INHALE Q4H PRN PRN Reason: Wheezing Amlodipine Besylate (Amlodipine Besylate 2.5 Mg Tablet) 2.5 mg PO DAILY [facility]; Protocol Last Admin: 01/06/25 09:22 Dose: 2.5 mg Documented By: SHO Aspirin (Aspirin Enteric Coated 81 Mg Tablet.) 81 mg PO DAILY [facility] Last Admin: 01/06/25 09:22 Dose: 81 mg Documented By: SHO Atorvastatin Calcium (Atorvastatin Calcium 10 Mg Tablet) 10 mg PO DAILY [facility] Last Admin: 01/06/25 09:22 Dose: 10 mg Documented By: SHO Azathioprine (Azathioprine 50 Mg Tablet) 50 mg PO DAILY [facility] Last Admin: 01/06/25 09:19 Dose: 50 mg Documented By: SHO Calcium Carbonate (Calcium Carbonate 750 Mg Tab.Chew) 750 mg PO Q4H PRN PRN Reason: Heartburn Heparin Sodium (Porcine) (Heparin Sodium,Porcine 5,000 Unit/Ml Vial) 3,700 unit IVPUSH PROTOCOL BOLUS PRN; Protocol PRN Reason: 40 unit/kg - Heparin Protocol Heparin Sodium (Porcine) (Heparin Sodium,Porcine 5,000 Unit/Ml Vial) 7,400 unit IVPUSH PROTOCOL BOLUS PRN; Protocol PRN Reason: 80 unit/kg - Heparin Protocol Heparin Sodium/Sodium Chloride (Heparin Sodium,Porcine/1/2ns) 25,000 unit in 250 mls @ 0 mls/hr IVCONT .Q0M [facility]; Protocol Last Titration: 01/06/25 17:29 Dose: 10.85 units/kg/hr, 10 mls/hr Documented By: SHO Co-signed By: OTTO Levothyroxine Sodium (Levothyroxine Sodium 50 Mcg Tablet) 50 mcg PO DAILY@0600 [facility] Last Admin: 01/06/25 03:43 Dose: Not Given Documented By: CHRISTINE Non-Admin Reason: npo Lidocaine (Lidocaine 4 % Patch Adh..Patch) 1 patch TRANSDERMA DAILY [facility]; Protocol Last Admin: 01/06/25 09:20 Dose: 1 patch Documented By: SHO Lisinopril (Lisinopril 20 Mg Tablet) 20 mg PO DAILY [facility]; Protocol Last Admin: 01/06/25 09:22 Dose: 20 mg Documented By: SHO Magnesium Hydroxide (Milk Of Magnesia 30 Ml Oral.Susp) 30 ml PO DAILY PRN PRN Reason: Constipation Last Admin: 01/05/25 09:22 Dose: 30 ml Documented By: MARLENE Melatonin (Melatonin 3 Mg Tablet) 6 mg PO BEDTIME PRN PRN Reason: Insomnia Multivitamins/Vitamin C (Multivitamin Tablet) 1 tab PO DAILY [facility] Last Admin: 01/06/25 09:22 Dose: 1 tab Documented By: SHO Nitroglycerin (Nitroglycerin 0.4 Mg Tab.Subl) 0.4 mg SUBLINGUAL Q5MX3 PRN PRN Reason: Chest Pain Last Admin: 01/03/25 18:26 Dose: 0.4 mg Documented By: VENKATA Nitroglycerin (Nitroglycerin 0.4 Mg Tab.Subl) 0.4 mg SUBLINGUAL Q5MX3 PRN PRN Reason: Chest Pain Non-Formulary Medication (Glycopyrrolate-Formoterol [Bevespi Aerosphere]) 2 puff INHALE BID [facility] Omeprazole (Omeprazole 20 Mg Capsule.Dr) 20 mg PO DAILY@0630 [facility] Last Admin: 01/06/25 03:43 Dose: Not Given Documented By: CHRISTINE Non-Admin Reason: npo Ondansetron HCl (Ondansetron Hcl 4 Mg/2 Ml Vial) 4 mg IVPUSH Q8H PRN PRN Reason: Nausea and Vomiting Prednisone (Prednisone 5 Mg Tablet) 5 mg PO DAILY [facility] Last Admin: 01/06/25 09:22 Dose: 5 mg Documented By: SHO Pyridostigmine Nelson (Pyridostigmine Nelson 60 Mg Tablet) 60 - 120 mg PO TID [facility] Last Admin: 01/06/25 14:57 Dose: 60 mg Documented By: SHO Sodium Chloride (0.9 % Sodium Chloride Flush 3 Ml Syringe) 3 ml IVFLUSH QSHIFT [facility] Last Admin: 01/06/25 14:57 Dose: Not Given Documented By: SHO Non-Admin Reason: IV Running Labs 01/06/25 09:39 01/04/25 06:29 Labs: Laboratory Results - last 24 hr 01/06/25 01/06/25 01/06/25 09:39 09:43 16:20 MCV 87.3 MCH 28.7 MCHC 32.8 RDW 14.2 Plt Count 197 MPV 10.5 Absolute Nucleated RBC 0.000 Nucleated RBC % (auto) 0.0 PT 12.9 H INR 1.1 aPTT Heparin Protocol 29.4 L 53.4 D Hold Green Top See Note Assessment and Plan (1) LVH (left ventricular hypertrophy): Status: Acute (2) CAD (coronary artery disease): Status: Acute (3) Chest discomfort: Status: Acute Plan Pt is a 74-year-old male with a PMH significant for?HTN, HLD, myasthenia gravis, HFpEF, non-obstructive CAD, COPD, spondylolysis lumbosacral spine with radiculopathy, hypothyroidism, and adrenal insufficiency who presents to the ED for evaluation of left-sided chest pain x2 days. Pt was treated with nitrogylcerin. Pt will be admitted to the hospital under observation for further evaluation of atypical left-sided chest pain in the setting of elevated troponins. Atypical chest pain, h/o nonobstructive CAD, with mild increase in troponin. cardiology advises cardiac cath, in the meantime heparin nitro PRN continue ASA, statin h/o Myasthenia gravis Continue azathioprine, pyridostigmine, prednisone Hypothyroid his Continue levothyroxine GERD PPI HTN Continue amlodipine and lisinopril COPD Not in acute exacerbation Continue home inhalers Full Code Attending:?Dr. Conde DVT Prophylaxis: Lovenox Awaiting stress late enty note from 01/04 Quality Stroke Does the patient have a stroke diagnosis?: No VTE Prior VTE?: No VTE Risk Level:: Medical - moderate - high VTE Device Contraindication: Treatment Not Indicated VTE Drug Contraindication: N/A - Med Ordered
[2025-01-06 22:50] LABS: PTT Heparin Drip 61.9 SEC (53-77.9)
[2025-01-07 03:12] VITALS: BP 101/54; PULSE 56; RESP 20; TEMP 36.2; O2SAT 97
[2025-01-07 05:16] LABS: PTT Heparin Drip 65.3 SEC (53-77.9)
[2025-01-07 07:12] VITALS: BP 110/75; PULSE 56; RESP 18; TEMP 36.6; O2SAT 96
[2025-01-07] MEDS: Omeprazole 20 MG CAPSULE.DR PO (08:30)
[2025-01-07] MEDS: lisinopriL 20 MG TABLET PO (08:30)
[2025-01-07] MEDS: Aspirin Enteric Coated 81 MG TABLET.DR PO (08:30)
[2025-01-07] MEDS: azaTHIOprine 50 MG TABLET PO (08:30)
[2025-01-07] MEDS: predniSONE 5 MG TABLET PO (08:30)
[2025-01-07] MEDS: Atorvastatin Calcium 10 MG TABLET PO (08:30)
[2025-01-07] MEDS: pyRIDostigmine bromide 60 MG TABLET PO (08:31)
[2025-01-07] MEDS: Lidocaine 4 % Patch ADH..PATCH 1 PATCH TRANSDERMA (08:31)
[2025-01-07] MEDS: Levothyroxine Sodium 50 MCG TABLET PO (08:31)
[2025-01-07] MEDS: amLODIPine Besylate 2.5 MG TABLET PO (08:31)
[2025-01-07] MEDS: Multivitamin TABLET 1 TAB PO (08:31)
[2025-01-07] MEDS: Heparin Sodium,Porcine/1/2NS 25,000 UNIT/250 ML IV.SOLN 10 UNIT IVCONT (08:54)
--- NOTE | 2025-01-07 09:27 | P.EN_ITS ---
Event Note Date of Service: 01/07/25 Event Note: Pt was not dc yesterday as [place] [facility] [place] No new issues, vitals stable. Anticipate dc today. Continue Heparin drip.. DC summery completed. Time Spent With Patient Time: Total time managing care of this patient today ____ minutes.
--- NOTE | 2025-01-07 09:27 | PM.DS ---
DS: Providers Provider Date of Service: 01/07/25 Date of admission: 01/03/25 19:30 Date of discharge: 01/07/25 Primary care physician: Gifty Frankel MD Consults: 01/03/25 19:08 Consult to Cardiology Routine Consulting Provider: [facility] Reason for consultation: chest pain Has provider been notified: Yes DS: Diagnosis Discharge Diagnosis (1) Acute coronary syndrome: Status: Acute DS: Summary Hospital Course Hospital Course: Attending physician on admission: Ruben Conde Chief Complaint: Chest pain Pt is a 74-year-old male with a PMH significant for?HTN, HLD, myasthenia gravis, HFpEF, non-obstructive CAD, COPD, spondylolysis lumbosacral spine with radiculopathy, hypothyroidism, and adrenal insufficiency who presents to the ED for evaluation of left-sided chest pain x2 days. Pt reports that his of over 50 years 2 days prior on Monday. had a significant hx of dementia and two previous strokes. Pt reports later that day developed left-sided, nonradiating, and constant chest pressure. Reports worsens after eating. Has had increased anxiety, but no nausea, vomiting, or diaphoresis. Pt with chronic SOB and weakness secondary to myasthenia gravis, both around baseline. Denies cough. No headache. Denies left arm, jaw, or neck pain. Chest pain was not alleviated by home nitroglycerin, though pt notes his prescription was many years old. Was given nitroglycerin sublingual in the ED which he reports alleviated symptoms. Pt states is no longer currently experiencing chest pain or pressure. In the ED pt's vitals were stable and WNL, satting at 98% on RA. Labs were significant for initial troponin 103.9 with repeat flat at 112.4, otherwise grossly unremarkable and around baseline for pt. No leukocytosis. Stable H&H. No significant electrolyte abnormalities. Renal and hepatic function WNL. CXR negative for active disease, but showed mild cardiomegaly with stable postoperative changes and scarring to right lower lobe. EKG demonstrated sinus rhythm with sinus arrhythmia and 1st degree AV block but no significant ST elevations or depressions. Repeat EKG with sinus bradycardia of 58, first-degree AV block, and premature supraventricular complexes. Pt was treated with nitrogylcerin. Pt will be admitted to the hospital under observation for further evaluation of atypical left-sided chest pain in the setting of elevated troponins. Hospital course: Pt is a 74-year-old male with a PMH significant for?HTN, HLD, myasthenia gravis, HFpEF, non-obstructive CAD, COPD, spondylolysis lumbosacral spine with radiculopathy, hypothyroidism, and adrenal insufficiency who presents to the ED for evaluation of left-sided chest pain x2 days. Pt was treated with nitrogylcerin. Pt will be admitted to the hospital under observation for further evaluation of atypical left-sided chest pain in the setting of elevated troponins. Atypical chest pain, h/o nonobstructive CAD, and increase troponin I level 103, 112, then 165. ECG no acute ischemic changes. Echo showed - 1. Normal LV ejection fraction of 60-65% with mild LVH with grade 2 diastolic dysfunction 2. Mild calcific aortic and mitral annulus changes noted 3. No gross pericardial effusion Patient was seen by cardiology and advised cardiac cath as next plan of care, in the interim has been staretd on heparin, to continue ASA, and statin. No metoprolol due to underlying bradycardia. h/o Myasthenia gravis Continue azathioprine, pyridostigmine, prednisone Hypothyroid his Continue levothyroxine GERD PPI HTN Continue amlodipine and lisinopril COPD Not in acute exacerbation Continue home inhalers Time Attestation Discharge Coordination Time (in mins): 40 Quality: Safe Use of Opioids Does Pt have an Active Cancer Diagnosis on the Problem List?: No Quality: Stroke Does the patient have a stroke diagnosis?: No Physical Exam Vital Signs: Vital Signs: Selected Entries 01/04/25 11:36 01/07/25 07:12 Temperature 98.5 F 97.9 F Pulse Rate 74 56 Respiratory Rate 16 18 Blood Pressure 109/69 110/75 Pulse Oximetry 97 96 Oxygen Delivery Me thod Room Air Room Air Const: Other: General: AO X 3, no acute distress Resp: CTA bilateral CVS: S1,S2,RRR GI: +BS, NT, no distention Skin: No rash Neuro: motor grossly intact Psych: appropriate affect DS: Data Data Completed and Pending Completed studies during hospitalization [Text1]: Procedures Transfusion of Nonautologous Globulin into Peripheral Vein, Percutaneous Approach (07/17/23) Labs on day of discharge: Laboratory Results - last 24 hr 01/06/25 01/06/25 09:39 09:43 WBC 7.6 RBC 5.20 Hgb 14.9 Hct 45.4 MCV 87.3 MCH 28.7 MCHC 32.8 RDW 14.2 Plt Count 197 MPV 10.5 Absolute Nucleated RBC 0.000 Nucleated RBC % (auto) 0.0 PT 12.9 H INR 1.1 aPTT Heparin Protocol 29.4 L Hold Green Top See Note Discharge Plan Discharge Anticipated Discharge Date/Time: 01/07/25 07:44 Patient Disposition: Xfer Acute Care Hospital Discharge Diagnosis: Acute NSTEMI Referrals: Gifty Frankel MD [Primary Care Provider] - 1 Week Discharge Medications: New heparin(porcine) in 0.45% NaCl 25,000 unit/250 mL Parenteral Solution 25,000 unit continuous IV infusion .Q0M Qty: 6000 0RF Rx Instructions: Follow heparin protocol Continued nitroglycerin 0.4 mg tablet, sublingual 0.4 mg sublingual Q5M PRN (Reason: chest pain) Qty: 30 0RF Rx Instructions: do not exceed 3 doses per episode albuterol sulfate [Ventolin HFA] 90 mcg/actuation HFA aerosol inhaler 2 puff inhalation Q4-6H PRN (Reason: Wheezing) Qty: 18 0RF rosuvastatin 5 mg tablet 5 mg PO DAILY 90 Days Qty: 90 3RF amlodipine 2.5 mg tablet 2.5 mg PO DAILY Qty: 90 1RF lisinopril 20 mg tablet 20 mg PO DAILY Qty: 90 3RF aspirin 81 mg tablet,delayed release (DR/EC) 81 mg PO DAILY Qty: 90 3RF acetaminophen [Tylenol] 325 mg Tablet 650 mg PO Q6H PRN (Reason: Pain) prednisone 5 mg tablet 5 mg PO DAILY pyridostigmine bromide 60 mg tablet 60 - 120 mg PO TID Bevespi Aerosphere 9-4.8 mcg HFA aerosol inhaler 2 puff INHALATION BID multivitamin Tablet 1 tab PO DAILY levothyroxine 50 mcg tablet 50 mcg PO DAILY@0600 omeprazole 20 mg capsule,delayed release(DR/EC) 20 mg PO DAILY@0630 clotrimazole-betamethasone 1-0.05 % cream 1 applic topical DAILY PRN (Reason: Rash) azathioprine 50 mg tablet 50 mg PO DAILY Discharge Orders: Discharge Order (Routine); Ordered 01/06/25 Ordered By: Jorge Luis Villalobos Diet: Advance to usual diet Activity on Discharge: As tolerated Stand Alone Forms: Patient Portal Discharge page Print Language: Telugu Care Plan Goals: Transfer to [facility] for cardiac cath Health Concerns: acute NSTEMI Plan of Treatment: To [facility] for cardiac cath continue heparin, ASA, and statin Assessment: see above
--- NOTE | 2025-01-07 10:10 | P.PNCA_ITS ---
Subjective Subjective Date of Service: 01/07/25 Principal diagnosis: Acute coronary syndrome Interval history: Intermittent chest discomfort he says at very minimal scale. Denies any other complaints. Blood pressure remained stable. Awaiting transfer to [facility]. Review of Systems Constitutional: Reports no additional constitutional complaints Cardiovascular: Reports chest pain at rest, Denies leg edema, Denies lightheadedness, Denies Loss of Consciousness, Denies palpitations and Denies dyspnea Respiratory: Reports no additional respiratory complaints and Denies dyspnea Gastrointestinal: Reports no additional gastrointestinal complaints Genitourinary: Reports no additional male genitourinary complaints Musculoskeletal: Reports no additional musculoskeletal complaints Skin/Breast: Reports system reviewed and no additional complaints, except as docu Reports system reviewed and no additional complaints, except as documented Endocrine: Denies palpitations Physical Exam Vital Signs: Last Vital Signs Temp 97.9 F 01/07/25 07:12 Pulse 56 01/07/25 07:12 Resp 18 01/07/25 07:12 BP 110/75 01/07/25 07:12 Pulse Ox 96 01/07/25 07:12 O2 Del Method Room Air 01/07/25 07:12 BMI result Body Mass Index 27.6 Const General: cooperative, comfortable, no acute distress, alert and awake Nutritional Appearance: overweight Orientation/consciousness: patient oriented x3 Neck Neck: Yes trachea midline, Yes supple and Yes no JVD Resp Effort & Inspection: normal respiratory effort Auscultation: clear to auscultation bilaterally and diminished lung sounds Cardio Jugular venous distension: no JVD Rate: regular rate Rhythm: regular rhythm Heart sounds: S1 normal heart sound present, S2 normal heart sound present, no click, no gallops, no murmurs and no rubs GI Auscultation: normal bowel sounds Skin General skin exam: no rashes or lesions noted Neuro General: patient oriented x3 and no focal motor deficits Extrem General: Yes no clubbing, cyanosis or edema Objective Labs and Meds 01/06/25 09:39 01/04/25 06:29 Lab results: Laboratory Results - last 24 hr 01/06/25 01/06/25 01/06/25 09:39 16:20 22:35 PT 12.9 H INR 1.1 aPTT Heparin Protocol 29.4 L 53.4 D 61.9 01/07/25 04:44 PT INR aPTT Heparin Protocol 65.3 Progress Note: A&P Assessment and plan (1) Acute coronary syndrome: Status: Acute Assessment and Plan: Acute coronary syndrome, awaiting cardiac catheterization. Continue IV heparin, aspirin, high-intensity statin therapy. Continue blood pressure control on current medications. Hold off on metoprolol due to low heart rate. Discussed again the need for cardiac catheterization including risk, benefits, alternatives. Potential outcomes were discussed with him as well. He understands and agrees. Time Spent With Patient Time: Total time managing care of this patient today ____ minutes. Progress Note: Quality Stroke Does the patient have a stroke diagnosis?: No Procedures Date of Service Date of Service: 01/07/25
[2025-01-07 10:56] VITALS: BP 106/61; PULSE 57; RESP 18; TEMP 36.3; O2SAT 96
== END 2025-01-07 11:54 | disposition short-term general hospital (02) ==
LOC: HO.ED 18:33 → HO.EDOVER 19:33 → HO.IMC 19:47
PROVIDERS: Internal Medicine; Registered Nurse Emergency; Admitting Provider Student in an Organized Health Care Education/Training Program; Emergency Provider Emergency Medicine; PCP Internal Medicine; Visit Provider Internal Medicine
DX: I21.4 Non-ST elevation (NSTEMI) myocardial infarction (principal); I25.10 Atherosclerotic heart disease of native coronary artery without angina pectoris; I24.9 Acute ischemic heart disease, unspecified; I10 Essential (primary) hypertension; E78.5 Hyperlipidemia, unspecified; E03.9 Hypothyroidism, unspecified; M54.17 Radiculopathy, lumbosacral region; G70.00 Myasthenia gravis without (acute) exacerbation; Z79.899 Other long term (current) drug therapy
CPT/HCPCS: 36415; 71045; 80048; 80076; 83690; 84484; 85025; 85027; 85610; 85730; 93005; 93306; 96361; 96365; 96366; 96372; 96375; 99222; 99285; J1644; J1650; Q9957

== ENCOUNTER → 2025-01-03 10:26 | Outpatient (BNV) | payer MEDICARE, MEDICAID, SELFPAY | PROVIDERS: Admitting Provider Student in an Organized Health Care Education/Training Program; Emergency Provider Emergency Medicine; PCP Internal Medicine; Visit Provider Internal Medicine Cardiovascular Disease | DX: I44.0 Atrioventricular block, first degree (principal); I45.10 Unspecified right bundle-branch block; I44.5 Left posterior fascicular block; I49.9 Cardiac arrhythmia, unspecified; I49.1 Atrial premature depolarization; R00.1 Bradycardia, unspecified | CPT/HCPCS: 93010 ==

== ENCOUNTER → 2025-01-03 10:36 | Outpatient (BNV) | payer MEDICARE, MEDICAID, SELFPAY | PROVIDERS: PCP Internal Medicine; Visit Provider Radiology Diagnostic Radiology | DX: R07.9 Chest pain, unspecified (principal) | CPT/HCPCS: 71045 ==

== ENCOUNTER 2025-01-03 19:30 | Outpatient (BNV) | payer MEDICARE, MEDICAID, SELFPAY | END 2025-01-06 07:00 | PROVIDERS: Admitting Provider Student in an Organized Health Care Education/Training Program; Emergency Provider Emergency Medicine; PCP Internal Medicine; Visit Provider Internal Medicine Cardiovascular Disease | DX: I35.8 Other nonrheumatic aortic valve disorders (principal); I34.81 Nonrheumatic mitral (valve) annulus calcification; I51.89 Other ill-defined heart diseases; I24.9 Acute ischemic heart disease, unspecified | CPT/HCPCS: 93306 ==

== ENCOUNTER → 2025-01-03 19:30 | Outpatient (BNV) | payer MEDICARE, MEDICAID, SELFPAY | PROVIDERS: Admitting Provider Student in an Organized Health Care Education/Training Program; Emergency Provider Emergency Medicine; PCP Internal Medicine; Visit Provider Internal Medicine Cardiovascular Disease | DX: R07.9 Chest pain, unspecified (principal) | CPT/HCPCS: 99222 ==

== ENCOUNTER → 2025-01-03 19:30 | Outpatient (BNV) | payer MEDICARE, MEDICAID, SELFPAY | PROVIDERS: Admitting Provider Student in an Organized Health Care Education/Training Program; Emergency Provider Emergency Medicine; PCP Internal Medicine; Visit Provider Student in an Organized Health Care Education/Training Program | DX: R07.9 Chest pain, unspecified (principal) | CPT/HCPCS: 99222; 99232; 99499 ==

== ENCOUNTER → 2025-01-07 23:59 | Outpatient (BNV) | payer MEDICARE, MEDICAID, SELFPAY | PROVIDERS: PCP Internal Medicine; Visit Provider Internal Medicine Cardiovascular Disease | DX: I21.4 Non-ST elevation (NSTEMI) myocardial infarction (principal) | CPT/HCPCS: 93456; 93571; 99152 ==

== ENCOUNTER 2025-01-15 09:45 | Outpatient (AMB) | payer MEDICARE, MEDICAID, SELFPAY ==
--- NOTE | 2025-01-15 09:52 | A.OFFPC_ITS ---
Vital Signs 01/15/25 09:54 Height 6 ft Weight 208 lb BMI 28.2 BP 126/78 Blood Pressure Location Lt brachial Position Sitting Respiration 18 Pulse 70 Pulse Source Pulse Oximeter Temp 97.8 F Temp Source Oral Pulse Oximetry (%) 96 Oxygen Delivery Method Room Air Intake Visit Reasons: E/D follow up for chest pain Intake Note: Pt is here today for a ER follow up visit. Allergies No Known Allergies [No Known Allergies*] Allergy (Verified 01/15/25 09:54) Medication List - Last Reconciled 01/15/25 by Gitfy Frankel MD acetaminophen (Tylenol) 650 mg PO Q6H PRN amlodipine 2.5 mg PO DAILY aspirin 81 mg PO DAILY azathioprine 50 mg PO DAILY clotrimazole-betamethasone 1-0.05 % 1 appl topical DAILY PRN glycopyrrolate-formoterol 9-4.8 mcg (Bevespi Aerosphere) 2 puffs inhalation BID levothyroxine 50 mcg PO DAILY@0600 lisinopril 20 mg PO DAILY multivitamin 1 tab PO DAILY nitroglycerin 0.4 mg sublingual Q5M PRN omeprazole 20 mg PO DAILY@0630 prednisone 5 mg PO DAILY pyridostigmine bromide 60 - 120 mg PO TID rosuvastatin 5 mg PO DAILY 90 days sertraline mg PO DAILY Ventolin HFA 90 mcg/actuation (albuterol sulfate) 2 puffs inhalation Q4-6H PRN NS Tobacco use date assessed: 01/15/25 Fall risk assessment: No Falls in past year Last assessed Fall Risk: 01/15/25 Dental Screening Dental Screen Date: 01/15/25 Did you have a dental visit in the last 12 months?: Yes Did you have a dental problem in the last 6 months where you did not have access to dental care?: No Was dental information given to patient?: Patient has dentist HPI E/D follow up for chest pain HPI Details Pt present for f/u admission for CP, elevated troponin, transfer to [facility] for cardiac cath c/w moderate proximal RCA and mild LAD and LCx disease. Echo showed nl EF. Pt's last week and pt is grieving but he has a good support system with his family and friends. Patient complains of chronic lower back pain worse when sitting for long time or lifting. He has been using lidocaine patch with some relief. Patient was established with [facility], had multiple injections and has a spine stimulator but would like to be referred to pain management at [facility]. 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) Back pain Arthritis JULIEN (dyspnea on exertion) Disc degeneration, lumbar Hyperglycemia Abdominal pain Pulmonary nodule Hyperlipidemia COPD (chronic obstructive pulmonary disease) Myasthenia gravis Scoliosis Spondylosis of lumbosacral spine with radiculopathy Degenerative disc disease, lumbar Hypothyroid Leg cramps Emphysema of lung Iron deficiency anemia Osteoarthritis Diastolic dysfunction Hypertension Incomplete emptying of bladder due to benign prostatic hyperplasia Nocturia associated with benign prostatic hyperplasia BPH loc w urin obs/LUTS Surgical History History of right inguinal hernia repair (~10/31/23) History of carpal tunnel surgery Hx of hand surgery History of left inguinal hernia repair S/P insertion of spinal cord stimulator History of colonoscopy History of lung surgery (~11/2020) History of total right hip arthroplasty (~02/2018) History of hydrocelectomy Hx of tonsillectomy Family History Father No problems noted. Mother No problems noted. Social History Household Members: None Household Members Other:: spouse has dementia Housing: House Are you a primary special needs caregiver to a significant other at home: Yes (-has dementia) Do you presently have visiting nurse or other home services: No Alcohol intake: never Patient Tobacco Use Status: Never used Tobacco e-Cigarette/Vaping Use: Never Used Second Hand Smoke Exposure: No Advance Directives Date on File: 11/01/23 service: No Current occupational status: retired Current occupation: right handed Cognitive needs: No Hearing needs: No Vision needs: No Questionnaire PHQ-9 Over the last 2 weeks, how often have you been bothered by any of the following problems? 1. Little interest or pleasure in doing things: not at all 2. Feeling down, depressed, or hopeless: not at all 3. Trouble falling or staying asleep, or sleeping too much: several days 4. Feeling tired or having little energy: several days 5. Poor appetite or overeating: not at all 6. Feeling bad about yourself - or that you are a failure or have let yourself or your family down: not at all 7. Trouble concentrating on things, such as reading the newspaper or watching television: not at all 8. Moving or speaking so slowly that other people could have noticed. Or the opposite - being so fidgety or restless that you have been moving around a lot more than usual: not at all 9. Thoughts that you would be better off or of hurting yourself in some way: not at all Total score: 2 Depression Screening Interpretation: Negative Depression Screening Done: Yes 88721 - PHQ-9 Billing: Yes Source: Developed by Drs. Patrice Kay, Lesley Calderón, Duran Barrios and colleagues, with an educational danica from [employer]. Thrive Questionnaire Date Thrive assessed: 01/15/25 I am a: Patient What is your living situation today?: I have a steady place to live Within the past 12 months, did the food you bought not last and you didn't have the money to get more?: Never true Within the past 12 months, did you worry whether your food would run out before you got money to buy more?: Never true Do you have trouble paying for medicines?: No Do you have trouble getting transportation to medical appointments?: No Do you have trouble paying your heating and electricity bill?: No Do you have trouble taking care of your child, family member or friend?: No Do you have trouble with day-to-day activities such as bathing, preparing meals, shopping, managing finances, etc.?: No Are you currently unemployed and looking for a job?: No Are you interested in more education?: No Please select the resources that you would like help with: None Currently or been in a relationship where the following occur: No concerns reported THRIVE Score: 0 AUDIT C Alcohol Use Questionnaire (AUDIT-C) 1. How often do you have a drink containing alcohol?: Never 3. How often do you have six or more drinks on one occasion?: Never Total Score: 0 GAETANO-7 AMB Questionnaire GAETANO-7 Date GAETANO - 7 assessed: 01/15/25 Feeling nervous, anxious, or on edge: 1 = Several days Not being able to stop or control worryin = Not at all Worrying too much about different things: 0 = Not at all Trouble relaxin = Not at all Being so restless that it is hard to sit still: 0 = Not at all Becoming easily annoyed or irritable: 0 = Not at all Feeling afraid as if something awful might happen: 0 = Not at all Total GAETANO-7 score (0-4 normal; 5-9 mild; 10-14 moderate; 15-21 severe): 1 Source: Developed by Drs. Patrice Kay, Lesley Calderón, Duran Barrios and colleagues, with an educational danica from [employer]. GAETANO-7 Assessment Billing GAETANO-7 Assessment Tool: GAETANO-7 Assessment 82356 Review of Systems Const All systems reviewed & are unremarkable except as noted in HPI and below Eyes Reports no additional complaints ENT Reports no additional complaints Card Reports no additional complaints Resp Reports no additional complaints GI Reports no additional complaints Reports no additional complaints Physical exam (Primary Care) Vital Signs: Last Vital Signs Temp 97.8 F 01/15/25 09:54 Pulse 70 01/15/25 09:54 Resp 18 01/15/25 09:54 BP 126/78 01/15/25 09:54 Pulse Ox 96 01/15/25 09:54 Oxygen Delivery Method Room Air 01/15/25 09:54 BMI result Body Mass Index 28.2 Tobacco/Smoking Status: Tobacco use Status Tobacco use date assessed 01/15/25 01/15/25 09:59 Patient Tobacco Use Status Never used Tobacco 01/15/25 09:59 e-Cigarette/Vaping Use Never Used 01/15/25 09:54 PHQ-9: PHQ-9 Score PHQ-9: Total score 2 01/15/25 09:59 Depression Screening Interpretation: Negative Thrive Assessment: Date of Thrive Assessment Date Thrive assessed 01/15/25 01/15/25 09:59 Currently or been in a relationship where the following occur: No concerns reported Const General: no acute distress HENMT Head: Yes normal to inspection Face and sinus: Yes normal facial exam Eyes General: appearance normal, both eyes and all related structures Neck Neck: Yes no lymphadenopathy and Yes supple Resp Effort & Inspection: normal respiratory effort Auscultation: clear to auscultation bilaterally Cardio Rhythm: regular rhythm Heart sounds: S1 normal heart sound present and S2 normal heart sound present GI Inspection: Yes normal to inspection Palpation (GI): Soft to palpation Auscultation: normal bowel sounds Back/Spine/Pelvis Other: THERE IS DECREASED RANGE OF MOTION LUMBAR SPINE, STRAIGHT LEG RISING , 90 DEGREES BILATERALLY Coding Level of Care Code Est Pt Level 5 (02599) Complex EM visit Add On G2211 Diagnoses Myasthenia gravis G70.00 CAD (coronary artery disease) I25.10 Hypothyroidism, unspecified type E03.9 Hypothyroidism type: unspecified Hyperlipidemia E78.5 COPD (chronic obstructive pulmonary disease) J44.9 Degenerative disc disease, lumbar M51.36 Additional Codes GAETANO-7 Assessment Billing - GAETANO-7 Assessment Tool: GAETANO-7 Assessment 96698 ([id number]) PHQ-9 - 06114 - PHQ-9 Billing: Yes ([id number]) Assessment & Plan Assessment & Plan (1) Myasthenia gravis: Comment: involving eyelids, right facial muscles & lower extremities-follows w/Dr. Saez Code(s): G70.00 - Myasthenia gravis without (acute) exacerbation Category: Medical Plan: f/u with neurology (2) CAD (coronary artery disease): Comment: Cardiac cath [facility] 01/06/2025 moderate proximal RCA, minimal luminal irregularities in LAD and left circ circumflex, ECHO nl EF Code(s): I25.10 - Atherosclerotic heart disease of [place] coronary artery without angina pectoris Category: Medical Plan: cont current meds follow-up with cardiology (3) Hypothyroid: Code(s): E03.9 - Hypothyroidism, unspecified Category: Medical Qualifiers: Hypothyroidism type: unspecified Qualified Code(s): E03.9 - Hypothyroidism, unspecified Plan: Continue levothyroxine (4) Hyperlipidemia: Code(s): E78.5 - Hyperlipidemia, unspecified Category: Medical Plan: Continue statin (5) COPD (chronic obstructive pulmonary disease): Comment: HE HAS MODERATELY SEVERE CHRONIC OBSTRUCTIVE PULMONARY DISORDER. WITH HIS CURRENT MEDICAL REGIMEN HIS PULMONARY STATUS IS STAYING STABLE. COMPLAINS OF INCREASED SHORTNESS OF BREATH AND HAS TO STOP AFTER WALKING ABOUT HALF A BLOCK. Code(s): J44.9 - Chronic obstructive pulmonary disease, unspecified Category: Medical Plan: Continue Bevespi (6) Degenerative disc disease, lumbar: Code(s): M51.36 - Other intervertebral disc degeneration, lumbar region Category: Medical Plan: Referred to [facility] pain management, patient declined physical therapy Orders: Orders Comprehensive [place]. Panel Fast 5 Months E03.9 - Hypothyroidism, unspecified, E78.5 - Hyperlipidemia, unspecified, I25.10 - Atherosclerotic heart disease of [place] coronary artery without angina pectoris, R73.9 - Hyperglycemia, unspecified Complete Blood Count Auto Diff 5 Months E03.9 - Hypothyroidism, unspecified, E78.5 - Hyperlipidemia, unspecified, I25.10 - Atherosclerotic heart disease of [place] coronary artery without angina pectoris, R73.9 - Hyperglycemia, unspecified Lipid Panel 5 Months E03.9 - Hypothyroidism, unspecified, E78.5 - Hyperlipidemia, unspecified, I25.10 - Atherosclerotic heart disease of [place] coronary artery without angina pectoris, R73.9 - Hyperglycemia, unspecified Hemoglobin A1c 5 Months E03.9 - Hypothyroidism, unspecified, E78.5 - Hyperlipidemia, unspecified, I25.10 - Atherosclerotic heart disease of [place] coronary artery without angina pectoris, R73.9 - Hyperglycemia, unspecified TSH reflex Free T4 5 Months E03.9 - Hypothyroidism, unspecified, E78.5 - Hyperlipidemia, unspecified, I25.10 - Atherosclerotic heart disease of [place] coronary artery without angina pectoris, R73.9 - Hyperglycemia, unspecified
[2025-01-15 09:54] VITALS: BP 126/78; PULSE 70; RESP 18; TEMP 36.6; O2SAT 96; BMI 28.2
--- OUTSIDE RECORDS SUMMARY | 2025-01-15 10:52 | XMS_ITS | Continuity of Care Document ---
Author Organization [facility] ter Address [address] [place] [id number]- Care Team Providers Care Stationary Engineer Supervisor Name Role Phone Gifty Frankel MD Primary Care Physician [phone] [facility] [id number] Date(s): 01/07/25 - 01/08/[address] [address]- Discharge Disposition: A-D/C Home Attending Physician: Felice Gordon Sr, MD Admitting Physician: Kyra Flaherty MD Referring Physician: Not on Staff, Referring MD Encounter Type: Disch IP Allergies, Adverse Reactions, Alerts No Known Allergies Medications amLODIPine 2.5 mg oral tablet 1 tablet = 2.5 mg, By Mouth, Daily, # 30 tablet, 0 Refills, Maintenance, 01/07/25 5:55:00 PM EST, Tablet, Partial fill upon patient request if the prescription is for a schedule II opioid drug. Start Date: 01/07/25 Status: Ordered Quantity: 30.0 Unit: tablet Repeat number: 1 amLODIPine 5 mg oral tablet 2.5 mg, Tablet, By Mouth, 01/08/25 9:00:00 AM EST Start Date: 01/08/25 Stop Date: 01/08/25 Status: Completed Repeat number: 1 aspirin 81 mg oral delayed release tablet 81 mg, 1, tablet, By Mouth, Daily, # 30 tablet, Refills 0, Tot. Refills 0, Maintenance, 01/08/25 12:16:00 PM EST, Route to Pharmacy Electronically, [facility], Partial fill upon patient request if the prescription is for a schedule II opioid drug., 185, cm, 01/08/25 5:33:00 EST, Height,94.2, kg, 01/07/25 12:21:00 EST, Dry Weight Start Date: 01/08/25 Status: Ordered Quantity: 30.0 Unit: tablet Repeat number: 1 azaTHIOprine 50 mg oral tablet 50 mg, 1, tablet, By Mouth, Daily, # 60 tablet, Refills 0, Maintenance, 01/07/25 5:55:00 PM EST, Partial fill upon patient request if the prescription is for a schedule II opioid drug. Start Date: 01/07/25 Status: Ordered Quantity: 60.0 Unit: tablet Repeat number: 1 Bevespi Aerosphere 9 mcg-4.8 mcg/inh inhalation aerosol 2 inhalation, Inhalation, 2 times a day, in the morning and the evening, # 10.7 Gm, 0 Refills, Maintenance, 01/07/25 5:55:00 PM EST, Aerosol, Partial fill upon patient request if the prescription is for a schedule II opioid drug. Start Date: 01/07/25 Status: Ordered Quantity: 10.7 Unit: g Repeat number: 1 levothyroxine 0.05 mg oral tablet 1 tablet = 50 mcg, By Mouth, Daily, # 30 tablet, 0 Refills, Maintenance, 11/16/22 7:03:00 AM EST, Tablet, Partial fill upon patient request if the prescription is for a schedule II opioid drug. Start Date: 11/16/22 Status: Ordered Quantity: 30.0 Unit: tablet Repeat number: 1 lisinopril 20 mg oral tablet 20 mg, Tablet, By Mouth, 01/08/25 9:00:00 AM EST Start Date: 01/08/25 Stop Date: 01/08/25 Status: Completed Repeat number: 1 lisinopril 20 mg oral tablet 20 mg, 1, tablet, By Mouth, Daily, Refills 0, Maintenance, 11/16/22 7:04:00 AM EST, Partial fill upon patient request if the prescription is for a schedule II opioid drug. Start Date: 11/16/22 Status: Ordered Repeat number: 1 Multivitamin Tablet By Mouth, Daily, 0 Refills, Maintenance, 11/16/22 7:05:00 AM EST, Partial fill upon patient request if the prescription is for a schedule II opioid drug. Start Date: 11/16/22 Status: Ordered Repeat number: 1 nitroglycerin 0.4 mg sublingual tablet = 0.4 mg, Sublingual, Every 5 minutes, PRN Chest Pain, If chest pain not relieved in 5 minutes after first dose, seek immediate medical attention, # 100 tablet, 0 Refills, Maintenance, 01/08/25 12:16:00 PM EST, Tablet, [facility], Partial fill upon patient request if the prescription isfor a schedule II opioid drug., 185, cm, 01/08/25 5:33:00 EST, Height, 94.2, kg, 01/07/25 12:21:00 EST, Dry Weight Start Date: 01/08/25 Stop Date: 02/07/25 Status: Ordered Quantity: 100.0 Unit: tablet Repeat number: 1 omeprazole 20 mg oral delayed release tablet 1 tablet = 20 mg, By Mouth, Daily, 0 Refills, Maintenance, 11/16/22 7:04:00 AM EST, Partial fill upon patient request if the prescription is for a schedule II opioid drug. Start Date: 11/16/22 Status: Ordered Repeat number: 1 predniSONE 5 mg oral tablet 1 tablet = 5 mg, By Mouth, Daily, with food or milk, # 30 tablet, 0 Refills, Maintenance, 01/07/25 5:55:00 PM EST, Tablet, Partial fill upon patient request if the prescription is for a schedule II opioid drug. Start Date: 01/07/25 Status: Ordered Quantity: 30.0 Unit: tablet Repeat number: 1 pyridostigmine 60 mg oral tablet TAKE 1-2 TABLETS BY MOUTH THREE TIMES A DAY Start Date: 01/07/25 Status: Ordered Repeat number: 1 rosuvastatin 5 mg oral tablet 1 tablet = 5 mg, By Mouth, Daily at bedtime, # 90 tablet, 0 Refills, Maintenance, 01/07/25 5:55:00 PMEST, Tablet, Partial fill upon patient request if the prescription is for a schedule II opioid drug. Start Date: 01/07/25 Status: Ordered Quantity: 90.0 Unit: tablet Repeat number: 1 Problem List Condition Confirmation Course Effective Dates Status H ealth Status Informant COPD without exacerbation Confirmed Active Coronary artery disease Confirmed Active GERD (gastroesophageal reflux disease) Confirmed Active (HFpEF) heart failure with preserved ejection fraction Confirmed Active Hyperlipidemia Confirmed Active Hypertension Confirmed Active Adrenal insufficiency Confirmed Active Hypothyroidism Confirmed Active Spondylosis of lumbosacral spine with radiculopathy Confirmed Active Myasthenia gravis Confirmed Active Vital Signs Most recent to oldest [Reference Range]: 1 2 3 Height 185 cm (01/08/25 4:55 AM) 185 cm (01/07/25 9:12 PM) 185 cm (01/07/25 8:22 PM) Weight 94.3 kg (01/08/25 4:00 AM) 94.2 kg (01/07/25 12:21 PM) Oxygen Saturation [94-100 %] 96 % (01/08/25 11:15 AM) 97 % (01/08/25 7:56 AM) 97 % (01/08/25 4:00 AM) Pulse Rate [55-90 bpm] 57 bpm (01/08/25 11:15 AM) 55 bpm (01/08/25 7:56 AM) 58 bpm (01/08/25 4:00 AM) Body Mass Index [18.5-24.99 kg/m2] 27.52 kg/m2 *H* (01/07/25 12:21 PM) Blood Pressure [90-138/55-84 mm Hg] 112/65mm Hg (01/08/25 11:15 AM) 115/64mm Hg (01/08/25 10:00 AM) 115/64mm Hg (01/08/25 9:59 AM) Respiratory Rate [16-30 br/min] 17 br/min (01/08/25 11:15 AM) 17 br/min (01/08/25 7:56 AM) 20 br/min (01/08/25 4:00 AM) Temperature [96.8-100.4 DegF] 98.7 DegF (01/08/25 11:15 AM) 98.2 DegF (01/08/25 7:56 AM) 97.8 DegF (01/08/25 4:00 AM) Mode of Delivery (Oxygen) Room air (01/08/25 11:15 AM) Room air (01/08/25 7:56 AM) Room air (01/08/25 4:00 AM) Blood pressure sites Arm, right (01/08/25 11:15 AM) Arm, right (01/08/25 7:56 AM) Arm, left (01/08/25 4:55 AM) Temperature Route Oral (01/08/25 11:15 AM) Oral (01/08/25 7:56 AM) Oral (01/08/25 4:00 AM) Dry Weight 94.2 kg (01/07/25 12:21 PM) Note * Event Display: Hemodynamic Procedure Report Authored Date: * Onel Trevino RN: PERFORM, SIGN, VERIFY Event Display: Cardiac Rehab Note Authored Date: [id number] Patient: SUHAIL PLAZA Age: 74 years Sex: Male : 1950 Associated Diagnoses: None Author: Onel Trevino RN Diagnosis Cardiac Rehab Diagnosis: NSTEMI; per progres note consistent with stress cardiomyopathy - medical management. Pre-exercise Vitals Vital Signs Comment: Reviewed in CIS. Pre-exercise Physical Examination Neurologic: alert & oriented, oriented to (time, person, place). Cardiovascular: heart rate (bradycardia, regular). Activity Symptoms with Cardiac Rehab Symptoms: No exertional symptoms. Activity Ambulate: Independently ambulating without symptoms, steady on feet. Assistive Devices Assistive Device: None. Patient Education Education: Patient alone, Written material included, Post procedure guidelines, phase 2 cardiac rehab. Education topic Teachback comprehension 75% Topic: Medication education, Role of exercise, Stress management, Home activity guidelines/limits. Reinforcement needed: Medication education. Recommendation and Plan Patient may benefit from: All education with family present. Outpatient follow up recommended: Patient to f/u with [facility] for Phase 2 Cardiac Rehab in a few weeks - is currently planning 's and is grieving, reports positive social support and healthy coping outlets including gardening. Discussed progression of physical activity and f/u with cardiology and PCP.. Cardiac Rehab: Will sign off at this time. * Erwin Kevin RN: PERFORM Event Display: Discharge/Transfer Note Hospital Authored Date: [id number] Nursing Discharge Note Entered On: 01/08/2025 13:58 EST Performed On: 01/08/2025 13:55 EST by Erwin Kevin RN Nursing Discharge Note 2 Discharge Time : 01/08/2025 13:55 EST Discharge Level of Care at Discharge : Home/Alf/Foster Care Patient Left Unit Via : Wheelchair Patient Accompanied Off Unit with : Responsible adult DC Instructions Provided & Signed by Pt : Yes Patient Understands D/C Instructions : Yes Patient Instructions Discharge Signed : Yes Discharge Comments : Pt received dc instructions. IV pulled per protocol. Script available at [facility] pharmacy. Pt sent to security to cotton picker belongings with transport personelCarisa Manuel booked with CM. Did Pt have Specialty Bed or Wound Vac : No Herberth BLACKWOOD, Erwin - 01/08/2025 13:55 EST * Heidi Melo MD, Felice Jim: PERFORM Event Display: Discharge/Transfer Note Hospital Authored Date: [id number] Patient: ??SUHAIL PLAZA ? Age:??74 Years?Sex:??Male?:??1950?? Patient Information Discharge Location: Primary Care Physician: Not on Staff, PCP Admit Date/Time: 01/07/2025 12:16 Discharge Disposition Discharge Disposition: ?? Discharge Diagnosis Non-ST elevation IN (NSTEMI) (I21.4) Stress cardiomyopathy Coronary artery disease (I25.10) Hypertension (I10) (HFpEF) heart failure with preserved ejection fraction (I50.30) Myasthenia gravis (G70.00) Adrenal insufficiency (E27.40) COPD without exacerbation (J44.9) Hypothyroidism (E03.9) GERD (gastroesophageal reflux disease) (K21.9) _ Discharge Medications Amlodipine (amLODIPine 2.5 mg oral tablet)??1 tab(s) 2.5 Milligram By Mouth Daily Aspirin (aspirin 81 mg oral delayed release tablet)??81 Milligram 1 tablet By Mouth Daily Azathioprine (azaTHIOprine 50 mg oral tablet)??50 Milligram 1 tablet By Mouth Daily formoterol-glycopyrrolate (Bevespi Aerosphere 9 mcg-4.8 mcg/inh inhalation aerosol)??2 inhalation Inhalation 2 times a day in the morning and the evening Levothyroxine (levothyroxine 0.05 mg oral tablet)??1 tab(s) 50 Microgram By Mouth Daily Lisinopril (lisinopril 20 mg oral tablet)??20 Milligram 1 tablet By Mouth Daily Multivitamin (Multivitamin Tablet)??By Mouth Daily Nitroglycerin (nitroglycerin 0.4 mg sublingual tablet)??0.4 Milligram Sublingual Every 5 minutes asneeded Chest Pain for 30 Days If chest pain not relieved in 5 minutes after first dose, seek immediate medical attention Omeprazole (omeprazole 20 mg oral delayed release tablet)??1 tab(s) 20 Milligram By Mouth Daily PredniSONE (predniSONE 5 mg oral tablet)??1 tab(s) 5 Milligram By Mouth Daily with food or milk Pyridostigmine (pyridostigmine 60 mg oral tablet)??TAKE 1-2 TABLETS BY MOUTH THREE TIMES A DAY Rosuvastatin (rosuvastatin 5 mg oral tablet)??1 tab(s) 5 Milligram By Mouth Daily at bedtime ? Quality Measures Chest Pain, AMI Quality Measures:?Aspirin Prescribed at Discharge:??Aspirin Prescribed ? Allergies Allergies ?(Active and Proposed Allergies Only) NKA? (Severity: Unknown severity, Onset: Unknown) ? Objective Assessment:??74-year-old male with past medical history significant for hypertension, hyperlipidemia,??HFpEF,??nonobstructive coronary artery disease (CT coronary in 11/2022??showed focal stenosis??ofthe proximal RCA??50- 60%,??calcific plaque in the mid LAD??with mild stenosis 25-30%,??and widespread minimal to mild plaque),??myasthenia gravis, COPD,??hypothyroidism, adrenal insufficiency, GERD,??and??lumbosacral spine spondylosis with radiculopathy??who presented to [facility] on 01/03/2025??complaining of left-sided chest pain intermittently over the prior 2 days.??Of note, his of 51 years had just ??prior to the onset of this.? At [facility], the patient's??pain was alleviated by??nitroglycerin sublingual.??Workupwas concerning??for NSTEMI with initial??high-sensitivity troponin I 103.9, but then peaked up to 160.??The patient was admitted to the hospital??and started on heparin drip.??He was continued on hisaspirin, statin??and blood pressure medications.??He did undergo echocardiogram??on 01/06/2025 which showed normal??ejection fraction 60 to 65%,??diastolic dysfunction, and no regional wall motion abnormalities.?He was evaluated by cardiology,??and now transferred here to [facility] for cardiac catheterization. ?? Non-ST elevation IN (NSTEMI) (I21.4) Coronary artery disease (I25.10):?? Stress cardiomyopathy transferred from [facility] due to chest pain after his He underwent cardiac catheterization this afternoon which showed moderate disease in the proximal segment of the RCA which was interrogated, and was IRF negative.?? There were minimal luminal irregularities in the LAD and left circumflex. Presentation is??consistent with stress cardiomyopathy (???in setting of his 's 2 days prior to arrival). ?? It was recommended to continue aspirin, medical management, and risk factor adjustment. He is euvolemic on exam with blood??pressure controlled.?? Echo at [facility] showed preserved ejection fraction.? Heparin drip discontinued Continue aspirin 81 mg daily Continue rosuvastatin as prescribed; Avoid beta amrik with underlying bradycardia Nitroglycerin sublingual 0.4 mg as needed for recurrent chest pain ? Hypertension (I10) (HFpEF) heart failure with preserved ejection fraction (I50.30):? Blood pressure is well-controlled. Euvolemic on exam.?? Preserved EF on echo. Renal function is stable. Continue amlodipine and lisinopril as prescribed. ?? Myasthenia gravis (G70.00):?? Not in active flare. Continue??pyridostigmine and azathioprine as prescribed. ?? Adrenal insufficiency (E27.40):??Not in crisis. Continue prednisone as prescribed. ?? COPD without exacerbation (J44.9):??No acute bronchospasm or hypoxia. Resume home inhaler at discharge. Albuterol MDI will be ordered as needed. ?? Hypothyroidism (E03.9):??Continue levothyroxine as prescribed. GERD (gastroesophageal reflux disease) (K21.9):??Continue PPI as prescribed. ? Measurements?? Height: 185 cm (01/08/25) Weight: 94.3 kg (01/08/25) Dry Weight: 94.2 kg (01/07/25) Body Mass Index:??27.52 kg/m2??High (01/07/25) ? Vital Signs?? Temperature: 98.7 DegF (01/08/25 11:15:00) Temperature Route: Oral (01/08/25 11:15:00) Pulse Rate: 57 bpm (01/08/25 11:15:00) Heart Rate Monitored: 56 bpm (01/07/25 16:45:00) Respiratory Rate: 17 br/min (01/08/25 11:15:00) Systolic Blood Pressure: 112 mm Hg (01/08/25 11:15:00) Diastolic Blood Pressure: 65 mm Hg (01/08/25 11:15:00) Blood pressure sites: Arm, right (01/08/25 11:15:00) Mean Arterial Pressure: 81 mm Hg (01/08/25 11:15:00) Pulse Pressure: 47 mm Hg (01/08/25 11:15:00) Oxygen Saturation: 96 % (01/08/25 11:15:00) Mode of Delivery (Oxygen): Room air (01/08/25 11:15:00) Early Warning Score: 0 (01/08/25 11:30:34) ? Intake/Output? 01/07 12:16 01/08 07:00 01/07 07:00 01/06 07:00 03 07:00 ?? 01/08 12:19 01/08 12:19 01/08 06:59 04 06:59 03 06:59 Intake ?360 ?0 ?360 ?0 ?0 Output ? 1700 ?0 ? 1700 ?0 ?0 Net Total ?-1340 ?0 ?-1340 ?0 ?0 ? . Physical Exam General: Awake, not in??distress Head and neck: Atraumatic, no neck swelling Eye: no injection or jaundice, EOMI. Cardiac: RRR, no murmurs, gallops or rubs, no S3 or S4. Pulmonary: Normal breathing sounds bilaterally with good air entry with??no wheezing or??rhonchi Abdominal: No tenderness or rebound tenderness, normal BS, no HSM Skin: No rashes, jaundice or schritching pereira Extremities: No edema, no swelling or varicose veins Neuro: awake, alert oriented X3, no focal weakness. Psych: Not anxious Pending Results CBC ordered on 01/07/2025 Hemoglobin A1C (Monitoring) ordered on 01/08/2025 Patient Education Titles WebMD Ignite Patient Education - Cardiac Rehabilitation?? Follow-Up Appointments Added Follow Up ?Time Frame ?Comments Not on Staff, PCP?1 week [facility]?Cardiac Rehab PCP Not on Staff Post Discharge Care Discharge ?01/08/25 12:19:00 EST ?Order Comment:?? Home Health Face to Face ^HomeHealthFTF Results Discharge Labs BLOOD COUNT & DIFF WBC 8.6 k/mm3 ()?? 01/08/2025 08:39 RBC 5.06 m/mm3 ()?? 01/08/2025 08:39 Hgb 14.4 Gm/dL ()?? 01/08/2025 08:39 Hct 44.6 % ()?? 01/08/2025 08:39 MCV 88.1 femtoliters ()?? 01/08/2025 08:39 MCH 28.5 pg ()?? 01/08/2025 08:39 MCHC 32.3 Gm/dL (Low)?? 01/08/2025 08:39 Platelet Count 181 k/mm3 ()?? 01/08/2025 08:39 RDW-SD 46.2 femtoliters ()?? 01/08/2025 08:39 MPV 10.6 femtoliters ()?? 01/08/2025 08:39 Nucleated RBC (Automated) 0.0 #/100 WBC'S ()?? 01/08/2025 08:39 Abs. NRBC 0.0 k/mm3 ()?? 01/08/2025 08:39 Abs. Neut 5.9 k/mm3 ()?? 01/08/2025 08:39 Abs. Lymph 1.3 k/mm3 ()?? 01/08/2025 08:39 Abs. [place] 0.9 k/mm3 ()?? 01/08/2025 08:39 Abs. Eo 0.3 k/mm3 ()?? 01/08/2025 08:39 Abs. Baso 0.1 k/mm3 ()?? 01/08/2025 08:39 Neut % 69.2 % ()?? 01/08/2025 08:39 Lymph % 15.7 % ()?? 01/08/2025 08:39 [place] % 9.9 % ()?? 01/08/2025 08:39 Eos % 4.0 % ()?? 01/08/2025 08:39 Baso % 0.8 % ()?? 01/08/2025 08:39 Imm Gran 0.4 % ()?? 01/08/2025 08:39 Abs. Imm Gran 0.0 k/mm3 ()?? 01/08/2025 08:39 ?? CHEM GENERAL Sodium 136 mmol/L ()?? 01/08/2025 08:39 Potassium 4.6 mmol/L ()?? 01/08/2025 08:39 Chloride 102 mmol/L ()?? 01/08/2025 08:39 Bicarbonate Level 24 mmol/L ()?? 01/08/2025 08:39 Anion Gap 10 mmol/L ()?? 01/08/2025 08:39 Glucose Level 87 mg/dL ()?? 01/08/2025 08:39 BUN 19 mg/dL ()?? 01/08/2025 08:39 Creatinine-Blood 0.92 mg/dL ()?? 01/08/2025 08:39 Estimated GFR Creatinine 88 ML/MIN/1.73 M2 ()?? 01/08/2025 08:39 Calcium 8.7 mg/dL ()?? 01/08/2025 08:39 Magnesium 2.2 mg/dL ()?? 01/08/2025 08:39 Protein, Total 6.9 Gm/dL ()?? 01/08/2025 08:39 Albumin 3.9 Gm/dL ()?? 01/08/2025 08:39 AG Ratio 1.3 ()?? 01/08/2025 08:39 Alkaline Phosphatase 88 units/L ()?? 01/08/2025 08:39 AST (SGOT) 27 units/L ()?? 01/08/2025 08:39 ALT (SGPT) 31 units/L ()?? 01/08/2025 08:39 Bilirubin, Total 0.5 mg/dL ()?? 01/08/2025 08:39 ?? COAG POC ACT-LR 365.0 seconds ()?? 01/07/2025 15:45 ? LIPID STUDIES Cholesterol 100 mg/dL ()?? 01/08/2025 08:39 Triglycerides 109 mg/dL ()?? 01/08/2025 08:39 HDL Cholesterol 45 mg/dL ()?? 01/08/2025 08:39 LDL Cholesterol 33 mg/dL ()?? 01/08/2025 08:39 Non HDL Cholesterol 55 mg/dL ()?? 01/08/2025 08:39 ? URINE OTHER Est Creatinine Clearance 80.43 mL/min ()?? 01/08/2025 09:25 ? >42_ minutes spent on discharge * Herberth BLACKWOOD, Erwin: PERFORM Event Display: Patient Education/Instruction Authored Date: Inpatient Adult Discharge Instructions. [place] [id number] Name: SUHAIL PLAZA : 1950?? Visit: 01/07/2025 12:16?? Current Date: 01/08/2025 12:49 ?? Account: [id number]?? Inpatient Adult Discharge Instructions We would like to thank you for allowing us to assist you with your healthcare needs. The following includes patient education materials and information regarding your injury/illness. Our entire staffstrives to provide an excellent experience for our patients and their families. PLEASE ENSURE YOU FOLLOW-UP PER THE INSTRUCTIONS BELOW! ?? YOUR OPINION IS IMPORTANT TO US! Please complete the survey you may receive by mail or email. Your feedback will be used to make improvements to the healthcare experiences of our patients and their families. Surveys are administered by [employer], [employer] ?? If further treatment with your primary care physician or another doctor is recommended, it is important for you to keep the appointment. Call your primary care physician or return to the Emergency Department immediately if your condition worsens, fails to improve, or new symptoms develop. If you need to find a doctor, you can call [facility] Link for a referral at [phone] or toll free at [phone] or log in to [email or web address].. ?? [facility], in keeping with [facility] guidance, no longer requires face masks for staff, patientsor visitors in most situations. Similiar to time spent indoors at other locations, there is the chance that you were exposed to repiratory viruses during your time with us (such as flu or COVID-19). If you develop symptoms concerning for a viral respiratory infection, please seek testing (and treatment if indicated) from your medical provider or home test kit. ?? You can view and manage your care through the patient portal or by using a health care patti of your choosing. [employer] is a website that allows you to securely view your medical information including your hospital discharge summary, office visit summaries, medications and follow-up visits. You can also request appointments, renew medications, and request access to your medical information using a health care patti of your choosing, or just ask a question. You are entitled to know the individuals who participated in your treatment. This information is available within your medical record and will be provided upon your request. You can enroll at [email or web address] or register d uring your next office visit. You have been discharged from [facility], Patient Care Unit: M5??. If you have any questions regarding these instructions, including results of studies pending, afteryou leave, please call us and we will be happy to assist you 29/05. [facility] Your Care Team Attending Physician Felice Gordon Sr, MD?? Consulting Providers Felice Gordon Sr, MD?? Discharging Providers Felice Gordon Sr, MD Reason for Your Visit Transfer from [facility] for NSTEMI.?? Your Diagnosis Coronary artery disease Hypertension (HFpEF) heart failure with preserved ejection fraction Myasthenia gravis Adrenal insufficiency COPD without exacerbation Hypothyroidism GERD (gastroesophageal reflux disease) Tests Performed Below is a partial list of the tests performed during your hospitalization. You may have had other tests and procedures not included in this list. Please discuss all test results with your provider. CBC w/ Differential Comprehensive Metabolic Panel Lipid Panel Magnesium Level POC Hemochron ACT-LR CBC?? CBC w/ Differential?? Comprehensive Metabolic Panel?? Hemoglobin A1C (Monitoring) (Hgb A1C (Monitoring))?? Lipid Panel?? Magnesium Level?? POC ACT-LR (POC Hemochron ACT-LR)?? Primary Care Provider Not on Staff, PCP?? Advance Directive Health Care Proxy on File Yes - Health Care Proxy Discharge Vitals Temperature: 98.7 DegF Height: 185 cm Pulse Rate: 57 bpm Weight: 94.3 kg Respiratory Rate: 17 br/min Body Mass Index:??27.52 kg/m2??High Systolic Blood Pressure: 112 mm Hg Body surface area: 2.2 Diastolic Blood Pressure: 65 mm Hg ?? Oxygen Saturation: 96 % ?? Studies Pending All studies ordered during this hospital stay have been completed unless listed below. Please discuss all pending results with your provider listed above in these instructions. ?? CBC?? Hemoglobin A1C (Monitoring) (Hgb A1C (Monitoring))?? What to do next Instructions From Your Doctor ?? Orders? 01/08/25 12:19:00 EST?? You Need to Schedule the Following Appointments Follow Up with??Not on Staff, PCP When:??Within 1 week Follow Up with??[facility] Why: Cardiac Rehab Where: [address] [place] [phone] Follow Up with??PCP Not on Staff When:??In 0 days Discharge Medications SUHAIL PLAZA :1950 Visit Date:01/07/2025 Medications: Please continue your medications until treatment is completed or stopped by your provider. Medications not listed below should be discontinued. Discuss any questions related to medications with your provider. What How Much When Instructions Next Dose Changed Nitroglycerin (nitroglycerin 0.4 mg sublingual tablet) 0.4 Milligram Sublingual Every 5 minutes as needed for Chest Pain Duration: 30 Days If chest pain not relieved in 5 minutes after first dose, seek immediate medical attention ?? Pickup at [facility] 3 As needed for Chest Pain. Follow instructions Unchanged Amlodipine (amLODIPine 2.5 mg oral tablet) 1 tab(s) Oral Daily Tomorrow 3/6 Unchanged Aspirin (aspirin 81 mg oral delayed release tablet) 1 tab(s) Oral Daily Pickup at [facility] 3 Tomorrow 3/6 Unchanged Azathioprine (azaTHIOprine 50 mg oral tablet) 1 tab(s) Oral Daily Tomorrow 3/6 Unchanged formoterol-glycopyrrolate (Bevespi Aerosphere 9 mcg-4.8 mcg/ inh inhalation aerosol) 2 inhalation Inhalation Twice a day in the morning and the evening ?? Tonight Unchanged Levothyroxine (levothyroxine 0.05 mg oral tablet) 1 tab(s) Oral Daily Tomorrow 3/6 Unchanged Lisinopril (lisinopril 20 mg oral tablet) 1 tab(s) Oral Daily Tomorrow 3/6 Unchanged Multivitamin (Multivitamin Tablet) Oral Daily Tomorrow 3/6 Unchanged Omeprazole (omeprazole 20 mg oral delayed release tablet) 1 tab(s) Oral Daily Tomorrow 3/6 Unchanged PredniSONE (predniSONE 5 mg oral tablet) 1 tab(s) Oral Daily with food or milk ?? Tomorrow 3/6 Unchanged Pyridostigmine (pyridostigmine 60 mg oral tablet) TAKE 1-2 TABLETS BY MOUTH THREE TIMES A DAY ?? Tomorrow 3/6 Unchanged Rosuvastatin (rosuvastatin 5 mg oral tablet) 1 tab(s) Oral Daily at Bedtime Tonight 3 Pharmacy Information [facility] 3: [address], [place] [id number] [phone] ?? What How Much When Comments Stop Taking olodaterol-tiotropium (Stiolto Respimat) Inhalation Every 24 hours Prescription Given During Visit Aspirin (aspirin 81 mg oral delayed release tablet) - 1 tablet = 81 mg, By Mouth, Daily, # 30 tablet, 0 Refills, [facility], [address] [place] [phone]?? Nitroglycerin (nitroglycerin 0.4 mg sublingual tablet) - 0.4 mg, Sublingual, Every 5 minutes, # 100tablet, 0 Refills, If chest pain not relieved in 5 minutes after first dose, seek immediate medicalattention, [facility], [address] [place] [phone]?? Laboratory Results Below is a partial list of the most recent Laboratory test results done prior to this discharge. You may have had other tests and procedures not included in this list. Please discuss all test resultswith your provider. Est Creatinine Clearance - 80.43 mL/min (01/08/2025) CBC w/ Differential (01/08/2025) ???WBC - 8.6 k/mm3???RBC - 5.06 m/mm3???Hgb - 14.4 Gm/dL???Hct - 44.6 %???MCV - 88.1 femtoliters???MCH - 28.5 pg???MCHC - 32.3 Gm/dL???Platelet Count - 181 k/mm3???RDW-SD - 46.2 femtoliters???MPV - 10.6 femtoliters???Nucleated RBC (Automated) - 0.0 #/100 WBC'S???Abs. NRBC - 0.0 k/mm3???Abs. Neut - 5.9 k/mm3???Abs. Lymph - 1.3 k/mm3???Abs. [place] - 0.9 k/mm3???Abs. Eo - 0.3 k/mm3???Abs. Baso - 0.1 k/mm3???Neut % - 69.2 %???Lymph % - 15.7 %???[place] % - 9.9 %???Eos % - 4.0 %???Baso % - 0.8 %???Imm Gran - 0.4 %???Abs. Imm Gran - 0.0 k/mm3 Comprehensive Metabolic Panel (01/08/2025) ???Sodium - 136 mmol/L???Potassium - 4.6 mmol/L???Chloride - 102 mmol/L???Bicarbonate Level - 24 mmol/L???Anion Gap - 10 mmol/L???Glucose Level - 87 mg/dL???BUN - 19 mg/dL???Creatinine-Blood - 0.92 mg/dL???Estimated GFR Creatinine - 88 ML/MIN/1.73 M2???Calcium - 8.7 mg/dL???Protein, Total - 6.9 Gm/d L???Albumin - 3.9 Gm/dL???AG Ratio - 1.3???Alkaline Phosphatase - 88 units/L???AST (SGOT) - 27 units/L???ALT (SGPT) - 31 units/L???Bilirubin, Total - 0.5 mg/dL Lipid Panel (01/08/2025) ???Cholesterol - 100 mg/dL???Triglycerides - 109 mg/dL???HDL Cholesterol - 45 mg/dL???LDL Cholesterol - 33 mg/dL???Non HDL Cholesterol - 55 mg/dL Magnesium Level (01/08/2025) ???Magnesium - 2.2 mg/dL POC Hemochron ACT-LR (01/07/2025) ???POC ACT-LR - 365.0 seconds You will be contacted within 72 hours with your results. Allergies (NKA means No Known Allergies) NKA Problems Active Problems??(10) (HFpEF) heart failure with preserved ejection fraction?? Adrenal insufficiency?? COPD without exacerbation?? Coronary artery disease?? GERD (gastroesophageal reflux disease)?? Hyperlipidemia?? Hypertension?? Hypothyroidism?? Myasthenia gravis?? Spondylosis of lumbosacral spine with radiculopathy?? Education Materials Below is the list of Educational Leaflet Providered with your Discharge Instructions. [employer] Ignite Patient Education - Cardiac Rehabilitation?? Valuables and Belongings I fully understand and agree that [facility] accepts no responsibility for all my personal property including clothing, toilet articles, radios, jewelry, dentures, hearing aids, rings, money, or any other property that is in my possession or is brought to me after admission. I understand certain valuables may be placed in a hospital safe for a short period of time. I understand that the hospital is not liable for loss or damage due to accident, fire, or other natural occurrence while said property is in the safe. I accept full responsibility for any personal property that I keep with me, and will not hold the hospital responsible in case of loss or disappearance. I acknowledge that i have been encouraged to send valuables and belongings home. ?? Review of Valuable and Belonging List: With patient, With witness Date for Pt to Sign Valuables/Belongings: 01/07/25 13:34:00 ?? Other Discharge Information ? Pulmonary Rehab Status?? Pulmonary Rehab Discharge Status?? Respiratory Rate: 17 br/min ? Cardiac Rehab Assessment?? Cardiac Rehab Inpatient Assessment?? Comments-Education: s/p IN, post procedure and home activity guidelines, risk factor reduction Comments-Smoking Cessation: na Comments-Exercise Activity: progressive activity as tolerated Comments-Nutrition: per RD Comments-Stress Management: healthy coping techniques Comments-Lipids: diet, exercise, medication per MD Comments-Other plan of care: Encourage Phase 2 Common Emergency Awareness Tips IS IT A STROKE? Act FAST and Check for these signs: FACE Does the face look uneven? ARM Does one arm drift down? SPEECH Does their speech sound strange? TIME Call at any sign of stroke ?? Heart Attack Signs Chest discomfort: Most heart attacks involve discomfort in the center of the chest and lasts more than a few minutes, or goes away and comes back. It can feel like uncomfortable pressure, squeezing, fullness or pain. Discomfort in upper body: Symptoms can include pain or discomfort in one or both arms, back, neck, jaw or stomach. Shortness of breath: With or without discomfort. Other signs: Breaking out in a cold sweat, nausea, or lightheaded. Remember, MINUTES DO MATTER. If you experience any of these heart attack warning signs, call to get immediate medical attention! ?? Smoking can increase your chances of developing chronic health problems and can cause harmful effects to other family members in your house. If you smoke, you are strongly encouraged to quit. Please call [facility] Link at [phone] or [phone] ([phone]) or log in to [email or web address] for referrals to smoking cessation programs. ?? 714 Suicide & Crisis Lifeline is available 29/05 if you or someone you know needs to find a reason to keep living. By calling 424 you'll be connected to a skilled, trained counselor at a crisis center in your area. INPATIENT DISCHARGE INSTRUCTIONS SIGNATURE PAGE SUHAIL PLAZA Location:[facility] Registration Date and Time:01/07/2025 12:16 EST Primary Care Physician: Not on Staff, PCP Attending Physician: Heidi Melo MD, Felice Jim, I SUHAIL PLAZA, have received the above patient education materials/instructions and have verbalized understanding. If ambulance or transport services are being used I further acknowledge being given a choice of service. ?? If you need to contact me, please call me at this number: . Patient/Cage Clerk Name: Patient/Cage Clerk Signature: Relationship to Patient: Witness Name/Signature: Date: * Onel Trevino RN: SIGN Heidi Melo MD, Felice Jim: PERFORM, SIGN Heidi Melo MD, Felice A: SIGN, VERIFY Heidi Melo MD, Felice A: VERIFY Event Display: Patient Education Handout Authored Date: [id number] * Onel Trevino RN: PERFORM Event Display: Patient Education Leaflets Authored Date: [id number] Cardiac Rehabilitation ?? [id number] Cardiac Rehabilitation Cardiac rehabilitation (cardiac rehab) is a professionally supervised program designed by your healthcare team. It'll help you recover from your heart problem and??reduce your risk of future heart problems. You may be helped by cardiac rehab if you have certain heart conditions or certain heart procedures. These include: ??? Stable angina ??? Heart attack ??? Stable heart failure ??? Coronary artery bypass surgery ??? Heart valve surgery ??? Angioplasty with or without a stent ??? Heart-lung transplant Along with a tailored exercise program, cardiac rehab provides education and counseling to improve health. The cardiac rehab program includes: ??? An assessment of your health ??? Managing your risk factors such as high cholesterol, high blood pressure, and diabetes ??? Education on diet and medicines ??? Exercise training ??? Losing weight??? Quitting smoking ??? Emotional aspects such as stress, anxiety, or depression It's important to talk with your healthcare provider about the health benefits of enrolling in a cardiac rehab program. Your rehab program Your cardiac rehab program may start while you???re still in the hospital. After you leave the hospital, you may go to a facility for rehab classes. You???ll regain some strength and learn how to exercise safely. Once you do that, your healthcare provider may prescribe an exercise program for you to do at a gym or at home. ?? As an inpatient You may start light exercise within 2 days of entering the hospital once you have the healthcare provider's approval. Your activity may be limited based on the procedure you had, such as bypass surgery, valve replacement, coronary angioplasty, or coronary stenting. ?? As an outpatient As early as 1 to 2 weeks after leaving the hospital, you can join a supervised rehab program. Ask for a referral from your healthcare provider. Before leaving the hospital, your provider can provide contact and enrollment information. See if your healthcare team can get an appointment set up beforeyou're discharged home. ??? Exercises will be prescribed to help you build strength and movement. The first month will mostlikely include easier exercises. Over time, you???ll exercise harder to improve your endurance. ???Your heart, oxygen saturation,??and blood pressure may be watched as you work. ??? Cardiac rehab programs are tailored to meet your needs. Some people may take part in the program for 6 weeks, while others will do it for 6 months or longer. ??? Some people may not have access to a facility-based cardiac rehab. Home-based cardiac rehab is considered in some cases for some people. Virtual programs may also be available. Ask your healthcare provider if these are an option for you. ?? Maintain the benefits to your health Don???t stop once you???ve finished your program! Make what you learned in rehab a regular part of your life. Here are some tips: ??? Work out at home or at a gym. Try watching a new workout video each week. Take an exercise class. Find something that keeps you interested. ??? Ask family and friends to help you stay motivated. The healthy lifestyle changes can benefit them as well by partnering up and working out together. ??? Make other lifestyle changes to improve your heart and overall health. Quit smoking. Make changes to lower your stress. Lose excess weight. And lower your blood pressure and cholesterol. ??? It's important to keep an open conversation with your healthcare provider about your progress and goals. ?? Last Reviewed Date: 2024 ?? [id number] [employer]. All rights reserved. This information is not intended as a substitute for professional medical care. Always follow your healthcare professional's instructions. ?? * Event Display: Hemodynamic Procedure Report Authored Date: [id number] History and physical note * Dary CULLEN, Caprice Allen: PERFORM Event Display: History and Physical Hospital Authored Date: [id number] Patient: ??SUHAIL PLAZA ? Age:??74 Years?Sex:??Male?:??1950?? Chief Complaint/Reason for Consultation Transfer from [facility] for NSTEMI. History of Present Illness 74-year-old male with past medical history significant for hypertension, hyperlipidemia,??HFpEF,??nonobstructive coronary artery disease (CT coronary in 11/2022??showed focal stenosis??of the proximalRCA??50-60%,??calcific plaque in the mid LAD??with mild stenosis 25-30%,??and widespread minimal tomild plaque),??myasthenia gravis, COPD,??hypothyroidism, adrenal insufficiency, GERD,??and??lumbosacral spine spondylosis with radiculopathy??who presented to [facility] on 01/03/2025??complaining of left-sided chest pain intermittently over the prior 2 days.?? Of note, his of 50 years had just ??prior to the onset of this.?? He reported the pain as constant on the leftside of the chest without radiation,??with chronic shortness of breath not exacerbated by the pain.??He denied any nausea, vomiting, or diaphoresis.?? There was no relationship to position or exertion.?? He did report some worsening after eating.?? He denied any cough or fever.?? No abdominal pain, diarrhea, or urinary symptoms.?? Chest pain was not relieved by home nitroglycerin,??but the prescription was old. ?? At [facility], the patient's??pain was alleviated by??nitroglycerin sublingual.?? He remained afebrile and hemodynamically stable.?? He did not have respiratory distress or hypoxia.?? EKGdemonstrated sinus rhythm with RBBB and??LPFB,??but no ischemic changes.?? His initial??high-sensitivity troponin I was 103.9,??with repeat 112.4, but then peaked up to 160.?? Chest x-ray was negative for active disease with mild cardiomegaly.?? The patient was admitted to the hospital??and startedon heparin drip. ??He was continued on his aspirin, statin??and blood pressure medications.?? He did undergo echocardiogram??on 01/06/2025 which showed normal??ejection fraction 60 to 65%,??diastolic dy sfunction, and no regional wall motion abnormalities.?He was evaluated by cardiology,??and now transferred here to [facility] today??for cardiac catheterization. ?? Here at [facility],??the patient remains afebrile and hemodynamically stable.?? No respiratory distress or hypoxia.?? He does still complain of 1 out of 10 pain in his left upper chest.?? He underwent cardiac catheterization this afternoon which showed moderate disease in the proximal segment of the RCA which was interrogated, and was IRF negative.?? There were minimal luminal irregularities in the LAD and left circumflex.?? It was recommended to continue aspirin, medical management, and risk factor adjustment. Review of Systems Other than those positives as noted in the HPI above, all other systems were reviewed and are negative. Objective Measurements?? Height: 185 cm (01/07/25) Weight: 94.2 kg (01/07/25) Dry Weight: 94.2 kg (01/07/25) Body Mass Index:??27.52 kg/m2??High (01/07/25) ? Vital Signs?? Temperature: 97.8 DegF (01/07/25 17:10:00) Temperature Route: Oral (01/07/25 17:10:00) Pulse Rate:??51 bpm??Low (01/07/25 17:10:00) Heart Rate Monitored: 56 bpm (01/07/25 16:45:00) Respiratory Rate: 18 br/min (01/07/25 17:10:00) Systolic Blood Pressure: 126 mm Hg (01/07/25 17:10:00) Diastolic Blood Pressure: 59 mm Hg (01/07/25 17:10:00) Blood pressure sites: Arm, left (01/07/25 17:10:00) Mean Arterial Pressure: 81 mm Hg (01/07/25 17:10:00) Pulse Pressure: 67 mm Hg (01/07/25 17:10:00) Oxygen Saturation: 99 % (01/07/25 17:10:00) Mode of Delivery (Oxygen): Room air (01/07/25 17:10:00) Early Warning Score: 2 (01/07/25 17:11:19) ? Pain Scores?? No qualifying data available. ? Physical Exam General Appearance: Alert, no distress, answers questions appropriately HEENT: Normocephalic, atraumatic, PERRL, EOMI, no scleral icterus, no facial droop, moist mucous membranes Neck: Supple, no JVD Cardiac: RRR, S1 & S2 present, no m / r / g appreciated Chest: Clear to auscultation bilaterally, no wheezing / ronchi / rales Abdomen: Soft, nontender, no distention, no rebound or guarding, no masses, normal bowel sounds in all quadrants Extremities: No clubbing, cyanosis, or edema. ??2+ distal pulses. ??Capillary refill < 3 seconds. ??TR band in place right wrist Skin: Warm, no rash Neuro: ??A & O x 3, CN III-XII intact, no focal motor or sensory deficits Psych: ??Stable mood, appropriate affect Assessment/Plan Assessment:??74-year-old male with past medical history significant for hypertension, hyperlipidemia,??HFpEF,??nonobstructive coronary artery disease (CT coronary in 11/2022??showed focal stenosis??ofthe proximal RCA??50- 60%,??calcific plaque in the mid LAD??with mild stenosis 25-30%,??and widespread minimal to mild plaque),??myasthenia gravis, COPD,??hypothyroidism, adrenal insufficiency, GERD,??and??lumbosacral spine spondylosis with radiculopathy??who presented to [facility] on 01/03/2025??complaining of left-sided chest pain intermittently over the prior 2 days.??Of note, his of 50 years had just ??prior to the onset of this.? At [facility], the patient's??pain was alleviated by??nitroglycerin sublingual.??Workupwas concerning??for NSTEMI with initial??high-sensitivity troponin I 103.9, but then peaked up to 160.??The patient was admitted to the hospital??and started on heparin drip.??He was continued on hisaspirin, statin??and blood pressure medications.??He did undergo echocardiogram??on 01/06/2025 which showed normal??ejection fraction 60 to 65%,??diastolic dysfunction, and no regional wall motion abnormalities.?He was evaluated by cardiology,??and now transferred here to [facility] today??for cardiac catheterization. ?? Non-ST elevation IN (NSTEMI) (I21.4) Coronary artery disease (I25.10):??He did still complain of 1 out of 10 pain in his left upper chest on arrival.??He underwent cardiac catheterization this afternoon which showed moderate disease in the proximal segment of the RCA which was interrogated, and was IRF negative.??There were minimal luminal irregularities in the LAD and left circumflex.??It was recommended to continue aspirin, medical management, and risk factor adjustment.??He is euvolemic on exam with blood??pressure controlled.??Echo at [facility] showed preserved ejection fraction.?Presentation is??consistent with stress cardiomyopathy (???in setting of his 's 2 days prior to arrival). - Admit to the medical floor, continuous EKG monitoring - Heparin drip now discontinued - Continue aspirin 81 mg daily - Continue rosuvastatin as prescribed; check lipid panel and hemoglobin A1c - Avoid beta amrik with underlying bradycardia - Nitroglycerin sublingual 0.4 mg as needed for recurrent chest pain - Monitor comprehensive metabolic panel - Cardiac rehab??referral ?? Hypertension (I10) (HFpEF) heart failure with preserved ejection fraction (I50.30):? Blood pressure is well-controlled. Euvolemic on exam.??Preserved EF on echo. Renal function is stable. Continue amlodipine and lisinopril as prescribed. ?? Myasthenia gravis (G70.00):??Not in active flare. Continue??pyridostigmine and azathioprine as prescribed. ?? Adrenal insufficiency (E27.40):??Not in crisis. Continue prednisone as prescribed. ?? COPD without exacerbation (J44.9):??No acute bronchospasm or hypoxia. Resume home inhaler at discharge. Albuterol MDI will be ordered as needed. ?? Hypothyroidism (E03.9):??Continue levothyroxine as prescribed. ?? GERD (gastroesophageal reflux disease) (K21.9):??Continue PPI as prescribed. ?? VTE Prophylaxis:??Lovenox 40 mg subcutaneously daily until fully ambulatory. ?VTE Prophylaxis Assessment:??VTE Prophylaxis Ordered ?? Discharge Planning:??Anticipate discharge home. 1 to 2 days hospitalization. ?? Code Status:??FULL. ?Order Code Status:??Code Status Ordered ?? I spent a total of??78 minutes today reviewing the chart / medical records, evaluating the patient,evaluating and interpreting laboratory and imaging data, formulating and discussing the treatment plan, and documenting the encounter. ? Histories Allergies Allergies ?(Active and Proposed Allergies Only) NKA? (Severity: Unknown severity, Onset: Unknown) ? Past Medical History/Problem List Active Problems(10) (HFpEF) heart failure with preserved ejection fraction Adrenal insufficiency COPD without exacerbation Coronary artery disease GERD (gastroesophageal reflux disease) Hyperlipidemia Hypertension Hypothyroidism Myasthenia gravis Spondylosis of lumbosacral spine with radiculopathy ? Past Surgical History Right inguinal hernia repair??10/2023 Left inguinal hernia repair Carpal tunnel surgery Spinal cord stimulator Right THR??02/2018 Lung surgery 11/2020 ? Social History The patient is recently . ??He ambulates independently. Tobacco: Never. EtOH:??Rare.?? Drugs: Never. ? Family History No??reported history of??premature CAD. ?? Medications Home Medications Amlodipine (amLODIPine 2.5 mg oral tablet)??1 tab(s) 2.5 Milligram By Mouth Daily Aspirin (aspirin 81 mg oral delayed release tablet)??81 Milligram 1 tablet By Mouth Daily Azathioprine (azaTHIOprine 50 mg oral tablet)??50 Milligram 1 tablet By Mouth Daily formoterol-glycopyrrolate (Bevespi Aerosphere 9 mcg-4.8 mcg/inh inhalation aerosol)??2 inhalation Inhalation 2 times a day in the morning and the evening Levothyroxine (levothyroxine 0.05 mg oral tablet)??1 tab(s) 50 Microgram By Mouth Daily Lisinopril (lisinopril 20 mg oral tablet)??20 Milligram 1 tablet By Mouth Daily Multivitamin (Multivitamin Tablet)??By Mouth Daily Omeprazole (omeprazole 20 mg oral delayed release tablet)??1 tab(s) 20 Milligram By Mouth Daily PredniSONE (predniSONE 5 mg oral tablet)??1 tab(s) 5 Milligram By Mouth Daily with food or milk Pyridostigmine (pyridostigmine 60 mg oral tablet)??TAKE 1-2 TABLETS BY MOUTH THREE TIMES A DAY Rosuvastatin (rosuvastatin 5 mg oral tablet)??1 tab(s) 5 Milligram By Mouth Daily at bedtime ? * Event Display: History and Physical Hospital Authored Date: * Event Display: History and Physical Hospital Authored Date: EKG study * Event Display: ECG 12-Lead Authored Date: Please click on pdf link to open report * Event Display: ECG 12-Lead Authored Date: Ventricular Rate: 56 BPM Atrial Rate: 56 BPM P-R Interval: 266 ms QRS Duration: 146 ms Q-T Interval: 484 ms QTC Calculation(Bazett): 467 ms P [place]: 6 degrees R [place]: 129 degrees T [place]: -35 degrees Sinus bradycardia with 1st degree A-V block Right axis deviation Non-specific intra-ventricular conduction block Abnormal ECG When compared with ECG of 07-Jan-2025 16:15, No significant change was found Confirmed by CAPRICE NULL MD ([id number]) on 01/08/2025 11:39:44 AM [place]: CAPRICE NULL MD * Event Display: ECG 12-Lead Authored Date: Please click on pdf link to open report * Event Display: ECG 12-Lead Authored Date: Ventricular Rate: 51 BPM Atrial Rate: 51 BPM P-R Interval: 280 ms QRS Duration: 146 ms Q-T Interval: 516 ms QTC Calculation(Bazett): 475 ms P [place]: 3 degrees R [place]: 129 degrees T [place]: -44 degrees Sinus bradycardia with 1st degree A-V block Right axis deviation Right bundle branch block Abnormal ECG No previous ECGs available Confirmed by Real Reed ([id number]) on 01/07/2025 4:24:54 PM [place]: Real Reed [facility] Progress note * Erwin Kevin RN: PERFORM, SIGN, VERIFY Event Display: Progress Note Hospital Authored Date: [id number] Patient: SUHAIL PLAZA Age: 74 years Sex: Male : 1950 Associated Diagnoses: None Author: Erwin Kevin RN Findings Problem Related to Alteration in Cardiac Function (new) : Alteration in Cardiac Function/new 01/08/2025 9:00 EST Alteration in Cardiac Status Related to Cardiac Procedure, Chest pain, Other: s/p Goals & Outcomes, Cardiac Status Pt will resume/maintain adequate cardiac output, Pt will resume/maintain adequate hemodynamic status, Pt will resume/maintain adequate respiratory function, Pt will resume/maintain intact neuro function, Pt will maintain adequate GI/ function appropriate for pt, Pt/caregiver will state understanding of procedure, Pt will state pain at procedure site to be tolerable Cardiac Interventions Implemented Assess/monitor cardiac status, Assess/monitor neuro status, Assess/monitor respiratory status, Call/Report variances in ECG to provider, Ensure adequate caloric intake, Monitor & document daily weight, Monitor anticoagulation values, Prep pt for treatments & procedures, Teach/encourage deep breath & cough exercises, Teach/encourage use of incentive spirometer, Team conversation regarding appropriate level of care, Turn & reposition Q2 hours per activity restrictions BH Goals/Interventions, Cardiac Yes Cardiac, Problem Start 01/07/2025 18:32 Reviewed Plan with, Cardiac Status Patient Patient Progression, Cardiac Status Patient progressing according to plan . Evaluation Pt A&Ox4, clear speech, follows commands. Denies SOB, dizziness, palpitations, N/V. NS 50s-60s 1degree with PVCs on tele. Lungs clear, no s/s of resp distress, RA. Pt stated I had some chest pain around 5 am , no C&P during morning assessment, ekg completed, Heidi CULLEN notified. Pt complained of 7/10 lower back pain, lidocaine patch applied. OOB steady gait noted. Tolerates food and liquids well. Plan for dc today. Call abraham within reach, bed in the lowest position, vitals taken per protocol. For a full assessment see CIS. . * Rufina Riley RN: PERFORM, SIGN, VERIFY Event Display: Progress Note Hospital Authored Date: [id number] Patient: SUHAIL PLAZA Age: 74 years Sex: Male : 1950 Associated Diagnoses: None Author: Rufina Riley RN Findings Problem Related to Alteration in Cardiac Function (new) : Alteration in Cardiac Function/new 01/07/2025 23:00 EST Alteration in Cardiac Status Related to Cardiac Procedure Goals & Outcomes, Cardiac Status Pt will resume/maintain adequate cardiac output, Pt will resume/maintain adequate hemodynamic status, Pt will resume/maintain adequate respiratory function, Pt will resume/maintain intact neuro function, Pt will maintain adequate GI/ function appropriate for pt, Pt/caregiver will state understanding of procedure, Pt will state pain at procedure site to be tolerable Cardiac Interventions Implemented Assess/monitor cardiac status, Assess/monitor neuro status, Assess/monitor respiratory status, Assess for tolerance of IV infusions; verify rate & dose, Call/Report variances in ECG to provider, Document & Monitor O2 Sats; Administer O2 as ordered, Ensure adequate caloric intake, If no bowel movement in 3 days activate bowel regime, Monitor & document daily weight, Obtain 12 Lead ECG and CXR as ordered, Teach/encourage deep breath & cough exercises, Use adjunctive therapies per Standards of Practice Goals/Interventions, Cardiac Yes Cardiac, Problem Start 01/07/2025 18:32 Reviewed Plan with, Cardiac Status Patient Patient Progression, Cardiac Status Patient progressing according to plan . Nursing Data Vital Signs : VITAL SIGNS SECTION 01/07/2025 21:12 EST Systolic Blood Pressure 110 mm Hg Diastolic Blood Pressure 60 mm Hg Blood pressure sites Arm, left Mean Arterial Pressure 77 mm Hg Pulse Pressure 50 mm Hg 01/07/2025 20:24 EST Early Warning Score 3.00 01/07/2025 20:22 EST Temperature 97.7 DegF Temperature Route Oral Pulse Rate 53 bpm L Respiratory Rate 20 br/min Systolic Blood Pressure 89 mm Hg L Diastolic Blood Pressure 53 mm Hg L Blood pressure sites Arm, left Mean Arterial Pressure 65 mm Hg Pulse Pressure 36 mm Hg Oxygen Saturation 97 % Mode of Delivery (Oxygen) Room air . Evaluation (Pt. is A&Ox4. SB high 50s with First Degree HB on tele. Denies CP, SOB, dizziness, lightheadedness and palpitations. Lungs are clear on room air. Pt. standby when ambulating with walker or cane. Last BM 01/06. R. radial CDI. Scab on L. haile open to air. Pt. able to make needs known. Bed is in lowest position with call light in reach. ) * Lala Phipps RN: PERFORM, SIGN, VERIFY, SIGN, MODIFY Event Display: Progress Note Hospital Authored Date: [id number] Patient: SUHAIL PLAZA Age: 74 years Sex: Male : 1950 Associated Diagnoses: None Author: Lala Phipps RN Findings Problem Related to Alteration in Cardiac Function (new) : Alteration in Cardiac Function/new 01/07/2025 18:00 EST Alteration in Cardiac Status Related to Cardiac Procedure Goals & Outcomes, Cardiac Status Pt will resume/maintain adequate cardiac output, Pt will resume/maintain adequate hemodynamic status, Pt will resume/maintain adequate respiratory function, Pt will resume/maintain intact neuro function, Pt will maintain adequate GI/ function appropriate for pt, Pt/caregiver will state understanding of procedure, Pt will state pain at procedure site to be tolerable Cardiac Interventions Implemented Assess/monitor cardiac status, Assess/monitor neuro status, Assess/monitor respiratory status, Assess for tolerance of IV infusions; verify rate & dose, Ensure adequate caloric intake, Monitor & document daily weight, Monitor anticoagulation values, Apply pressure at puncture site if hematoma develops, Assess baseline peripheral pulses, Assess for post procedural discomfort, Assess for post procedural hematoma at site, Assess procedure site for distal pulses, Pre/post cath guideline Goals/Interventions, Cardiac Yes Cardiac, Problem Start 01/07/2025 18:32 Reviewed Plan with, Cardiac Status Patient Patient Progression, Cardiac Status Plan Initiation . Narrative/Incidental Pt arrived from [facility], A&Ox4, lungs are clear on room air, normal sinus/sinus germain on tele. Pt ambulating in the room standby with a walker, denying any chest pain, SOB or palpitations. Pt down to the slab stripper, right radial accessed TR band in place, no signs of hematoma. TR band removal started, incision started bleeding, air readded and bleeding stopped. Cross covering Nora Rondon made aware. Pt up in bed eating meals, please see biophysical and interactive flow sheets formore information. Call abraham within reach, bed wheels locked and in lowest position, all needs have been met at this time.. * Desire RN, Lala: PERFORM Event Display: Progress Note Hospital Authored Date: Re-evaluated TR band, good pulses, 1cc removed with night RN, no bleeding, night RN to continue TR band removal protocol. Patient Care team information Care Team Personnel Name: Gifty Frankel MD Position: [facility] Physician - Primary Care Member Role: PCP Address: [address] Telecom: Name: Rufina Riley RN Position: S RN Member Role: Primary Care Nurse Name: Erwin Kevin RN Position: [facility] RN Member Role: Primary Care Nurse Care Team Related Persons Name: NIA DON Insurance Providers Guarantor name: MAYA Health Plan Information #: 2 Payer: MEDICARE PART B OUTPT Member Number: [id number] Policy Number: NA Group Number: NA Health Plan Information #: 3 P[facility] [employer] Member Number: [id number] Policy Number: NA Group Number: NA Health Plan Information #: 4 Payer: [facility] Member Number: [id number] Policy Number: NA Group Number: NA Health Plan Information #: 1 Payer: MEDICARE A INPT 25 Member Number: [id number] Policy Number: NA Group Number: NA
--- OUTSIDE RECORDS SUMMARY | 2025-01-15 10:52 | XMS_ITS | Clinical Summary ---
Author Organization [facility] Address [address] [place] [id number] Care Team Providers Care Church History Teacher Name Role Phone Gifty Frankel MD Primary Care Provider [phone] Social History Tobacco Use Types Packs/Day Years [...] age to complete this topic Care Teams Church History Teacher Relationship Specialty Start Date End Date Gifty Frankel MD PCP - General Internal Medicine 01/25/21
== END 2025-01-15 10:53 | disposition home or self-care (01) ==
LOC: HO.HMCC 09:46
PROVIDERS: PCP Internal Medicine; Visit Provider Internal Medicine
DX: G70.00 Myasthenia gravis without (acute) exacerbation (principal); J44.9 Chronic obstructive pulmonary disease, unspecified; I25.10 Atherosclerotic heart disease of native coronary artery without angina pectoris; E03.9 Hypothyroidism, unspecified; E78.5 Hyperlipidemia, unspecified; M51.369 Other intervertebral disc degeneration, lumbar region without mention of lumbar back pain or lower extremity pain

== ENCOUNTER → 2025-01-15 09:45 | Outpatient (BNVA) | payer MEDICARE, MEDICAID, SELFPAY | PROVIDERS: PCP Internal Medicine; Visit Provider Internal Medicine | DX: G47.00 Insomnia, unspecified (principal); I25.10 Atherosclerotic heart disease of native coronary artery without angina pectoris; E03.9 Hypothyroidism, unspecified; E78.5 Hyperlipidemia, unspecified; J44.9 Chronic obstructive pulmonary disease, unspecified; M51.369 Other intervertebral disc degeneration, lumbar region without mention of lumbar back pain or lower extremity pain | CPT/HCPCS: 96127; 99212 ==

== ENCOUNTER 2025-01-30 09:58 | Outpatient (AMB) | payer MEDICARE, MEDICAID, SELFPAY ==
[2025-01-30 10:01] VITALS: BP 124/62; PULSE 77; O2SAT 96; BMI 28.1
--- NOTE | 2025-01-30 10:01 | MHC.OFFVIS ---
Vital Signs 01/30/25 10:01 Height 6 ft Weight 207 lb 8 oz BMI 28.1 BP 124/62 Blood Pressure Location Rt brachial Position Sitting Pulse 77 Pulse Source Pulse Oximeter Pulse Oximetry (%) 96 Oxygen Delivery Method Room Air Intake Visit Reasons: intervertebral disc degeneration, lumbar region Allergies No Known Allergies [No Known Allergies*] Allergy (Verified 01/30/25 10:02) HPI Comments Details: Olegario is back in my office with complains on pain in the lower back in the projection L3 L4 lumbar vertebra. He continues to use spinal cord stimulator Nevro, he enjoys good pain relief from Nevro 1 lead spinal cord stimulator. The lead is minimally dislodged and yet it provides good pain relief in the right lower extremity. However his axial back pain is not affected by the stimulation. He reports the axial back pain is 7 to 9/10 on regular basis. It constitutes intractable lower back pain. In the past we discussed treatment of intrathecal pain pump for this condition. He asks me to schedule him for the trial. His psychological evaluation just 1 month ago. We will ask the [facility] point psychology to endorse the psychological evaluation. Unfortunately the me refused and then the patient will need to go for fresh psychological evaluation. Nevertheless I am going to schedule him for the trial with morphine. He also complains on pain in the right groin area. He had surgery with Dr. Romero for right inguinal hernia in the past. He went for the consult with Dr. Romero and he was sent for the CT scan. CT scan did not show any recurrent hernia but demonstrated edema which surrounds his ureter, in Dr. Romero's opinion it might be a result of passing kidney stone. He is under care of urologist Dr. Syed Adams for nephrolithiasis. Prior: Nevro SCS the position of the lead is changed compared to it original position on the CT scan it looks like that lead migrated down to the T10-T11 area. Patient reports that it helps better with his sciatica however it fails to help axial back pain. We agreed today that he will go to Dr. Romero and he will discuss the surgery and whether not it is indicated for him. After that he will come back and we will discuss possibility of treatment of his pain with different modalities. I currently think about intrathecal pain pump he is not on any opioids so the pain pump with Dilaudid might be a good way of treating his pain. Because he is suffering from myasthenia gravis I am not sure that addition of any medications to the pump which provide muscular relaxation such as bupivacaine and or baclofen would be a good idea to consider but the time only will show what we can do about it. Prior: pleasant 70 y.o. status post a implant of the SCS Nevro. He reported very good help with the pain with single lead he has in his lumbar spine. The implant was very difficult. The patient has severe DDD, severe narrowing of the intalaminar spaces and abundant epidural adhesions. I have managed to insert only one epidural electrode array lead originally to T9 level. The 2nd lead was not possible to insert. He is also suffering from myasthenia gravis. 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) Back pain Arthritis JULIEN (dyspnea on exertion) Disc degeneration, lumbar Hyperglycemia Abdominal pain Pulmonary nodule Hyperlipidemia COPD (chronic obstructive pulmonary disease) Myasthenia gravis Scoliosis Spondylosis of lumbosacral spine with radiculopathy Degenerative disc disease, lumbar Hypothyroid Leg cramps Emphysema of lung Iron deficiency anemia Osteoarthritis Diastolic dysfunction Hypertension Incomplete emptying of bladder due to benign prostatic hyperplasia Nocturia associated with benign prostatic hyperplasia BPH loc w urin obs/LUTS Surgical History History of right inguinal hernia repair (~10/31/23) History of carpal tunnel surgery Hx of hand surgery History of left inguinal hernia repair S/P insertion of spinal cord stimulator History of colonoscopy History of lung surgery (~11/2020) History of total right hip arthroplasty (~02/2018) History of hydrocelectomy Hx of tonsillectomy Family History Father No problems noted. Mother No problems noted. Social History Household Members: None Household Members Other:: spouse has dementia Housing: House Are you a primary child care sitter to a significant other at home: Yes (-has dementia) Do you presently have visiting nurse or other home services: No Alcohol intake: never Patient Tobacco Use Status: Never used Tobacco e-Cigarette/Vaping Use: Never Used Second Hand Smoke Exposure: No Advance Directives Date on File: 11/01/23 service: No Current occupational status: retired Current occupation: right handed Cognitive needs: No Hearing needs: No Vision needs: No Review of Systems Const All systems reviewed & are unremarkable except as noted in HPI and below Physical Exam Vital Signs: Last Vital Signs Pulse 77 01/30/25 10:01 BP 124/62 01/30/25 10:01 Pulse Ox 96 01/30/25 10:01 Oxygen Delivery Method Room Air 01/30/25 10:01 BMI result Body Mass Index 28.1 Const General: comfortable, no acute distress, alert and awake HEENT Head: Yes normal to inspection Eyes General: appearance normal, both eyes and all related structures Neck Neck: Yes normal visual inspection and Yes no JVD Resp Effort & Inspection: able to speak in complete sentences and no audible wheezes Cardio Jugular venous distension: no JVD GI Other: There is tenderness on palpation in the projection of the right iliac crest and right pelvis. Sacroiliac joint provocative tests are negative. Inspection: Yes normal to inspection Back/Spine/Pelvis Other: Bending forward with ease a and bending backwards causes him severe pain aggravation. Able to walk on the tip toes with a limp in the left, antalgic gait on the left was walking on the heels as well. Objective weakness of the left lower extremity. Straight leg rising is negative for pain increase in the back, and dorsiflexion of the foot does not cause pain aggravation in the back. Lateral rotation of the foot does not cause pain in the hip, does not cause pain in the groin. Provocative test of the sacroiliac joint on the right are negative Extrem Other: no clubbing, no edema, no sign of phlebitis, PT pulse bilaterally is very easily operate handed, regular rate and rhythm. Dorsalis pedis is non sensed on physical exam,. Assessment & Plan Assessment & Plan (1) Myasthenia gravis: Comment: involving eyelids, right facial muscles & lower extremities-follows w/Dr. Saez Code(s): G70.00 - Myasthenia gravis without (acute) exacerbation Category: Medical (2) Rotator cuff tear arthropathy of right shoulder: Code(s): M75.101 - Unspecified rotator cuff tear or rupture of right shoulder, not specified as traumatic; M12.811 - Other specific arthropathies, not elsewhere classified, right shoulder Category: Medical (3) Postlaminectomy syndrome, lumbar: Code(s): M96.1 - Postlaminectomy syndrome, not elsewhere classified Category: Medical (4) Chronic pain syndrome: Code(s): G89.4 - Chronic pain syndrome Category: Medical Plan 1. Successful surgery with Dr. Romero to fix right inguinal hernia. He continues to endorse pain in the right groin. See discussion as above. Dr. Romero thinks that it is periurethral edema secondary to stone passing. 2. Single lead Nevro SCS even dislodged down to T10-T9 position still helps the patient with radicular symptoms on the right. 3. Patient still complains on axial back pain for which Nevro is not very effective. Revision of the spinal cord stimulator is not very feasible, his epidural space is full of adhesions and the procedure of Nevro insertion was very difficult. Pain pump was discussed with the patient. I will schedule him for the trial of I DDD with morphine. We will need to order morphine preservative-free for the trial 100 micro g per mL in 3 mL of this concentration in preservative-free normal saline. 4. Good results of the interscalene brachial plexus block on the right, patient had 2. days of almost complete pain relief. Psychological evaluation patient needs to go for another psychological evaluation. We will schedule him for the psychological evaluation. At this appointment he does not complain on the pain in the right shoulder. Patient Instructions: I here by testify that I spent 42 minutes in conversation with this patient as well as planning his care and organizing this note. Coding Level of Care Code Est Pt Level 5 (59106) Diagnoses Myasthenia gravis G70.00 Rotator cuff tear arthropathy of right shoulder M75.101; M12.811 Postlaminectomy syndrome, lumbar M96.1 Chronic pain syndrome G89.4
== END 2025-01-30 10:32 | disposition home or self-care (01) ==
LOC: HO.PMC 09:59
PROVIDERS: PCP Internal Medicine; Referring Provider Internal Medicine; Visit Provider Anesthesiology
DX: M75.101 Unspecified rotator cuff tear or rupture of right shoulder, not specified as traumatic (principal); M12.811 Other specific arthropathies, not elsewhere classified, right shoulder; M96.1 Postlaminectomy syndrome, not elsewhere classified; G70.00 Myasthenia gravis without (acute) exacerbation; G89.4 Chronic pain syndrome
CPT/HCPCS: 99215

== ENCOUNTER → 2025-01-30 09:58 | Outpatient (BNVA) | payer MEDICARE, MEDICAID, SELFPAY | PROVIDERS: PCP Internal Medicine; Referring Provider Internal Medicine; Visit Provider Anesthesiology | DX: G70.00 Myasthenia gravis without (acute) exacerbation (principal); M75.101 Unspecified rotator cuff tear or rupture of right shoulder, not specified as traumatic; M12.811 Other specific arthropathies, not elsewhere classified, right shoulder; M96.1 Postlaminectomy syndrome, not elsewhere classified; G89.4 Chronic pain syndrome; Z96.82 Presence of neurostimulator | CPT/HCPCS: 99212 ==

== ENCOUNTER 2025-01-31 13:18 | Outpatient (AMB) | payer MEDICARE, MEDICAID, SELFPAY ==
[2025-01-31 13:26] VITALS: BP 124/60; PULSE 67; BMI 28.1
--- NOTE | 2025-01-31 13:26 | A.OFFVIS_ITS ---
Vital Signs 01/31/25 13:26 Height 6 ft Weight 207 lb 3.752 oz BMI 28.1 BP 124/60 Blood Pressure Location Lt brachial Position Sitting Pulse 67 Pulse Source Pulse Oximeter Intake Visit Reasons: ED follow up-[facility] Radiation Protection Engineer Required: No Accompanied by: Sister Allergies No Known Allergies [No Known Allergies*] Allergy (Verified 01/30/25 10:02) Medication List - Last Reconciled 01/31/25 by LANIE RolleC acetaminophen (Tylenol) 650 mg PO Q6H PRN amlodipine 2.5 mg PO DAILY aspirin 81 mg PO DAILY azathioprine 50 mg PO DAILY glycopyrrolate-formoterol 9-4.8 mcg (Bevespi Aerosphere) 2 puffs inhalation BID levothyroxine 50 mcg PO DAILY@0600 lisinopril 20 mg PO DAILY multivitamin 1 tab PO DAILY nitroglycerin 0.4 mg sublingual Q5M PRN omeprazole 20 mg PO DAILY@0630 prednisone 5 mg PO DAILY pyridostigmine bromide 60 - 120 mg PO TID rosuvastatin 5 mg PO DAILY 90 days sertraline mg PO DAILY Ventolin HFA 90 mcg/actuation (albuterol sulfate) 2 puffs inhalation Q4-6H PRN NS HPI HPI ED follow up-[facility]: Details: Olegario is a 75 yo male with PMH of HTN, HLD, LVH, COPD, chronic reports of shortness of breath, syncope, nonobstructive coronary artery disease who recently presented to [facility] with chest discomfort. His troponins were elevated and he underwent cardiac catheterization showing nonobstructive coronary disease. Today he reports that he has been doing well since his hospital discharge. He did have a little discomfort in the chest area that went away when he changed his position in bed. No chest discomfort brought on by exertion. He has his usual shortness of breath with exertion which is unchanged. No PND, orthopnea or edema. No lightheadedness, presyncope, syncope. Compliant with meds. Is grieving over the loss of his . He is trying to keep busy working in his garden. His sister is present. 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) Back pain Arthritis JULIEN (dyspnea on exertion) Disc degeneration, lumbar Hyperglycemia Abdominal pain Pulmonary nodule Hyperlipidemia COPD (chronic obstructive pulmonary disease) Myasthenia gravis Scoliosis Spondylosis of lumbosacral spine with radiculopathy Degenerative disc disease, lumbar Hypothyroid Leg cramps Emphysema of lung Iron deficiency anemia Osteoarthritis Diastolic dysfunction Hypertension Incomplete emptying of bladder due to benign prostatic hyperplasia Nocturia associated with benign prostatic hyperplasia BPH loc w urin obs/LUTS Surgical History History of right inguinal hernia repair (~10/31/23) History of carpal tunnel surgery Hx of hand surgery History of left inguinal hernia repair S/P insertion of spinal cord stimulator History of colonoscopy History of lung surgery (~11/2020) History of total right hip arthroplasty (~02/2018) History of hydrocelectomy Hx of tonsillectomy Family History Father No problems noted. Mother No problems noted. Social History Household Members: None Household Members Other:: spouse has dementia Housing: House Are you a primary physician assistant primary care to a significant other at home: Yes (-has dementia) Do you presently have visiting nurse or other home services: No Alcohol intake: never Patient Tobacco Use Status: Never used Tobacco e-Cigarette/Vaping Use: Never Used Second Hand Smoke Exposure: No Advance Directives Date on File: 11/01/23 service: No Current occupational status: retired Current occupation: right handed Cognitive needs: No Hearing needs: No Vision needs: No Review of Systems Const All systems reviewed & are unremarkable except as noted in HPI and below Denies chills, Denies fatigue, Denies fever(s), Denies weight gain and Denies weight loss ENT Denies dizziness Card Denies chest pain, Denies leg edema, Denies lightheadedness, Denies palpitations, Denies dyspnea on exertion, Denies orthopnea and Denies other Resp Denies cough and Denies dyspnea on exertion GI Denies hematochezia and Denies change in stool character Musc Denies abnormal gait, Denies muscle weakness, Denies numbness, Denies radiating pain into limb and Denies tingling Neuro Denies abnormal gait, Denies dizziness, Denies numbness and Denies tingling Endo Denies fatigue and Denies palpitations Physical Exam Vital Signs: Last Vital Signs Pulse 67 01/31/25 13:26 BP 124/60 01/31/25 13:26 BMI result Body Mass Index 28.1 Const General: cooperative, healthy appearing, comfortable and no acute distress Orientation/consciousness: patient oriented x3 Neck Neck: Yes normal visual inspection Resp Effort & Inspection: normal respiratory effort Auscultation: clear to auscultation bilaterally, no rales, no rhonchi and no wheezes Cardio Jugular venous distension: no JVD Rate: regular rate Rhythm: regular rhythm Heart sounds: S1 normal heart sound present, S2 normal heart sound present, no murmurs and no rubs Neuro General: patient oriented x3 Extrem General: Yes normal to inspection, No no pedal edema and No calf tenderness Psych Appearance: grossly normal Mental Status: mental status grossly normal Speech and movement: Normal speech and movement present Assessment & Plan Assessment & Plan (1) NSTEMI (non-ST elevated myocardial infarction): Code(s): I21.4 - Non-ST elevation (NSTEMI) myocardial infarction Category: Medical Plan: Recent [facility] admission with chest discomfort. His troponin was mildly elevated. His echo showed normal EF and no regional wall motion abnormalities. He was taken for cardiac catheterization which showed mid RCA 50% stenosis. His had 2 days prior. He was thought to have some mild takotsubo cardiomyopathy. No concerning symptoms since that time. Continue with med management for CAD with aspirin indefinitely. Continue rosuvastatin with ideal LDL goal less than 70. Continue amlodipine and lisinopril. Emergency care if ever needed for symptoms. Cardiology follow-up in 3-4 months, sooner if needed. (2) CAD (coronary artery disease): Comment: CTA of the coronary arteries on 11/16/2022 which showed nonobstructive coronary artery disease, moderate proximal LAD stenosis 50-60%, mid LAD 25%, 1st OM less than 50%. Cardiac cath [facility] 01/06/2025 moderate proximal RCA, minimal luminal irregularities in LAD and left circ circumflex, ECHO nl EF Code(s): I25.10 - Atherosclerotic heart disease of [place] coronary artery without angina pectoris Category: Medical Plan: As above. (3) S/P cardiac cath: Comment: 01/07/2025, left main normal, lad minimal irregularities, left circumflex normal, RCA mid 50% stenosis Code(s): Z98.890 - Other specified postprocedural states Category: Surgical Plan: Right radial catheterization site well healed (4) JULIEN (dyspnea on exertion): Comment: Dyspnea on exertion is mild, as long as he does not climb stairs or walk up [place]. Code(s): R06.00 - Dyspnea, unspecified Category: Medical Plan: History of COPD and chronic mild shortness of breath with exertion. Follows with pulmonology (5) COPD (chronic obstructive pulmonary disease): Comment: He does have chronic obstructive pulmonary disease for past many years, it is staying very stable. TX: Stiolto 2 inhalation ONCE A DAY and albuterol HFA 2 puffs Q 4-6 hours only p.r.n.. Code(s): J44.9 - Chronic obstructive pulmonary disease, unspecified Category: Medical Plan: Follows with pulmonology (6) Hypertension: Code(s): I10 - Essential (primary) hypertension Category: Medical Plan: His echo shows moderate LVH, severe septal asymmetric hypertrophy. BP today normal. The importance of ongoing very good blood pressure control reviewed with him. (7) LVH (left ventricular hypertrophy): Code(s): I51.7 - Cardiomegaly Category: Medical Plan: Moderate LVH on last echo (8) Asymmetric septal hypertrophy: Code(s): I42.2 - Other hypertrophic cardiomyopathy Category: Medical Plan: Severe asymmetric septal hypertrophy seen on last echo. No mention of outflow obstruction on echocardiogram. Blood pressure is well controlled. He has some shortness of breath which has been chronic. No signs of heart failure on exam. (9) Hospital discharge follow-up: Code(s): Z09 - Encounter for follow-up examination after completed treatment for conditions other than malignant neoplasm Category: Medical Plan: [facility] discharge summary reviewed Plan Time spent on chart review, documentation, interview and assessment Coding Level of Care Code Est Pt Level 4 (11405) Complex EM visit Add On G2211 Diagnoses NSTEMI (non-ST elevated myocardial infarction) I21.4 CAD (coronary artery disease) I25.10 S/P cardiac cath Z98.890 JULIEN (dyspnea on exertion) R06.00 COPD (chronic obstructive pulmonary disease) J44.9 Hypertension I10 LVH (left ventricular hypertrophy) I51.7 Asymmetric septal hypertrophy I42.2 Hospital discharge follow-up Z09 Time Spent (min) 36
== END 2025-01-31 14:08 | disposition home or self-care (01) ==
LOC: HO.HCS 13:18
PROVIDERS: PCP Internal Medicine; Visit Provider Nurse Practitioner Family
DX: I21.4 Non-ST elevation (NSTEMI) myocardial infarction (principal); I25.10 Atherosclerotic heart disease of native coronary artery without angina pectoris; Z98.890 Other specified postprocedural states; R06.00 Dyspnea, unspecified; J44.9 Chronic obstructive pulmonary disease, unspecified; I10 Essential (primary) hypertension; I51.7 Cardiomegaly; I42.2 Other hypertrophic cardiomyopathy; Z09 Encounter for follow-up examination after completed treatment for conditions other than malignant neoplasm
CPT/HCPCS: 99214; G2211

== ENCOUNTER → 2025-01-31 13:18 | Outpatient (BNVA) | payer MEDICARE, MEDICAID, SELFPAY | PROVIDERS: PCP Internal Medicine; Visit Provider Nurse Practitioner Family | DX: Z09 Encounter for follow-up examination after completed treatment for conditions other than malignant neoplasm (principal); I21.4 Non-ST elevation (NSTEMI) myocardial infarction; I25.10 Atherosclerotic heart disease of native coronary artery without angina pectoris; I10 Essential (primary) hypertension; I51.7 Cardiomegaly; I42.2 Other hypertrophic cardiomyopathy; R06.00 Dyspnea, unspecified; J44.9 Chronic obstructive pulmonary disease, unspecified; Z98.890 Other specified postprocedural states | CPT/HCPCS: 99212 ==

== ENCOUNTER → 2025-02-13 08:56 | Outpatient (BNVA) | payer MEDICARE, MEDICAID, SELFPAY | PROVIDERS: PCP Internal Medicine; Visit Provider Anesthesiology | DX: Z13.89 Encounter for screening for other disorder (principal) ==

== ENCOUNTER 2025-02-17 09:13 | Outpatient (AMB) | payer MEDICARE, MEDICAID, SELFPAY ==
[2025-02-17 09:33] VITALS: BP 120/68; PULSE 65; O2SAT 98; BMI 28.9
--- NOTE | 2025-02-17 09:33 | MHC.OFFVIS ---
Vital Signs 02/17/25 09:33 Height 6 ft Weight 213 lb 0.85 oz BMI 28.9 BP 120/68 Pulse 65 Pulse Source Pulse Oximeter Pulse Oximetry (%) 98 Oxygen Delivery Method Room Air Intake Visit Reasons: copd Intake Note: pt is here for follow up and states he is not doing that well, a lot of things Food Service Worker Required: No Allergies No Known Allergies [No Known Allergies*] Allergy (Verified 02/17/25 09:44) Medication List - Last Reconciled 02/17/25 by David Vizcaino MD acetaminophen (Tylenol) 650 mg PO Q6H PRN amlodipine 2.5 mg PO DAILY aspirin 81 mg PO DAILY azathioprine 50 mg PO DAILY glycopyrrolate-formoterol 9-4.8 mcg (Bevespi Aerosphere) 2 puffs inhalation BID levothyroxine 50 mcg PO DAILY@0600 lisinopril 20 mg PO DAILY multivitamin 1 tab PO DAILY nitroglycerin 0.4 mg sublingual Q5M PRN omeprazole 20 mg PO DAILY@0630 prednisone 5 mg PO DAILY pyridostigmine bromide 60 - 120 mg PO TID rosuvastatin 5 mg PO DAILY 90 days sertraline mg PO DAILY Ventolin HFA 90 mcg/actuation (albuterol sulfate) 2 puffs inhalation Q4-6H PRN NS Do you need a note to return to daycare/school/sports/work: No HPI HPI copd: Details: 75 years old gentleman, is a long-time patient of [facility], comes after 6 months for follow-up. He has COPD which remains under good control. Patient has myasthenia gravis being treated with azathioprine, Prostigmin, and also prednisone. Dose of prednisone is down to 5 mg a day. He lost his recently, and is quite sad. We had a good talk. Breathing long stable except that he tends to get short of breath if he walks around outdoors. Luckily he has had no acute infection or acute exacerbation in the last 6 months. 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) Back pain Arthritis JULIEN (dyspnea on exertion) Disc degeneration, lumbar Hyperglycemia Abdominal pain Pulmonary nodule Hyperlipidemia COPD (chronic obstructive pulmonary disease) Myasthenia gravis Scoliosis Spondylosis of lumbosacral spine with radiculopathy Degenerative disc disease, lumbar Hypothyroid Leg cramps Emphysema of lung Iron deficiency anemia Osteoarthritis Diastolic dysfunction Hypertension Incomplete emptying of bladder due to benign prostatic hyperplasia Nocturia associated with benign prostatic hyperplasia BPH loc w urin obs/LUTS Surgical History History of right inguinal hernia repair (~10/31/23) History of carpal tunnel surgery Hx of hand surgery History of left inguinal hernia repair S/P insertion of spinal cord stimulator History of colonoscopy History of lung surgery (~11/2020) History of total right hip arthroplasty (~02/2018) History of hydrocelectomy Hx of tonsillectomy Family History Father No problems noted. Mother No problems noted. Social History Household Members: None Household Members Other:: spouse has dementia Housing: House Are you a primary home health care coordinator to a significant other at home: Yes (-has dementia) Do you presently have visiting nurse or other home services: No Alcohol intake: never Patient Tobacco Use Status: Never used Tobacco e-Cigarette/Vaping Use: Never Used Second Hand Smoke Exposure: No Advance Directives Date on File: 11/01/23 service: No Current occupational status: retired Current occupation: right handed Cognitive needs: No Hearing needs: No Vision needs: No Review of Systems Const All systems reviewed & are unremarkable except as noted in HPI and below Eyes Reports no additional complaints ENT Reports no additional complaints Card Denies chest pain, Denies irregular heart rhythm and Reports dyspnea on exertion Resp Reports as per HPI and Reports dyspnea on exertion GI Reports no additional complaints Reports no additional complaints Musc Reports back pain (Mild) Skin/Breast Reports system reviewed and no additional complaints, except as documented Psych Reports no additional complaints Endo Reports no additional complaints De/Lymph Reports no additional complaints Physical Exam Vital Signs: Last Vital Signs Pulse 65 02/17/25 09:33 BP 120/68 02/17/25 09:33 Pulse Ox 98 02/17/25 09:33 Oxygen Delivery Method Room Air 02/17/25 09:33 BMI result Body Mass Index 28.9 Const General: comfortable, no acute distress, alert and awake Orientation/consciousness: patient oriented x3 HEENT Head: Yes normal to inspection General nose exam: No nasal polyps present, No nasal discharge present and Other nasal findings present ( mild nasal congestion is noted) Face and sinus: Yes sinuses nontender Mouth: oropharynx normal Throat: Yes posterior oropharynx normal Eyes General: appearance normal, both eyes and all related structures Neck Neck: Yes normal visual inspection, Yes no lymphadenopathy, Yes trachea midline and Yes no JVD Thyroid: Thyroid normal Chest Chest palpation & inspection: normal inspection of the chest, normal palpation of entire chest wall and no tenderness Resp Other: Percussion note resonant, breath sounds are slightly diminished over the basilar areas. No wheezes ,CREPS or rhonchi are heard. Cardio Palpation: PMI not normal (Not palpable) Rate: regular rate Rhythm: regular rhythm Heart sounds: no gallops and no murmurs GI Palpation (GI): Soft to palpation, nontender, No hepatosplenomegaly present, no masses and Other GI palpation findings present (Abdomen is moderately obese) Auscultation: normal bowel sounds Back/Spine/Pelvis Thoracic/Lumbar Spine: thoracic and lumbar spine normal to inspection Skin General skin exam: no rashes or lesions noted Neuro General: patient oriented x3 and no focal motor deficits Cranial nerves: Yes CN's II-XII intact bilaterally Extrem General: Yes normal to inspection, Yes no clubbing, cyanosis or edema and Yes no calf tenderness Psych Appearance: grossly normal and well kempt Speech and movement: Normal speech and movement present Assessment & Plan Assessment & Plan (1) COPD (chronic obstructive pulmonary disease): Comment: HE HAS MODERATELY SEVERE CHRONIC OBSTRUCTIVE PULMONARY DISORDER. WITH HIS CURRENT MEDICAL REGIMEN HIS PULMONARY STATUS IS STAYING STABLE. COMPLAINS OF INCREASED SHORTNESS OF BREATH AND HAS TO STOP AFTER WALKING ABOUT HALF A BLOCK. HOWEVER HE REMAINS ACTIVE AND DOES LOT OF WALKING OUTDOORS. Code(s): J44.9 - Chronic obstructive pulmonary disease, unspecified Category: Medical Plan: CONTINUE TO USE BEVESPI 2 PUFFS B.I.D. VENTOLIN HFA 2 PUFFS Q 6 HOURS P.R.N. PREDNISONE 5 MG A DAY WHICH IS FOR MYASTHENIA GRAVIS, ALSO CONTRIBUTES TO KEEP HIS LUNGS CLEAR. ADVISED TO KEEP ON DOING DEEP BREATHING EXERCISES 2 OR 3 TIMES A DAY. (2) Allergic rhinitis: Comment: He presents with symptoms of nasal congestion postnasal drip and cough. at nighttime This seems to be secondary to allergic rhinitis. in December 2022, EIOSINOPHIL count was 0.6 ( 600 ) Code(s): J30.9 - Allergic rhinitis, unspecified Category: Medical Plan: DOES NOT NEED ANY ACTIVE MEDICAL TREATMENT FOR THIS PROBLEM Coding Level of Care Code Est Pt Level 3 (80431) Diagnoses COPD (chronic obstructive pulmonary disease) J44.9 Allergic rhinitis J30.9
--- OUTSIDE RECORDS SUMMARY | 2025-02-17 10:10 | XMS_ITS | Clinical Summary ---
Author Organization [facility] Address [id number] [place] [id number] Care Team Providers Care Jd Edwards Consultant Name Role Phone Gifty Frankel MD Primary Care Provider [phone] Social History Tobacco Use Types Packs/Day Years [...] Influencers of Health Screening 10/09/2022 COVID-19 Vaccine (2023-2 5 season) 2024 Influenza Vaccine (Season Ended) 2025 RSV Immunization Adult Patie nts (1 - 1-dose 75+ series) 2026 HIB [...] age to complete this topic Meningococcal B Vaccine Aged Out No l onger eligible based on patient's age to complete this topic RSV Immunization Patients Un kaleb 20 months Aged Out No longer eligible b ased on patient's age to complete this topic Varicella Vaccines Aged Out No longer eligible based on patient's age to complete this topic Care Teams Jd Edwards Consultant Relationship Specialty Start Date End Date Gifty Frankel MD PCP - General Internal Medicine 01/25/21
== END 2025-02-17 10:00 | disposition home or self-care (01) ==
LOC: HO.HPS 09:14
PROVIDERS: PCP Internal Medicine; Visit Provider Internal Medicine
DX: J44.9 Chronic obstructive pulmonary disease, unspecified (principal); J30.9 Allergic rhinitis, unspecified
CPT/HCPCS: 99213

== ENCOUNTER → 2025-02-17 09:13 | Outpatient (BNVA) | payer MEDICARE, MEDICAID, SELFPAY | PROVIDERS: PCP Internal Medicine; Visit Provider Internal Medicine | DX: J44.9 Chronic obstructive pulmonary disease, unspecified (principal); J30.9 Allergic rhinitis, unspecified | CPT/HCPCS: 99212 ==

== ENCOUNTER 2025-03-13 08:16 | Outpatient (AMB) | payer MEDICARE, MEDICAID, SELFPAY ==
--- NOTE | 2025-03-13 08:36 | AM.OFFWIN_ITS ---
Intake Vital Signs 3 03/13/25 08:44 Weight 205 lb BP 132/80 Pulse 68 Pulse Source Pulse Oximeter Temp 98.2 F Temp Source Oral Pulse Oximetry (%) 97 Oxygen Delivery Method Room Air Intake Visit Reasons: EP-rt under arm tick bite Intake Note: Patient here for tick bite that he found yesterday under his right arm. Patient Tobacco Use Status: Never used Tobacco Allergies No Known Allergies [No Known Allergies*] Allergy (Verified 03/13/25 08:43) Do you need a note to return to daycare/school/sports/work: No HPI HPI Comments 2 History of Present Illness0 Details 75 y/o Male patient who presents to the [facility] in clinic with c/o Tick Bite under right arm. He usually works out-doors, and yesterday he noticed a tick, removed it. He does have a small rash under right arm. 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) Back pain Arthritis JULIEN (dyspnea on exertion) Disc degeneration, lumbar Hyperglycemia Abdominal pain Pulmonary nodule Hyperlipidemia COPD (chronic obstructive pulmonary disease) Myasthenia gravis Scoliosis Spondylosis of lumbosacral spine with radiculopathy Degenerative disc disease, lumbar Hypothyroid Leg cramps Emphysema of lung Iron deficiency anemia Osteoarthritis Diastolic dysfunction Hypertension Incomplete emptying of bladder due to benign prostatic hyperplasia Nocturia associated with benign prostatic hyperplasia BPH loc w urin obs/LUTS Surgical History History of right inguinal hernia repair (~10/31/23) History of carpal tunnel surgery Hx of hand surgery History of left inguinal hernia repair S/P insertion of spinal cord stimulator History of colonoscopy History of lung surgery (~11/2020) History of total right hip arthroplasty (~02/2018) History of hydrocelectomy Hx of tonsillectomy Family History Father No problems noted. Mother No problems noted. Social History Household Members: None Household Members Other:: spouse has dementia Housing: House Are you a primary acute care nurse to a significant other at home: Yes (-has dementia) Do you presently have visiting nurse or other home services: No Alcohol intake: never Patient Tobacco Use Status: Never used Tobacco e-Cigarette/Vaping Use: Never Used Second Hand Smoke Exposure: No Advance Directives Date on File: 11/01/23 service: No Current occupational status: retired Current occupation: right handed Cognitive needs: No Hearing needs: No Vision needs: No Review of Systems Const All systems reviewed & are unremarkable except as noted in HPI and below Physical Exam Vital Signs: Last Vital Signs Temp 98.2 F 03/13/25 08:44 Pulse 68 03/13/25 08:44 BP 132/80 03/13/25 08:44 Pulse Ox 97 03/13/25 08:44 Oxygen Delivery Method Room Air 03/13/25 08:44 Const General: no acute distress Nutritional Appearance: well nourished Orientation/consciousness: patient oriented x3 Chest Chest/axillae images: 2 1. Small erythematous Rash right under Arm. Resp Effort & Inspection: normal respiratory effort Auscultation: clear to auscultation bilaterally, no crackles, no rales, no rhonchi and no wheezes Cardio Heart sounds: S1 normal heart sound present and S2 normal heart sound present Neuro General: patient oriented x3 Psych Speech and movement: Normal speech and movement present Assessment & Plan Assessment & Plan (1) Tick bite: Code(s): W57.XXXA - Bitten or stung by nonvenomous insect and other nonvenomous arthropods, initial encounter Qualifiers: Encounter type: initial encounter Laterality: right Site of tick bite: upper arm Qualified Code(s): S40.861A - Insect bite (nonvenomous) of right upper arm, initial encounter; W57.XXXA - Bitten or stung by nonvenomous insect and other nonvenomous arthropods, initial encounter Plan: Ordered Doxy one time dose. Medications: New 2 doxycycline hyclate 200 mg (2 x 100 mg) PO ONCE 2 caps 0RF S40.861A - Insect bite (nonvenomous) of right upper arm, initial encounter, W57.XXXA - Bitten or stung by nonvenomous insect and other nonvenomous arthropods, initial encounter Coding Level of Care Code Est Pt Level 4 (83000) Diagnoses Tick bite of right upper arm, initial encounter S40.861A; W57.XXXA Encounter type: initial encounter Laterality: right Site of tick bite: upper arm Time Spent (min) 20
[2025-03-13 08:44] VITALS: BP 132/80; PULSE 68; TEMP 36.8; O2SAT 97
== END 2025-03-13 09:27 | disposition home or self-care (01) ==
PROVIDERS: PCP Internal Medicine; Visit Provider Nurse Practitioner Family
DX: S40.861A Insect bite (nonvenomous) of right upper arm, initial encounter (principal); W57.XXXA Bitten or stung by nonvenomous insect and other nonvenomous arthropods, initial encounter

== ENCOUNTER → 2025-03-13 08:16 | Outpatient (BNVA) | payer MEDICARE, MEDICAID, SELFPAY | PROVIDERS: PCP Internal Medicine; Visit Provider Nurse Practitioner Family | DX: S40.861A Insect bite (nonvenomous) of right upper arm, initial encounter (principal); W57.XXXA Bitten or stung by nonvenomous insect and other nonvenomous arthropods, initial encounter | CPT/HCPCS: 99212 ==

== ENCOUNTER 2025-04-24 13:08 | Outpatient (AMB) | payer MEDICARE, MEDICAID, SELFPAY ==
--- NOTE | 2025-04-24 13:19 | A.OFFVIS_ITS ---
Vital Signs 04/24/25 13:21 Height 6 ft Weight 200 lb 9.93 oz BMI 27.2 BP 120/74 Blood Pressure Location Lt brachial Position Sitting Pulse 56 Intake Visit Reasons: 3-4m follow up Intake Note: 3-4 month follow-up has some chest pressure at times Allergies No Known Allergies (No Known Allergies*) Allergy (Verified 03/13/25 08:43) Medication List - Last Reconciled 04/24/25 by EVA Rolle acetaminophen (Tylenol) 650 mg PO Q6H PRN amlodipine 2.5 mg PO DAILY aspirin 81 mg PO DAILY azathioprine 50 mg PO DAILY doxycycline hyclate 200 mg (2 x 100 mg) PO ONCE glycopyrrolate-formoterol 9-4.8 mcg (Bevespi Aerosphere) 2 puffs inhalation BID levothyroxine 50 mcg PO DAILY@0600 lisinopril 20 mg PO DAILY multivitamin 1 tab PO DAILY nitroglycerin 0.4 mg sublingual Q5M PRN omeprazole 20 mg PO DAILY@0630 pyridostigmine bromide 60 - 120 mg PO TID rosuvastatin 5 mg PO DAILY 90 days sertraline 100 mg PO DAILY Ventolin HFA 90 mcg/actuation (albuterol sulfate) 2 puffs inhalation Q4-6H PRN NS HPI HPI 3-4m follow up: Details: Olegario is a 75 yo male with PMH of HTN, HLD, LVH, COPD, chronic reports of shortness of breath, syncope, nonobstructive coronary artery disease who recently presented to [facility] with chest discomfort. His troponins were elevated and he underwent cardiac catheterization showing nonobstructive coronary disease. Today he reports that he has been doing well since that time. He has not had recurrent chest discomfort. No chest discomfort brought on by exertion. He has his usual shortness of breath with exertion which is unchanged. No PND, orthopnea or edema. He does have some lightheadedness at times with quick position changes and bending. No presyncope, syncope, falls. Compliant with meds. Is still grieving over the loss of his . He is trying to keep busy working in his garden. He is having increased symptoms from his myasthenia gravis with weakness in his right leg. He is currently ambulating with a cane. 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) Back pain Arthritis JULIEN (dyspnea on exertion) Disc degeneration, lumbar Hyperglycemia Abdominal pain Pulmonary nodule Hyperlipidemia COPD (chronic obstructive pulmonary disease) Myasthenia gravis Scoliosis Spondylosis of lumbosacral spine with radiculopathy Degenerative disc disease, lumbar Hypothyroid Leg cramps Emphysema of lung Iron deficiency anemia Osteoarthritis Diastolic dysfunction Hypertension Incomplete emptying of bladder due to benign prostatic hyperplasia Nocturia associated with benign prostatic hyperplasia BPH loc w urin obs/LUTS Surgical History History of right inguinal hernia repair (~10/31/23) History of carpal tunnel surgery Hx of hand surgery History of left inguinal hernia repair S/P insertion of spinal cord stimulator History of colonoscopy History of lung surgery (~11/2020) History of total right hip arthroplasty (~02/2018) History of hydrocelectomy Hx of tonsillectomy Family History Father No problems noted. Mother No problems noted. Social History Household Members: None Household Members Other:: spouse has dementia Housing: House Are you a primary healthcare consulting manager to a significant other at home: Yes (-has dementia) Do you presently have visiting nurse or other home services: No Alcohol intake: never Patient Tobacco Use Status: Never used Tobacco e-Cigarette/Vaping Use: Never Used Second Hand Smoke Exposure: No Advance Directives Date on File: 11/01/23 service: No Current occupational status: retired Current occupation: right handed Cognitive needs: No Hearing needs: No Vision needs: No Review of Systems Const All systems reviewed & are unremarkable except as noted in HPI and below Denies chills, Denies fatigue, Denies fever(s), Denies frequent falls, Denies weakness, Denies weight gain and Denies weight loss ENT Denies dizziness Card Denies chest pain, Denies leg edema, Denies lightheadedness, Denies palpitations, Denies dyspnea, Reports dyspnea on exertion (with exertional activities/ prolonged walking), Denies orthopnea and Denies other (loss of consciousness) Resp Denies cough, Denies dyspnea and Reports dyspnea on exertion (with exertional activities/ prolonged walking) GI Denies hematochezia and Denies change in stool character Musc Denies abnormal gait, Denies muscle weakness, Reports numbness, Denies radiating pain into limb and Denies tingling Neuro Details: weakness in right leg from myasthenia gravis. Reports Neuro-related abnormal movements, Denies abnormal gait, Denies dizziness, Denies frequent falls, Reports numbness, Denies tingling and Denies weakness Endo Denies fatigue and Denies palpitations Physical Exam Vital Signs: Last Vital Signs Pulse 56 04/24/25 13:21 BP 120/74 04/24/25 13:21 BMI result Body Mass Index 27.2 Const General: cooperative, healthy appearing, comfortable and no acute distress Orientation/consciousness: patient oriented x3 Neck Neck: Yes normal visual inspection Resp Effort & Inspection: normal respiratory effort Auscultation: clear to auscultation bilaterally, no rales, no rhonchi and no wheezes Cardio Jugular venous distension: no JVD Rate: regular rate Rhythm: regular rhythm Heart sounds: S1 normal heart sound present, S2 normal heart sound present, no murmurs and no rubs Neuro General: patient oriented x3 Extrem General: Yes normal to inspection, No no pedal edema and No calf tenderness Psych Appearance: grossly normal Mental Status: mental status grossly normal Speech and movement: Normal speech and movement present Assessment & Plan Assessment & Plan (1) NSTEMI (non-ST elevated myocardial infarction): Code(s): I21.4 - Non-ST elevation (NSTEMI) myocardial infarction Category: Medical Plan: [facility] admission 01/2025 with chest discomfort, elevated troponin. Echo showed normal EF and no regional wall motion abnormalities. Cardiac catheterization which showed mid RCA 50% stenosis. His had 2 days prior. He was thought to have some mild takotsubo cardiomyopathy. No concerning symptoms since that time. Continue with med management for CAD with aspirin indefinitely. Continue rosuvastatin with ideal LDL goal less than 70. Continue amlodipine and lisinopril. Emergency care if ever needed for symptoms. Cardiology follow-up in 4 months, sooner if needed. (2) CAD (coronary artery disease): Comment: CTA of the coronary arteries on 11/16/2022 which showed nonobstructive coronary artery disease, moderate proximal LAD stenosis 50-60%, mid LAD 25%, 1st OM less than 50%. Cardiac cath [facility] 01/06/2025 moderate proximal RCA, minimal luminal irregularities in LAD and left circ circumflex, ECHO nl EF Code(s): I25.10 - Atherosclerotic heart disease of campo coronary artery without angina pectoris Category: Medical Plan: As above. (3) S/P cardiac cath: Comment: 01/07/2025, left main normal, lad minimal irregularities, left circumflex normal, RCA mid 50% stenosis Code(s): Z98.890 - Other specified postprocedural states Category: Surgical (4) JULIEN (dyspnea on exertion): Comment: Dyspnea on exertion is mild, as long as he does not climb stairs or walk up [place]. Code(s): R06.00 - Dyspnea, unspecified Category: Medical Plan: History of COPD and chronic mild shortness of breath with exertion which has remained stable. Follows with pulmonology (5) COPD (chronic obstructive pulmonary disease): Comment: He does have chronic obstructive pulmonary disease for past many years, it is staying very stable. TX: Stiolto 2 inhalation ONCE A DAY and albuterol HFA 2 puffs Q 4-6 hours only p.r.n.. Code(s): J44.9 - Chronic obstructive pulmonary disease, unspecified Category: Medical Plan: Follows with pulmonology (6) Hypertension: Code(s): I10 - Essential (primary) hypertension Category: Medical Plan: His echo 01/06/25 shows moderate LVH, severe septal asymmetric hypertrophy. BP today normal. The importance of ongoing very good blood pressure control reviewed with him. (7) LVH (left ventricular hypertrophy): Code(s): I51.7 - Cardiomegaly Category: Medical Plan: Moderate LVH on last echo (8) Asymmetric septal hypertrophy: Code(s): I42.2 - Other hypertrophic cardiomyopathy Category: Medical Plan: Severe asymmetric septal hypertrophy seen on last echo. No mention of outflow obstruction on echocardiogram. Blood pressure is well controlled. He has some shortness of breath which has been chronic. No signs of heart failure on exam. Plan I discussed with the patient that his nonobstructive coronary artery disease is stable with current medication management, including aspirin and rosuvastatin. We reviewed his blood pressure control, which is excellent at 120/74 mmHg, and agreed to continue the current regimen. I advised increasing physical activity may improve shortness of breath, which may be due to deconditioning and well as COPD. I instructed him to monitor symptoms and consult Dr. Vizcaino if shortness of breath worsens. We discussed managing dizziness by standing slowly and using a cane to prevent falls. Patient Instructions: - Continue current medications for coronary artery disease and hypertension. - Increase physical activity to help with shortness of breath. - Monitor symptoms and consult Dr. Vizcaino if shortness of breath worsens. - Stand up slowly to manage dizziness and use a cane if needed to prevent falls. Patient was informed and verbally consented to the use of an ambient scribe for clinic note documentation during this visit. Visit time spent on chart review, interview, assessment, orders, documentation. Coding Level of Care Code Est Pt Level 4 (54681) Complex EM visit Add On G2211 Diagnoses NSTEMI (non-ST elevated myocardial infarction) I21.4 CAD (coronary artery disease) I25.10 S/P cardiac cath Z98.890 JULIEN (dyspnea on exertion) R06.00 COPD (chronic obstructive pulmonary disease) J44.9 Hypertension I10 LVH (left ventricular hypertrophy) I51.7 Asymmetric septal hypertrophy I42.2 Time Spent (min) 30
[2025-04-24 13:21] VITALS: BP 120/74; PULSE 56; BMI 27.2
--- OUTSIDE RECORDS SUMMARY | 2025-04-24 14:18 | XMS_ITS | Clinical Summary ---
Author Organization [facility] Address [id number] [place] [id number] Care Team Providers Care Conversion Man Name Role Phone Gifty Frankel MD Primary Care Provider [phone] Social History Tobacco Use Types Packs/Day Years [...] age to complete this topic Care Teams Conversion Man Relationship Specialty Start Date End Date Gifty Frankel MD PCP - General Internal Medicine 01/25/21
== END 2025-04-24 14:06 | disposition home or self-care (01) ==
LOC: HO.HCS 13:08
PROVIDERS: PCP Internal Medicine; Visit Provider Nurse Practitioner Family
DX: I21.4 Non-ST elevation (NSTEMI) myocardial infarction (principal); I25.10 Atherosclerotic heart disease of native coronary artery without angina pectoris; Z98.890 Other specified postprocedural states; R06.00 Dyspnea, unspecified; J44.9 Chronic obstructive pulmonary disease, unspecified; I10 Essential (primary) hypertension; I51.7 Cardiomegaly; I42.2 Other hypertrophic cardiomyopathy
CPT/HCPCS: 99214; G2211

== ENCOUNTER → 2025-04-24 13:08 | Outpatient (BNVA) | payer MEDICARE, MEDICAID, SELFPAY | PROVIDERS: PCP Internal Medicine; Visit Provider Nurse Practitioner Family | DX: I25.2 Old myocardial infarction (principal); I25.10 Atherosclerotic heart disease of native coronary artery without angina pectoris; I10 Essential (primary) hypertension; I51.7 Cardiomegaly; I42.2 Other hypertrophic cardiomyopathy; J44.9 Chronic obstructive pulmonary disease, unspecified; R06.00 Dyspnea, unspecified; Z98.890 Other specified postprocedural states | CPT/HCPCS: 99212 ==

== ENCOUNTER 2025-05-23 08:14 | Outpatient (REF) | payer MEDICARE, MEDICAID, SELFPAY ==
[2025-05-23 10:13] LABS: MANUAL DIFF FLAG NO
[2025-05-23 10:21] LABS: Hematocrit 39.3 % (42.0-52.0); Hemoglobin 12.7 g/dl (14.0-18.0); Imm Gran Abs Auto 0.04 X10*3/uL (0.00-0.03); Imm Gran Pct Auto 0.5 % (0.0-0.4); Lymphocytes Absolute Auto 0.9 X10*3/uL (1.2-4.9); Mean Corpuscular HGB Conc 32.3 g/dl (31.0-36.0); Mean Corpuscular Hemoglobin 28.3 pg (27.0-33.0); Mean Corpuscular Volume 87.7 fL (80.0-98.0); NRBC Abs Auto 0.000 X10*3/uL (0.0-0.012); NRBC Pct Auto 0.0 /100WBC (0.0-0.2); Platelet Count 205 X10*3/uL (160-400); Red Blood Count 4.48 X10*6/uL (4.60-5.80); White Blood Count 7.8 X10*3/uL (4.8-10.8)
[2025-05-23 10:34] LABS: Hemoglobin A1C 128.6213 umol/L; Total Hemoglobin (HGBA1C) 3286.1386 umol/L
[2025-05-23 10:58] LABS: Prostate Specific Antigen 2.81 ng/mL (<0.05-4.0)
[2025-05-23 11:03] LABS: Alanine Aminotransferase 45 U/L (0-40); Albumin Level 4.0 g/dL (3.5-5.0); Alkaline Phosphatase 86 U/L (39-117); Anion Gap 11 (12-20); Aspartate Amino Transferase 48 U/L (5-37); Blood Urea Nitrogen 21 mg/dL (9-16); Calcium 8.7 mg/dL (8.4-10.2); Carbon Dioxide 23 mmol/L (22-29); Chloride 109 mmol/L (96-108); Cholesterol 85 mg/dL (<200); Estimated Glomerular Filt Rate > 60; HDL Cholesterol 38 mg/dL (>40); Potassium 4.3 mmol/L (3.3-5.1); Sodium 139 mmol/L (135-145); Total Protein 6.7 g/dL (6.5-8.0); Triglycerides 58 mg/dL (<150)
[2025-05-23 11:43] LABS: Free T4 (Free Thyroxine) 0.94 ng/dL (0.71-1.85)
== END 2025-05-23 08:15 | disposition home or self-care (01) ==
LOC: HO.HMGCLDS 08:14
PROVIDERS: PCP Internal Medicine; Visit Provider Urology
DX: N32.81 Overactive bladder (principal); Z12.5 Encounter for screening for malignant neoplasm of prostate; I25.10 Atherosclerotic heart disease of native coronary artery without angina pectoris; E78.5 Hyperlipidemia, unspecified; E03.9 Hypothyroidism, unspecified; R73.9 Hyperglycemia, unspecified
CPT/HCPCS: 36415; 80053; 80061; 83036; 84153; 84439; 84443; 85025

== ENCOUNTER 2025-06-09 08:33 | Outpatient (AMB) | payer MEDICARE, MEDICAID, SELFPAY ==
--- NOTE | 2025-06-09 08:34 | MHC.OFFVIS ---
Intake Visit Reasons: 3m/ MG Allergies No Known Allergies (No Known Allergies*) Allergy (Verified 03/13/25 08:43) Medication List - Last Reconciled 06/09/25 by Eliza Saez MD acetaminophen (Tylenol) 650 mg PO Q6H PRN amlodipine 2.5 mg PO DAILY aspirin 81 mg PO DAILY azathioprine 50 mg PO DAILY doxycycline hyclate 200 mg (2 x 100 mg) PO ONCE glycopyrrolate-formoterol 9-4.8 mcg (Bevespi Aerosphere) 2 puffs inhalation BID levothyroxine 50 mcg PO DAILY@0600 lisinopril 20 mg PO DAILY multivitamin 1 tab PO DAILY nitroglycerin 0.4 mg sublingual Q5M PRN omeprazole 20 mg PO DAILY@0630 pyridostigmine bromide 60 - 120 mg PO TID rosuvastatin 5 mg PO DAILY 90 days sertraline 100 mg PO DAILY Ventolin HFA 90 mcg/actuation (albuterol sulfate) 2 puffs inhalation Q4-6H PRN NS HPI Comments Details: 75 y/o man with HTN, HLD, CAD, LBP treated with a spinal cord stiumulator, and antibody positive Myasthenia Gravis that presented with double vision in 2019. He was getting worse . Strength was getting worse. Breathing is ok. Swallowing is ok. He is walking with a walker but legs are getting weak. 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) Back pain Arthritis JULIEN (dyspnea on exertion) Disc degeneration, lumbar Hyperglycemia Abdominal pain Pulmonary nodule Hyperlipidemia COPD (chronic obstructive pulmonary disease) Myasthenia gravis Scoliosis Spondylosis of lumbosacral spine with radiculopathy Degenerative disc disease, lumbar Hypothyroid Leg cramps Emphysema of lung Iron deficiency anemia Osteoarthritis Diastolic dysfunction Hypertension Incomplete emptying of bladder due to benign prostatic hyperplasia Nocturia associated with benign prostatic hyperplasia BPH loc w urin obs/LUTS Surgical History History of right inguinal hernia repair (~10/31/23) History of carpal tunnel surgery Hx of hand surgery History of left inguinal hernia repair S/P insertion of spinal cord stimulator History of colonoscopy History of lung surgery (~11/2020) History of total right hip arthroplasty (~02/2018) History of hydrocelectomy Hx of tonsillectomy Family History Father No problems noted. Mother No problems noted. Social History Household Members: None Household Members Other:: spouse has dementia Housing: House Are you a primary manager medicare marketing to a significant other at home: Yes (-has dementia) Do you presently have visiting nurse or other home services: No Alcohol intake: never Patient Tobacco Use Status: Never used Tobacco e-Cigarette/Vaping Use: Never Used Second Hand Smoke Exposure: No Advance Directives Date on File: 11/01/23 service: No Current occupational status: retired Current occupation: right handed Cognitive needs: No Hearing needs: No Vision needs: No Review of Systems Const Details: Difficulty with generalized strength and leg weakness. Physical Exam Neuro Other: Mental Status: Alert and oriented to person, place, and time. Normal attention. Normal spontaneous speech, fluency, and comprehension. Cranial Nerves: CN II: Visual bedolla full to confrontation, visual acuity intact. CN III, IV, : Pupils equal, round, reactive to light and accommodation. Extraocular movements are normal. CN V: Facial sensation is normal. CN VII: Facial movements symmetrical. CN VIII: Hearing intact to bedside conversation is normal. CN IX, X: Palate elevates symmetrically. CN XI: Shoulder shrug and head turn symmetrical. CN XII: Tongue midline without atrophy or fasciculations. Mild right-sided ptosis. Slow cautious gait with a cane with stooped posture. Extrapyramidal: Full facial expressions and blinking. No rigidity. Movements are appropriate with no tremor or abnormality. Speech: Normal; no dysarthria or tremor. He counted up to 15 in one breath. Assessment & Plan Assessment & Plan (1) Myasthenia gravis: Comment: ACR Ab titre at [facility] in Jun 2020 and 2023: High titres [facility] P/Q at [facility] in 2019: WNL NCV/EMG RTUE Severe right median neuropathy across the Carpal tunnel. 12/07/21. CT chest WWO at [facility] in Sep 2020: R lower lumg mass with adenopathy NCV/EMG LE 06/17/20 Moderate to severe axonal sensory and motor peripheral neuropathy. CT brain WO at [facility] In 2017 and 2019: mild cerebellar and cerebral atrophy MRI brain WO at [facility] in 2018 and 2019: atrophy and mild MVD Code(s): G70.00 - Myasthenia gravis without (acute) exacerbation Category: Medical (2) Depression: Code(s): F32.A - Depression, unspecified Category: Medical Qualifiers: Depression Type: persistent depressive disorder Qualified Code(s): F34.1 - Dysthymic disorder Plan Impression: 1. Myasthenia gravis not fully control 2. Depression Recommendations: 1. Continue prednisone 5 mg a day 2. Pyridostigmine 60 mg 1-2, 2 to 3 times a day 3. Azathioprine 50 mg daily 4. IVIG 400 milligram/kg for 5 days Orders: Referrals Infusion Center Notification G - Myasthenia gravis without (acute) exacerbation Medications: New azathioprine 50 mg PO DAILY 90 tabs 0RF immun glob [id number] 0-50 10 gram 40 grams IV DAILY Myasthenia gravis 5 days G70. - Myasthenia gravis without (acute) exacerbation pyridostigmine bromide 60 - 120 mg (1 - 2 x 60 mg) PO TID 240 tabs 0RF sertraline 100 mg PO DAILY 90 tabs 0RF prednisone 5 mg PO DAILY 90 tabs 0RF Coding Level of Care Code Est Pt Level 5 (86085) Diagnoses Myasthenia gravis G70. Persistent depressive disorder F34.1 Depression Type: persistent depressive disorder
--- OUTSIDE RECORDS SUMMARY | 2025-06-09 08:54 | XMS_ITS | Clinical Summary ---
Author Organization [facility] Address [id number] [place] [id number] Care Team Providers Care Learning Disabilities Specialist Name Role Phone Gifty Frankel MD Primary Care Provider [phone] Social History Tobacco Use Types Packs/Day Years [...] 2001 Zoster Vaccines (1 of 2) 2001 COVID-19 Vaccine ( - 2023-2 5 season) 2024 Depression Screening 11/06/2024 Influenza Vaccine (#1) 2025 RSV Immunization Adult Patie nts (1 [...] age to complete this topic Care Teams Learning Disabilities Specialist Relationship Specialty Start Date End Date Gifty Frankel MD PCP - General Internal Medicine 01/25/21
== END 2025-06-09 08:55 | disposition home or self-care (01) ==
LOC: HO.HSM 08:33
PROVIDERS: PCP Internal Medicine; Visit Provider Psychiatry & Neurology Neurology
DX: G70.00 Myasthenia gravis without (acute) exacerbation (principal); F34.1 Dysthymic disorder
CPT/HCPCS: 99214

== ENCOUNTER → 2025-06-09 08:33 | Outpatient (BNVA) | payer MEDICARE, MEDICAID, SELFPAY | PROVIDERS: PCP Internal Medicine; Visit Provider Psychiatry & Neurology Neurology | DX: G70.00 Myasthenia gravis without (acute) exacerbation (principal); F34.1 Dysthymic disorder | CPT/HCPCS: 99212 ==

== ENCOUNTER 2025-06-12 10:28 | Outpatient (AMB) | payer MEDICARE, MEDICAID, SELFPAY ==
--- NOTE | 2025-06-12 10:41 | A.OFFVIS_ITS ---
Intake Visit Reasons: 6m/PSA/PVR Intake Note: Patient is present for [facility] Urology Medication:AMITRIPTYLINE Blood Thinner:ASPIRIN PSA 05/23/25: 2.81 PVR: 31MLS Cash Management Coordinator Required: No Accompanied by: Self / Same As Patient Allergies No Known Allergies (No Known Allergies*) Allergy (Verified 06/12/25 10:43) HPI Comments Details: Olegario is a very pleasant male. He is a patient of Dr. Suazo. He is seen for the following urologic conditions - lower urinary tract symptoms - renal cyst Six-month follow-up on amitriptyline and gabapentin for nocturia UA normal Bladder emptying PSA 2.8 Has been feeling weak and losing muscle mass secondary to myasthenia gravis Check testosterone He mentioned his with progressive Lewy body dementia is now at a longterm Has no children Discussed possible InterStim Has stimulator for sciatica Underwent Botox 05/29 Does not think this was beneficial Baseline nocturia 4-5 Overactive bladder - azathioprine contributory Cystoscopy 02/25 trabeculation with reduced stability open bladder neck Failed trial of tolterodine and oxybutynin, toviaz secondary to dry mouth and d ry eyes Nocturia stabilized with imipramine over still getting up 5 times at night Current therapy amitriptyline with gabapentin Lower urinary tract symptoms Current encounter for the follow-up of lower urinary tract symptoms - good response with finasteride daily for effective stream and emptying Current treatment includes medication - none Prostate Symptom Score 8/18 , Moderate (9-19), Bother 3. Symptoms include 8/18 , incomplete emptying, weak stream, nocturia (>2), and are progressing. Results from testing include cystoscopy high riding bladder neck (median bar) 07/24, 01/25 median bar with mild trabeculation renal/bladder us Yes date 07/04/2018 PVR 35 prostate size 45 PSA 02/22 1.2, 11/26 0.5 Prostate volume 30-50gm. 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) Back pain Arthritis JULIEN (dyspnea on exertion) Disc degeneration, lumbar Hyperglycemia Abdominal pain Pulmonary nodule Hyperlipidemia COPD (chronic obstructive pulmonary disease) Myasthenia gravis Scoliosis Spondylosis of lumbosacral spine with radiculopathy Degenerative disc disease, lumbar Hypothyroid Leg cramps Emphysema of lung Iron deficiency anemia Osteoarthritis Diastolic dysfunction Hypertension Incomplete emptying of bladder due to benign prostatic hyperplasia Nocturia associated with benign prostatic hyperplasia BPH loc w urin obs/LUTS Surgical History History of right inguinal hernia repair (~10/31/23) History of carpal tunnel surgery Hx of hand surgery History of left inguinal hernia repair S/P insertion of spinal cord stimulator History of colonoscopy History of lung surgery (~11/2020) History of total right hip arthroplasty (~02/2018) History of hydrocelectomy Hx of tonsillectomy Family History Father No problems noted. Mother No problems noted. Social History Household Members: None Household Members Other:: spouse has dementia Housing: House Are you a primary director of patient care to a significant other at home: Yes (-has dementia) Do you presently have visiting nurse or other home services: No Alcohol intake: never Patient Tobacco Use Status: Never used Tobacco e-Cigarette/Vaping Use: Never Used Second Hand Smoke Exposure: No Advance Directives Date on File: 11/01/23 service: No Current occupational status: retired Current occupation: right handed Cognitive needs: No Hearing needs: No Vision needs: No Review of Systems Const Denies chills and Denies fever(s) Card Reports no additional complaints and Denies syncope Resp Denies cough GI Denies abdominal pain and Denies heartburn Reports as per HPI and Denies change in libido Neuro Denies syncope Psych Denies change in libido Endo Denies change in libido Physical Exam Const General: cooperative, healthy appearing, comfortable and no acute distress Orientation/consciousness: patient oriented x3 HEENT Face and sinus: Yes normal facial exam Mouth: moist mucous membranes Neck Neck: Yes normal visual inspection, Yes full ROM and Yes trachea midline Chest Chest palpation & inspection: normal inspection of the chest Resp Effort & Inspection: normal respiratory effort, able to speak in complete sentences and no respiratory distress GI Inspection: Yes normal to inspection Back/Spine/Pelvis Cervical Spine: normal cervical lordosis Thoracic/Lumbar Spine: thoracic and lumbar spine normal to inspection Skin General skin exam: no rashes or lesions noted Neuro General: patient oriented x3, gait normal, tone normal and moves all extremities Extrem General: Yes normal to inspection and Yes capillary refill normal Assessment & Plan Assessment & Plan (1) Muscle atrophy: Code(s): M62.50 - Muscle wasting and atrophy, not elsewhere classified, unspecified site Category: Medical Plan Check testosterone lab work, 4 week follow-up tele Orders: Orders Lutenizing Hormone Today M62.50 - Muscle wasting and atrophy, not elsewhere classified, unspecified site Testosterone, Free/Total Today M62.50 - Muscle wasting and atrophy, not elsewhere classified, unspecified site Patient Instructions: This note is constructed using voice recognition software. While every effort has been made to ensure accuracy oxygen equipment aide errors may have been included. Imaging studies, laboratory and physical exam results were discussed and reviewed in detail. No major barriers to patient understanding were identified. An opportunity to ask questions regarding the treatment plan was provided. All questions were answered. The patient expressed understanding and agreement with the above treatment plan. The patient is aware they should contact our office by phone for worsening of their current condition or the appearance of new urologic symptoms. Compliance is encouraged with any medications and followup testing that is ordered. It is a privilege to participate in the urologic care of your patient. If you have any questions or concerns regarding treatment for the above conditions, or other urologic issues, please do not hesitate to contact me. The office telephone contact is [phone]. Sincerely, Dr Syed Adams MD, [facility] - Urology Compassionate Specialist Care for the Genitourinary System Coding Level of Care Code Est Pt Level 3 (45924) Complex EM visit Add On G2211 Diagnoses Muscle atrophy M62.50
--- OUTSIDE RECORDS SUMMARY | 2025-06-12 11:00 | XMS_ITS | Clinical Summary ---
Author Organization [facility] ity Address [id number] [place] [id number] Care Team Providers Care Chemist Physical Name Role Phone Gifty Frankel MD Primary Care Provider [phone] Social History Tobacco Use Types Packs/Day Years [...] age to complete this topic Care Teams Chemist Physical Relationship Specialty Start Date End Date Gifty Frankel MD PCP - General Internal Medicine 01/25/21
== END 2025-06-12 11:50 | disposition home or self-care (01) ==
LOC: HO.HUSH 10:28
PROVIDERS: PCP Internal Medicine; Visit Provider Urology
DX: M62.50 Muscle wasting and atrophy, not elsewhere classified, unspecified site (principal); N32.81 Overactive bladder
CPT/HCPCS: 99213; G2211

== ENCOUNTER → 2025-06-12 10:28 | Outpatient (BNVA) | payer MEDICARE, MEDICAID, SELFPAY | PROVIDERS: PCP Internal Medicine; Visit Provider Urology | DX: M62.50 Muscle wasting and atrophy, not elsewhere classified, unspecified site (principal); Z79.899 Other long term (current) drug therapy | CPT/HCPCS: 51798; 81003; 99212 ==

== ENCOUNTER 2025-06-12 11:52 | Outpatient (REF) | payer MEDICARE, MEDICAID, SELFPAY ==
[2025-06-20 14:34] LABS: Testosterone, Free 45.2 pg/mL (30.0-135.0)
== END 2025-06-12 11:53 | disposition home or self-care (01) ==
LOC: HO.10HDL 11:52
PROVIDERS: Student in an Organized Health Care Education/Training Program; Visit Provider Urology
DX: E03.9 Hypothyroidism, unspecified (principal); M62.50 Muscle wasting and atrophy, not elsewhere classified, unspecified site
CPT/HCPCS: 36415; 83002; 84402; 84403; 84443

== ENCOUNTER 2025-06-20 09:33 | Outpatient (AMB) | payer MEDICARE, MEDICAID, SELFPAY ==
[2025-06-20 09:36] VITALS: BP 128/62; PULSE 65; O2SAT 98; BMI 27.7
--- NOTE | 2025-06-20 09:36 | A.OFFVIS_ITS ---
Vital Signs 06/20/25 09:36 Height 6 ft Weight 204 lb 2.369 oz BMI 27.7 BP 128/62 Blood Pressure Location Lt brachial Position Sitting Pulse 65 Pulse Source Pulse Oximeter Pulse Oximetry (%) 98 Oxygen Delivery Method Room Air Intake Visit Reasons: NTMNG Intake Note: Patient present today for NTMNG office visit. Family Consumer Science Fcs Teacher Required: No Accompanied by: Self / Same As Patient Allergies No Known Allergies (No Known Allergies*) Allergy (Verified 06/20/25 09:39) Medication List - Last Reconciled 06/20/25 by Ashly Montemayor MD acetaminophen (Tylenol) 650 mg PO Q6H PRN amlodipine 2.5 mg PO DAILY aspirin 81 mg PO DAILY azathioprine 50 mg PO DAILY glycopyrrolate-formoterol 9-4.8 mcg (Bevespi Aerosphere) 2 puffs inhalation BID immun glob C-dwi-epxq-IgA 0-50 10 gram 40 grams IV DAILY 5 days levothyroxine 50 mcg PO DAILY@0600 lisinopril 20 mg PO DAILY multivitamin 1 tab PO DAILY nitroglycerin 0.4 mg sublingual Q5M PRN omeprazole 20 mg PO DAILY@0630 prednisone 5 mg PO DAILY pyridostigmine bromide 60 - 120 mg (1 - 2 x 60 mg) PO TID rosuvastatin 5 mg PO DAILY 90 days sertraline 100 mg PO DAILY Ventolin HFA 90 mcg/actuation (albuterol sulfate) 2 puffs inhalation Q4-6H PRN NS HPI Comments Details: 75 YO Male, who is seen in F/U for a thyroid nodule and hypothyroidism. HPI He remains on Levothyroxine 50 mcg PO daily. Taking it appropriately. He has a history of a dominant 1.6 cm L sided thyroid nodule and another right 1.3 cm nodule which has increased in size from 0.7 cm maximum dimension to 1.3 cm from July 28 to 06/2023.. He underwent FNA biopsy of his L midpole 1.6 cm nodule 11/29/18. Cytology revealed bethesda category III, atypia of undetermined significance. This was sent for [employer] genomic sequence health care facility administrator testing, which was benign. He opted for surveillance of this nodule with yearly US. He had a repeat thyroid US yearly since that time with no significant change. No compressive symptoms. Last thyroid ultrasound was from 06/25/2023, I reviewed the images and the results are mentioned below. He denies any other symptoms of hyper or hypothyroidism currently. Interval history Labs 06/12/2025 showed normal TSH. Continues on levothyroxine 50 mcg daily. Most recent thyroid ultrasound from July 2024 shows the left mid lobe nodule measures less than a cm, in the right superior nodule also measures 0.9 cm. These are low risk appearing nodules, no follow up needed. There has been some discrepancy in the size over the last couple of ultrasounds mostly due to difference in the May the nodules were measured but overall they look stable in size, and low risk and do not not meet criteria for further follow up. Physical exam General: sitting comfortably in bed in no acute distress HEENT: normocephalic/atraumatic Neck: supple, symmetrical, no thyromegaly , no dorsocervical or supraclavicular fat pads Cardiac: normal heart sounds Pulm: normal breath sounds B/L, no added breath sounds Abd: not distended, no tenderness Extremities: no edema, no signs of myxedema Neuro: AAO x3, Speech: normal, no facial droop, moving all 4 extremities Laboratory Tests 06/14/24 08:56 TSH 2.14 Laboratory Tests 05/23/25 06/12/25 08:27 12:00 TSH 4.35 H 2.18 Free T4 0.94 US THYROID 06/28 CLINICAL INFORMATION: Nontoxic multinodular goiter. COMPARISON: Ultrasound thyroid 08/01/2022 and 12/07/2021. TECHNIQUE: Linear transducer castanon-scale and color Doppler examination with attention to the region of the thyroid. FINDINGS: SIZE: Measurements of the thyroid lobes and nodules are given in sagittal, anteroposterior and transverse dimensions respectively. Right Thyroid Lobe: 4.8 x 1.9 x 1.8 cm, volume 8.6 mL. Previously 4.4 x 1.7 x 1.9 cm, volume 7.4 mL. Parenchyma: The gland echotexture is homogeneous. Thyroid vascularity is normal. Left Thyroid Lobe: 4.3 x 1.5 x 1.3 cm, volume 4.4 mL. Previously 4.0 x 1.5 x 1.4 cm, volume 4.4 mL. Parenchyma: The gland echotexture is mildly heterogeneous. Thyroid vascularity is normal. Isthmus: 0.3 cm in maximum AP dimension. Previously 0.3 cm. Estimated total number of nodules greater than or equal to 1 cm: 2. Body Finisher nodules are described as follows: 1. Location: Left mid/inferior. Size: 1.1 x 0.8 x 0.8 cm, volume 0.32 mL. Previously: 1.1 x 0.7 x 0.8 cm, volume 0.32 mL. Nodule characteristics: Composition: Solid (2). Echogenicity: Isoechoic (1). Shape: Taller than wide (3). Margins: Smooth (0). Echogenic Foci: Macrocalcifications (1). ACR TI-RADS total points: 7 Previous: 6 ACR TI-RADS category: 5 Previous: 4 Significant change in size (>/= 20% in 2 dimensions and minimal increase of 2 mm or 50% or greater increase in volume): None Change in features: Olegario calcific patient is evident Change in ACR TI-RADS risk category: 5 2. Location: Right superior. Size: 1.3 x 0.7 x 1.0 cm, volume 0.49 mL. Previously: 0.6 x 0.7 x 0.6 cm, volume 0.13 mL. Nodule characteristics: Composition: Solid (2). Echogenicity: Isoechoic (1). Shape: Not taller than wide (0). Margins: Smooth (0). Echogenic Foci: None (0). ACR TI-RADS total points: 3 Previous: 3 ACR TI-RADS category: 3 Previous: 3 Significant change in size (>/= 20% in 2 dimensions and minimal increase of 2 mm or 50% or greater increase in volume): 1 Change in features: None Change in ACR TI-RADS risk category: None NODES: No lymphadenopathy is seen in the tissue surrounding the thyroid gland. US/US thyroid IMPRESSION: Dominant left-sided thyroid nodule with macrocalcifications. This is a TR 5 lesion. This has been previously biopsied. Continue surveillance imaging recommended. US THYROID 07/30 CLINICAL INFORMATION: Nontoxic multinodular goiter. COMPARISON: Thyroid ultrasound 07/05/2023 and 08/01/2022. Ultrasound-guided thyroid biopsy 11/29/2018. TECHNIQUE: Linear transducer grayscale and color Doppler examination with attention to the region of the thyroid. FINDINGS: SIZE: Measurements of the thyroid lobes and nodules are given in sagittal, anteroposterior and transverse dimensions respectively. Right Thyroid Lobe: 4.7 x 1.9 x 1.8 cm, volume 8.4 mL. Previously 4.8 x 1.9 x 1.8 cm, volume 8.6 mL. Parenchyma: The gland echotexture is homogeneous. Thyroid vascularity is normal. Left Thyroid Lobe: 4.4 x 1.4 x 1.7 cm, volume 5.5 mL. Previously 4.3 x 1.5 x 1.3 cm, volume 4.4 mL. Parenchyma: The gland echotexture is homogeneous. Thyroid vascularity is normal. Isthmus: 0.3 cm in maximum AP dimension. Previously 0.3 cm. Estimated total number of nodules greater than or equal to 1 cm: 0. Body Finisher nodules are described as follows: 1. Location: Left mid/lateral. Size: 0.7 x 0.7 x 0.7 cm, volume 0.2 mL. Previously: 1.1 x 0.8 x 0.8 cm, volume 0.3 mL. Nodule characteristics: Composition: Solid (2). Echogenicity: Very hypoechoic (3). Shape: Taller than wide (3). Margins: Smooth (0). Echogenic Foci: Punctate echogenic foci (3). ACR TI-RADS total points: 11 Previous: 7 ACR TI-RADS category: 5 Previous: 5 Significant change in size (>/= 20% in 2 dimensions and minimal increase of 2 mm or 50% or greater increase in volume): No Change in features: Yes Change in ACR TI-RADS risk category: No 2. Location: Right superior. Size: 0.9 x 0.7 x 0.7 cm, volume 0.3 mL. Previously: 1.3 x 0.7 x 1.0 cm, volume 0.5 mL. Nodule characteristics: Composition: Solid (2). Echogenicity: Isoechoic (1). Shape: Not taller than wide (0). Margins: Smooth (0). Echogenic Foci: None (0). ACR TI-RADS total points: 3 Previous: 3 ACR TI-RADS category: 3 Previous: 3 Significant change in size (>/= 20% in 2 dimensions and minimal increase of 2 mm or 50% or greater increase in volume): No Change in features: No Change in ACR TI-RADS risk category: No NODES: No lymphadenopathy is seen in the tissue surrounding the thyroid gland. US/US thyroid IMPRESSION: Small bilateral thyroid nodules are seen, as detailed. No specific imaging follow-up is recommended. . 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) Back pain Arthritis JULIEN (dyspnea on exertion) Disc degeneration, lumbar Hyperglycemia Abdominal pain Pulmonary nodule Hyperlipidemia COPD (chronic obstructive pulmonary disease) Myasthenia gravis Scoliosis Spondylosis of lumbosacral spine with radiculopathy Degenerative disc disease, lumbar Hypothyroid Leg cramps Emphysema of lung Iron deficiency anemia Osteoarthritis Diastolic dysfunction Hypertension Incomplete emptying of bladder due to benign prostatic hyperplasia Nocturia associated with benign prostatic hyperplasia BPH loc w urin obs/LUTS Surgical History History of right inguinal hernia repair (~10/31/23) History of carpal tunnel surgery Hx of hand surgery History of left inguinal hernia repair S/P insertion of spinal cord stimulator History of colonoscopy History of lung surgery (~11/2020) History of total right hip arthroplasty (~02/2018) History of hydrocelectomy Hx of tonsillectomy Family History Father No problems noted. Mother No problems noted. Social History Household Members: None Household Members Other:: spouse has dementia Housing: House Are you a primary geriatric care manager to a significant other at home: Yes (-has dementia) Do you presently have visiting nurse or other home services: No Alcohol intake: never Patient Tobacco Use Status: Never used Tobacco e-Cigarette/Vaping Use: Never Used Second Hand Smoke Exposure: No Advance Directives Date on File: 11/01/23 service: No Current occupational status: retired Current occupation: right handed Cognitive needs: No Hearing needs: No Vision needs: No Physical Exam Vital Signs: Last Vital Signs Pulse 65 06/20/25 09:36 BP 128/62 06/20/25 09:36 Pulse Ox 98 06/20/25 09:36 Oxygen Delivery Method Room Air 06/20/25 09:36 BMI result Body Mass Index 27.7 Assessment & Plan Assessment & Plan (1) Hypothyroid: Code(s): E03.9 - Hypothyroidism, unspecified Category: Medical Qualifiers: Hypothyroidism type: unspecified Qualified Code(s): E03.9 - Hypothyroidism, unspecified Plan: Biochemically Euthyroid. TSH normal from June 30. Plan: -continue levothyroxine 50 mcg daily -PCP can repeat TFTs annually (2) Multinodular thyroid: Code(s): E04.2 - Nontoxic multinodular goiter Category: Medical Plan: History of thyroid nodules at least dating back to 2018. FNA 11/24 of left dominant in 1.6 cm thyroid nodule was AUS, with benign Afirma. Labs 06/12/2025 showed normal TSH. Continues on levothyroxine 50 mcg daily. Most recent thyroid ultrasound from July 2024 shows the left mid lobe nodule measures less than a cm, in the right superior nodule also measures 0.9 cm. These are low risk appearing nodules, no follow up needed. There has been some discrepancy in the size over the last couple of ultrasounds mostly due to difference in the May the nodules were measured but overall they look stable in size, and low risk and do not not meet criteria for further follow up. At this point we will discharge him back to the care of his PCP. If he has a sitting clinical changes, can consider repeat imaging and if anything concerning is found, he can be referred back to us. otherwise no need for repeat imaging for these nodules. Plan See above Coding Level of Care Code Est Pt Level 3 (93490) Diagnoses Hypothyroidism, unspecified type E03.9 Hypothyroidism type: unspecified Multinodular thyroid E04.2
--- OUTSIDE RECORDS SUMMARY | 2025-06-20 09:43 | XMS_ITS | Clinical Summary ---
Author Organization [facility] ity Address [id number] [place] [id number] Care Team Providers Care Warehouse Consultant Name Role Phone Gifty Frankel MD Primary Care Provider [phone] Social History Tobacco Use Types Packs/Day Years [...] age to complete this topic Care Teams Warehouse Consultant Relationship Specialty Start Date End Date Gifty Frankel MD PCP - General Internal Medicine 01/25/21
== END 2025-06-20 10:00 | disposition home or self-care (01) ==
LOC: HO.ENCR 09:34
PROVIDERS: PCP Internal Medicine; Visit Provider Student in an Organized Health Care Education/Training Program
DX: E03.9 Hypothyroidism, unspecified (principal); E04.2 Nontoxic multinodular goiter
CPT/HCPCS: 99213

== ENCOUNTER → 2025-06-20 09:33 | Outpatient (BNVA) | payer MEDICARE, MEDICAID, SELFPAY | PROVIDERS: PCP Internal Medicine; Visit Provider Student in an Organized Health Care Education/Training Program | DX: E04.2 Nontoxic multinodular goiter (principal); E03.9 Hypothyroidism, unspecified | CPT/HCPCS: 99212 ==

== ENCOUNTER 2025-07-17 08:55 | Outpatient (AMB) | payer MEDICARE, MEDICAID, SELFPAY ==
--- NOTE | 2025-07-17 08:55 | MHC.OFFVIS ---
Intake Visit Reasons: 4w/labs Intake Note: patient presents today for: telehealth 4wk/labs urology medications: none blood thinners: aspirin labs done 06/12/25: t-testo 393, fr-testo 45.2, hormone 20.2 Telemarketing Supervisor Required: No Accompanied by: Self / Same As Patient Allergies No Known Allergies (No Known Allergies*) Allergy (Verified 07/17/25 08:57) HPI Comments Details: Olegario is a very pleasant male. He is a patient of Dr. Suazo. He is seen for the following urologic conditions - lower urinary tract symptoms - renal cyst Telemedicine Evaluation 15 min Consultation Guang Lian Shi Dai Gabriel Video Remains on amitriptyline and gabapentin for nocturia UA normal Bladder emptying PSA 2.8 Has been feeling weak and losing muscle mass secondary to myasthenia gravis Follow-up check of laboratories - Labs 06/30 - T393, LH 20.2 Given high luteinizing hormone it appears his body is trying to generate more testosterone. This is probably in response to progression of myasthenia gravis with weakness. We will trial topical testosterone He mentioned his with progressive Lewy body dementia is now at a jail Has no children Discussed possible InterStim Has stimulator for sciatica Underwent Botox 05/29 Does not think this was beneficial Baseline nocturia 4-5 Overactive bladder - azathioprine contributory Cystoscopy 02/25 trabeculation with reduced stability open bladder neck Failed trial of tolterodine and oxybutynin, toviaz secondary to dry mouth and dry eyes Nocturia stabilized with imipramine over still getting up 5 times at night Current therapy amitriptyline with gabapentin Lower urinary tract symptoms Current encounter for the follow-up of lower urinary tract symptoms - good response with finasteride daily for effective stream and emptying Current treatment includes medication - none Prostate Symptom Score 8/18 , Moderate (9-19), Bother 3. Symptoms include / , incomplete emptying, weak stream, nocturia (>2), and are progressing. Results from testing include cystoscopy high riding bladder neck (median bar) 07/24, 01/25 median bar with mild trabeculation renal/bladder us Yes date 07/04/2018 PVR 35 prostate size 45 PSA 02/22 1.2, 11/26 0.5 Prostate volume 30-50gm. 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) Back pain Arthritis JULIEN (dyspnea on exertion) Disc degeneration, lumbar Hyperglycemia Abdominal pain Pulmonary nodule Hyperlipidemia COPD (chronic obstructive pulmonary disease) Myasthenia gravis Scoliosis Spondylosis of lumbosacral spine with radiculopathy Degenerative disc disease, lumbar Hypothyroid Leg cramps Emphysema of lung Iron deficiency anemia Osteoarthritis Diastolic dysfunction Hypertension Incomplete emptying of bladder due to benign prostatic hyperplasia Nocturia associated with benign prostatic hyperplasia BPH loc w urin obs/LUTS Surgical History History of right inguinal hernia repair (~10/31/23) History of carpal tunnel surgery Hx of hand surgery History of left inguinal hernia repair S/P insertion of spinal cord stimulator History of colonoscopy History of lung surgery (~11/2020) History of total right hip arthroplasty (~02/2018) History of hydrocelectomy Hx of tonsillectomy Family History Father No problems noted. Mother No problems noted. Social History Household Members: None Household Members Other:: spouse has dementia Housing: House Are you a primary hearing care practitioner to a significant other at home: Yes (-has dementia) Do you presently have visiting nurse or other home services: No Alcohol intake: never Patient Tobacco Use Status: Never used Tobacco e-Cigarette/Vaping Use: Never Used Second Hand Smoke Exposure: No Advance Directives Date on File: 11/01/23 service: No Current occupational status: retired Current occupation: right handed Cognitive needs: No Hearing needs: No Vision needs: No Review of Systems Const All systems reviewed & are unremarkable except as noted in HPI and below Reports no additional complaints Resp Reports no additional complaints GI Reports no additional complaints Reports as per HPI Musc Reports no additional complaints Physical Exam Telemedicine evaluation Appropriate responses Regular breathing rate and rhythm HEENT Head: Yes normal to inspection Ears: hearing grossly normal bilaterally Eyes General: appearance normal, both eyes and all related structures Neck Neck: Yes normal visual inspection Chest Chest palpation & inspection: normal inspection of the chest Resp Effort & Inspection: normal respiratory effort and able to speak in complete sentences Telehealth Telehealth Telehealth Platform: Guang Lian Shi Dai Location of provider rendering services: practice address Location of patient: address on file Patient Identification confirmed using: Name, : Yes Telehealth method: video Patient verbally consented to treatment: Yes Patient verbally consented to billing insurance company: Yes Patient informed of any privacy concerns related to visit: Yes Assessment & Plan Assessment & Plan (1) Myasthenia gravis: Comment: involving eyelids, right facial muscles & lower extremities-follows w/Dr. Saez Code(s): G70.00 - Myasthenia gravis without (acute) exacerbation Category: Medical (2) Muscle atrophy: Code(s): M62.50 - Muscle wasting and atrophy, not elsewhere classified, unspecified site Category: Medical (3) Primary testicular failure: Code(s): E29.1 - Testicular hypofunction Category: Medical Plan Muscle atrophy and weakness in setting of neurologic disorder Pituitary shows hyperstimulation in attempt to maintain testosterone output Primary testicular failure Orders: Orders Testosterone, Free/Total 3 Months M62.50 - Muscle wasting and atrophy, not elsewhere classified, unspecified site Medications: New testosterone Apply to shoulder and rub in until dry 1 packet transdermal DAILY 150 grams 5RF 30 days E29.1 - Testicular hypofunction, G70.00 - Myasthenia gravis without (acute) exacerbation, M62.50 - Muscle wasting and atrophy, not elsewhere classified, unspecified site Patient Instructions: This note is constructed using voice recognition software. While every effort has been made to ensure accuracy junior account manager errors may have been included. Imaging studies, laboratory and physical exam results were discussed and reviewed in detail. No major barriers to patient understanding were identified. An opportunity to ask questions regarding the treatment plan was provided. All questions were answered. The patient expressed understanding and agreement with the above treatment plan. The patient is aware they should contact our office by phone for worsening of their current condition or the appearance of new urologic symptoms. Compliance is encouraged with any medications and followup testing that is ordered. It is a privilege to participate in the urologic care of your patient. If you have any questions or concerns regarding treatment for the above conditions, or other urologic issues, please do not hesitate to contact me. The office telephone contact is [phone]. Sincerely, Dr Syed Adams MD, [facility] - Urology Compassionate Specialist Care for the Genitourinary System Coding Level of Care Code Tele Est Pt Level 4 (91111) Complex EM visit Add On G2211 Diagnoses Myasthenia gravis G70.00 Muscle atrophy M62.50 Primary testicular failure E29.1
--- OUTSIDE RECORDS SUMMARY | 2025-07-17 10:05 | XMS_ITS | Clinical Summary ---
Author Organization [facility] ity Address [address] [place] [id number] Care Team Providers Care Honest John Rocket Crew Member Name Role Phone Gifty Frankel MD Primary Care Provider [phone] Social History Tobacco Use Types Packs/Day Years [...] 2001 Zoster Vaccines (1 of 2) 2001 Depression Screening 11/06/2024 COVID-19 Vaccine ( - 2023-2 5 season) 2025 Influenza Vaccine (#1) 2025 RSV Immunization Adult [...] age to complete this topic Care Teams Honest [employer] Crew Member Relationship Specialty Start Date End Date Gifty Frankel MD PCP - General Internal Medicine 01/25/21
== END 2025-07-17 09:52 | disposition home or self-care (01) ==
LOC: HO.HUSH 08:55
PROVIDERS: PCP Internal Medicine; Visit Provider Urology
DX: G70.00 Myasthenia gravis without (acute) exacerbation (principal); M62.50 Muscle wasting and atrophy, not elsewhere classified, unspecified site; E29.1 Testicular hypofunction
CPT/HCPCS: 99214; G2211

== ENCOUNTER 2025-08-20 09:26 | Outpatient (AMB) | payer MEDICARE, MEDICAID, SELFPAY ==
--- NOTE | 2025-08-20 09:46 | A.OFFVIS_ITS ---
Vital Signs 08/20/25 09:47 Height 6 ft Weight 210 lb 8.663 oz BMI 28.6 BP 128/68 Blood Pressure Location Lt brachial Position Sitting Pulse 69 Pulse Source Pulse Oximeter Pulse Oximetry (%) 98 Oxygen Delivery Method Room Air Intake Visit Reasons: copd Intake Note: pt is here for follow up and states he does get some short of breath with walks Air Saw Operator Required: No Service Aide: Service Aide offered & declined Allergies No Known Allergies (No Known Allergies*) Allergy (Verified 08/20/25 10:20) Medication List - Last Reconciled 08/20/25 by David Vizcaino MD acetaminophen (Tylenol) 650 mg PO Q6H PRN amlodipine 2.5 mg PO DAILY aspirin 81 mg PO DAILY azathioprine 50 mg PO DAILY glycopyrrolate-formoterol 9-4.8 mcg (Bevespi Aerosphere) 2 puffs PO BID levothyroxine 50 mcg PO DAILY@0600 lisinopril 20 mg PO DAILY multivitamin 1 tab PO DAILY nitroglycerin 0.4 mg sublingual Q5M PRN omeprazole 20 mg PO DAILY@0630 prednisone 5 mg PO DAILY pyridostigmine bromide 60 - 120 mg (1 - 2 x 60 mg) PO TID rosuvastatin 5 mg PO DAILY 90 days sertraline 100 mg PO DAILY testosterone 1 packet transdermal DAILY 30 days Ventolin HFA 90 mcg/actuation (albuterol sulfate) 2 puffs inhalation Q4-6H PRN NS Do you need a note to return to daycare/school/sports/work: No HPI HPI copd: Details: THIS 75 YEARS OLD GENTLEMAN IS HERE FOR HIS ROUTINE PULMONARY FOLLOW-UP AFTER 4 MONTHS. FAR BREATHING IS CONCERNED IT HAS BEEN STABLE, THERE HAS BEEN NO RESPIRATORY INFECTION. .NO COUGH OR WHEEZING HOWEVER HE DOES COMPLAIN OF GETTING SHORT OF BREATH MORE EASILY THAN BEFORE. HE COMPLAINS OF GENERALIZED MUSCULAR WEAKNESS, RELATED TO HIS MYASTHENIA GRAVIS. HE CLAIMS THAT IN SPITE OF HIS ONGOING TREATMENT WITH IS 0 THIGH EPHEDRINE, PYRIDOSTIGMINE, PREDNISONE 5 MG DAILY. AND IV INFUSION THERAPY. HE IS GETTING PROGRESSIVE MUSCULAR WEAKNESS. WHEN HE CAME TO THE OFFICE HE HAD A WEAK SPELL AND HAD TO SIT DOWN IN THE WHEELCHAIR. HE DENIES FEVER CHILL OR ANY URINARY SYMPTOMS. 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) Back pain Arthritis JULIEN (dyspnea on exertion) Disc degeneration, lumbar Hyperglycemia Abdominal pain Pulmonary nodule Hyperlipidemia COPD (chronic obstructive pulmonary disease) Myasthenia gravis Scoliosis Spondylosis of lumbosacral spine with radiculopathy Degenerative disc disease, lumbar Hypothyroid Leg cramps Emphysema of lung Iron deficiency anemia Osteoarthritis Diastolic dysfunction Hypertension Incomplete emptying of bladder due to benign prostatic hyperplasia Nocturia associated with benign prostatic hyperplasia BPH loc w urin obs/LUTS Surgical History History of right inguinal hernia repair (~10/31/23) History of carpal tunnel surgery Hx of hand surgery History of left inguinal hernia repair S/P insertion of spinal cord stimulator History of colonoscopy History of lung surgery (~11/2020) History of total right hip arthroplasty (~02/2018) History of hydrocelectomy Hx of tonsillectomy Family History Father No problems noted. Mother No problems noted. Social History Household Members: None Household Members Other:: spouse has dementia Housing: House Are you a primary team primary care physician to a significant other at home: Yes (-has dementia) Do you presently have visiting nurse or other home services: No Alcohol intake: never Patient Tobacco Use Status: Never used Tobacco e-Cigarette/Vaping Use: Never Used Second Hand Smoke Exposure: No Advance Directives Date on File: 11/01/23 service: No Current occupational status: retired Current occupation: right handed Cognitive needs: No Hearing needs: No Vision needs: No Review of Systems Const All systems reviewed & are unremarkable except as noted in HPI and below Eyes Reports no additional complaints ENT Reports no additional complaints Card Denies chest pain, Denies irregular heart rhythm and Reports dyspnea on exertion Resp Reports as per HPI and Reports dyspnea on exertion GI Reports no additional complaints Reports no additional complaints Musc Reports back pain (Mild) Skin/Breast Reports system reviewed and no additional complaints, except as documented Psych Reports no additional complaints Endo Reports no additional complaints De/Lymph Reports no additional complaints Physical Exam Vital Signs: Last Vital Signs Pulse 69 08/20/25 09:47 BP 128/68 08/20/25 09:47 Pulse Ox 98 08/20/25 09:47 Oxygen Delivery Method Room Air 08/20/25 09:47 BMI result Body Mass Index 28.6 Const General: comfortable, no acute distress, alert and awake Orientation/consciousness: patient oriented x3 HEENT Head: Yes normal to inspection General nose exam: No nasal polyps present, No nasal discharge present and Other nasal findings present ( mild nasal congestion is noted) Face and sinus: Yes sinuses nontender Mouth: oropharynx normal Throat: Yes posterior oropharynx normal Eyes General: appearance normal, both eyes and all related structures Neck Neck: Yes normal visual inspection, Yes no lymphadenopathy, Yes trachea midline and Yes no JVD Thyroid: Thyroid normal Chest Chest palpation & inspection: normal inspection of the chest, normal palpation of entire chest wall and no tenderness Resp Other: Percussion note resonant, breath sounds are slightly diminished over the basilar areas. No wheezes ,CREPS or rhonchi are heard. Cardio Palpation: PMI not normal (Not palpable) Rate: regular rate Rhythm: regular rhythm Heart sounds: no gallops and no murmurs GI Palpation (GI): Soft to palpation, nontender, No hepatosplenomegaly present, no masses and Other GI palpation findings present (Abdomen is moderately obese) Auscultation: normal bowel sounds Back/Spine/Pelvis Thoracic/Lumbar Spine: thoracic and lumbar spine normal to inspection Skin General skin exam: no rashes or lesions noted Neuro General: patient oriented x3 and no focal motor deficits Cranial nerves: Yes CN's II-XII intact bilaterally Extrem General: Yes normal to inspection, Yes no clubbing, cyanosis or edema and Yes no calf tenderness Psych Appearance: grossly normal and well kempt Speech and movement: Normal speech and movement present Office Procedures Spirometry Testing Spirometry 52829- Spirometry (SPIROMETRY PERFORMED) Results Reviewed Results Reviewed: SPIROMETRY IN OFFICE FVC = 91 % FEV1 = 62 % FEV1/FVC = 51 FEF 25-75 = 26 % COMPARED WITH RESULTS IN 2023 THERE IS FURTHER DECLINE IN THE FLOW VOLUMES Assessment & Plan Assessment & Plan (1) COPD (chronic obstructive pulmonary disease): Comment: HE HAS MODERATELY SEVERE CHRONIC OBSTRUCTIVE PULMONARY DISORDER. WITH HIS CURRENT MEDICAL REGIMEN HIS PULMONARY STATUS IS STAYING STABLE. COMPLAINS OF INCREASED SHORTNESS OF BREATH AND HAS TO STOP AFTER WALKING ABOUT HALF A BLOCK. LUCKILY HE HAS HAD NO ACUTE RESPIRATORY INFECTION. Code(s): J44.9 - Chronic obstructive pulmonary disease, unspecified Category: Medical Plan: CONTINUE TO USE BEVESPI AEROSPHERE 2 PUFFS B.I.D.. HE IS ALREADY ON PREDNISONE 5 MG DAILY( WHICH IS MAINLY FOR MYASTHENIA GRAVIS ) MAY USE ALBUTEROL HFA 2 PUFFS Q 6 HOURS P.R.N. DO DEEP BREATHING EXERCISES 3 TIMES A DAY DAILY. BECAUSE OF USING PREDNISONE CHRONICALLY, HE DOES NEED TO USE VITAMIN-D AND CALCIUM SUPPLEMENT . BECAUSE OF HIS INCREASED WEAKNESS IN THE LOWER EXTREMITY, I ADVISED HIM TO SEE DR. Khadra PENNINGTON , REGULARLY. Orders: Orders AMB Spirometry Testing Today J44.9 - Chronic obstructive pulmonary disease, unspecified Coding Level of Care Code Est Pt Level 3 (67261) Diagnoses COPD (chronic obstructive pulmonary disease) J44.9 CPT Codes Spirometry - CPT: 21198- Spirometry ([id number])
[2025-08-20 09:47] VITALS: BP 128/68; PULSE 69; O2SAT 98; BMI 28.6
--- OUTSIDE RECORDS SUMMARY | 2025-08-20 10:43 | XMS_ITS | Clinical Summary ---
Author Organization [facility] ity Address [address] [place] [id number] Care Team Providers Care School Crossing Guard Name Role Phone Gifty Frankel MD Primary Care Provider [phone] Social History Tobacco Use Types Packs/Day Years [...] age to complete this topic Care Teams School Crossing Guard Relationship Specialty Start Date End Date Gifty Frankel MD PCP - General Internal Medicine 01/25/21
== END 2025-08-20 10:54 | disposition home or self-care (01) ==
PROVIDERS: PCP Internal Medicine; Visit Provider Internal Medicine
DX: J44.9 Chronic obstructive pulmonary disease, unspecified (principal)
CPT/HCPCS: 94010; 99213

== ENCOUNTER → 2025-08-20 09:26 | Outpatient (BNVA) | payer MEDICARE, MEDICAID, SELFPAY | PROVIDERS: PCP Internal Medicine; Visit Provider Internal Medicine | DX: J44.9 Chronic obstructive pulmonary disease, unspecified (principal) | CPT/HCPCS: 94010; 99212 ==

== ENCOUNTER 2025-08-25 08:26 | Outpatient (AMB) | payer MEDICARE, MEDICAID, SELFPAY ==
--- NOTE | 2025-08-25 08:27 | MHC.OFFVIS ---
Intake Visit Reasons: worsening symptoms Allergies No Known Allergies (No Known Allergies*) Allergy (Verified 08/20/25 10:20) HPI Comments Details: 75 y/o man with HTN, HLD, CAD, LBP treated with a spinal cord stiumulator, and antibody positive Myasthenia Gravis that presented with double vision in 2020. He is presenting with increasing weakness and breathing difficulties. The patient's myasthenia gravis appears stable on his current treatment regimen of IVIG, prednisone, and pyridostigmine. However, he reports a lack of improvement in symptomology, specifically detailing worsening muscle weakness with a noted right-side predominance, increased eyelid twitching, and exertional shortness of breath leading to occasional dizziness. Despite previous self-management strategies, he recently discovered through a parks recreation coordinator's test that his breathing capacity decreased by 15%. This patient also experiences anxiety and depressive symptoms, possibly exacerbated by recent personal stressors, which might contribute to his perceived decline in physical health and functional capacity. He acknowledges taking sertraline for mood, but no other mental health support is currently engaged. Pulmonary diagnostics performed during previous care, such as lung resection, further delineate the chronic challenges in pulmonary function that might not solely relate to myasthenia gravis. Pulmonology records are currently incomplete, necessitating a re-evaluation with a forthcoming pulmonary function test to ascertain the depth of the impaired breathing capacity. 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) Back pain Arthritis JULIEN (dyspnea on exertion) Disc degeneration, lumbar Hyperglycemia Abdominal pain Pulmonary nodule Hyperlipidemia COPD (chronic obstructive pulmonary disease) Myasthenia gravis Scoliosis Spondylosis of lumbosacral spine with radiculopathy Degenerative disc disease, lumbar Hypothyroid Leg cramps Emphysema of lung Iron deficiency anemia Osteoarthritis Diastolic dysfunction Hypertension Incomplete emptying of bladder due to benign prostatic hyperplasia Nocturia associated with benign prostatic hyperplasia BPH loc w urin obs/LUTS Surgical History History of right inguinal hernia repair (~10/31/23) History of carpal tunnel surgery Hx of hand surgery History of left inguinal hernia repair S/P insertion of spinal cord stimulator History of colonoscopy History of lung surgery (~11/2020) History of total right hip arthroplasty (~02/2018) History of hydrocelectomy Hx of tonsillectomy Family History Father No problems noted. Mother No problems noted. Social History Household Members: None Household Members Other:: spouse has dementia Housing: House Are you a primary personal care service provider to a significant other at home: Yes (-has dementia) Do you presently have visiting nurse or other home services: No Alcohol intake: never Patient Tobacco Use Status: Never used Tobacco e-Cigarette/Vaping Use: Never Used Second Hand Smoke Exposure: No Advance Directives Date on File: 11/01/23 service: No Current occupational status: retired Current occupation: right handed Cognitive needs: No Hearing needs: No Vision needs: No Review of Systems Narrative - Constitutional: Reports increasing weakness. - Ophthalmologic: Reports eyelid twitching. - Cardiovascular: Denies chest pain. - Respiratory: Reports shortness of breath on exertion, dizziness; history of lung surgery. - Neurological: Reports muscle weakness predominantly on right side. - Psychological: Reports anxiety, denies current depression therapy. Physical Exam Neuro Other: Mental Status: Alert and oriented to person, place, and time. Normal attention. Normal spontaneous speech, fluency, and comprehension. Cranial Nerves: CN II: Visual bedolla full to confrontation, visual acuity intact. CN III, IV, : Pupils equal, round, reactive to light and accommodation. Extraocular movements are normal. CN V: Facial sensation is normal. CN VII: Facial movements symmetrical. CN VIII: Hearing intact to bedside conversation is normal. CN IX, X: Palate elevates symmetrically. CN XI: Shoulder shrug and head turn symmetrical. CN XII: Tongue midline without atrophy or fasciculations. Mild right-sided ptosis. Slow cautious gait with a cane with stooped posture. Extrapyramidal: Full facial expressions and blinking. No rigidity. Movements are appropriate with no tremor or abnormality. Speech: Normal; no dysarthria or tremor. Assessment & Plan Assessment & Plan (1) Myasthenia gravis: Comment: [place] [facility] [place] 2023: High titres [facility] P/Q at [facility] in 2019: WNL NCV/EMG RTUE Severe right median neuropathy across the Carpal tunnel. 12/07/21. CT chest WWO [place] [facility] [place]: R lower lumg mass with adenopathy NCV/EMG LE 06/17/20 Moderate to severe axonal sensory and motor peripheral neuropathy. CT brain WO [place] [facility] [place] and 2019: mild cerebellar and cerebral atrophy MRI brain WO [place] [facility] [place] 2018 and 2019: atrophy and mild MVD Code(s): G70.00 - Myasthenia gravis without (acute) exacerbation Category: Medical (2) Chronic pain syndrome: Code(s): G89.4 - Chronic pain syndrome Category: Medical (3) Depression: Code(s): F32.A - Depression, unspecified Category: Medical Qualifiers: Depression Type: persistent depressive disorder Qualified Code(s): F34.1 - Dysthymic disorder Plan Impression: 1. Myasthenia gravis not fully control 2. Depression Recommendations: 1. Continue prednisone 5 mg a day 2. Pyridostigmine 60 mg 1-2, 2 to 3 times a day 3. Azathioprine 50 mg daily 4. Formal PFTs 5. Next IVIg dose in Sep is already scheduled 6. Sertraline 100mg a day We discussed that the primary diagnosis remains myasthenia gravis, with the current regimen of IVIG, corticosteroids, and pyridostigmine providing a relatively stable control of symptoms but without significant improvement. I noted the patient's concern regarding decreased pulmonary function observed by his parks recreation coordinator and the forthcoming need for a repeat pulmonary function test to assist in the evaluation. For the psychosomatic framework exacerbated by his stress levels, I advocated for continued sertraline treatment and emphasized the benefit of therapy sessions. The patient was reassured about the stability of myasthenia gravis, advised that significant side effects were not anticipated with the current treatment, and informed about further lung function tests to explore potential decline. We considered the role of grief, anxiety, and depression, potentially compounding physical symptoms, and initiated a plan for mental health referrals. We reviewed the follow-up plan with pulmonology and confirmed the schedule for the next IVIG in September. Orders: Orders PFT pulmonary function test Today G70.00 - Myasthenia gravis without (acute) exacerbation Referrals Behavioral Health Referral F34.1 - Dysthymic disorder Coding Level of Care Code Est Pt Level 4 (62200) Diagnoses Myasthenia gravis G70.00 Chronic pain syndrome G89.4 Persistent depressive disorder F34.1 Depression Type: persistent depressive disorder
--- OUTSIDE RECORDS SUMMARY | 2025-08-25 08:49 | XMS_ITS | Clinical Summary ---
Author Organization [facility] ity Address [address] [place] [id number] Care Team Providers Care Director Process Improvement Name Role Phone Gifty Frankel MD Primary Care Provider [phone] Social History Tobacco Use Types Packs/Day Years [...] age to complete this topic Care Teams Director Process Improvement Relationship Specialty Start Date End Date Gifty Frankel MD PCP - General Internal Medicine 01/25/21
== END 2025-08-25 08:58 | disposition home or self-care (01) ==
LOC: HO.HSM 08:27
PROVIDERS: PCP Internal Medicine; Visit Provider Psychiatry & Neurology Neurology
DX: G70.00 Myasthenia gravis without (acute) exacerbation (principal); G89.4 Chronic pain syndrome; F34.1 Dysthymic disorder
CPT/HCPCS: 99214

== ENCOUNTER → 2025-08-25 08:26 | Outpatient (BNVA) | payer MEDICARE, MEDICAID, SELFPAY | PROVIDERS: PCP Internal Medicine; Visit Provider Psychiatry & Neurology Neurology | DX: G70.00 Myasthenia gravis without (acute) exacerbation (principal); F34.1 Dysthymic disorder; M54.50 Low back pain, unspecified; G89.29 Other chronic pain; Z96.82 Presence of neurostimulator | CPT/HCPCS: 99212 ==

== ENCOUNTER 2025-08-28 08:49 | Outpatient (AMB) | payer MEDICARE, MEDICAID, SELFPAY ==
[2025-08-28 08:54] VITALS: BP 120/72; PULSE 74; BMI 28.1
--- NOTE | 2025-08-28 08:54 | MHC.OFFVIS ---
Vital Signs 08/28/25 08:54 Height 6 ft Weight 207 lb 3.752 oz BMI 28.1 BP 120/72 Blood Pressure Location Lt brachial Position Sitting Pulse 74 Pulse Source Pulse Oximeter Intake Visit Reasons: 4m follow up Bathroom Tiling Professional Required: No Allergies No Known Allergies (No Known Allergies*) Allergy (Verified 08/28/25 08:57) Medication List - Last Reconciled 08/28/25 by Valarie López NP-C acetaminophen (Tylenol) 650 mg PO Q6H PRN amlodipine 2.5 mg PO DAILY aspirin 81 mg PO DAILY azathioprine 50 mg PO DAILY glycopyrrolate-formoterol 9-4.8 mcg (Bevespi Aerosphere) 2 puffs PO BID levothyroxine 50 mcg PO DAILY@0600 lisinopril 20 mg PO DAILY multivitamin 1 tab PO DAILY nitroglycerin 0.4 mg sublingual Q5M PRN omeprazole 20 mg PO DAILY@0630 prednisone 5 mg PO DAILY pyridostigmine bromide 60 - 120 mg (1 - 2 x 60 mg) PO TID rosuvastatin 5 mg PO DAILY 90 days sertraline 100 mg PO DAILY Ventolin HFA 90 mcg/actuation (albuterol sulfate) 2 puffs inhalation Q4-6H PRN NS HPI HPI 4m follow up: Details: Olegario is a 75 yo male with PMH of myasthenia gravis, HTN, HLD, LVH, COPD, chronic reports of shortness of breath, syncope, nonobstructive coronary artery disease who presents for follow up. Today he reports that he has not been doing as well in the last few months. He has had increasing weakness in his right leg and ambulates with a cane. He has fatigue when he does physical activity in his noticing some mild shortness of breath. He is following with Dr. Vizcaino for his COPD and with Dr. Saez for Neurology. He has not had recurrent chest discomfort. No chest discomfort brought on by exertion. No PND, orthopnea or edema. He does have some lightheadedness at times with quick position changes and bending which is not new. No presyncope, syncope, falls. Compliant with meds. 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) Back pain Arthritis JULIEN (dyspnea on exertion) Disc degeneration, lumbar Hyperglycemia Abdominal pain Pulmonary nodule Hyperlipidemia COPD (chronic obstructive pulmonary disease) Myasthenia gravis Scoliosis Spondylosis of lumbosacral spine with radiculopathy Degenerative disc disease, lumbar Hypothyroid Leg cramps Emphysema of lung Iron deficiency anemia Osteoarthritis Diastolic dysfunction Hypertension Incomplete emptying of bladder due to benign prostatic hyperplasia Nocturia associated with benign prostatic hyperplasia BPH loc w urin obs/LUTS Surgical History History of right inguinal hernia repair (~10/31/23) History of carpal tunnel surgery Hx of hand surgery History of left inguinal hernia repair S/P insertion of spinal cord stimulator History of colonoscopy History of lung surgery (~11/2020) History of total right hip arthroplasty (~02/2018) History of hydrocelectomy Hx of tonsillectomy Family History Father No problems noted. Mother No problems noted. Social History Household Members: None Household Members Other:: spouse has dementia Housing: House Are you a primary healthcare economics consultant to a significant other at home: Yes (-has dementia) Do you presently have visiting nurse or other home services: No Alcohol intake: never Patient Tobacco Use Status: Never used Tobacco e-Cigarette/Vaping Use: Never Used Second Hand Smoke Exposure: No Advance Directives Date on File: 11/01/23 service: No Current occupational status: retired Current occupation: right handed Cognitive needs: No Hearing needs: No Vision needs: No Review of Systems Const All systems reviewed & are unremarkable except as noted in HPI and below ENT Denies dizziness Card Denies chest pain, Denies chest pain at rest, Denies chest pain with activity, Denies rapid heart rate, Denies pedal edema, Denies edema, Denies leg edema, Denies lightheadedness, Denies palpitations, Reports dyspnea, Denies dyspnea on exertion and Denies orthopnea Resp Denies cough, Reports dyspnea and Denies dyspnea on exertion GI Denies hematochezia and Denies change in stool character Musc Details: leg weakness - ambulates with cane Denies abnormal gait, Denies limited range of motion, Denies muscle cramps, Reports muscle weakness, Denies numbness, Denies radiating pain into limb, Denies stiffness and Denies tingling Neuro Denies abnormal gait, Denies dizziness, Denies numbness and Denies tingling Endo Denies palpitations Physical Exam Vital Signs: Last Vital Signs Pulse 74 08/28/25 08:54 BP 120/72 08/28/25 08:54 BMI result Body Mass Index 28.1 Const General: cooperative, healthy appearing, comfortable and no acute distress Orientation/consciousness: patient oriented x3 Neck Neck: Yes normal visual inspection Resp Effort & Inspection: normal respiratory effort Auscultation: clear to auscultation bilaterally, no rales, no rhonchi and no wheezes Cardio Jugular venous distension: no JVD Rate: regular rate Rhythm: regular rhythm Heart sounds: S1 normal heart sound present, S2 normal heart sound present, no murmurs and no rubs Neuro General: patient oriented x3 Extrem General: Yes normal to inspection, No no pedal edema and No calf tenderness Psych Appearance: grossly normal Mental Status: mental status grossly normal Speech and movement: Normal speech and movement present Assessment & Plan Assessment & Plan (1) NSTEMI (non-ST elevated myocardial infarction): Code(s): I21.4 - Non-ST elevation (NSTEMI) myocardial infarction Category: Medical Plan: [facility] [place] with chest discomfort, elevated troponin. Echo showed normal EF and no regional wall motion abnormalities. Cardiac catheterization which showed mid RCA 50% stenosis. His had 2 days prior. He was thought to have some mild takotsubo cardiomyopathy. No concerning symptoms since that time. Continue with med management for CAD with aspirin indefinitely. Continue rosuvastatin with ideal LDL goal less than 70. Continue amlodipine and lisinopril. Emergency care if ever needed for symptoms. Cardiology follow-up in 4 months, sooner if needed. (2) CAD (coronary artery disease): Comment: CTA of the coronary arteries on 11/16/2022 which showed nonobstructive coronary artery disease, moderate proximal LAD stenosis 50-60%, mid LAD 25%, 1st OM less than 50%. Cardiac cath [facility] 01/06/2025 moderate proximal RCA, minimal luminal irregularities in LAD and left circ circumflex, ECHO nl EF Code(s): I25.10 - Atherosclerotic heart disease of [place] coronary artery without angina pectoris Category: Medical Plan: As above. (3) S/P cardiac cath: Comment: 01/07/2025, left main normal, lad minimal irregularities, left circumflex normal, RCA mid 50% stenosis Code(s): Z98.890 - Other specified postprocedural states Category: Surgical (4) JULIEN (dyspnea on exertion): Comment: Dyspnea on exertion is mild, as long as he does not climb stairs or walk up [place]. Code(s): R06.00 - Dyspnea, unspecified Category: Medical Plan: History of COPD and chronic mild shortness of breath with exertion. Follows with pulmonology (5) COPD (chronic obstructive pulmonary disease): Comment: He does have chronic obstructive pulmonary disease for past many years, it is staying very stable. [place]: Stiolto 2 inhalation ONCE A DAY and albuterol HFA 2 puffs Q 4-6 hours only p.r.n.. Code(s): J44.9 - Chronic obstructive pulmonary disease, unspecified Category: Medical Plan: Follows with pulmonology (6) Hypertension: Code(s): I10 - Essential (primary) hypertension Category: Medical Plan: Blood pressure goal less than 130/80, well controlled at this time. His echo 01/06/25 shows moderate LVH, severe septal asymmetric hypertrophy. Continue lisinopril and amlodipine. (7) LVH (left ventricular hypertrophy): Code(s): I51.7 - Cardiomegaly Category: Medical Plan: Moderate LVH on last echo (8) Asymmetric septal hypertrophy: Code(s): I42.2 - Other hypertrophic cardiomyopathy Category: Medical Plan: Severe asymmetric septal hypertrophy seen on last echo. No mention of outflow obstruction on echocardiogram. Blood pressure is well controlled. He has some shortness of breath which has been chronic. No signs of heart failure on exam. Plan Time spent on chart review, documentation, interview, assessment Coding Level of Care Code Est Pt Level 4 (01951) Complex EM visit Add On G2211 Diagnoses NSTEMI (non-ST elevated myocardial infarction) I21.4 CAD (coronary artery disease) I25.10 S/P cardiac cath Z98.890 JULIEN (dyspnea on exertion) R06.00 COPD (chronic obstructive pulmonary disease) J44.9 Hypertension I10 LVH (left ventricular hypertrophy) I51.7 Asymmetric septal hypertrophy I42.2 Time Spent (min) 30
--- OUTSIDE RECORDS SUMMARY | 2025-08-28 09:32 | XMS_ITS | Clinical Summary ---
Author Organization [facility] ity Address [address] [place] [id number] Care Team Providers Care Acting Professor Name Role Phone Gifty Frankel MD Primary Care Provider [phone] Social History Tobacco Use Types Packs/Day Years [...] age to complete this topic Care Teams Acting Professor Relationship Specialty Start Date End Date Gifty Frankel MD PCP - General Internal Medicine 01/25/21
== END 2025-08-28 09:26 | disposition home or self-care (01) ==
LOC: HO.HCS 08:50
PROVIDERS: PCP Internal Medicine; Visit Provider Nurse Practitioner Family
DX: I21.4 Non-ST elevation (NSTEMI) myocardial infarction (principal); I25.10 Atherosclerotic heart disease of native coronary artery without angina pectoris; Z98.890 Other specified postprocedural states; R06.00 Dyspnea, unspecified; J44.9 Chronic obstructive pulmonary disease, unspecified; I10 Essential (primary) hypertension; I51.7 Cardiomegaly; I42.2 Other hypertrophic cardiomyopathy
CPT/HCPCS: 99214; G2211

== ENCOUNTER → 2025-08-28 08:49 | Outpatient (BNVA) | payer MEDICARE, MEDICAID, SELFPAY | PROVIDERS: PCP Internal Medicine; Visit Provider Nurse Practitioner Family | DX: I25.10 Atherosclerotic heart disease of native coronary artery without angina pectoris (principal); Z98.890 Other specified postprocedural states; R06.00 Dyspnea, unspecified; J44.9 Chronic obstructive pulmonary disease, unspecified; I11.0 Hypertensive heart disease with heart failure; I50.9 Heart failure, unspecified; I42.2 Other hypertrophic cardiomyopathy; Z79.82 Long term (current) use of aspirin | CPT/HCPCS: 99212 ==

== ENCOUNTER 2025-09-29 07:52 | Outpatient (REF) | payer MEDICARE, MEDICAID, SELFPAY ==
[2025-09-29 10:12] LABS: MANUAL DIFF FLAG NO
[2025-09-29 10:56] LABS: Hematocrit 41.4 % (42.0-52.0); Hemoglobin 12.9 g/dl (14.0-18.0); Imm Gran Abs Auto 0.03 X10*3/uL (0.00-0.03); Imm Gran Pct Auto 0.4 % (0.0-0.4); Lymphocytes Absolute Auto 0.6 X10*3/uL (1.2-4.9); Mean Corpuscular HGB Conc 31.2 g/dl (31.0-36.0); Mean Corpuscular Hemoglobin 26.2 pg (27.0-33.0); Mean Corpuscular Volume 84.0 fL (80.0-98.0); NRBC Abs Auto 0.000 X10*3/uL (0.0-0.012); NRBC Pct Auto 0.0 /100WBC (0.0-0.2); Platelet Count 183 X10*3/uL (160-400); Red Blood Count 4.93 X10*6/uL (4.60-5.80); White Blood Count 7.3 X10*3/uL (4.8-10.8)
== END 2025-09-29 07:53 | disposition home or self-care (01) ==
LOC: HO.LAB 07:52
PROVIDERS: PCP Internal Medicine; Visit Provider Psychiatry & Neurology Neurology
DX: G89.4 Chronic pain syndrome (principal); G47.00 Insomnia, unspecified; Z79.52 Long term (current) use of systemic steroids
CPT/HCPCS: 36415; 82784; 85025; 99212

== ENCOUNTER 2025-09-29 07:52 | Outpatient (AMB) | payer MEDICARE, MEDICAID, SELFPAY ==
--- OUTSIDE RECORDS SUMMARY | 2025-09-29 07:55 | XMS_ITS | Clinical Summary ---
Author Organization [facility] ity Address [address] [place] [phone] Care Team Providers Care Physical Fitness Teacher Name Role Phone Gifty Frankel MD Primary Care Provider [phone] Social History Tobacco Use Types Packs/Day Years [...] 2) 2001 Depression Screening 11/06/2024 COVID-19 Vaccine (1 - 2024-2 6 season) 2025 Influenza Vaccine (#1) 2025 RSV [...] age to complete this topic Care Teams Physical Fitness Teacher Relationship Specialty Start Date End Date Gifty Frankel MD PCP - General Internal Medicine 01/25/21
--- NOTE | 2025-09-29 08:13 | MHC.OFFVIS ---
Intake Visit Reasons: 1m MG Allergies No Known Allergies (No Known Allergies*) Allergy (Verified 08/28/25 08:57) HPI Comments Details: 75 y/o man with HTN, HLD, CAD, LBP treated with a spinal cord stiumulator, and antibody positive Myasthenia Gravis that presented with double vision in 2019. He is presenting for follow-up of generalized weakness and shortness of breath. The patient reports experiencing significant weakness and becomes short of breath with minimal exertion, such as walking a short distance. When lying on the back, the patient feels a sensation of partial obstruction affecting breathing. Associated symptoms include intermittent double vision and occasionally garbled speech, though the patient denies difficulty with chewing or swallowing. The patient also reports difficulty getting out of a chair and dizziness upon standing. The patient received IVIG treatment last week but feels it provided only marginal benefit. The patient is currently taking 5 mg of prednisone. A pulmonary consultation over a month ago with Dr. Dawson revealed a 15% decline in lung function on a breathing test compared to 3-4 years ago, and a repeat pulmonary function test is scheduled for early November. The patient also complains of eyelid twitching, which has been described as a benign issue. 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) Back pain Arthritis JULIEN (dyspnea on exertion) Disc degeneration, lumbar Hyperglycemia Abdominal pain Pulmonary nodule Hyperlipidemia COPD (chronic obstructive pulmonary disease) Myasthenia gravis Scoliosis Spondylosis of lumbosacral spine with radiculopathy Degenerative disc disease, lumbar Hypothyroid Leg cramps Emphysema of lung Iron deficiency anemia Osteoarthritis Diastolic dysfunction Hypertension Incomplete emptying of bladder due to benign prostatic hyperplasia Nocturia associated with benign prostatic hyperplasia BPH loc w urin obs/LUTS Surgical History History of right inguinal hernia repair (~10/31/23) History of carpal tunnel surgery Hx of hand surgery History of left inguinal hernia repair S/P insertion of spinal cord stimulator History of colonoscopy History of lung surgery (~11/2020) History of total right hip arthroplasty (~02/2018) History of hydrocelectomy Hx of tonsillectomy Family History Father No problems noted. Mother No problems noted. Social History Household Members: None Household Members Other:: spouse has dementia Housing: House Are you a primary vision care associate to a significant other at home: Yes (-has dementia) Do you presently have visiting nurse or other home services: No Alcohol intake: never Patient Tobacco Use Status: Never used Tobacco e-Cigarette/Vaping Use: Never Used Second Hand Smoke Exposure: No Advance Directives Date on File: 11/01/23 service: No Current occupational status: retired Current occupation: right handed Cognitive needs: No Hearing needs: No Vision needs: No Review of Systems Narrative General: Complain of fatigue and tiredness Respiratory: Complain of shortness of breath Cardiovascular: No chest pain or palpitation Neurological: Difficulty walking. Denies swallowing difficulty or speaking difficulty Psychiatric: Feeling depressed Genitourinary: No loss of bowel bladder control Physical Exam Neuro Other: Mental Status: Alert and oriented to person, place, and time. Normal attention. Normal spontaneous speech, fluency, and comprehension. Cranial Nerves: CN II: Visual bedolla full to confrontation, visual acuity intact. CN III, IV, : Pupils equal, round, reactive to light and accommodation. Extraocular movements are normal. CN V: Facial sensation is normal. CN VII: Facial movements symmetrical. CN VIII: Hearing intact to bedside conversation is normal. CN IX, X: Palate elevates symmetrically. CN XI: Shoulder shrug and head turn symmetrical. CN XII: Tongue midline without atrophy or fasciculations. Gait and Station: No obvious gait abnormality. No ataxia or instability. Extrapyramidal: Full facial expressions and blinking. No rigidity. Movements are appropriate with no tremor or abnormality. Speech: Normal; no dysarthria or tremor. Assessment & Plan Assessment & Plan (1) Myasthenia gravis: Comment: [place] [facility] [facility] titres [facility] 2019: WNL NCV/EMG RTUE Severe right median neuropathy across the Carpal tunnel. 12/07/21. CT [place] [facility]: R lower lumg mass with adenopathy NCV/EMG LE 06/17/20 Moderate to severe axonal sensory and motor peripheral neuropathy. CT [place] [facility] [place]: mild cerebellar and cerebral atrophy MRI brain WO [place] [facility] [place] and 2019: atrophy and mild MVD Code(s): G70.00 - Myasthenia gravis without (acute) exacerbation Category: Medical (2) Chronic pain syndrome: Code(s): G89.4 - Chronic pain syndrome Category: Medical Plan Impression: 1. Myasthenia gravis not fully control 2. Depression Recommendations: 1. Continue prednisone 5 mg a day 2. Pyridostigmine 60 mg 1-2, 2 to 3 times a day 3. Azathioprine 50 mg daily 4. Sertraline 100mg a day 5. Will try to obtain Vyvgart SC injection 6. Ig level I discussed with the patient that the recent course of IVIG does not seem to be providing adequate symptom control. I have sent a prescription for a new medication to the pharmacy and will also start the paperwork for other potential treatments, but I noted that insurance may not approve them based on their specific criteria. I ordered blood tests to be done today and advised the patient to continue all other current medications. We also discussed the dizziness on standing, and I recommended taking it easy when changing positions and staying well-hydrated. A follow-up visit is recommended in about a month to review progress. Orders: Orders Immunoglobulins,IgG IgA IgM Today G70.00 - Myasthenia gravis without (acute) exacerbation Complete Blood Count Auto Diff Today G70.00 - Myasthenia gravis without (acute) exacerbation Medications: New legivasehorj-txwhdutkatqi-emdh 1,000 mg-10,000 unit/5 mL (Vyvgart Hytrulo) 5 mL subcut QWEEK 20 mL 0RF 4 weeks Coding Level of Care Code Est Pt Level 4 (33052) Diagnoses Myasthenia gravis G70.00 Chronic pain syndrome G89.4
== END 2025-09-29 08:42 | disposition home or self-care (01) ==
LOC: HO.HSM 07:52
PROVIDERS: PCP Internal Medicine; Visit Provider Psychiatry & Neurology Neurology
DX: G70.00 Myasthenia gravis without (acute) exacerbation (principal); G89.4 Chronic pain syndrome
CPT/HCPCS: 99214

== ENCOUNTER 2025-10-16 10:40 | Outpatient (AMB) | payer MEDICARE, MEDICAID, SELFPAY ==
[2025-10-16 10:49] VITALS: BP 130/72; PULSE 70; O2SAT 98; BMI 28.2
--- NOTE | 2025-10-16 10:49 | MHC.OFFVIS ---
Vital Signs 10/16/25 10:49 Height 6 ft Weight 208 lb BMI 28.2 BP 130/72 Blood Pressure Location Lt brachial Position Sitting Pulse 70 Pulse Source Pulse Oximeter Pulse Oximetry (%) 98 Oxygen Delivery Method Room Air Intake Visit Reasons: COPD Intake Note: pt is here for follow up and states he states he is huffing and puffing on exertion, sitting is okay. please refill albuterol hfa Unemployment Insurance Director Required: No Datastage Architect: Datastage Architect offered & declined Allergies No Known Allergies (No Known Allergies*) Allergy (Verified 10/16/25 11:09) Medication List - Last Reconciled 10/16/25 by David Vizcaino MD acetaminophen (Tylenol) 650 mg PO Q6H PRN amlodipine 2.5 mg PO DAILY aspirin 81 mg PO DAILY azathioprine 50 mg PO DAILY pepttnupljxx-mnysxleflzjd-bock 1,000 mg-10,000 unit/5 mL (Vyvgart Hytrulo) 5 mL subcut QWEEK 4 weeks glycopyrrolate-formoterol 9-4.8 mcg (Bevespi Aerosphere) 2 puffs PO BID levothyroxine 50 mcg PO DAILY lisinopril 20 mg PO DAILY multivitamin 1 tab PO DAILY nitroglycerin 0.4 mg sublingual Q5M PRN omeprazole 20 mg PO DAILY@0630 prednisone 5 mg PO DAILY pyridostigmine bromide 60 - 120 mg (1 - 2 x 60 mg) PO TID rosuvastatin 5 mg PO DAILY 90 days sertraline 100 mg PO DAILY Ventolin HFA 90 mcg/actuation (albuterol sulfate) 2 puffs inhalation Q4-6H PRN NS Do you need a note to return to daycare/school/sports/work: No HPI HPI COPD: Details: PEYMAN , IS HERE FOR FOLLOW-UP AFTER 2 MONTHS. BREATHING STATUS HAS REMAINED STABLE, HE HAS HIS USUAL MUSCLE WEAKNESS, AND THAT MAKES HIM SHORT OF BREATH IF HE WALKS FOR MORE THAN 5 MINUTES. HE IS DOING OKAY AT REST AND DOES NOT HAVE MUCH COUGH OR WHEEZING. SLEEPS FAIRLY GOOD. 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) Back pain Arthritis JULIEN (dyspnea on exertion) Disc degeneration, lumbar Hyperglycemia Abdominal pain Pulmonary nodule Hyperlipidemia COPD (chronic obstructive pulmonary disease) Myasthenia gravis Scoliosis Spondylosis of lumbosacral spine with radiculopathy Degenerative disc disease, lumbar Hypothyroid Leg cramps Emphysema of lung Iron deficiency anemia Osteoarthritis Diastolic dysfunction Hypertension Incomplete emptying of bladder due to benign prostatic hyperplasia Nocturia associated with benign prostatic hyperplasia BPH loc w urin obs/LUTS Surgical History History of right inguinal hernia repair (~10/31/23) History of carpal tunnel surgery Hx of hand surgery History of left inguinal hernia repair S/P insertion of spinal cord stimulator History of colonoscopy History of lung surgery (~11/2020) History of total right hip arthroplasty (~02/2018) History of hydrocelectomy Hx of tonsillectomy Family History Father No problems noted. Mother No problems noted. Social History Household Members: None Household Members Other:: spouse has dementia Housing: House Are you a primary healthcare administration intern to a significant other at home: Yes (-has dementia) Do you presently have visiting nurse or other home services: No Alcohol intake: never Patient Tobacco Use Status: Never used Tobacco e-Cigarette/Vaping Use: Never Used Second Hand Smoke Exposure: No Advance Directives Date on File: 11/01/23 service: No Current occupational status: retired Current occupation: right handed Cognitive needs: No Hearing needs: No Vision needs: No Review of Systems Const All systems reviewed & are unremarkable except as noted in HPI and below Eyes Reports no additional complaints ENT Reports no additional complaints Card Denies chest pain, Denies irregular heart rhythm and Reports dyspnea on exertion Resp Reports as per HPI and Reports dyspnea on exertion GI Reports no additional complaints Reports no additional complaints Musc Reports back pain (Mild) Skin/Breast Reports system reviewed and no additional complaints, except as documented Psych Reports no additional complaints Endo Reports no additional complaints De/Lymph Reports no additional complaints Physical Exam Const General: comfortable, no acute distress, alert and awake Orientation/consciousness: patient oriented x3 HEENT Head: Yes normal to inspection General nose exam: No nasal polyps present, No nasal discharge present and Other nasal findings present ( mild nasal congestion is noted) Face and sinus: Yes sinuses nontender Mouth: oropharynx normal Throat: Yes posterior oropharynx normal Eyes General: appearance normal, both eyes and all related structures Neck Neck: Yes normal visual inspection, Yes no lymphadenopathy, Yes trachea midline and Yes no JVD Thyroid: Thyroid normal Chest Chest palpation & inspection: normal inspection of the chest, normal palpation of entire chest wall and no tenderness Resp Other: Percussion note resonant, breath sounds are slightly diminished over the basilar areas. No wheezes ,CREPS or rhonchi are heard. Cardio Palpation: PMI not normal (Not palpable) Rate: regular rate Rhythm: regular rhythm Heart sounds: no gallops and no murmurs GI Palpation (GI): Soft to palpation, nontender, No hepatosplenomegaly present, no masses and Other GI palpation findings present (Abdomen is moderately obese) Auscultation: normal bowel sounds Back/Spine/Pelvis Thoracic/Lumbar Spine: thoracic and lumbar spine normal to inspection Skin General skin exam: no rashes or lesions noted Neuro General: patient oriented x3 and no focal motor deficits Cranial nerves: Yes CN's II-XII intact bilaterally Extrem General: Yes normal to inspection, Yes no clubbing, cyanosis or edema and Yes no calf tenderness Psych Appearance: grossly normal and well kempt Speech and movement: Normal speech and movement present Assessment & Plan Assessment & Plan (1) COPD (chronic obstructive pulmonary disease): Comment: HE HAS MODERATELY SEVERE CHRONIC OBSTRUCTIVE PULMONARY DISORDER. WITH HIS CURRENT MEDICAL REGIMEN HIS PULMONARY STATUS IS STAYING STABLE. COMPLAINS OF INCREASED SHORTNESS OF BREATH AND HAS TO STOP AFTER WALKING ABOUT HALF A BLOCK. LUCKILY HE HAS HAD NO ACUTE RESPIRATORY INFECTION. Code(s): J44.9 - Chronic obstructive pulmonary disease, unspecified Category: Medical Plan: CONTINUE USING BEVESPI (GLYCO PYROLATE AND FORMOTEROL) INHALER B.I.D.. VENTOLIN HFA 2 PUFFS Q 6 HOURS P.R.N.. HE IS ALSO ON PREDNISONE 5 MG DAILY FOR HIS MYASTHENIA GRAVIS (2) Allergic rhinitis: Comment: He presents with symptoms of nasal congestion postnasal drip and cough. at nighttime This seems to be secondary to allergic rhinitis. In December 2022, EIOSINOPHIL count was 0.6 ( 600 ) Code(s): J30.9 - Allergic rhinitis, unspecified Category: Medical Plan: MAY USE FLONASE NASAL SPRAY 1 SQUIRT B.I.D. IN EACH NOSTRIL BUT ONLY P.R.N. (3) Myasthenia gravis: Comment: ACR Ab titre at [facility] [place] in Jun 2020 and 2023: High titres [facility] P/Q at [facility] in 2019: WNL NCV/EMG RTUE Severe right median neuropathy across the Carpal tunnel. 12/07/21. CT chest WWO at [facility] [place] in Sep 2020: R lower lumg mass with adenopathy NCV/EMG LE 06/17/20 Moderate to severe axonal sensory and motor peripheral neuropathy. CT brain WO at [facility] [place] In 2017 and 2019: mild cerebellar and cerebral atrophy MRI brain WO at [facility] [place] in 2018 and 2019: atrophy and mild MVD Code(s): G70.00 - Myasthenia gravis without (acute) exacerbation Category: Medical Plan: PART OF HIS MYASTHENIA GRAVIS HIS RESPIRATORY MUSCLES ARE GETTING SOMEWHAT WEAKER THAN BEFORE. ON HIS LAST VISIT SPIROMETRY SHOWED THAT THE FLOW VOLUMES HAD DECLINED IN THE LAST FEW YEARS Plan PATIENT IS SCHEDULED TO HAVE COMPLETE PULMONARY FUNCTION TEST CONTINUE PREDNISONE 5 MG DAILY Medications: Refilled Ventolin HFA 90 mcg/actuation (albuterol sulfate) 2 puffs inhalation Q4-6H PRN 18 grams 4RF Wheezing NS Coding Level of Care Code Est Pt Level 3 (09841) Diagnoses COPD (chronic obstructive pulmonary disease) J44.9 Allergic rhinitis J30.9 Myasthenia gravis G70.00
== END 2025-10-16 11:10 | disposition home or self-care (01) ==
LOC: HO.HPS 10:41
PROVIDERS: PCP Internal Medicine; Visit Provider Internal Medicine
DX: J44.9 Chronic obstructive pulmonary disease, unspecified (principal); J30.9 Allergic rhinitis, unspecified; G70.00 Myasthenia gravis without (acute) exacerbation
CPT/HCPCS: 99213

== ENCOUNTER → 2025-10-16 10:40 | Outpatient (BNVA) | payer MEDICARE, MEDICAID, SELFPAY | PROVIDERS: PCP Internal Medicine; Visit Provider Internal Medicine | DX: G70.00 Myasthenia gravis without (acute) exacerbation (principal); J44.9 Chronic obstructive pulmonary disease, unspecified; J30.9 Allergic rhinitis, unspecified | CPT/HCPCS: 99212 ==

== ENCOUNTER 2025-10-29 08:03 | Outpatient (AMB) | payer MEDICARE, MEDICAID, SELFPAY ==
--- NOTE | 2025-10-29 08:12 | A.OFFVIS_ITS ---
Intake Visit Reasons: 4 weeks after VYVGART Ok per mzk Allergies No Known Allergies (No Known Allergies*) Allergy (Verified 10/16/25 11:09) HPI Comments Details: 75 y/o man with HTN, HLD, CAD, LBP treated with a spinal cord stimulator, and antibody positive Myasthenia Gravis that presented with double vision in 2019. He is presenting for follow-up for management of myasthenia gravis. He reports ongoing muscle weakness, some cognitive hesitation, and dyspnea on exertion. He also notes occasional slight variations in the clarity of his speech. He denies any difficulty with chewing or swallowing, has no diplopia, and no ptosis. His myasthenia gravis is currently managed with 5 mg of prednisone and azathioprine, which is keeping his condition stable. He experiences some trouble with his right leg at times, causing him to get caught on things, and he has tripped in the past. Additional medical history includes chronic back pain for the last three years and occasional dizziness upon standing. He recently developed right shoulder pain, which started about a week ago, after he may have pulled something. He has been managing this new pain with acetaminophen. For his mental health, the patient is taking sertraline for depression and attends weekly counseling sessions. He reports significant stress related to having to move from the home he has lived in for over 40 years. 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) Back pain Arthritis JULIEN (dyspnea on exertion) Disc degeneration, lumbar Hyperglycemia Abdominal pain Pulmonary nodule Hyperlipidemia COPD (chronic obstructive pulmonary disease) Myasthenia gravis Scoliosis Spondylosis of lumbosacral spine with radiculopathy Degenerative disc disease, lumbar Hypothyroid Leg cramps Emphysema of lung Iron deficiency anemia Osteoarthritis Diastolic dysfunction Hypertension Incomplete emptying of bladder due to benign prostatic hyperplasia Nocturia associated with benign prostatic hyperplasia BPH loc w urin obs/LUTS Surgical History History of right inguinal hernia repair (~10/31/23) History of carpal tunnel surgery Hx of hand surgery History of left inguinal hernia repair S/P insertion of spinal cord stimulator History of colonoscopy History of lung surgery (~11/2020) History of total right hip arthroplasty (~02/2018) History of hydrocelectomy Hx of tonsillectomy Family History Father No problems noted. Mother No problems noted. Social History Household Members: None Household Members Other:: spouse has dementia Housing: House Are you a primary child care cook to a significant other at home: Yes (-has dementia) Do you presently have visiting nurse or other home services: No Alcohol intake: never Patient Tobacco Use Status: Never used Tobacco e-Cigarette/Vaping Use: Never Used Second Hand Smoke Exposure: No Advance Directives Date on File: 11/01/23 service: No Current occupational status: retired Current occupation: right handed Cognitive needs: No Hearing needs: No Vision needs: No Review of Systems Narrative - Constitutional: Reports muscle weakness. - Eyes: Denies diplopia or ptosis. - HEENT/Mouth: Denies difficulty with chewing or swallowing. - Respiratory: Reports dyspnea on exertion. - Neurological: Reports occasional mild dysarthria, dizziness upon standing, and intermittent twitches. - Musculoskeletal: Reports right leg weakness, chronic back pain for 3 years, and acute right shoulder pain for 1 week. - Psychiatric: Reports being treated for depression and is experiencing significant stress. Physical Exam Neuro Other: Mental Status: Alert and oriented to person, place, and time. Normal attention. Normal spontaneous speech, fluency, and comprehension. No obvious issues with mood and memory. Affect is appropriate. Cranial Nerves: CN II: Visual bedolla full to confrontation, visual acuity intact. CN III, IV, : Pupils equal, round, reactive to light and accommodation. Extraocular movements are normal. CN V: Facial sensation is normal. CN VII: Facial movements symmetrical. CN VIII: Hearing intact to bedside conversation is normal. CN IX, X: Palate elevates symmetrically. CN XI: Shoulder shrug and head turn symmetrical. CN XII: Tongue midline without atrophy or fasciculations. Motor: Moderate difficulty getting out of chair. Coordination: Owohur-vz-bnwo is okay but he has difficulty doing with right arm because of acute right shoulder pain. Gait and Station: Cautious with a cane. Extrapyramidal: Full facial expressions and blinking. No rigidity. Movements are appropriate with no tremor or abnormality. Speech: Normal; no dysarthria or tremor. Results Reviewed Results Reviewed: Laboratory Tests 09/29/25 10:11 IgG Total 3162 H IgA Total 272 IgM 72 Assessment & Plan Assessment & Plan (1) Myasthenia gravis: Comment: ACR Ab titre at [facility] [place] in Jun 2020 and 2023: High titres [facility]GCC P/Q at [facility] in 2019: WNL NCV/EMG RTUE Severe right median neuropathy across the Carpal tunnel. 12/07/21. CT chest WWO at [facility] [place] in Sep 2020: R lower lumg mass with adenopathy NCV/EMG LE 06/17/20 Moderate to severe axonal sensory and motor peripheral neuropathy. CT brain WO at [facility] In 2017 and 2019: mild cerebellar and cerebral atrophy MRI brain WO at [facility] in 2018 and 2019: atrophy and mild MVD Code(s): G70.00 - Myasthenia gravis without (acute) exacerbation Category: Medical (2) Degenerative disc disease, lumbar: Code(s): M51.36 - Other intervertebral disc degeneration, lumbar region Category: Medical Qualifiers: Disc-related pain type: discogenic back pain and lower extremity pain Qualified Code(s): M51.362 - Other intervertebral disc degeneration, lumbar region with discogenic back pain and lower extremity pain (3) Chronic pain syndrome: Code(s): G89.4 - Chronic pain syndrome Category: Medical (4) Depression: Code(s): F32.A - Depression, unspecified Category: Medical Qualifiers: Depression Type: persistent depressive disorder Qualified Code(s): F34.1 - Dysthymic disorder (5) Shoulder pain, right: Code(s): M25.511 - Pain in right shoulder Category: Medical Qualifiers: Chronicity: acute Qualified Code(s): M25.511 - Pain in right shoulder Plan Impression: 1. Myasthenia gravis (MG-ADL 4) 2. Depression Recommendations: 1. Continue prednisone 5 mg a day 2. Pyridostigmine 60 mg 1-2, 2 to 3 times a day 3. Azathioprine 50 mg daily 4. Sertraline 100mg a day 5. Naproxen 500mg one a day as needed for shoulder pain I discussed with the patient that his myasthenia gravis is stable on his current medications, prednisone and azathioprine. I explained that he does not currently qualify for the new treatment, Vyvgart (Wibgard), because his symptoms do not meet the severity criteria set by the insurance company, which are based on the patient populations from the drug's clinical trials. I clarified that these criteria include more severe symptoms like significant difficulty swallowing, double vision, and ptosis, which he does not have. We agreed to revisit this option if his condition worsens in the future. I confirmed that he can safely receive both the flu and COVID-19 shots. For his new right shoulder pain, I advised him to follow up with his primary care physician and provided a few sample pills of a pain medication to use until his appointment. Medications: New naproxen 500 mg orally one a day for pain with food; 20 tabs 0RF Coding Level of Care Code Est Pt Level 4 (18793) Diagnoses Myasthenia gravis G70.00 Degeneration of intervertebral disc of lumbar region with discogenic back pain and lower extremity pain M51.362 Disc-related pain type: discogenic back pain and lower extremity pain Chronic pain syndrome G89.4 Persistent depressive disorder F34.1 Depression Type: persistent depressive disorder Acute pain of right shoulder M25.511 Chronicity: acute
== END 2025-10-29 08:28 | disposition home or self-care (01) ==
LOC: HO.HSM 08:04
PROVIDERS: PCP Internal Medicine; Visit Provider Psychiatry & Neurology Neurology
DX: G70.00 Myasthenia gravis without (acute) exacerbation (principal); M51.362 Other intervertebral disc degeneration, lumbar region with discogenic back pain and lower extremity pain; G89.4 Chronic pain syndrome; F34.1 Dysthymic disorder; M25.511 Pain in right shoulder
CPT/HCPCS: 99214

== ENCOUNTER → 2025-10-29 08:03 | Outpatient (BNVA) | payer MEDICARE, MEDICAID, SELFPAY | PROVIDERS: PCP Internal Medicine; Visit Provider Psychiatry & Neurology Neurology | DX: G70.00 Myasthenia gravis without (acute) exacerbation (principal); M25.511 Pain in right shoulder; M51.362 Other intervertebral disc degeneration, lumbar region with discogenic back pain and lower extremity pain; G89.4 Chronic pain syndrome; F34.1 Dysthymic disorder; R06.02 Shortness of breath | CPT/HCPCS: 99212 ==

== ENCOUNTER 2025-11-04 07:52 | Outpatient (REF) | payer MEDICARE, MEDICAID, SELFPAY ==
--- NOTE | 2025-11-04 07:54 | PFT_ITS ---
Spirometry [] Lung Volumes [] Diffusion Capacity [] Methacholine Challenge [] Flow Volume Loops [] MVV [] MIP/MEP(Max inspiratory pressure/Max expiratory pressure) [] 6 Minute Walk Test [] ABG [] Interpretation [] MTDD
[2025-11-04 08:37] VITALS: PULSE 68
--- OUTSIDE RECORDS SUMMARY | 2025-11-04 09:17 | XMS_ITS | Clinical Summary ---
Author Organization [facility] ity Address [address] [place] [id number] Care Team Providers Care Form Builder Helper Name Role Phone Gifty Frankel MD Primary Care Provider [phone] Social History Tobacco Use Types Packs/Day Years [...] age to complete this topic Care Teams Form Builder Helper Relationship Specialty Start Date End Date Gifty Frankel MD PCP - General Internal Medicine 01/25/21
== END 2025-11-04 07:53 | disposition home or self-care (01) ==
LOC: HO.RESP 07:52
PROVIDERS: Absent Provider Urology; PCP Internal Medicine; Visit Provider Internal Medicine
DX: G70.00 Myasthenia gravis without (acute) exacerbation (principal); M62.50 Muscle wasting and atrophy, not elsewhere classified, unspecified site
CPT/HCPCS: 36415; 84402; 84403; 94060; 94640; 94727; 94729

== ENCOUNTER → 2025-11-04 07:54 | Outpatient (BNV) | payer MEDICARE, MEDICAID, SELFPAY | PROVIDERS: Absent Provider Urology; PCP Internal Medicine; Visit Provider Internal Medicine Pulmonary Disease | DX: G70.00 Myasthenia gravis without (acute) exacerbation (principal) | CPT/HCPCS: 94060; 94727; 94729 ==